=== PATIENT | female | born 1970 | race Hispanic/Latino ===

== ENCOUNTER 2017-02-12 10:13 | Emergency (ER) | payer MEDICARE, MEDICAID ==
[2017-02-12] MEDS ORDERED: predniSONE 20 MG TAB ONE (10:36)
== END 2017-02-12 12:00 | disposition home or self-care (01) ==
LOC: ERS 10:13
DX: J45.901 Unspecified asthma with (acute) exacerbation (principal); K21.9 Gastro-esophageal reflux disease without esophagitis; I10 Essential (primary) hypertension; F41.9 Anxiety disorder, unspecified; F31.9 Bipolar disorder, unspecified
CPT/HCPCS: 93005; 94640; J7506

== ENCOUNTER 2017-03-08 16:27 | Outpatient (CLI) | payer MEDICARE, MEDICAID | END 2017-03-08 16:28 | disposition home or self-care (01) | LOC: BICRAD 16:27 | PROVIDERS: ATTEND Internal Medicine | DX: S93.401A Sprain of unspecified ligament of right ankle, initial encounter (principal); M79.89 Other specified soft tissue disorders ==

== ENCOUNTER 2017-11-20 08:48 | Inpatient (IN) | payer MEDICARE, MEDICAID ==
[2017-11-20 09:05] LABS: #Basophils 0.1 thou/uL (0.0-0.2); #Eosinphils 0.5 thou/uL (0.0-0.7); #Lymphocytes 3.2 thou/uL (1.20-3.40); #Monocytes 0.7 thou/uL (0.11-0.59); #Neutrophils 13.9 thou/uL (1.40-6.50); %Basophils 0.5 % (0.0-1.0); %Eosinophils 2.7 % (0.0-10.0); %Lymphocytes 17.6 % (21.0-51.0); %Monocytes 3.6 % (0.0-10.0); %Neutrophils 75.7 % (42.0-75.0); Hemoglobin 12.9 g/dL (12.0-16.0); Mean Corpuscular Hemoglobin 31.7 pg (27.0-31.0); Mean Platelet Volume 6.7 fL (7.4-10.4); Platelet Count 412 thou/uL (130-400); RBC Distribution Width 12.1 % (11.5-14.5); Red Blood Cell (RBC) Count 4.06 mill/uL (4.20-5.40); White Blood Cell (WBC) Count 18.3 thou/uL (4.8-10.8)
[2017-11-20] MEDS ORDERED: Mannitol 12.5 GM/50 ML ONE ×2 (09:07→09:42)
[2017-11-20] MEDS ORDERED: niCARdipine 20MG In NaCl 20 MG/200 ML BAG ONE (09:07)
[2017-11-20] MEDS ORDERED: manNITOL 20% 250 ML IVPB SCH (09:15)
[2017-11-20 09:19] LABS: INR-International Normal Ratio 0.9; PTT 28.5 SEC (22.9-36.1); Prothrombin Time 12.2 SEC (12.0-14.7)
[2017-11-20 09:21] LABS: ALT (SGPT) 12 U/L (8-55); AST (SGOT) 15 U/L (5-34); Albumin 3.9 g/dL (3.5-5.0); Alkaline Phosphatase 143 U/L (40-150); Anion Gap 16 mmol/L (10-20); BUN (Urea Nitrogen) 7 mg/dL (7.0-18.7); Bilirubin, Total 0.3 mg/dL (0.2-1.2); CK (CPK) 80 U/L (29-168); Calc. Creatinine Clearance 0 mL/min (70-130); Calcium 8.5 mg/dL (7.8-10.44); Carbon Dioxide 18 mmol/L (22-29); Chloride 104 mmol/L (98-107); Estimated GFR-MDRD 88; Globulin 3.2 g/dL (2.4-3.5); Glucose 285 mg/dL (70-105); Potassium 3.4 mmol/L (3.5-5.1); Protein, Total 7.1 g/dL (6.0-8.3); Sodium 135 mmol/L (136-145)
[2017-11-20 09:28] LABS: CKMB 1.7 ng/mL (0-6.6); Troponin I Less than 0.010 ng/mL (< 0.028)
--- NOTE | 2017-11-20 09:34 | CT ---
CT BRAIN: Date: 11-20-17 Provided Clinical History: Headache. FINDINGS: No comparisons. There is a large right parenchymal hematoma centered in the expected location of the right lentiform nucleus/thalamus region. This measures at least 6.7 x 4.6 cm in greatest transverse d imensions. There is surrounding vasogenic edema extending into the right cerebral peduncle and rancho. There is approximately 8 mm of right to left midline shift. There is right sided uncal herniation. Th e ventricular system is not enlarged. Intervertebral extension is not definitely identified. There is poor visualization of the CHF density in the region of the foramen magnum which may reflect herniati on. There is effacement of the basilar cisterns as well. The extracranial soft tissues and osseous structures appear unremarkable. IMPRESSION: Large parenchymal hematoma involving the right cerebrum as described above associated with vasogenic edema and prominent mass effect. Follow up brain MRI with and without IV contrast recommended after r esolution of hemorrhage to evaluate for underlying mass. Findings and recommendations discussed with Dr. Davison in the Emergency Department at 8:59 a.m. 11-20-17. POS: [facility]
--- NOTE | 2017-11-20 09:35 | CT ---
CERVICAL SPINE CT NONCONTRAST: INDICATION: Fall with back injury and pain. Stroke. FINDINGS: There is no evidence of a fracture or subluxation of the cervical spine. There is motion artifact wh ich limits assessment and degrades image quality. IMPRESSION: No acute osseous abnormality of the cervical spine. POS: [facility]
[2017-11-20] MEDS ORDERED: manNITOL 20% 0 ML ONE ×2 (09:38→09:40)
[2017-11-20] MEDS ORDERED: Thrombin 5000 UNITS/5 ML VIAL ONE (09:42)
[2017-11-20] MEDS ORDERED: Lidocaine 0.5%/Epinephrine 1:200,000 50 ml Vial ONE (09:42)
[2017-11-20] MEDS ORDERED: Sodium Chloride 0.9% 10 ML ONE (09:43)
[2017-11-20 10:12] LABS: Bilirubin Negative (Negative); Blood, Urine Negative (Negative); Clarity CLEAR (Clear); Glucose, Urine (Dipstick) >=1000 mg/dL (Negative); Leukocyte Negative (Negative); Nitrite Negative (Negative); Protein, Urine (Dipstick) Trace mg/dL (Neg-Trace); Specific Gravity, Urine 1.016 (1.002-1.036); Urobilinogen 0.2 mg/dL (0.2-1.0); pH, Urine 6.5 (5.0-9.0)
[2017-11-20 10:21] LABS: Pregnancy Test - Urine (BHCG) Negative (Negative); Pregu Control Background? CLEAR/WHITE (CLR/WHITE); Pregu Control Bar Appear? YES (CONTROL BAR); Specific Gravity 1.016 (1.002-1.036)
[2017-11-20] MEDS ORDERED: Insulin Regular 300 UNITS/3 ML VIAL ONE (10:44)
[2017-11-20] MEDS ORDERED: Fosphenytoin Sodium 500 mg/10 ml Vial ONE (10:44)
--- NOTE | 2017-11-20 11:19 | PRG ---
DATE OF SERVICE: 11/20/2017. SUBJECTIVE: Ms. Norwood is a 47-year-old female that abruptly lost consciousness and was brought to the ER. A CT scan performed in the emergency room revealed the presence of a large intracerebral hematoma within the frontal and temporal lobes on the right side. This produces a substantial degree of mass effect. There is midline shift associated with this hemorrhage. In the ER, she was comatose. She was rapid sequence intubated. She was given mannitol. The plan from a neurosurgical perspective will be one of a hemicraniectomy. My suspicion is this represents an underlying AVM, although other etiologies are possible. I had a discussion with the family and discussed with them the imaging findings, the diagnosis, the planned surgical procedure as well as her critical neurologic state. JUAN
[2017-11-20] MEDS ORDERED: Bacitracin Zinc Ointment 30 gm TUBE ONE (11:25)
--- NOTE | 2017-11-20 11:34 | RAD ---
PORTABLE CHEST: 11/20/2017 PROVIDED CLINICAL HISTORY: Shortness of breath. COMPARISON: 01/26/2011 FINDINGS: Evaluation is limited by patient body habitus. The cardiac silhouette appears prominent, which may b e at least partially on the basis of portable technique. An endotracheal tube is noted, the tip of w hich projects in the region of the thoracic inlet. Air space disease involving bilateral upper lung zones cannot be excluded. The supine nature of the study limits sensitivity for detection of pleural fluid or pneumothorax. IMPRESSION: 1. Endotracheal tube placed, as above. 2. Possible upper lung zone air space disease. POS: [facility]
[2017-11-20] MEDS ORDERED: Ondansetron PF 4 MG/2 ML Vial IVP PRN (12:03)
[2017-11-20] MEDS ORDERED: diphenhydrAMINE 50 MG/ML VIAL IVP PRN (12:03)
[2017-11-20] MEDS ORDERED: Ventilator Sedation Protocol 1 EACH FS ONE (12:12)
[2017-11-20] MEDS ORDERED: niCARdipine 40MG In NaCl 40 MG/200 ML BAG IVPB SCH (12:15)
[2017-11-20] MEDS ORDERED: Dextrose 5% in Water 1,000 ML IV PRN (12:25)
[2017-11-20] MEDS ORDERED: Dextrose 50% Abboject 50 ML SYRINGE SLOW IVP PRN (12:25)
[2017-11-20 12:32] LABS: Actual Bicarbonate (HCO3a) 19.7 mEq/L (22-28); Base Excess (BEa) -4.7 mEq/L (-2.0 to +3.0); CO2 Tension 34.5 mmHg (35.0-45.0); Calcium, Ionized 1.04 mmol/L (1.12-1.30); O2 Tension (PaO2) 111.4 mmHg (80.0-100.0); Potassium - ABG Lab 3.01 mmol/L (3.70-5.30); pH, Arterial 7.38 (7.35-7.45)
[2017-11-20 12:33] LABS: ALV-art Gradient 130.675 (0-20); Puncture Site ALINE
[2017-11-20] MEDS ORDERED: CCU Electrolyte Replacement 1 EACH FS ONE (12:34)
[2017-11-20] MEDS ORDERED: Fentanyl BOLUS 250 ML IVPB PRN (12:38)
[2017-11-20] MEDS ORDERED: Propofol BOLUS 1,000 MG/100 ML VIAL IV PRN (12:38)
[2017-11-20] MEDS ORDERED: DISCONTINUE PREVIOUS NARCOTIC PAIN MEDICATIONS AND BENZODIAZEPINES FS SCH (12:38)
[2017-11-20] MEDS ORDERED: Lorazepam 2 MG/ML VIAL SLOW IVP PRN (12:38)
[2017-11-20] MEDS ORDERED: Potassium Chloride 40 MEQ in Sodium Chloride 0.9% 250 ML 250 ML IVPB PRN (12:40)
[2017-11-20] MEDS ORDERED: Magnesium 2 GM/NS 0.9% 100 ML 2 GM in Premix Bag 1 BAG IVPB PRN (12:40)
[2017-11-20] MEDS ORDERED: Potassium Phosphate 9 MMOL in Sodium Chloride 0.9% 100 ML IVPB PRN (12:40)
[2017-11-20] MEDS ORDERED: Potassium Phosphate 12 MMOL in Sodium Chloride 0.9% 250 ML 250 ML IV PRN (12:40)
[2017-11-20] MEDS ORDERED: Potassium Phosphate 15 MMOL in Sodium Chloride 0.9% 250 ML 250 ML IV PRN (12:40)
[2017-11-20] MEDS ORDERED: Potassium Chloride 20 MEQ TAB PO PRN (12:40)
[2017-11-20] MEDS ORDERED: CCU ELECTROLYTE REPLACEMENT PROTOCOL FS PRN (12:40)
[2017-11-20] MEDS ORDERED: Magnesium Oxide 400 MG TAB PO PRN ×2 (12:40)
--- NOTE | 2017-11-20 13:11 | RAD ---
ONE VIEW CHEST: COMPARISON: 11/20/2017. HISTORY: Line placement. FINDINGS: Redemonstration of endotracheal tube. Interval placement of nasogastric tube which extends beyond th e diaphragm. Distal tip is not seen. Left-sided subclavian central venous catheter appears to termi jamaal in the expected region of the superior vena cava. No pneumothorax. IMPRESSION: 1. Redemonstration endotracheal tube. 2. Interval placement of an nasogastric tube and left-sided central venous catheter. No pneumothora x. POS: [facility]
[2017-11-20] MEDS: Propofol 1,000 MG/100 ML VIAL IV PRN ×2 (13:42→23:58)
[2017-11-20] MEDS: Potassium Chloride 40 MEQ in Premix Bag 1 BAG IVPB PRN (13:47)
[2017-11-20] MEDS: Sodium Chloride 0.9% 1,000 ML IV SCH ×2 (13:48→23:20)
[2017-11-20] MEDS: Fosphenytoin Sodium 100 MG in Sodium Chloride 0.9% 50 ML IVPB SCH ×2 (14:08→23:19)
--- NOTE | 2017-11-20 14:41 | OP ---
DATE OF SERVICE: 11/20/2017 SURGEON: Rodríguez Jeong M.D. TRANSIT DEPARTMENT CLERK: Cleveland Davila PA-C. INDICATION: Prevent neurologic decline. DIAGNOSIS: Large right intracerebral hemorrhage. PROCEDURE: Right hemicraniectomy with duraplasty. ANESTHESIA: General. TECHNIQUE: The patient was brought to the operating room and placed under general anesthesia. She w as placed on the table in a supine position. Her head was turned to the right and shaved. A large c over linear incision was planned over the scalp. After prepping and draping and after an appropriate pause, the incision was created. The scalp was reflected anteriorly for exposure of the skull. Sev eral bur holes were placed and the bur holes were subsequently connected with the router drill bit. Bone flap was removed and put into sterile cold storage. The dura was subsequently identified and se veral incisions were made and the dura was reflected laterally for exposure of the underlying brain, which was found to be a darkly discolored and under a significant amount of pressure. After obtainin g hemostasis, the Silastic sheeting was placed over the dural defect. The wound was then closed in a natomic layers. The procedure came to an end without complication.
--- NOTE | 2017-11-20 14:51 | CON ---
DATE OF CONSULTATION: 11/20/2017 CONSULTING PHYSICIAN: Dr. Ted Jeong REASON FOR CONSULTATION: ICU management. Following encompasses 45 minutes critical care time spent with the patient. HISTORY OF PRESENT ILLNESS: The patient is a 47-year-old female who apparently lost consciousness at home. She was brought to the ER. She was found to have a right mid brain intracranial bleed which is quite large. There was midline shift. She underwent a Hemoclip craniectomy earlier. She is curr ently on mechanical ventilation in the CCU. It is difficult to assess her neuro status at that time because she was paralyzed for the procedure and remained paralyzed. PAST MEDICAL HISTORY: 1. Gastroesophageal reflux. 2. Hypertension. 3. Asthma. PAST SURGICAL HISTORY: Cholecystectomy. PSYCHIATRIC HISTORY: Bipolar disorder, anxiety, depression. SOCIAL HISTORY: Nonsmoker, does not consume alcohol. ALLERGIES: CODEINE. MEDICATIONS: Prior to admission, not known. REVIEW OF SYSTEMS: Cannot be obtained. The patient is currently on mechanical ventilation. PHYSICAL EXAMINATION: VITAL SIGNS: Pulse 88, blood pressure 160/64, O2 sat 100%, respiratory rate 21. GENERAL: The patient is currently on mechanical ventilation. HEENT: Right pupil 6 mm, unreactive. Left pupil 3 mm, sluggishly reactive. Sclerae are anicteric. Oropharynx clear. NECK: No adenopathy or JVD. LUNGS: Clear without wheezing or rhonchi. CARDIOVASCULAR: S1, S2 regular without murmur. ABDOMEN: Soft, obese, nontender, nondistended. EXTREMITIES: No clubbing, cyanosis, or edema. LABORATORY DATA: White blood cell count 18.3, hematocrit 39, platelet count 412. INR 0.9. Sodium 1 35, potassium 3.4, chloride 104, CO2 18, BUN 7, creatinine 0.7, glucose 285, troponin 0.01. Chest x-ray showed no mass, effusion or infiltrate. CT of the head showed a large right-sided intrac ranial bleed. ASSESSMENT: 1. Hypertensive bleed. 2. Comatose state. 3. Respiratory failure, requiring mechanical ventilation. 4. Uncontrolled diabetes mellitus. PLAN: 1. Nicardipine drip for blood pressure control. 2. Start insulin drip for blood sugar control. 3. Adjust mechanical ventilation settings per blood gas. 4. Continue generalized supportive care. The patient's prognosis appears quite poor.
[2017-11-20] MEDS ORDERED: Fosphenytoin Sodium 100 mg/2 ml Vial IVPB SCH (15:00)
[2017-11-20] MEDS: Mannitol 12.5 GM/50 ML SLOW IVP SCH ×2 (16:51→23:21)
[2017-11-20] MEDS: CEFAZOLIN/Water 2 GM/20 ML SYRINGE SLOW IVP SCH (16:51)
[2017-11-20] MEDS ORDERED: PHENYLEPHRINE-NS 100 MCG/ML 10 ML SYRINGE ONE (16:58)
[2017-11-20] MEDS ORDERED: PROPOFOL 200 MG/20 ML VIAL ONE (16:58)
[2017-11-20 18:50] LABS: Potassium 3.8 mmol/L (3.5-5.1)
[2017-11-20] MEDS: Labetalol HCl 100 MG/20 ML VIAL SLOW IVP PRN (19:56)
[2017-11-20] MEDS: Famotidine/PF 20 mg/2ml Vial SLOW IVP SCH (20:21)
[2017-11-20] MEDS: niCARdipine HCl 50 MG in Sodium Chloride 0.9% 250 ML 230 ML IVPB SCH (20:31)
[2017-11-20] MEDS: fentaNYL Citrate/PF 2,000 MCG in Sodium Chloride 0.9% 60 ML IV SCH (22:25)
[2017-11-21] MEDS: CEFAZOLIN/Water 2 GM/20 ML SYRINGE SLOW IVP SCH (00:14)
[2017-11-21] MEDS: Labetalol HCl 100 MG/20 ML VIAL SLOW IVP PRN ×3 (00:14→21:02)
[2017-11-21 03:55] LABS: #Lymphocytes 1.6 thou/uL (1.20-3.40); #Monocytes 0.8 thou/uL (0.11-0.59); #Neutrophils 8.6 thou/uL (1.40-6.50); %Basophils 0.1 % (0.0-1.0); %Eosinophils 0.1 % (0.0-10.0); %Lymphocytes 14.7 % (21.0-51.0); %Monocytes 7.1 % (0.0-10.0); Hemoglobin 10.8 g/dL (12.0-16.0); Mean Corpuscular HGB CONC 33.7 g/dL (32.0-36.0); Mean Corpuscular Hemoglobin 32.5 pg (27.0-31.0); Mean Corpuscular Volume 96.3 fL (78.0-98.0); Mean Platelet Volume 6.8 fL (7.4-10.4); Platelet Count 391 thou/uL (130-400); RBC Distribution Width 12.2 % (11.5-14.5); Red Blood Cell (RBC) Count 3.32 mill/uL (4.20-5.40)
[2017-11-21] MEDS: Sodium Chloride 0.9% 1,000 ML IV SCH ×3 (05:13→20:36)
[2017-11-21] MEDS: Mannitol 12.5 GM/50 ML SLOW IVP SCH ×2 (05:14→11:20)
--- NOTE | 2017-11-21 07:18 | CT ---
CT BRAIN WITHOUT CONTRAST: Date: 11/21/17 INDICATION: Status post craniotomy. COMPARISON: CT of the brain dated 11/20/17. FINDINGS: The large intraparenchymal hematoma centered within the region of the right lentiform nucleus is rela tively stable in size measuring 6.5 x 4.6 cm. Surrounding vasogenic edema has increased; however, the re has been interval performance of a right frontotemporal craniectomy. The added mass effect from th e vasogenic edema and hematoma causes some herniation of brain tissue out of the craniectomy site. Th ere is an overlying dural sleeve cover overlying the craniectomy site. There is improvement in the ri ght to left midline shift previously of 8.0 mm, now 1.8 mm. There is vasogenic edema and hemorrhage s een within the right mid brain extending into the right paramedian rancho, which is an interval develop ment since the prior exam. There has been some improvement in the effacement seen within the preponti ne cistern when compared to the prior exam. There is a small amount of layered hemorrhage within the posterior horns of the lateral ventricles bilaterally. No hydrocephalus is evident. Mastoid air cells are clear. The patient is intubated. IMPRESSION: 1. Interval right frontotemporal craniectomy with improvement in the right to left midline shift, no w only a small amount of residual right to left midline shift of 1.8 mm. 2. Large intraparenchymal hematoma centered within the right lentiform nucleus is relatively stable. There is worsening vasogenic edema surrounding the hematoma site with some herniation of brain out o f the right frontotemporal craniectomy site. There have been evolutionary changes of hemorrhage exten merlin into the right mid brain, as well as the right paramedian rancho. 3. Small amount of layered hemorrhage is seen within the posterior horns of the lateral ventricles w ithout evidence of hydrocephalus. POS: [facility]
[2017-11-21 07:24] LABS: Base Excess (BEa) -2.4 mEq/L (-2.0 to +3.0); CO2 Tension 36.4 mmHg (35.0-45.0); Calcium, Ionized 1.05 mmol/L (1.12-1.30); Carboxyhemoglobin (COHb) 0.8 gm% (0.0-3.0); Hemoglobin (Hb) 11.1 g/dL (12.0-16.0); O2 Tension (PaO2) 103.6 mmHg (80.0-100.0); Potassium - ABG Lab 3.61 mmol/L (3.70-5.30)
[2017-11-21 07:27] LABS: Puncture Site ALINE
[2017-11-21 08:00] LABS: Anion Gap 14 mmol/L (10-20); BUN (Urea Nitrogen) 9 mg/dL (7.0-18.7); Calc. Creatinine Clearance 179 mL/min (70-130); Calcium 7.9 mg/dL (7.8-10.44); Carbon Dioxide 20 mmol/L (22-29); Chloride 111 mmol/L (98-107); Estimated GFR-MDRD Greater than 90; Glucose 134 mg/dL (70-105); Potassium 3.7 mmol/L (3.5-5.1); Sodium 141 mmol/L (136-145)
--- NOTE | 2017-11-21 08:53 | PRG ---
DATE OF SERVICE: 11/21/2017 Thirty-five minutes critical care time. This patient remains intubated on mechanical ventilation. PHYSICAL EXAMINATION: VITAL SIGNS: Temperature 99.7, pulse 83, blood pressure 126/69. Currently on no vasopressor, but is requiring nicardipine drip at 50 mg per hour. Total intake for the last 24 hours 945, output 1855. HEENT: Pupils reacts on the left, fixed on the right, has periorbital edema, right. NECK: No adenopathy or JVD. LUNGS: Clear. CARDIOVASCULAR: S1, S2 regular. ABDOMEN: Soft, obese, nontender, nondistended. EXTREMITIES: No clubbing or cyanosis. NEURO: Neurologically, she can move her right arm to command, right foot to command. She is hemipl egic on the left. CT shows a large intraparenchymal bleed on the right. Chest x-ray showed a high endotracheal tube. This was pushed down to 24 cm. LABORATORY DATA: Chemistry pending. White blood cell count 11, hematocrit 32, platelet count 391. INR 0.9, pH 7.4, pCO2 36, pO2 of 103, potassium level 3.6, sodium 139. ASSESSMENT: 1. Acute respiratory failure secondary to large intracranial bleed. 2. Intracranial bleed with left-sided hemiplegia and right-sided blown pupil. 3. Comatose state, which has improved. 4. Diabetes mellitus. 5. Hypertension. PLAN: 1. Continue nicardipine drip. 2. Change to Lantus insulin and discontinue insulin drip. 3. Place on CPAP pressure support ventilation and monitor. I am not quite sure neurologically she i s quite in shape to extubate yet. 4. Initiate enteral tube feeds.
[2017-11-21] MEDS: Insulin Glargine 10 UNITS in Pre-Filled Syringe 1 EACH SC SCH (09:15)
[2017-11-21] MEDS: Fosphenytoin Sodium 100 MG in Sodium Chloride 0.9% 50 ML IVPB SCH ×3 (09:50→20:34)
[2017-11-21] MEDS: Famotidine/PF 20 mg/2ml Vial SLOW IVP SCH ×2 (09:54→20:34)
[2017-11-21] MEDS: hydrALAZINE 20 MG/ML VIAL SLOW IVP PRN (09:57)
--- NOTE | 2017-11-21 10:35 | PRG ---
DATE OF SERVICE: 11/21/2017 Ms. Norwood is postop day 1 following a right-sided decompressive hemicraniectomy for a large right in traparenchymal hemorrhage. Repeat scan this morning shows significantly improved midline shift with a great amount of protuberance of the right frontal lobe into the craniectomy defect. She also has s ome extension into the right rancho and medulla in an area that on CT scan yesterday is hypodense. For me on examination, she really is not doing much. She is sedated on fentanyl and per the nursing staff, the neuro checks she has been able to raise her thumb on command and squeeze their hand on com aleksandr in the right upper extremity, left upper extremity is flaccid. She has some spontaneous movemen t in the left lower extremity. She moves her right lower extremity spontaneously as well. Pupils ar e unequal, right pupil is blown at 4 mm and nonreactive. Left pupil is 2 mm and sluggishly reactive. She has a gag, cough and corneal reflex. The plan will be to continue to follow along. She will likely need more time before we understand he r complete capability for recovery, but I am encouraged by early neurologic recovery to the point farnaz t she has so far. I will continue to sedate her while she is on the vent and continue q.1 hour neuro checks. She is slightly hypokalemic at 3.4, electrolytes resuscitation is ordered p.r.n. We will co misael to follow. She is on mannitol scheduled 15 grams q.6h. and will continue run lab work as such . Her most recent labs revealed a sodium of 139. Osmolality is ordered as well.
--- NOTE | 2017-11-21 10:35 | PRG ---
DATE OF SERVICE: 11/21/2017. SUBJECTIVE: Ms. Norwood is now 1 day status post right-sided hemicraniectomy. She had a postoperativ e CT scan performed today which shows a near complete resolution of the midline shift. She is sedate d upon my arrival, but per report from nursing and Cleveland Davila, she does follow commands on the r ight side when off of sedation. PLAN: Will be one of ongoing medical management at this point in time. I do not believe she needs a ny mannitol moving forward. We will perform a CT angiogram tomorrow to see if there is an identifiab le lesion. There is a new area of hemorrhage within her brain stem today that was not present yester day. I met with the family today and updated them with respect to her imaging and her current neurol ogic state. I do expect her to have a protracted recovery and will very likely need a PEG and trach as we move fo [facility].
--- NOTE | 2017-11-21 10:35 | RAD ---
CHEST 1 VIEW: Date: 11/21/17 INDICATION: History of intubation. COMPARISON: Prior study dated 03/30/16. FINDINGS: The patient is intubated with ET tube tip seen above the level of the thoracic inlet. This resides 7. 2 cm from the level of the cecy. Advancement of 5.0 cm would put the ET tube tip in the expected po sition. Gastric catheter projections below the left hemidiaphragm, beyond the field of view. There is a left subclavian central venous catheter in place. No pneumothorax is evident. Lungs are clear. Car diomediastinal silhouette is within normal limits. IMPRESSION: 1. ET tube placement. Recommend consideration for advancement. 2. Left subclavian central venous catheter and gastric catheter. 3. Lungs are clear without evidence of acute infiltrate. No pneumothorax is demonstrated. Findings called to Caleb Butts RN caring for this patient, at 0802 hours on 11/21/17. CODE CR. POS: [facility]
[2017-11-21] MEDS: Propofol 1,000 MG/100 ML VIAL IV PRN ×2 (12:20→20:37)
[2017-11-21] MEDS: niCARdipine HCl 50 MG in Sodium Chloride 0.9% 250 ML 230 ML IVPB SCH ×2 (12:30→22:15)
[2017-11-21 14:36] LABS: Anion Gap 8 mmol/L (10-20); BUN (Urea Nitrogen) 10 mg/dL (7.0-18.7); Calc. Creatinine Clearance 188 mL/min (70-130); Calcium 7.8 mg/dL (7.8-10.44); Carbon Dioxide 23 mmol/L (22-29); Chloride 112 mmol/L (98-107); Estimated GFR-MDRD Greater than 90; Glucose 142 mg/dL (70-105); Potassium 3.6 mmol/L (3.5-5.1); Sodium 139 mmol/L (136-145)
--- NOTE | 2017-11-21 16:23 | HP-2 ---
DATE OF ENCOUNTER: 11/20/2017 at approximately 10:15 a.m. HISTORY OF PRESENT ILLNESS: Ms. Norwood is a 47-year-old woman, who was last seen normal around 07:30 this morning at home. She reportedly collapsed in her home and was found unresponsive and comatose. CT scan performed in the emergency department at [facility] where she was transported by EMS, reve als a large intraparenchymal hemorrhage in the right frontal and temporal lobes with midline shift of roughly 9 mm right to left, which certainly accounts for the symptoms that she is experiencing. PAST MEDICAL HISTORY: Includes hypertension, asthma, anxiety, bipolar disorder, and depression. PAST SURGICAL HISTORY: Cholecystectomy. ALLERGIES: CODEINE. MEDICATIONS: Unassessed. PHYSICAL EXAMINATION: VITAL SIGNS: Blood pressure of 171/113, pulse 67, respirations 17, O2 sat 98% on room. HEENT: Pupils, right side is fixed, dilated at 4 mm, nonreactive to light. Left is 2 mm, sluggishly reactive to light. She has no response to deep noxious stimuli. She does have maintained corneal r eflex, gag and cough reflex. The patient was in rapid sequence intubated while she was in the depart ment and I no longer was able to obtain a full neurologic examination given her airway compromise. ASSESSMENT: Acute intracerebral hemorrhage and coma. PLAN: At this time, patient is being prepped and readied for emergent right hemicraniectomy and poss ible clot evacuation. Plan was discussed with Dr. Jeong or team on the way.
[2017-11-21 20:32] LABS: Anion Gap 10 mmol/L (10-20); BUN (Urea Nitrogen) 10 mg/dL (7.0-18.7); Calc. Creatinine Clearance 188 mL/min (70-130); Calcium 8.1 mg/dL (7.8-10.44); Carbon Dioxide 23 mmol/L (22-29); Chloride 112 mmol/L (98-107); Estimated GFR-MDRD Greater than 90; Glucose 172 mg/dL (70-105); Potassium 3.6 mmol/L (3.5-5.1); Sodium 141 mmol/L (136-145)
[2017-11-22] MEDS: Labetalol HCl 100 MG/20 ML VIAL SLOW IVP PRN ×3 (00:03→08:14)
[2017-11-22] MEDS: Insulin Regular 300 UNITS/3 ML VIAL SC PRN ×3 (00:18→08:14)
[2017-11-22] MEDS: hydrALAZINE 20 MG/ML VIAL SLOW IVP PRN ×2 (02:54→05:30)
[2017-11-22] MEDS: fentaNYL Citrate/PF 2,000 MCG in Sodium Chloride 0.9% 60 ML IV SCH (03:50)
[2017-11-22] MEDS: niCARdipine HCl 50 MG in Sodium Chloride 0.9% 250 ML 230 ML IVPB SCH ×4 (05:33→20:28)
[2017-11-22] MEDS: Propofol 1,000 MG/100 ML VIAL IV PRN ×3 (05:33→21:02)
[2017-11-22 06:28] LABS: #Lymphocytes 1.2 thou/uL (1.20-3.40); #Monocytes 0.7 thou/uL (0.11-0.59); #Neutrophils 11.2 thou/uL (1.40-6.50); %Basophils 0.1 % (0.0-1.0); %Eosinophils 0.3 % (0.0-10.0); %Lymphocytes 9.4 % (21.0-51.0); %Neutrophils 85.3 % (42.0-75.0); Hemoglobin 9.9 g/dL (12.0-16.0); Mean Corpuscular Hemoglobin 31.9 pg (27.0-31.0); Mean Corpuscular Volume 96.9 fL (78.0-98.0); Mean Platelet Volume 6.6 fL (7.4-10.4); Platelet Count 356 thou/uL (130-400); RBC Distribution Width 12.4 % (11.5-14.5); Red Blood Cell (RBC) Count 3.11 mill/uL (4.20-5.40); White Blood Cell (WBC) Count 13.1 thou/uL (4.8-10.8)
[2017-11-22 06:39] LABS: Actual Bicarbonate (HCO3a) 22.8 mEq/L (22-28); Base Excess (BEa) -0.8 mEq/L (-2.0 to +3.0); CO2 Tension 33.5 mmHg (35.0-45.0); Carboxyhemoglobin (COHb) 0.4 gm% (0.0-3.0); Hemoglobin (Hb) 10.4 g/dL (12.0-16.0); Potassium - ABG Lab 3.24 mmol/L (3.70-5.30); pH, Arterial 7.45 (7.35-7.45)
[2017-11-22 06:40] LABS: Puncture Site LINE
[2017-11-22 06:41] LABS: ALV-art Gradient 193.325 (0-20)
[2017-11-22] MEDS ORDERED: Furosemide 40 MG/4 ML VIAL SLOW IVP SCH (07:45)
[2017-11-22] MEDS: Famotidine/PF 20 mg/2ml Vial SLOW IVP SCH ×2 (08:10→22:40)
[2017-11-22] MEDS: Insulin Glargine 10 UNITS in Pre-Filled Syringe 1 EACH SC SCH (08:12)
[2017-11-22] MEDS: Fosphenytoin Sodium 100 MG in Sodium Chloride 0.9% 50 ML IVPB SCH ×3 (08:12→20:59)
--- NOTE | 2017-11-22 09:56 | PRG ---
DATE OF SERVICE: 11/22/2017 Thirty-five minutes critical care time. SUBJECTIVE: The patient remains intubated on mechanical ventilation. There have been no acute jacinto es overnight. PHYSICAL EXAMINATION: VITAL SIGNS: Temperature is 98.8 with T-max 99.3, pulse 101, blood pressure 155/70. She is currentl y on propofol and fentanyl for sedation. She is also on nicardipine drip at 12 mg per hour. A 24-ho ur intake 4093, output 1805. HEENT: Unremarkable except for the bandage around her head and periorbital edema. Her pupils are raphael th reactive. Sclerae are anicteric. Oropharynx clear. NECK: No JVD. LUNGS: Coarse rhonchi bilaterally. CARDIOVASCULAR: S1, S2, slightly tachycardic. ABDOMEN: Soft, obese, nontender, nondistended. EXTREMITIES: No clubbing, cyanosis, but has 2+ edema throughout. NEUROLOGIC: She can move her right arm and right leg, but is hemiparetic on the left. LABORATORY DATA: Sodium 141, potassium 3.6, chloride 112, CO2 of 23, BUN 10, creatinine 0.6, glucose 172. White blood cell count 13, hematocrit 30, platelet count 356, pH 7.45, pCO2 of 33, pO2 of 50 o n CPAP 5, pressure support 10, FiO2 40%. ASSESSMENT: 1. Acute respiratory failure requiring mechanical ventilation. 2. Status post intracranial hemorrhage. 3. Left-sided hemiparesis. 4. Fluid overloaded. 5. Diabetes mellitus. PLAN: 1. Continue nicardipine drip. 2. Stop IV fluids and give one dose of Lasix. 3. Put back on increased support on mechanical ventilation due to hypoxemia this morning. I think t hat is probably secondary to pulmonary edema. 3. Continue the sliding scale insulin with the daily, Lantus. 4. Continue enteral tube feeds.
--- NOTE | 2017-11-22 09:58 | RAD ---
PORTABLE CHEST: Date: 11/22/17 HISTORY: Respiratory distress. COMPARISON: 11/21/17 study. FINDINGS: The patient is rotated on this exam. Endotracheal and NG tubes appear to be in satisfactory position. Heart size appears slightly enlarged. There appear to be some subsegmental atelectatic changes in th e lung bases. IMPRESSION: 1. Endotracheal tube which is in satisfactory position, with NG tube below the hemidiaphragm. 2. Minimal subsegmental atelectatic changes in the lung bases. POS: [facility]
--- NOTE | 2017-11-22 10:30 | CT ---
PRELIMINARY REPORT/[facility]/EMERGENTY AFTER-HOURS PROCEDURE CT Angiography Head With Intravenous Contrast EXAM DATE/TIME: 11/22/2017 4:12 AM CLINICAL HISTORY: 47 years old, female; Condition or disease; Other: Ich TECHNIQUE: Axial computed tomographic angiography images of the head with intravenous contrast using CT angiogra phy protocol. MIP reconstructed images were created and reviewed. COMPARISON: CT Brain WO Con 11/21/2017 3:51 AM FINDINGS: Right internal carotid artery: 3-4 mm outpouching of contrast along the posterior aspect of the right internal carotid artery clinoid segment. Mild apparent narrowing of the right carotid terminus. Right anterior cerebral artery: Unremarkable. No occlusion or significant stenosis. No aneurysm. Right middle cerebral artery: Lobular, somewhat bilobed aneurysmal dilatation of the right MCA bifurc ation measuring up to 5 mm in diameter and approximately 10 mm in length. Right posterior cerebral artery: Unremarkable. No occlusion or significant stenosis. No aneurysm. Right vertebral artery: Unremarkable. No occlusion or significant stenosis. No aneurysm. Left internal carotid artery: Unremarkable. Intracranial segment is patent with no significant stenosis. No aneurysm. Left anterior cerebral artery: Unremarkable. No occlusion or significant stenosis. No aneurysm. Left middle cerebral artery: Relatively diminished enhancement within the distal branches of the left MCA without discrete filling defect. Left posterior cerebral artery: Unremarkable. No occlusion or significant stenosis. No aneurysm. Left vertebral artery: Unremarkable. No occlusion or significant stenosis. No aneurysm. Basilar artery: Unremarkable. No occlusion or significant stenosis. No aneurysm. HEAD: Brain: Large right frontotemporal parenchymal hemorrhage extending along the cerebral peduncle and mi dbrain with surrounding edema, grossly similar to previous exam. New 1 x 0.4 cm focus of hemorrhage p eripherally in the right posterior temporal lobe and new area of serpiginous hemorrhage within the chua perior right frontal lobe protruding through the craniectomy defect. Mass effect and mild midline viraj ft, grossly unchanged. Small amount of blood products in the occipital horns of the lateral ventricle s similar to previous exam. IMPRESSION: 1. Small new focus of hemorrhage within the right temporal lobe and new serpiginous hemorrhage within the protruding right superior frontal lobe 2. Aneurysm at the right MCA bifurcation. 3. Suspected right ICA aneurysm and mild apparent narrowing of the right carotid terminus. 4. Relatively diminished opacification of the distal left MCA branches possibly related to timing. The findings were verbally communicated via telephone conference with SALEEM Mosqueda at 5:26 AM CD T on 11/22/2017. Thank you for allowing us to participate in the care of your patient. Dictated and Authenticated by: Oleg Petersen MD 11/22/2017 5:26 AM Central Time ([place] & [place]) FINAL REPORT CT ANGIOGRAM OF THE HEAD: Date: 11/22/17 HISTORY: Aneurysm. COMPARISON: Noncontrast head CT dated 11/21/16. FINDINGS/IMPRESSION: This report is in agreement with the preliminary report by Janet. Findings suggesting a possible aneur ysm involving the posterior aspect of the right internal carotid artery at the anterior clinoid segme nt. Additionally, there appears to be a bilobed aneurysm in the right middle cerebral artery bifurcat ion. There is interval development of new hemorrhage in the right frontal lobe as described on the pr eliminary report by Janet. Postsurgical changes are again demonstrated. The possibility of ischemia in volving the right frontal and parietal lobe near the vertex cannot be excluded. There is decreased op acification of the left MCA distribution, nonspecific. POS: [facility]
--- NOTE | 2017-11-22 14:45 | RAD ---
LEFT ANKLE THREE VIEWS: History: 47-year-old female with history of left ankle pain and bruising following injury. FINDINGS: There is a displaced, slightly comminuted fracture of the distal fibular metadiaphysis as well as abn ormal widening of the medial malleolus, medial talus space evidence for some disruption of the ankle mortise and associated injury of the deltoid ligament. IMPRESSION: Displaced distal left tibial fracture and abnormal widening of the ankle mortise with evidence for di sruption of the deltoid ligament. Orthopedic consult in this regards should certainly be considered. There is a probable tiny associated avulsion fracture chip medially. POS: [facility]
--- NOTE | 2017-11-22 21:23 | PRG ---
DATE OF SERVICE: 11/22/2017 SUBJECTIVE: Ms. Norwood is a 47-year-old female that presented 2 days ago with right sided intracerebral hemorrhage. She underwent an emergent hemicraniectomy. She has had a couple of postoperative CT scans since, which show resolution of her midline shift. Off sedation, she does follow commands. She underwent CT angiography today, which reveals what may be an MCA bifurcation region aneurysm. She has improved clinically since presentation. The plan will be to take her to the angiogram suite tomorrow for the purposes of cerebral angiography and potential for endovascular coiling of her aneurysm. JUAN
[2017-11-22] MEDS: Sodium Chloride 0.9% 1,000 ML IV SCH (22:40)
[2017-11-23] MEDS: Propofol 1,000 MG/100 ML VIAL IV PRN ×3 (04:53→20:23)
[2017-11-23] MEDS: niCARdipine HCl 50 MG in Sodium Chloride 0.9% 250 ML 230 ML IVPB SCH ×2 (05:40→15:12)
[2017-11-23 06:10] LABS: #Eosinphils 0.1 thou/uL (0.0-0.7); #Lymphocytes 1.5 thou/uL (1.20-3.40); #Monocytes 0.8 thou/uL (0.11-0.59); #Neutrophils 10.3 thou/uL (1.40-6.50); %Basophils 0.2 % (0.0-1.0); %Eosinophils 0.6 % (0.0-10.0); %Lymphocytes 11.7 % (21.0-51.0); %Neutrophils 81.5 % (42.0-75.0); Mean Corpuscular HGB CONC 33.7 g/dL (32.0-36.0); Mean Corpuscular Hemoglobin 32.6 pg (27.0-31.0); Mean Corpuscular Volume 96.5 fL (78.0-98.0); Mean Platelet Volume 6.6 fL (7.4-10.4); Platelet Count 410 thou/uL (130-400); RBC Distribution Width 12.6 % (11.5-14.5); Red Blood Cell (RBC) Count 3.08 mill/uL (4.20-5.40); White Blood Cell (WBC) Count 12.6 thou/uL (4.8-10.8)
[2017-11-23 06:29] LABS: Anion Gap 11 mmol/L (10-20); BUN (Urea Nitrogen) 10 mg/dL (7.0-18.7); Calc. Creatinine Clearance 212 mL/min (70-130); Calcium 8.5 mg/dL (7.8-10.44); Carbon Dioxide 24 mmol/L (22-29); Chloride 107 mmol/L (98-107); Estimated GFR-MDRD Greater than 90; Glucose 142 mg/dL (70-105); Sodium 139 mmol/L (136-145)
--- NOTE | 2017-11-23 07:25 | CON ---
DATE OF CONSULTATION: 11/23/2017 CONSULTING PHYSICIAN: Dr. Billy Obando HISTORY OF PRESENT ILLNESS: She is a 47-year-old female who is currently intubated. We were asked b y Trauma to see patient. Apparently on 11/20/2017 she was found down. She has had some brain surgery for intraparenchymal hemorrhage. She is going for a coiling this morning. I am unable to get any h istory, past medical history from the patient, but what limited information I do have per patient's n otes is her past medical history is positive for hypertension, asthma, anxiety, bipolar disorder, dep ression. PAST SURGICAL HISTORY: Cholecystectomy. ALLERGIES: CODEINE. MEDICATIONS: Unknown currently. FAMILY HISTORY: Unknown. The rest of history is unobtainable due to intubation status. REVIEW OF SYSTEMS: Unobtainable. PHYSICAL EXAMINATION: GENERAL: Female resting in bed, intubated, sedated, no obvious distress. HEENT: Some swelling right side of her face, otherwise no obvious injuries. EXTREMITIES: Upper extremities; normal bulk, tone. Lower extremities; equal size, shape, symmetry, normal bulk and tone the exception of her left ankle is definitely a little more swollen. There is no pitting edema. I am able to move ankle around without any response from the patient. She does leon ve some good DP, PT pulses. ASSESSMENT: 1. Intraparenchymal hemorrhage. 2. The patient was noted to have some swelling, x-rays gathered left ankle fracture. PLAN: Dr. Obando and I reviewed the patient's history notes. This is not urgent, we will get her into a walking boot, plan on doing surgery possibly next week.
[2017-11-23] MEDS ORDERED: Furosemide 40 MG/4 ML VIAL SLOW IVP SCH (07:45)
[2017-11-23 07:56] LABS: Actual Bicarbonate (HCO3a) 24.2 mEq/L (22-28); CO2 Tension 33.4 mmHg (35.0-45.0); Calcium, Ionized 1.08 mmol/L (1.12-1.30); Carboxyhemoglobin (COHb) 0.4 gm% (0.0-3.0); Hemoglobin (Hb) 10.5 g/dL (12.0-16.0); O2 Tension (PaO2) 67.8 mmHg (80.0-100.0); Potassium - ABG Lab 2.98 mmol/L (3.70-5.30); pH, Arterial 7.48 (7.35-7.45)
[2017-11-23 07:57] LABS: Puncture Site RRA
--- NOTE | 2017-11-23 08:03 | PRG ---
DATE OF SERVICE: 11/13/2017 This is 35 minutes critical care time. The patient remains intubated on mechanical ventilation. She is scheduled for a coiling procedure la ter today. She also has a broken left fibula and will need operative repair of that next week. Acco rding to the nursing staff, she still moves her right side without limitation. Does not move her lef t. PHYSICAL EXAMINATION: VITAL SIGNS: Temperature 99.9 with a T-max of 100.0, pulse is 114, blood pressure 134/59. 24 hour i ntake 2197, output 2670. HEENT: Significant periorbital edema, has a bandage around her head. NECK: No JVD. LUNGS: Clear to auscultation without wheezing. CARDIOVASCULAR: S1, S2, slightly tachycardic. ABDOMEN: Soft, obese, nontender, nondistended. EXTREMITIES: No clubbing, cyanosis. She has generalized edema throughout. LABORATORY DATA: White blood cell count 12.6, hematocrit 29.7, platelet count 410. ABG result is pe nding. Sodium 139, potassium 3.0, chloride 107, CO2 24, BUN 10, creatinine 0.5, glucose 142. ASSESSMENT: 1. Acute respiratory failure requiring mechanical ventilation. 2. Intracerebral bleed from aneurysm. 3. Fracture, left fibula. 4. Continued fluid overload state. PLAN: 1. I would like to give her one more dose of Lasix today. 2. Recheck potassium this afternoon. 3. Probably not weanable until all the operative procedures are finished and even after that I think trach and PEG may be a distinct possibility.
[2017-11-23] MEDS: Fosphenytoin Sodium 100 MG in Sodium Chloride 0.9% 50 ML IVPB SCH ×3 (08:29→23:39)
[2017-11-23] MEDS: Famotidine/PF 20 mg/2ml Vial SLOW IVP SCH ×2 (08:31→23:38)
[2017-11-23] MEDS: Potassium Chloride 40 MEQ in Premix Bag 1 BAG IVPB PRN ×2 (08:35→16:17)
--- NOTE | 2017-11-23 08:45 | RAD ---
PORTABLE AP CHEST: Date: 11/23/17 HISTORY: On ventilator. Follow-up evaluation. COMPARISON: 11/22/17. FINDINGS: Endotracheal tube and nasogastric tube remain in place. The patient is rotated to the right, accentua ting the mediastinal and hilar structures. There do appear to be slight increased interstitial densit ies at the right lung base which could be related to the patient positioning, but atelectasis or deve loping area of pneumonitis cannot be excluded. The lungs otherwise appear clear. Left subclavian cent ral venous catheter is stable in position. IMPRESSION: Suboptimal examination due to patient rotation. Lines and tubes are stable in position. However, ther e is suggestion of mild increase in linear and interstitial densities in the right lung base which co uld be related to either atelectasis or developing infiltrate. Follow-up evaluation is recommended. POS: [facility]
[2017-11-23] MEDS ORDERED: Lidocaine 1% (PF) 30 ML VIAL ONE (10:49)
[2017-11-23] MEDS ORDERED: Heparin 10,000 UNITS/1 ML VIAL ONE (10:49)
--- NOTE | 2017-11-23 12:22 | PQF ---
CLINICAL DOCUMENTATION IMPROVEMENT CLARIFICATION FORM: ICD-10 Updated PLEASE DO AN ADDENDUM TO THE PROGRESS NOTE WITH ANY DOCUMENTATION UPDATES OR ADDITIONS AND CARRY THROUGH TO DC SUMMARY. THANK YOU. DATE: 11/23/17; 11/26/17; 11/27/17 ATTN: Dr. Shoemaker Please exercise your independent, professional judgment in responding to the clarification form. Clinical indicators are provided on the bottom of this form for your review Please check appropriate box(s): [ ] Acute pulmonary edema. [ x ] Acute pulmonary edema without congestive heart failure. [ ] Other diagnosis [ ] Unable to determine In addition, please specify: Present on Admission (POA): [ ] Yes [x ] No [ ] Unable to determine For continuity of documentation, please document condition throughout progress notes and discharge summary. Thank You. CLINICAL INDICATORS - SIGNS / SYMPTOMS / LABS PULMONOLOGY PN 11/22: FLUID OVERLOADED. PUT BACK ON INCREASED SUPPORT ON MECHANICAL VENTILATION DUE TO HYPOXEMIA THIS MORNING. I THINK THAT IS PROBABLY SECONDARY TO PULMONARY EDEMA. RISKS: H&P 11/20: HX OF HTN, ASTHMA. BMI 44.0 PULM. PN 11/23: ACUTE RESP. FAILURE REQUIRING MECHANICAL VENTILATION. INTRACEREBRAL BLEED FROM ANEURYSM. CONTINUE FLUID OVERLOAD STATE. TREATMENT: PULM. PN 11/22: STOP IV FLUIDS AND GIVE ONE DOSE OF LASIX. CPOE 11/23: LASIX 40 MG SLOW IVP NOW. Thank you, Tiffany (This form is maintained as a part of the permanent medical record) 2014 [employer]. All Rights Reserved Tiffany Torres RN, BSN [email or web address] Office: [phone] [facility]
[2017-11-23] MEDS ORDERED: Propofol 1,000 MG/100 ML VIAL IV ONE (12:41)
[2017-11-23] MEDS: fentaNYL Citrate/PF 2,000 MCG in Sodium Chloride 0.9% 60 ML IV SCH (13:34)
[2017-11-23] MEDS: Insulin Glargine 10 UNITS in Pre-Filled Syringe 1 EACH SC SCH ×2 (13:44→23:39)
[2017-11-23] MEDS ORDERED: PROPOFOL 200 MG/20 ML VIAL ONE (14:42)
[2017-11-23] MEDS ORDERED: Iopamidol 370 76% 100 ML VIAL ONE (15:14)
[2017-11-23 15:27] LABS: Potassium 3.4 mmol/L (3.5-5.1)
[2017-11-23] MEDS: Insulin Regular 300 UNITS/3 ML VIAL SC PRN (15:32)
[2017-11-24 03:57] LABS: #Eosinphils 0.2 thou/uL (0.0-0.7); #Lymphocytes 1.6 thou/uL (1.20-3.40); #Monocytes 0.6 thou/uL (0.11-0.59); #Neutrophils 7.8 thou/uL (1.40-6.50); %Basophils 0.1 % (0.0-1.0); %Eosinophils 1.8 % (0.0-10.0); %Lymphocytes 15.5 % (21.0-51.0); %Monocytes 6.2 % (0.0-10.0); %Neutrophils 76.4 % (42.0-75.0); Hemoglobin 9.7 g/dL (12.0-16.0); Mean Corpuscular HGB CONC 32.7 g/dL (32.0-36.0); Mean Corpuscular Hemoglobin 31.9 pg (27.0-31.0); Mean Corpuscular Volume 97.5 fL (78.0-98.0); Mean Platelet Volume 6.6 fL (7.4-10.4); Platelet Count 381 thou/uL (130-400); RBC Distribution Width 12.6 % (11.5-14.5); Red Blood Cell (RBC) Count 3.04 mill/uL (4.20-5.40); White Blood Cell (WBC) Count 10.2 thou/uL (4.8-10.8)
[2017-11-24 04:14] LABS: Anion Gap 10 mmol/L (10-20); BUN (Urea Nitrogen) 15 mg/dL (7.0-18.7); Calc. Creatinine Clearance 201 mL/min (70-130); Calcium 8.8 mg/dL (7.8-10.44); Carbon Dioxide 26 mmol/L (22-29); Chloride 111 mmol/L (98-107); Estimated GFR-MDRD Greater than 90; Glucose 134 mg/dL (70-105); Potassium 3.5 mmol/L (3.5-5.1); Sodium 143 mmol/L (136-145)
[2017-11-24] MEDS: Propofol 1,000 MG/100 ML VIAL IV PRN ×3 (05:50→18:52)
[2017-11-24 07:00] LABS: Actual Bicarbonate (HCO3a) 24.6 mEq/L (22-28); Base Excess (BEa) 1.1 mEq/L (-2.0 to +3.0); CO2 Tension 34.8 mmHg (35.0-45.0); Calcium, Ionized 1.13 mmol/L (1.12-1.30); Carboxyhemoglobin (COHb) 0.8 gm% (0.0-3.0); Hemoglobin (Hb) 9.8 g/dL (12.0-16.0); O2 Tension (PaO2) 106.6 mmHg (80.0-100.0); Potassium - ABG Lab 3.42 mmol/L (3.70-5.30); pH, Arterial 7.47 (7.35-7.45)
[2017-11-24] MEDS: niCARdipine HCl 50 MG in Sodium Chloride 0.9% 250 ML 230 ML IVPB SCH (07:00)
[2017-11-24 07:02] LABS: Puncture Site ALINE
[2017-11-24] MEDS: Famotidine/PF 20 mg/2ml Vial SLOW IVP SCH ×2 (09:18→20:13)
[2017-11-24] MEDS: Insulin Glargine 10 UNITS in Pre-Filled Syringe 1 EACH SC SCH (09:18)
[2017-11-24] MEDS: Amlodipine 5 MG TAB PO SCH (09:18)
[2017-11-24] MEDS: Fosphenytoin Sodium 100 MG in Sodium Chloride 0.9% 50 ML IVPB SCH ×3 (09:20→20:14)
--- NOTE | 2017-11-24 09:22 | PRG ---
DATE OF SERVICE: 11/24/2017 We are starting the fifth hospital day for Ms. Norwood, who is post-hemorrhage day #4. She had intrac erebral hemorrhage in the right hemisphere, thought to be from a vascular anomaly given her relativel y young age. Indeed, her angiogram showed an ICA bifurcation aneurysm. She has now had a craniectom y to decompress the pressure and an intravascular coiling of the aneurysm. The cavernous segment ICA aneurysm was noted as well, but was left untreated for now. Ms. Norwood was seen in the ICU. We stopped the propofol and waited about 10 minutes. She could foll ow commands quite easily on the right side. She understood our speech. She reacted appropriately. She is not moving the left side. Ms. Norwood's neurological examination is stable from yesterday. We will continue to keep her blood p ressure less than the 160 range. For now, she is needing sedation to tolerate the ventilatory suppor t. The family has already been consented to tracheostomy and gastrostomy, which will occur early nex t week. We will follow her over the weekend.
--- NOTE | 2017-11-24 10:05 | RAD ---
FRONTAL VIEW CHEST: COMPARISON: Previous day. INDICATION: Ventilated patient, intracranial hemorrhage, postsurgical patient, followup. FINDINGS: There is elevation of the right hemidiaphragm. Endotracheal tube is present with the tip at the thor acic inlet. Enteric catheter traverses the left abdomen, below the field of view. Left subclavian v enous catheter terminates at the SVC region. There is mild edema. Cardiac silhouette is prominent, accentuated by technique. IMPRESSION: 1. Supportive lines and tubes as above. 2. Evidence of edema. POS: [facility]
--- NOTE | 2017-11-24 13:50 | PRG ---
DATE OF SERVICE: 11/24/2017 SUBJECTIVE: Brigida Norwood remains intubated on the vent, sedated on Diprivan and fentanyl and pret ty much unresponsive. OBJECTIVE: VITAL SIGNS: Pulse is 68, blood pressure is 140/70, sats 95%, respiration 20. CHEST: Bilateral rhonchi. CARDIAC: Normal S1, S2, no gallops. ABDOMEN: . EXTREMITIES: No edema. LABORATORY DATA: White count 10,000, hemoglobin and hematocrit 9 and 29, platelet count 381. PO2 10 6, pCO2 34, rate of 8. Electrolytes are normal. IMAGING DATA: Chest x-ray is clear. IMPRESSION: 1. Status post intracerebral hemorrhage aneurysm. 2. Fractured femur. 3. Respiratory failure. PLAN: She is not weanable until overall neuro status improves. Plan to trach and PEG early next nicolas nelson. In the meantime, continue supportive care. We will follow. One-half hour critical care time.
[2017-11-24] MEDS: Labetalol HCl 100 MG/20 ML VIAL SLOW IVP PRN (17:55)
[2017-11-25] MEDS: niCARdipine HCl 50 MG in Sodium Chloride 0.9% 250 ML 230 ML IVPB SCH (00:19)
[2017-11-25] MEDS: Propofol 1,000 MG/100 ML VIAL IV PRN ×3 (01:13→15:53)
[2017-11-25] MEDS: Labetalol HCl 100 MG/20 ML VIAL SLOW IVP PRN (03:36)
[2017-11-25 04:57] LABS: #Eosinphils 0.3 thou/uL (0.0-0.7); #Lymphocytes 1.1 thou/uL (1.20-3.40); #Monocytes 0.7 thou/uL (0.11-0.59); #Neutrophils 8.1 thou/uL (1.40-6.50); %Basophils 0.1 % (0.0-1.0); %Eosinophils 2.7 % (0.0-10.0); %Lymphocytes 11.1 % (21.0-51.0); %Neutrophils 79.1 % (42.0-75.0); Hemoglobin 8.3 g/dL (12.0-16.0); Mean Corpuscular HGB CONC 32.6 g/dL (32.0-36.0); Mean Corpuscular Hemoglobin 31.9 pg (27.0-31.0); Mean Corpuscular Volume 97.8 fL (78.0-98.0); Mean Platelet Volume 6.4 fL (7.4-10.4); Platelet Count 388 thou/uL (130-400); RBC Distribution Width 12.6 % (11.5-14.5); White Blood Cell (WBC) Count 10.3 thou/uL (4.8-10.8)
[2017-11-25 05:09] LABS: Anion Gap 9 mmol/L (10-20); BUN (Urea Nitrogen) 15 mg/dL (7.0-18.7); Calc. Creatinine Clearance 221 mL/min (70-130); Calcium 8.5 mg/dL (7.8-10.44); Carbon Dioxide 28 mmol/L (22-29); Chloride 109 mmol/L (98-107); Estimated GFR-MDRD Greater than 90; Glucose 122 mg/dL (70-105); Potassium 3.6 mmol/L (3.5-5.1); Sodium 142 mmol/L (136-145)
[2017-11-25] MEDS: Famotidine/PF 20 mg/2ml Vial SLOW IVP SCH ×2 (08:35→21:14)
[2017-11-25] MEDS: Amlodipine 5 MG TAB PO SCH ×2 (08:35→21:14)
--- NOTE | 2017-11-25 09:05 | PRG ---
DATE OF SERVICE: 11/25/2017 I saw Brigida Norwood in our hospital ICU room this morning. We have turned off the propofol and giv en her about 5 minutes to wake up. She begins to become quite purposeful with the right upper extrem ity and moving her pillow and readjusting herself. The extremity is restrained so that in any deliri ous state she does not extubate herself. On examination, the right pupil is larger than the left and does not react related to the brainstem portion of her intracerebral hemorrhage, but she does follow commands quite well. The left is plegic and the right moves. Her sodium this morning is 142. Her white blood cell count is 10.3. Ms. Norwood has been consented for tracheostomy and gastrostomy. That will be accomplished later this coming week. This weekend, she has been neurologically stable.
[2017-11-25] MEDS: Insulin Glargine 10 UNITS in Pre-Filled Syringe 1 EACH SC SCH (09:43)
[2017-11-25] MEDS: Fosphenytoin Sodium 100 MG in Sodium Chloride 0.9% 50 ML IVPB SCH ×3 (09:45→21:14)
--- NOTE | 2017-11-25 10:17 | RAD ---
CHEST 1 VIEW: COMPARISON: 11/24/2017. HISTORY: Respiratory distress. Ventilated patient. FINDINGS: Redemonstration of endotracheal tube, nasogastric tube, and left-sided central venous catheter. Stab le cardiac silhouette. Lung volumes are diminished. Reticulonodular opacities are noted. No pneumo thorax. IMPRESSION: No significant interval change. POS: [facility]
--- NOTE | 2017-11-25 12:26 | PRG ---
DATE OF SERVICE: 11/25/2017 SUBJECTIVE: A 47-year-old obese female, status post intracerebral hemorrhage. She remains unrespons nancy. She is sedated. She is on a Cardene drip. PHYSICAL EXAMINATION VITAL SIGNS: Blood pressure 149/99, sats are 98%, pulse 90, afebrile. CHEST: Decreased breath sounds, no wheezing. CARDIAC: Normal S1 and S2, no gallops. ABDOMEN: Distended and soft. LABORATORY DATA: Her electrolytes are normal. White count 10,000, hemoglobin and hematocrit 8 and 2 5, platelet count 388. IMPRESSION: Status post intracerebral hemorrhage, secondary to an aneurysm bleed, fractured femur, r espiratory failure, hypertension, atelectatic changes on the x-ray. PLAN: She is unweanable. Due for trach and PEG. She is due for surgical correction of her femur. Blood pressure medicine is being adjusted. [id number]-[id number] critical care time.
[2017-11-26] MEDS: Propofol 1,000 MG/100 ML VIAL IV PRN ×5 (00:56→23:11)
[2017-11-26 04:42] LABS: #Eosinphils 0.1 thou/uL (0.0-0.7); #Lymphocytes 1.3 thou/uL (1.20-3.40); #Monocytes 0.6 thou/uL (0.11-0.59); #Neutrophils 7.1 thou/uL (1.40-6.50); %Basophils 0.2 % (0.0-1.0); %Eosinophils 1.5 % (0.0-10.0); %Lymphocytes 14.1 % (21.0-51.0); %Monocytes 6.1 % (0.0-10.0); %Neutrophils 78.2 % (42.0-75.0); Hemoglobin 8.1 g/dL (12.0-16.0); Mean Corpuscular HGB CONC 33.1 g/dL (32.0-36.0); Mean Corpuscular Hemoglobin 32.2 pg (27.0-31.0); Mean Corpuscular Volume 97.3 fL (78.0-98.0); Mean Platelet Volume 6.5 fL (7.4-10.4); Platelet Count 384 thou/uL (130-400); RBC Distribution Width 12.3 % (11.5-14.5); Red Blood Cell (RBC) Count 2.52 mill/uL (4.20-5.40)
[2017-11-26 04:53] LABS: Anion Gap 7 mmol/L (10-20); BUN (Urea Nitrogen) 14 mg/dL (7.0-18.7); Calc. Creatinine Clearance 204 mL/min (70-130); Calcium 8.4 mg/dL (7.8-10.44); Carbon Dioxide 29 mmol/L (22-29); Chloride 109 mmol/L (98-107); Estimated GFR-MDRD Greater than 90; Glucose 121 mg/dL (70-105); Potassium 3.3 mmol/L (3.5-5.1); Sodium 142 mmol/L (136-145)
[2017-11-26 08:00] LABS: Actual Bicarbonate (HCO3a) 26.7 mEq/L (22-28); Base Excess (BEa) 3.6 mEq/L (-2.0 to +3.0); CO2 Tension 34.2 mmHg (35.0-45.0); Calcium, Ionized 1.06 mmol/L (1.12-1.30); Carboxyhemoglobin (COHb) 0.9 gm% (0.0-3.0); Hemoglobin (Hb) 8.1 g/dL (12.0-16.0); O2 Tension (PaO2) 140.2 mmHg (80.0-100.0); Potassium - ABG Lab 3.19 mmol/L (3.70-5.30); pH, Arterial 7.51 (7.35-7.45)
--- NOTE | 2017-11-26 08:03 | PRG ---
DATE OF SERVICE: 11/26/2017 Thirty-five minutes critical care time. SUBJECTIVE: The patient remains intubated in mechanical ventilation. She is scheduled to go down fo r operative repair of a leg fracture later today. I cannot get her to follow commands, although she will move her right side spontaneously. PHYSICAL EXAMINATION: VITAL SIGNS: On exam, temperature is 99.0 with a T-max of 100.3, pulse 85, blood pressure 109/73. T otal intake for 24 hours 2362, output 1965. HEENT: She has edema around her right eye. Oropharynx, endotracheal tube in place, has lots of secr etions. NECK: No adenopathy or JVD. LUNGS: Coarse rhonchi. CARDIOVASCULAR: S1 and S2, regular. ABDOMEN: Obese, soft, nontender. EXTREMITIES: No edema. NEUROLOGICAL: She will spontaneously move her right side, hemiparetic on the left. Chest x-ray shows endotracheal tube in proper position. Lung enciso fairly clear bilaterally. LABORATORY DATA: PH 7.47, pCO2 of 34, pO2 of 106 on SIMV rate 8, tidal volume 500, PEEP 8, pressure support 10, FiO2 40%. White blood cell count 9, hematocrit 24.5, platelet count 384. Sodium 142, po tassium 3.3, chloride 109, CO2 of 29, BUN 14, creatinine 0.5, glucose 121. ASSESSMENT: 1. Status post aneurysmal bleed with large right-sided intracerebral hematoma. 2. Status post aneurysmal clipping. 3. Left fibular fracture. 4. Acute respiratory failure, requiring mechanical ventilation. 5. Hypokalemia. 6. Diabetes mellitus with controlled blood sugars, on Lantus insulin. PLAN: The patient will ultimately need tracheostomy and feeding tube. I need to speak with her branti ly, whom I have not seen during that hospitalization. She will continue mechanical ventilation in th e current setting up until that time, probably need to start her on scopolamine patch given the degre e of secretions.
[2017-11-26] MEDS: niCARdipine HCl 50 MG in Sodium Chloride 0.9% 250 ML 230 ML IVPB SCH ×2 (08:16→17:29)
[2017-11-26] MEDS: Famotidine/PF 20 mg/2ml Vial SLOW IVP SCH ×2 (09:05→21:20)
[2017-11-26] MEDS: Amlodipine 5 MG TAB PO SCH ×2 (09:05→21:21)
[2017-11-26] MEDS: Scopolamine 1.5 mg/72 hour Patch TD SCH (09:06)
[2017-11-26] MEDS: Fosphenytoin Sodium 100 MG in Sodium Chloride 0.9% 50 ML IVPB SCH ×3 (09:30→21:20)
--- NOTE | 2017-11-26 09:53 | RAD ---
CHEST 1 VIEW: Date: 11/26/17 HISTORY: Ventilated patient. COMPARISON: Radiograph prior day. FINDINGS: The patient is intubated with endotracheal tube tip at the level of the clavicles. Central venous cat heter tip mid SVC. Mild pulmonary venous congestion. The enteric tube tip is below diaphragm, though out of field of view. No pneumothorax. No acute osseo us abnormality. IMPRESSION: Similar exam. POS: [facility]
--- NOTE | 2017-11-26 11:06 | PRG ---
DATE OF SERVICE: 11/26/2017 Ms. Norwood remains in the ICU intubated and lightly sedated. She is now status post hemicraniectomy as well as status post endovascular coiling of a right MCA bifurcation region aneurysm. Her clinical course over the weekend has for the most part been uneventful. Per report off sedation, she does follow commands, although at times intermittently. She is scheduled to go down today for operative repair of ankle fracture. Dr. Shoemaker is also going to work with the family on moving towards PEG and trach, which she will almost certainly need. The p blessing from a neurosurgical perspective will be close observation with respect to vasospasm, hydrocephal us, and expansion of her hemorrhage.
[2017-11-26] MEDS: Potassium Chloride 40 MEQ in Premix Bag 1 BAG IVPB PRN (12:00)
[2017-11-26] MEDS: Insulin Glargine 10 UNITS in Pre-Filled Syringe 1 EACH SC SCH (17:33)
[2017-11-27] MEDS: niCARdipine HCl 50 MG in Sodium Chloride 0.9% 250 ML 230 ML IVPB SCH ×3 (00:51→21:29)
[2017-11-27] MEDS: Propofol 1,000 MG/100 ML VIAL IV PRN ×3 (02:57→20:27)
[2017-11-27 05:44] LABS: #Eosinphils 0.1 thou/uL (0.0-0.7); #Lymphocytes 1.3 thou/uL (1.20-3.40); #Monocytes 0.5 thou/uL (0.11-0.59); #Neutrophils 8.9 thou/uL (1.40-6.50); %Basophils 0.2 % (0.0-1.0); %Lymphocytes 11.7 % (21.0-51.0); %Monocytes 4.4 % (0.0-10.0); %Neutrophils 82.8 % (42.0-75.0); Hemoglobin 9.1 g/dL (12.0-16.0); Mean Corpuscular HGB CONC 32.6 g/dL (32.0-36.0); Mean Corpuscular Hemoglobin 31.6 pg (27.0-31.0); Mean Platelet Volume 6.6 fL (7.4-10.4); Platelet Count 443 thou/uL (130-400); RBC Distribution Width 12.2 % (11.5-14.5); Red Blood Cell (RBC) Count 2.87 mill/uL (4.20-5.40); White Blood Cell (WBC) Count 10.8 thou/uL (4.8-10.8)
[2017-11-27 05:56] LABS: Anion Gap 13 mmol/L (10-20); BUN (Urea Nitrogen) 12 mg/dL (7.0-18.7); Calc. Creatinine Clearance 204 mL/min (70-130); Calcium 8.7 mg/dL (7.8-10.44); Carbon Dioxide 24 mmol/L (22-29); Chloride 108 mmol/L (98-107); Estimated GFR-MDRD Greater than 90; Glucose 143 mg/dL (70-105); Potassium 3.3 mmol/L (3.5-5.1); Sodium 142 mmol/L (136-145)
[2017-11-27] MEDS: Potassium Chloride 40 MEQ in Premix Bag 1 BAG IVPB PRN (06:24)
[2017-11-27 07:05] LABS: Actual Bicarbonate (HCO3a) 25.4 mEq/L (22-28); Base Excess (BEa) 2.8 mEq/L (-2.0 to +3.0); CO2 Tension 31.8 mmHg (35.0-45.0); Calcium, Ionized 1.08 mmol/L (1.12-1.30); Carboxyhemoglobin (COHb) 0.7 gm% (0.0-3.0); Hemoglobin (Hb) 9.6 g/dL (12.0-16.0); Potassium - ABG Lab 3.69 mmol/L (3.70-5.30); pH, Arterial 7.52 (7.35-7.45)
[2017-11-27 07:07] LABS: O2 Tension (PaO2) 52.2 mmHg (80.0-100.0); Puncture Site A-LINE
--- NOTE | 2017-11-27 09:00 | PRG ---
DATE OF SERVICE: 11/27/2017 Forty-five minutes critical care time. I did have the opportunity to meet with the patient's daughter this morning at the bedside, explained the situation. She understands that the patient will need trach and PEG going forward and is agreea ble to proceed. PHYSICAL EXAMINATION: VITAL SIGNS: Today, the patient's temperature is 99.7 with a T-max of 100.4, pulse 96, blood pressur e 137/77. 24 hour intake 2763, output 330. HEENT: She has periorbital edema. NECK: No JVD. LUNGS: Clear. CARDIAC: S1 and S2 regular. ABDOMEN: Soft, obese, nontender. EXTREMITIES: No edema. Chest x-ray shows small pleural effusion on the left, otherwise lung enciso looked good. ET tube is in good position. LABORATORY DATA: PH 7.52, pCO2 of 32, pO2 52 on SIMV rate 12, rate 8, tidal volume 500, PEEP 5, pres sure support 10, FiO2 40%. White blood cell count 10.8, hematocrit 27.8, platelet count 443. Sodium 142, potassium 3.3, chloride 108, CO2 24, BUN 12, creatinine 0.5, glucose 143. ASSESSMENT: 1. Acute respiratory failure requiring mechanical ventilation - the respiratory failure is secondary to her neurologic status. 2. Status post aneurysmal bleed. 3. Left fibular fracture. 4. Hypokalemia. 5. Diabetes mellitus. PLAN: 1. Trach and PEG planned for later this week with Dr. Marie. 2. Discontinue the A-line. 3. Continue nicardipine drip for blood pressure control, consider adding a beta hever, so that we can get her off the nicardipine drip. 4. Updated family.
[2017-11-27] MEDS: Metoprolol Tartrate 25 MG TAB PER TUBE SCH ×2 (09:26→20:27)
[2017-11-27] MEDS: Amlodipine 5 MG TAB PO SCH ×2 (09:26→20:00)
[2017-11-27] MEDS: Famotidine/PF 20 mg/2ml Vial SLOW IVP SCH ×2 (09:26→20:27)
[2017-11-27] MEDS: Fosphenytoin Sodium 100 MG in Sodium Chloride 0.9% 50 ML IVPB SCH ×3 (09:27→20:27)
[2017-11-27] MEDS: Insulin Glargine 10 UNITS in Pre-Filled Syringe 1 EACH SC SCH (09:27)
--- NOTE | 2017-11-27 09:48 | RAD ---
PORTABLE CHEST: History: Dyspnea. CCU follow up. Comparison: 11-26-17 FINDINGS/IMPRESSION: ET tube and NG tube remain in place along with the central line. There is mild vascular engorgement. No focal infiltrate or consolidation. No significant interval change. POS: [facility]
[2017-11-27] MEDS ORDERED: Acetaminophen 1,000 MG in Premix Bag 1 BAG IVPB PRN (12:33)
[2017-11-27] MEDS: Piperacillin/Tazobactam 3.375 GM in Sodium Chloride 0.9% 100 ML IVPB SCH ×3 (12:45→22:59)
[2017-11-27] MEDS: Labetalol HCl 100 MG/20 ML VIAL SLOW IVP PRN (16:22)
[2017-11-28 04:47] LABS: #Eosinphils 0.2 thou/uL (0.0-0.7); #Lymphocytes 1.5 thou/uL (1.20-3.40); #Monocytes 0.6 thou/uL (0.11-0.59); #Neutrophils 8.4 thou/uL (1.40-6.50); %Basophils 0.2 % (0.0-1.0); %Lymphocytes 13.6 % (21.0-51.0); %Monocytes 5.9 % (0.0-10.0); %Neutrophils 78.3 % (42.0-75.0); Hemoglobin 8.6 g/dL (12.0-16.0); Mean Corpuscular HGB CONC 33.2 g/dL (32.0-36.0); Mean Corpuscular Hemoglobin 32.1 pg (27.0-31.0); Mean Corpuscular Volume 96.7 fL (78.0-98.0); Mean Platelet Volume 6.2 fL (7.4-10.4); Platelet Count 469 thou/uL (130-400); RBC Distribution Width 12.2 % (11.5-14.5); Red Blood Cell (RBC) Count 2.66 mill/uL (4.20-5.40); White Blood Cell (WBC) Count 10.7 thou/uL (4.8-10.8)
[2017-11-28 05:05] LABS: Anion Gap 12 mmol/L (10-20); BUN (Urea Nitrogen) 12 mg/dL (7.0-18.7); Calc. Creatinine Clearance 208 mL/min (70-130); Calcium 8.6 mg/dL (7.8-10.44); Carbon Dioxide 23 mmol/L (22-29); Chloride 110 mmol/L (98-107); Estimated GFR-MDRD Greater than 90; Glucose 115 mg/dL (70-105); Potassium 3.6 mmol/L (3.5-5.1); Sodium 141 mmol/L (136-145)
[2017-11-28] MEDS: Piperacillin/Tazobactam 3.375 GM in Sodium Chloride 0.9% 100 ML IVPB SCH ×3 (05:39→17:27)
--- NOTE | 2017-11-28 08:06 | PRG ---
DATE OF SERVICE: 11/28/2017 A 35 minutes critical care time. SUBJECTIVE: The patient remains on mechanical ventilation. There have been no acute changes overnig ht. PHYSICAL EXAMINATION: VITAL SIGNS: Temperature is 98.9, pulse 82, blood pressure 135/80, O2 sat 100%, currently on propofo l drip and nicardipine drip. HEENT: Unremarkable. NECK: Without a JVD. LUNGS: Clear. CARDIOVASCULAR: S1, S2 regular. ABDOMEN: Soft, obese, nontender. EXTREMITIES: No edema. NEUROLOGIC: She will not follow commands for me. LABORATORY DATA: White blood cell count 10.7, hematocrit 25.8, platelet count 469. ABG pending. So dium 141, potassium 3.6, chloride 110, CO2 of 23, BUN 12, creatinine 0.5, glucose 115. ASSESSMENT: 1. Acute respiratory failure requiring mechanical ventilation. 2. Status post aneurysmal bleed. 3. Left fibular fracture. 4. Hypokalemia. 5. Diabetes mellitus. PLAN: 1. The patient will need operative repair of the left fibular fracture, eventually. 2. Kole planned - spoke with family about this yesterday. 3. Continue nicardipine drip as long as vasospasm is under consideration. Probably will be able to stop that on Sunday. 4. We have added amlodipine and metoprolol and can undoubtedly increase the dose of metoprolol if ne eded.
[2017-11-28 08:22] LABS: Actual Bicarbonate (HCO3a) 24.2 mEq/L (22-28); Analyzer IN Cardio ER; Base Excess (BEa) 0.9 mEq/L (-2.0 to +3.0); CO2 Tension 33.1 mmHg (35.0-45.0); Calcium, Ionized 1.12 mmol/L (1.12-1.30); Carboxyhemoglobin (COHb) 0.3 gm% (0.0-3.0); Hemoglobin (Hb) 9.3 g/dL (12.0-16.0); O2 Tension (PaO2) 73.6 mmHg (80.0-100.0); Potassium - ABG Lab 3.64 mmol/L (3.70-5.30); pH, Arterial 7.48 (7.35-7.45)
[2017-11-28 08:24] LABS: Puncture Site RBA
[2017-11-28 08:25] LABS: ALV-art Gradient 170.225 (0-20)
[2017-11-28] MEDS: Amlodipine 5 MG TAB PO SCH ×2 (08:43→20:20)
[2017-11-28] MEDS: Famotidine/PF 20 mg/2ml Vial SLOW IVP SCH ×2 (08:43→20:20)
[2017-11-28] MEDS: Metoprolol Tartrate 25 MG TAB PER TUBE SCH ×2 (08:44→20:30)
[2017-11-28] MEDS: niCARdipine HCl 50 MG in Sodium Chloride 0.9% 250 ML 230 ML IVPB SCH (09:02)
--- NOTE | 2017-11-28 09:05 | RAD ---
AP VIEW CHEST: HISTORY: Ventilator-dependent patient. FINDINGS: AP view chest is obtained on 11/28/2017. Comparison is made to previous exam from 11/27/2017. AP view chest demonstrates nasogastric and endotracheal tubes to be in place. The left subclavian ce ntral line is in place. No evidence of acute intrathoracic masses or lesions seen. Mild pulmonary vascular congestion is see n. No evidence of effusions, pneumonia, or pneumothorax seen. IMPRESSION: Unremarkable AP view chest. Lines and tubes are in good position. POS: [facility]
[2017-11-28] MEDS: Fosphenytoin Sodium 100 MG in Sodium Chloride 0.9% 50 ML IVPB SCH ×3 (09:11→20:39)
[2017-11-28] MEDS ORDERED: CEFAZOLIN/Water 2 GM/20 ML SYRINGE SLOW IVP SCH (10:00)
[2017-11-28] MEDS: Insulin Glargine 10 UNITS in Pre-Filled Syringe 1 EACH SC SCH (11:20)
[2017-11-28] MEDS ORDERED: Propofol 1,000 MG/100 ML VIAL IV ONE (11:22)
[2017-11-28] MEDS: Propofol 1,000 MG/100 ML VIAL IV PRN ×2 (11:24→19:24)
[2017-11-28] MEDS ORDERED: Metoclopramide HCl 10 MG/2 ML VIAL ONE (14:16)
[2017-11-28] MEDS ORDERED: Ondansetron PF 4 MG/2 ML Vial ONE (14:16)
[2017-11-28] MEDS ORDERED: PROPOFOL 200 MG/20 ML VIAL ONE (14:16)
[2017-11-28] MEDS ORDERED: Neomycin-Polymyxin 1 ML AMP ONE (15:30)
[2017-11-28] MEDS ORDERED: Bupivacaine PF 0.5% 30 ML VIAL ONE (15:30)
[2017-11-28] MEDS ORDERED: Fentanyl 100 MCG/2 ML VIAL ONE ×2 (16:16→16:47)
[2017-11-28] MEDS ORDERED: Midazolam HCl 2 mg/2 ml Vial ONE ×2 (16:47→16:53)
[2017-11-28] MEDS ORDERED: Lidocaine 1% w/Epinephrine 1:100K 20 ML VIAL ONE (16:52)
[2017-11-28] MEDS ORDERED: Vecuronium 10 MG VIAL ONE (16:52)
[2017-11-28] MEDS ORDERED: Sterile Water 10 ML ONE (17:07)
[2017-11-28] MEDS: Fentanyl 100 MCG/2 ML VIAL ONE ×2 (17:35→17:50)
--- NOTE | 2017-11-28 18:42 | RAD ---
LEFT ANKLE THREE VIEWS: 11/28/17 HISTORY: 47-year-old female with history of ORIF left ankle. Placement of metal plate and screws stabilizing the distal fibula displaced fracture with improved po sition and alignment. The ankle mortise appears to have a normal alignment. IMPRESSION: Metal plate and screws stabilizing comminuted displaced distal fibular fracture with improvement in p osition and alignment of the ankle mortise. POS: [facility]
--- NOTE | 2017-11-28 21:15 | OP ---
DATE OF OPERATION: 11/28/2017 PREOPERATIVE DIAGNOSES: 1. Status post acute subarachnoid hemorrhage secondary to ruptured brain aneurysm. 2. Acute respiratory failure secondary to #1. POSTOPERATIVE DIAGNOSES: 1. Status post acute subarachnoid hemorrhage secondary to ruptured brain aneurysm. 2. Acute respiratory failure secondary to #1. PROCEDURES PERFORMED: 1. Percutaneous tracheostomy tube placement. 2. Percutaneous endoscopic gastrostomy tube placement. SURGEON: Sagar Marie D.O. ANESTHESIA: Deep sedation and local. INDICATIONS FOR PROCEDURE: This is a 47-year-old woman who suffered acute subarachnoid hemorrhage se condary to ruptured brain aneurysm. The patient is status post craniectomy. I was asked to place a tracheostomy tube for potential prolonged mechanical ventilator support. Percutaneous endoscopic gas trostomy tube placement is also warranted to facilitate the potential prolonged enteral nutritional s upplementation. DESCRIPTION OF PROCEDURE: Informed consent obtained from the patient's power of personal injury attorney. The patie nt is placed in supine position. Anterior neck is sterilely prepped and draped in usual fashion. Th e skin two fingerbreadths above the suprasternal notch were anesthetized with 1% lidocaine with epine phrine. A 1 cm vertical incision was made here using an 11 scalpel. I inserted an introducer needle through the incision, advanced through the anterior tracheal wall. Proper placement visualized by b ronchoscopy. Guidewire was advanced through the needle and placed in the distal tracheal lumen witho ut resistance. The needle was withdrawn over the guidewire. The anterior tracheal wall was then malissa rilely dilated over the guidewire. Finally, a size 8 tracheostomy tube with a dilator and introducer catheter advanced over the guidewire and placed in the distal tracheal lumen without resistance. Th e dilator, introducer catheter and guidewire were removed as a unit leaving the tracheostomy tube in place. Inner cannula was inserted and patient is connected to mechanical ventilator support via the newly placed tracheostomy tube. Once the cuff was inflated, good tidal volume is returned. The prev ious endotracheal tube was then withdrawn with the bronchoscope as a unit visualizing the tracheostom y site from above with good hemostasis. Once the endotracheal tube was removed, the bronchoscope was reintroduced through the newly placed tracheostomy tube and advanced to visualize the cecy. Multi ple copious secretions were evacuated. The scope was withdrawn, visualizing the tracheostomy site fr om below and no active bleeding present. The tracheostomy tube and secured to anterior neck using 0- silk suture at 2 points. Trach dressings and tie were then applied. The patient tolerated this proc edure without any apparent complication. We then turned attention to the abdomen which was widely st erilely prepped and draped in usual fashion. A mouth guard was put in place. Through this fiberopti c endoscope was introduced over the tongue and advanced into the oropharynx. The esophagus was then intubated by gentle passage. The endoscope was advanced with gentle insufflation, the gastric lumen is accessed. The stomach was insufflated as we advance the endoscope. The scope was advanced into t proximal duodenum finding no peptic ulcerative disease. The scope was withdrawn back into the gas tric lumen and transilluminating the left upper quadrant area chosen for the placement of a gastrosto my tube. Skin here was anesthetized with 1% lidocaine after the area was draped sterilely. An intro ducer needle was inserted through this incision, advanced into the gastric lumen. This was captured with an endosnare introducer through the endoscope. A guidewire was advanced through this needle and advanced into the gastric lumen. The needle was withdrawn gently and then the guidewire is captured with the snare. The guidewire and the endoscope were pulled out per oral. The guidewire was then connected to a 20-Croatian gastrostomy tube. The distal end of the guidewire wa s pulled out through the stab incision in the left upper quadrant, securing the gastrostomy tube to t abdominal wall at 3 cm using a bolster. The endoscope was again reintroduced into the gastric lum en, visualizing the mushroom end of the gastrostomy tube abutting the gastric wall. No active bleedi ng noted here. Finding no other pathology, stomach was desufflated. The endoscope was withdrawn vis ualizing intact esophageal mucosa. The gastrostomy tube was then fashioned to length. The patient t olerated this procedure without any apparent complication and remained hemodynamically stable followi ng completion of the procedure. Oxygen saturation remained 100% throughout the entire procedure.
[2017-11-28] MEDS: CEFAZOLIN/Water 2 GM/20 ML SYRINGE SLOW IVP SCH (22:16)
[2017-11-29] MEDS: Piperacillin/Tazobactam 3.375 GM in Sodium Chloride 0.9% 100 ML IVPB SCH ×4 (00:11→17:33)
--- NOTE | 2017-11-29 01:27 | OP ---
DATE OF SURGERY: 11/28/2017 PREOPERATIVE DIAGNOSIS: Left lateral malleolus fracture. POSTOPERATIVE DIAGNOSIS: Left lateral malleolus fracture. SURGICAL PROCEDURE: Open reduction and internal fixation of left lateral malleolus. ANESTHESIA: General. SURGEON: Frandy Spivey M.D. PRESS PULLER: Zan Worthington PA-C. TOURNIQUET TIME: 30 minutes at 300 mmHg. IMPLANTS: Synthes 6-hole 1/3 tubular plate. COMPLICATIONS: None. DRAINS: None. OUTCOME: Near anatomic alignment. SPECIMEN: None. INDICATIONS: Ms. Norwood is a 47-year-old lady who on the morning of 11/20/2017, collapsed in her amer[place] e and was found to be unresponsive. Upon arrival at [place], CT scan was performed that showed a large intraparenchymal hemorrhage of the right frontal and temporal lobes with midline shift of the b rain. Patient was intubated and brought to the Intensive Care Unit following a right hemicraniotomy with duraplasty. As part of the patient's workup, ankle x-ray was obtained because of swelling and t his revealed a lateral malleolus fracture with some displacement. Patient is now felt to be stable e nough to undergo an open reduction and internal fixation of the lateral malleolus without negatively impacting her neurologic status. As such, after discussion with family, we decided to proceed with t his surgery. PROCEDURE IN DETAIL: Patient was brought to the operating room and a timeout performed followed by g eneral anesthesia, as patient was already on a ventilator. Next, a sterile prep and drape was perfor med in the left lower extremity. An Esmarch bandage was used to exsanguinate the limb and tourniquet inflated to 300 mmHg. A vertical incision was made over the distal fibula after skin was sharply in cised, dissection was carried down bluntly to the underlying fibula fracture. The fracture hematoma was lavaged from the wound and using minimal subperiosteal dissection. The periosteum was freed from the fracture gap. Next, the fracture was reduced and held in place with bone tenaculum and then a 6 -hole 1/3 tubular plate was contoured to fit the lateral cortex of the distal fibula. This was held in place with 2 cancellous screws distally and 3 cortical screws proximally. At the completion of is, AP, mortise, and lateral x-ray of the ankle was obtained that showed anatomic alignment of the fr acture with more reduced mortise. At this point in time, the wound was irrigated with normal saline and then wound closure performed with 0-Vicryl deep, followed by 2-0 Vicryl and hetal for the skin. A Xeroform gauze, well padded, Webril, fiberglass splint was then applied to the ankle and patient was transferred back to the ICU in stable condition. There were no complications. She tolerated the surgical procedure well.
[2017-11-29] MEDS: Propofol 1,000 MG/100 ML VIAL IV PRN (04:34)
[2017-11-29 04:47] LABS: #Eosinphils 0.1 thou/uL (0.0-0.7); #Lymphocytes 1.3 thou/uL (1.20-3.40); #Monocytes 0.6 thou/uL (0.11-0.59); #Neutrophils 7.4 thou/uL (1.40-6.50); %Basophils 0.2 % (0.0-1.0); %Eosinophils 1.2 % (0.0-10.0); %Lymphocytes 13.4 % (21.0-51.0); %Monocytes 6.1 % (0.0-10.0); %Neutrophils 79.2 % (42.0-75.0); Hemoglobin 8.1 g/dL (12.0-16.0); Mean Corpuscular HGB CONC 32.5 g/dL (32.0-36.0); Mean Corpuscular Hemoglobin 31.3 pg (27.0-31.0); Mean Corpuscular Volume 96.4 fL (78.0-98.0); Mean Platelet Volume 6.4 fL (7.4-10.4); Platelet Count 492 thou/uL (130-400); RBC Distribution Width 12.1 % (11.5-14.5); Red Blood Cell (RBC) Count 2.59 mill/uL (4.20-5.40); White Blood Cell (WBC) Count 9.4 thou/uL (4.8-10.8)
[2017-11-29 04:49] LABS: Anion Gap 12 mmol/L (10-20); BUN (Urea Nitrogen) 14 mg/dL (7.0-18.7); Calc. Creatinine Clearance 187 mL/min (70-130); Calcium 8.3 mg/dL (7.8-10.44); Carbon Dioxide 24 mmol/L (22-29); Chloride 111 mmol/L (98-107); Estimated GFR-MDRD Greater than 90; Glucose 106 mg/dL (70-105); Potassium 3.8 mmol/L (3.5-5.1); Sodium 143 mmol/L (136-145)
[2017-11-29] MEDS: CEFAZOLIN/Water 2 GM/20 ML SYRINGE SLOW IVP SCH ×2 (06:33→15:04)
[2017-11-29 07:21] LABS: Actual Bicarbonate (HCO3a) 21.1 mEq/L (22-28); Base Excess (BEa) -1.2 mEq/L (-2.0 to +3.0); CO2 Tension 27.5 mmHg (35.0-45.0); Carboxyhemoglobin (COHb) 0.3 gm% (0.0-3.0); Hemoglobin (Hb) 10.3 g/dL (12.0-16.0); O2 Tension (PaO2) 73.4 mmHg (80.0-100.0)
[2017-11-29 07:23] LABS: ALV-art Gradient 177.425 (0-20); Puncture Site RRA
--- NOTE | 2017-11-29 08:23 | PRG ---
DATE OF SERVICE: 11/29/2017 Thirty-five minutes critical care time. The patient remains intubated on mechanical ventilation. Tracheostomy was put in yesterday by Dr. Inder marquez. Sedation has been discontinued this morning. Despite that, she is not waking up very well and does not follow commands for me. PHYSICAL EXAMINATION: VITAL SIGNS: Temperature 99.5 with a T-max of 100.0, pulse 82, blood pressure 122/78. 24 hour intak e 220, output 2765. HEENT: Reduced periorbital edema. NECK: No adenopathy or JVD. CARDIAC: S1, S2 regular. LUNGS: Fairly clear. ABDOMEN: Soft, nontender. EXTREMITIES: No edema. Chest x-ray is grossly rotated, but lung enciso appear to be fairly clear. LABORATORY DATA: PH 7.50, pCO2 27, pO2 of 73 on SIMV rate 20, tidal volume 460, PEEP 8, pressure 10, FiO2 40%. White blood cell count 9.4, hematocrit 24.9, platelet count 492. Sodium 143, potassium 3 .8, chloride 111, CO2 24, BUN 14, creatinine 0.6, glucose 106. ASSESSMENT: 1. Acute respiratory failure requiring mechanical ventilation. 2. Status post intracranial aneurysmal bleed. 3. Left fibular fracture which has now been repaired. 4. Status post tracheostomy and feeding tube placement. 5. Diabetes mellitus. PLAN: 1. Decrease rate on vent. 2. Hold all sedation. 3. Discontinue nicardipine drip, manage blood pressure orally.
[2017-11-29] MEDS: Scopolamine 1.5 mg/72 hour Patch TD SCH (08:37)
[2017-11-29] MEDS: Metoprolol Tartrate 25 MG TAB PER TUBE SCH ×2 (08:38→21:08)
[2017-11-29] MEDS: Amlodipine 5 MG TAB PO SCH ×2 (08:38→21:08)
[2017-11-29] MEDS: Famotidine/PF 20 mg/2ml Vial SLOW IVP SCH ×2 (08:39→21:07)
[2017-11-29] MEDS: Insulin Glargine 10 UNITS in Pre-Filled Syringe 1 EACH SC SCH (09:28)
[2017-11-29] MEDS: Fosphenytoin Sodium 100 MG in Sodium Chloride 0.9% 50 ML IVPB SCH ×3 (09:55→21:08)
--- NOTE | 2017-11-29 10:07 | RAD ---
PORTABLE CHEST: HISTORY: Respiratory distress. COMPARISON: Prior day's exam. FINDINGS: The patient is moderately rotated to the right on this examination. It makes assessment very difficu lt. Heart size is difficult to assess due to rotation. There is increased density in the right base , raising the possibility of atelectatic change, possibly related to mucus plugging, again difficult to assess due to the rotation. The right hemidiaphragm is elevated. It appears more elevated on the prior exam. Subsegmental atelectatic change is seen in the left base. Tracheostomy tube remains in place. IMPRESSION: Suboptimal examination, as the patient is very rotated. Parenchymal changes in the right base sugges t the possibility of some right lower lobe atelectasis, possibly related to mucus plugging. A repeat chest film would be recommended. POS: [facility]
--- NOTE | 2017-11-29 22:37 | PRG ---
DATE OF SERVICE: 11/29/2017 Mr. Norwood is now postop day #8 following right hemicraniectomy. She is now day #1, status post PEG and trach with Dr. Marie and left ankle fracture fixation. She is sedated and on ventilation, but st ill follows commands. She has in the right upper and right lower extremity with numbness in the left upper or lower extremity . We will continue to follow.
[2017-11-30] MEDS: Piperacillin/Tazobactam 3.375 GM in Sodium Chloride 0.9% 100 ML IVPB SCH ×2 (00:17→05:24)
[2017-11-30 05:30] LABS: #Eosinphils 0.1 thou/uL (0.0-0.7); #Lymphocytes 1.4 thou/uL (1.20-3.40); #Monocytes 0.5 thou/uL (0.11-0.59); #Neutrophils 7.4 thou/uL (1.40-6.50); %Basophils 0.1 % (0.0-1.0); %Eosinophils 1.1 % (0.0-10.0); %Lymphocytes 15.2 % (21.0-51.0); %Monocytes 5.3 % (0.0-10.0); %Neutrophils 78.3 % (42.0-75.0); Hemoglobin 8.1 g/dL (12.0-16.0); Mean Corpuscular HGB CONC 32.7 g/dL (32.0-36.0); Mean Corpuscular Hemoglobin 31.3 pg (27.0-31.0); Mean Corpuscular Volume 95.8 fL (78.0-98.0); Mean Platelet Volume 6.1 fL (7.4-10.4); Platelet Count 524 thou/uL (130-400); RBC Distribution Width 12.1 % (11.5-14.5); Red Blood Cell (RBC) Count 2.58 mill/uL (4.20-5.40); White Blood Cell (WBC) Count 9.4 thou/uL (4.8-10.8)
[2017-11-30 05:57] LABS: Anion Gap 12 mmol/L (10-20); BUN (Urea Nitrogen) 15 mg/dL (7.0-18.7); Calc. Creatinine Clearance 200 mL/min (70-130); Calcium 8.4 mg/dL (7.8-10.44); Carbon Dioxide 24 mmol/L (22-29); Chloride 110 mmol/L (98-107); Estimated GFR-MDRD Greater than 90; Glucose 122 mg/dL (70-105); Potassium 3.4 mmol/L (3.5-5.1); Sodium 143 mmol/L (136-145)
[2017-11-30 07:19] LABS: Actual Bicarbonate (HCO3a) 24.2 mEq/L (22-28); Base Excess (BEa) 1.1 mEq/L (-2.0 to +3.0); CO2 Tension 32.3 mmHg (35.0-45.0); Carboxyhemoglobin (COHb) 0.9 gm% (0.0-3.0); Hemoglobin (Hb) 8.5 g/dL (12.0-16.0); O2 Tension (PaO2) 114.5 mmHg (80.0-100.0); pH, Arterial 7.49 (7.35-7.45)
[2017-11-30 07:23] LABS: ALV-art Gradient 130.325 (0-20); Puncture Site RRA
--- NOTE | 2017-11-30 08:07 | PRG ---
DATE OF SERVICE: 11/30/2017 Thirty-five minutes critical care time. The patient remains on mechanical ventilation through tracheostomy tube. This morning I can get her to wake up and follow commands with the right side which I have not been able to do the last several days. PHYSICAL EXAMINATION: VITAL SIGNS: Temperature is 99.2, pulse 70, blood pressure 132/75, O2 saturation 100%, intake for 24 hours 2824, output 1493. HEENT: Some mild periorbital edema. Her pupils are reactive. Sclerae anicteric. Oropharynx clear. NECK: Trach in good position, no bleeding. CARDIOVASCULAR: S1, S2 regular. LUNGS: Clear. ABDOMEN: Soft, nontender. EXTREMITIES: Trace edema. LABORATORY DATA: Sodium 143, potassium 3.4, chloride 110, CO2 24, BUN 15, creatinine 0.5, glucose 12 2. White blood cell count 9.4, hematocrit 24.7, platelet count 424. ABG; pH 7.49, pCO2 of 32, pO2 1 14. ASSESSMENT: 1. Acute respiratory failure requiring mechanical ventilation and tracheostomy placement for prolong ed ventilator time. 2. Status post intracranial aneurysmal bleed. 3. Left fibular fracture which has now been repaired. 4. Status post trach and feeding tube. 5. Diabetes mellitus. PLAN: 1. Diurese. 2. Trial on trach collar. 3. Continue blood pressure medication. 4. Discontinue central line, so she now has a midline in place. 5. Discontinue daily chest x-rays and ABGs.
--- NOTE | 2017-11-30 08:15 | RAD ---
PORTABLE CHEST: History: Ventilator and CCU follow up. Hypoxia. Comparison: 11-29-17 FINDINGS/IMPRESSION: Lungs remain well aerated. Linear atelectasis and/or infiltrate in the right lower lung is noted. Oth erwise no significant interval change is apparent. POS: [facility]
--- NOTE | 2017-11-30 08:55 | PRG ---
DATE OF SERVICE: 11/30/2017. SUBJECTIVE: Ms. Norwood is now 10 days status post admission for a large intracerebral hemorrhage and is now status post hemicraniectomy as well as status post endovascular repair of a right MCA bifurca tion region aneurysm. For the last couple of days, she has also undergone placement of PEG and trach and operative repair o f a left ankle fracture. Her incisions remained intact and without concern. She neurologically is for the most part unchanged . She is not currently on sedation. She intermittently follows commands with the right side and jaime es frequent spontaneous movements with the right side. I look for the family this morning and did not find them, but we will make an effort to touch base talya prasad this morning. The plan moving forward will be one of ongoing recovery and disposition planning.
[2017-11-30] MEDS: Metoprolol Tartrate 25 MG TAB PER TUBE SCH (09:32)
[2017-11-30] MEDS: Amlodipine 5 MG TAB PO SCH (09:32)
[2017-11-30] MEDS: Insulin Glargine 10 UNITS in Pre-Filled Syringe 1 EACH SC SCH (09:33)
[2017-11-30] MEDS: Famotidine/PF 20 mg/2ml Vial SLOW IVP SCH (09:33)
[2017-11-30] MEDS: Fosphenytoin Sodium 100 MG in Sodium Chloride 0.9% 50 ML IVPB SCH ×2 (09:50→15:58)
[2017-11-30 15:41] LABS: Potassium 3.6 mmol/L (3.5-5.1)
[2017-12-01] MEDS ORDERED: Metoprolol Tartrate 5 MG/5 ML VIAL ONE (00:38)
[2017-12-01] MEDS: Amlodipine 5 MG TAB PO SCH ×2 (00:43→09:00)
[2017-12-01] MEDS: Famotidine/PF 20 mg/2ml Vial SLOW IVP SCH ×3 (00:43→22:00)
[2017-12-01] MEDS: Metoprolol Tartrate 25 MG TAB PER TUBE SCH (00:43)
[2017-12-01] MEDS: Fosphenytoin Sodium 100 MG in Sodium Chloride 0.9% 50 ML IVPB SCH ×4 (00:44→22:00)
[2017-12-01 06:12] LABS: #Eosinphils 0.1 thou/uL (0.0-0.7); #Lymphocytes 1.3 thou/uL (1.20-3.40); #Monocytes 0.4 thou/uL (0.11-0.59); #Neutrophils 7.5 thou/uL (1.40-6.50); %Eosinophils 0.9 % (0.0-10.0); %Lymphocytes 13.8 % (21.0-51.0); %Monocytes 4.5 % (0.0-10.0); %Neutrophils 80.8 % (42.0-75.0); Hemoglobin 9.6 g/dL (12.0-16.0); Mean Corpuscular HGB CONC 32.8 g/dL (32.0-36.0); Mean Corpuscular Hemoglobin 31.1 pg (27.0-31.0); Mean Corpuscular Volume 94.8 fL (78.0-98.0); Mean Platelet Volume 6.2 fL (7.4-10.4); Platelet Count 622 thou/uL (130-400); RBC Distribution Width 12.1 % (11.5-14.5); Red Blood Cell (RBC) Count 3.09 mill/uL (4.20-5.40); White Blood Cell (WBC) Count 9.3 thou/uL (4.8-10.8)
[2017-12-01 06:31] LABS: Anion Gap 12 mmol/L (10-20); BUN (Urea Nitrogen) 12 mg/dL (7.0-18.7); Calc. Creatinine Clearance 210 mL/min (70-130); Calcium 8.6 mg/dL (7.8-10.44); Carbon Dioxide 24 mmol/L (22-29); Chloride 108 mmol/L (98-107); Estimated GFR-MDRD Greater than 90; Glucose 114 mg/dL (70-105); Potassium 3.6 mmol/L (3.5-5.1); Sodium 140 mmol/L (136-145)
--- NOTE | 2017-12-01 07:47 | PRG ---
DATE OF SERVICE: 12/01/2017 Ms. Norwood, this morning, is resting in her bed. She has trach collar on and is no longer on the chantal tilator and is actually breathing, for the most part, well on her own for the first time this morning that I have seen her. She opens her eyes when spoken to or at least attempts to do so, particularly on the right. She still follows commands loosely on the right upper and right lower extremity. She is still hemiparetic on the left. Pupils are still the same with the left being 3 mm and reactive; right being non-reactive and fixed, dilated. From her skin flap that is still somewhat protuberant, but soft when palpated. Neurosurgery will continue to follow along. This will likely be a protracte d course of disposition planning and rehabilitation.
--- NOTE | 2017-12-01 08:21 | PRG ---
DATE OF SERVICE: 12/01/2017 SUBJECTIVE: The patient was successfully weaned from the ventilator yesterday. She is on trach devin ar. PHYSICAL EXAMINATION: VITAL SIGNS: Her temperature is 99.3, pulse 100, blood pressure 160/100. A 24-hour intake 1463, out put 1460. HEENT: Remarkable for periorbital edema. NECK: No adenopathy or JVD. LUNGS: Clear. CARDIAC: S1 and S2 regular. ABDOMEN: Soft, nontender. EXTREMITIES: No edema. NEUROLOGIC: She can move her right side without difficulty and to command. LABORATORY DATA: White blood cell count 9.3, hematocrit 29.3, platelet count 622. Sodium 140, potas sium 3.6, chloride 108, CO2 24, BUN 12, creatinine 0.5, glucose 114. ASSESSMENT: 1. Status post acute respiratory failure requiring mechanical ventilation and tracheostomy placement . 2. Status post trach and PEG tube placement. 3. Malignant hypertension. 4. Intracerebral bleed. PLAN: 1. I will go ahead and increase her Lopressor further given her continued elevated blood pressure. 2. Discontinue all sedation protocol. 3. Work on LTAC placement.
[2017-12-01] MEDS ORDERED: Metoprolol Tartrate 25 MG TAB PER TUBE SCH (09:00)
[2017-12-01] MEDS ORDERED: niCARdipine HCl 50 MG in Sodium Chloride 0.9% 250 ML 230 ML IVPB SCH (09:15)
[2017-12-01] MEDS ORDERED: niCARdipine 40MG In NaCl 40 MG/200 ML BAG IVPB SCH (09:15)
[2017-12-01] MEDS: Insulin Glargine 10 UNITS in Pre-Filled Syringe 1 EACH SC SCH (09:30)
[2017-12-01] MEDS ORDERED: Piperacillin/Tazobactam 3.375 GM in Sodium Chloride 0.9% 100 ML IVPB SCH ×2 (10:15→15:00)
--- NOTE | 2017-12-01 10:45 | RAD ---
SUPINE ABDOMEN: Date: 12/01/17 INDICATION: PEG tube evaluation. FINDINGS/IMPRESSION: PEG tube overlies the mid abdomen. There has been contrast injection and there is diffuse contrast op acification within what appears to be soft tissues of the abdominal wall. There is evidence of gas in the soft tissues of the abdominal wall. This would indicate that the PEG tube is no adequately posit ioned within the gastric lumen. CCU was notified of this finding at the time of this dictation. CODE CR. POS: [facility]
[2017-12-01] MEDS ORDERED: Bupivacaine HCl 0.5%/Epinephrine 1:200,000/PF 30 ml Vial ONE (10:54)
[2017-12-01] MEDS ORDERED: Midazolam HCl 5 mg/5 ml Vial ONE (11:14)
[2017-12-01] MEDS ORDERED: Midazolam HCl 2 mg/2 ml Vial ONE (11:19)
--- NOTE | 2017-12-01 11:43 | HP ---
DATE OF ADMISSION: 11/20/2017 Brigida Norwood is a 47-year-old female, admitted 11/20/2017, after she presented with a hemorrhagic stroke. She was treated by Dr. Trae Jeong. The patient lost consciousness at home, brought to ER, a nd found to have a right mid brain intracranial bleed with midline shift, undergoing hemoclip craniec mirian. She postoperatively was managed on the ventilator, followed by Dr. Garcia Shoemaker. PAST MEDICAL HISTORY: GERD, hypertension, asthma. PAST SURGICAL HISTORY: Cholecystectomy, past history of bipolar disorder, anxiety, depression, tobac co and alcohol none, had a history of poor compliance. ALLERGIES: CODEINE. This hospitalization, Dr. Marie, 11/28/2017, the patient underwent tracheostomy and PEG tube placemen t. Dr. Spivey did ORIF, left lateral malleolus, from her fall. The patient is very weak in all ex tremities as weaned from the ventilator, but was noted this morning to have her PEG tube dislodged. Tube feedings were stopped. Contrast was injected into the feeding tube and there seemed to be diffu se contrast bifurcation in the abdominal wall with gas in the soft tissues in the abdominal wall hal cating PEG tube dislodgement. There was no visualization of the stomach. The patient's respiratory rate was 40 and heart rate 119. White count, however, was 9.3, hemoglobin 9.6. Basic metabolic prof ile normal. PHYSICAL EXAMINATION: VITAL SIGNS: 4 feet 11, 119, 156/98. The patient is on the ventilator. LUNGS: Clear to auscultation. CARDIAC: Regular rate and rhythm, sinus tachycardia. ABDOMEN: Soft. PEG tube left upper quadrant. ASSESSMENT AND PLAN: PEG tube malfunction. PLAN: Laparoscopic evaluation and procedures indicated. Operative procedure findings discussed with family, who consent. Proceeded to the operating room for laparoscopic evaluation, washout, placemen t of a new PEG tube, possible closure of the old gastric defect.
--- NOTE | 2017-12-01 12:03 | EKG ---
Test Reason : STROKE Blood Pressure : / mmHG Vent. Rate : 060 BPM Atrial Rate : 060 BPM P-R Int : 110 ms QRS Dur : 078 ms QT Int : 432 ms P-R-T Axes : 033 047 042 degrees QTc Int : 432 ms Sinus rhythm with short VT Nonspecific ST abnormality Abnormal ECG Confirmed by ROXANNA ANTUNEZ MD ([id number]), editor news SIDRA MAKI ([id number]) on 12/01/2017 12:03:03 PM Referred By: Confirmed By:ROXANNA ANTUNEZ MD
[2017-12-01 13:34] LABS: Actual Bicarbonate (HCO3a) 21.3 mEq/L (22-28); Base Excess (BEa) -0.7 mEq/L (-2.0 to +3.0); CO2 Tension 26.9 mmHg (35.0-45.0); Carboxyhemoglobin (COHb) 0.7 gm% (0.0-3.0); Hemoglobin (Hb) 10.3 g/dL (12.0-16.0); O2 Tension (PaO2) 70.1 mmHg (80.0-100.0); pH, Arterial 7.52 (7.35-7.45)
[2017-12-01 13:39] LABS: ALV-art Gradient 110.175 (0-20); Puncture Site RRA
--- NOTE | 2017-12-01 13:42 | OP ---
PREOPERATIVE DIAGNOSIS: Dysfunctional gastrostomy tube, dislodged, lying in the abdominal wall. POSTOPERATIVE DIAGNOSIS: Dysfunctional gastrostomy tube, dislodged, lying in the abdominal wall with out intra-abdominal contamination. SURGEON: Dr. Caleb Robledo ANESTHESIA: General. PROCEDURE: Diagnostic laparoscopy, laparoscopic closure of gastric old PEG tube site. New percutane ous endoscopic gastrostomy tube, laparoscopic assisted. Opening of old PEG tube site noting absence of any infection or contamination noted. Wound packed open. PROCEDURE: The patient was taken to the operating room where under general anesthesia, abdomen and o ld PEG tube prepared with ChloraPrep, draped in routine fashion. Local anesthetic subcutaneous tissue about each port site. Infraumbilical incision made. Pneumoperitoneum to 15 mmHg obtained wi th a Veress needle, replacing it with a 5-port laparoscope inserted. Left lower quadrant incision ma de and a 5-port placed. Right lateral mid abdominal incision made and a 12-port placed and right lat eral subcostal incision made and a 5-port placed. Inspection of the abdominal cavity revealed absenc e of any tube feeding contamination. There was no inflammation. No free fluid. The old gastrostomy tube was in the subcutaneous tissues, but the stomach was still adherent to the abdominal wall. At this point, I then performed upper endoscopy insufflating the stomach and efforts were made to place the new PEG tube trocar through the old PEG tube skin site into the gastric lumen, visualized endosco pically, but we could not accomplish this. Thus, I regowned and gloves sterilely and returned to the laparoscopic abdominal site where a 45 mm blue load JODY stapler was used to close the old gastrostom y site, removing the small gastric remnant specimen and discarding it. Staple closure was hemostatic and secured. The stomach was reinsufflated with the endoscope and under laparoscopic visualization reducing pneumoperitoneum to 10 mmHg, a new PEG tube site was selected left lateral subcostal under d irect laparoscopic visualization. Trocar catheter introduced percutaneously enlarging the skin site sharply. Trocar placed into the gastric lumen, visualized endoscopically. I then returned to the up per endoscopy site where a snare was placed around the trocar catheter and J wire grasped inserted th rough the trocar catheter and brought through the mouth and connected to the gastrostomy tube, which was then lubricated and pulled back down through the esophagus, stomach, securing against the gastric lumen. I then returned to the operative site with new gloves and gowns and finished the PEG tube, t ailoring the feeding tube and applying the feeding device and the fixation device along with Mastisol and eventual 1-inch silk tape. Pneumoperitoneum reduced. Abdominal cavity was not washed out as th ere was no contamination. Trocar sites closed with interrupted subdermal 4-0 Monocryl and DermaGlue applied. The patient tolerated the procedure well.
[2017-12-01] MEDS ORDERED: Vecuronium 10 MG VIAL ONE (13:53)
[2017-12-02] MEDS: Acetaminophen 650 MG/20.3 ML UDCUP PER TUBE PRN ×4 (00:17→20:52)
--- NOTE | 2017-12-02 02:13 | PRG ---
DATE OF SERVICE: 12/01/2017 Ms. Norwood remains in the ICU. She is off sedation. She is status post PEG and trach. Her incision remains clean, dry, and intact with respect to her scalp wound. She did follow commands with the right UE. We will continue to allow her to recover from her injuries and work towards disposition planning. I was not able to find family today to update them. JUAN
[2017-12-02 03:47] LABS: #Lymphocytes 1.3 thou/uL (1.20-3.40); #Monocytes 0.3 thou/uL (0.11-0.59); %Basophils 0.4 % (0.0-1.0); %Lymphocytes 19.9 % (21.0-51.0); %Monocytes 4.3 % (0.0-10.0); %Neutrophils 75.3 % (42.0-75.0); Hemoglobin 9.6 g/dL (12.0-16.0); Mean Corpuscular Hemoglobin 31.6 pg (27.0-31.0); Mean Corpuscular Volume 95.7 fL (78.0-98.0); Mean Platelet Volume 6.3 fL (7.4-10.4); Platelet Count 539 thou/uL (130-400); RBC Distribution Width 12.6 % (11.5-14.5); Red Blood Cell (RBC) Count 3.05 mill/uL (4.20-5.40); White Blood Cell (WBC) Count 6.6 thou/uL (4.8-10.8)
[2017-12-02 04:08] LABS: Anion Gap 13 mmol/L (10-20); BUN (Urea Nitrogen) 16 mg/dL (7.0-18.7); Calc. Creatinine Clearance 0 mL/min (70-130); Carbon Dioxide 21 mmol/L (22-29); Chloride 111 mmol/L (98-107); Estimated GFR-MDRD 90; Glucose 137 mg/dL (70-105); Potassium 3.1 mmol/L (3.5-5.1); Sodium 142 mmol/L (136-145)
[2017-12-02] MEDS: Scopolamine 1.5 mg/72 hour Patch TD SCH (07:36)
[2017-12-02] MEDS: Insulin Glargine 10 UNITS in Pre-Filled Syringe 1 EACH SC SCH (08:19)
[2017-12-02] MEDS: Famotidine/PF 20 mg/2ml Vial SLOW IVP SCH ×2 (08:19→20:55)
--- NOTE | 2017-12-02 08:24 | PRG ---
DATE OF SERVICE: 12/02/2017 Thirty-five minutes critical care time. SUBJECTIVE: The patient went to the OR yesterday for treatment of a dislodged feeding tube. Of note , she spiked a fever yesterday to 103.3 and is currently at 100.0. She did not have contamination of her abdomen with tube feeds and the G-tube was revised by Dr. Robledo. PHYSICAL EXAMINATION: VITAL SIGNS: Currently, temperature 100.0, pulse 103, blood pressure 122/89, 24-hour intake 1521, ou tput 1890. HEENT: Unremarkable. NECK: No JVD. LUNGS: Clear anteriorly. CARDIOVASCULAR: S1, S2, slightly tachycardic. ABDOMEN: Soft, obese. EXTREMITIES: Trace edema throughout. X-RAY FINDINGS: The chest x-ray from yesterday showed no infiltrative changes. LABORATORY DATA: White blood cell count 6.6, hematocrit 29.2, platelet count 539. Sodium 142, potas sium 3.1, chloride 111, CO2 21, BUN 16, creatinine 0.7, glucose 137. ASSESSMENT: 1. Fever spike yesterday, which I think probably is related in some degree to the displaced G-tube a nd some peritonitis. 2. Acute respiratory failure requiring mechanical ventilation - she is probably to the point where s he can go back on trach collar. 3. Hypokalemia. 4. Status post aneurysmal bleeding in the head. PLAN: 1. Retry trach collar if tolerated. 2. Continue the IV antibiotics for the time being for presumed mild peritonitis.
[2017-12-02] MEDS: Fosphenytoin Sodium 100 MG in Sodium Chloride 0.9% 50 ML IVPB SCH ×3 (09:14→20:49)
[2017-12-02] MEDS: Piperacillin/Tazobactam 3.375 GM in Sodium Chloride 0.9% 100 ML IVPB SCH ×3 (09:14→20:53)
--- NOTE | 2017-12-02 11:04 | PRG ---
DATE OF SERVICE: 12/02/2017 Ms. Norwood, this morning, is stable from yesterday's examination, still following commands. She is b ack on a ventilator the PEG tube yesterday, and post-procedurally, she is on the vent. This wi ll likely again be weaned later today.
--- NOTE | 2017-12-02 11:13 | PRG ---
DATE OF SERVICE: 12/02/2017 Ms. Norwood remains in the ICU. Neurologically, she is, for the most part, unchanged with respect to yesterday at this time. She did undergo revision of her PEG tube yesterday. We are working towards appropriate disposition planning. JUAN
--- NOTE | 2017-12-02 21:02 | PRG ---
DATE OF SERVICE: 12/02/2017 SUBJECTIVE: Brigida Norwood is doing well. Today, she has tolerated her tube feedings. OBJECTIVE: VITAL SIGNS: Temperature 100.9 degrees, heart rate 95, blood pressure 112/72. LUNGS: Clear to auscultation. CARDIAC: Regular rate and rhythm without murmur or gallop. ABDOMEN: Soft, nontender. Laparoscopic trocar wounds well healed. Glue intact. A small opening wo und from old PEG tube site is healthy. There is no evidence of infection. Wound looks healthy. Blu ses to change daily wet-to-dry dressings. ASSESSMENT AND PLAN: Doing well after closure of old PEG tube site and placement of a new PEG tube a nd laparoscopic evaluation without evidence of any peritonitis or leakage. The patient is doing well . I will see as needed. Continue wound care. Please call if necessary.
[2017-12-03] MEDS: Acetaminophen 650 MG/20.3 ML UDCUP PER TUBE PRN ×2 (02:02→20:22)
[2017-12-03] MEDS: Piperacillin/Tazobactam 3.375 GM in Sodium Chloride 0.9% 100 ML IVPB SCH ×4 (02:02→20:19)
[2017-12-03] MEDS: Insulin Regular 300 UNITS/3 ML VIAL SC PRN ×2 (03:53→21:39)
[2017-12-03 04:19] LABS: Anion Gap 11 mmol/L (10-20); BUN (Urea Nitrogen) 16 mg/dL (7.0-18.7); Calc. Creatinine Clearance 195 mL/min (70-130); Calcium 7.9 mg/dL (7.8-10.44); Carbon Dioxide 21 mmol/L (22-29); Chloride 115 mmol/L (98-107); Estimated GFR-MDRD Greater than 90; Glucose 173 mg/dL (70-105); Potassium 3.2 mmol/L (3.5-5.1); Sodium 144 mmol/L (136-145)
[2017-12-03 04:21] LABS: Hemoglobin 7.4 g/dL (12.0-16.0); Mean Corpuscular HGB CONC 32.1 g/dL (32.0-36.0); Mean Corpuscular Hemoglobin 31.3 pg (27.0-31.0); Mean Corpuscular Volume 97.5 fL (78.0-98.0); Mean Platelet Volume 6.3 fL (7.4-10.4); Platelet Count 440 thou/uL (130-400); RBC Distribution Width 12.5 % (11.5-14.5); Red Blood Cell (RBC) Count 2.36 mill/uL (4.20-5.40); White Blood Cell (WBC) Count 6.1 thou/uL (4.8-10.8)
[2017-12-03 04:50] LABS: Band 31 % (5-11); Lymphocytes 10 % (21-51); MDiff Complete? YES; Monocytes 6 % (0-10); Neutrophil 53 % (42-75)
--- NOTE | 2017-12-03 08:09 | PRG ---
DATE OF SERVICE: 12/03/2017 Ms. Norwood remains in the CCU. She has been weaned from mechanical ventilation. PHYSICAL EXAMINATION: VITAL SIGNS: Temperature 97.9 with a T-max of 103.0 last night, pulse is 85, blood pressure 139/81. 24 hour intake 3710, output 1050. HEENT: Unremarkable. NECK: No adenopathy or JVD. Trach in good position. LUNGS: Clear. CARDIOVASCULAR: S1, S2 regular. ABDOMEN: Soft. EXTREMITIES: No edema. LABORATORY DATA: White blood cell count 6.1, hematocrit 23.0, platelet count 440. Sodium 144, potas sium 3.2, chloride 115, CO2 21, BUN 16, creatinine 0.6, glucose 173. ASSESSMENT: 1. Febrile illness which I think is probably for some mild peritonitis. 2. Status post aneurysmal bleed. 3. Central trach and PEG. PLAN: 1. Continue Zosyn for the time being. 2. Go ahead and reculture. 3. Pursue LTAC option.
[2017-12-03] MEDS: Fosphenytoin Sodium 100 MG in Sodium Chloride 0.9% 50 ML IVPB SCH ×3 (09:28→20:19)
[2017-12-03] MEDS: Insulin Glargine 10 UNITS in Pre-Filled Syringe 1 EACH SC SCH (09:28)
[2017-12-03] MEDS: Famotidine/PF 20 mg/2ml Vial SLOW IVP SCH ×2 (09:28→20:18)
[2017-12-03 09:39] VITALS: BP 149/80
[2017-12-04] MEDS: Piperacillin/Tazobactam 3.375 GM in Sodium Chloride 0.9% 100 ML IVPB SCH ×2 (02:11→09:07)
[2017-12-04 04:35] LABS: #Eosinphils 0.1 thou/uL (0.0-0.7); #Monocytes 0.3 thou/uL (0.11-0.59); #Neutrophils 6.2 thou/uL (1.40-6.50); %Basophils 0.2 % (0.0-1.0); %Eosinophils 1.2 % (0.0-10.0); %Lymphocytes 13.8 % (21.0-51.0); %Monocytes 3.3 % (0.0-10.0); %Neutrophils 81.6 % (42.0-75.0); Hemoglobin 7.6 g/dL (12.0-16.0); Mean Corpuscular HGB CONC 31.8 g/dL (32.0-36.0); Mean Corpuscular Volume 97.5 fL (78.0-98.0); Mean Platelet Volume 6.7 fL (7.4-10.4); Platelet Count 515 thou/uL (130-400); RBC Distribution Width 12.7 % (11.5-14.5); Red Blood Cell (RBC) Count 2.44 mill/uL (4.20-5.40); White Blood Cell (WBC) Count 7.6 thou/uL (4.8-10.8)
[2017-12-04 04:55] LABS: Anion Gap 13 mmol/L (10-20); BUN (Urea Nitrogen) 15 mg/dL (7.0-18.7); Calc. Creatinine Clearance 206 mL/min (70-130); Calcium 8.2 mg/dL (7.8-10.44); Carbon Dioxide 21 mmol/L (22-29); Chloride 114 mmol/L (98-107); Estimated GFR-MDRD Greater than 90; Glucose 118 mg/dL (70-105); Potassium 3.6 mmol/L (3.5-5.1); Sodium 144 mmol/L (136-145)
[2017-12-04] MEDS ORDERED: Furosemide 20 MG/2 ML VIAL IVP SCH (08:00)
--- NOTE | 2017-12-04 08:20 | PRG ---
DATE OF SERVICE: 12/04/2017 SUBJECTIVE: The patient remains in the CCU. She is scheduled for transfer to LTAC at any time. PHYSICAL EXAMINATION: VITAL SIGNS: Temperature 99.2 with T-max 100.3, pulse 87, blood pressure 108/55. 24 hour intake 402 1, output 1345, weight 233 pounds. HEENT: Unremarkable except for alopecia on the right and still has bony flap missing. Pupils react. Sclerae icteric. Oropharynx clear. Trach in good position. LUNGS: Clear anteriorly. CARDIOVASCULAR: S1 and S2 regular. ABDOMEN: Obese, soft, nontender. EXTREMITIES: Trace edema throughout. LABORATORY DATA: White blood cell count 7.6, hematocrit 23.7, platelet count 515. Sodium 144, potas sium 3.6, chloride 114, CO2 21, BUN 15, creatinine 0.5, glucose 118. ASSESSMENT: 1. Status post aneurysmal bleed. 2. Mild peritonitis which seems to be resolving. 3. Status post trach and PEG. 4. Mild fluid overload. PLAN: 1. Give 1 dose of diuretics. 2. Transfer to LTAC at any time from my standpoint.
[2017-12-04] MEDS: Famotidine/PF 20 mg/2ml Vial SLOW IVP SCH (09:06)
[2017-12-04] MEDS: Fosphenytoin Sodium 100 MG in Sodium Chloride 0.9% 50 ML IVPB SCH (09:12)
[2017-12-04] MEDS: Insulin Glargine 10 UNITS in Pre-Filled Syringe 1 EACH SC SCH (09:12)
--- NOTE | 2017-12-04 10:14 | PRG ---
DATE OF SERVICE: 12/04/2017 Ms. Norwood is now 2 weeks postop right hemicraniectomy, and at this point, has been accepted and appr dylan for LTAC transfer. I have signed all paperwork. A helmet has been received for transfer purpos es and out of bed activities, and she will hopefully be transferred today. Wellman are intact, and a t this time, she should be cleared to remove them; however, her skin flap is still rather taut, so I would prefer to leave them in maybe for another week in the LTAC and remove on their side. We will p blessing to follow up in 4-8 weeks in our clinic.
[2017-12-04 11:01] VITALS: BMI 45.6
[2017-12-04 11:20] VITALS: TEMP 98.7
[2017-12-04] MEDS: Acetaminophen 650 MG/20.3 ML UDCUP PER TUBE PRN (13:00)
--- NOTE | 2017-12-05 13:45 | DIS ---
DATE OF ADMISSION: 11/20/2017 DATE OF DISCHARGE: 12/04/2017 HOSPITAL COURSE: Ms. Norwood is a 47-year-old woman who was admitted to [facility] on 2017 and underwent emergent hemicraniectomy for a large intracerebral hemorrhage secondary to rupture d aneurysm. She later would undergo coiling and angiography with Dr. Jeong in the cathode ray tube assembler. Through out her hospital course, additional consultations were ordered for a trach and PEG tube placement by General Surgery as well as orthopedics for evaluation of left-sided comminuted ankle fracture and Pul monary and Critical Care for ventilator management. She ultimately was weaned from the ventilator af ter tracheostomy was placed. Case management worked with insurance to ultimately find placement in a n LTAC facility and she was discharged there on 12/04/2017 in stable condition with outpatient follow up planned at a month.
== END 2017-12-04 14:44 | DRG 3 ==
LOC: ERS 08:48 → SDC 10:17 → CCU 12:16
PROVIDERS: ADMIT Neurological Surgery; ATTEND Neurological Surgery
PROC: 00N00ZZ Release Brain, Open Approach (ICD-10-PCS; principal; 2017-11-20)
PROC: 00U20JZ Supplement Dura Mater with Synthetic Substitute, Open Approach (ICD-10-PCS; 2017-11-20)
PROC: 5A1955Z Respiratory Ventilation, Greater than 96 Consecutive Hours (ICD-10-PCS; 2017-11-20)
PROC: 0BH17EZ Insertion of Endotracheal Airway into Trachea, Via Natural or Artificial Opening (ICD-10-PCS; 2017-11-20)
PROC: 03LG3DZ Occlusion of Intracranial Artery with Intraluminal Device, Percutaneous Approach (ICD-10-PCS; 2017-11-23)
PROC: 0B113F4 Bypass Trachea to Cutaneous with Tracheostomy Device, Percutaneous Approach (ICD-10-PCS; 2017-11-28)
PROC: 0QSK04Z Reposition Left Fibula with Internal Fixation Device, Open Approach (ICD-10-PCS; 2017-11-28)
PROC: 0DH63UZ Insertion of Feeding Device into Stomach, Percutaneous Approach (ICD-10-PCS; 2017-11-28)
PROC: 0DQ64ZZ Repair Stomach, Percutaneous Endoscopic Approach (ICD-10-PCS; 2017-12-01)
PROC: 0DH64UZ Insertion of Feeding Device into Stomach, Percutaneous Endoscopic Approach (ICD-10-PCS; 2017-12-01)
DX: I60.11 Nontraumatic subarachnoid hemorrhage from right middle cerebral artery (principal); G93.5 Compression of brain; J96.01 Acute respiratory failure with hypoxia; J81.0 Acute pulmonary edema; K65.9 Peritonitis, unspecified; K94.23 Gastrostomy malfunction; G81.04 Flaccid hemiplegia affecting left nondominant side; I61.1 Nontraumatic intracerebral hemorrhage in hemisphere, cortical; R40.2432 Glasgow coma scale score 3-8, at arrival to emergency department; R29.740 NIHSS score 40; S82.62XA Displaced fracture of lateral malleolus of left fibula, initial encounter for closed fracture; E11.65 Type 2 diabetes mellitus with hyperglycemia; E87.6 Hypokalemia; I10 Essential (primary) hypertension; K21.9 Gastro-esophageal reflux disease without esophagitis; F31.9 Bipolar disorder, unspecified; J45.909 Unspecified asthma, uncomplicated; F41.8 Other specified anxiety disorders; Z91.09 Other allergy status, other than to drugs and biological substances; W19.XXXA Unspecified fall, initial encounter; Y83.3 Surgical operation with formation of external stoma as the cause of abnormal reaction of the patient, or of later complication, without mention of misadventure at the time of the procedure
CPT/HCPCS: 31500; 36415; 36416; 51702; 61624; 70450; 70496; 71045; 72125; 74018; 76001; 80048; 80053; 80185; 81003; 81025; 82550; 82553; 82805; 83930; 84484; 85025; 85610; 85730; 86850; 86900; 86901; 87040; 90471; 90686; 90732; 93005; 94002; 94003; 94640; 96365; 96374; 99292; A4216; C1713; C1769; C1887; G0008; G0009; G8978-GP-CN; G8979-GP-CL; G8979-GP-CM; G8987-GO-CN; G8988-GO-CL; J0131; J0360; J0670; J1644; J1815; J1940; J2001; J2150; J2250; J2270; J2405; J2543; J2704; J2765; J3010; J3480; J3490; J7050; J7799; Q2009; S0020; S0028

== ENCOUNTER 2017-12-25 17:18 | Inpatient (IN) | payer MEDICARE, MEDICAID ==
[2017-12-25] MEDS ORDERED: CEFAZOLIN 2 GM/50 ML BAG ONE (19:54)
[2017-12-25 20:10] LABS: #Eosinphils 0.3 thou/uL (0.0-0.7); #Lymphocytes 0.9 thou/uL (1.20-3.40); #Monocytes 0.4 thou/uL (0.11-0.59); %Basophils 0.5 % (0.0-1.0); %Eosinophils 5.3 % (0.0-10.0); %Monocytes 7.6 % (0.0-10.0); %Neutrophils 70.6 % (42.0-75.0); Hemoglobin 9.8 g/dL (12.0-16.0); Mean Corpuscular HGB CONC 31.8 g/dL (32.0-36.0); Mean Corpuscular Hemoglobin 29.6 pg (27.0-31.0); Mean Platelet Volume 6.9 fL (7.4-10.4); Platelet Count 360 thou/uL (130-400); RBC Distribution Width 15.1 % (11.5-14.5); Red Blood Cell (RBC) Count 3.32 mill/uL (4.20-5.40); White Blood Cell (WBC) Count 5.7 thou/uL (4.8-10.8)
--- NOTE | 2017-12-25 20:22 | CT ---
CT HEAD WITHOUT CONTRAST: 12/25/17 Multiple tomograms obtained through the head without IV enhancement. INDICATIONS: Increased swelling right side of head. Patient is post intracerebral hematoma and postoperative jacinto es to the right frontotemporal region with craniotomy defect and prosthetic flap placement. Comparison made to CT of 11/21/17 which revealed a large intraparenchymal hematoma in the right cereb ral hemisphere. Postoperative changes are present at that time. FINDINGS: Right cerebral hemisphere including portions of the right temporal and frontal lobe protrude through the craniotomy defect and push the prosthetic flap outward. There is a large area of low attenuation indicating a cystic area possibly representing the defect from the previously noted large hematoma. T here is some acute blood products along the posterior margin of this cystic abnormality. There is mid line shift to the right measured at 8 to 9 mm at the septum pellucidum. Low attenuation within the co rtex of the right frontal temporal bone indicate probable areas of insult or infarct. IMPRESSION: Frontal and temporal cortex protrudes through the craniotomy defect in the right cerebral hemisphere pushing the prosthetic plate outward. There is midline shift to the right as described above. There i s some acute blood product present along the posterior margin of a large cystic area probably represe nting the cavity from the previously noted large hematoma. MRI may be of benefit to assess areas of restricted diffusion within the right cerebral hemisphere. POS: [facility]
[2017-12-25] MEDS ORDERED: Lidocaine 1% w/Epinephrine 1:100K 20 ML VIAL ONE (20:27)
[2017-12-25] MEDS ORDERED: PROPOFOL 20 ML ONE (20:36)
[2017-12-25 20:38] LABS: ALT (SGPT) 19 U/L (8-55); AST (SGOT) 21 U/L (5-34); Albumin 3.3 g/dL (3.5-5.0); Alkaline Phosphatase 183 U/L (40-150); Anion Gap 12 mmol/L (10-20); BUN (Urea Nitrogen) 13 mg/dL (7.0-18.7); Bilirubin, Total 0.4 mg/dL (0.2-1.2); Calc. Creatinine Clearance 0 mL/min (70-130); Calcium 9.1 mg/dL (7.8-10.44); Carbon Dioxide 27 mmol/L (22-29); Chloride 100 mmol/L (98-107); Estimated GFR-MDRD Greater than 90; Globulin 4.1 g/dL (2.4-3.5); Glucose 102 mg/dL (70-105); Potassium 4.2 mmol/L (3.5-5.1); Protein, Total 7.4 g/dL (6.0-8.3); Sodium 135 mmol/L (136-145)
[2017-12-25] MEDS ORDERED: Bisacodyl 5 MG TAB PO PRN (21:55)
[2017-12-25] MEDS ORDERED: Labetalol HCl 100 MG/20 ML VIAL SLOW IVP PRN (22:05)
[2017-12-25] MEDS: Sodium Chloride 0.9% 1,000 ML IV SCH (22:40)
--- NOTE | 2017-12-26 01:04 | HP ---
Ravinder Mosqueda PA-C dictating for Acosta Tracey MD This is a 50-minute initial patient evaluation in which greater than 50% of the exam was spent counse ling and coordinating patient's care. The remainder of the exam was spent in review of patient's [facility] records and appropriate imaging studies. CHIEF COMPLAINT: Altered mental status with swelling at right craniectomy site. HISTORY OF PRESENT ILLNESS: Ms. Norwood is a 47-year-old female who presents to [facility] for the above complaints. She is a transfer from a long-term acute care facility in the [facility]. The family as well as multiple providers at the facility noted significant amount of swelling at the right hemicraniectomy site since Sunday of last week. They have also noticed a cognitive declin e and that on Sunday, the patient was able with some assistance suction herself, follow command s on the right arm and leg, and has able to even washed her face. She did not spontaneously open her eyes or even to command. They noted when they visited her today significant swelling at her incisio n site, although no drainage or surrounding erythema. A head CT was obtained at the facility and for report, there was noted to have a significant amount of our critical finding on the scan as well as "movement of bone flap." The patient was then transferred given the CT findings. Repeat head CT was done showing enlargement of the ventricles and a roughly 8 mm amount of midline shift with CSF and b rain material herniating through the craniotomy defect. It also shows that not a bone flap, as the p atient does not have a bone flap on the right given her recent hemicraniectomy, but rather movement o f the Silastic sheeting that was used intraoperatively to protect the dura. It should be noted that the patient underwent right decompressive hemicraniectomy with Dr. Jeong on 11/20/2017 with evacuati on of large right frontal and parietal lobe hemorrhage as well as a coiling of aneurysm and also unde rwent endovascular coiling of right MCA bifurcation region aneurysm on 11/24/2017. PHYSICAL EXAMINATION: The patient has a tracheostomy in place and is currently on 8 liters of oxygen . Her GCS currently is [id number], so essentially she has a GCS of . She at baseline and currently does not move the left upper and left lower extremities. She minimally withdraws to painful stimulu s in the right upper extremity. Her pupils are 7 mm on the right and minimally if any reactive and 5 -6 mm on the left and sluggishly reactive. She is drooling throughout the exam. Her right-sided scrap hooker niectomy scalp incision has scabbing and hetal closing the incision. The surrounding flap is extre bettye full and appears to have some tension on it; however, again there is no drainage from the incisi on. IMPRESSION DIAGNOSES: 1. Status post right-sided decompressive hemicraniectomy for right frontoparietal hemorrhage and sta tus post coiling of MCA aneurysm with Dr. Jeong on 11/20/2017 and 11/24/2017. 2. Decreased neurologic decline with significant hydrocephalus noted on CT scan. PLAN: I discussed the patient's case and imaging with Dr. Tracey. At this time, our plan is to plac e a left-sided EVD to help improve the patient's hydrocephalus. I have updated the patient's family, the risks and benefits of placement of EVD and given these risks and benefits would like to proceed with a planned procedure. They understand that there is a risk of catastrophic hemorrhage throughout the procedure, but despite these risks again would like to proceed with placement of left-sided EVD. Plan to do this at bedside. Emergency room has also been updated. The patient will be admitted to the ICU after the procedure with q.1 hour neuro checks. I would like her head of bed elevated at 30 degrees at all times. We do not plan for any repeat imaging at this time and we will continue to fo llow her neurologic exam. The EVD should be 0 at the level of the ear canal and set at 10 cm of wate r, open to drain and asked that we recorded the output every hour. She will also be on Ancef for pos t-procedure infection prophylaxis. Of updated, the patient's ICU nurse in this regard as well. We w ould like her systolic blood pressure to remain less than 150 and we will also consult Pulmonology/Cr itical Care to help manage patient's other medical conditions. Please call with any changes in patie nt's neurologic status; otherwise, we will proceed with placement of the EVD.
--- NOTE | 2017-12-26 01:37 | OP ---
Ravinder Mosqueda PA-C dictating for Dr. Acosta Tracey. PROVIDER: Ravinder Mosqueda PA-C. PREPROCEDURE DIAGNOSIS: Hydrocephalus, status post right-sided decompressive hemicraniecomy on 11/20/2017. POSTPROCEDURE DIAGNOSIS: Hydrocephalus, status post right-sided decompressive hemicraniecomy on 11/20/2017. PROCEDURE IN DETAIL: Given the patient's acute hydrocephalus, decision was made to place a left frontal extraventricular drain. Patient's family was apprised the risks and benefits of procedure and consent was obtained to proceed. Proper pause and identification of patient was completed prior to beginning of procedure. Patient's hair was clipped and Santa's point was identified and marked. The patient was then sterilely prepped and draped. Incision was made at Santa's point in the left frontal region. Twist shaft drill was then used to make an opening into the skull, the dura was opened. EVD catheter with stylette was advanced and good return of CSF was noted under moderate pressure. Drain catheter was then connected to [place] drainage system, leveled 0 at the ear canal and open at 10 cm of water open to drain. The incision was closed with hetal and the EVD was secured to the patient's scalp using Vicryl suture. Dressing was then placed. By the conclusion of the procedure, the patient was doing well and following commands on the right. MTDD
--- NOTE | 2017-12-26 03:32 | PRG ---
DATE OF SERVICE: 12/26/2017 Ravinder Mosqueda PA-C, dictating for Dr. Acosta Tracey. Ms. Norwood is examined roughly half an hour after left frontal EVD placement. She is now following c ommands on the right and will wiggle the fingers on the right as well as move the left leg and wiggle the toes on the right. She remains without movement in the left upper and left lower extremities. She attempts to open her eyes to command and is able to stick out her tongue to command. which makes her GCS of 10T. We will continue to follow along with the patient, otherwise she is neurologi brandi improved after EVD placement. It should also be noted that this exam was done at roughly 10:00 p.m. on 12/25/2017.
[2017-12-26] MEDS: CEFAZOLIN 2 GM/50 ML-DEXTROSE 2 GM in Premix Bag 1 BAG IVPB SCH (04:54)
[2017-12-26 05:22] LABS: #Eosinphils 0.2 thou/uL (0.0-0.7); #Lymphocytes 0.8 thou/uL (1.20-3.40); #Monocytes 0.4 thou/uL (0.11-0.59); #Neutrophils 4.1 thou/uL (1.40-6.50); %Basophils 0.4 % (0.0-1.0); %Monocytes 6.4 % (0.0-10.0); %Neutrophils 75.3 % (42.0-75.0); Hemoglobin 9.6 g/dL (12.0-16.0); Mean Corpuscular HGB CONC 32.4 g/dL (32.0-36.0); Mean Corpuscular Hemoglobin 30.5 pg (27.0-31.0); Mean Platelet Volume 7.5 fL (7.4-10.4); Platelet Count 353 thou/uL (130-400); RBC Distribution Width 15.1 % (11.5-14.5); Red Blood Cell (RBC) Count 3.15 mill/uL (4.20-5.40); White Blood Cell (WBC) Count 5.4 thou/uL (4.8-10.8)
[2017-12-26 05:43] LABS: Anion Gap 12 mmol/L (10-20); BUN (Urea Nitrogen) 13 mg/dL (7.0-18.7); Calc. Creatinine Clearance 179 mL/min (70-130); Calcium 8.9 mg/dL (7.8-10.44); Carbon Dioxide 25 mmol/L (22-29); Chloride 102 mmol/L (98-107); Estimated GFR-MDRD Greater than 90; Glucose 104 mg/dL (70-105); Potassium 4.1 mmol/L (3.5-5.1); Sodium 135 mmol/L (136-145)
[2017-12-26] MEDS ORDERED: Ondansetron PF 4 MG/2 ML Vial IVP PRN (11:07)
--- NOTE | 2017-12-26 11:54 | PRG ---
DATE OF SERVICE: 12/26/2017 Ms. Norwood represented last night with hydrocephalus and herniation of her right hemisphere out of he r bone defect. She also had neurological decline. An external ventricular drain was placed followin g discussion with my colleague, Ms. Mosqueda and we both reviewed the imaging and the patient's exam. She has improved this morning to following commands in the right foot. She even followed commands a nd stuck her tongue out last night. She prefers to keep her eyes closed. She has a right third nerv e palsy and weakly moves on the left side in a localizing fashion. She does have a diffuse urticaria l maculopapular rash in her upper extremities and trunk. We will discontinue the Ancef and try and s ee if one of the antiepileptics is playing a role such as phenytoin, which is likely an offender. I should note her EVD is working well. Her flap is softer. 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 She may need a shunt in the future following satisf actory reduction in her mass effect. Perhaps this can be done when the bone flap is placed on when Mark Jeong returns.
[2017-12-26] MEDS: Scopolamine 1.5 mg/72 hour Patch TOP SCH (12:13)
--- NOTE | 2017-12-26 12:28 | OP ---
DATE OF PROCEDURE: 12/25/2017 PREPROCEDURE DIAGNOSES: Hydrocephalus with history of aneurysm rupture, craniectomy and aneurysm coi ling, neurologic decline. POSTPROCEDURE DIAGNOSES: Hydrocephalus with history of aneurysm rupture, craniectomy and aneurysm co iling, neurologic decline. PROCEDURE: 1. Placement of left-sided external ventricular drain. 2. Modifier 57 should be added to this surgery. The decision to operate was made on the day we saw the patient. DESCRIPTION OF PROCEDURE: After informed consent and the emergent nature conveyed to the patient's f amily, the left frontal region was prepared over Santa's point. This region was sterilely cleansed, prepared, and draped. Incision was made, rod hole fashion. Dura opened and a drain was placed wit h return of moderate pressure, bloody CSF. This was connected to the EVD open at 10 cm of water. Th e patient began to improve neurologically. This EVD was secured and the wound closed.
[2017-12-26] MEDS: diphenhydrAMINE 25 MG in Sodium Chloride 0.9% 50 ML IVPB PRN ×2 (13:36→21:11)
--- NOTE | 2017-12-26 13:59 | CON ---
DATE OF CONSULTATION: 12/26/2017 ATTENDING PHYSICIAN: Acosta Tracey M.D. REASON FOR ADMISSION: Swelling at the right craniectomy site. REASON FOR CONSULTATION: Generalized rash. HISTORY OF PRESENT ILLNESS: Ms. Norwood is a pleasant 47-year-old female that has a history of hypert ension as well as a recent ruptured cerebral aneurysm. She is status post coil procedure. She was d ischarged to an outlying long-term care facility in [place]. There, she was doing fine until i t was noted that she had some swelling around the right craniectomy site and was brought back to the hospital for further evaluation. The patient was also noted to have a generalized rash as well on he r upper extremities as well as her torso. Unfortunately, she is nonverbal and unable to give any add itional input regarding her symptoms and our service has been consulted for the evaluation and manage ment of this rash. It was noted that she has been taken off Ancef and avoiding Dilantin as the poten tial culprit. Otherwise, no other information is available. REVIEW OF SYSTEMS: Unable to obtain a review of systems as the patient is nonverbal. PAST MEDICAL HISTORY: Significant for ruptured cerebral aneurysm, hypertension, bipolar disorder and gastroesophageal reflux disease. PAST SURGICAL HISTORY: She has had cerebral coiling as well as a cholecystectomy. ALLERGIES: CODEINE. SOCIAL HISTORY: This is unknown other than in some records, it was noted that she may have had a his tory of smoking. FAMILY HISTORY: Unknown. MEDICATIONS: Taken from her electronic records includes Zofran p.r.n., Lantus insulin 10 units subcu daily, venlafaxine 75 mg extended release per the tube daily, scopolamine 1.5 topical every 3 days, Protonix 40 mg daily, Singulair 10 mg per tube daily, Provigil 200 mg per tube daily, Zestril 5 mg da dena, Keppra 1000 mg per tube twice a day, Lamictal 200 mg per tube 3 times a day, Robinul 1 mg per tu be 3 times a day and Wellbutrin 100 mg per tube daily. PHYSICAL EXAMINATION: GENERAL: She is arousable. She currently does not follow commands to me; however, it was noted that she apparently had looked at her tongue in command to the neurosurgeon. She is well developed and w ell nourished. VITAL SIGNS: Blood pressure is 136/61, heart rate is 84, respiratory rate of 20. She is afebrile. HEENT: The right pupil is approximately 4-5 mm and sluggish. The left is slightly smaller at approx imately 2 mm and reactive. NECK: There was no adenopathy, no bruits. LUNGS: Clear to auscultation. There is no wheezing, no rales. CARDIOVASCULAR: She has a normal S1, S2. I did not appreciate an S3 or S4. No murmurs, clicks or r ubs. ABDOMEN: Obese. It is positive for bowel sounds. She appears to have no guarding. EXTREMITIES: She has got 1+ edema. NEUROLOGICAL: She moves all of her extremities; however, it is hard to tell. It does appear that ama merchant does have some purposeful movements, but is not currently following commands. SKIN AND INTEGUMENT: The patient has an erythematous rash, which is slightly raised on both upper ex tremities. Areas on the upper arm appear a bit angry and red as well as on the torso and on the back . There is no warmth, however, and no oozing. LABORATORY DATA: The sodium is 135, potassium 4.1, chloride is 102, CO2 is 25, BUN of 13, creatinine 0.61, glucose is 104. The white blood cell count is 5.4, hemoglobin 9.6, hematocrit is 29.6, platel et count was 353,000. ASSESSMENT AND PLAN: 1. Generalized rash. The etiology is unclear. This could be a drug eruption. However, some parts of the rash seem to be more intense on areas of close contact of the skin to either the bed or the go wn. Therefore, it is possible it could be a contact dermatitis as well. At this point, I agree with avoiding the usual culprits such as penicillin and cephalosporins type antibiotics as well as Dilant in for seizure prophylaxis, which you have done. We will need to avoid steroids given the increased intracranial pressure and in lieu of that, we will use a topical steroid cream and continue Benadryl and we will also have Atarax available per the PEG tube for itching. It is noted that there were no oral lesions noted on the mucous membranes. Therefore, I doubt this is a Callaway Kale like syndro me. 2. Hypertension. This is well controlled. The goal is to keep her systolic blood pressure below 15 0, which is currently where she is. Her home medications including lisinopril has been restarted and labetalol is ordered as needed. 3. Deep venous thrombosis prophylaxis with SCDs and we will be happy to follow along with you.
--- NOTE | 2017-12-26 14:23 | ULT ---
BILATERAL LOWER EXTREMITY VENOUS ULTRASOUND WITH DOPPLER: HISTORY: Impaired mobility. Recent surgery. COMPARISON: None. TECHNIQUE: Delgado scale, color flow, Doppler imaging, and spectral waveform analysis was performed of the left and right lower extremity venous systems. FINDINGS: Limited evaluation due to limited mobility of the patient. The majority of the right lower extremity vessels could not be augmented. With regard to the right lower extremity, there is compressibility of the common femoral vein, femoral vein, and popliteal vein. There is flow in the common femoral ve in, femoral vein, popliteal vein, greater saphenous vein, and profunda vein. There is also flow in t he posterior tibial veins. With regard to the left lower extremity, there is compressibility and presence of flow in the common femoral vein, femoral vein, and popliteal vein. There is flow in the greater saphenous vein and prof unda vein. Posterior tibial vein could not be assessed. IMPRESSION: Limited evaluation. No evidence of thrombus in the visualized left and right lower extremity deep ve nous system. POS: [facility]
[2017-12-26] MEDS: Hydrocortisone 1% Cream 1.5 GM Packet TOP SCH (14:28)
[2017-12-26] MEDS ORDERED: lamoTRIgine 100 MG TAB PER TUBE SCH (15:00)
[2017-12-26] MEDS: Glycopyrrolate 1 MG TAB PER TUBE SCH ×2 (15:24→21:09)
[2017-12-26] MEDS: Sodium Chloride 0.9% 1,000 ML IV SCH (17:33)
--- NOTE | 2017-12-26 19:52 | CON ---
DATE OF CONSULTATION: 12/26/2017 SERVICE: Pulmonary Medicine. REASON FOR CONSULTATION: ICU patient. HISTORY OF PRESENT ILLNESS: Patient is a 47-year-old female with past medical history significant for an aneurysmal bleed, which occurred last month. The patient was subsequently transitioned to an LTAC facility. By report, she was following some simple commands. She was essentially bedbound and could barely participate with Occupational Therapy or Physical Therapy. Since she went to the LTAC, her mentation started to slowly deteriorate. Ultimately, repeat CT scan of the head was performed demonstrating extensive hydrocephalus. Neurosurgery was called and an external ventricular drain was placed yesterday evening. Her mentation is perked up ever so slightly. She is not following any commands at this point. That being said, she has demonstrating purposeful activity in the bilateral upper and lower extremities. She was trached and pegged during her previous evaluation. There is no signs of sepsis currently. The patient certainly cannot provide any additional elements of this history. Nursing reports no overnight events otherwise. PAST MEDICAL HISTORY: 1. Hypertension. 2. Gastroesophageal reflux disease. 3. Bipolar disorder. 4. History of ruptured cerebral artery aneurysm. PAST SURGICAL HISTORY: 1. Cholecystectomy. 2. Right hemicraniectomy with duraplasty. 3. PEG tube placement. 4. Tracheostomy placement. 5. ORIF of lateral malleolus. 6. Diagnostic laparoscopy for identification of mouth positioned PEG tube with repositioning. 7. Left frontal extraventricular drain. SOCIAL HISTORY: Smoking is positive, otherwise unknown. FAMILY HISTORY: Noncontributory. ALLERGIES: CODEINE. MEDICATIONS: List of her inpatient medications were reviewed. No specific updates were made at this time. REVIEW OF SYSTEMS: General, head, ears, eyes, nose, throat, cardiovascular, respiratory, GI, , musculoskeletal, neurologic and skin is negative except as mentioned in the HPI. PHYSICAL EXAMINATION: VITAL SIGNS: Afebrile, pulse 75, blood pressure 136/81, respirations 19, saturation 100% on T-collar. GENERAL: The patient is awake. She is somnolent. HEENT: Normocephalic, atraumatic. Sclerae white, conjunctivae pink. Oral and nasal mucosa is moist without lesions. LUNGS: Decent air entry. Rhonchi are present, but clear with cough. There is no prolonged expiratory phase or wheezing appreciated. HEART: Normal rate, regular. ABDOMEN: Soft, nontender, nondistended. Bowel sounds are positive. MUSCULOSKELETAL: No cyanosis or clubbing. There is 1 to 2+ pitting in the bilateral upper and lower extremities. NEUROLOGIC: She does not follow any commands. That being said, she does have withdrawal from noxious stimuli in all 4 extremities. She is coughing. She is breathing comfortably. The left pupil is briskly responsive. The right pupil is sluggish to nonresponsive with light. Oculocephalic movements are intact. LABORATORY DATA: WBC 5.4, hemoglobin 9.6, platelets are 353,000. Basic metabolic profile, liver function studies are essentially unremarkable. Her alkaline phosphatase is minimally elevated at 183. IMAGIN. Ultrasound of the bilateral lower extremities demonstrates no evidence of DVT. 2. CT of the brain demonstrates extensive hydrocephalus with protrusion of the bone flap. ASSESSMENT: 1. Static encephalopathy. 2. Hydrocephalus s/p external ventricular drain, post operative day 1. 3. Recent aneurysm rupture with bone flap, status post craniectomy 1 month ago. 4. Rash. DISCUSSION AND PLAN: Supportive measures will be continued. Agree with modifying medications that could be giving us this rash. If the steroid cream does not work in 24-48 hours, consider a biopsy. My suspicion is that this is an eruption to one of the drugs. Antiepileptic drugs, and/or the beta lactam is our likely culprit. We will watch for signs of mucous membrane breakdown. If we see any, Callaway-Kale will be kept within our differential. At this point, however, the rash takes on the appearance of a simple drug eruption. 70 minutes have been devoted to this patient in various activities. I personally reviewed all imaging studies and laboratory data noted within this document. For fifty percent of this time, I was interacting with the patient at the bedside or coordinating care with the care team. For the remainder of the time I was immediately available to the patient in the hospital unit. JUAN
[2017-12-26] MEDS ORDERED: Modafinil 100 MG TAB PER TUBE SCH (21:00)
[2017-12-26] MEDS: levETIRAcetam 500 mg/5 ml Oral Solution PER TUBE SCH (21:09)
[2017-12-27 04:36] LABS: Phosphorus 3.9 mg/dL (2.3-4.7)
[2017-12-27 04:38] LABS: Anion Gap 12 mmol/L (10-20); BUN (Urea Nitrogen) 16 mg/dL (7.0-18.7); Calc. Creatinine Clearance 185 mL/min (70-130); Calcium 8.8 mg/dL (7.8-10.44); Carbon Dioxide 27 mmol/L (22-29); Chloride 103 mmol/L (98-107); Estimated GFR-MDRD Greater than 90; Glucose 123 mg/dL (70-105); Magnesium 1.8 mg/dL (1.6-2.6); Potassium 3.8 mmol/L (3.5-5.1); Sodium 138 mmol/L (136-145)
[2017-12-27] MEDS: diphenhydrAMINE 25 MG in Sodium Chloride 0.9% 50 ML IVPB PRN ×3 (07:45→20:25)
[2017-12-27] MEDS: Glycopyrrolate 1 MG TAB PER TUBE SCH ×3 (08:55→20:25)
[2017-12-27] MEDS: Pantoprazole 40 MG GRANULES PACKET PER TUBE SCH (08:55)
[2017-12-27] MEDS: Insulin Glargine 10 UNITS in Pre-Filled Syringe 1 EACH SC SCH (08:56)
[2017-12-27] MEDS: levETIRAcetam 500 mg/5 ml Oral Solution PER TUBE SCH ×2 (08:56→20:25)
[2017-12-27] MEDS: Lisinopril 5 MG TAB PO SCH (08:58)
[2017-12-27] MEDS ORDERED: Montelukast Sodium 10 mg Tablet PER TUBE SCH (09:00)
[2017-12-27] MEDS ORDERED: buPROPion HCl 100 MG TAB PER TUBE SCH (09:00)
[2017-12-27] MEDS: Hydrocortisone 1% Cream 1.5 GM Packet TOP SCH (09:11)
[2017-12-27] MEDS ORDERED: Dextrose 5% in Water 1,000 ML IV PRN (09:33)
[2017-12-27] MEDS ORDERED: Insulin Regular 300 UNITS/3 ML VIAL SC PRN (09:33)
[2017-12-27] MEDS ORDERED: Dextrose 50% Abboject 50 ML SYRINGE IVP PRN (09:33)
--- NOTE | 2017-12-27 11:30 | PRG ---
DATE OF SERVICE: 12/27/2017 SUBJECTIVE: She was transferred apparently from an LTAC to here with symptoms of change in mental st atus. She was found to have hydrocephalus. A was placed last night. Additionally, she has a problem with diffuse erythematous rash over the entire body. She was taking several different medications when she came from the LTAC. On reviewing her chart, mo st of the medications have been discontinued as of this morning to see what medication was causing th e rash getting no antibiotic. She remains encephalopathic. OBJECTIVE: VITAL SIGNS: Trach in place with a sat of 100% on trach collar, pulse 90, blood pressure 120/75, res pirations 16. CHEST: Decreased breath sounds without any wheezing. CARDIAC: Normal S1 and S2, no gallops. ABDOMEN: No masses. LABORATORY DATA: Blood sugar is 128. Electrolytes are normal. IMPRESSION: 1. Status post placement of left-sided external ventricular drain hydrocephalus from a previous aneu rysmal rupture. Status post craniotomy. 2. Tracheostomy. 3. Diabetes. 4. Obesity. 5. Diffuse rash. PLAN: Discontinue all medications except for Keppra. Blood sugar is controlled with Accu-Cheks. Start feeding, supportive care, 2 days of steroids. [id number] critical care time.
--- NOTE | 2017-12-27 11:56 | PRG ---
DATE OF SERVICE: 12/27/2017 Ms. Norwood is hospital day #2 for placement of an external ventricular drain for hydrocephalus. She continues to demonstrate neurological improvement. This morning, she does not follow commands. She does not move her right upper and lower extremity briskly and spontaneously indicating a localizing f ashion. Her EVD continues to be excellent in regards to its function. It remains open at 10 cm of w ater. Her flap is even softer and more flat than it was yesterday. We will continue her EVD at its current state and I will defer to Dr. Jeong when returns on Sunday regarding procession towards weani ng the drain management in patient care. Her rash is slightly worse today, although we have stopped her Ancef and Lamictal, which are 2 typical suspects and medication induced rashes. She is on Solu-M edrol along with Benadryl. We will continue to follow her closely. I should note ultrasound of the lower extremities is negative.
--- NOTE | 2017-12-27 13:39 | PDOC.PN ---
- Subjective Encounter Start Date: 12/27/17 Encounter Start Time: 13:35 Subjective: S/P craniotomy and S/P left sided drain, rash all over - Objective Resuscitation Status: Resuscitation Status FULL:Full Resuscitation MAR Reviewed: Yes Vital Signs & Weight: Vital Signs (12 hours) Temp Pulse Pulse Resp BP Pulse Ox Pulse Ox 12/27/17 12:00 99.1 F 12/27/17 10:25 106 H 26 H 100 12/27/17 08:58 104 H 12/27/17 08:31 91 124/75 100 12/27/17 08:00 99.8 F H 100 12/27/17 07:02 104 H 26 H 100 Weight Admit Weight 214 lb 8 oz Weight 214 lb 8 oz Most Recent Monitor Data Heart Rate from ECG 103 NIBP 133/80 NIBP BP-Mean 97 Respiration from ECG 19 SpO2 100 I&O: 12/26/17 12/27/17 12/28/17 06:59 06:59 06:59 Intake Total 379 2293 100 Output Total 758 1474 319 Balance -379 819 -219 Result Diagrams: 12/26/17 04:28 12/27/17 03:50 Additional Labs: Accuchecks 12/27/17 12/27/17 12/27/17 12:38 05:28 01:14 POC Glucose 134 H 128 H 129 H 12/26/17 17:52 POC Glucose 106 Phys Exam - Physical Examination S/P hemicraniotomy, now with a drain, Trach collar trach collar Respiratory: no wheezing, no rales Cardiovascular: RRR, no significant murmur, no rub, gallop, irregular Gastrointestinal: soft, non-tender, no distention, positive bowel sounds Musculoskeletal: edema present no response, not moving spontaneously Dx/Plan (1) ICH (intracerebral hemorrhage) Code(s): I61.9 - NONTRAUMATIC INTRACEREBRAL HEMORRHAGE, UNSPECIFIED Status: Acute Comment: S/ P craniotomy and drain placement (2) Status post craniectomy Code(s): Z98.890 - OTHER SPECIFIED POSTPROCEDURAL STATES Status: Acute (3) Contact dermatitis Code(s): L25.9 - UNSPECIFIED CONTACT DERMATITIS, UNSPECIFIED CAUSE Status: Acute Qualifiers: Contact dermatitis type: allergic Contact dermatitis trigger: other chemical product Qualified Code(s): L23.5 - Allergic contact dermatitis due to other chemical products Comment: Contact vs. drug related. stopped all meds except Keppra. Will avoid penicillins. Steriods - Plan cont current plan of care, DVT proph w/SCDs * .
[2017-12-27] MEDS: Sodium Chloride 0.9% 1,000 ML IV SCH (14:19)
[2017-12-27] MEDS: Hydrocortisone 1% Cream 30 GM TUBE TOP SCH (14:47)
[2017-12-27] MEDS: CEFAZOLIN 2 GM/50 ML-DEXTROSE 2 GM in Premix Bag 1 BAG IVPB SCH (20:50)
[2017-12-28] MEDS: diphenhydrAMINE 25 MG in Sodium Chloride 0.9% 50 ML IVPB PRN (04:26)
[2017-12-28 06:52] LABS: Anion Gap 12 mmol/L (10-20); BUN (Urea Nitrogen) 14 mg/dL (7.0-18.7); Calc. Creatinine Clearance 185 mL/min (70-130); Calcium 8.9 mg/dL (7.8-10.44); Carbon Dioxide 26 mmol/L (22-29); Chloride 104 mmol/L (98-107); Estimated GFR-MDRD Greater than 90; Glucose 113 mg/dL (70-105); Magnesium 2.1 mg/dL (1.6-2.6); Phosphorus 3.5 mg/dL (2.3-4.7); Potassium 4.1 mmol/L (3.5-5.1); Sodium 138 mmol/L (136-145)
[2017-12-28] MEDS: Glycopyrrolate 1 MG TAB PER TUBE SCH ×3 (09:41→21:40)
[2017-12-28] MEDS: Hydrocortisone 1% Cream 30 GM TUBE TOP SCH (09:42)
[2017-12-28] MEDS: levETIRAcetam 500 mg/5 ml Oral Solution PER TUBE SCH ×2 (09:42→21:41)
[2017-12-28] MEDS: Lisinopril 5 MG TAB PO SCH (09:43)
[2017-12-28] MEDS: Pantoprazole 40 MG GRANULES PACKET PER TUBE SCH (09:44)
[2017-12-28] MEDS: Insulin Glargine 10 UNITS in Pre-Filled Syringe 1 EACH SC SCH (09:44)
[2017-12-28] MEDS: Sodium Chloride 0.9% 1,000 ML IV SCH (11:21)
[2017-12-28] MEDS: Labetalol HCl 100 MG/20 ML VIAL SLOW IVP PRN (11:24)
[2017-12-28] MEDS: hydrOXYzine 25 MG TAB PER TUBE PRN ×2 (11:34→21:41)
--- NOTE | 2017-12-28 11:58 | PRG ---
DATE OF SERVICE: 12/28/2017 Ms. Norwood continues to demonstrate slow, but sustained improvement. She attempts to open her eyes t his morning and spontaneous moving her right upper and right lower extremity. She even holds left up per extremity up in the air when we move it. Overall, I am very pleased with how she is doing. She continues to have hetal in her right-sided wound. We will likely take this out sometime this weeke nd and if any areas demonstrate drainage, we will oversew that. Obviously, hydrocephalus is the reas on she is here. Thankfully, she is not demonstrating any evidence of salt wasting and her sodium rem ains stable. The biggest issue now is a progressive skin rash and we appreciate the excellent care o f our medical colleagues in this regard. They are working with antihistamines and steroid medication and we will continue her EVD open at 10 cm of water through the week, and I should note her CSF is c learing and the output seems to range in the 5-10 mL hourly range. Her flap is certainly much softer , but is certainly not sunken.
--- NOTE | 2017-12-28 13:43 | PDOC.PN ---
- Subjective Encounter Start Date: 12/28/17 Encounter Start Time: 11:00 Subjective: pt trached, family at bedside - Objective Resuscitation Status: Resuscitation Status FULL:Full Resuscitation Vital Signs & Weight: Vital Signs (12 hours) Temp Pulse Resp BP Pulse Ox 12/28/17 11:24 95 174/95 H 12/28/17 10:36 95 25 H 99 12/28/17 09:43 103 H 137/72 12/28/17 08:00 99.9 F H 12/28/17 06:29 99 12/28/17 06:28 107 H 32 H 99 12/28/17 03:00 98.7 F Weight Admit Weight 214 lb 8 oz Weight 214 lb 8 oz Most Recent Monitor Data Heart Rate from ECG 93 NIBP 133/73 NIBP BP-Mean 93 Respiration from ECG 26 SpO2 100 I&O: 12/27/17 12/28/17 12/29/17 06:59 06:59 06:59 Intake Total 2293 2786 60 Output Total 1474 1600 264 Balance 819 1186 -204 Result Diagrams: 12/26/17 04:28 12/28/17 06:10 Additional Labs: Accuchecks 12/28/17 12/28/17 12/27/17 11:00 03:33 21:13 POC Glucose 124 H 99 119 H 12/27/17 16:44 POC Glucose 106 Phys Exam - Physical Examination Neck: no nodes, no JVD, supple, full ROM Respiratory: no wheezing, no rales, no rhonchi, wheezing present, clear to auscultation bilateral Cardiovascular: RRR, no significant murmur, no rub, gallop, irregular Gastrointestinal: soft, non-tender, no distention, positive bowel sounds Deviation from normal: maculapapular rash all over Dx/Plan (1) Rash Code(s): R21 - RASH AND OTHER NONSPECIFIC SKIN ERUPTION Status: Acute (2) ICH (intracerebral hemorrhage) Code(s): I61.9 - NONTRAUMATIC INTRACEREBRAL HEMORRHAGE, UNSPECIFIED Status: Acute Comment: S/ P craniotomy and drain placement (3) Status post craniectomy Code(s): Z98.890 - OTHER SPECIFIED POSTPROCEDURAL STATES Status: Acute - Plan pt trached -: significant rash noted not sure if DRESS vs dermattitis -: vs abx reaction -: not sure why pt was on abx, consider skin biopsy * . Review of Systems - Review of Systems Other: unable to obtain - Medications/Allergies Allergies/Adverse Reactions: Allergies Allergy/AdvReac Type Severity Reaction Status Date / Time codeine Allergy Verified 12/25/17 23:29 Medications: Current Medications Acetaminophen (Tylenol) 650 mg PO Q4H PRN PRN Reason: Headache/Fever/Mild Pain (1-3) Albuterol/Ipratropium (Duoneb) 3 ml NEB QID-RT [facility] Last Admin: 12/28/17 10:36 Dose: 3 ml Bisacodyl (Dulcolax) 10 mg PO DAILYPRN PRN PRN Reason: Constipation Dextrose/Water (Dextrose 50%) 25 gm IVP PRN PRN PRN Reason: HYPOGLYCEMIA PROTOCOL Glucagon (Glucagon) 1 mg IM PRN PRN PRN Reason: HYPOGLYCEMIA PROTOCOL Glycopyrrolate (Robinul) 1 mg PER TUBE TID [facility] Last Admin: 12/28/17 09:41 Dose: 1 mg Hydrocortisone/Aloe (Hydrocortisone 1% Cream) 1 gm TOP DAILY [facility] Last Admin: 12/28/17 09:42 Dose: 1 applic Hydroxyzine HCl (Atarax) 50 mg PER TUBE QIDPRN PRN PRN Reason: Itching Last Admin: 12/28/17 11:34 Dose: 50 mg Sodium Chloride (Normal Saline 0.9%) 1,000 mls @ 50 mls/hr IV .Q20H [facility] Last Admin: 12/28/17 11:21 Dose: 1,000 mls Insulin Glargine 10 units/ (Miscellaneous Medication) 0.1 mls @ 0 mls/hr SC QAM [facility] Last Admin: 12/28/17 09:44 Dose: 0.1 mls Diphenhydramine HCl 25 mg/ (Sodium Chloride) 50.5 mls @ 150 mls/hr IVPB Q6H PRN PRN Reason: Rash/Topical Irritation Last Admin: 12/28/17 04:26 Dose: 50.5 mls Dextrose/Water (D5w) 1,000 mls @ 0 mls/hr IV INF PRN PRN Reason: HYPOGLYCEMIA PROTOCOL Insulin Human Regular (Humulin R) 0 units SC .MILD SLIDING PRN; Protocol PRN Reason: MILD SLIDING SCALE Labetalol HCl (Normodyne) 10 mg SLOW IVP Q6HR PRN PRN Reason: Blood Pressure Last Admin: 12/28/17 11:24 Dose: 2 ml Levetiracetam (Keppra Oral Solution) 1,000 mg PER TUBE BID [facility] Last Admin: 12/28/17 09:42 Dose: 1,000 mg Lisinopril (Zestril) 5 mg PO DAILY [facility] Last Admin: 12/28/17 09:43 Dose: 5 mg Methylprednisolone Sodium Succinate (Solu-Medrol) 40 mg IVP BID [facility] Stop: 12/29/17 09:01 Last Admin: 12/28/17 09:44 Dose: 40 mg Ondansetron HCl (Zofran) 4 mg IVP Q8H PRN PRN Reason: Nausea/Vomiting Pantoprazole Sodium (Protonix) 40 mg PER TUBE DAILY [facility] Last Admin: 12/28/17 09:44 Dose: 40 mg Scopolamine (Transderm Scop) 1.5 mg TOP Q3D [facility] Last Admin: 12/26/17 12:13 Dose: 1.5 mg Sodium Chloride (Flush - Normal Saline) 10 ml IVF PRN PRN PRN Reason: Saline Flush Sodium Chloride (Flush - Normal Saline) 10 ml IVF Q12HR [facility] Last Admin: 12/28/17 11:21 Dose: 10 ml Sodium Chloride (Flush - Normal Saline) 10 ml IVF PRN PRN PRN Reason: Saline Flush
[2017-12-28] MEDS: Acetaminophen 325 MG TAB PO PRN (14:20)
--- NOTE | 2017-12-28 15:24 | RAD ---
CHEST 1 VIEW: HISTORY: Fever. COMPARISON: Radiograph 11/30/2017. FINDINGS: Lungs are clear. No pneumothorax or effusion. Cardiac silhouette and mediastinal contours within no rmal limits. Tracheostomy tube tip is similar position. IMPRESSION: No acute intrathoracic abnormality. POS: [facility]
[2017-12-28 16:38] LABS: #Eosinphils 0.5 thou/uL (0.0-0.7); #Monocytes 0.4 thou/uL (0.11-0.59); #Neutrophils 6.1 thou/uL (1.40-6.50); %Basophils 0.3 % (0.0-1.0); %Eosinophils 6.6 % (0.0-10.0); %Lymphocytes 12.8 % (21.0-51.0); %Monocytes 4.5 % (0.0-10.0); %Neutrophils 75.8 % (42.0-75.0); Hemoglobin 8.7 g/dL (12.0-16.0); Mean Corpuscular HGB CONC 33.4 g/dL (32.0-36.0); Mean Corpuscular Hemoglobin 31.1 pg (27.0-31.0); Mean Corpuscular Volume 93.3 fL (78.0-98.0); Mean Platelet Volume 6.6 fL (7.4-10.4); Platelet Count 452 thou/uL (130-400); RBC Distribution Width 15.8 % (11.5-14.5); White Blood Cell (WBC) Count 8.1 thou/uL (4.8-10.8)
[2017-12-28 17:53] LABS: Bilirubin Negative (Negative); Blood, Urine Large (Negative); Clarity CLOUDY (Clear); Glucose, Urine (Dipstick) Negative (Negative); Leukocyte Large (Negative); Nitrite Positive (Negative); Protein, Urine (Dipstick) 30 mg/dL (Neg-Trace); Specific Gravity, Urine 1.033 (1.002-1.036)
[2017-12-28 17:56] LABS: Hyaline Casts/LPF 7-10 HYALINE CAST LPF (0-3 Hyaline); Pathc Cast-AUWi Flag 1.16 (0-2.49); RBC/HPF GREATER THAN 50-TNTC HPF (0-3); Squamous Epithelial 0-3 HPF (0-3)
--- NOTE | 2017-12-28 18:02 | PRG ---
DATE OF SERVICE: 12/28/2017 SUBJECTIVE: Ms. Norwood remains in the ICU. OBJECTIVE: CONSTITUTIONAL: She is in no respiratory distress. VITAL SIGNS: Heart rate is 97, respiratory rate is 23. She is on a trach collar, oximetry is in the high 90s. LUNGS: Clear. She is controlling her secretions. HEART: Regular rhythm. ABDOMEN: Soft and nontender. EXTREMITIES: Edematous. SKIN: She has a diffuse macular rash and feels this is worse than when she was admitted. LABORATORY DATA: White count is 5.4, hemoglobin 9.6, platelets 353,000 two days ago. There was no lab today other than electrolytes, which are normal. I reviewed medications at the LTAC. She looks like she was on Dilantin and Zosyn prior to admission. Her rash looks like a drug eruption. She did receive Ancef here before her external ventricular drain. I would wonder if she had developed a penicillin allergy or if this was a Dilantin reaction. Being told that, her erythema is worse, which would make me wonder if this would in part a reaction to the Ancef, combined with the penicillin reaction prior to admission. I would prefer the Atarax be used, it would likely be less sedating than using Benadryl. She is already on steroids. She has topical hydrocortisone cream. She is not on any antimicrobial therapy at this time. Her ventricular drain set at 10. We will continue to follow with the other physicians caring for her. I answered all of her questions to the best of my ability. JUAN
[2017-12-28 18:10] LABS: Bacteria/HPF 1+ HPF (None Seen); Crystals/HPF 1+ CA OXALATE HPF (Negative)
[2017-12-29 05:22] LABS: Phosphorus 3.6 mg/dL (2.3-4.7)
[2017-12-29 05:25] LABS: Anion Gap 13 mmol/L (10-20); BUN (Urea Nitrogen) 14 mg/dL (7.0-18.7); Calc. Creatinine Clearance 179 mL/min (70-130); Calcium 8.6 mg/dL (7.8-10.44); Carbon Dioxide 26 mmol/L (22-29); Chloride 102 mmol/L (98-107); Estimated GFR-MDRD Greater than 90; Glucose 115 mg/dL (70-105); Magnesium 1.8 mg/dL (1.6-2.6); Sodium 137 mmol/L (136-145)
[2017-12-29 05:35] LABS: Band 8 % (5-11); Eosinophils 4 % (0-10); Hemoglobin 8.7 g/dL (12.0-16.0); Lymphocytes 15 % (21-51); MDiff Complete? YES; Mean Corpuscular HGB CONC 32.5 g/dL (32.0-36.0); Mean Corpuscular Hemoglobin 30.3 pg (27.0-31.0); Mean Corpuscular Volume 93.1 fL (78.0-98.0); Mean Platelet Volume 6.4 fL (7.4-10.4); Monocytes 5 % (0-10); Neutrophil 68 % (42-75); PLT Morphology Comment Appears Increased; Platelet Count 486 thou/uL (130-400); Red Blood Cell (RBC) Count 2.88 mill/uL (4.20-5.40); White Blood Cell (WBC) Count 8.4 thou/uL (4.8-10.8)
[2017-12-29] MEDS: Sodium Chloride 0.9% 1,000 ML IV SCH (06:00)
[2017-12-29] MEDS: hydrOXYzine 25 MG TAB PER TUBE PRN ×3 (06:00→21:59)
[2017-12-29] MEDS: Pantoprazole 40 MG GRANULES PACKET PER TUBE SCH (07:57)
[2017-12-29] MEDS: Insulin Glargine 10 UNITS in Pre-Filled Syringe 1 EACH SC SCH (07:57)
[2017-12-29] MEDS: Lisinopril 5 MG TAB PO SCH (07:57)
[2017-12-29] MEDS: levETIRAcetam 500 mg/5 ml Oral Solution PER TUBE SCH ×2 (07:57→21:53)
[2017-12-29] MEDS: Glycopyrrolate 1 MG TAB PER TUBE SCH ×3 (07:58→21:59)
[2017-12-29] MEDS: Labetalol HCl 100 MG/20 ML VIAL SLOW IVP PRN ×2 (09:50→15:35)
[2017-12-29] MEDS: Scopolamine 1.5 mg/72 hour Patch TOP SCH (11:57)
[2017-12-29] MEDS: Acetaminophen 325 MG TAB PO PRN ×2 (11:57→23:48)
--- NOTE | 2017-12-29 12:08 | PRG ---
DATE OF SERVICE: 12/29/2017 SUBJECTIVE: Ms. Norwood neurologically is stable. Her flap is a bit correa. We will get a head CT. Her drain remains functional. Based on the head CT, I may consider decreasing her setting to open a t 5 cm of water, thus draining her a bit more aggressively. Her rash appears to be more confluent no w. The family is concerned about this, although I have assuaged their concerns letting them know farnaz t the main issue is the fact that she has a significant head pathology that will require continued IC U management.
--- NOTE | 2017-12-29 12:36 | PDOC.PN ---
- Subjective Encounter Start Date: 12/29/17 Encounter Start Time: 12:15 Subjective: pt up in bed trached - Objective Resuscitation Status: Resuscitation Status FULL:Full Resuscitation Vital Signs & Weight: Vital Signs (12 hours) Temp Pulse Resp Pulse Ox 12/29/17 11:00 102 F H 12/29/17 10:40 99 28 H 98 12/29/17 08:00 100.5 F H 99 12/29/17 07:02 100 12/29/17 07:01 100 25 H 100 12/29/17 04:00 100.3 F H Weight Admit Weight 214 lb 8 oz Weight 214 lb 8 oz Most Recent Monitor Data Heart Rate from ECG 98 NIBP 115/86 NIBP BP-Mean 95 Respiration from ECG 25 SpO2 100 I&O: 12/28/17 12/29/17 12/30/17 06:59 06:59 06:59 Intake Total 2786 2826 180 Output Total 1600 1391 387 Balance 1186 1435 -207 Result Diagrams: 12/29/17 04:30 12/29/17 04:30 Additional Labs: Accuchecks 12/29/17 12/29/17 12/28/17 11:58 04:55 21:40 POC Glucose 125 H 118 H 116 H 12/28/17 15:58 POC Glucose 119 H Phys Exam - Physical Examination Neck: no nodes, no JVD, supple, full ROM rhonchi all over to lungs Cardiovascular: RRR, no significant murmur, no rub, gallop, irregular Gastrointestinal: soft, non-tender, no distention, positive bowel sounds Deviation from normal: rash all over, maculapapular Dx/Plan (1) Rash Code(s): R21 - RASH AND OTHER NONSPECIFIC SKIN ERUPTION Status: Acute (2) ICH (intracerebral hemorrhage) Code(s): I61.9 - NONTRAUMATIC INTRACEREBRAL HEMORRHAGE, UNSPECIFIED Status: Acute Comment: S/ P craniotomy and drain placement (3) Status post craniectomy Code(s): Z98.890 - OTHER SPECIFIED POSTPROCEDURAL STATES Status: Acute (4) UTI (urinary tract infection) Status: Acute - Plan pt spiked a temp last night, urine indicated uti -: pt is on scott -: ct head ordered by neurosurgery * . Review of Systems - Review of Systems Other: unable to obtain - Medications/Allergies Allergies/Adverse Reactions: Allergies Allergy/AdvReac Type Severity Reaction Status Date / Time codeine Allergy Verified 12/25/17 23:29 Medications: Current Medications Acetaminophen (Tylenol) 650 mg PO Q4H PRN PRN Reason: Headache/Fever/Mild Pain (1-3) Last Admin: 12/29/17 11:57 Dose: 650 mg Albuterol/Ipratropium (Duoneb) 3 ml NEB QID-RT [facility] Last Admin: 12/29/17 10:40 Dose: 3 ml Bisacodyl (Dulcolax) 10 mg PO DAILYPRN PRN PRN Reason: Constipation Dextrose/Water (Dextrose 50%) 25 gm IVP PRN PRN PRN Reason: HYPOGLYCEMIA PROTOCOL Glucagon (Glucagon) 1 mg IM PRN PRN PRN Reason: HYPOGLYCEMIA PROTOCOL Glycopyrrolate (Robinul) 1 mg PER TUBE TID [facility] Last Admin: 12/29/17 07:58 Dose: 1 mg Hydrocortisone/Aloe (Hydrocortisone 1% Cream) 1 gm TOP DAILY [facility] Last Admin: 12/28/17 09:42 Dose: 1 applic Hydroxyzine HCl (Atarax) 50 mg PER TUBE QIDPRN PRN PRN Reason: Itching Last Admin: 12/29/17 06:00 Dose: 50 mg Sodium Chloride (Normal Saline 0.9%) 1,000 mls @ 50 mls/hr IV .Q20H [facility] Last Admin: 12/29/17 06:00 Dose: 1,000 mls Insulin Glargine 10 units/ (Miscellaneous Medication) 0.1 mls @ 0 mls/hr SC QAM [facility] Last Admin: 12/29/17 07:57 Dose: 0.1 mls Dextrose/Water (D5w) 1,000 mls @ 0 mls/hr IV INF PRN PRN Reason: HYPOGLYCEMIA PROTOCOL Linezolid 600 mg/ Device 300 mls @ 150 mls/hr IVPB 0100,1300 [facility] Meropenem 2 gm/ Miscellaneous Medication 1 each/ Sodium Chloride 100 mls @ 200 mls/hr IVPB Q8HR [facility] Insulin Human Regular (Humulin R) 0 units SC .MILD SLIDING PRN; Protocol PRN Reason: MILD SLIDING SCALE Labetalol HCl (Normodyne) 10 mg SLOW IVP Q6HR PRN PRN Reason: Blood Pressure Last Admin: 12/29/17 09:50 Dose: 2 ml Levetiracetam (Keppra Oral Solution) 1,000 mg PER TUBE BID [facility] Last Admin: 12/29/17 07:57 Dose: 1,000 mg Lisinopril (Zestril) 5 mg PO DAILY [facility] Last Admin: 12/29/17 07:57 Dose: 5 mg Ondansetron HCl (Zofran) 4 mg IVP Q8H PRN PRN Reason: Nausea/Vomiting Pantoprazole Sodium (Protonix) 40 mg PER TUBE DAILY [facility] Last Admin: 12/29/17 07:57 Dose: 40 mg Scopolamine (Transderm Scop) 1.5 mg TOP Q3D [facility] Last Admin: 12/29/17 11:57 Dose: 1.5 mg Sodium Chloride (Flush - Normal Saline) 10 ml IVF PRN PRN PRN Reason: Saline Flush Sodium Chloride (Flush - Normal Saline) 10 ml IVF Q12HR [facility] Last Admin: 12/29/17 07:58 Dose: 10 ml Sodium Chloride (Flush - Normal Saline) 10 ml IVF PRN PRN PRN Reason: Saline Flush
[2017-12-29] MEDS: Linezolid 600 MG in Premix Bag 1 BAG IVPB SCH (12:41)
[2017-12-29] MEDS: Hydrocortisone 1% Cream 30 GM TUBE TOP SCH (12:44)
[2017-12-29] MEDS: Meropenem 2 GM, Admixture Fee 1 EACH in Sodium Chloride 0.9% 100 ML IVPB SCH ×2 (14:19→21:54)
--- NOTE | 2017-12-29 14:52 | CT ---
CT BRAIN WITHOUT CONTRAST: HISTORY: Followup. COMPARISON: CT brain 4 days prior. FINDINGS: The midline shift, [id number], is mildly increased to 11 mm, previously 8 mm. Extraarticular drai n is present with tip in the right lateral ventricle body. There is continued herniation of the right frontotemporoparietal lobes. The hydrocephalus is similar . Small volume intraventricular hemorrhage. There is extensive infarction right MCA territory. There is evolution of infarction involving the right sun radiata, increased from the comparison ex amination. There is new or progressive loss of mello-white matter differentiation within the right oc cipital lobe. Right anterior temporal infarction has progressed with decreasing density. IMPRESSION: 1. Extraventricular drain tip in the body of the right lateral ventricle. 2. Increased midline shift now 11 mm [id number] shift. 3. Infarction of the right occipital lobe as well as progressive infarction right temporal lobe infe riorly. 4. Small volume hemorrhage within the defect of the right parietal lobe with similar appearance of t he hemorrhage. 5. Small volume intraventricular hemorrhage. POS: [facility]
--- NOTE | 2017-12-29 19:27 | CON ---
DATE OF CONSULTATION: 12/29/2017 REASON FOR CONSULTATION: Fever. HISTORY OF PRESENT ILLNESS: A 47-year-old patient who has a history of hypertension, asthma, bipolar disorder who was admitted on 11/20/2017 with a large intracerebral hemorrhage secondary to ruptured aneurysm. Patient underwent emergent hemicraniectomy for decompression and later underwent coiling w ith angiography by Dr. Jeong. She had a trach and PEG placement and then was discharged with a tube feeding diet and a helmet for transport. Discharge medicines included phenytoin, labetalol, ondanset hailey, piperacillin and tazobactam, venlafaxine and zafirlukast. Patient was transferred to an LTAC in [place] and developed progressive cognitive decline and could not open spontaneously her eyes or fol low commands. There was a significant swelling at the incision site without any drainage. Head CT s howed some movement in the bone flap and enlargement of ventricles with a midline shift with brain ma terial herniating through the craniotomy defect. The movement that they described as bone flap was a ctually the Silastic sheeting used intraoperatively to protect the dura. Upon transfer, the patient had a tracheostomy in place. She withdraws minimally to painful stimuli. The pupil on the right dee e was a 7 mm and sluggish. She had some drooling. Adelia were closed without any dehiscence. The patient had transcutaneous ventriculostomy device placed. She was admitted to the Intensive [facility]. Admitting labs showed a white cell count of 5.7, hemoglobin 9.8, platelets 360, 70% neutrophils a nd 5.3% eosinophils. The chemistry demonstrated sodium 135, creatinine 0.63. Alkaline phosphatase 1 83 with normal transaminases and bilirubin. Albumin 3.3. Brain CT demonstrated a protrusion of the frontal and temporal cortex through the craniotomy defect pushing the prostatic plate outward with mi dline shift to the right, some blood product present along the posterior margin from the previously l arge noted hematoma. On admission, she had this extensive area of erythema spreading throughout her body skin including appendicular structures, abdomen and chest and back. Currently, she is receiving the medications listed below. She apparently had the phenytoin discontinued as well as the Zosyn. The patient is obtunded. She does not follow commands. She has had no diarrhea, no evidence of aspi ration. She continues to have the ventriculostomy tube, monitor in the ICU and she is voiding throug h a Ortega catheter. There are some concerns with the gastrostomy exit site because of "induration" a round the exit site and this is further discussed in the physical examination section. PAST MEDICAL HISTORY: Asthma, hypertension, bipolar disorder, GERD and a recently ruptured cerebral artery aneurysm manage her for coiling and craniectomy for decompression. PAST SURGICAL HISTORY: Also with cholecystectomy. She also had a PEG and trach placed for this last admission, she had ORIF lateral malleolus. She had a previous malpositioned PEG tube which required repositioning through laparoscopy and the transcutaneous ventriculostomy. SOCIAL HISTORY: Former smoker. FAMILY HISTORY: Noncontributory. ALLERGIES: CODEINE. CURRENT MEDICATIONS: Tylenol, DuoNeb, Dulcolax, glucagon, Robinul, Atarax, insulin, Normodyne, Keppr a, linezolid, Zestril, meropenem, Zofran, Protonix, Transderm, scopolamine. PHYSICAL EXAMINATION: VITAL SIGNS: She had a temperature of 100 on admission and it has gone up to 102 and now is 101.8, p ulse 101, blood pressure 150/70, O2 sat 100. SKIN: Shows there is a macular erythematous rash with confluency spread throughout the body skin, ap pendicular chest, abdomen and back areas. The gastrostomy exit site appears okay. Tracheostomy devin ar and exit site appeared normal. She has a PICC line in the right upper extremity with normal appea ring exit site. No nystagmus. HEENT: The sclerae are white. Pupil on the right side is about 5 mm in the left side 4 mm, sluggish ly reactive. Oral cavity with dry oral mucosa. LUNGS: With symmetric air entry with some wheezing. HEART: S1, S2, regular rate. ABDOMEN: Soft, without distention or maybe mild to moderate distention with ascites, no organomegaly , no bladder distention. EXTREMITIES: I could not elicit any movement in the extremities. She has this repetitive movement i n her right foot against her left leg where she tries to scratch her left leg with the right foot. T his seems to be purposeful. She has no lymphadenopathy. The patient has overall diffuse spasticity, particularly in the lower extremities with upgoing toes. The left malleolar fracture site has metal sutures in place. The whole incision appears clean and dry without erythema or drainage the site do es not have significant erythema except for the erythema associated with the skin eruption which is d iffuse. NEUROLOGIC: She is obtunded, does not interact with the examiner, does not establish eye contact. LABORATORY DATA: Follow up WBC count 8.4, hemoglobin 8.7, platelets 486, 68% neutrophils, 8% bands, 15% lymphocytes, and 4% eosinophils. Microbiology with pending blood cultures 2 sets and the imaging studies described above. ASSESSMENT: 1. Hypertension and asthma. 2. Brain aneurysm with hemorrhage requiring craniectomy and clipping of the aneurysm recently with a transfer to LTAC on Zosyn and phenytoin. 3. Diffuse macular erythematous rash with confluency throughout the body skin. 4. Fever. 5. Hydrocephalus with requirement for placement of a transcutaneous ventriculostomy. DISCUSSION: The differential diagnosis includes a drug hypersensitivity reaction secondary to phenyt oin or Zosyn with a dress like syndrome and fever. An infectious complication needs to be considered . The patient has been started on broad spectrum coverage. She has a PICC line in place and those t ypically done get usually colonized by bacteria or fungi, but will continue monitoring blood cultures . The ventriculostomy site is another area of concern, but has just recently been placed. We may leon ve to evaluate the CSF depending on clinical progress. There is no evidence of intra-abdominal infla mmatory process, although there is some concern with a gastrostomy tube since it had been displaced i n the past and she may require imaging study depending on clinical progress. Finally, the urinary tr act seems to be less of a concern. So again the #1 likely cause of the fever is the drug hypersensit ivity reaction either due to Zosyn or phenytoin, who had already been discontinued. Typically, those progress over a period of days to 2 weeks and she may still have inflammatory changes and this is st eadily progressing skin rash despite discontinuation of the medication culprit.
[2017-12-30] MEDS: Linezolid 600 MG in Premix Bag 1 BAG IVPB SCH ×2 (00:07→13:36)
[2017-12-30 04:52] LABS: Phosphorus 3.7 mg/dL (2.3-4.7)
[2017-12-30 04:55] LABS: Anion Gap 12 mmol/L (10-20); BUN (Urea Nitrogen) 14 mg/dL (7.0-18.7); Calc. Creatinine Clearance 179 mL/min (70-130); Calcium 8.5 mg/dL (7.8-10.44); Carbon Dioxide 27 mmol/L (22-29); Chloride 103 mmol/L (98-107); Estimated GFR-MDRD Greater than 90; Glucose 105 mg/dL (70-105); Magnesium 1.9 mg/dL (1.6-2.6); Potassium 3.8 mmol/L (3.5-5.1); Sodium 138 mmol/L (136-145)
[2017-12-30] MEDS: Sodium Chloride 0.9% 1,000 ML IV SCH (06:38)
[2017-12-30] MEDS: Meropenem 2 GM, Admixture Fee 1 EACH in Sodium Chloride 0.9% 100 ML IVPB SCH ×3 (06:38→21:39)
--- NOTE | 2017-12-30 06:55 | PRG ---
DATE OF SERVICE: 12/29/2017 SUBJECTIVE: Ms. Norwood has spiked a temperature yesterday. Her nurse lady had contacted [facility] and shonda was informed that they thought Dilantin was the cause of her macular rash. Her temperature is 100.5 this morning. Blood cultures were done yesterday. Spinal fluid had been cu ltured. This will be deferred to Neurosurgery. Hospitalist consulted Infectious Disease. She is in no distress. She spontaneously moves her right side. I have not seen any left-sided movement. She will not open her eyes for me. Reviewing Dr. Tracey's note yesterday, he says she would hold her left upper extremity up in the air when they move that up there. He plans to continue to drain at 10 cm of water. The drainage has been 5-10 mL an hour. Her lungs are completely clear. Yesterday's chest radiograph is clear. OBJECTIVE: HEART: Regular rhythm. S1 and S2 are normal. ABDOMEN: Soft and nontender. EXTREMITIES: Without any change. She does still have a macular rash, but it is certainly no worse. LABORATORY DATA: White count 8.4, hemoglobin 8.7, platelets 486,000. Sodium 137, potassium 4, chlor whitney 102, bicarbonate 26, BUN 14, creatinine 0.6. IMPRESSION: 1. Status post external ventricular drain placement. 2. Hydrocephalus. 3. Drug eruption probably related to Dilantin. Apparently, she was on the penicillin when she left here and had no rash. A drug eruption began while she was at the [facility]. Other problems include history of hypertension, asthma, bipolar disorder, depression, and cholecystec mirian in the past. She had a right hemicraniectomy last admission. She also had a left lateral malleolus fracture that was surgically repaired last admission. She has a PEG in place. The aunt told me she was moving all 4 extremities when she left. Of note, she had to have revision of her PEG while she was here last visit. Dr. Jeong's note do not reflect any movement of her left side prior to discharge from the hospital, so I think that history m ay be inaccurate. We will continue with supportive care.
[2017-12-30] MEDS: Insulin Glargine 10 UNITS in Pre-Filled Syringe 1 EACH SC SCH (10:11)
[2017-12-30] MEDS: Glycopyrrolate 1 MG TAB PER TUBE SCH ×3 (10:12→21:34)
[2017-12-30] MEDS: Pantoprazole 40 MG GRANULES PACKET PER TUBE SCH (10:13)
[2017-12-30] MEDS: Lisinopril 5 MG TAB PO SCH (10:13)
[2017-12-30] MEDS: Hydrocortisone 1% Cream 30 GM TUBE TOP SCH (10:14)
[2017-12-30] MEDS: levETIRAcetam 500 mg/5 ml Oral Solution PER TUBE SCH (11:14)
[2017-12-30] MEDS: levETIRAcetam In NaCl (Iso-Os) 1,000 MG in Premix Bag 1 BAG IVPB SCH ×4 (11:23→21:34)
[2017-12-30] MEDS ORDERED: levETIRAcetam In NaCl (Iso-Os) 1,000 MG in Premix Bag 1 BAG IVPB SCH (11:30)
--- NOTE | 2017-12-30 13:14 | RAD ---
KUB: HISTORY: A 47-year-old female with a history of abdominal distention near the PEG tube. FINDINGS: Contrast media was injected through the PEG tube. The PEG tube does not extend into the stomach, alt radha some contrast media did go down a tract and enter the stomach. A majority of the contrast medi a is collected, presumably in the subcutaneous tissues measuring approximately 6.5 x 7.5 cm in size, probably accounting for the palpable finding. IMPRESSION: PEGT tube has been pulled out with some contrast media that was injected extending down the tract and entering the stomach but with the majority of the contrast media being within an abnormal collection presumed to be in the abdominal wall or subcutaneous tissue. The tube will need to be reinserted or potentially advanced back into the stomach. Findings were discussed with Nurse Casas at 12:12 p.m. CODE JONATHAN POS: WINIFRED
[2017-12-30] MEDS: Acetaminophen 1,000 MG in Premix Bag 1 BAG IVPB PRN (13:31)
--- NOTE | 2017-12-30 15:10 | PRG ---
DATE OF SERVICE: 12/30/2017 SUBJECTIVE: Brigida Norwood is clinically unchanged. OBJECTIVE: VITAL SIGNS: Temperature is 100, heart rate is 73, blood pressure 115/81, respiratory rate is 25. LUNGS: Clear. HEART: Regular rhythm. ABDOMEN: Soft. EXTREMITIES: Unchanged. She has grown Pseudomonas and another gram negative from her urine. This should not be the source of her fever with a proper functioning Ortega, but antimicrobial therapy probably will end up having to be adjusted. Her blood cultures are negative from the . IMPRESSION: 1. Status post placement of an external ventricular drain. 2. Ongoing fever. Infectious Disease is following. PLAN: She is not having any respiratory compromise. There is some concern that her PEG may be displaced. Gastroenterology has been consulted to assist in evaluation of this. Her feedings are on hold for now. Her macular rash which in my opinion is most likely a drug eruption, is unchanged. I would bet that Dilantin is at the top of the list. We will continue with Critical Care monitoring. She continues with ventricular drainage. [facility]
--- NOTE | 2017-12-30 15:30 | PDOC.PN ---
- Subjective Encounter Start Date: 12/30/17 Encounter Start Time: 11:55 Subjective: pt intubated - Objective Resuscitation Status: Resuscitation Status FULL:Full Resuscitation Vital Signs & Weight: Vital Signs (12 hours) Temp Pulse Resp Pulse Ox 12/30/17 14:58 97 22 H 100 12/30/17 12:00 100.0 F H 12/30/17 10:35 96 22 H 100 12/30/17 10:13 109 H 12/30/17 10:00 100.3 F H 12/30/17 07:35 100 12/30/17 07:00 100.7 F H 12/30/17 06:57 100 12/30/17 06:55 109 H 28 H 99 12/30/17 04:00 98.6 F Weight Admit Weight 214 lb 8 oz Weight 218 lb 11.177 oz Most Recent Monitor Data Heart Rate from ECG 94 NIBP 116/64 NIBP BP-Mean 92 Respiration from ECG 22 SpO2 100 I&O: 12/29/17 12/30/17 12/31/17 06:59 06:59 06:59 Intake Total 2826 2400 30 Output Total 1391 2360 600 Balance 1435 40 -570 Result Diagrams: 12/29/17 04:30 12/30/17 04:20 Additional Labs: Accuchecks 12/30/17 12/30/17 12/29/17 10:02 04:23 21:52 POC Glucose 130 H 108 109 12/29/17 16:34 POC Glucose 123 H Phys Exam - Physical Examination Neck: no nodes, no JVD, supple, full ROM mild rhonchi to lung Cardiovascular: RRR, no significant murmur, no rub, gallop, irregular Gastrointestinal: soft, positive bowel sounds Musculoskeletal: edema present lower ext Deviation from normal: maculapapular rash all over Dx/Plan (1) Rash Code(s): R21 - RASH AND OTHER NONSPECIFIC SKIN ERUPTION Status: Acute (2) ICH (intracerebral hemorrhage) Code(s): I61.9 - NONTRAUMATIC INTRACEREBRAL HEMORRHAGE, UNSPECIFIED Status: Acute Comment: S/ P craniotomy and drain placement (3) Status post craniectomy Code(s): Z98.890 - OTHER SPECIFIED POSTPROCEDURAL STATES Status: Acute (4) UTI (urinary tract infection) Status: Acute - Plan per nurse pt having high residuals and abd distention -: gi consulted -: pt on abx. Appreciate ID recommendation * . Review of Systems - Review of Systems Other: unable to obtain - Medications/Allergies Allergies/Adverse Reactions: Allergies Allergy/AdvReac Type Severity Reaction Status Date / Time codeine Allergy Verified 12/25/17 23:29 Medications: Current Medications Acetaminophen (Tylenol) 650 mg PO Q4H PRN PRN Reason: Headache/Fever/Mild Pain (1-3) Last Admin: 12/29/17 23:48 Dose: 650 mg Albuterol/Ipratropium (Duoneb) 3 ml NEB QID-RT [facility] Last Admin: 12/30/17 14:58 Dose: 3 ml Bisacodyl (Dulcolax) 10 mg PO DAILYPRN PRN PRN Reason: Constipation Dextrose/Water (Dextrose 50%) 25 gm IVP PRN PRN PRN Reason: HYPOGLYCEMIA PROTOCOL Glucagon (Glucagon) 1 mg IM PRN PRN PRN Reason: HYPOGLYCEMIA PROTOCOL Glycopyrrolate (Robinul) 1 mg PER TUBE TID [facility] Last Admin: 12/30/17 14:53 Dose: Not Given Hydrocortisone/Aloe (Hydrocortisone 1% Cream) 1 gm TOP DAILY [facility] Last Admin: 12/30/17 10:14 Dose: 1 applic Hydroxyzine HCl (Atarax) 50 mg PER TUBE QIDPRN PRN PRN Reason: Itching Last Admin: 12/29/17 21:59 Dose: 50 mg Sodium Chloride (Normal Saline 0.9%) 1,000 mls @ 50 mls/hr IV .Q20H [facility] Last Admin: 12/30/17 06:38 Dose: 1,000 mls Insulin Glargine 10 units/ (Miscellaneous Medication) 0.1 mls @ 0 mls/hr SC QAM [facility] Last Admin: 12/30/17 10:11 Dose: 0.1 mls Dextrose/Water (D5w) 1,000 mls @ 0 mls/hr IV INF PRN PRN Reason: HYPOGLYCEMIA PROTOCOL Linezolid 600 mg/ Device 300 mls @ 150 mls/hr IVPB 0100,1300 [facility] Last Admin: 12/30/17 13:36 Dose: 300 mls Meropenem 2 gm/ Miscellaneous Medication 1 each/ Sodium Chloride 100 mls @ 200 mls/hr IVPB Q8HR [facility] Last Admin: 12/30/17 13:34 Dose: 100 mls Levetiracetam 1,000 mg/ Device 100 mls @ 200 mls/hr IVPB BID [facility] Last Admin: 12/30/17 11:46 Dose: 100 mls Acetaminophen 1,000 mg/ Device 100 mls @ 400 mls/hr IVPB Q6H PRN PRN Reason: FEVER/PAIN Stop: 12/31/17 12:27 Last Admin: 12/30/17 13:31 Dose: 100 mls Insulin Human Regular (Humulin R) 0 units SC .MILD SLIDING PRN; Protocol PRN Reason: MILD SLIDING SCALE Labetalol HCl (Normodyne) 10 mg SLOW IVP Q2H PRN PRN Reason: SBP >160 Lisinopril (Zestril) 5 mg PO DAILY [facility] Last Admin: 12/30/17 10:13 Dose: Not Given Ondansetron HCl (Zofran) 4 mg IVP Q8H PRN PRN Reason: Nausea/Vomiting Pantoprazole Sodium (Protonix) 40 mg PER TUBE DAILY [facility] Last Admin: 12/30/17 10:13 Dose: Not Given Scopolamine (Transderm Scop) 1.5 mg TOP Q3D [facility] Last Admin: 12/29/17 11:57 Dose: 1.5 mg Sodium Chloride (Flush - Normal Saline) 10 ml IVF PRN PRN PRN Reason: Saline Flush Sodium Chloride (Flush - Normal Saline) 10 ml IVF Q12HR [facility] Last Admin: 12/30/17 10:12 Dose: 10 ml Sodium Chloride (Flush - Normal Saline) 10 ml IVF PRN PRN PRN Reason: Saline Flush
--- NOTE | 2017-12-30 16:41 | PRG ---
DATE OF SERVICE: 12/30/2017 SUBJECTIVE: Ms. Norwood is seen and examined today. She has got induration to her left abdomen. Tub e check today revealed contrast going into the subcu. There is some into the stomach. The tub e feeds have been stopped. My plan is to have Interventional Radiology tomorrow try to put a wire down into the stomach and get a replacement PEG back in. Otherwise, she will have to be fed with a Dobbhoff for the time being. I f cannot get feeding tube back in through this tract, probably would not replace until the induration in her left abdominal wall resolves. I am not sure what is going to happen with those tube feeds in the abdominal wall, exploration would be difficult and she would have wound healing issues. However , with the tube feeds there, some of them are draining out through the tube site, but this makes her high risk for a cellulitis or abscess over there. So, we will have to keep a close eye on her and do CT scan of her abdomen if that induration or swelling worsens.
--- NOTE | 2017-12-30 17:35 | CON ---
DATE OF CONSULTATION: 12/30/2017 REASON FOR CONSULTATION: Possible PEG tube malfunction. CONSULTING PHYSICIAN: Dr. Freddy Ratliff. HISTORY OF PRESENT ILLNESS: The patient is a 47-year-old female with past medical history of hyperte nsion, asthma, bipolar disorder, depression, GERD and within the last month a ruptured cerebral arter y aneurysm, status post coiling and craniectomy presenting with PEG tube malfunction. The patient is currently unresponsive to all interviewing and questioning, so all the information obtained was per chart review. Per chart review, the patient had the sudden onset of a ruptured cerebral artery aneur ysm in 11/2017 that ultimately required craniectomy and decompression. During the course of that hos pitalization, she had a tracheostomy and gastrostomy tube placed with a gastrostomy tube placed on ; however, there were concerns about movement of the gastrostomy tube and on 12/01/2017 she u nderwent a diagnostic laparoscopy which noted the PEG tube had been dislodged and was now present in the abdominal wall, but not contaminating the peritoneal cavity itself. Surgical repair was made of the old gastrostomy tube and a surgically placed gastrostomy tube was performed at that time. Since then she was discharged from this hospital and recently been readmitted to the hospital in [facility] for further management of her care. While in that hospital, she was changed to certain medicatio ns with the appearance of a systemic rash over the course of her entire body; however, she was ultima tely transferred to [facility] for further care and while here was noted to have in addition to continued systemic rash, some mild oozing of blood from the PEG tube site concerning for recurren ce of the dislodgement. Per nursing staff, the tube has been flushing well with no impedance of flow for liquids. REVIEW OF SYSTEMS: A 10-category review of systems cannot be obtained due to the patient's mental st atus. PAST MEDICAL HISTORY: As per HPI. PAST SURGICAL HISTORY: Cholecystectomy, tracheostomy placement, percutaneous gastrostomy tube placem ent x2, ORIF of the lateral malleolus and transcutaneous ventriculostomy. FAMILY HISTORY: Unable to obtain, but per chart review, no statement of family history of GI maligna ncies. SOCIAL HISTORY: Patient was a former smoker, but no mention of alcohol or illicit drug use. CURRENT MEDICATIONS: Reviewed. ALLERGIES: CODEINE. PHYSICAL EXAMINATION: VITAL SIGNS: Temperature 100.3, pulse 96, blood pressure 110/78, respiratory rate 22, satting 100% o n mechanical ventilation. GENERAL: The patient was lying in bed in no acute distress, currently with tracheostomy tube and mariaa ble to contribute to verbal stimuli. She did have some repetitive movements of the right lower extre mity. Otherwise, no purposeful movements. HEENT: Neck is supple. No JVD or scleral icterus noted. CARDIOVASCULAR: Tachycardic rate, but regular rhythm. No discernible murmurs, gallops or rubs. RESPIRATORY: Coarse breath sounds heard in all lung enciso consistent with mechanical ventilation. ABDOMEN: Normoactive bowel sounds, soft. Mild abdominal distention. No grimacing to palpation of t he abdomen itself. Examination of the PEG tube site revealed no increased erythema around the PEG tu be itself, however, a dressing had been placed underneath the bumper and the external bumper was actu ally tight up against the skin. The initial attempts to rotate the PEG tube were met with some resis tance, but upon loosening the external bumper to approximately 1 cm between the skin and the external bumper, the PEG tube was now moving freely. They did not seem to be malpositioned or within the int ra-abdominal wall due to resistance upon very gentle traction. Some mild thickening of the skin is a round the PEG tube itself, but extends into her abdomen concerning for possible anasarca not necessar dena induration around the PEG tube site. Minimal oozing of blood was seen coming from around the PEG tube itself upon manipulation of the tube. EXTREMITIES: Nonpitting edema was seen in both the upper and lower extremities. LABORATORY DATA: CBC with white blood cell count of 8.4, hemoglobin 8.7, hematocrit 26.8, platelets 486. Chemistry with sodium of 138, potassium 3.5, chloride 103, CO2 27, BUN 14, creatinine 0.61 and glucose 105. IMAGING DATA: Chest x-ray obtained on 12/28/2017 showed no pneumothorax or effusion. Cardiac silhou ette and mediastinal contours were within normal limits. The tracheostomy tube tip was in stable pos ition. ASSESSMENT AND PLAN: The patient is a 47-year-old female with past medical history of hypertension, asthma, bipolar disorder, depression, gastroesophageal reflux disease and recent ruptured cerebral ar joel aneurysm, status post coiling and craniectomy with ventriculostomy placement, presenting with al tered mental status requiring tracheostomy and gastrostomy tube placement. Possible gastrostomy tube malfunction. With the initial presentation of the patient and the ruptured cerebral artery aneurysm, the patient h as been unable to adequately intake nutrition orally and has subsequently had the placement of a teetee rostomy tube on 11/28/2017; however, there was some noticed that the PEG tube itself was out of posit ion and ultimately she underwent a diagnostic laparoscopy on 12/01/2017 that showed that the PEG tube had been indeed been dislodged from the lumen of the stomach and was present in the anterior abdomin al wall without communication to the peritoneal cavity. That PEG tube was subsequently removed with repair of the stomach performed and a new gastrostomy tube was placed through laparoscopic means. Si nce that time, there had been no additional problems with the PEG tube, but more recently, the patien t developed a systemic rash with involvement of the anterior abdomen and upon evaluation of the PEG t ube there was thickened skin around it concerning for induration, although that is not present on phy sical examination today. With manipulation of the PEG tube today, it was very tight against the skin and was difficult to rotate upon initial examination due to being tight against the skin. However, upon withdrawing the external bumper back to maintain a distance of 1 cm between the external bumper and the skin, it is now rotating freely with no resistance. With this increased traction from the ex ternal bumper, it could potentially create pressure ulceration of the gastric lumen or anterior gastr ic wall, which could then lead to buried bumper syndrome creating blood return either around the perc utaneous gastrostomy tube site or within the actual gastrostomy tube itself. RECOMMENDATIONS: 1. We would follow standard PEG tube care precautions including maintaining a distance of approximat luciano 1 cm between the external bumper and the skin at all times. Rotating the gastrostomy tube approx imately 720 degrees daily to prevent secretion buildup and crusting. Would flush the PEG tube with 6 0 mL of water before and after all tube feeds to maintain tube patency and please try avoid putting a ny gauze or dressings between the external bumper and the skin as this can create distraction. 2. I would recommend obtaining a KUB with Gastrografin instillation to confirm presence of the inter nal bumper within the lumen of the stomach. If the KUB is showing adequate position, then the percut aneous gastrostomy tube can be used immediately. 3. We will follow peripherally for now based on the results of the KUB and we will take a look at th e PEG tube tomorrow if no additional difficulties. We will sign off. Please call with any additiona l questions.
--- NOTE | 2017-12-30 18:12 | PRG ---
DATE OF SERVICE: 12/30/2017 SUBJECTIVE: The patient had a contrast study of her PEG tube and there was some question regarding p enetration of the contrast in the tissues outside the gastric area and the patient is scheduled for r eevaluation of the tract between the skin and the gastric cavity by Dr. Huber. Continues with a ve ntriculostomy drain, percutaneous, has not had any diarrhea. OBJECTIVE: VITAL SIGNS: T-max 101.1 earlier today. She is now 100 and BP 112/69, pulse 97, respirations 22. SKIN: Rash as noted previously, not as bright red as yesterday, but still with the same extent of in volvement of the skin. The percutaneous drain in place. Right-sided PICC line. LUNGS: Symmetric air entry. HEART: S1 and S2, regular rate. ABDOMEN: Soft and not distended. Bowel sounds are present. NEUROLOGIC: Examination is unchanged from yesterday. LABORATORY DATA: White cell count 8.4, hemoglobin 8.7, platelets 46, and 68% neutrophils. We do not have CBC for today. The chemistry today is not particularly remarkable. Microbiology with Pseudomo belinda aeruginosa and gram negative jin in urine culture. Urinalysis show greater than 50 WBCs. ASSESSMENT AND DISCUSSION: Hypertension, asthma, brain aneurysm with hemorrhage, status post craniec mirian and clipping of aneurysm and a diffuse macular erythematous rash likely a drug eruption from eit her Zosyn or phenytoin with fever likely secondary to the skin hypersensitive reaction. She also has abnormal urinalysis with positive urine cultures, which are being treated with meropenem at this alka e and hydrocephalus with requirement for placement of transcutaneous ventriculostomy device. I belie ve that the fever is most likely due to the hypersensitive reaction, but we will continue the antimic robial therapy in view of the findings in the urinary tract.
--- NOTE | 2017-12-30 19:12 | PRG ---
DATE OF SERVICE: 12/30/2017 Ms. Norwood is hospital day #5 following placement of left frontal external ventricular drain for inte rnal hydrocephalus. Head CT demonstrated improvement in the herniation of her cerebrum out of the cr aniectomy defect. I have decreased her EVD setting to 5 cm of water to try and promote more drainage , and her drain output has been 320 mL over the last 24 hours. I am encouraged by this as her flap i s a bit more sunken and softer. I think this will facilitate complete healing of the right craniecto my wound, likely the hetal will come out this week. Her rash continued to be treated by Dr. Villegas in [place] and I appreciate their excellent care. Ultrasound of lower extremities was negative for D VT. Dr. Jeong will be returning tomorrow and any further plans, I will obviously defer to him.
[2017-12-31] MEDS: diphenhydrAMINE 50 MG/ML VIAL IVP PRN ×2 (00:15→09:49)
[2017-12-31] MEDS: Acetaminophen 1,000 MG in Premix Bag 1 BAG IVPB PRN (00:27)
[2017-12-31] MEDS: Linezolid 600 MG in Premix Bag 1 BAG IVPB SCH ×2 (00:47→14:20)
[2017-12-31] MEDS: Sodium Chloride 0.9% 1,000 ML IV SCH ×2 (00:48→18:14)
[2017-12-31 05:02] LABS: Phosphorus 3.5 mg/dL (2.3-4.7)
[2017-12-31 05:16] LABS: Anion Gap 10 mmol/L (10-20); BUN (Urea Nitrogen) 11 mg/dL (7.0-18.7); Calc. Creatinine Clearance 206 mL/min (70-130); Calcium 8.3 mg/dL (7.8-10.44); Carbon Dioxide 26 mmol/L (22-29); Chloride 104 mmol/L (98-107); Estimated GFR-MDRD Greater than 90; Glucose 93 mg/dL (70-105); Potassium 3.3 mmol/L (3.5-5.1); Sodium 137 mmol/L (136-145)
[2017-12-31] MEDS: Meropenem 2 GM, Admixture Fee 1 EACH in Sodium Chloride 0.9% 100 ML IVPB SCH ×3 (05:21→21:01)
[2017-12-31] MEDS: Glycopyrrolate 1 MG TAB PER TUBE SCH ×3 (07:44→20:35)
[2017-12-31] MEDS: Pantoprazole 40 MG GRANULES PACKET PER TUBE SCH (07:45)
[2017-12-31] MEDS: Lisinopril 5 MG TAB PO SCH (07:45)
[2017-12-31] MEDS ORDERED: CCU Electrolyte Replacement 1 EACH FS ONE (07:54)
[2017-12-31] MEDS ORDERED: CCU ELECTROLYTE REPLACEMENT PROTOCOL FS PRN (07:58)
[2017-12-31] MEDS ORDERED: Potassium Chloride 40 MEQ in Sodium Chloride 0.9% 250 ML 250 ML IVPB PRN (07:58)
[2017-12-31] MEDS ORDERED: Potassium Chloride 20 MEQ TAB PO PRN (07:58)
[2017-12-31] MEDS ORDERED: Potassium Phosphate 15 MMOL in Sodium Chloride 0.9% 250 ML 250 ML IV PRN (07:58)
[2017-12-31] MEDS ORDERED: Potassium Phosphate 12 MMOL in Sodium Chloride 0.9% 250 ML 250 ML IV PRN (07:58)
[2017-12-31] MEDS ORDERED: Magnesium 2 GM/NS 0.9% 100 ML 2 GM in Premix Bag 1 BAG IVPB PRN (07:58)
[2017-12-31] MEDS ORDERED: Potassium Phosphate 9 MMOL in Sodium Chloride 0.9% 100 ML IVPB PRN (07:58)
[2017-12-31] MEDS ORDERED: Magnesium Oxide 400 MG TAB PO PRN ×2 (07:58)
[2017-12-31] MEDS: Insulin Glargine 10 UNITS in Pre-Filled Syringe 1 EACH SC SCH (08:13)
--- NOTE | 2017-12-31 08:15 | PRG ---
DATE OF SERVICE: 12/31/2017 The patient remains in the CCU. She is scheduled to go down to Interventional today to see if a G-tu be can be replaced. PHYSICAL EXAMINATION: VITAL SIGNS: Temperature is 98.2 with a T-max of 100.7, pulse 93, blood pressure 102/66. Intake for 24 hours 2337, output 1814. HEENT: Remarkable for swelling on the right side of the cranium. Pupils are 4 mm and sluggish. Analy pharynx clear. NECK: She has a trach in place which is clean. CARDIAC: S1 and S2 regular. LUNGS: Fairly clear anteriorly. ABDOMEN: Soft, obese. EXTREMITIES: She has a diffuse macular rash bilaterally, more prominent on the trunk and upper legs. LABORATORY DATA: Sodium 137, potassium 3.3, chloride 104, CO2 26, BUN 11, creatinine 0.5, glucose 93 . ASSESSMENT: 1. Status post EVD placement for hydrocephalus. 2. Fever may be secondary to urinary tract infection, may be secondary to abdominal situation. 3. Diffuse rash. RECOMMENDATIONS: 1. Replace potassium. Continue current antibiotics. Keep an eye on the sensitivities. 2. The patient is now on Keppra instead of Dilantin. It may take some time for this rash to dissipa te. 3. We will follow.
[2017-12-31] MEDS: Potassium Chloride 40 MEQ in Premix Bag 1 BAG IVPB PRN (08:17)
[2017-12-31] MEDS: levETIRAcetam In NaCl (Iso-Os) 1,000 MG in Premix Bag 1 BAG IVPB SCH ×2 (08:19→20:36)
[2017-12-31] MEDS: Hydrocortisone 1% Cream 30 GM TUBE TOP SCH (08:21)
--- NOTE | 2017-12-31 09:16 | RAD ---
LEFT ANKLE 2 VIEW SERIES: HISTORY: History of ankle fracture. FINDINGS: There is plate and screw fixation of the distal fibula with overlying skin hetal. Alignment is maribel r-anatomic. Mortise is intact. Underlying fracture lucencies at the distal fibula are again seen. There is a focus of heterotopic density also present about the posterior malleolus. IMPRESSION: 1. Fixated distal fibular fracture. 2. Fragmentation about the distal tibia is again seen. Alignment of mortise is improved comparing t o 11/22/2017. POS: [facility]
[2017-12-31] MEDS ORDERED: GASTROGRAFIN 30 ML BOT ONE (11:58)
[2017-12-31] MEDS ORDERED: MD-Gastroview 120 ML BOT ONE (11:58)
--- NOTE | 2017-12-31 15:33 | SPC ---
GASTROSTOMY TUBE EVALUATION UNDER FLUOROSCOPIC EVALUATION: INDICATIONS: Malfunctioning PEG tube. PROCEDURE: Informed consent was obtained. The patient was transferred to the procedural suite and placed on the interventional table in the supine position. The ventral abdomen was prepped and draped in a standa rd sterile fashion, as was the indwelling percutaneous gastrostomy tube. The gastrostomy tube was co nfirmed as patent, and an Amplatz wire was then advanced through the indwelling catheter. The wire t raversed the previously mentioned site of contrast, external to the gastric lumen, on the patient's p receding radiograph of 12/30/2017, and then passed into the distal gastric lumen/proximal duodenum. This was confirmed with a contrast injection through the indwelling catheter, which preferentially op acified ectatic bowel of the left abdomen, with subsequent opacification of a fistulous tract, commun icating between this area of opacified bowel and the gastric lumen. Subsequent contrast opacificatio n is seen within the C-loop of the duodenum. The distal aspect of the gastrostomy catheter is in mariela ce to the fullest extent possible, as it was upon the presentation of the patient, with the tip locat ed within the contrast opacified bowel of the left abdomen. Therefore, from the existing approach, a catheter could not be traversed to the level of the gastric lumen and, to avoid a more permanent fis tulization, a catheter will not be placed at this time. The guidewire was removed. As a result of t he above describe findings, a catheter exchange will not be performed, and the catheter should be man aged surgically. This was conveyed, via telephone, to the patient's ordering surgeon, Lyssa chahal M.D., at the time of procedural completion, at 12:05 hours, on 12/31/2017. IMPRESSION: Gastrostomy tube evaluation, under fluoroscopic guidance, as discussed above. CODE CR POS: WINIFRED
--- NOTE | 2017-12-31 18:33 | PDOC.PN ---
- Subjective Encounter Start Date: 12/31/17 Encounter Start Time: 11:45 Subjective: pt trached, nonverbal - Objective Resuscitation Status: Resuscitation Status FULL:Full Resuscitation Vital Signs & Weight: Vital Signs (12 hours) Temp Pulse Pulse Resp BP BP Pulse Ox 12/31/17 16:00 98.4 F 12/31/17 14:25 84 16 99 12/31/17 12:00 98.5 F 12/31/17 10:40 90 24 H 98 12/31/17 10:00 86 25 H 133/78 100 12/31/17 08:56 85 115/90 12/31/17 08:00 97 12/31/17 07:46 99 12/31/17 07:45 90 23 H 99 12/31/17 07:00 98.2 F Weight Admit Weight 214 lb 8.015 oz Weight 220 lb 7.396 oz Most Recent Monitor Data Heart Rate from ECG 100 NIBP 113/74 NIBP BP-Mean 87 Respiration from ECG 24 SpO2 100 I&O: 12/30/17 12/31/17 01/01/18 06:59 06:59 06:59 Intake Total 2400 2337 873 Output Total 2360 1814 742 Balance 40 523 131 Result Diagrams: 12/29/17 04:30 12/31/17 04:15 Additional Labs: Accuchecks 12/31/17 12/31/17 12/31/17 15:49 09:58 04:33 POC Glucose 95 90 95 12/30/17 22:08 POC Glucose 98 Phys Exam - Physical Examination Cardiovascular: RRR, no significant murmur, no rub, gallop, irregular Gastrointestinal: soft, positive bowel sounds peg tube placed Musculoskeletal: edema present Deviation from normal: maculapapular rash all over Dx/Plan (1) Rash Code(s): R21 - RASH AND OTHER NONSPECIFIC SKIN ERUPTION Status: Acute (2) ICH (intracerebral hemorrhage) Code(s): I61.9 - NONTRAUMATIC INTRACEREBRAL HEMORRHAGE, UNSPECIFIED Status: Acute Comment: S/ P craniotomy and drain placement (3) Status post craniectomy Code(s): Z98.890 - OTHER SPECIFIED POSTPROCEDURAL STATES Status: Acute (4) UTI (urinary tract infection) Status: Acute - Plan pt on scott/zyvox per pulm, recommend deesclating abx -: pt went for gastrostomy tube eval which indicated fistula -: rash has mild improvement * . Review of Systems - Review of Systems Other: unable to obtain - Medications/Allergies Allergies/Adverse Reactions: Allergies Allergy/AdvReac Type Severity Reaction Status Date / Time codeine Allergy Verified 12/25/17 23:29 Medications: Current Medications Acetaminophen (Tylenol) 650 mg PO Q4H PRN PRN Reason: Headache/Fever/Mild Pain (1-3) Last Admin: 12/29/17 23:48 Dose: 650 mg Albuterol/Ipratropium (Duoneb) 3 ml NEB QID-RT REPLACED BY [facility] Last Admin: 12/31/17 14:25 Dose: 3 ml Bisacodyl (Dulcolax) 10 mg PO DAILYPRN PRN PRN Reason: Constipation Dextrose/Water (Dextrose 50%) 25 gm IVP PRN PRN PRN Reason: HYPOGLYCEMIA PROTOCOL Diphenhydramine HCl (Benadryl) 25 mg IVP Q6H PRN PRN Reason: Itching & Insomnia Last Admin: 12/31/17 09:49 Dose: 25 mg Glucagon (Glucagon) 1 mg IM PRN PRN PRN Reason: HYPOGLYCEMIA PROTOCOL Glycopyrrolate (Robinul) 1 mg PER TUBE TID REPLACED BY [facility] Last Admin: 12/31/17 14:23 Dose: Not Given Hydrocortisone/Aloe (Hydrocortisone 1% Cream) 1 gm TOP DAILY REPLACED BY [facility] Last Admin: 12/31/17 08:21 Dose: 1 applic Hydroxyzine HCl (Atarax) 50 mg PER TUBE QIDPRN PRN PRN Reason: Itching Last Admin: 12/29/17 21:59 Dose: 50 mg Sodium Chloride (Normal Saline 0.9%) 1,000 mls @ 50 mls/hr IV .Q20H REPLACED BY [facility] Last Admin: 12/31/17 18:14 Dose: 1,000 mls Insulin Glargine 10 units/ (Miscellaneous Medication) 0.1 mls @ 0 mls/hr SC QAM REPLACED BY [facility] Last Admin: 12/31/17 08:13 Dose: Not Given Dextrose/Water (D5w) 1,000 mls @ 0 mls/hr IV INF PRN PRN Reason: HYPOGLYCEMIA PROTOCOL Linezolid 600 mg/ Device 300 mls @ 150 mls/hr IVPB 0100,1300 REPLACED BY [facility] Last Admin: 12/31/17 14:20 Dose: 300 mls Meropenem 2 gm/ Miscellaneous Medication 1 each/ Sodium Chloride 100 mls @ 200 mls/hr IVPB Q8HR REPLACED BY [facility] Last Admin: 12/31/17 14:24 Dose: 100 mls Potassium Chloride 40 meq/ (Sodium Chloride) 270 mls @ 135 mls/hr IVPB ASDIR PRN PRN Reason: FOR SERUM K+ 2.5 - 3.5 Potassium Chloride 40 meq/ (Device) 100 mls @ 50 mls/hr IVPB ASDIR PRN PRN Reason: FOR SERUM K+ 2.5 - 3.5 Last Admin: 12/31/17 08:17 Dose: 100 mls Magnesium Sulfate 1 gm/ Sodium (Chloride) 102 mls @ 102 mls/hr IV PRN PRN PRN Reason: MAG LEVEL 1.4 - 2.0 Magnesium Sulfate 2 gm/ Device 100 mls @ 100 mls/hr IVPB ASDIR PRN PRN Reason: MAGNESIUM < 1.4 Potassium Phosphate 9 mmol/ (Sodium Chloride) 103 mls @ 25.75 mls/hr IVPB ASDIR PRN PRN Reason: Phosphate 1.0-1.8 Potassium Phosphate 12 mmol/ (Sodium Chloride) 254 mls @ 63.5 mls/hr IV ASDIR PRN PRN Reason: Serum phosphate 0.5-0.9 Potassium Phosphate 15 mmol/ (Sodium Chloride) 255 mls @ 63.75 mls/hr IV ASDIR PRN PRN Reason: Serum Phos < 0.5 Levetiracetam 1,000 mg/ Device 100 mls @ 200 mls/hr IVPB BID REPLACED BY [facility] Last Admin: 12/31/17 08:19 Dose: 100 mls Insulin Human Regular (Humulin R) 0 units SC .MILD SLIDING PRN; Protocol PRN Reason: MILD SLIDING SCALE Labetalol HCl (Normodyne) 10 mg SLOW IVP Q2H PRN PRN Reason: SBP >160 Lisinopril (Zestril) 5 mg PO DAILY REPLACED BY [facility] Last Admin: 12/31/17 07:45 Dose: Not Given Magnesium Oxide (Magnesium Oxide) 400 mg PO BIDPRN PRN PRN Reason: FOR SERUM MAG 1.4 - 2.0 Magnesium Oxide (Magnesium Oxide) 800 mg PO PRN PRN PRN Reason: FOR SERUM MAG < 1.4 Miscellaneous Medication (Phos-Nak) 1 pkt PO TIDPRN PRN PRN Reason: FOR PHOS LEVEL 1.0 - 1.8 Miscellaneous Medication (Phos-Nak) 2 pkt PO TIDPRN PRN PRN Reason: FOR PHOS LEVEL 0.5 - 1.0 Ccu Electrolyte (Replacement Protocol) 0 each FS PRN PRN PRN Reason: FOR ELECTROLYTE REPLACEMENT Ondansetron HCl (Zofran) 4 mg IVP Q8H PRN PRN Reason: Nausea/Vomiting Pantoprazole Sodium (Protonix) 40 mg PER TUBE DAILY REPLACED BY [facility] Last Admin: 12/31/17 07:45 Dose: Not Given Potassium Chloride (K-Dur) 40 meq PO ASDIR PRN PRN Reason: FOR SERUM K+ 2.5 - 3.5 Potassium Chloride (Klor-Con) 40 meq PER TUBE ASDIR PRN PRN Reason: FOR SERUM K+ 2.5-3.5 Scopolamine (Transderm Scop) 1.5 mg TOP Q3D REPLACED BY [facility] Last Admin: 12/29/17 11:57 Dose: 1.5 mg Sodium Chloride (Flush - Normal Saline) 10 ml IVF PRN PRN PRN Reason: Saline Flush Sodium Chloride (Flush - Normal Saline) 10 ml IVF Q12HR REPLACED BY [facility] Last Admin: 12/31/17 08:22 Dose: 10 ml Sodium Chloride (Flush - Normal Saline) 10 ml IVF PRN PRN PRN Reason: Saline Flush
--- NOTE | 2017-12-31 23:33 | PRG ---
DATE OF SERVICE: 12/31/2017 SUBJECTIVE: Brigida Norwood is in the ICU. She is on the ventilator. She was transferred back from LT[facility] on 12/25/2017. Neurosurgery service with hospitalist and critical care consultation. The maryann ent was admitted, because of altered mental status and swelling at the right craniectomy site. She i s status post right side decompressive hemicraniectomy for right frontoparietal hemorrhage and status post coiling of MCA aneurysm with Dr. Jeong on 11/20/2017 and 11/24/2017. She has significant hydro cephalus and has undergone a ventriculostomy with drains. Patient had an initial PEG tube placed els [facility]. I initially saw her 12/01/2017 for a dislodged PEG tube and she underwent laparoscopy with c losure of the old gastrostomy tube site laparoscopically and placement of a new PEG tube. At that ti me, it was recommended that she undergo bolus feedings to prevent her from dislodging her PEG tube, a s she tends to grab at things and has to be restrained. Apparently, she was changed to continuous fe edings leaving her feeding tube more amenable to dislodgement. Over the holidays, Dr. Guillaume galarza saw her in my absence and there was some dysfunction of her feeding tube. Radiology performed studies and it is apparently not in the stomach. The feeding tube at the bedside was removed on my visit today. There was egress of fluid from the Gastrografin study today. I have called the patient 's family and told them that she will need a new PEG tube if we are to continue care. She had questi ons about patient's prognosis, which I have deferred to Neurosurgery. OBJECTIVE: VITAL SIGNS: Temperature 99.8 degrees, blood pressure 123/89, heart rate 93. LUNGS: Clear to auscultation. CARDIAC: Regular rate and rhythm. ABDOMEN: Soft. PEG tube removed. LABORATORY DATA: White count 8, hemoglobin 8.7. ASSESSMENT AND PLAN: Dislodged PEG tube for the second time. If continued care is planned, then we would place a new PEG tube and she should be kept on bolus feedings to minimize the risk of tube disl odgement. Binder shoulder be kept sequestering the PEG tube away from her grasp. If she has another CAT scan of her brain by Neurosurgery, we would consider CAT scan of the abdomen and pelvis to evalu ate abdominal cavity and a dislodged PEG tube, which was removed today.
[2018-01-01] MEDS: Linezolid 600 MG in Premix Bag 1 BAG IVPB SCH (02:01)
[2018-01-01] MEDS: Meropenem 2 GM, Admixture Fee 1 EACH in Sodium Chloride 0.9% 100 ML IVPB SCH (05:12)
[2018-01-01 05:18] LABS: #Basophils 0.1 thou/uL (0.0-0.2); #Eosinphils 0.8 thou/uL (0.0-0.7); #Lymphocytes 1.4 thou/uL (1.20-3.40); #Monocytes 0.6 thou/uL (0.11-0.59); #Neutrophils 6.8 thou/uL (1.40-6.50); %Basophils 0.6 % (0.0-1.0); %Eosinophils 8.5 % (0.0-10.0); %Lymphocytes 14.8 % (21.0-51.0); %Monocytes 5.7 % (0.0-10.0); %Neutrophils 70.4 % (42.0-75.0); Mean Corpuscular HGB CONC 32.4 g/dL (32.0-36.0); Mean Corpuscular Hemoglobin 30.2 pg (27.0-31.0); Mean Corpuscular Volume 93.3 fL (78.0-98.0); Mean Platelet Volume 6.7 fL (7.4-10.4); Platelet Count 485 thou/uL (130-400); RBC Distribution Width 15.3 % (11.5-14.5); Red Blood Cell (RBC) Count 2.63 mill/uL (4.20-5.40); White Blood Cell (WBC) Count 9.7 thou/uL (4.8-10.8)
[2018-01-01 05:39] LABS: Anion Gap 12 mmol/L (10-20); BUN (Urea Nitrogen) 10 mg/dL (7.0-18.7); Calc. Creatinine Clearance 201 mL/min (70-130); Calcium 8.4 mg/dL (7.8-10.44); Carbon Dioxide 24 mmol/L (22-29); Chloride 100 mmol/L (98-107); Estimated GFR-MDRD Greater than 90; Glucose 103 mg/dL (70-105); Magnesium 1.9 mg/dL (1.6-2.6); Potassium 3.6 mmol/L (3.5-5.1); Sodium 132 mmol/L (136-145)
[2018-01-01 05:44] LABS: Phosphorus 2.4 mg/dL (2.3-4.7)
[2018-01-01] MEDS: Glycopyrrolate 1 MG TAB PER TUBE SCH ×3 (07:36→20:38)
--- NOTE | 2018-01-01 07:57 | PRG ---
DATE OF SERVICE: 01/01/2018 The patient remains in the CCU. Her PEG tube was apparently dislodged and is eventually going to nec essitate replacement. PHYSICAL EXAMINATION: VITAL SIGNS: At the current time her temperature is 98.7, pulse 84, blood pressure 114/70, O2 satura tion 100%, 24-hour intake 1473, output 1349. HEENT: Unremarkable. NECK: Without adenopathy, JVD, or bruits. LUNGS: Clear anteriorly. CARDIOVASCULAR: S1, S2 regular. ABDOMEN: Soft, obese. EXTREMITIES: No edema. LABORATORY DATA: White blood cell count 9.7, hematocrit 24.6, platelet count 485. Sodium 132, potas sium 3.6, chloride 100, CO2 24, BUN 10, creatinine 0.5, glucose 103. ASSESSMENT: 1. Status post EVD placement for hydrocephalus. 2. Fever felt secondary to peritonitis. 3. Diffuse rash. PLAN: 1. Continue antibiotics. 2. I think we can go ahead and stop the Zyvox since no Staph has grown out. 3. Await PEG tube replacement.
[2018-01-01] MEDS: levETIRAcetam In NaCl (Iso-Os) 1,000 MG in Premix Bag 1 BAG IVPB SCH ×2 (10:27→21:08)
[2018-01-01] MEDS: Insulin Glargine 10 UNITS in Pre-Filled Syringe 1 EACH SC SCH (10:29)
[2018-01-01] MEDS: Hydrocortisone 1% Cream 30 GM TUBE TOP SCH (10:29)
[2018-01-01] MEDS: Lisinopril 5 MG TAB PO SCH (10:30)
[2018-01-01] MEDS: Pantoprazole 40 MG VIAL IVP SCH (10:32)
[2018-01-01] MEDS: Scopolamine 1.5 mg/72 hour Patch TOP SCH (10:39)
[2018-01-01] MEDS: Pantoprazole 40 MG GRANULES PACKET PER TUBE SCH (11:00)
[2018-01-01] MEDS: Cefepime 1 GM in Sodium Chloride 0.9% 100 ML IVPB SCH ×2 (15:11→21:39)
[2018-01-01] MEDS: Sodium Chloride 0.9% 1,000 ML IV SCH (15:12)
[2018-01-01 15:45] LABS: Anion Gap 15 mmol/L (10-20); BUN (Urea Nitrogen) 10 mg/dL (7.0-18.7); Calc. Creatinine Clearance 209 mL/min (70-130); Calcium 8.2 mg/dL (7.8-10.44); Carbon Dioxide 21 mmol/L (22-29); Chloride 104 mmol/L (98-107); Estimated GFR-MDRD Greater than 90; Glucose 88 mg/dL (70-105); Potassium 3.6 mmol/L (3.5-5.1); Sodium 136 mmol/L (136-145)
--- NOTE | 2018-01-01 19:09 | PRG ---
DATE OF SERVICE: 01/01/2018 SUBJECTIVE: Ms. Norwood is not very responsive. She does not open her eyes. She does not follow commands. OBJECTIVE: VITAL SIGNS: Showed T-max 99.8, blood pressure 126/89, respiratory rate 24, and O2 saturations 99%. GENERAL: Trach collar, keeps her eyes closed. SKIN: The erythematous skin changes are markedly improved. She has a percutaneous ventriculostomy device. NECK: Supple. LUNGS: Symmetrical HEART: S1, S2, regular rate. ABDOMEN: Soft. DIAGNOSTIC STUDIES: White cell count 9.7, hemoglobin 8, platelets 485. Creatinine 0.51. Microbiology with Pseudomonas aeruginosa and another gram negative jin, and cultures showed resistance to meropenem. ASSESSMENT AND DISCUSSION: 1. Hypertension. 2. Asthma. 3. Brain aneurysm with hemorrhage, craniectomy and clipping of the aneurysm and now with erythematous eruption likely drug eruption either Zosyn or phenytoin, with fever which is improving after discontinuation of medication. She also has abnormal urinalysis with positive cultures and we will switch her to cefepime from meropenem. She also has displacement of the G-tube and looks like replacement will be not be feasible except for a surgical intervention so Dr. Huber is working on that. It is likely that the fever was secondary to the hypersensitivity reaction rather than infectious complication. Job ID: [id number] [facility]
--- NOTE | 2018-01-01 19:45 | PRG ---
DATE OF SERVICE: 12/31/2017 Ms. Norwood is a 47-year-old female, known to me for an emergent hemicraniectomy and coiling of a right MCA bifurcation region aneurysm, which took place approximately 1 month ago. She presented this past week in my absence with neurological decline and CT evidence for hydrocephalus. A ventriculostomy catheter was placed and her neurologic exam has slowly improved. This morning, I went to meet her and she was down for a procedure. I did however have a lengthy conversation with her family members to discuss the neurosurgical plan. My preference would be to continue with drainage until the ventricular cavity improves in size. Hopefully, at that point in time, we can both return the bone flap as well as place a ventriculoperitoneal shunt. We will also need to ensure there is no infection in the peritoneal cavity from her PEG tube or in the skin around it. I informed the family I do not anticipate any surgical procedure to take place this week from the neurosurgical perspective. We will continue to treat her rash and appropriate PEG tube issues per General Surgery. I planned to repeat a CT examination toward the latter part of this week. Job ID: [id number] [facility]
--- NOTE | 2018-01-01 21:37 | RAD ---
KUB: 01/01/18 COMPARISON: 12/30/17. HISTORY: Check nasogastric tube placement. FINDINGS: Nasogastric tube extends into left upper quadrant, likely in the region of the gastric fundus. There is contrast media within the colon. IMPRESSION: Nasogastric tube as above. POS: WINIFRED
[2018-01-01] MEDS: diphenhydrAMINE 50 MG/ML VIAL IVP PRN (22:42)
[2018-01-02 04:58] LABS: Phosphorus 2.3 mg/dL (2.3-4.7)
[2018-01-02 05:00] LABS: Anion Gap 12 mmol/L (10-20); BUN (Urea Nitrogen) 9 mg/dL (7.0-18.7); Calc. Creatinine Clearance 194 mL/min (70-130); Calcium 8.3 mg/dL (7.8-10.44); Carbon Dioxide 23 mmol/L (22-29); Chloride 105 mmol/L (98-107); Estimated GFR-MDRD Greater than 90; Glucose 91 mg/dL (70-105); Magnesium 2.2 mg/dL (1.6-2.6); Potassium 3.4 mmol/L (3.5-5.1); Sodium 137 mmol/L (136-145)
[2018-01-02] MEDS: Cefepime 1 GM in Sodium Chloride 0.9% 100 ML IVPB SCH ×3 (05:35→21:42)
--- NOTE | 2018-01-02 06:18 | PDOC.PN ---
- Subjective Encounter Start Date: 01/01/18 Encounter Start Time: 10:00 Subjective: pt trached, nonverbal - Objective Resuscitation Status - Order Detail: 01/01/18 12:06 Resuscitation Status Routine Resuscitation Status: FULL: Full Resuscitation Discussed with: per previous order Vital Signs & Weight: Vital Signs (12 hours) Temp Pulse Resp Pulse Ox 01/02/18 04:00 98.2 F 01/02/18 02:29 98 01/02/18 00:00 99.4 F 01/01/18 20:00 99.3 F 01/01/18 19:40 100 01/01/18 18:17 117 H 26 H 100 Weight Admit Weight 214 lb 8.015 oz Weight 209 lb 14.081 oz Most Recent Monitor Data Heart Rate from ECG 66 NIBP 131/78 NIBP BP-Mean 95 Respiration from ECG 14 SpO2 100 I&O: 12/31/17 01/01/18 01/02/18 06:59 06:59 06:59 Intake Total 2337 1473 200 Output Total 1814 1349 1742 Balance 523 124 -1542 Result Diagrams: 01/01/18 04:30 01/02/18 04:25 Additional Labs: Accuchecks 01/02/18 01/01/18 01/01/18 04:29 23:31 17:49 POC Glucose 80 85 82 01/01/18 10:55 POC Glucose 86 Phys Exam - Physical Examination mild rhonchi all over lungs Cardiovascular: RRR, no significant murmur, no rub, gallop, irregular Gastrointestinal: soft, non-tender, no distention, positive bowel sounds Deviation from normal: maculapapular rash improving Dx/Plan (1) Rash Code(s): R21 - RASH AND OTHER NONSPECIFIC SKIN ERUPTION Status: Acute (2) ICH (intracerebral hemorrhage) Code(s): I61.9 - NONTRAUMATIC INTRACEREBRAL HEMORRHAGE, UNSPECIFIED Status: Acute Comment: S/ P craniotomy and drain placement (3) Status post craniectomy Code(s): Z98.890 - OTHER SPECIFIED POSTPROCEDURAL STATES Status: Acute (4) UTI (urinary tract infection) Status: Acute - Plan DVT proph w/lovenox scott/zyvox discontined and pt is on cefepime -: surgery consulted for new peg tube placement * . Review of Systems - Review of Systems Other: unable to obtain - Medications/Allergies Allergies/Adverse Reactions: Allergies Allergy/AdvReac Type Severity Reaction Status Date / Time codeine Allergy Verified 12/25/17 23:29 Medications: Current Medications Acetaminophen (Tylenol) 650 mg PO Q4H PRN PRN Reason: Headache/Fever/Mild Pain (1-3) Last Admin: 12/29/17 23:48 Dose: 650 mg Albuterol/Ipratropium (Duoneb) 3 ml NEB QID-RT [facility] Last Admin: 01/01/18 18:17 Dose: 3 ml Bisacodyl (Dulcolax) 10 mg PO DAILYPRN PRN PRN Reason: Constipation Dextrose/Water (Dextrose 50%) 25 gm IVP PRN PRN PRN Reason: HYPOGLYCEMIA PROTOCOL Diphenhydramine HCl (Benadryl) 25 mg IVP Q6H PRN PRN Reason: Itching & Insomnia Last Admin: 01/01/18 22:42 Dose: 25 mg Glucagon (Glucagon) 1 mg IM PRN PRN PRN Reason: HYPOGLYCEMIA PROTOCOL Glycopyrrolate (Robinul) 1 mg PER TUBE TID [facility] Last Admin: 01/01/18 20:38 Dose: Not Given Hydrocortisone/Aloe (Hydrocortisone 1% Cream) 1 gm TOP DAILY [facility] Last Admin: 01/01/18 10:29 Dose: 1 applic Hydroxyzine HCl (Atarax) 50 mg PER TUBE QIDPRN PRN PRN Reason: Itching Last Admin: 12/29/17 21:59 Dose: 50 mg Sodium Chloride (Normal Saline 0.9%) 1,000 mls @ 50 mls/hr IV .Q20H [facility] Last Admin: 01/01/18 15:12 Dose: 1,000 mls Insulin Glargine 10 units/ (Miscellaneous Medication) 0.1 mls @ 0 mls/hr SC QAM [facility] Last Admin: 01/01/18 10:29 Dose: Not Given Dextrose/Water (D5w) 1,000 mls @ 0 mls/hr IV INF PRN PRN Reason: HYPOGLYCEMIA PROTOCOL Potassium Chloride 40 meq/ (Sodium Chloride) 270 mls @ 135 mls/hr IVPB ASDIR PRN PRN Reason: FOR SERUM K+ 2.5 - 3.5 Potassium Chloride 40 meq/ (Device) 100 mls @ 50 mls/hr IVPB ASDIR PRN PRN Reason: FOR SERUM K+ 2.5 - 3.5 Last Admin: 12/31/17 08:17 Dose: 100 mls Magnesium Sulfate 1 gm/ Sodium (Chloride) 102 mls @ 102 mls/hr IV PRN PRN PRN Reason: MAG LEVEL 1.4 - 2.0 Last Admin: 01/01/18 10:26 Dose: 102 mls Magnesium Sulfate 2 gm/ Device 100 mls @ 100 mls/hr IVPB ASDIR PRN PRN Reason: MAGNESIUM < 1.4 Potassium Phosphate 9 mmol/ (Sodium Chloride) 103 mls @ 25.75 mls/hr IVPB ASDIR PRN PRN Reason: Phosphate 1.0-1.8 Potassium Phosphate 12 mmol/ (Sodium Chloride) 254 mls @ 63.5 mls/hr IV ASDIR PRN PRN Reason: Serum phosphate 0.5-0.9 Potassium Phosphate 15 mmol/ (Sodium Chloride) 255 mls @ 63.75 mls/hr IV ASDIR PRN PRN Reason: Serum Phos < 0.5 Levetiracetam 1,000 mg/ Device 100 mls @ 200 mls/hr IVPB BID [facility] Last Admin: 01/01/18 21:08 Dose: 100 mls Cefepime HCl 1 gm/ Sodium (Chloride) 100 mls @ 200 mls/hr IVPB Q8HR [facility] Last Admin: 01/02/18 05:35 Dose: 100 mls Insulin Human Regular (Humulin R) 0 units SC .MILD SLIDING PRN; Protocol PRN Reason: MILD SLIDING SCALE Labetalol HCl (Normodyne) 10 mg SLOW IVP Q2H PRN PRN Reason: SBP >160 Lisinopril (Zestril) 5 mg PO DAILY [facility] Last Admin: 01/01/18 10:30 Dose: Not Given Magnesium Oxide (Magnesium Oxide) 400 mg PO BIDPRN PRN PRN Reason: FOR SERUM MAG 1.4 - 2.0 Magnesium Oxide (Magnesium Oxide) 800 mg PO PRN PRN PRN Reason: FOR SERUM MAG < 1.4 Miscellaneous Medication (Phos-Nak) 1 pkt PO TIDPRN PRN PRN Reason: FOR PHOS LEVEL 1.0 - 1.8 Miscellaneous Medication (Phos-Nak) 2 pkt PO TIDPRN PRN PRN Reason: FOR PHOS LEVEL 0.5 - 1.0 Ccu Electrolyte (Replacement Protocol) 0 each FS PRN PRN PRN Reason: FOR ELECTROLYTE REPLACEMENT Ondansetron HCl (Zofran) 4 mg IVP Q8H PRN PRN Reason: Nausea/Vomiting Pantoprazole Sodium (Protonix) 40 mg IVP DAILY [facility] Last Admin: 01/01/18 10:32 Dose: 40 mg Potassium Chloride (K-Dur) 40 meq PO ASDIR PRN PRN Reason: FOR SERUM K+ 2.5 - 3.5 Potassium Chloride (Klor-Con) 40 meq PER TUBE ASDIR PRN PRN Reason: FOR SERUM K+ 2.5-3.5 Scopolamine (Transderm Scop) 1.5 mg TOP Q3D [facility] Last Admin: 01/01/18 10:39 Dose: 1.5 mg Sodium Chloride (Flush - Normal Saline) 10 ml IVF PRN PRN PRN Reason: Saline Flush Sodium Chloride (Flush - Normal Saline) 10 ml IVF Q12HR [facility] Last Admin: 01/01/18 21:09 Dose: 10 ml Sodium Chloride (Flush - Normal Saline) 10 ml IVF PRN PRN PRN Reason: Saline Flush Sodium Chloride (Flush - Normal Saline) 10 ml IV DAILY [facility] Last Admin: 01/01/18 10:39 Dose: 10 ml
[2018-01-02] MEDS: Glycopyrrolate 1 MG TAB PER TUBE SCH ×3 (07:51→20:47)
[2018-01-02] MEDS: Insulin Glargine 10 UNITS in Pre-Filled Syringe 1 EACH SC SCH (08:22)
[2018-01-02] MEDS: Lisinopril 5 MG TAB PO SCH (08:22)
[2018-01-02] MEDS: Hydrocortisone 1% Cream 30 GM TUBE TOP SCH (08:22)
[2018-01-02] MEDS: levETIRAcetam In NaCl (Iso-Os) 1,000 MG in Premix Bag 1 BAG IVPB SCH ×2 (08:51→20:47)
[2018-01-02] MEDS: Pantoprazole 40 MG VIAL IVP SCH (08:51)
--- NOTE | 2018-01-02 09:52 | PRG ---
DATE OF SERVICE: 01/02/2018 SUBJECTIVE: The patient remains in ICU. She appears to be about the same as she has been. OBJECTIVE: VITAL SIGNS: On exam, temperature 98.9, pulse 73, blood pressure 128/72. A 24-hour intake 893, output 1933. HEENT: Remarkable for swelling in her head on the right side. NECK: There is a tracheostomy in place. LUNGS: Clear CARDIAC: S1, S2. Slightly tachycardiac. ABDOMEN: Soft, mildly tender to palpation. EXTREMITIES: No edema. LABORATORY DATA: Sodium 137, potassium 3.4, chloride 105, CO2 of 23, BUN 9, creatinine 0.5, and glucose 91. ASSESSMENT: 1. Post external ventricular drain placement for hydrocephalus. 2. Fever, which is probably secondary to peritonitis. 3. Diffuse rash, which is probably from dilantin. 4. Previous aneurysmal bleed in the head. 5. Dislodged PEG tube. PLAN: 1. She is continuing antibiotic coverage with cefepime. Dr. Villegas is managing her antibiotics. 2. Respiratory status is stable. 3. She will remain in the ICU while she has the EVD drain in place. Job ID: [id number]
[2018-01-02] MEDS: Potassium Chloride 40 MEQ in Premix Bag 1 BAG IVPB PRN (10:31)
[2018-01-02] MEDS: Sodium Chloride 0.9% 1,000 ML IV SCH (10:32)
--- NOTE | 2018-01-02 11:38 | PRG ---
DATE OF SERVICE: 01/01/2018 SUBJECTIVE: Brigida Norwood is doing well today. She is on a trach collar and that she uses still. She has an external ventricular drain. Notes from Dr. Tracey in Neurosurgery suggest considering a future CAT scan and a possibility of craniectomy flap replacement and SVP OF DIGITAL shunt placement. The patient has a dislodged PEG tube. Her abdomen is soft and nontender. OBJECTIVE: VITAL SIGNS: Heart rate 73, respiratory rate 24 to 26, blood pressure 126/89. LUNGS: Clear to auscultation, no wheezing. CARDIAC: Regular rate and rhythm. ABDOMEN: Soft and nontender. Left upper quadrant PEG site draining clear fluid, nonbilious. ASSESSMENT AND PLAN: Dislodged PEG tube. She will need a new PEG tube, probably going back to LTAC. Considering the possibility of ventriculoperitoneal shunt placement and the intraabdominal problems related to her dislodged PEG tube x2, we would recommend a CT scan of the abdomen and pelvis to evaluate the abdomen, considering future SVP OF DIGITAL shunt placement considerations and considering PEG tube replacement. PLAN: 1. PEG tube replacement later in the week, may be able to coordinate with Neurosurgery whenever they are planning their operative interventions. She may need laparoscopic-assisted SVP OF DIGITAL shunt placement. 2. Whenever the PEG tube is replaced, she should be on bolus feedings to be able to sequester the PEG tube under an abdominal binder to keep her from dislodging it and from it being dislodged during her mobility and turning. Job ID: [id number]
[2018-01-02] MEDS: diphenhydrAMINE 50 MG/ML VIAL IVP PRN (12:19)
--- NOTE | 2018-01-02 12:20 | CT ---
CT ABDOMEN AND PELVIS WITH CONTRAST: Technique: Multiple contiguous axial images were obtained through the abdomen and pelvis with IV enha ncement. Oral contrast was administered. Indications: Follow up PEG tube dislodgement. Correlation made to fluoroscopic procedure, 12-31-17 ich showed a fistulous tract from an indwelling PEG tube which was removed. FINDINGS: Lung bases clear. Liver, spleen, and pancreas unremarkable. Patient is post cholecystectomy. Stomach is opacified and a ppears unremarkable. Duodenum unremarkable. Small bowel loops unremarkable. Colon unremarkable. Pelvic structures unremarkable. Ortega catheter is in place. Urinary bladder is contracted. No adenopa thy or mass in the abdomen or pelvis. No free fluid or localized fluid collection in the abdomen or p bernadette. There is increased density in the anterior abdominal wall, left of midline in the upper midabdomen at the site of the previously described PEG tube. There appears to be tiny gas pockets present, consist ent with recent procedure. No localized fluid or abscess collection. This density in the anterior abd ominal wall measures approximately 3 cm thickness in the axial plane. It is not fluid dense, but a lo calized complex fluid or abscess collection cannot be excluded by CT. IMPRESSION: 1. Abnormal density along the anterior abdominal wall in the subcutaneous tissues measuring up to 3 c m thickness. This is somewhat heterogeneous and there are tiny air pockets present. Densities do not suggest a simple fluid collection. A complex fluid or abscess collection or possibly hematoma, are co nsiderations. POS: [facility]
[2018-01-02] MEDS: Labetalol HCl 100 MG/20 ML VIAL SLOW IVP PRN (14:15)
--- NOTE | 2018-01-02 22:25 | PRG ---
DATE OF SERVICE: 01/02/2018 SUBJECTIVE: I examined Ms. Norwood in her ICU room this morning. She exerts spontaneous movements, but did not follow commands for me today. I examined her scalp wound which remains intact. It is still protuberant and it appears to have a fairly significant subgaleal spinal fluid collection present. A ventriculostomy is set at 5 cm of water and is patent and is draining. She underwent a CT examination of the abdomen today, the results of which are pending. She continues to receive antibiotics. PLAN: From a neurosurgical surgical perspective, we will perform a CT examination either tomorrow or Sunday. She is in need of ventriculoperitoneal shunt. If there is evidence of subcutaneous infection along the abdominal wall, this will delay our ability to place the shunt. I have also updated the family. Job ID: [id number] MTDD
--- NOTE | 2018-01-02 23:23 | PRG ---
DATE OF SERVICE: 01/02/2018 SUBJECTIVE: Brigida Norwood is unchanged today. She is agitated. Heart rate 86, blood pressure 151/84. No laboratories today. Lytes; sodium 137, potassium 3.4. OBJECTIVE: LUNGS: Clear to auscultation. CARDIAC: Regular rate and rhythm without murmur or gallop. ABDOMEN: Soft. CAT scan of abdomen and pelvis p.o. and IV contrast today reveals some soft tissue changes about the abdominal wall at the old PEG tube site, but there is no evidence of leak or fistula tract. There is nothing intraabdominally, only soft tissue changes. At this point, we will recommend to continue wound care. She will need a new PEG tube. We will discuss with Dr. Ted Jeong the timing of this. In the meantime, we can start tube feedings per NG tube. Job ID: [id number]
[2018-01-03] MEDS: diphenhydrAMINE 50 MG/ML VIAL IVP PRN ×2 (00:28→20:56)
[2018-01-03 05:35] LABS: Phosphorus 2.3 mg/dL (2.3-4.7)
[2018-01-03 05:36] LABS: Anion Gap 14 mmol/L (10-20); BUN (Urea Nitrogen) 6 mg/dL (7.0-18.7); Calc. Creatinine Clearance 198 mL/min (70-130); Calcium 8.4 mg/dL (7.8-10.44); Carbon Dioxide 24 mmol/L (22-29); Chloride 102 mmol/L (98-107); Estimated GFR-MDRD Greater than 90; Glucose 91 mg/dL (70-105); Potassium 3.7 mmol/L (3.5-5.1); Sodium 136 mmol/L (136-145)
[2018-01-03] MEDS: Cefepime 1 GM in Sodium Chloride 0.9% 100 ML IVPB SCH ×3 (06:16→21:25)
[2018-01-03] MEDS: Sodium Chloride 0.9% 1,000 ML IV SCH (06:18)
--- NOTE | 2018-01-03 09:16 | PRG ---
DATE OF SERVICE: 01/03/2018 SUBJECTIVE: The patient remains in the CCU with EVD in place with no acute changes overnight. OBJECTIVE: VITAL SIGNS: On exam, her temperature 99.1 with a T-max of 99.9, pulse 75, blood pressure 128/80, O2 saturation 100% on trach collar. HEENT: She has much less swelling in the right temporoparietal area. She still has periorbital edema. NECK: Tracheostomy in place. LUNGS: Clear. CARDIAC: S1 and S2, regular. ABDOMEN: Softer. EXTREMITIES: No edema. NEUROLOGIC: She is noted to be spontaneously moving her right side. LABORATORY DATA: Sodium 136, potassium 3.7, chloride 102, CO2 24, BUN 6, creatinine 0.5, and glucose 91. ASSESSMENT: No significant change in the patient's hospital course. See note for yesterday. PLAN: 1. At some point, she will need the PEG replaced. Also, the decision will be made about duration of the EVD versus internalizing a shunt. 2. Continuing IV cefepime. 3. Pulmonary/Critical Care will continue to follow while the patient is in the ICU. Job ID: [id number]
[2018-01-03] MEDS: Pantoprazole 40 MG VIAL IVP SCH (09:49)
[2018-01-03] MEDS: levETIRAcetam In NaCl (Iso-Os) 1,000 MG in Premix Bag 1 BAG IVPB SCH ×2 (09:49→20:54)
[2018-01-03] MEDS: Glycopyrrolate 1 MG TAB PER TUBE SCH ×3 (09:49→20:54)
[2018-01-03] MEDS: Lisinopril 5 MG TAB PO SCH (09:49)
[2018-01-03] MEDS: Hydrocortisone 1% Cream 30 GM TUBE TOP SCH (09:50)
--- NOTE | 2018-01-03 10:04 | PRG ---
DATE OF SERVICE: 01/03/2018 SUBJECTIVE: Ms. Norwood is in 9th day of her hospital stay following acute hydrocephalus and placement of an EVD. This morning, she still follows commands and spontaneously moves the right upper and right lower extremities. Still essentially hemiparetic in the left. She still has a rather protuberant skin flap on the right. [place] are intact. There is no wound breakdown no drainage or erythema around the wound site. She is on cefepime now scheduled around the clock. Her EVD remains set at 5 cm of water and maintains inconsistent CSF drainage at times anywhere from 5 to 10 an hour and other times none. Neurosurgery is perspective at this point to obtain a repeat head CT tomorrow morning and potentially plan for procedures thereafter. She is scheduled to go down tomorrow for a repeat PEG tube placement with Dr. Robledo. I will discuss with Job ID: [id number]
[2018-01-03] MEDS: Insulin Glargine 10 UNITS in Pre-Filled Syringe 1 EACH SC SCH (10:25)
--- NOTE | 2018-01-03 14:26 | PDOC.PN ---
- Subjective Encounter Start Date: 01/03/18 Encounter Start Time: 10:00 Subjective: pt trached - Objective Resuscitation Status - Order Detail: 01/01/18 12:06 Resuscitation Status Routine Resuscitation Status: FULL: Full Resuscitation Discussed with: per previous order Vital Signs & Weight: Vital Signs (12 hours) Temp Pulse Pulse Pulse Resp BP BP 01/03/18 12:00 99.6 F 01/03/18 11:00 80 18 01/03/18 10:00 100.6 F H 01/03/18 09:49 77 110/63 01/03/18 09:22 78 81 110/63 01/03/18 08:00 01/03/18 06:37 84 24 H 01/03/18 05:00 99.1 F BP Pulse Ox Pulse Ox Pulse Ox 01/03/18 12:00 01/03/18 11:00 100 01/03/18 10:00 01/03/18 09:49 01/03/18 09:22 117/63 100 100 01/03/18 08:00 100 01/03/18 06:37 100 01/03/18 05:00 Weight Admit Weight 214 lb 8.015 oz Weight 206 lb 12.697 oz Most Recent Monitor Data Heart Rate from ECG 79 NIBP 117/64 NIBP BP-Mean 81 Respiration from ECG 17 SpO2 100 I&O: 01/02/18 01/03/18 01/04/18 06:59 06:59 06:59 Intake Total 893 3092 270 Output Total 1933 2770 1057 Balance -1040 160 -787 Result Diagrams: 01/01/18 04:30 01/03/18 05:05 Additional Labs: Accuchecks 01/03/18 01/03/18 01/02/18 10:25 05:15 22:45 POC Glucose 86 96 89 01/02/18 16:27 POC Glucose 82 Phys Exam - Physical Examination mild rhonchi all over Cardiovascular: RRR, no significant murmur, no rub, gallop, irregular Gastrointestinal: soft, non-tender, no distention, positive bowel sounds Musculoskeletal: edema present Deviation from normal: significant improvement of rash Dx/Plan (1) Rash Code(s): R21 - RASH AND OTHER NONSPECIFIC SKIN ERUPTION Status: Acute (2) ICH (intracerebral hemorrhage) Code(s): I61.9 - NONTRAUMATIC INTRACEREBRAL HEMORRHAGE, UNSPECIFIED Status: Acute Comment: S/ P craniotomy and drain placement (3) Status post craniectomy Code(s): Z98.890 - OTHER SPECIFIED POSTPROCEDURAL STATES Status: Acute (4) UTI (urinary tract infection) Status: Acute - Plan rash improving -: pt to get a peg tube jaelyn per nurse -: on cefepime for uti * . Review of Systems - Review of Systems Other: unable to obtain - Medications/Allergies Allergies/Adverse Reactions: Allergies Allergy/AdvReac Type Severity Reaction Status Date / Time codeine Allergy Verified 12/25/17 23:29 Medications: Current Medications Acetaminophen (Tylenol) 650 mg PO Q4H PRN PRN Reason: Headache/Fever/Mild Pain (1-3) Last Admin: 12/29/17 23:48 Dose: 650 mg Albuterol/Ipratropium (Duoneb) 3 ml NEB QID-RT ALAN Last Admin: 01/03/18 11:00 Dose: 3 ml Bisacodyl (Dulcolax) 10 mg PO DAILYPRN PRN PRN Reason: Constipation Dextrose/Water (Dextrose 50%) 25 gm IVP PRN PRN PRN Reason: HYPOGLYCEMIA PROTOCOL Diphenhydramine HCl (Benadryl) 25 mg IVP Q6H PRN PRN Reason: Itching & Insomnia Last Admin: 01/03/18 00:28 Dose: 25 mg Glucagon (Glucagon) 1 mg IM PRN PRN PRN Reason: HYPOGLYCEMIA PROTOCOL Glycopyrrolate (Robinul) 1 mg PER TUBE TID ALAN Last Admin: 01/03/18 09:49 Dose: 1 mg Hydrocortisone/Aloe (Hydrocortisone 1% Cream) 1 gm TOP DAILY ALAN Last Admin: 01/03/18 09:50 Dose: 1 applic Hydroxyzine HCl (Atarax) 50 mg PER TUBE QIDPRN PRN PRN Reason: Itching Last Admin: 12/29/17 21:59 Dose: 50 mg Sodium Chloride (Normal Saline 0.9%) 1,000 mls @ 50 mls/hr IV .Q20H ALAN Last Admin: 01/03/18 06:18 Dose: 1,000 mls Dextrose/Water (D5w) 1,000 mls @ 0 mls/hr IV INF PRN PRN Reason: HYPOGLYCEMIA PROTOCOL Potassium Chloride 40 meq/ (Sodium Chloride) 270 mls @ 135 mls/hr IVPB ASDIR PRN PRN Reason: FOR SERUM K+ 2.5 - 3.5 Potassium Chloride 40 meq/ (Device) 100 mls @ 50 mls/hr IVPB ASDIR PRN PRN Reason: FOR SERUM K+ 2.5 - 3.5 Last Admin: 01/02/18 10:31 Dose: 100 mls Magnesium Sulfate 1 gm/ Sodium (Chloride) 102 mls @ 102 mls/hr IV PRN PRN PRN Reason: MAG LEVEL 1.4 - 2.0 Last Admin: 01/01/18 10:26 Dose: 102 mls Magnesium Sulfate 2 gm/ Device 100 mls @ 100 mls/hr IVPB ASDIR PRN PRN Reason: MAGNESIUM < 1.4 Potassium Phosphate 9 mmol/ (Sodium Chloride) 103 mls @ 25.75 mls/hr IVPB ASDIR PRN PRN Reason: Phosphate 1.0-1.8 Potassium Phosphate 12 mmol/ (Sodium Chloride) 254 mls @ 63.5 mls/hr IV ASDIR PRN PRN Reason: Serum phosphate 0.5-0.9 Potassium Phosphate 15 mmol/ (Sodium Chloride) 255 mls @ 63.75 mls/hr IV ASDIR PRN PRN Reason: Serum Phos < 0.5 Levetiracetam 1,000 mg/ Device 100 mls @ 200 mls/hr IVPB BID [facility] Last Admin: 01/03/18 09:49 Dose: 100 mls Cefepime HCl 1 gm/ Sodium (Chloride) 100 mls @ 200 mls/hr IVPB Q8HR [facility] Last Admin: 01/03/18 13:51 Dose: 100 mls Insulin Human Regular (Humulin R) 0 units SC .MILD SLIDING PRN; Protocol PRN Reason: MILD SLIDING SCALE Labetalol HCl (Normodyne) 10 mg SLOW IVP Q2H PRN PRN Reason: SBP >160 Last Admin: 01/02/18 14:15 Dose: 10 mg Lisinopril (Zestril) 5 mg PO DAILY [facility] Last Admin: 01/03/18 09:49 Dose: 5 mg Magnesium Oxide (Magnesium Oxide) 400 mg PO BIDPRN PRN PRN Reason: FOR SERUM MAG 1.4 - 2.0 Magnesium Oxide (Magnesium Oxide) 800 mg PO PRN PRN PRN Reason: FOR SERUM MAG < 1.4 Miscellaneous Medication (Phos-Nak) 1 pkt PO TIDPRN PRN PRN Reason: FOR PHOS LEVEL 1.0 - 1.8 Miscellaneous Medication (Phos-Nak) 2 pkt PO TIDPRN PRN PRN Reason: FOR PHOS LEVEL 0.5 - 1.0 Ccu Electrolyte (Replacement Protocol) 0 each FS PRN PRN PRN Reason: FOR ELECTROLYTE REPLACEMENT Ondansetron HCl (Zofran) 4 mg IVP Q8H PRN PRN Reason: Nausea/Vomiting Pantoprazole Sodium (Protonix) 40 mg IVP DAILY [facility] Last Admin: 01/03/18 09:49 Dose: 40 mg Potassium Chloride (K-Dur) 40 meq PO ASDIR PRN PRN Reason: FOR SERUM K+ 2.5 - 3.5 Potassium Chloride (Klor-Con) 40 meq PER TUBE ASDIR PRN PRN Reason: FOR SERUM K+ 2.5-3.5 Scopolamine (Transderm Scop) 1.5 mg TOP Q3D [facility] Last Admin: 01/01/18 10:39 Dose: 1.5 mg Sodium Chloride (Flush - Normal Saline) 10 ml IVF PRN PRN PRN Reason: Saline Flush Sodium Chloride (Flush - Normal Saline) 10 ml IVF Q12HR [facility] Last Admin: 01/03/18 09:49 Dose: 10 ml Sodium Chloride (Flush - Normal Saline) 10 ml IVF PRN PRN PRN Reason: Saline Flush Sodium Chloride (Flush - Normal Saline) 10 ml IV DAILY [facility] Last Admin: 01/03/18 09:50 Dose: 10 ml
--- NOTE | 2018-01-03 21:56 | PRG ---
DATE OF SERVICE: 01/03/2018 SUBJECTIVE: Ms. Norwood is neurologically unchanged. I have discussed with Dr. Ted jeong. The patient will have a CT scan of her brain tomorrow and plan TOOL CHASER shunt probably next week. Tomorrow, I will plan PEG tube, possibly laparoscopic assisted. She is on bolus feedings at this time. We will hold those after midnight. OBJECTIVE: LUNGS: Clear to auscultation. CARDIAC: Regular rate and rhythm without murmur or gallop. ABDOMEN: Soft, nontender. PEG site unchanged. LABORATORY DATA: White count 9, hemoglobin 8. ASSESSMENT AND PLAN: 1. Dislodged PEG tube x2. Continue bolus feedings once PEG tube is replaced. N.p.o. after midnight for PEG tube, possibly laparoscopic assisted, pending findings. We will plan probable TOOL CHASER shunt next week with cranial flap replacement pending CAT scan findings per Dr. Ted Jeong . 2. Discussed with family overall care. I have discussed with Dr. Ted Jeong. The patient will certainly require snf care probably the rest of her life at best, perhaps LTAC. Job ID: [id number]
[2018-01-04] MEDS: hydrOXYzine 25 MG TAB PER TUBE PRN (01:18)
[2018-01-04] MEDS: Sodium Chloride 0.9% 1,000 ML IV SCH (05:08)
[2018-01-04] MEDS: Cefepime 1 GM in Sodium Chloride 0.9% 100 ML IVPB SCH ×3 (05:08→21:04)
[2018-01-04 06:11] LABS: Anion Gap 11 mmol/L (10-20); BUN (Urea Nitrogen) 6 mg/dL (7.0-18.7); Calc. Creatinine Clearance 194 mL/min (70-130); Calcium 8.4 mg/dL (7.8-10.44); Carbon Dioxide 26 mmol/L (22-29); Chloride 105 mmol/L (98-107); Estimated GFR-MDRD Greater than 90; Glucose 90 mg/dL (70-105); Magnesium 2.1 mg/dL (1.6-2.6); Potassium 3.7 mmol/L (3.5-5.1); Sodium 138 mmol/L (136-145)
[2018-01-04 06:13] LABS: Phosphorus 2.9 mg/dL (2.3-4.7)
--- NOTE | 2018-01-04 08:13 | CT ---
PRELIMINARY REPORT/[facility]/EMERGENTY AFTER-HOURS PROCEDURE CT Head Without Intravenous Contrast EXAM DATE/TIME: 01/04/2018 4:07 AM CLINICAL HISTORY: 47 years old, female; Screening exam; Prior surgery; Patient HX: Serial examination hcp TECHNIQUE: Axial computed tomography images of the head/brain without intravenous contrast. COMPARISON: CT Brain WO Con 12/29/2017 11:28 AM FINDINGS: No definite acute skull fracture. Almost complete opacification of the sphenoid sinus, similar to prior exam. Included paranasal sinuses appear relatively clear. Changes of right craniectomy. As before, prominent bulging of brain tissue through the craniectomy site, similar to slightly less p rominent than on the prior exam. Few small scattered areas of hemorrhage are seen within the herniated brain parenchyma, right frontal /parietal region. This appear slightly more prominent than on the prior exam. Again, prominent low attenuation areas seen in the right frontal and parietal region, in the herniate d brain, and also in the right rancho, likely representing areas of developing subacute infarction. Pro bably no significant interval change in this appearance. No significant change in overall mass effect or midline shift. Left ventriculostomy catheter still present, crossing the midline, tip in the right lateral ventricle . Ventricle size has decreased in the interval, now appearing within normal limits. IMPRESSION: 1. Stable position of ventriculostomy catheter. 2. Lateral ventricle size has decreased, now within normal limits. 3. Postoperative changes of right craniectomy, with continued herniation of brain tissue, details abo ve. 4. Few small scattered areas of hemorrhage are seen within the herniated brain parenchyma, right fron samantha/parietal region. This appear slightly more prominent than on the prior exam. 5. Low attenuation areas in the right brain and rancho, likely represent areas developing subacute infa rct, similar to prior exam. 6. Other findings discussed above. Thank you for allowing us to participate in the care of your patient. Dictated and Authenticated by: Vaibhav Underwood MD 01/04/2018 4:44 AM Central Time ([place] & [place]) FINAL REPORT CT BRAIN WITHOUT CONTRAST: Date: 01/04/18 FINDINGS/IMPRESSION: I agree with the preliminary report given by Janet. POS: [facility]
--- NOTE | 2018-01-04 09:17 | PRG ---
DATE OF SERVICE: 01/04/2018 SUBJECTIVE: She is doing well, all things considered. OBJECTIVE: VITAL SIGNS: On exam, temperature 99.1 with a T-max of 100.1, pulse 88, blood pressure 126/73. HEENT: I do not see much herniation through her craniotomy space. NECK: Without adenopathy. No JVD. Trach is in good position. LUNGS: Clear. CARDIAC: S1 and S2, regular. ABDOMEN: Soft. EXTREMITIES: Generalized edema throughout. LABORATORY DATA: White blood cell count 9.7, hemoglobin 24.6, platelet count 45. Sodium 138, potassium 3.7, chloride 105, CO2 of 26, BUN 6, creatinine 0.5, and glucose 90. ASSESSMENT: The patient remains stable in the CCU on no drips or mechanical ventilation. She is basically here for her EVD device. PLAN: 1. Internalize shunt next week. 2. Eventual PEG tube replacement. 3. She is continuing antibiotics with cefepime per Dr. Villegas. Job ID: [id number]
[2018-01-04] MEDS: Pantoprazole 40 MG VIAL IVP SCH (10:18)
[2018-01-04] MEDS: levETIRAcetam In NaCl (Iso-Os) 1,000 MG in Premix Bag 1 BAG IVPB SCH ×2 (10:18→20:13)
[2018-01-04] MEDS: Hydrocortisone 1% Cream 30 GM TUBE TOP SCH (10:25)
[2018-01-04] MEDS: Lisinopril 5 MG TAB PO SCH (10:35)
[2018-01-04] MEDS: Glycopyrrolate 1 MG TAB PER TUBE SCH ×4 (10:35→20:23)
--- NOTE | 2018-01-04 11:19 | PRG ---
DATE OF SERVICE: 01/04/2018 SUBJECTIVE: Brigida Norwood is doing well today. Neurologically, unchanged. OBJECTIVE: VITAL SIGNS: Temperature 99.1 degrees, blood pressure 125/67. LUNGS: Clear to auscultation. CARDIAC: Regular rate and rhythm without murmur or gallop. ABDOMEN: Soft and nontender. ASSESSMENT AND PLAN: 1. Dislodged PEG tube will plan placement of a PEG tube, possibly laparoscopic-assisted today. She will continue bolus feedings to enable to do keep her from dislodging it. Please do not reinitiate continuous feedings as this was done when she was discharged from the hospital last occasion and she has now another dislodged PEG tube. 2. Hydrocephalus, status post craniectomy. We will assist neurosurgery in the next week in replacing cranial flap and EXPLOSIVE OPERATOR SUPERVISOR shunt. Job ID: [id number]
[2018-01-04] MEDS ORDERED: PROPOFOL 200 MG/20 ML VIAL ONE (11:26)
[2018-01-04] MEDS: Scopolamine 1.5 mg/72 hour Patch TOP SCH (12:51)
[2018-01-04] MEDS ORDERED: Bupivacaine HCl 0.5%/Epinephrine 1:200,000/PF 30 ml Vial ONE (13:42)
--- NOTE | 2018-01-04 17:19 | PDOC.PN ---
- Subjective Encounter Start Date: 01/04/18 Encounter Start Time: 12:00 Subjective: pt trached - Objective Resuscitation Status - Order Detail: 01/01/18 12:06 Resuscitation Status Routine Resuscitation Status: FULL: Full Resuscitation Discussed with: per previous order Vital Signs & Weight: Vital Signs (12 hours) Temp Pulse Pulse Pulse Resp BP BP 01/04/18 16:20 99.1 F 01/04/18 14:50 104 H 95 149/85 H 01/04/18 14:09 67 15 01/04/18 12:00 99.8 F H 01/04/18 10:35 77 103/66 01/04/18 10:29 93 25 H 01/04/18 09:00 99.1 F 01/04/18 08:00 01/04/18 06:40 66 17 BP Pulse Ox Pulse Ox Pulse Ox 01/04/18 16:20 01/04/18 14:50 127/80 100 100 01/04/18 14:09 100 01/04/18 12:00 01/04/18 10:35 01/04/18 10:29 99 01/04/18 09:00 01/04/18 08:00 100 01/04/18 06:40 100 Weight Admit Weight 214 lb 8.015 oz Weight 205 lb 7.533 oz Most Recent Monitor Data Heart Rate from ECG 79 NIBP 136/83 NIBP BP-Mean 100 Respiration from ECG 24 SpO2 100 I&O: 01/03/18 01/04/18 01/05/18 06:59 06:59 06:59 Intake Total 3092 6471 709 Output Total 7554 1426 1022 Balance 965 -0026 -314 Result Diagrams: 01/01/18 04:30 01/04/18 05:36 Additional Labs: Accuchecks 01/04/18 01/04/18 01/04/18 16:29 11:19 04:51 POC Glucose 97 85 89 01/03/18 22:20 POC Glucose 87 Phys Exam - Physical Examination rhonchi all over Cardiovascular: RRR, no significant murmur, no rub, gallop, irregular Gastrointestinal: soft, non-tender, no distention, positive bowel sounds Musculoskeletal: edema present Dx/Plan (1) Rash Code(s): R21 - RASH AND OTHER NONSPECIFIC SKIN ERUPTION Status: Acute (2) ICH (intracerebral hemorrhage) Code(s): I61.9 - NONTRAUMATIC INTRACEREBRAL HEMORRHAGE, UNSPECIFIED Status: Acute Comment: S/ P craniotomy and drain placement (3) Status post craniectomy Code(s): Z98.890 - OTHER SPECIFIED POSTPROCEDURAL STATES Status: Acute (4) UTI (urinary tract infection) Status: Acute - Plan pt going for peg tube placement -: rash has improved -: pt on cefepime for uti * . Review of Systems - Review of Systems Other: unable to obtain - Medications/Allergies Allergies/Adverse Reactions: Allergies Allergy/AdvReac Type Severity Reaction Status Date / Time codeine Allergy Verified 12/25/17 23:29 Medications: Current Medications Acetaminophen (Tylenol) 650 mg PO Q4H PRN PRN Reason: Headache/Fever/Mild Pain (1-3) Last Admin: 12/29/17 23:48 Dose: 650 mg Albuterol/Ipratropium (Duoneb) 3 ml NEB QID-RT [facility] Last Admin: 01/04/18 14:09 Dose: 3 ml Bisacodyl (Dulcolax) 10 mg PO DAILYPRN PRN PRN Reason: Constipation Dextrose/Water (Dextrose 50%) 25 gm IVP PRN PRN PRN Reason: HYPOGLYCEMIA PROTOCOL Diphenhydramine HCl (Benadryl) 25 mg IVP Q6H PRN PRN Reason: Itching & Insomnia Last Admin: 01/03/18 20:56 Dose: 25 mg Glucagon (Glucagon) 1 mg IM PRN PRN PRN Reason: HYPOGLYCEMIA PROTOCOL Glycopyrrolate (Robinul) 1 mg PER TUBE TID [facility] Last Admin: 01/04/18 16:14 Dose: Not Given Hydrocortisone/Aloe (Hydrocortisone 1% Cream) 1 gm TOP DAILY [facility] Last Admin: 01/04/18 10:25 Dose: 1 applic Hydroxyzine HCl (Atarax) 50 mg PER TUBE QIDPRN PRN PRN Reason: Itching Last Admin: 01/04/18 01:18 Dose: 50 mg Sodium Chloride (Normal Saline 0.9%) 1,000 mls @ 50 mls/hr IV .Q20H ALAN Last Admin: 01/04/18 05:08 Dose: 1,000 mls Dextrose/Water (D5w) 1,000 mls @ 0 mls/hr IV INF PRN PRN Reason: HYPOGLYCEMIA PROTOCOL Potassium Chloride 40 meq/ (Sodium Chloride) 270 mls @ 135 mls/hr IVPB ASDIR PRN PRN Reason: FOR SERUM K+ 2.5 - 3.5 Potassium Chloride 40 meq/ (Device) 100 mls @ 50 mls/hr IVPB ASDIR PRN PRN Reason: FOR SERUM K+ 2.5 - 3.5 Last Admin: 01/02/18 10:31 Dose: 100 mls Magnesium Sulfate 1 gm/ Sodium (Chloride) 102 mls @ 102 mls/hr IV PRN PRN PRN Reason: MAG LEVEL 1.4 - 2.0 Last Admin: 01/01/18 10:26 Dose: 102 mls Magnesium Sulfate 2 gm/ Device 100 mls @ 100 mls/hr IVPB ASDIR PRN PRN Reason: MAGNESIUM < 1.4 Potassium Phosphate 9 mmol/ (Sodium Chloride) 103 mls @ 25.75 mls/hr IVPB ASDIR PRN PRN Reason: Phosphate 1.0-1.8 Potassium Phosphate 12 mmol/ (Sodium Chloride) 254 mls @ 63.5 mls/hr IV ASDIR PRN PRN Reason: Serum phosphate 0.5-0.9 Potassium Phosphate 15 mmol/ (Sodium Chloride) 255 mls @ 63.75 mls/hr IV ASDIR PRN PRN Reason: Serum Phos < 0.5 Levetiracetam 1,000 mg/ Device 100 mls @ 200 mls/hr IVPB BID [facility] Last Admin: 01/04/18 10:18 Dose: 100 mls Cefepime HCl 1 gm/ Sodium (Chloride) 100 mls @ 200 mls/hr IVPB Q8HR [facility] Last Admin: 01/04/18 13:37 Dose: 100 mls Insulin Human Regular (Humulin R) 0 units SC .MILD SLIDING PRN; Protocol PRN Reason: MILD SLIDING SCALE Labetalol HCl (Normodyne) 10 mg SLOW IVP Q2H PRN PRN Reason: SBP >160 Last Admin: 01/02/18 14:15 Dose: 10 mg Lisinopril (Zestril) 5 mg PO DAILY [facility] Last Admin: 01/04/18 10:35 Dose: Not Given Magnesium Oxide (Magnesium Oxide) 400 mg PO BIDPRN PRN PRN Reason: FOR SERUM MAG 1.4 - 2.0 Magnesium Oxide (Magnesium Oxide) 800 mg PO PRN PRN PRN Reason: FOR SERUM MAG < 1.4 Miscellaneous Medication (Phos-Nak) 1 pkt PO TIDPRN PRN PRN Reason: FOR PHOS LEVEL 1.0 - 1.8 Miscellaneous Medication (Phos-Nak) 2 pkt PO TIDPRN PRN PRN Reason: FOR PHOS LEVEL 0.5 - 1.0 Ccu Electrolyte (Replacement Protocol) 0 each FS PRN PRN PRN Reason: FOR ELECTROLYTE REPLACEMENT Ondansetron HCl (Zofran) 4 mg IVP Q8H PRN PRN Reason: Nausea/Vomiting Pantoprazole Sodium (Protonix) 40 mg IVP DAILY [facility] Last Admin: 01/04/18 10:18 Dose: 40 mg Potassium Chloride (K-Dur) 40 meq PO ASDIR PRN PRN Reason: FOR SERUM K+ 2.5 - 3.5 Potassium Chloride (Klor-Con) 40 meq PER TUBE ASDIR PRN PRN Reason: FOR SERUM K+ 2.5-3.5 Scopolamine (Transderm Scop) 1.5 mg TOP Q3D [facility] Last Admin: 01/04/18 12:51 Dose: 1.5 mg Sodium Chloride (Flush - Normal Saline) 10 ml IVF PRN PRN PRN Reason: Saline Flush Sodium Chloride (Flush - Normal Saline) 10 ml IVF Q12HR [facility] Last Admin: 01/04/18 10:18 Dose: 10 ml Sodium Chloride (Flush - Normal Saline) 10 ml IVF PRN PRN PRN Reason: Saline Flush Sodium Chloride (Flush - Normal Saline) 10 ml IV DAILY [facility] Last Admin: 01/04/18 10:18 Dose: 10 ml
--- NOTE | 2018-01-04 22:58 | ULT ---
BILATERAL LOWER EXTREMITY VENOUS ULTRASOUND: 01/04/18 COMPARISON: 12/26/17 HISTORY: Bilateral lower extremity edema. TECHNIQUE: Multiplanar mello scale and color doppler images were obtained in a bilateral lower extremity venous u ltrasound. Spectral analysis of the doppler waveforms were performed. FINDINGS: The bilateral common femoral veins, profunda femoral veins, superficial femoral veins, and popliteal veins are normal in appearance without visible thrombus. These vessels demonstrate normal compression , flow and augmentation. The posterior tibial veins and greater saphenous veins are also patent. IMPRESSION: No evidence of DVT. POS: [facility]
[2018-01-05] MEDS: Sodium Chloride 0.9% 1,000 ML IV SCH ×2 (01:09→17:18)
[2018-01-05] MEDS: Cefepime 1 GM in Sodium Chloride 0.9% 100 ML IVPB SCH ×3 (05:17→21:06)
[2018-01-05 07:06] LABS: Anion Gap 9 mmol/L (10-20); BUN (Urea Nitrogen) 8 mg/dL (7.0-18.7); Calc. Creatinine Clearance 207 mL/min (70-130); Calcium 8.7 mg/dL (7.8-10.44); Carbon Dioxide 27 mmol/L (22-29); Chloride 107 mmol/L (98-107); Estimated GFR-MDRD Greater than 90; Glucose 104 mg/dL (70-105); Potassium 3.7 mmol/L (3.5-5.1); Sodium 139 mmol/L (136-145)
--- NOTE | 2018-01-05 09:10 | PRG ---
DATE OF SERVICE: 01/05/2018 SUBJECTIVE: This patient remains in the CCU. She had her PEG tube replaced yesterday. There have been no acute changes overnight. OBJECTIVE: VITAL SIGNS: On exam, her temperature is 99.2, pulse 80, blood pressure 113/62, O2 saturation 100%. Intake for 24 hours 1729, output 1929, weight 207 pounds. NEUROLOGICAL: She will not open her eyes or follow commands for me. She does move her right side spontaneously. HEENT: No change. NECK: No JVD. Trach in good position. LUNGS: Clear. CARDIAC: S1 and S2, regular. ABDOMEN: Soft. She has a binder in place. EXTREMITIES: Edematous throughout. LABORATORY DATA: Sodium 139, potassium 3.7, chloride 107, CO2 27, BUN 8, creatinine 0.5, glucose 104. ASSESSMENT: 1. Hydrocephalus, requiring extraventricular drain. 2. Status post percutaneous endoscopic gastrostomy tube dislodgement and subsequent replacement. 3. Sepsis syndrome. PLAN: She is due for an internalized shunt procedure early next week. We are continuing with antibiotic therapy that Dr. Villegas has ordered. She is receiving enteral nutrition. No other acute needs were identified at this time. Job ID: [id number]
[2018-01-05] MEDS: Glycopyrrolate 1 MG TAB PER TUBE SCH ×3 (09:30→19:40)
[2018-01-05] MEDS: Lisinopril 5 MG TAB PO SCH (09:30)
[2018-01-05] MEDS: Hydrocortisone 1% Cream 30 GM TUBE TOP SCH (09:32)
[2018-01-05] MEDS: levETIRAcetam In NaCl (Iso-Os) 1,000 MG in Premix Bag 1 BAG IVPB SCH ×2 (09:32→19:40)
[2018-01-05] MEDS: Pantoprazole 40 MG VIAL IVP SCH (09:33)
--- NOTE | 2018-01-05 12:15 | PRG ---
DATE OF SERVICE: 01/05/2018 SUBJECTIVE: The patient is seen and examined at the bedside. She is in ICU bed 3. OBJECTIVE: VITAL SIGNS/GENERAL: Blood pressure is 125/71, pulse is 80, respiratory rate is 17, O2 saturation is 100%, on trach collar, 9 L of O2 . Ortega catheter is in. She has a central line in the right arm. She has abdominal belt covering the PEG tube to prevent self removal. 1+ peripheral edema all over. She has dressing on her head. NEUROLOGIC: She grimaces when I forced her to open her eyes, she does not follow commands except for very simple ones like opening mouth. LUNGS: Clear. HEART: S1 and S2 normal. No S3. No S4. ABDOMEN: Covered with abdominal belt. EXTREMITIES: As I mentioned above, there is 1+ peripheral edema. Ortega catheter is in. LABORATORY DATA: Labs showed sodium of 139, potassium 3.0, chloride 107, CO2 is 27, BUN 8, creatinine 0.51, magnesium 2.0. IMPRESSION: 1. Rash, improved. 2. Intracranial hemorrhage, status post craniotomy and drain placement. 3. Urinary tract infection with Pseudomonas aeruginosa, on treatment. 4. Hydrocephalus. 5. Status post percutaneous endoscopic gastrostomy tube dislodgment and subsequent replacement. PLAN: As mentioned above plus we will continue her enteral nutrition. She is going to have internalize shunt procedure early next week. We will continue antibiotic as per ID. Job ID: [id number]
[2018-01-06 04:42] LABS: Phosphorus 3.1 mg/dL (2.3-4.7)
[2018-01-06 04:49] LABS: Anion Gap 13 mmol/L (10-20); BUN (Urea Nitrogen) 8 mg/dL (7.0-18.7); Calc. Creatinine Clearance 212 mL/min (70-130); Calcium 8.6 mg/dL (7.8-10.44); Carbon Dioxide 22 mmol/L (22-29); Chloride 107 mmol/L (98-107); Estimated GFR-MDRD Greater than 90; Glucose 103 mg/dL (70-105); Potassium 3.8 mmol/L (3.5-5.1); Sodium 138 mmol/L (136-145)
[2018-01-06] MEDS: Cefepime 1 GM in Sodium Chloride 0.9% 100 ML IVPB SCH (05:06)
[2018-01-06] MEDS: Lisinopril 5 MG TAB PO SCH (09:02)
[2018-01-06] MEDS: Glycopyrrolate 1 MG TAB PER TUBE SCH ×3 (09:02→20:41)
[2018-01-06] MEDS: Hydrocortisone 1% Cream 30 GM TUBE TOP SCH (09:05)
[2018-01-06] MEDS: levETIRAcetam In NaCl (Iso-Os) 1,000 MG in Premix Bag 1 BAG IVPB SCH ×2 (09:05→20:41)
[2018-01-06] MEDS: Pantoprazole 40 MG VIAL IVP SCH (09:06)
[2018-01-06] MEDS: Sodium Chloride 0.9% 1,000 ML IV SCH (13:37)
[2018-01-07 04:34] LABS: Phosphorus 3.6 mg/dL (2.3-4.7)
[2018-01-07 04:37] LABS: Anion Gap 10 mmol/L (10-20); BUN (Urea Nitrogen) 9 mg/dL (7.0-18.7); Calc. Creatinine Clearance 206 mL/min (70-130); Calcium 8.7 mg/dL (7.8-10.44); Carbon Dioxide 26 mmol/L (22-29); Chloride 109 mmol/L (98-107); Estimated GFR-MDRD Greater than 90; Glucose 105 mg/dL (70-105); Magnesium 2.1 mg/dL (1.6-2.6); Potassium 3.9 mmol/L (3.5-5.1); Sodium 141 mmol/L (136-145)
--- NOTE | 2018-01-07 07:49 | PRG ---
DATE OF SERVICE: 01/06/2018 SUBJECTIVE: The patient remains in the CCU with extraventricular drain in place for her hydrocephalus. There have been no acute changes overnight. OBJECTIVE: VITAL SIGNS: On exam, her temperature is 97.9, pulse 74, blood pressure 123/66, O2 saturation 100% on trach collar. HEENT: Still has some swelling on the right side of her skull. NECK: Trach in good position. LUNGS: Clear anteriorly. CARDIAC: S1, S2. Regular. ABDOMEN: Soft, obese. EXTREMITIES: Trace edema throughout. LABORATORY DATA: Sodium 138, potassium 3.8, chloride 107, CO2 of 22, BUN 8, creatinine 0.5, glucose 103. ASSESSMENT: The patient remains clinically stable with hydrocephalus requiring extraventricular drain. She is due for internalization of the shunt tomorrow. Her PEG tube has been successfully replaced, and she is tolerating bolus feeds. Her respiratory status remained stable through tracheostomy. Job ID: [id number]
--- NOTE | 2018-01-07 07:50 | PRG ---
DATE OF SERVICE: 01/06/2018 SUBJECTIVE: The patient is seen and examined at the bedside. She is basically the stage, nothing happened overnight. OBJECTIVE: VITAL SIGNS: Blood pressure is fluctuating between 99 and 111 over 55 to 59, pulse is 72, respiratory rate is 12, O2 saturation is 99% on the room air. GENERAL: She is in her normal mental state. She does not really respond. She follows very simple commands like she opens her mouth, but that is almost it. HEENT: She has incision on her right part of her skull with some significant swelling in the lower part of the wound. LUNGS: Clear. HEART: S1, S2 normal. ABDOMEN: She has abdominal binder to prevent her from pulling her PEG tube. EXTREMITIES: No clubbing, cyanosis. There is 1+ peripheral edema. Symmetric bilaterally. NEUROLOGIC: As I mentioned above, she does not really follow much. She is bedridden and not very responsive. LABORATORY DATA: Glycemia is ranging from 100 to 112. IMPRESSION: 1. Rash, improved. 2. Intracranial hemorrhage, status post craniotomy and drain placement. 3. Urinary tract infection with Pseudomonas aeruginosa, on treatment. 4. Hydrocephalus. 5. Status post percutaneous endoscopic gastrostomy tube dislodgment and subsequent replacement. PLAN: She is getting 240 mL of bolus feeding and tolerating fine without any residuals. We will continue at the same rate pattern. She is supposed to have internalized shunt procedure earlier next week. She will be continued on antibiotic as per ID, and she will remain in ICU setting. Job ID: [id number]
--- NOTE | 2018-01-07 07:50 | CON ---
DATE OF CONSULTATION: The patient is clinically stable. Her EVD is functional and draining clear CSF. Her incision is clean and dry. Anticipated HONEY GRADER AND BLENDER shunt next week per Dr. Jeong. Job ID: [id number]
--- NOTE | 2018-01-07 08:00 | PRG ---
DATE OF SERVICE: 01/07/2018 SUBJECTIVE: She is about the same and there have no acute changes overnight. OBJECTIVE: VITAL SIGNS: On exam, temperature is 98.2 with a T-max of 99.7, pulse 79, and blood pressure 126/72. HEENT: Some swelling on the right side of her cranium. NECK: Trach in good position. LUNGS: Clear. CARDIAC: S1 and S2, regular. ABDOMEN: Soft. EXTREMITIES: No edema. LABORATORY DATA: Sodium 141, potassium 3.9, BUN 9, creatinine 0.5, glucose 105. ASSESSMENT: 1. Hydrocephalus. 2. Status post trach tube dislodgement. 3. Previous aneurysmal bleed. PLAN: Internalization of shunt planned for today. The patient is now off antibiotics. We are continuing to follow with you while she is in the ICU. Job ID: [id number]
[2018-01-07] MEDS: Lisinopril 5 MG TAB PO SCH (08:31)
[2018-01-07] MEDS: levETIRAcetam In NaCl (Iso-Os) 1,000 MG in Premix Bag 1 BAG IVPB SCH ×2 (08:32→19:53)
[2018-01-07] MEDS: Pantoprazole 40 MG VIAL IVP SCH (08:32)
[2018-01-07] MEDS: Hydrocortisone 1% Cream 30 GM TUBE TOP SCH (08:34)
[2018-01-07] MEDS: Glycopyrrolate 1 MG TAB PER TUBE SCH ×3 (08:40→19:52)
--- NOTE | 2018-01-07 10:11 | PRG ---
DATE OF SERVICE: 01/04/2018 SUBJECTIVE: The patient is in the ICU, still with mechanical ventilatory support, does not interact with the examiner. OBJECTIVE: VITAL SIGNS: Showed a T-max of 99.8. Other vital signs are not remarkable. The I's and O's have been slightly positive and then mostly negative in the mid 1500s. She has an indwelling Ortega catheter and gastrostomy tube drainage, had one bowel movement with soft stool. Marked improvement of the skin eruption is noted. HEENT: The ocular movements are conjugate. No nystagmus. The pupils are sluggish with 3 mm on the right and 2 mm on the left. Ventriculostomy output ranging from 160 to 200 mL in 24 hours. LUNGS: Symmetric air entry. HEART: S1 and S2. Regular rate. ABDOMEN: Slightly distended. NEURO: The patient again does not follow commands. I could not get any spontaneous movements in extremities. LABORATORY DATA: Sodium 138, creatinine 0.54, last transaminases from admission within normal limits. Other liver functions within normal limits on admission, have not been repeated. The last white cell count from January 01 was 9.7. Platelet count 485. Microbiology data; we have Pseudomonas aeruginosa and gram-negative more likely to represent colonization rather than true invasive pathogen. We have a venogram from January 04, which showed no evidence of deep vein thrombosis and a brain CT scan from January 04 with stable position of ventriculostomy catheter. The lateral ventricle size has decreased. Some small scattered areas of hemorrhage seen within the herniated brain parenchyma. Low-attenuation areas in the right brain and rancho, likely representing areas of developing subacute infarct. The last note from Neurosurgery was reviewed, and the preference seems to be to continue drainage until ventricular cavity improves in size and at that time hopefully we will try a bone flap and place a ventriculoperitoneal shunt. ASSESSMENT AND DISCUSSION: Hypertension, asthma, brain aneurysm with hemorrhage , craniectomy, clipping of aneurysm and no erythematous eruption secondary to either Zosyn or phenytoin. Hypersensitivity with fever. This is the most likely reason for the changes that led to admission. She also had some concerns with the displacement and this will have to be repositioned probably through laparoscopy by surgery. At this point, we will discontinue antimicrobial therapy. Job ID: [id number] [facility]
[2018-01-07] MEDS: Sodium Chloride 0.9% 1,000 ML IV SCH (10:53)
--- NOTE | 2018-01-07 11:44 | PDOC.PN ---
- Subjective Encounter Start Date: 01/07/18 Encounter Start Time: 11:43 -: non-verbal - Objective Resuscitation Status - Order Detail: 01/01/18 12:06 Resuscitation Status Routine Resuscitation Status: FULL: Full Resuscitation Discussed with: per previous order MAR Reviewed: Yes Vital Signs & Weight: Vital Signs (12 hours) Temp Pulse Resp BP Pulse Ox 01/07/18 11:02 68 24 H 100 01/07/18 11:00 99.0 F 01/07/18 08:31 87 166/99 H 01/07/18 07:30 100 01/07/18 07:28 87 14 99 01/07/18 07:00 98.3 F 01/07/18 04:00 98.2 F 01/07/18 00:00 99.7 F H Weight Admit Weight 214 lb 8.015 oz Weight 211 lb 3.245 oz Most Recent Monitor Data Heart Rate from ECG 69 NIBP 131/76 NIBP BP-Mean 94 Respiration from ECG 24 SpO2 100 I&O: 01/06/18 01/07/18 01/08/18 06:59 06:59 06:59 Intake Total 5 3597 210 Output Total 2548 2165 857 Balance -493 2902 -821 Result Diagrams: 01/01/18 04:30 01/07/18 04:00 Additional Labs: Accuchecks 01/07/18 01/06/18 01/06/18 04:10 22:23 16:49 POC Glucose 97 106 102 Phys Exam - Physical Examination Neck: no JVD Respiratory: clear to auscultation bilateral Cardiovascular: RRR, no significant murmur Gastrointestinal: soft, positive bowel sounds Musculoskeletal: no edema Dx/Plan (1) Hydrocephalus Code(s): G91.9 - HYDROCEPHALUS, UNSPECIFIED Status: Acute (2) Contact dermatitis Code(s): L25.9 - UNSPECIFIED CONTACT DERMATITIS, UNSPECIFIED CAUSE Status: Acute Qualifiers: Contact dermatitis type: allergic Contact dermatitis trigger: other chemical product Qualified Code(s): L23.5 - Allergic contact dermatitis due to other chemical products Comment: Contact vs. drug related. stopped all meds except Keppra. Will avoid penicillins. Steriods (3) UTI (urinary tract infection) Status: Acute (4) ICH (intracerebral hemorrhage) Code(s): I61.9 - NONTRAUMATIC INTRACEREBRAL HEMORRHAGE, UNSPECIFIED Status: Acute Comment: S/ P craniotomy and drain placement - Plan recurrent ICH -: await NS plan -: cont supportive care-vent, nutrition -: prognosis guarded * .
--- NOTE | 2018-01-07 11:56 | OP ---
DATE OF PROCEDURE: 01/04/2018 PREOPERATIVE DIAGNOSES: Dislodged percutaneous endoscopic gastrostomy tube second time, neurological impairment, hydrocephalus, status post craniotomy. POSTOPERATIVE DIAGNOSES: Dislodged percutaneous endoscopic gastrostomy tube second time, neurological impairment, hydrocephalus, status post craniotomy. PROCEDURE PERFORMED: Percutaneous endoscopic gastrostomy tube. ANESTHESIA: Sedation, local. DESCRIPTION OF PROCEDURE: The patient was taken to the operating room. Under intravenous sedation, the abdomen was prepared with ChloraPrep, and draped in routine fashion. Scope placed per os under direct visualization using air insufflation, passed stomach insufflating it with air and noting a good indentation of the left subxiphoid and trocar and catheter introduced percutaneously into the gastric lumen, visualized endoscopically. Grasping wire was placed and removing the endoscope and wire out of the mouth, lubricating the feeding tube, attaching it to the wire and pulling back down through the mouth into the stomach and secured to the abdominal wall with a fixation device. Abdominal binder and sterile dressing applied. Order was specifically written to do bolus tube feedings and keep the tube sequestrated under abdominal binder to prevent the patient from dislodging it. Job ID: [id number]
--- NOTE | 2018-01-07 12:18 | CT ---
CT HEAD: Date: 01/07/18 COMPARISON: 01/04/18. HISTORY: Ventriculostomy clotted, evaluate repositioning. TECHNIQUE: Axial CT imaging at 5 mm intervals from vertex through skull base without contrast. FINDINGS: There is a right frontal craniectomy with a prosthetic calvarial flap noted laterally. There is herni ation of brain through the craniectomy defect with lateral deviation of the prosthetic calvarium. The re is extensive hypodensity involving the basal ganglia, thalamus, and MCA territory on the right con sistent with extensive infarction. There is extra-axial hemorrhage on the right which includes promin ent right-sided subdural hematoma in the right middle cranial fossa, enlarged since the prior examina tion. There is an aneurysm coil in the expected location of the MCA bifurcation on the right. Adjacen t to this is extensive new intra-axial hemorrhage measuring at least 4.2 cm transverse dimension and 2.6 cm AP dimension. There are new linear areas of hemorrhage within the herniated right frontal lobe consistent with intr a-axial hemorrhage, as well as probable subarachnoid hemorrhage. There is extensive new intraventricu lar blood within the bilateral lateral ventricles, right greater than left, extending into the third ventricle and the fourth ventricle. There is new right-sided subdural blood near the vertex on the right measuring up to 5.0 mm in transv erse dimension. There is a new left subdural hematoma measuring 9.0 mm in transverse dimension. There is a ventriculostomy inserted via left frontal approach. The ventriculostomy tube extends just superior to the frontal horn of the left lateral ventricle. It appears to cross into the frontal horn of the right lateral ventricle before extending just lateral to the frontal horn of the right latera l ventricle, likely terminating in the region of the right caudate head. There appears to be new extra-axial blood posterior to the clivus suggesting subarachnoid blood. There is new mass effect on the frontal horn of the right lateral ventricle. There is new left to rig ht midline shift in the region of the frontal horns of the lateral ventricles measuring 6.0 mm. There is hypodensity in the dorsal aspect of the mid brain on the right and centrally within the rancho suggesting brainstem infarction. IMPRESSION: New worsening hypodensities throughout the MCA territory on the right and right basal ganglia/thalamu s suggesting worsening right-sided infarction. New bilateral subdural hematomas. New intraventricular hemorrhage. New intra-axial hemorrhage and right frontal lobe incontinuity with intraventricular hem orrhage which may signify rupture through the anterior horn of right lateral ventricle into the brain parenchyma. Ventriculostomy appears to terminate near the right caudate head. Results called to Cleveland Davila on 01/07/18 at 10:45am. Code CR. POS: WIN[facility]RED
--- NOTE | 2018-01-07 12:22 | PRG ---
DATE OF SERVICE: 01/07/2018 SUBJECTIVE: Ms. Norwood is a 47-year-old female known to me for emergent hemicraniectomy as well as endovascular treatment of right MCA trifurcation region aneurysm, which took place approximately 5 to 6 weeks ago. She was discharged after that time, but readmitted just about a week ago due to a decline in her neurologic state where CT examination revealed the presence of hydrocephalus. A ventriculostomy tube was subsequently placed and she has been in the hospital recovering since. Her spinal fluid has been clear up until this morning when the nurse notified our service of melania discharge of blood through the ventriculostomy tube. Neurologically, she has been unchanged, which has been for the most part in an obtunded state. A repeat CT examination performed this morning reveals the presence of a predominantly intracerebral hemorrhage within the right hemisphere. She also has presence of extraaxial blood within the interhemispheric fissure and on the contralateral side over the left cerebral convexity. Ventricular size is relatively normal. She continues to have a substantial amount of edema within the cerebral hemisphere, encroaching through the hemicraniectomy defect site. She also has hypodensities throughout the right hemisphere and within the brainstem consistent with infarct. I met with the patient's aunt who visits her daily. I updated her on the most recent scan. At this time, I believe there is no intervention to perform. The source of the hemorrhage at this point is unclear, although it may represent a re-hemorrhage of an underlying vascular lesion versus a transformation of infarct. I believe, her state is critical and her prognosis at this point in time poor. We had originally planned to consider placement of a ventriculoperitoneal shunt and return of a bone flap, but given the most recent development, that will be postponed indefinitely. Job ID: [id number] MTDD
[2018-01-07] MEDS: Scopolamine 1.5 mg/72 hour Patch TOP SCH (13:12)
--- NOTE | 2018-01-07 19:32 | PRG ---
DATE OF SERVICE: 01/07/2018 SUBJECTIVE: Ms. Norwood is doing well today. She is tolerating her tube feedings well. OBJECTIVE: VITAL SIGNS: Temperature 99.4 degrees and blood pressure 129/84. ABDOMEN: Soft and nontender. Wet-to-dry dressings applied to OG tube sites. LABORATORY DATA: White count 9.7, hemoglobin 8. Brain CAT scan today reveals worsening of her CAT scan related to infarct. Dr. Jeong has seen her. It is felt that she probably has re-hemorrhaged and Dr. Jeong is communicated down, their prognosis is very poor. Palliative care should be considered. At this point, I will see her as needed. Please call if necessary. Job ID: [id number]
[2018-01-08 05:35] LABS: Phosphorus 3.6 mg/dL (2.3-4.7)
[2018-01-08 05:37] LABS: Anion Gap 12 mmol/L (10-20); BUN (Urea Nitrogen) 11 mg/dL (7.0-18.7); Calc. Creatinine Clearance 199 mL/min (70-130); Calcium 8.9 mg/dL (7.8-10.44); Carbon Dioxide 25 mmol/L (22-29); Chloride 111 mmol/L (98-107); Estimated GFR-MDRD Greater than 90; Glucose 111 mg/dL (70-105); Magnesium 2.1 mg/dL (1.6-2.6); Potassium 3.6 mmol/L (3.5-5.1); Sodium 144 mmol/L (136-145)
[2018-01-08] MEDS: Sodium Chloride 0.9% 1,000 ML IV SCH ×2 (06:10→13:57)
[2018-01-08 08:49] LABS: #Eosinphils 0.1 thou/uL (0.0-0.7); #Lymphocytes 1.4 thou/uL (1.20-3.40); #Monocytes 0.7 thou/uL (0.11-0.59); #Neutrophils 6.4 thou/uL (1.40-6.50); %Eosinophils 0.8 % (0.0-10.0); %Lymphocytes 16.2 % (21.0-51.0); %Monocytes 7.7 % (0.0-10.0); %Neutrophils 75.2 % (42.0-75.0); Hemoglobin 8.2 g/dL (12.0-16.0); Mean Corpuscular HGB CONC 30.8 g/dL (32.0-36.0); Mean Corpuscular Hemoglobin 29.8 pg (27.0-31.0); Mean Corpuscular Volume 96.8 fL (78.0-98.0); Mean Platelet Volume 6.7 fL (7.4-10.4); Platelet Count 522 thou/uL (130-400); RBC Distribution Width 17.2 % (11.5-14.5); Red Blood Cell (RBC) Count 2.74 mill/uL (4.20-5.40); White Blood Cell (WBC) Count 8.5 thou/uL (4.8-10.8)
--- NOTE | 2018-01-08 09:38 | PDOC.PN ---
- Subjective Encounter Start Date: 01/08/18 Encounter Start Time: 09:36 Subjective: non-responsive - Objective Resuscitation Status - Order Detail: 01/01/18 12:06 Resuscitation Status Routine Resuscitation Status: FULL: Full Resuscitation Discussed with: per previous order MAR Reviewed: Yes Vital Signs & Weight: Vital Signs (12 hours) Temp Pulse Resp Pulse Ox 01/08/18 08:00 98.7 F 100 01/08/18 06:46 85 20 99 01/08/18 04:00 99.1 F 01/08/18 01:00 98.9 F 01/07/18 23:00 99.2 F Weight Admit Weight 214 lb 8.015 oz Weight 206 lb 5.643 oz Most Recent Monitor Data Heart Rate from ECG 75 NIBP 132/88 NIBP BP-Mean 102 Respiration from ECG 21 SpO2 100 I&O: 01/07/18 01/08/18 01/09/18 06:59 06:59 06:59 Intake Total 3597 3089 Output Total 2163 3398 167 Balance 1432 581 -167 Result Diagrams: 01/08/18 04:26 01/08/18 04:26 Additional Labs: Accuchecks 01/08/18 01/07/18 01/07/18 04:28 21:05 16:28 POC Glucose 117 H 126 H 113 H 01/07/18 11:29 POC Glucose 146 H Phys Exam - Physical Examination Neck: no JVD Respiratory: clear to auscultation bilateral Cardiovascular: RRR, no significant murmur Gastrointestinal: soft, positive bowel sounds Musculoskeletal: edema present Dx/Plan (1) Hydrocephalus Code(s): G91.9 - HYDROCEPHALUS, UNSPECIFIED Status: Acute (2) Contact dermatitis Code(s): L25.9 - UNSPECIFIED CONTACT DERMATITIS, UNSPECIFIED CAUSE Status: Acute Qualifiers: Contact dermatitis type: allergic Contact dermatitis trigger: other chemical product Qualified Code(s): L23.5 - Allergic contact dermatitis due to other chemical products Comment: Contact vs. drug related. stopped all meds except Keppra. Will avoid penicillins. 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
--- NOTE | 2018-01-08 10:00 | CT ---
CT HEAD NONCONTRAST: Date: 01/08/18 COMPARISON: Previous day. INDICATION: Intracranial hemorrhage, serial follow-up exam. FINDINGS: There remains extracranial herniation via the right frontoparietal craniotomy site. Persistence of mu ltifocal intracranial hemorrhage, including prominent volume of intraventricular hemorrhagic extensio n. There has been slight progression and volume of the ventricular system, which likely relates to a developing component of obstructive hydrocephalus given the volume of intraventricular hemorrhage whi ch persists. Prominent subdural hemorrhage remains both along the interhemispheric falx and overlying the left convexity, most pronounced overlying the left lateral frontal convexity, with a thickness o f 9.0 mm, slightly increased from previous exam. There has also been slight progression in volume of subdural hemorrhage along the interhemispheric falx, now 6.0 mm in width. Left frontal approach ventr iculostomy remains, traversing midline, similar in configuration. Degree of prominent cerebral edema of the right hemisphere persists. Stable mild rightward midline shift due to extracranial herniation. IMPRESSION: Redemonstration of prominent degree of extracranial herniation via the right frontoparietal craniotom y site. Multifocal intracranial hemorrhage with a prominent volume of intraventricular hemorrhage guzman s persist with slight increased volume of the ventricular system, as discussed above. Minimal progres merlin in size of subdural hemorrhage overlying the left convexity, and slight progression in volume of the parafalcine subdural hemorrhage, as well. POS: TPC
--- NOTE | 2018-01-08 10:08 | PRG ---
DATE OF SERVICE: 01/08/2018 SUBJECTIVE: The patient is continuing to rest on trach collar. Her AREA SALES MANAGER shunt has been indefinitely postponed because of the development of more hemorrhage in the right part of her brain. OBJECTIVE: VITAL SIGNS: Temperature 99.1, pulse 105, blood pressure 125/85, O2 saturation 100%. HEENT: Unchanged. NECK: No JVD. LUNGS: Clear. CARDIAC: S1 and S2, regular. ABDOMEN: Soft. EXTREMITIES: No edema. LABORATORY DATA: Sodium 144, potassium 3.6, chloride 111, CO2 25, BUN 11, creatinine 0.5, glucose 111. ASSESSMENT: 1. Brain hemorrhage. 2. Status post aneurysmal bleed. 3. Hydrocephalus. 4. Status post percutaneous endoscopic gastrostomy tube dislodgement. PLAN: Following Neurosurgery's lead here. It sounds like palliative care might be the best option. Supportive care continues with the tracheostomy and feeding tube. Job ID: [id number]
[2018-01-08] MEDS: levETIRAcetam In NaCl (Iso-Os) 1,000 MG in Premix Bag 1 BAG IVPB SCH ×2 (10:25→20:00)
[2018-01-08] MEDS: Pantoprazole 40 MG VIAL IVP SCH (10:25)
[2018-01-08] MEDS: Lisinopril 5 MG TAB PO SCH (10:25)
[2018-01-08] MEDS: Glycopyrrolate 1 MG TAB PER TUBE SCH ×3 (10:25→20:00)
[2018-01-08] MEDS: Hydrocortisone 1% Cream 30 GM TUBE TOP SCH (10:27)
[2018-01-09 05:26] LABS: Anion Gap 11 mmol/L (10-20); BUN (Urea Nitrogen) 9 mg/dL (7.0-18.7); Calc. Creatinine Clearance 202 mL/min (70-130); Calcium 8.8 mg/dL (7.8-10.44); Carbon Dioxide 27 mmol/L (22-29); Chloride 111 mmol/L (98-107); Estimated GFR-MDRD Greater than 90; Glucose 114 mg/dL (70-105); Magnesium 1.9 mg/dL (1.6-2.6); Potassium 3.7 mmol/L (3.5-5.1); Sodium 145 mmol/L (136-145)
[2018-01-09 06:33] LABS: Phosphorus 3.4 mg/dL (2.3-4.7)
--- NOTE | 2018-01-09 09:11 | PRG ---
DATE OF SERVICE: 01/09/2018 SUBJECTIVE: The patient is doing about the same. She will not wake up or follow commands. OBJECTIVE: VITAL SIGNS: Temperature 98.8, pulse , blood pressure 138/86, and O2 saturation 100%. HEENT: She has herniation through her skull on the right. She has a ventriculostomy in. NECK: Has a trach in midline position, which is clean. LUNGS: Clear. CARDIAC: S1 and S2, regular. ABDOMEN: Soft. EXTREMITIES: Edematous. LABORATORY DATA: Sodium 145, potassium 3.7, chloride 111, CO2 of 27, BUN 9, creatinine 0.5, and glucose 114. ASSESSMENT: 1. Status post large aneurysmal bleed, now with hydrocephalus, brain herniation through the craniotomy, and now with rebleeding. 2. Severe neurologic deficit, which does not appear to be improving. 3. Status post PEG tube replacement. PLAN: I spoke with Dr. Jeong yesterday. It sounds like she is going to need prolonged ventriculostomy drainage. From there, I am not sure where we will go. This situation is fairly hopeless in my opinion. From what the nursing staff has told me, Palliative Care is involved with family. Job ID: [id number]
[2018-01-09] MEDS: Lisinopril 5 MG TAB PO SCH (10:17)
[2018-01-09] MEDS: Glycopyrrolate 1 MG TAB PER TUBE SCH ×3 (10:17→22:12)
[2018-01-09] MEDS: Pantoprazole 40 MG VIAL IVP SCH (10:17)
[2018-01-09] MEDS: levETIRAcetam In NaCl (Iso-Os) 1,000 MG in Premix Bag 1 BAG IVPB SCH ×2 (10:18→22:12)
--- NOTE | 2018-01-09 10:40 | PDOC.PN ---
- Subjective Encounter Start Date: 01/09/18 Encounter Start Time: 10:38 -: non-verbal - Objective Resuscitation Status - Order Detail: 01/01/18 12:06 Resuscitation Status Routine Resuscitation Status: FULL: Full Resuscitation Discussed with: per previous order MAR Reviewed: Yes Vital Signs & Weight: Vital Signs (12 hours) Temp Pulse Resp BP Pulse Ox 01/09/18 10:17 79 140/77 01/09/18 08:00 99.6 F 01/09/18 07:30 79 20 100 01/09/18 04:00 98.8 F 01/09/18 00:00 99.0 F Weight Admit Weight 214 lb 8.015 oz Weight 203 lb 11.314 oz Most Recent Monitor Data Heart Rate from ECG 83 NIBP 140/77 NIBP BP-Mean 98 Respiration from ECG 25 SpO2 99 I&O: 01/08/18 01/09/18 01/10/18 06:59 06:59 06:59 Intake Total 3089 3010 300 Output Total 2508 1635 451 Balance 581 1375 -151 Result Diagrams: 01/08/18 04:26 01/09/18 03:55 Additional Labs: Accuchecks 01/08/18 01/08/18 01/08/18 21:24 16:32 10:47 POC Glucose 109 125 H 113 H Phys Exam - Physical Examination tracheostomy Neck: no JVD Respiratory: clear to auscultation bilateral Cardiovascular: RRR, no significant murmur Gastrointestinal: soft, positive bowel sounds Musculoskeletal: edema present Neurological: non-focal Dx/Plan (1) Hydrocephalus Code(s): G91.9 - HYDROCEPHALUS, UNSPECIFIED Status: Acute (2) Contact dermatitis Code(s): L25.9 - UNSPECIFIED CONTACT DERMATITIS, UNSPECIFIED CAUSE Status: Acute Qualifiers: Contact dermatitis type: allergic Contact dermatitis trigger: other chemical product Qualified Code(s): L23.5 - Allergic contact dermatitis due to other chemical products Comment: Contact vs. drug related. stopped all meds except Keppra. Will avoid penicillins. Steriods (3) UTI (urinary tract infection) Status: Acute (4) ICH (intracerebral hemorrhage) Code(s): I61.9 - NONTRAUMATIC INTRACEREBRAL HEMORRHAGE, UNSPECIFIED Status: Acute Comment: S/ P craniotomy and drain placement - Plan vent dependent -: cont nebs -: ventriculostomy draing -: poor prognosis * .
[2018-01-09] MEDS: Hydrocortisone 1% Cream 30 GM TUBE TOP SCH (10:41)
--- NOTE | 2018-01-09 17:03 | PRG ---
DATE OF SERVICE: 01/09/2018 SUBJECTIVE: Ms. Norwood remains in the ICU, unchanged from neurologic perspective. She has ventriculostomy. It is currently working, but there had been episodes over the past 24 hours, where it had not worked. My plan is to meet with the family either or Sunday of this week to discuss her current neurologic state as well as her prognosis and their wishes with respect to plans moving forward. Palliative care is currently involved. Job ID: [id number]
[2018-01-09] MEDS: Sodium Chloride 0.9% 1,000 ML IV SCH (18:06)
[2018-01-10 04:40] LABS: Phosphorus 3.9 mg/dL (2.3-4.7)
[2018-01-10 04:42] LABS: Anion Gap 11 mmol/L (10-20); BUN (Urea Nitrogen) 10 mg/dL (7.0-18.7); Calc. Creatinine Clearance 192 mL/min (70-130); Calcium 9.1 mg/dL (7.8-10.44); Carbon Dioxide 28 mmol/L (22-29); Chloride 107 mmol/L (98-107); Estimated GFR-MDRD Greater than 90; Glucose 111 mg/dL (70-105); Potassium 4.1 mmol/L (3.5-5.1); Sodium 142 mmol/L (136-145)
--- NOTE | 2018-01-10 08:06 | PDOC.PN ---
- Subjective Encounter Start Date: 01/10/18 Encounter Start Time: 08:05 -: non-verbal Subjective: no overnite events - Objective Resuscitation Status - Order Detail: 01/01/18 12:06 Resuscitation Status Routine Resuscitation Status: FULL: Full Resuscitation Discussed with: per previous order MAR Reviewed: Yes Vital Signs & Weight: Vital Signs (12 hours) Temp Pulse Resp Pulse Ox 01/10/18 07:52 88 26 H 100 01/10/18 04:00 99.7 F H 01/10/18 00:00 99.7 F H Weight Admit Weight 214 lb 8.015 oz Weight 202 lb 9.677 oz Most Recent Monitor Data Heart Rate from ECG 92 NIBP 127/74 NIBP BP-Mean 91 Respiration from ECG 26 SpO2 100 I&O: 01/09/18 01/10/18 01/11/18 06:59 06:59 06:59 Intake Total 3010 2320 Output Total 1635 2917 Balance 1375 -597 Result Diagrams: 01/08/18 04:26 01/10/18 03:20 Phys Exam - Physical Examination Neck: no JVD Respiratory: clear to auscultation bilateral Cardiovascular: RRR, no significant murmur Gastrointestinal: soft, positive bowel sounds Musculoskeletal: edema present Dx/Plan (1) Hydrocephalus Code(s): G91.9 - HYDROCEPHALUS, UNSPECIFIED Status: Acute (2) Contact dermatitis Code(s): L25.9 - UNSPECIFIED CONTACT DERMATITIS, UNSPECIFIED CAUSE Status: Acute Qualifiers: Contact dermatitis type: allergic Contact dermatitis trigger: other chemical product Qualified Code(s): L23.5 - Allergic contact dermatitis due to other chemical products Comment: Contact vs. drug related. stopped all meds except Keppra. Will avoid penicillins. Steriods (3) UTI (urinary tract infection) Status: Acute Qualifiers: Urinary tract infection type: site unspecified Hematuria presence: without hematuria Qualified Code(s): N39.0 - Urinary tract infection, site not specified (4) ICH (intracerebral hemorrhage) Code(s): I61.9 - NONTRAUMATIC INTRACEREBRAL HEMORRHAGE, UNSPECIFIED Status: Acute Qualifiers: Intracerebral hemorrhage etiology: nontraumatic Laterality: left Comment: S/ P craniotomy and drain placement - Plan no progress, has trach and PEG -: prognosis poor -: palliative care involved, NS to meet with family * .
--- NOTE | 2018-01-10 09:16 | PRG ---
DATE OF SERVICE: 01/10/2018 SUBJECTIVE: She remains in the ICU with a ventriculostomy in place. OBJECTIVE: VITAL SIGNS: Temperature is 99.7 with a T-max of 101.1 yesterday, pulse 92, and blood pressure 127/74. 24-hour intake 2320, output 2917. HEENT: She has some herniation of her brain outside the skull in the right. Oropharynx clear. NECK: Trach in good position. LUNGS: Clear. CARDIAC: S1 and S2, regular. ABDOMEN: Soft. EXTREMITIES: Trace edema throughout. LABORATORY DATA: Sodium 142, potassium 4.1, BUN 10, creatinine 0.5, and glucose 111. ASSESSMENT: 1. Fever. 2. Brain bleed. 3. Hydrocephalus. PLAN: Reculture and go ahead and start empiric antibiotics given her extreme risk for infection. Job ID: [id number]
[2018-01-10] MEDS: levETIRAcetam In NaCl (Iso-Os) 1,000 MG in Premix Bag 1 BAG IVPB SCH ×2 (09:58→22:56)
[2018-01-10] MEDS: Vancomycin HCl 1 GM in Premix Bag 1 BAG IVPB SCH ×2 (09:58→21:12)
[2018-01-10] MEDS: Lisinopril 5 MG TAB PO SCH (09:58)
[2018-01-10] MEDS: Pantoprazole 40 MG VIAL IVP SCH (09:59)
[2018-01-10] MEDS: Glycopyrrolate 1 MG TAB PER TUBE SCH ×3 (10:00→21:33)
[2018-01-10] MEDS: Acetaminophen 325 MG TAB PO PRN ×2 (10:19→21:33)
[2018-01-10] MEDS: Hydrocortisone 1% Cream 30 GM TUBE TOP SCH (10:55)
[2018-01-10] MEDS: Scopolamine 1.5 mg/72 hour Patch TOP SCH (11:51)
[2018-01-10] MEDS: Piperacillin/Tazobactam 3.375 GM in Sodium Chloride 0.9% 100 ML IVPB SCH ×2 (11:52→18:47)
--- NOTE | 2018-01-10 14:42 | PRG ---
DATE OF SERVICE: 01/10/2018 SUBJECTIVE: Ms. Norwood started to have fever again. She has not recovered consciousness. She is not interacting with anybody. No seizure activity noted. OBJECTIVE: VITAL SIGNS: T-max was 101 and she is currently 99.7, blood pressure 112/55, pulse 102, and respirations 25. HEENT: Her eyes are closed, may be partially open. The eye movements are disconjugate. Pupils are right side about 4 mm, the left side about 3 mm and reactive, but sluggishly so, and she has a ventriculostomy drain in place still. LUNGS: Clear. S1 and S2 regular rate. SKIN: Rash is completely resolved. EXTREMITIES: She does not move her extremities on command. LABORATORY DATA: White cell count 8.5, hemoglobin 8.2, platelets 522. Sodium 142, creatinine 0.52. CSF culture was submitted, moderate WBC seen, no organisms seen. The patient is currently on Zosyn and vancomycin. We will transition her to cefepime and vancomycin. Apparently, Dr. Jeong, is going to talk to the family about withdrawing care in view of the poor likelihood of functional recovery. Job ID: [id number]
[2018-01-10] MEDS: Sodium Chloride 0.9% 1,000 ML IV SCH (18:51)
[2018-01-11] MEDS: Piperacillin/Tazobactam 3.375 GM in Sodium Chloride 0.9% 100 ML IVPB SCH ×4 (01:22→17:49)
[2018-01-11] MEDS: Acetaminophen 325 MG TAB PO PRN ×2 (02:11→13:24)
[2018-01-11 05:41] LABS: Hemoglobin 10.7 g/dL (12.0-16.0); Mean Corpuscular HGB CONC 31.5 g/dL (32.0-36.0); Mean Corpuscular Volume 95.3 fL (78.0-98.0); Mean Platelet Volume 7.1 fL (7.4-10.4); Platelet Count 579 thou/uL (130-400); RBC Distribution Width 16.7 % (11.5-14.5); Red Blood Cell (RBC) Count 3.58 mill/uL (4.20-5.40); White Blood Cell (WBC) Count 15.4 thou/uL (4.8-10.8)
[2018-01-11 05:58] LABS: Band 16 % (5-11); Lymphocytes 2 % (21-51); MDiff Complete? YES; Neutrophil 82 % (42-75)
[2018-01-11 06:05] LABS: Anion Gap 17 mmol/L (10-20); BUN (Urea Nitrogen) 20 mg/dL (7.0-18.7); Calc. Creatinine Clearance 108 mL/min (70-130); Calcium 8.9 mg/dL (7.8-10.44); Carbon Dioxide 21 mmol/L (22-29); Chloride 107 mmol/L (98-107); Estimated GFR-MDRD 64; Glucose 174 mg/dL (70-105); Magnesium 1.8 mg/dL (1.6-2.6); Phosphorus 4.5 mg/dL (2.3-4.7); Potassium 4.6 mmol/L (3.5-5.1); Sodium 140 mmol/L (136-145)
--- NOTE | 2018-01-11 08:16 | PRG ---
DATE OF SERVICE: 01/11/2018 SUBJECTIVE: The patient remains in the ICU with a ventricular drain in place. OBJECTIVE: VITAL SIGNS: Her temperature is 100.7 with a T-max of 102.0, pulse 124, and blood pressure 130/79. 24-hour intake 3527, output 1909. NEUROLOGICAL: She has a little bit of facial grimace. She does not follow any commands. HEENT: Unchanged. NECK: Trach in good position. LUNGS: Clear. CARDIAC: S1 and S2, regular. ABDOMEN: Soft, nontender. EXTREMITIES: Trace edema. LABORATORY: White blood cell count 15.4, hematocrit 34.1, and platelet count 579. Sodium 140, potassium 4.6, chloride 107, CO2 of 21, BUN 20, creatinine 0.9, and glucose 174. Cultures show no bacteria on the Gram stain from the CSF yesterday. ASSESSMENT: 1. Fever. 2. Brain bleed. 3. Hydrocephalus. PLAN: The patient continues on piperacillin and vancomycin. Family is contemplating of withdrawing care. Job ID: [id number]
[2018-01-11] MEDS: Pantoprazole 40 MG VIAL IVP SCH (13:20)
[2018-01-11] MEDS: Vancomycin HCl 1 GM in Premix Bag 1 BAG IVPB SCH ×2 (13:20→22:04)
[2018-01-11] MEDS: levETIRAcetam In NaCl (Iso-Os) 1,000 MG in Premix Bag 1 BAG IVPB SCH ×2 (13:21→21:55)
[2018-01-11] MEDS: Lisinopril 5 MG TAB PO SCH (13:22)
[2018-01-11] MEDS: Glycopyrrolate 1 MG TAB PER TUBE SCH ×3 (13:22→22:04)
[2018-01-11] MEDS: Hydrocortisone 1% Cream 30 GM TUBE TOP SCH (13:25)
[2018-01-11] MEDS: Sodium Chloride 0.9% 1,000 ML IV SCH (13:28)
--- NOTE | 2018-01-11 18:26 | PDOC.PN ---
- Subjective Encounter Start Date: 01/11/18 Encounter Start Time: 10:35 -: non-verbal - Objective Resuscitation Status - Order Detail: 01/01/18 12:06 Resuscitation Status Routine Resuscitation Status: FULL: Full Resuscitation Discussed with: per previous order Vital Signs & Weight: Vital Signs (12 hours) Temp Pulse Pulse Pulse Resp BP BP 01/11/18 13:22 137 H 123/71 01/11/18 12:39 133 H 30 H 01/11/18 12:00 101.3 F H 01/11/18 11:16 128 H 128 H 103/65 01/11/18 09:45 01/11/18 09:39 117 H 32 H 01/11/18 08:00 99.3 F BP Pulse Ox Pulse Ox Pulse Ox 01/11/18 13:22 01/11/18 12:39 100 01/11/18 12:00 01/11/18 11:16 102/67 100 100 01/11/18 09:45 100 01/11/18 09:39 100 01/11/18 08:00 100 Weight Admit Weight 214 lb 8.015 oz Weight 215 lb 13.321 oz Most Recent Monitor Data Heart Rate from ECG 130 NIBP 110/69 NIBP BP-Mean 82 Respiration from ECG 30 SpO2 100 I&O: 01/10/18 01/11/18 01/12/18 06:59 06:59 06:59 Intake Total 2320 3527 990 Output Total 2917 1909 237 Balance -597 1618 753 Result Diagrams: 01/11/18 04:25 01/11/18 04:25 Phys Exam - Physical Examination Constitutional: NAD Non-verbal Cranial drain. Respiratory: no wheezing, no rales, no rhonchi Cardiovascular: RRR, no significant murmur Gastrointestinal: soft, no distention Generalized edema. Non-verbal, no significant response to external stim. Dx/Plan (1) Contact dermatitis Code(s): L25.9 - UNSPECIFIED CONTACT DERMATITIS, UNSPECIFIED CAUSE Status: Acute Qualifiers: Contact dermatitis type: allergic Contact dermatitis trigger: other chemical product Qualified Code(s): L23.5 - Allergic contact dermatitis due to other chemical products Comment: Contact vs. drug related. stopped all meds except Keppra. Will avoid penicillins. Steriods (2) Hydrocephalus Code(s): G91.9 - HYDROCEPHALUS, UNSPECIFIED Status: Acute (3) UTI (urinary tract infection) Status: Acute Qualifiers: Urinary tract infection type: site unspecified Hematuria presence: without hematuria Qualified Code(s): N39.0 - Urinary tract infection, site not specified (4) ICH (intracerebral hemorrhage) Code(s): I61.9 - NONTRAUMATIC INTRACEREBRAL HEMORRHAGE, UNSPECIFIED Status: Acute Qualifiers: Intracerebral hemorrhage etiology: nontraumatic Laterality: left Comment: S/ P craniotomy and drain placement (5) Status post craniectomy Code(s): Z98.890 - OTHER SPECIFIED POSTPROCEDURAL STATES Status: Acute - Plan * Neurosurgery discussed with patient's family today. Patient may be as good as she can be expected to be. May not have significant additional recovery. Option would include converting to permanent internal drain v. withdrawal of interventions. Family has not made any specific decisions as of yet. * Continue Abx.
--- NOTE | 2018-01-11 18:27 | PRG ---
DATE OF SERVICE: 01/11/2018 SUBJECTIVE: I visited with Ms. Norwood in her ICU room this morning. Neurologically, she remains the same. She is comatose. She has a ventriculostomy drain in place, which continues to drain with blood-tinged drainage. I had a lengthy meeting with several family members this morning to bring them up-to-date with all of the latest images and to develop a care plan moving forward. I did indicate them that she has a significant neurologic deficit and her recovery could potentially be a very prolonged one. I also indicated them that I believe it is unlikely she is going to return to independent functional status. We will continue with EVD drainage over the course of the weekend. My original plan of placing a shunt and returning the bone flap has been delayed indefinitely secondary to recurrent hemorrhage with the increase mass effect. She is currently being evaluated and followed by our pulmonary colleagues as well as Dr. Villegas and our Hospitalist Service. My plan is to again meet with the family in the beginning part of this next week and we will need to start working toward disposition. Job ID: [id number]
[2018-01-11 20:50] LABS: Vancomycin, Trough 17.6 ug/mL
[2018-01-12] MEDS: Piperacillin/Tazobactam 3.375 GM in Sodium Chloride 0.9% 100 ML IVPB SCH ×3 (01:14→11:44)
[2018-01-12 05:15] LABS: #Eosinphils 0.8 thou/uL (0.0-0.7); #Lymphocytes 0.7 thou/uL (1.20-3.40); #Monocytes 0.3 thou/uL (0.11-0.59); #Neutrophils 11.6 thou/uL (1.40-6.50); %Basophils 0.1 % (0.0-1.0); %Eosinophils 5.8 % (0.0-10.0); %Lymphocytes 5.5 % (21.0-51.0); %Neutrophils 86.6 % (42.0-75.0); Mean Corpuscular HGB CONC 32.1 g/dL (32.0-36.0); Mean Corpuscular Hemoglobin 30.5 pg (27.0-31.0); Mean Corpuscular Volume 95.1 fL (78.0-98.0); Mean Platelet Volume 7.4 fL (7.4-10.4); Platelet Count 417 thou/uL (130-400); RBC Distribution Width 16.4 % (11.5-14.5); Red Blood Cell (RBC) Count 2.96 mill/uL (4.20-5.40); White Blood Cell (WBC) Count 13.3 thou/uL (4.8-10.8)
[2018-01-12 05:22] LABS: Anion Gap 14 mmol/L (10-20); BUN (Urea Nitrogen) 25 mg/dL (7.0-18.7); Calc. Creatinine Clearance 129 mL/min (70-130); Calcium 8.6 mg/dL (7.8-10.44); Carbon Dioxide 22 mmol/L (22-29); Chloride 108 mmol/L (98-107); Estimated GFR-MDRD 72; Glucose 140 mg/dL (70-105); Magnesium 2.2 mg/dL (1.6-2.6); Potassium 4.3 mmol/L (3.5-5.1); Sodium 140 mmol/L (136-145)
[2018-01-12 05:23] LABS: Phosphorus 4.3 mg/dL (2.3-4.7)
--- NOTE | 2018-01-12 09:38 | PRG ---
DATE OF SERVICE: 01/12/2018 NEUROSURGERY PROGRESS NOTE I saw Brigida Norwood in the ICU room this morning. She had a right MCA aneurysm coiled and hemicraniectomy in the past. She returned with some worsening hydrocephalus for which an EVD was placed. Ms. Norwood has some red skin and some exfoliation of the left arm. She is on vancomycin. Ms. Norwood's heart rate is in the 110s to 130s. Her blood pressures are in the 80s to 120s. The EVD is open at 5 mL and that has been between 0 and 5 mL out per hour. On examination, Ms. Norwood is purposeful with the right upper and lower extremities. She does not make an attempt to speak to me. The left arm is not moving. I am unsure as to what is causing the erythematous changes in the skin. I suspect the vancomycin could be or Keppra. We will change one of these medications and see if it improves. I will ask Dr. Villegas to consider changing antibiotics if he believes this is the vancomycin red man reaction. Job ID: [id number]
[2018-01-12] MEDS: Glycopyrrolate 1 MG TAB PER TUBE SCH ×3 (10:21→20:37)
[2018-01-12] MEDS: levETIRAcetam In NaCl (Iso-Os) 1,000 MG in Premix Bag 1 BAG IVPB SCH ×2 (10:21→20:37)
[2018-01-12] MEDS: Vancomycin HCl 1 GM in Premix Bag 1 BAG IVPB SCH (10:21)
[2018-01-12] MEDS: Hydrocortisone 1% Cream 30 GM TUBE TOP SCH (10:22)
[2018-01-12] MEDS: Lisinopril 5 MG TAB PO SCH (10:22)
[2018-01-12] MEDS: Pantoprazole 40 MG VIAL IVP SCH (10:22)
[2018-01-12] MEDS: Sodium Chloride 0.9% 1,000 ML IV SCH (10:25)
[2018-01-12] MEDS: Acetaminophen 325 MG TAB PO PRN (10:56)
[2018-01-12] MEDS ORDERED: Sodium Chloride 0.9% 1,000 ML IV SCH (10:59)
--- NOTE | 2018-01-12 11:30 | PRG ---
DATE OF SERVICE: 01/12/2018 SERVICE: Pulmonary Medicine. INTERVAL HISTORY: The patient is doing really well from respiratory standpoint. She had no significant change in her neurologic function overnight. She has a ventriculostomy drain in good position. It continues to drain some fluid. Otherwise, nursing reports no significant overnight events. She has +4 L over the last 48 hours. LABORATORY DATA: WBC 13.3, hemoglobin 9.0, and platelets 417,000. Basic metabolic profile is essentially unremarkable. Magnesium is 2.2. Urine culture is growing yeast. Blood culture has previously grown coag-negative Staph. This was only 02/08. ASSESSMENT: 1. Hydrocephalus. 2. Static encephalopathy. 3. Sepsis. 4. Acute hypoxic respiratory failure. DISCUSSION AND PLAN: We will continue our supportive care. At this point, she has high nursing requirements, requiring her to be in the ICU. Pulmonary Critical Care will continue to follow along in this location. At this point, the patient has been removed from her injury by fairly significant amount of time. The likelihood of her making a significant neurologic recovery beyond where she currently is essentially non-existent. We will continue our family discussions about goals of care. Job ID: [id number]
[2018-01-12] MEDS: Micafungin 100 MG in Sodium Chloride 0.9% 100 ML IVPB SCH (11:45)
--- NOTE | 2018-01-12 14:20 | PDOC.PN ---
- Subjective Encounter Start Date: 01/12/18 Encounter Start Time: 09:20 Non-verbal. - Objective Resuscitation Status - Order Detail: 01/01/18 12:06 Resuscitation Status Routine Resuscitation Status: FULL: Full Resuscitation Discussed with: per previous order Vital Signs & Weight: Vital Signs (12 hours) Pulse Resp Pulse Ox 01/12/18 12:25 100 01/12/18 12:22 112 H 25 H 100 01/12/18 10:22 116 H 01/12/18 07:19 100 Weight Admit Weight 214 lb 8.015 oz Weight 200 lb 2.876 oz Most Recent Monitor Data Heart Rate from ECG 112 NIBP 120/75 NIBP BP-Mean 90 Respiration from ECG 27 SpO2 100 I&O: 01/11/18 01/12/18 01/13/18 06:59 06:59 06:59 Intake Total 3527 3754.4 Output Total 1909 1520 Balance 1618 2234.4 Result Diagrams: 01/12/18 04:16 01/12/18 04:16 Phys Exam - Physical Examination Constitutional: NAD Non-verbal. No distress. Respiratory: no wheezing, no rales Cardiovascular: RRR, no significant murmur Gastrointestinal: soft, no distention, positive bowel sounds Musculoskeletal: no edema Purposeful scratching with LUE. Moves right foot spont. No movement noted on left. Deviation from normal: Patches of erythema with some superficial desquamation. Spares some areas. -: Warm and blanchable. Dx/Plan (1) Contact dermatitis Code(s): L25.9 - UNSPECIFIED CONTACT DERMATITIS, UNSPECIFIED CAUSE Status: Acute Qualifiers: Contact dermatitis type: allergic Contact dermatitis trigger: other chemical product Qualified Code(s): L23.5 - Allergic contact dermatitis due to other chemical products Comment: Likely drug eruption. Meds have been changed. Was admitted previously and went to LT[facility]. Appears that she was admitted her this time with the dermatitis. Could be a large number of potential culprits. Does not seem to be much improved. Continue benadryl and topical steroids. 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 Had right craniectomy with evacuation of hemorrage and coiling of aneurysm. Had subsequent edema at craniotomy site. Scan revealed hydrocephalus. External drain placed. Neurosurg admitted. (3) UTI (urinary tract infection) Status: Acute Qualifiers: Urinary tract infection type: site unspecified Hematuria presence: without hematuria Qualified Code(s): N39.0 - Urinary tract infection, site not specified Comment: Still growing Pseudomonas. Also some yeast. Febrile again. ID following. On Linezolid, cefepime and micafungin. (4) ICH (intracerebral hemorrhage) Code(s): I61.9 - NONTRAUMATIC INTRACEREBRAL HEMORRHAGE, UNSPECIFIED Status: Acute Qualifiers: Intracerebral hemorrhage etiology: nontraumatic Laterality: left Comment: S/P right hemicraniectomy at initial admission. Had ruptured aneurysm coiled. (5) Status post craniectomy Code(s): Z98.890 - OTHER SPECIFIED POSTPROCEDURAL STATES Status: Acute - Plan * Admitted to Neurosurg. * ID, Pulmonology also following. * Continue to treat the apparent drug eruption with benadryl and topical steroids. That would potentially benefit from systemic steroids, but given the gravity of the other co-morbidities, this is secondary.
--- NOTE | 2018-01-12 15:29 | RAD ---
PORTABLE CHEST: DATE: 01/12/2018. PROVIDED CLINICAL HISTORY: Fever. FINDINGS: Comparison 12/28/2017. Cardiac and mediastinal silhouette is unchanged in appearance. Tracheostomy appliance is again noted. No focal consolidation, pleural fluid, or pneumothorax apparent. Right-si ded PICC line is noted, in similar position. IMPRESSION: No evidence for an acute cardiopulmonary process. POS: [facility]
[2018-01-12] MEDS: Cefepime 2 GM in Sodium Chloride 0.9% 100 ML IVPB SCH (20:32)
[2018-01-12] MEDS: Linezolid 600 MG in Premix Bag 1 BAG IVPB SCH (20:36)
[2018-01-13] MEDS: Cefepime 2 GM in Sodium Chloride 0.9% 100 ML IVPB SCH ×2 (09:19→20:15)
[2018-01-13] MEDS: Glycopyrrolate 1 MG TAB PER TUBE SCH ×3 (09:20→20:15)
[2018-01-13] MEDS: Pantoprazole 40 MG VIAL IVP SCH (09:21)
[2018-01-13] MEDS: Lisinopril 5 MG TAB PO SCH (09:21)
[2018-01-13] MEDS: levETIRAcetam In NaCl (Iso-Os) 1,000 MG in Premix Bag 1 BAG IVPB SCH ×2 (09:22→20:15)
[2018-01-13] MEDS: Hydrocortisone 1% Cream 30 GM TUBE TOP SCH (09:27)
--- NOTE | 2018-01-13 09:27 | PRG ---
DATE OF SERVICE: 01/13/2018 NEUROSURGERY PROGRESS NOTE I saw Ms. Norwood in her ICU room this morning. She continues to be drained with her EVD and remains on antibiotics. The red skin rash has not changed much since yesterday. Overnight, her T-max was 101.2 degrees Fahrenheit. On examination, there is purposeful motion of the right upper and lower extremities and nothing on the left. There is no speech. She does not open her eyes to stimulus or command. I examined the external ventricular drain and there were some clots in it. I tried to mobilize the clots manually, but we will return and flush them through as most of this is at the stopcock and beyond. I think, we will have a good chance of getting it following again. Long-term, Ms. Norwood has significant neurological deficits. We will continue to nurse her through this episode, however. Job ID: [id number]
[2018-01-13] MEDS: Linezolid 600 MG in Premix Bag 1 BAG IVPB SCH ×2 (09:55→20:15)
--- NOTE | 2018-01-13 12:13 | PRG ---
DATE OF SERVICE: 01/13/2018 SERVICE: Pulmonary Medicine. INTERVAL HISTORY: The patient is doing okay from respiratory standpoint. She is breathing comfortably. There has been no interval change to her condition. Erythroderma is roughly stable. She has been transitioned off her vancomycin. PHYSICAL EXAMINATION: VITAL SIGNS: Afebrile with T-max overnight of 101.2, pulse 90, blood pressure 116/87, respirations 21, and saturation 100% on T-collar. GENERAL: The patient is awake. She does not follow any commands and does not attend. HEENT: Normocephalic. There is external ventricular drain in place. Oral mucosa is moist without lesions. LUNGS: Rhonchi present bilaterally. There is no prolonged expiratory phase or wheezing appreciated. HEART: Normal rate and regular. ABDOMEN: Soft, nontender, and nondistended. Bowel sounds are positive. MUSCULOSKELETAL: No cyanosis or clubbing. There is diffuse pitting throughout. It is more severe in the arms, and hips. GENITOURINARY: Ortega catheter in place. IMAGING: Chest x-ray demonstrates no evidence of an acute cardiopulmonary abnormality. ASSESSMENT: 1. Hydrocephalus. 2. Static encephalopathy. 3. Sepsis. 4. Acute hypoxic respiratory failure, improving. DISCUSSION AND PLAN: We will continue supportive care including antibiotics. She is getting a touch volume overload, so I will give her one time dose of Lasix. I will exchange the Ortega catheter, as it has significant growth on the tube itself. Pulmonary/Critical Care will continue to follow along in this location. Job ID: [id number] MTDD
[2018-01-13] MEDS: Scopolamine 1.5 mg/72 hour Patch TOP SCH (12:21)
[2018-01-13] MEDS: Micafungin 100 MG in Sodium Chloride 0.9% 100 ML IVPB SCH (12:23)
--- NOTE | 2018-01-13 14:51 | PDOC.PN ---
- Subjective Encounter Start Date: 01/13/18 Encounter Start Time: 08:30 Non verbal. - Objective Resuscitation Status - Order Detail: 01/01/18 12:06 Resuscitation Status Routine Resuscitation Status: FULL: Full Resuscitation Discussed with: per previous order Vital Signs & Weight: Vital Signs (12 hours) Temp Pulse Pulse Pulse Resp BP BP 01/13/18 12:40 93 19 01/13/18 12:00 98.8 F 01/13/18 09:26 93 100 144/90 H 01/13/18 09:21 86 124/88 01/13/18 07:47 01/13/18 07:26 01/13/18 07:23 86 23 H 01/13/18 07:00 98.8 F 01/13/18 04:00 99.2 F BP Pulse Ox Pulse Ox Pulse Ox 01/13/18 12:40 100 01/13/18 12:00 01/13/18 09:26 124/88 100 96 01/13/18 09:21 01/13/18 07:47 100 01/13/18 07:26 100 01/13/18 07:23 100 01/13/18 07:00 01/13/18 04:00 Weight Admit Weight 214 lb 8.015 oz Weight 201 lb 0.985 oz Most Recent Monitor Data Heart Rate from ECG 104 NIBP 128/82 NIBP BP-Mean 97 Respiration from ECG 27 SpO2 100 I&O: 01/12/18 01/13/18 01/14/18 06:59 06:59 06:59 Intake Total 3754.4 3205.3 680 Output Total 1520 1629 486 Balance 2234.4 1576.3 194 Result Diagrams: 01/12/18 04:16 01/12/18 04:16 Phys Exam - Physical Examination Constitutional: NAD Respiratory: no wheezing, no rales, no rhonchi, clear to auscultation bilateral Cardiovascular: RRR, no significant murmur Gastrointestinal: soft, non-tender, no distention Musculoskeletal: no edema Left hemiplegia. Some spont movement of right extremities. Dx/Plan (1) Contact dermatitis Code(s): L25.9 - UNSPECIFIED CONTACT DERMATITIS, UNSPECIFIED CAUSE Status: Acute Qualifiers: Contact dermatitis type: allergic Contact dermatitis trigger: other chemical product Qualified Code(s): L23.5 - Allergic contact dermatitis due to other chemical products Comment: Likely drug eruption. Meds have been changed. Was admitted previously and went to LTAC. Appears that she was admitted her this time with the dermatitis. Could be a large number of potential culprits. May be slightly improved today. Continue benadryl and topical steroids. 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 Had right craniectomy with evacuation of hemorrage and coiling of aneurysm. Had subsequent edema at craniotomy site. Scan revealed hydrocephalus. External drain placed. Working to declot the drain today. (3) UTI (urinary tract infection) Status: Acute Qualifiers: Urinary tract infection type: site unspecified Hematuria presence: without hematuria Qualified Code(s): N39.0 - Urinary tract infection, site not specified Comment: Still growing Pseudomonas. Also some yeast. Febrile again. ID following. On Linezolid, cefepime and micafungin. Ortega exchanged. (4) ICH (intracerebral hemorrhage) Code(s): I61.9 - NONTRAUMATIC INTRACEREBRAL HEMORRHAGE, UNSPECIFIED Status: Acute Qualifiers: Intracerebral hemorrhage etiology: nontraumatic Laterality: left Comment: S/P right hemicraniectomy at initial admission. Had ruptured aneurysm coiled. (5) Status post craniectomy Code(s): Z98.890 - OTHER SPECIFIED POSTPROCEDURAL STATES Status: Acute - Plan * Still febrile. Only source appears to be persistent UTI or possibly central fevers. Could also be related to drug eruption. * Unfortunately, the dermatitis may take several weeks to fully resolve after the culprit is removed. Has had multiple new drug exposures starting with her original admission. Difficult to identify source. Continue symptomatic treatment.
[2018-01-13] MEDS: diphenhydrAMINE 50 MG/ML VIAL IVP PRN (16:16)
[2018-01-13] MEDS ORDERED: Norepinephrine 8 MG/0.9% NS 0 ML ONE (16:56)
--- NOTE | 2018-01-13 21:24 | PRG ---
DATE OF SERVICE: 01/12/2018 SUBJECTIVE: Ms. Norwood has developed recrudescence of the eruption. She has some peeling now in the appendicular structures skin surfaces in the extensor aspect. OBJECTIVE: VITAL SIGNS: T-max 101.3, BP 120/75, pulse 112, and respirations 25. HEENT: Ocular movements are conjugate. Pupils are unequal as previously noted with pupillary reacting sluggishly. LUNGS: Symmetric air entry. HEART: S1 and S2, regular rate. ABDOMEN: Soft. She has diffuse erythematous eruption confluent affecting the appendicular structures. ABDOMEN AND CHEST: There is some exfoliation now associated with it, particularly in the arms, legs, and thighs. She has a PICC line in the right upper extremity and a Ortega catheter. I's and O's have been negative and positive for the past 48 hours. LABORATORY DATA: Microbiology with mostly colonizing organisms including coagulase negative Staph, likely a contaminant of the sample. White cell count is up to 13.3, hemoglobin 9, and platelets 417 with 86% neutrophils. Eosinophils are 0.8 and chemistry with a creatinine of 0.85 and sodium 140. ASSESSMENT: Hypertension, asthma, brain aneurysm with hemorrhage, craniectomy, clipping of aneurysm and now this admission for this drug hypersensitivity reaction. After improvement, now she has recrudescence of the erythema, which is diffuse and now associated with exfoliation. 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 It looks like Zosyn is the culprit here. We will discontinue it and switch her to cefepime until this fever issue is resolved. The fever had resumed even before the Zosyn was started, so there might be another element contributing to it. We will also discontinue vancomycin since there would be questions regarding that agent as well. Job ID: [id number] [facility]
[2018-01-14 04:39] LABS: #Eosinphils 0.4 thou/uL (0.0-0.7); #Monocytes 0.5 thou/uL (0.11-0.59); %Basophils 0.1 % (0.0-1.0); %Eosinophils 5.7 % (0.0-10.0); %Lymphocytes 15.1 % (21.0-51.0); %Monocytes 6.9 % (0.0-10.0); %Neutrophils 72.3 % (42.0-75.0); Hemoglobin 7.8 g/dL (12.0-16.0); Mean Corpuscular HGB CONC 32.9 g/dL (32.0-36.0); Mean Corpuscular Volume 94.1 fL (78.0-98.0); Mean Platelet Volume 7.3 fL (7.4-10.4); Platelet Count 340 thou/uL (130-400); RBC Distribution Width 15.5 % (11.5-14.5); Red Blood Cell (RBC) Count 2.51 mill/uL (4.20-5.40); White Blood Cell (WBC) Count 6.9 thou/uL (4.8-10.8)
[2018-01-14 05:02] LABS: Anion Gap 11 mmol/L (10-20); BUN (Urea Nitrogen) 14 mg/dL (7.0-18.7); Calc. Creatinine Clearance 150 mL/min (70-130); Calcium 8.7 mg/dL (7.8-10.44); Carbon Dioxide 25 mmol/L (22-29); Chloride 107 mmol/L (98-107); Estimated GFR-MDRD Greater than 90; Glucose 120 mg/dL (70-105); Potassium 3.7 mmol/L (3.5-5.1); Sodium 139 mmol/L (136-145)
--- NOTE | 2018-01-14 08:37 | PRG ---
DATE OF SERVICE: 01/14/2018 SUBJECTIVE: She is about the same. OBJECTIVE: VITAL SIGNS: Temperature 98.5 with a T-max of 100.8, pulse 91, and blood pressure 156/100. She still has an EVD in place. HEENT: Remarkable for small amount of herniation on her right skull area. NECK: Trach in good position. LUNGS: Clear. CARDIAC: S1 and S2, regular. ABDOMEN: Soft. EXTREMITIES: No edema. LABORATORY DATA: White blood cell count 6.9, hematocrit 23.6, and platelet count 340. Sodium 139, potassium 3.7, chloride 107, CO2 of 25, BUN 14, creatinine 0.6, and glucose 120. ASSESSMENT: 1. Fungal urinary tract infection versus colonization with presumptive Roseann tropicalis. 2. Urinary tract infection versus colonization with Pseudomonas aeruginosa. PLAN: The patient is continuing with cefepime, Zyvox, and micafungin. Her fever trend does appear to be better. Otherwise, we are continuing supportive care. I do not think the family is going to allow withdrawal of care, so at some point, her shunt will probably have to be internalized, so that we can move forward with placement procedures. Job ID: [id number]
[2018-01-14] MEDS: Cefepime 2 GM in Sodium Chloride 0.9% 100 ML IVPB SCH ×2 (10:22→20:35)
[2018-01-14] MEDS: levETIRAcetam In NaCl (Iso-Os) 1,000 MG in Premix Bag 1 BAG IVPB SCH ×2 (10:22→20:35)
[2018-01-14] MEDS: Glycopyrrolate 1 MG TAB PER TUBE SCH ×3 (10:25→20:35)
[2018-01-14] MEDS: Pantoprazole 40 MG VIAL IVP SCH (10:26)
[2018-01-14] MEDS: Lisinopril 5 MG TAB PO SCH (10:34)
[2018-01-14] MEDS: Linezolid 600 MG in Premix Bag 1 BAG IVPB SCH ×2 (10:34→20:34)
[2018-01-14] MEDS: Hydrocortisone 1% Cream 30 GM TUBE TOP SCH (10:38)
[2018-01-14] MEDS: Micafungin 100 MG in Sodium Chloride 0.9% 100 ML IVPB SCH (12:36)
--- NOTE | 2018-01-14 20:31 | PDOC.PN ---
- Subjective Encounter Start Date: 01/14/18 Encounter Start Time: 08:30 -: non-verbal - Objective Resuscitation Status - Order Detail: 01/01/18 12:06 Resuscitation Status Routine Resuscitation Status: FULL: Full Resuscitation Discussed with: per previous order Vital Signs & Weight: Vital Signs (12 hours) Temp Pulse Resp Pulse Ox 01/14/18 18:13 91 24 H 100 01/14/18 16:00 98.8 F 01/14/18 14:29 95 26 H 100 01/14/18 14:00 99.6 F 01/14/18 12:00 101.2 F H 01/14/18 10:34 92 01/14/18 10:17 92 20 100 Weight Admit Weight 214 lb 8.015 oz Weight 211 lb 3.245 oz Most Recent Monitor Data Heart Rate from ECG 91 NIBP 153/92 NIBP BP-Mean 112 Respiration from ECG 23 SpO2 100 I&O: 01/13/18 01/14/18 01/15/18 06:59 06:59 06:59 Intake Total 3205.3 3375 1743 Output Total 1629 2130 1819 Balance 1576.3 1245 -76 Result Diagrams: 01/14/18 04:00 01/14/18 04:00 Phys Exam - Physical Examination Constitutional: NAD Trach, PEG Respiratory: no wheezing, no rales, no rhonchi, clear to auscultation bilateral Cardiovascular: RRR, no significant murmur Gastrointestinal: soft, non-tender, no distention Musculoskeletal: no edema Some spont movement on the right. No movement on the left. Does not open eyes or respond to ext stim. Deviation from normal: Erythema of the skin is improving. Dx/Plan (1) Contact dermatitis Code(s): L25.9 - UNSPECIFIED CONTACT DERMATITIS, UNSPECIFIED CAUSE Status: Acute Qualifiers: Contact dermatitis type: allergic Contact dermatitis trigger: other chemical product Qualified Code(s): L23.5 - Allergic contact dermatitis due to other chemical products Comment: Clearly improved today. Likely drug eruption. Meds have been changed. Was admitted previously and went to LTAC. Appears that she was admitted her this time with the dermatitis. Could be a large number of potential culprits. Continue benadryl and topical steroids. 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 Had right craniectomy with evacuation of hemorrage and coiling of aneurysm. Had subsequent edema at craniotomy site. Scan revealed hydrocephalus. External drain placed. Appears to be working well. (3) UTI (urinary tract infection) Status: Acute Qualifiers: Urinary tract infection type: site unspecified Hematuria presence: without hematuria Qualified Code(s): N39.0 - Urinary tract infection, site not specified Comment: Still growing Pseudomonas. Also some yeast. Febrile again. ID following. On Linezolid, cefepime and micafungin. Ortega exchanged. (4) ICH (intracerebral hemorrhage) Code(s): I61.9 - NONTRAUMATIC INTRACEREBRAL HEMORRHAGE, UNSPECIFIED Status: Acute Qualifiers: Intracerebral hemorrhage etiology: nontraumatic Laterality: left Comment: S/P right hemicraniectomy at initial admission. Had ruptured aneurysm coiled. (5) Status post craniectomy Code(s): Z98.890 - OTHER SPECIFIED POSTPROCEDURAL STATES Status: Acute - Plan * Patient appears to be stable with her overall neuro status. * Dermatitis is improving. Fever improving. * Defer to neurosurg to manage drain. * Will need placement when drain situation is finalized.
[2018-01-15 05:10] LABS: #Eosinphils 0.4 thou/uL (0.0-0.7); #Lymphocytes 1.3 thou/uL (1.20-3.40); #Monocytes 0.5 thou/uL (0.11-0.59); #Neutrophils 4.2 thou/uL (1.40-6.50); %Basophils 0.3 % (0.0-1.0); %Eosinophils 6.8 % (0.0-10.0); %Lymphocytes 20.6 % (21.0-51.0); %Monocytes 7.9 % (0.0-10.0); %Neutrophils 64.4 % (42.0-75.0); Hemoglobin 7.7 g/dL (12.0-16.0); Mean Corpuscular HGB CONC 32.9 g/dL (32.0-36.0); Mean Corpuscular Hemoglobin 30.8 pg (27.0-31.0); Mean Corpuscular Volume 93.4 fL (78.0-98.0); Mean Platelet Volume 7.7 fL (7.4-10.4); Platelet Count 360 thou/uL (130-400); RBC Distribution Width 15.6 % (11.5-14.5); Red Blood Cell (RBC) Count 2.49 mill/uL (4.20-5.40); White Blood Cell (WBC) Count 6.5 thou/uL (4.8-10.8)
[2018-01-15 05:30] LABS: Anion Gap 12 mmol/L (10-20); BUN (Urea Nitrogen) 11 mg/dL (7.0-18.7); Calc. Creatinine Clearance 182 mL/min (70-130); Calcium 8.7 mg/dL (7.8-10.44); Carbon Dioxide 26 mmol/L (22-29); Chloride 105 mmol/L (98-107); Estimated GFR-MDRD Greater than 90; Glucose 123 mg/dL (70-105); Magnesium 1.8 mg/dL (1.6-2.6); Potassium 3.5 mmol/L (3.5-5.1); Sodium 139 mmol/L (136-145)
--- NOTE | 2018-01-15 08:10 | PRG ---
DATE OF SERVICE: 01/15/2018 SUBJECTIVE: Ms. Norwood this morning is essentially stable to her examination for the last 2 weeks. Her EVD continues to sporadically drain varying from as low as no output up to per hour of serosanguineous CSF, at times more bloody than others. From a neurosurgical perspective, what we have preferred to do today is to clamp her EVD and see how she does from a clinical standpoint. Ultimately, she will be transferred to an LTAC facility going forward. We are still not planning to put the at the present time given her re-hemorrhage. Job ID: [id number]
[2018-01-15] MEDS: Cefepime 2 GM in Sodium Chloride 0.9% 100 ML IVPB SCH ×2 (09:25→19:39)
[2018-01-15] MEDS: levETIRAcetam In NaCl (Iso-Os) 1,000 MG in Premix Bag 1 BAG IVPB SCH ×2 (09:26→19:29)
[2018-01-15] MEDS: Lisinopril 5 MG TAB PO SCH (09:26)
[2018-01-15] MEDS: Glycopyrrolate 1 MG TAB PER TUBE SCH ×3 (09:26→19:28)
[2018-01-15] MEDS: Pantoprazole 40 MG VIAL IVP SCH (09:28)
[2018-01-15] MEDS: Hydrocortisone 1% Cream 30 GM TUBE TOP SCH (09:32)
--- NOTE | 2018-01-15 10:17 | PRG ---
DATE OF SERVICE: 01/15/2018 SUBJECTIVE: The patient remains in the ICU with a ventricular drain in place. OBJECTIVE: VITAL SIGNS: Her temperature is 100.2 with a T-max of 101.2, pulse 99, respiratory rate 28, blood pressure 133/82, and O2 saturation 100%. Intake for the last 24 hours 3146, output 3192. HEENT: Remarkable for slight herniation in the right temporal area. She has an EVD in place. Oropharynx clear. NECK: Trach in good position. LUNGS: Clear to auscultation. CARDIAC: S1 and S2, regular. ABDOMEN: Soft and obese. EXTREMITIES: No edema. LABORATORY DATA: White blood cell count 6.5, hematocrit 23.3, and platelet count 316. Sodium 139, potassium 3.5, chloride 105, CO2 of 26, BUN 11, creatinine 0.6, and glucose 123. ASSESSMENT: 1. Fungal urinary tract infection. 2. Pseudomonal urinary tract infection. 3. Status post tracheostomy for prolonged respiratory failure related to her head bleed. PLAN: 1. She will remain in the ICU until there is definitive treatment for hydrocephalus. 2. She is continuing IV antibiotics, which include cefepime, linezolid, and micafungin. Dr. Villegas is handling the antibiotic issues. Job ID: [id number]
[2018-01-15] MEDS: Linezolid 600 MG in Premix Bag 1 BAG IVPB SCH ×2 (11:27→19:31)
[2018-01-15] MEDS: Micafungin 100 MG in Sodium Chloride 0.9% 100 ML IVPB SCH (11:59)
[2018-01-15] MEDS: Acetaminophen 325 MG TAB PO PRN (19:38)
--- NOTE | 2018-01-15 22:18 | PDOC.PN ---
- Subjective Encounter Start Date: 01/15/18 Encounter Start Time: 13:00 Non verbal. - Objective Resuscitation Status - Order Detail: 01/01/18 12:06 Resuscitation Status Routine Resuscitation Status: FULL: Full Resuscitation Discussed with: per previous order Vital Signs & Weight: Vital Signs (12 hours) Temp Pulse Pulse Resp BP BP Pulse Ox 01/15/18 21:00 99.7 F H 01/15/18 19:09 100 01/15/18 19:00 100.7 F H 01/15/18 18:07 69 24 H 100 01/15/18 16:00 100.3 F H 01/15/18 14:33 91 28 H 100 01/15/18 14:03 75 141/86 H 140/84 01/15/18 12:00 101.4 F H 01/15/18 11:05 92 29 H 100 Weight Admit Weight 214 lb 8.015 oz Weight 204 lb 2.369 oz Most Recent Monitor Data Heart Rate from ECG 66 NIBP 163/90 NIBP BP-Mean 114 Respiration from ECG 21 SpO2 99 I&O: 01/14/18 01/15/18 01/16/18 06:59 06:59 06:59 Intake Total 3375 3146 1844 Output Total 2130 3192 1915 Balance 1245 -46 -71 Result Diagrams: 01/15/18 04:15 01/15/18 04:15 Phys Exam - Physical Examination Constitutional: NAD Respiratory: no wheezing, no rales, no rhonchi Cardiovascular: RRR, no significant murmur, no rub Gastrointestinal: soft, non-tender, no distention, positive bowel sounds Musculoskeletal: no edema Non-responsive. Has some spontaneous movement...mostly scratching, on the right side. Left hemiplegia. Dx/Plan (1) Contact dermatitis Code(s): L25.9 - UNSPECIFIED CONTACT DERMATITIS, UNSPECIFIED CAUSE Status: Acute Qualifiers: Contact dermatitis type: allergic Contact dermatitis trigger: other chemical product Qualified Code(s): L23.5 - Allergic contact dermatitis due to other chemical products Comment: Improving. Likely drug eruption. Meds have been changed. Was admitted previously and went to LTAC. Appears that she was admitted her this time with the dermatitis. Could be a large number of potential culprits. Continue benadryl and topical steroids. 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 Had right craniectomy with evacuation of hemorrage and coiling of aneurysm. Had subsequent edema at craniotomy site. Scan revealed hydrocephalus. External drain placed. Appears to be working intermittently well. (3) UTI (urinary tract infection) Status: Acute Qualifiers: Urinary tract infection type: site unspecified Hematuria presence: without hematuria Qualified Code(s): N39.0 - Urinary tract infection, site not specified Comment: Still growing Pseudomonas. Also some yeast. Febrile again. ID following. On Linezolid, cefepime and micafungin. Ortega exchanged. (4) ICH (intracerebral hemorrhage) Code(s): I61.9 - NONTRAUMATIC INTRACEREBRAL HEMORRHAGE, UNSPECIFIED Status: Acute Qualifiers: Intracerebral hemorrhage etiology: nontraumatic Laterality: left Comment: S/P right hemicraniectomy at initial admission. Had ruptured aneurysm coiled. (5) Status post craniectomy Code(s): Z98.890 - OTHER SPECIFIED POSTPROCEDURAL STATES Status: Acute - Plan * Per Neurosurg. Clamped the external ventricle drain. Will likely need LTACH.
[2018-01-16 03:58] LABS: #Eosinphils 0.1 thou/uL (0.0-0.7); #Lymphocytes 1.4 thou/uL (1.20-3.40); #Monocytes 0.5 thou/uL (0.11-0.59); #Neutrophils 4.1 thou/uL (1.40-6.50); %Eosinophils 2.2 % (0.0-10.0); %Lymphocytes 22.3 % (21.0-51.0); %Monocytes 8.7 % (0.0-10.0); %Neutrophils 66.8 % (42.0-75.0); Mean Corpuscular HGB CONC 33.2 g/dL (32.0-36.0); Mean Corpuscular Hemoglobin 30.8 pg (27.0-31.0); Mean Corpuscular Volume 92.9 fL (78.0-98.0); Mean Platelet Volume 7.1 fL (7.4-10.4); Platelet Count 362 thou/uL (130-400); RBC Distribution Width 15.7 % (11.5-14.5); Red Blood Cell (RBC) Count 2.58 mill/uL (4.20-5.40); White Blood Cell (WBC) Count 6.1 thou/uL (4.8-10.8)
[2018-01-16 04:17] LABS: Anion Gap 13 mmol/L (10-20); BUN (Urea Nitrogen) 9 mg/dL (7.0-18.7); Calc. Creatinine Clearance 170 mL/min (70-130); Carbon Dioxide 26 mmol/L (22-29); Chloride 106 mmol/L (98-107); Estimated GFR-MDRD Greater than 90; Glucose 122 mg/dL (70-105); Magnesium 2.1 mg/dL (1.6-2.6); Potassium 3.6 mmol/L (3.5-5.1); Sodium 141 mmol/L (136-145)
--- NOTE | 2018-01-16 09:23 | PRG ---
DATE OF SERVICE: 01/16/2018 SUBJECTIVE: The patient remains minimally responsive to stimuli. OBJECTIVE: VITAL SIGNS: Temperature is 99.2 with a T-max of 101.4, pulse 93, O2 saturation 99%, respiratory rate 26. Intake for 24 hours 2073, output 2730. HEENT: Unchanged. NECK: Trach in good position. LUNGS: Clear. CARDIAC: S1, S2 regular. ABDOMEN: Soft. EXTREMITIES: Trace edema. LABORATORY DATA: White blood cell count 6.1, hematocrit 24.0, platelet count 362. Sodium 141, potassium 3.6, chloride 106, CO2 of 26, BUN 9, creatinine 0.6, and glucose 122. ASSESSMENT: The patient continues to have intermittent fevers. She has the EVD in place. I am not sure that it is practical to proceed with placement without some kind of definitive treatment to the hydrocephalus as the would likely send her right back. She is continuing her antibiotics. At some point, her CSF probably needs to be resampled. Job ID: [id number]
--- NOTE | 2018-01-16 09:28 | PRG ---
DATE OF SERVICE: 01/16/2018 SUBJECTIVE: Ms. Norwood has now had her EVD clamped for 24 hours, and overall, her examination remained stable. PLAN: Plan will be to continue to keep this clamp and hopefully remove potentially tomorrow or Sunday and then plan for placement at an LTAC facility. Job ID: [id number]
[2018-01-16] MEDS: Linezolid 600 MG in Premix Bag 1 BAG IVPB SCH ×2 (10:00→20:50)
[2018-01-16] MEDS: Lisinopril 5 MG TAB PO SCH (10:00)
[2018-01-16] MEDS: Pantoprazole 40 MG VIAL IVP SCH (10:00)
[2018-01-16] MEDS: Glycopyrrolate 1 MG TAB PER TUBE SCH ×3 (10:00→20:49)
[2018-01-16] MEDS: Micafungin 100 MG in Sodium Chloride 0.9% 100 ML IVPB SCH (10:00)
[2018-01-16] MEDS: levETIRAcetam In NaCl (Iso-Os) 1,000 MG in Premix Bag 1 BAG IVPB SCH ×2 (10:00→20:49)
[2018-01-16] MEDS: Scopolamine 1.5 mg/72 hour Patch TOP SCH (11:38)
[2018-01-16] MEDS: Cefepime 2 GM in Sodium Chloride 0.9% 100 ML IVPB SCH ×2 (11:41→20:49)
[2018-01-16] MEDS: Hydrocortisone 1% Cream 30 GM TUBE TOP SCH (11:43)
--- NOTE | 2018-01-16 12:22 | PDOC.PN ---
- Subjective Encounter Start Date: 01/16/18 Encounter Start Time: 08:00 Subjective: not awake or oriented, moves right side - Objective Resuscitation Status - Order Detail: 01/01/18 12:06 Resuscitation Status Routine Resuscitation Status: FULL: Full Resuscitation Discussed with: per previous order MAR Reviewed: Yes Vital Signs & Weight: Vital Signs (12 hours) Temp Pulse Resp BP Pulse Ox 01/16/18 10:26 87 24 H 100 01/16/18 10:00 87 159/106 H 01/16/18 06:48 108 H 29 H 100 01/16/18 03:00 99.2 F Weight Admit Weight 214 lb 8.015 oz Weight 202 lb 13.204 oz Most Recent Monitor Data Heart Rate from ECG 100 NIBP 159/106 NIBP BP-Mean 123 Respiration from ECG 23 SpO2 100 I&O: 01/15/18 01/16/18 01/17/18 06:59 06:59 06:59 Intake Total 3146 2973 Output Total 3192 2730 Balance -46 243 Result Diagrams: 01/16/18 03:42 01/16/18 03:42 Phys Exam - Physical Examination HEENT: PERRLA, sclera anicteric Neck: no JVD trach collar Respiratory: no wheezing Cardiovascular: RRR, no significant murmur Gastrointestinal: soft, no distention, positive bowel sounds peg+ Musculoskeletal: pulses present chronic left hemiplegia Dx/Plan (1) Hydrocephalus Code(s): G91.9 - HYDROCEPHALUS, UNSPECIFIED Status: Acute Comment: 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 Had right craniectomy with evacuation of hemorrage and coiling of aneurysm. Had subsequent edema at craniotomy site. Scan revealed hydrocephalus. External drain placed. Appears to be working intermittently well. (2) Encephalopathy Code(s): G93.40 - ENCEPHALOPATHY, UNSPECIFIED Status: Acute Comment: chronic with worsoning? (3) Chronic anemia Code(s): D64.9 - ANEMIA, UNSPECIFIED Status: Chronic (4) Seizure disorder Code(s): G40.909 - EPILEPSY, UNSP, NOT INTRACTABLE, WITHOUT STATUS EPILEPTICUS Status: Chronic (5) trach and peg Status: Chronic (6) UTI (urinary tract infection) Status: Acute Qualifiers: Urinary tract infection type: site unspecified Hematuria presence: without hematuria Qualified Code(s): N39.0 - Urinary tract infection, site not specified Comment: Still growing Pseudomonas. Also some yeast. Febrile again. ID following. On Linezolid, cefepime and micafungin. Ortega exchanged. - Plan is on cefepime, zyvox and micafungin -: continue keppra and lisinopril -: ext vent drain is clamped at present -: [facility] prognosis poor -: awaiting ltac placement, likely perm vent drain * . Review of Systems - Medications/Allergies Allergies/Adverse Reactions: Allergies Allergy/AdvReac Type Severity Reaction Status Date / Time piperacillin [From Zosyn] Allergy Severe Rash Verified 01/14/18 09:38 tazobactam [From Zosyn] Allergy Severe Rash Verified 01/14/18 09:38 codeine Allergy Verified 12/25/17 23:29 Medications: Current Medications Acetaminophen (Tylenol) 650 mg PO Q4H PRN PRN Reason: Headache/Fever/Mild Pain (1-3) Last Admin: 01/15/18 19:38 Dose: 650 mg Albuterol/Ipratropium (Duoneb) 3 ml NEB QID-RT ALAN Last Admin: 01/16/18 10:26 Dose: 3 ml Bisacodyl (Dulcolax) 10 mg PO DAILYPRN PRN PRN Reason: Constipation Dextrose/Water (Dextrose 50%) 25 gm IVP PRN PRN PRN Reason: HYPOGLYCEMIA PROTOCOL Diphenhydramine HCl (Benadryl) 25 mg IVP Q6H PRN PRN Reason: Itching & Insomnia Last Admin: 01/13/18 16:16 Dose: 25 mg Glucagon (Glucagon) 1 mg IM PRN PRN PRN Reason: HYPOGLYCEMIA PROTOCOL Glycopyrrolate (Robinul) 1 mg PER TUBE TID ALAN Last Admin: 01/16/18 10:00 Dose: 1 mg Hydrocortisone/Aloe (Hydrocortisone 1% Cream) 1 gm TOP DAILY ALAN Last Admin: 01/16/18 11:43 Dose: 1 applic Hydroxyzine HCl (Atarax) 50 mg PER TUBE QIDPRN PRN PRN Reason: Itching Last Admin: 01/04/18 01:18 Dose: 50 mg Dextrose/Water (D5w) 1,000 mls @ 0 mls/hr IV INF PRN PRN Reason: HYPOGLYCEMIA PROTOCOL Potassium Chloride 40 meq/ (Sodium Chloride) 270 mls @ 135 mls/hr IVPB ASDIR PRN PRN Reason: FOR SERUM K+ 2.5 - 3.5 Potassium Chloride 40 meq/ (Device) 100 mls @ 50 mls/hr IVPB ASDIR PRN PRN Reason: FOR SERUM K+ 2.5 - 3.5 Last Admin: 01/02/18 10:31 Dose: 100 mls Magnesium Sulfate 1 gm/ Sodium (Chloride) 102 mls @ 102 mls/hr IV PRN PRN PRN Reason: MAG LEVEL 1.4 - 2.0 Last Admin: 01/01/18 10:26 Dose: 102 mls Magnesium Sulfate 2 gm/ Device 100 mls @ 100 mls/hr IVPB ASDIR PRN PRN Reason: MAGNESIUM < 1.4 Potassium Phosphate 9 mmol/ (Sodium Chloride) 103 mls @ 25.75 mls/hr IVPB ASDIR PRN PRN Reason: Phosphate 1.0-1.8 Potassium Phosphate 12 mmol/ (Sodium Chloride) 254 mls @ 63.5 mls/hr IV ASDIR PRN PRN Reason: Serum phosphate 0.5-0.9 Potassium Phosphate 15 mmol/ (Sodium Chloride) 255 mls @ 63.75 mls/hr IV ASDIR PRN PRN Reason: Serum Phos < 0.5 Levetiracetam 1,000 mg/ Device 100 mls @ 200 mls/hr IVPB BID [facility] Last Admin: 01/16/18 10:00 Dose: 100 mls Micafungin Sodium 100 mg/ (Sodium Chloride) 100 mls @ 100 mls/hr IVPB Q24HR@ 1130 [facility] Stop: 01/25/18 12:29 Last Admin: 01/16/18 10:00 Dose: 100 mls Sodium Chloride (Normal Saline 0.9%) 1,000 mls @ 0 mls/hr IV .Q0M [facility] Cefepime HCl 2 gm/ Sodium (Chloride) 100 mls @ 200 mls/hr IVPB Q12HR [facility] Last Admin: 01/16/18 11:41 Dose: 100 mls Linezolid 600 mg/ Device 300 mls @ 150 mls/hr IVPB Q12HR [facility] Last Admin: 01/16/18 10:00 Dose: 300 mls Labetalol HCl (Normodyne) 10 mg SLOW IVP Q2H PRN PRN Reason: SBP >160 Last Admin: 01/02/18 14:15 Dose: 10 mg Lisinopril (Zestril) 5 mg PO DAILY [facility] Last Admin: 01/16/18 10:00 Dose: 5 mg Magnesium Oxide (Magnesium Oxide) 400 mg PO BIDPRN PRN PRN Reason: FOR SERUM MAG 1.4 - 2.0 Magnesium Oxide (Magnesium Oxide) 800 mg PO PRN PRN PRN Reason: FOR SERUM MAG < 1.4 Miscellaneous Medication (Phos-Nak) 1 pkt PO TIDPRN PRN PRN Reason: FOR PHOS LEVEL 1.0 - 1.8 Miscellaneous Medication (Phos-Nak) 2 pkt PO TIDPRN PRN PRN Reason: FOR PHOS LEVEL 0.5 - 1.0 Ccu Electrolyte (Replacement Protocol) 0 each FS PRN PRN PRN Reason: FOR ELECTROLYTE REPLACEMENT Ondansetron HCl (Zofran) 4 mg IVP Q8H PRN PRN Reason: Nausea/Vomiting Pantoprazole Sodium (Protonix) 40 mg IVP DAILY [facility] Last Admin: 01/16/18 10:00 Dose: 40 mg Potassium Chloride (K-Dur) 40 meq PO ASDIR PRN PRN Reason: FOR SERUM K+ 2.5 - 3.5 Potassium Chloride (Klor-Con) 40 meq PER TUBE ASDIR PRN PRN Reason: FOR SERUM K+ 2.5-3.5 Scopolamine (Transderm Scop) 1.5 mg TOP Q3D [facility] Last Admin: 01/16/18 11:38 Dose: 1.5 mg Sodium Chloride (Flush - Normal Saline) 10 ml IVF PRN PRN PRN Reason: Saline Flush Last Admin: 01/12/18 10:26 Dose: 10 ml Sodium Chloride (Flush - Normal Saline) 10 ml IVF Q12HR [facility] Last Admin: 01/16/18 11:42 Dose: 10 ml Sodium Chloride (Flush - Normal Saline) 10 ml IVF PRN PRN PRN Reason: Saline Flush Sodium Chloride (Flush - Normal Saline) 10 ml IV DAILY [facility] Last Admin: 01/16/18 11:42 Dose: 10 ml
[2018-01-17] MEDS: Labetalol HCl 100 MG/20 ML VIAL SLOW IVP PRN ×2 (04:08→12:23)
[2018-01-17 04:40] LABS: #Eosinphils 0.2 thou/uL (0.0-0.7); #Lymphocytes 1.9 thou/uL (1.20-3.40); #Monocytes 0.7 thou/uL (0.11-0.59); #Neutrophils 5.8 thou/uL (1.40-6.50); %Basophils 0.5 % (0.0-1.0); %Eosinophils 1.8 % (0.0-10.0); %Monocytes 8.1 % (0.0-10.0); %Neutrophils 67.6 % (42.0-75.0); Hemoglobin 8.4 g/dL (12.0-16.0); Mean Corpuscular Hemoglobin 30.2 pg (27.0-31.0); Mean Corpuscular Volume 94.2 fL (78.0-98.0); Mean Platelet Volume 7.9 fL (7.4-10.4); Platelet Count 404 thou/uL (130-400); RBC Distribution Width 16.3 % (11.5-14.5); White Blood Cell (WBC) Count 8.5 thou/uL (4.8-10.8)
[2018-01-17 04:54] LABS: Anion Gap 13 mmol/L (10-20); BUN (Urea Nitrogen) 11 mg/dL (7.0-18.7); Calc. Creatinine Clearance 184 mL/min (70-130); Carbon Dioxide 24 mmol/L (22-29); Chloride 104 mmol/L (98-107); Estimated GFR-MDRD Greater than 90; Glucose 108 mg/dL (70-105); Magnesium 2.1 mg/dL (1.6-2.6); Potassium 3.7 mmol/L (3.5-5.1); Sodium 137 mmol/L (136-145)
[2018-01-17] MEDS: levETIRAcetam In NaCl (Iso-Os) 1,000 MG in Premix Bag 1 BAG IVPB SCH ×2 (08:37→20:22)
[2018-01-17] MEDS: Glycopyrrolate 1 MG TAB PER TUBE SCH ×3 (08:37→20:23)
[2018-01-17] MEDS: Cefepime 2 GM in Sodium Chloride 0.9% 100 ML IVPB SCH ×2 (08:37→20:22)
[2018-01-17] MEDS: Pantoprazole 40 MG VIAL IVP SCH (08:37)
[2018-01-17] MEDS: Hydrocortisone 1% Cream 30 GM TUBE TOP SCH (08:39)
[2018-01-17] MEDS: Lisinopril 5 MG TAB PO SCH (08:40)
[2018-01-17] MEDS: Linezolid 600 MG in Premix Bag 1 BAG IVPB SCH ×2 (09:38→20:23)
--- NOTE | 2018-01-17 10:11 | PRG ---
DATE OF SERVICE: 01/17/2018 SUBJECTIVE: The patient is actually making some facial expressions. The nurse tells me at times, she has been opening her eyes and she has also protruded her tongue. OBJECTIVE: VITAL SIGNS: Temperature is a 100.2 with T-max of 101.0, pulse 69, blood pressure 154/92. A 24-hour intake 2128, output 1855. HEENT: Unchanged. NECK: Trach in good position. LUNGS: Fairly clear. CARDIAC: S1 and S2. Regular. ABDOMEN: Soft. EXTREMITIES: No edema. LABORATORY DATA: White blood cell count 8.5, hematocrit 26.3, and platelet count 404. Sodium 137, potassium 3.7, chloride 104, CO2 of 24, BUN 11, creatinine 0.5, and glucose 108. ASSESSMENT: 1. Status post aneurysmal bleed. 2. Hydrocephalus, which appears to be improving even with her EVD clamped. 3. Status post tracheostomy. PLAN: Continue supportive care. Hopefully, able to transfer back to the LTAC soon. She is continuing cefepime, linezolid and micafungin. The micafungin will be discontinued for total two weeks. The cefepime and linezolid will go on as long as Dr. Villegas feels appropriate. Job ID: [id number]
--- NOTE | 2018-01-17 11:16 | PDOC.PN ---
- Subjective Encounter Start Date: 01/17/18 Encounter Start Time: 09:45 Subjective: does not respond to verbal stimuli -: seen moving her right extre freely - Objective Resuscitation Status - Order Detail: 01/01/18 12:06 Resuscitation Status Routine Resuscitation Status: FULL: Full Resuscitation Discussed with: per previous order MAR Reviewed: Yes Vital Signs & Weight: Vital Signs (12 hours) Temp Pulse Pulse Pulse Resp BP BP 01/17/18 08:39 118 H 103 H 148/104 H 01/17/18 08:00 100.1 F H 01/17/18 07:28 01/17/18 07:26 75 22 H 01/17/18 04:08 70 162/100 H 01/17/18 04:00 100.2 F H 01/17/18 00:00 99.7 F H BP Pulse Ox Pulse Ox Pulse Ox 01/17/18 08:39 139/85 97 98 01/17/18 08:00 100 01/17/18 07:28 99 01/17/18 07:26 99 01/17/18 04:08 01/17/18 04:00 01/17/18 00:00 Weight Admit Weight 214 lb 8.015 oz Weight 199 lb 8.293 oz Most Recent Monitor Data Heart Rate from ECG 99 NIBP 142/99 NIBP BP-Mean 113 Respiration from ECG 26 SpO2 100 I&O: 01/16/18 01/17/18 01/18/18 06:59 06:59 06:59 Intake Total 2973 2128 360 Output Total 2730 1855 270 Balance 243 273 90 Result Diagrams: 01/17/18 03:29 01/17/18 03:29 Phys Exam - Physical Examination HEENT: sclera anicteric right pupil is dilated, left normal Neck: no JVD trach collar Respiratory: no wheezing, no rales Cardiovascular: RRR, no significant murmur Gastrointestinal: soft, non-tender, positive bowel sounds peg+ Musculoskeletal: no edema, pulses present left hemiplegia, cognitive issues, non verbal, dysphagia Dx/Plan (1) Hydrocephalus Code(s): G91.9 - HYDROCEPHALUS, UNSPECIFIED Status: Acute Comment: 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 Had right craniectomy with evacuation of hemorrage and coiling of aneurysm. Had subsequent edema at craniotomy site. Scan revealed hydrocephalus. External drain placed and is currently clamped (2) Encephalopathy Code(s): G93.40 - ENCEPHALOPATHY, UNSPECIFIED Status: Acute Comment: chronic with worsoning? (3) Chronic anemia Code(s): D64.9 - ANEMIA, UNSPECIFIED Status: Chronic (4) Seizure disorder Code(s): G40.909 - EPILEPSY, UNSP, NOT INTRACTABLE, WITHOUT STATUS EPILEPTICUS Status: Chronic (5) trach and peg Status: Chronic (6) UTI (urinary tract infection) Status: Acute Qualifiers: Urinary tract infection type: site unspecified Hematuria presence: without hematuria Qualified Code(s): N39.0 - Urinary tract infection, site not specified Comment: Still growing Pseudomonas. Also some yeast. Febrile again. ID following. On Linezolid, cefepime and micafungin. Ortega exchanged. - Plan on cefepime, zyvox and micafungin -: keppra, lisinopril -: evd is clamped -: dc plan per nsx adv -: longterm prognosis is guarded * . Review of Systems - Medications/Allergies Allergies/Adverse Reactions: Allergies Allergy/AdvReac Type Severity Reaction Status Date / Time piperacillin [From Zosyn] Allergy Severe Rash Verified 01/14/18 09:38 tazobactam [From Zosyn] Allergy Severe Rash Verified 01/14/18 09:38 codeine Allergy Verified 12/25/17 23:29 Medications: Current Medications Acetaminophen (Tylenol) 650 mg PO Q4H PRN PRN Reason: Headache/Fever/Mild Pain (1-3) Last Admin: 01/15/18 19:38 Dose: 650 mg Albuterol/Ipratropium (Duoneb) 3 ml NEB QID-RT [facility] Last Admin: 01/17/18 07:26 Dose: 3 ml Bisacodyl (Dulcolax) 10 mg PO DAILYPRN PRN PRN Reason: Constipation Dextrose/Water (Dextrose 50%) 25 gm IVP PRN PRN PRN Reason: HYPOGLYCEMIA PROTOCOL Diphenhydramine HCl (Benadryl) 25 mg IVP Q6H PRN PRN Reason: Itching & Insomnia Last Admin: 01/13/18 16:16 Dose: 25 mg Glucagon (Glucagon) 1 mg IM PRN PRN PRN Reason: HYPOGLYCEMIA PROTOCOL Glycopyrrolate (Robinul) 1 mg PER TUBE TID [facility] Last Admin: 01/17/18 08:37 Dose: 1 mg Hydrocortisone/Aloe (Hydrocortisone 1% Cream) 1 gm TOP DAILY [facility] Last Admin: 01/17/18 08:39 Dose: 1 applic Hydroxyzine HCl (Atarax) 50 mg PER TUBE QIDPRN PRN PRN Reason: Itching Last Admin: 01/04/18 01:18 Dose: 50 mg Dextrose/Water (D5w) 1,000 mls @ 0 mls/hr IV INF PRN PRN Reason: HYPOGLYCEMIA PROTOCOL Potassium Chloride 40 meq/ (Sodium Chloride) 270 mls @ 135 mls/hr IVPB ASDIR PRN PRN Reason: FOR SERUM K+ 2.5 - 3.5 Potassium Chloride 40 meq/ (Device) 100 mls @ 50 mls/hr IVPB ASDIR PRN PRN Reason: FOR SERUM K+ 2.5 - 3.5 Last Admin: 01/02/18 10:31 Dose: 100 mls Magnesium Sulfate 1 gm/ Sodium (Chloride) 102 mls @ 102 mls/hr IV PRN PRN PRN Reason: MAG LEVEL 1.4 - 2.0 Last Admin: 01/01/18 10:26 Dose: 102 mls Magnesium Sulfate 2 gm/ Device 100 mls @ 100 mls/hr IVPB ASDIR PRN PRN Reason: MAGNESIUM < 1.4 Potassium Phosphate 9 mmol/ (Sodium Chloride) 103 mls @ 25.75 mls/hr IVPB ASDIR PRN PRN Reason: Phosphate 1.0-1.8 Potassium Phosphate 12 mmol/ (Sodium Chloride) 254 mls @ 63.5 mls/hr IV ASDIR PRN PRN Reason: Serum phosphate 0.5-0.9 Potassium Phosphate 15 mmol/ (Sodium Chloride) 255 mls @ 63.75 mls/hr IV ASDIR PRN PRN Reason: Serum Phos < 0.5 Levetiracetam 1,000 mg/ Device 100 mls @ 200 mls/hr IVPB BID [facility] Last Admin: 01/17/18 08:37 Dose: 100 mls Micafungin Sodium 100 mg/ (Sodium Chloride) 100 mls @ 100 mls/hr IVPB Q24HR@ 1130 [facility] Stop: 01/25/18 12:29 Last Admin: 01/16/18 10:00 Dose: 100 mls Sodium Chloride (Normal Saline 0.9%) 1,000 mls @ 0 mls/hr IV .Q0M [facility] Cefepime HCl 2 gm/ Sodium (Chloride) 100 mls @ 200 mls/hr IVPB Q12HR [facility] Last Admin: 01/17/18 08:37 Dose: 100 mls Linezolid 600 mg/ Device 300 mls @ 150 mls/hr IVPB Q12HR [facility] Last Admin: 01/17/18 09:38 Dose: 300 mls Labetalol HCl (Normodyne) 10 mg SLOW IVP Q2H PRN PRN Reason: SBP >160 Last Admin: 01/17/18 04:08 Dose: 10 mg Lisinopril (Zestril) 5 mg PO DAILY [facility] Last Admin: 01/17/18 08:40 Dose: 5 mg Magnesium Oxide (Magnesium Oxide) 400 mg PO BIDPRN PRN PRN Reason: FOR SERUM MAG 1.4 - 2.0 Magnesium Oxide (Magnesium Oxide) 800 mg PO PRN PRN PRN Reason: FOR SERUM MAG < 1.4 Miscellaneous Medication (Phos-Nak) 1 pkt PO TIDPRN PRN PRN Reason: FOR PHOS LEVEL 1.0 - 1.8 Miscellaneous Medication (Phos-Nak) 2 pkt PO TIDPRN PRN PRN Reason: FOR PHOS LEVEL 0.5 - 1.0 Ccu Electrolyte (Replacement Protocol) 0 each FS PRN PRN PRN Reason: FOR ELECTROLYTE REPLACEMENT Ondansetron HCl (Zofran) 4 mg IVP Q8H PRN PRN Reason: Nausea/Vomiting Pantoprazole Sodium (Protonix) 40 mg IVP DAILY [facility] Last Admin: 01/17/18 08:37 Dose: 40 mg Potassium Chloride (K-Dur) 40 meq PO ASDIR PRN PRN Reason: FOR SERUM K+ 2.5 - 3.5 Potassium Chloride (Klor-Con) 40 meq PER TUBE ASDIR PRN PRN Reason: FOR SERUM K+ 2.5-3.5 Scopolamine (Transderm Scop) 1.5 mg TOP Q3D [facility] Last Admin: 01/16/18 11:38 Dose: 1.5 mg Sodium Chloride (Flush - Normal Saline) 10 ml IVF PRN PRN PRN Reason: Saline Flush Last Admin: 01/12/18 10:26 Dose: 10 ml Sodium Chloride (Flush - Normal Saline) 10 ml IVF Q12HR [facility] Last Admin: 01/17/18 08:39 Dose: 10 ml Sodium Chloride (Flush - Normal Saline) 10 ml IVF PRN PRN PRN Reason: Saline Flush Sodium Chloride (Flush - Normal Saline) 10 ml IV DAILY [facility] Last Admin: 01/17/18 08:39 Dose: 10 ml
[2018-01-17] MEDS: Micafungin 100 MG in Sodium Chloride 0.9% 100 ML IVPB SCH (11:56)
[2018-01-17 12:58] VITALS: BMI 34.2
[2018-01-17] MEDS ORDERED: Furosemide 40 MG/4 ML VIAL SLOW IVP SCH (13:30)
[2018-01-17] MEDS ORDERED: Morphine 2 MG/ML SYRINGE SLOW IVP SCH (13:30)
[2018-01-17] MEDS: Acetaminophen 650 MG/20.3 ML UDCUP PER TUBE SCH ×2 (15:32→20:22)
--- NOTE | 2018-01-17 18:27 | PRG ---
DATE OF SERVICE: 01/17/2018 SUBJECTIVE: Ms. Norwood is in the ICU, still the CSF percutaneous drainage has been clamped now for 24 hours and hopefully tomorrow will be removed. Still does not interact with the examiner. She is not diaphoretic though. Lungs, symmetric air entry. The skin rash is improving, and she has a Ortega catheter in place with I 's and O's in the mid 200 range. OBJECTIVE: HEENT: Ocular movements are disconjugate. Pupils are unequal. LUNGS: Symmetric air entry. HEART: S1 and S2, regular rate. ABDOMEN: Soft. LABORATORY DATA: White cell count is 8.5, hemoglobin 8.4, platelets 404, with 67% neutrophils. Sodium 137, creatinine 0.56. Cultures from the CSF were negative. We have P. aeruginosa and Roseann tropicalis from urine in Ortega catheter. MEDICATIONS: Current medications include cefepime. She was given micafungin as well. She is also on linezolid. 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 Now, she has been switched to cefepime, and the rash has improved again. The vancomycin was discontinued just in case since there were questions regarding it as well. We are waiting for the catheter to be removed and then will continue antimicrobials for another seven days approximately after catheter is removed. Job ID: [id number] MTDD
[2018-01-17] MEDS: hydrOXYzine 25 MG TAB PER TUBE PRN (21:07)
[2018-01-18] MEDS: Labetalol HCl 100 MG/20 ML VIAL SLOW IVP PRN (05:07)
[2018-01-18] MEDS: diphenhydrAMINE 50 MG/ML VIAL IVP PRN (05:08)
[2018-01-18 05:14] LABS: #Eosinphils 0.5 thou/uL (0.0-0.7); #Lymphocytes 1.3 thou/uL (1.20-3.40); #Monocytes 0.5 thou/uL (0.11-0.59); #Neutrophils 5.6 thou/uL (1.40-6.50); %Basophils 0.4 % (0.0-1.0); %Eosinophils 6.8 % (0.0-10.0); %Lymphocytes 16.7 % (21.0-51.0); %Monocytes 6.3 % (0.0-10.0); %Neutrophils 69.9 % (42.0-75.0); Hemoglobin 8.4 g/dL (12.0-16.0); Mean Corpuscular HGB CONC 31.9 g/dL (32.0-36.0); Mean Corpuscular Hemoglobin 30.2 pg (27.0-31.0); Mean Corpuscular Volume 94.5 fL (78.0-98.0); Mean Platelet Volume 7.7 fL (7.4-10.4); Platelet Count 425 thou/uL (130-400); RBC Distribution Width 16.5 % (11.5-14.5); Red Blood Cell (RBC) Count 2.77 mill/uL (4.20-5.40)
[2018-01-18 05:24] LABS: Anion Gap 12 mmol/L (10-20); BUN (Urea Nitrogen) 13 mg/dL (7.0-18.7); Calc. Creatinine Clearance 168 mL/min (70-130); Calcium 9.2 mg/dL (7.8-10.44); Carbon Dioxide 28 mmol/L (22-29); Chloride 106 mmol/L (98-107); Estimated GFR-MDRD Greater than 90; Glucose 110 mg/dL (70-105); Sodium 142 mmol/L (136-145)
[2018-01-18] MEDS: Pantoprazole 40 MG VIAL IVP SCH (07:27)
[2018-01-18] MEDS: Acetaminophen 650 MG/20.3 ML UDCUP PER TUBE SCH ×3 (07:27→20:05)
[2018-01-18] MEDS: Cefepime 2 GM in Sodium Chloride 0.9% 100 ML IVPB SCH ×2 (07:27→20:16)
[2018-01-18] MEDS: Hydrocortisone 1% Cream 30 GM TUBE TOP SCH (07:30)
[2018-01-18] MEDS: Glycopyrrolate 1 MG TAB PER TUBE SCH ×3 (07:30→20:06)
[2018-01-18] MEDS: Lisinopril 5 MG TAB PO SCH (07:31)
[2018-01-18] MEDS: levETIRAcetam In NaCl (Iso-Os) 1,000 MG in Premix Bag 1 BAG IVPB SCH (07:33)
[2018-01-18] MEDS: Linezolid 600 MG in Premix Bag 1 BAG IVPB SCH (07:39)
--- NOTE | 2018-01-18 08:50 | PRG ---
DATE OF SERVICE: 01/18/2018 SUBJECTIVE: The patient remains in the CCU. She has an EVD in place. She does not appear to be changed in the last 24 hours. OBJECTIVE: VITAL SIGNS: Temperature is 99.2 with a T-max of 100.9, pulse 91, and blood pressure 173/100. 24-hour intake 4411, output 3355. HEENT: Unremarkable except for the swelling in the right religious area. NECK: Trach in good position. LUNGS: Clear. CARDIAC: S1 and S2, regular. ABDOMEN: Soft. EXTREMITIES: No edema. LABORATORY DATA: White blood cell count 8, hematocrit 26.2, and platelet count 425. Sodium 142, potassium 4, chloride 106, CO2 of 28, BUN 13, creatinine 0.6, and glucose 110. ASSESSMENT: The patient's clinical status is unchanged. She has a brain aneurysm status post bleed and then subsequent rebleed in that area. She has extensive hydrocephalus that is better after drainage. Her pulmonary status has remained stable on the tracheostomy. PLAN: We are really stuck in a holding pattern until disposition is made regarding treatment of her hydrocephalus. She is currently on cefepime, linezolid, and micafungin. She is tolerating tube feeds and seems stable. Job ID: [id number]
--- NOTE | 2018-01-18 10:32 | PRG ---
DATE OF SERVICE: 01/18/2018 SUBJECTIVE: Ms. Norwood is a 47-year-old female, known to me for hemicraniectomy, endovascular treatment of aneurysm and more recently management of hydrocephalus. Her drain has been clamped now for approximately 48 hours. Neurologically, she has remained stable. PLAN: To withdrawal the drain today. We will continue to work toward placement in LTAC facility. I do not believe she is a candidate at this time for placement of a ventriculoperitoneal shunt, notably she is a candidate for placement of a bone flap. We will work toward arranging that in a few weeks' time. Job ID: [id number]
[2018-01-18] MEDS: Micafungin 100 MG in Sodium Chloride 0.9% 100 ML IVPB SCH (11:18)
--- NOTE | 2018-01-18 11:54 | PQF ---
CLINICAL DOCUMENTATION IMPROVEMENT CLARIFICATION FORM: ICD-10 Updated PLEASE DO AN ADDENDUM TO THE PROGRESS NOTE WITH ANY DOCUMENTATION UPDATES OR ADDITIONS AND CARRY THROUGH TO DC SUMMARY. THANK YOU. DATE: 01/18/18 ATTN: DR. PEREIRA Please exercise your independent, professional judgment in responding to the clarification form. Clinical indicators are provided on the bottom of this form for your review Please check appropriate box(s): [ x ] Encephalopathy: Type: [ ] Acute [ ] Subacute [ x ] Chronic Etiology: [ ] Hypertensive [ ] Metabolic [ ] Toxic [ ] Hepatic with Coma [ ] Hepatic w/o Coma [ ] Hypoxic [ ] Septic [ ] Drug induced: [ ] Unspecified [ ] in the setting of underlying dementia [ ] Other (please specify) [ ] Transient Alteration of Awareness [ x ] Other diagnosis prior hemorrhage cva with chronic encephalopathy and cognitive deficits [ ] Unable to determine In addition, please specify: Present on Admission (POA): [ x ] Yes [ ] No [ ] Unable to determine For continuity of documentation, please document condition throughout progress notes and discharge summary. Thank You. CLINICAL INDICATORS - SIGNS / SYMPTOMS / LABS PROGRESS NOTE 01/17: "ENCEPHALOPATHY" RISKS: HYDROCEPHALOUS ICH UTI H/O SEIZURE DISORDER TREATMENT: IV MAXIPIME (01/12-PRESENT) IV KEPPRA (12/31-PRESENT) IV ZYVOX (01/12-PRESENT) IV FLUIDS (ER) BRAIN CT NEURO SURGERY CONSULT PLACEMENT OF EVD [employer] Win[employer] Viewer (This form is maintained as a part of the permanent medical record) 2014 [employer]. All Rights Reserved [email or web address] [email or web address] Office: [phone] [facility]
--- NOTE | 2018-01-18 16:57 | PDOC.PN ---
- Subjective Encounter Start Date: 01/18/18 Encounter Start Time: 09:45 Subjective: on trach collar, does not open eyes or interact to verbal stimuli -: moves right extremities - Objective Resuscitation Status - Order Detail: 01/01/18 12:06 Resuscitation Status Routine Resuscitation Status: FULL: Full Resuscitation Discussed with: per previous order MAR Reviewed: Yes Vital Signs & Weight: Vital Signs (12 hours) Temp Pulse Resp BP Pulse Ox 01/18/18 16:00 98.1 F 01/18/18 14:05 90 23 H 100 01/18/18 12:00 98 F 01/18/18 08:00 100 01/18/18 07:31 84 159/67 H 01/18/18 07:00 97.5 F L 01/18/18 06:16 100 01/18/18 06:14 84 24 H 100 01/18/18 05:07 88 173/100 H Weight Admit Weight 214 lb 8.015 oz Weight 201 lb 8.04 oz Most Recent Monitor Data Heart Rate from ECG 94 NIBP 130/85 NIBP BP-Mean 100 Respiration from ECG 22 SpO2 100 I&O: 01/17/18 01/18/18 01/19/18 06:59 06:59 06:59 Intake Total 2128 4411.3 1798 Output Total 1855 3405 725 Balance 273 1006.3 1073 Result Diagrams: 01/18/18 04:20 01/18/18 04:20 Phys Exam - Physical Examination HEENT: moist MMs right pupil is 5mm, left 3mm and normal Neck: no JVD trach+ Respiratory: no wheezing, no rales Cardiovascular: RRR, no significant murmur Gastrointestinal: soft, no distention, positive bowel sounds peg+ Musculoskeletal: no edema, pulses present left hemiplegia, aphasia, dysphagia Dx/Plan (1) Hydrocephalus Code(s): G91.9 - HYDROCEPHALUS, UNSPECIFIED Status: Acute Comment: 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 Had right craniectomy with evacuation of hemorrage and coiling of aneurysm. Had subsequent edema at craniotomy site. Scan revealed hydrocephalus. (2) Encephalopathy Code(s): G93.40 - ENCEPHALOPATHY, UNSPECIFIED Status: Chronic Comment: chronic with worsoning? (3) Chronic anemia Code(s): D64.9 - ANEMIA, UNSPECIFIED Status: Chronic (4) Seizure disorder Code(s): G40.909 - EPILEPSY, UNSP, NOT INTRACTABLE, WITHOUT STATUS EPILEPTICUS Status: Chronic (5) trach and peg Status: Chronic (6) UTI (urinary tract infection) Status: Acute Qualifiers: Urinary tract infection type: site unspecified Hematuria presence: without hematuria Qualified Code(s): N39.0 - Urinary tract infection, site not specified Comment: growing Pseudomonas on 2 separate cultures. Also some yeast. Febrile again. ID following. On Linezolid, cefepime and micafungin. Ortega exchanged. - Plan is on cefepime, zyvox and micafungin, keppra for seizure prophylaxis -: is stable on trach collar -: likely evd will come out today -: per to continue antibiotics for 7 more days -: dc plan is to [facility] when cleared by nsx, ?am if approved * . Review of Systems - Medications/Allergies Allergies/Adverse Reactions: Allergies Allergy/AdvReac Type Severity Reaction Status Date / Time piperacillin [From Zosyn] Allergy Severe Rash Verified 01/14/18 09:38 tazobactam [From Zosyn] Allergy Severe Rash Verified 01/14/18 09:38 codeine Allergy Verified 12/25/17 23:29 Medications: Current Medications Acetaminophen (Tylenol) 650 mg PO Q4H PRN PRN Reason: Headache/Fever/Mild Pain (1-3) Last Admin: 01/15/18 19:38 Dose: 650 mg Acetaminophen (Tylenol Elixir) 650 mg PER TUBE TID [facility] Last Admin: 01/18/18 15:19 Dose: 650 mg Albuterol/Ipratropium (Duoneb) 3 ml NEB QID-RT [facility] Last Admin: 01/18/18 14:05 Dose: 3 ml Bisacodyl (Dulcolax) 10 mg PO DAILYPRN PRN PRN Reason: Constipation Dextrose/Water (Dextrose 50%) 25 gm IVP PRN PRN PRN Reason: HYPOGLYCEMIA PROTOCOL Diphenhydramine HCl (Benadryl) 25 mg IVP Q6H PRN PRN Reason: Itching & Insomnia Last Admin: 01/18/18 05:08 Dose: 25 mg Glucagon (Glucagon) 1 mg IM PRN PRN PRN Reason: HYPOGLYCEMIA PROTOCOL Glycopyrrolate (Robinul) 1 mg PER TUBE TID [facility] Last Admin: 01/18/18 15:19 Dose: 1 mg Hydrocortisone/Aloe (Hydrocortisone 1% Cream) 1 gm TOP DAILY [facility] Last Admin: 01/18/18 07:30 Dose: 1 applic Hydroxyzine HCl (Atarax) 50 mg PER TUBE QIDPRN PRN PRN Reason: Itching Last Admin: 01/17/18 21:07 Dose: 50 mg Dextrose/Water (D5w) 1,000 mls @ 0 mls/hr IV INF PRN PRN Reason: HYPOGLYCEMIA PROTOCOL Potassium Chloride 40 meq/ (Sodium Chloride) 270 mls @ 135 mls/hr IVPB ASDIR PRN PRN Reason: FOR SERUM K+ 2.5 - 3.5 Potassium Chloride 40 meq/ (Device) 100 mls @ 50 mls/hr IVPB ASDIR PRN PRN Reason: FOR SERUM K+ 2.5 - 3.5 Last Admin: 01/02/18 10:31 Dose: 100 mls Magnesium Sulfate 1 gm/ Sodium (Chloride) 102 mls @ 102 mls/hr IV PRN PRN PRN Reason: MAG LEVEL 1.4 - 2.0 Last Admin: 01/01/18 10:26 Dose: 102 mls Magnesium Sulfate 2 gm/ Device 100 mls @ 100 mls/hr IVPB ASDIR PRN PRN Reason: MAGNESIUM < 1.4 Potassium Phosphate 9 mmol/ (Sodium Chloride) 103 mls @ 25.75 mls/hr IVPB ASDIR PRN PRN Reason: Phosphate 1.0-1.8 Potassium Phosphate 12 mmol/ (Sodium Chloride) 254 mls @ 63.5 mls/hr IV ASDIR PRN PRN Reason: Serum phosphate 0.5-0.9 Potassium Phosphate 15 mmol/ (Sodium Chloride) 255 mls @ 63.75 mls/hr IV ASDIR PRN PRN Reason: Serum Phos < 0.5 Micafungin Sodium 100 mg/ (Sodium Chloride) 100 mls @ 100 mls/hr IVPB Q24HR@ 1130 [facility] Stop: 01/25/18 12:29 Last Admin: 01/18/18 11:18 Dose: 100 mls Sodium Chloride (Normal Saline 0.9%) 1,000 mls @ 0 mls/hr IV .Q0M [facility] Cefepime HCl 2 gm/ Sodium (Chloride) 100 mls @ 200 mls/hr IVPB Q12HR [facility] Last Admin: 01/18/18 07:27 Dose: 100 mls Labetalol HCl (Normodyne) 10 mg SLOW IVP Q2H PRN PRN Reason: SBP >160 Last Admin: 01/18/18 05:07 Dose: 10 mg Levetiracetam (Keppra) 1,000 mg PO BID [facility] Linezolid (Zyvox) 600 mg PO Q12HR [facility] Lisinopril (Zestril) 5 mg PO DAILY [facility] Last Admin: 01/18/18 07:31 Dose: 5 mg Magnesium Oxide (Magnesium Oxide) 400 mg PO BIDPRN PRN PRN Reason: FOR SERUM MAG 1.4 - 2.0 Magnesium Oxide (Magnesium Oxide) 800 mg PO PRN PRN PRN Reason: FOR SERUM MAG < 1.4 Miscellaneous Medication (Phos-Nak) 1 pkt PO TIDPRN PRN PRN Reason: FOR PHOS LEVEL 1.0 - 1.8 Miscellaneous Medication (Phos-Nak) 2 pkt PO TIDPRN PRN PRN Reason: FOR PHOS LEVEL 0.5 - 1.0 Ccu Electrolyte (Replacement Protocol) 0 each FS PRN PRN PRN Reason: FOR ELECTROLYTE REPLACEMENT Ondansetron HCl (Zofran) 4 mg IVP Q8H PRN PRN Reason: Nausea/Vomiting Pantoprazole Sodium (Protonix) 40 mg IVP DAILY [facility] Last Admin: 01/18/18 07:27 Dose: 40 mg Pantoprazole Sodium (Protonix) 40 mg PER TUBE DAILY [facility] Potassium Chloride (K-Dur) 40 meq PO ASDIR PRN PRN Reason: FOR SERUM K+ 2.5 - 3.5 Potassium Chloride (Klor-Con) 40 meq PER TUBE ASDIR PRN PRN Reason: FOR SERUM K+ 2.5-3.5 Scopolamine (Transderm Scop) 1.5 mg TOP Q3D [facility] Last Admin: 01/16/18 11:38 Dose: 1.5 mg Sodium Chloride (Flush - Normal Saline) 10 ml IVF PRN PRN PRN Reason: Saline Flush Last Admin: 01/12/18 10:26 Dose: 10 ml Sodium Chloride (Flush - Normal Saline) 10 ml IVF Q12HR [facility] Last Admin: 01/18/18 07:32 Dose: 10 ml Sodium Chloride (Flush - Normal Saline) 10 ml IVF PRN PRN PRN Reason: Saline Flush Sodium Chloride (Flush - Normal Saline) 10 ml IV DAILY [facility] Last Admin: 01/18/18 07:32 Dose: 10 ml
[2018-01-18] MEDS: Linezolid 600 MG TAB PO SCH (20:05)
[2018-01-18] MEDS: levETIRAcetam 500 MG TAB PO SCH (20:06)
[2018-01-19 05:26] LABS: #Eosinphils 0.4 thou/uL (0.0-0.7); #Lymphocytes 1.3 thou/uL (1.20-3.40); #Monocytes 0.4 thou/uL (0.11-0.59); #Neutrophils 4.8 thou/uL (1.40-6.50); %Basophils 0.4 % (0.0-1.0); %Monocytes 5.7 % (0.0-10.0); %Neutrophils 68.9 % (42.0-75.0); Hemoglobin 9.1 g/dL (12.0-16.0); Mean Corpuscular HGB CONC 31.4 g/dL (32.0-36.0); Mean Corpuscular Hemoglobin 29.8 pg (27.0-31.0); Mean Corpuscular Volume 94.9 fL (78.0-98.0); Mean Platelet Volume 6.9 fL (7.4-10.4); Platelet Count 496 thou/uL (130-400); RBC Distribution Width 16.5 % (11.5-14.5); Red Blood Cell (RBC) Count 3.06 mill/uL (4.20-5.40)
[2018-01-19 05:42] LABS: Anion Gap 14 mmol/L (10-20); BUN (Urea Nitrogen) 13 mg/dL (7.0-18.7); Calc. Creatinine Clearance 180 mL/min (70-130); Calcium 9.3 mg/dL (7.8-10.44); Carbon Dioxide 24 mmol/L (22-29); Chloride 105 mmol/L (98-107); Estimated GFR-MDRD Greater than 90; Glucose 118 mg/dL (70-105); Magnesium 2.3 mg/dL (1.6-2.6); Potassium 4.2 mmol/L (3.5-5.1); Sodium 139 mmol/L (136-145)
[2018-01-19] MEDS: Acetaminophen 650 MG/20.3 ML UDCUP PER TUBE SCH ×3 (09:11→21:21)
[2018-01-19] MEDS: Hydrocortisone 1% Cream 30 GM TUBE TOP SCH (09:12)
[2018-01-19] MEDS: Linezolid 600 MG TAB PO SCH ×2 (09:12→21:22)
[2018-01-19] MEDS: levETIRAcetam 500 MG TAB PO SCH ×2 (09:12→23:28)
[2018-01-19] MEDS: Glycopyrrolate 1 MG TAB PER TUBE SCH ×3 (09:12→21:22)
[2018-01-19] MEDS: Lisinopril 5 MG TAB PO SCH (09:12)
[2018-01-19] MEDS: Pantoprazole 40 MG GRANULES PACKET PER TUBE SCH (09:13)
[2018-01-19] MEDS: Cefepime 2 GM in Sodium Chloride 0.9% 100 ML IVPB SCH ×2 (09:20→21:22)
[2018-01-19] MEDS: Pantoprazole 40 MG VIAL IVP SCH (09:37)
--- NOTE | 2018-01-19 12:07 | CT ---
CT OF THE BRAIN WITHOUT CONTRAST: Date: 01/19/18 COMPARISON: 01/08/18. HISTORY: Intracranial hemorrhage and history of hydrocephalus. Patient has had a craniotomy. TECHNIQUE: Multiple contiguous axial images were obtained in a CT of the brain without contrast. FINDINGS: There is hyperdensity within the right middle cranial fossa consistent with resorbing hemorrhage. A b ullet is seen just beneath the cranioplasty flap. There is edema and extension of the brain through t he craniotomy, but beneath the cranioplasty flap. Small amount of blood is seen in the posterior aspe ct of both lateral ventricles. The previously seen left frontal approach ventriculostomy catheter has been removed. A small amount of blood is also seen along the left frontoparietal convexity which rep resents a resorbing subdural hematoma. This is stable in size compared to the prior examination. Ther e is slight shift in the midline to the right. No downward herniation is seen. No hydrocephalus is pr esent. IMPRESSION: 1. Resorbing intracranial hemorrhage. 2. Decreased edema but persistence prominence of the brain parenchyma through the craniotomy site. 3. Removal of ventriculostomy catheter without evidence of hydrocephalus. POS: [facility]
--- NOTE | 2018-01-19 12:18 | PDOC.PN ---
- Subjective Encounter Start Date: 01/19/18 Encounter Start Time: 07:20 -: non-verbal Subjective: not in distress, is closing her eyes -: does not interact -: is moving right extremities - Objective Resuscitation Status - Order Detail: 01/01/18 12:06 Resuscitation Status Routine Resuscitation Status: FULL: Full Resuscitation Discussed with: per previous order MAR Reviewed: Yes Vital Signs & Weight: Vital Signs (12 hours) Temp Pulse Pulse Pulse Resp BP BP 01/19/18 12:00 100.8 F H 107 H 25 H 01/19/18 10:33 124 H 24 H 01/19/18 08:55 117 H 111 H 151/100 H 147/93 H 01/19/18 07:55 99 18 01/19/18 07:42 01/19/18 07:31 98.5 F 96 24 H 01/19/18 07:27 98.5 F 92 28 H 01/19/18 04:00 98.5 F 95 29 H 01/19/18 02:00 01/19/18 01:49 97.5 F L 93 22 H BP Pulse Ox 01/19/18 12:00 132/72 99 01/19/18 10:33 100 01/19/18 08:55 01/19/18 07:55 100 01/19/18 07:42 100 01/19/18 07:31 148/105 H 100 01/19/18 07:27 149/96 H 100 01/19/18 04:00 153/92 H 100 01/19/18 02:00 100 01/19/18 01:49 144/93 H 100 Weight Admit Weight 214 lb 8.015 oz Weight 212 lb 12.8 oz Most Recent Monitor Data Heart Rate from ECG 88 NIBP 135/82 NIBP BP-Mean 99 Respiration from ECG 25 SpO2 100 I&O: 01/18/18 01/19/18 01/20/18 06:59 06:59 06:59 Intake Total 4411.3 2868 300 Output Total 3405 2009 Balance 1006.3 858 300 Result Diagrams: 01/19/18 05:15 01/19/18 05:15 Phys Exam - Physical Examination HEENT: PERRLA, sclera anicteric Neck: no JVD trach+ Respiratory: no wheezing, no rales Cardiovascular: RRR, no significant murmur Gastrointestinal: soft, non-tender, positive bowel sounds peg+ Musculoskeletal: no edema, pulses present left hemiplegia, aphasia and dysphagia Dx/Plan (1) Hydrocephalus Code(s): G91.9 - HYDROCEPHALUS, UNSPECIFIED Status: Acute Comment: s/p removal of EVD, 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 Had right craniectomy with evacuation of hemorrage and coiling of aneurysm. Had subsequent edema at craniotomy site. Scan revealed hydrocephalus. (2) Encephalopathy Code(s): G93.40 - ENCEPHALOPATHY, UNSPECIFIED Status: Chronic Comment: chronic with worsoning? (3) Chronic anemia Code(s): D64.9 - ANEMIA, UNSPECIFIED Status: Chronic (4) Seizure disorder Code(s): G40.909 - EPILEPSY, UNSP, NOT INTRACTABLE, WITHOUT STATUS EPILEPTICUS Status: Chronic (5) trach and peg Status: Chronic (6) UTI (urinary tract infection) Status: Acute Qualifiers: Urinary tract infection type: site unspecified Hematuria presence: without hematuria Qualified Code(s): N39.0 - Urinary tract infection, site not specified Comment: growing Pseudomonas on 2 separate cultures. Also some yeast. Febrile again. ID following. On Linezolid, cefepime and micafungin. Ortega exchanged. - Plan had temp of 102 this am, repeat cultures if she has grown any new organism -: cxr to r/o aspiration, CT brain shows resolved hydrocephalus -: is on cefepime, zyvox and micafungin -: keppra for seizures, stool studies if she has diarrhea -: poor prognosis, hold dc today to nexus ltac until her temp resolves * . Review of Systems - Medications/Allergies Allergies/Adverse Reactions: Allergies Allergy/AdvReac Type Severity Reaction Status Date / Time piperacillin [From Zosyn] Allergy Severe Rash Verified 01/14/18 09:38 tazobactam [From Zosyn] Allergy Severe Rash Verified 01/14/18 09:38 codeine Allergy Verified 12/25/17 23:29 Medications: Current Medications Acetaminophen (Tylenol) 650 mg PO Q4H PRN PRN Reason: Headache/Fever/Mild Pain (1-3) Last Admin: 01/15/18 19:38 Dose: 650 mg Acetaminophen (Tylenol Elixir) 650 mg PER TUBE TID [facility] Last Admin: 01/19/18 09:11 Dose: 650 mg Albuterol/Ipratropium (Duoneb) 3 ml NEB QID-RT ALAN Last Admin: 01/19/18 10:33 Dose: 3 ml Bisacodyl (Dulcolax) 10 mg PO DAILYPRN PRN PRN Reason: Constipation Dextrose/Water (Dextrose 50%) 25 gm IVP PRN PRN PRN Reason: HYPOGLYCEMIA PROTOCOL Diphenhydramine HCl (Benadryl) 25 mg IVP Q6H PRN PRN Reason: Itching & Insomnia Last Admin: 01/18/18 05:08 Dose: 25 mg Glucagon (Glucagon) 1 mg IM PRN PRN PRN Reason: HYPOGLYCEMIA PROTOCOL Glycopyrrolate (Robinul) 1 mg PER TUBE TID [facility] Last Admin: 01/19/18 09:12 Dose: 1 mg Hydrocortisone/Aloe (Hydrocortisone 1% Cream) 1 gm TOP DAILY [facility] Last Admin: 01/19/18 09:12 Dose: 1 applic Hydroxyzine HCl (Atarax) 50 mg PER TUBE QIDPRN PRN PRN Reason: Itching Last Admin: 01/17/18 21:07 Dose: 50 mg Dextrose/Water (D5w) 1,000 mls @ 0 mls/hr IV INF PRN PRN Reason: HYPOGLYCEMIA PROTOCOL Potassium Chloride 40 meq/ (Sodium Chloride) 270 mls @ 135 mls/hr IVPB ASDIR PRN PRN Reason: FOR SERUM K+ 2.5 - 3.5 Potassium Chloride 40 meq/ (Device) 100 mls @ 50 mls/hr IVPB ASDIR PRN PRN Reason: FOR SERUM K+ 2.5 - 3.5 Last Admin: 01/02/18 10:31 Dose: 100 mls Magnesium Sulfate 1 gm/ Sodium (Chloride) 102 mls @ 102 mls/hr IV PRN PRN PRN Reason: MAG LEVEL 1.4 - 2.0 Last Admin: 01/01/18 10:26 Dose: 102 mls Magnesium Sulfate 2 gm/ Device 100 mls @ 100 mls/hr IVPB ASDIR PRN PRN Reason: MAGNESIUM < 1.4 Potassium Phosphate 9 mmol/ (Sodium Chloride) 103 mls @ 25.75 mls/hr IVPB ASDIR PRN PRN Reason: Phosphate 1.0-1.8 Potassium Phosphate 12 mmol/ (Sodium Chloride) 254 mls @ 63.5 mls/hr IV ASDIR PRN PRN Reason: Serum phosphate 0.5-0.9 Potassium Phosphate 15 mmol/ (Sodium Chloride) 255 mls @ 63.75 mls/hr IV ASDIR PRN PRN Reason: Serum Phos < 0.5 Micafungin Sodium 100 mg/ (Sodium Chloride) 100 mls @ 100 mls/hr IVPB Q24HR@ 1130 [facility] Stop: 01/25/18 12:29 Last Admin: 01/18/18 11:18 Dose: 100 mls Sodium Chloride (Normal Saline 0.9%) 1,000 mls @ 0 mls/hr IV .Q0M [facility] Cefepime HCl 2 gm/ Sodium (Chloride) 100 mls @ 200 mls/hr IVPB Q12HR [facility] Last Admin: 01/19/18 09:20 Dose: 100 mls Labetalol HCl (Normodyne) 10 mg SLOW IVP Q2H PRN PRN Reason: SBP >160 Last Admin: 01/18/18 05:07 Dose: 10 mg Levetiracetam (Keppra) 1,000 mg PO BID [facility] Last Admin: 01/19/18 09:12 Dose: 1,000 mg Linezolid (Zyvox) 600 mg PO Q12HR [facility] Last Admin: 01/19/18 09:12 Dose: 600 mg Lisinopril (Zestril) 5 mg PO DAILY [facility] Last Admin: 01/19/18 09:12 Dose: 5 mg Magnesium Oxide (Magnesium Oxide) 400 mg PO BIDPRN PRN PRN Reason: FOR SERUM MAG 1.4 - 2.0 Magnesium Oxide (Magnesium Oxide) 800 mg PO PRN PRN PRN Reason: FOR SERUM MAG < 1.4 Miscellaneous Medication (Phos-Nak) 1 pkt PO TIDPRN PRN PRN Reason: FOR PHOS LEVEL 1.0 - 1.8 Miscellaneous Medication (Phos-Nak) 2 pkt PO TIDPRN PRN PRN Reason: FOR PHOS LEVEL 0.5 - 1.0 Ccu Electrolyte (Replacement Protocol) 0 each FS PRN PRN PRN Reason: FOR ELECTROLYTE REPLACEMENT Ondansetron HCl (Zofran) 4 mg IVP Q8H PRN PRN Reason: Nausea/Vomiting Pantoprazole Sodium (Protonix) 40 mg IVP DAILY [facility] Last Admin: 01/19/18 09:37 Dose: Not Given Pantoprazole Sodium (Protonix) 40 mg PER TUBE DAILY [facility] Last Admin: 01/19/18 09:13 Dose: 40 mg Potassium Chloride (K-Dur) 40 meq PO ASDIR PRN PRN Reason: FOR SERUM K+ 2.5 - 3.5 Potassium Chloride (Klor-Con) 40 meq PER TUBE ASDIR PRN PRN Reason: FOR SERUM K+ 2.5-3.5 Scopolamine (Transderm Scop) 1.5 mg TOP Q3D [facility] Last Admin: 01/16/18 11:38 Dose: 1.5 mg Sodium Chloride (Flush - Normal Saline) 10 ml IVF PRN PRN PRN Reason: Saline Flush Last Admin: 01/12/18 10:26 Dose: 10 ml Sodium Chloride (Flush - Normal Saline) 10 ml IVF Q12HR [facility] Last Admin: 01/19/18 09:13 Dose: 10 ml Sodium Chloride (Flush - Normal Saline) 10 ml IVF PRN PRN PRN Reason: Saline Flush Sodium Chloride (Flush - Normal Saline) 10 ml IV DAILY [facility] Last Admin: 01/19/18 09:13 Dose: 10 ml
[2018-01-19] MEDS: Scopolamine 1.5 mg/72 hour Patch TOP SCH (12:22)
[2018-01-19] MEDS: Micafungin 100 MG in Sodium Chloride 0.9% 100 ML IVPB SCH (12:23)
--- NOTE | 2018-01-19 12:45 | RAD ---
SINGLE VIEW CHEST: Date: 01/19/18 COMPARISON: 01/12/18. HISTORY: Fever. Aspiration. FINDINGS: Single view of the chest shows a normal sized cardiomediastinal silhouette. The PICC line and tracheo stomy are unchanged in position. There is no evidence of consolidation, mass, or pleural effusion. IMPRESSION: No evidence of acute cardiopulmonary disease. POS: [facility]
--- NOTE | 2018-01-19 20:40 | PRG ---
DATE OF SERVICE: 01/19/2018 SUBJECTIVE: Brigida Norwood is having no problems and I have evaluated her. OBJECTIVE: VITAL SIGNS: Temperature maximum is 100.8, heart rate 87, respiratory rate 16, oximetry is 100% on trach collar. Blood pressure 142/87. LUNGS: Clear. HEART: Regular rhythm. ABDOMEN: Soft. EXTREMITIES: She has no peripheral edema. IMAGING: She had a head CT done today ordered by Dr. Rehman, which shows an improvement of her intracranial hemorrhage, decreased edema, and no hydrocephalus. Chest x-ray today shows clear lung enciso. PLAN: We will continue with supportive care for the after effects of her intracranial hemorrhage. Job ID: [id number]
[2018-01-19] MEDS: levETIRAcetam 500 mg/5 ml Oral Solution PER TUBE SCH (21:22)
[2018-01-20] MEDS ORDERED: Sterile Water 10 ML VIAL IVP SCH (00:38)
[2018-01-20] MEDS ORDERED: Activase 2 MG VIAL CATH SCH (00:38)
[2018-01-20 06:05] LABS: #Eosinphils 0.3 thou/uL (0.0-0.7); #Lymphocytes 1.3 thou/uL (1.20-3.40); #Monocytes 0.4 thou/uL (0.11-0.59); %Basophils 0.1 % (0.0-1.0); %Eosinophils 4.2 % (0.0-10.0); %Lymphocytes 18.5 % (21.0-51.0); %Monocytes 6.1 % (0.0-10.0); %Neutrophils 71.2 % (42.0-75.0); Hemoglobin 8.5 g/dL (12.0-16.0); Mean Corpuscular Hemoglobin 30.2 pg (27.0-31.0); Mean Corpuscular Volume 94.4 fL (78.0-98.0); Mean Platelet Volume 7.1 fL (7.4-10.4); Platelet Count 470 thou/uL (130-400); RBC Distribution Width 16.4 % (11.5-14.5); Red Blood Cell (RBC) Count 2.82 mill/uL (4.20-5.40)
[2018-01-20 06:17] LABS: Anion Gap 13 mmol/L (10-20); BUN (Urea Nitrogen) 13 mg/dL (7.0-18.7); Calc. Creatinine Clearance 183 mL/min (70-130); Calcium 9.4 mg/dL (7.8-10.44); Carbon Dioxide 25 mmol/L (22-29); Chloride 105 mmol/L (98-107); Estimated GFR-MDRD Greater than 90; Glucose 111 mg/dL (70-105); Magnesium 2.3 mg/dL (1.6-2.6); Potassium 4.1 mmol/L (3.5-5.1); Sodium 139 mmol/L (136-145)
[2018-01-20] MEDS: levETIRAcetam 500 mg/5 ml Oral Solution PER TUBE SCH ×2 (09:09→21:30)
[2018-01-20] MEDS: Glycopyrrolate 1 MG TAB PER TUBE SCH ×3 (09:09→21:30)
[2018-01-20] MEDS: Acetaminophen 650 MG/20.3 ML UDCUP PER TUBE SCH ×3 (09:09→21:31)
[2018-01-20] MEDS: Cefepime 2 GM in Sodium Chloride 0.9% 100 ML IVPB SCH ×2 (09:09→21:31)
[2018-01-20] MEDS: Hydrocortisone 1% Cream 30 GM TUBE TOP SCH (09:10)
[2018-01-20] MEDS: Lisinopril 5 MG TAB PO SCH (09:10)
[2018-01-20] MEDS: Pantoprazole 40 MG GRANULES PACKET PER TUBE SCH (09:10)
[2018-01-20] MEDS: Linezolid 600 MG TAB PO SCH ×2 (09:10→21:30)
[2018-01-20] MEDS: Pantoprazole 40 MG VIAL IVP SCH (09:12)
--- NOTE | 2018-01-20 10:53 | ULT ---
BILATERAL LOWER EXTREMITY VENOUS ULTRASOUND: COMPARISON: 01/04/2018. HISTORY: Bilateral lower extremity edema. Evaluate for DVT. TECHNIQUE: Multiplanar, mello scale, and color Doppler images were obtained in a bilateral lower extremity venous ultrasound. Spectral analysis of the Doppler waveforms was performed. FINDINGS: The bilateral common femoral veins, profunda femoral veins, superficial femoral veins, and popliteal veins are normal in appearance without visible thrombus. These vessels demonstrate normal compressio n, flow, and augmentation. Posterior tibial veins and greater saphenous vein are also patent. IMPRESSION: No evidence of deep vein thrombosis. POS: [facility]
[2018-01-20] MEDS: Micafungin 100 MG in Sodium Chloride 0.9% 100 ML IVPB SCH (11:42)
--- NOTE | 2018-01-20 13:32 | PDOC.PN ---
- Subjective Encounter Start Date: 01/20/18 Encounter Start Time: 09:00 -: non-verbal Subjective: is sweating, fever of 100 now -: no sob, is freely moving right extremities -: opens left eye better - Objective Resuscitation Status - Order Detail: 01/01/18 12:06 Resuscitation Status Routine Resuscitation Status: FULL: Full Resuscitation Discussed with: per previous order MAR Reviewed: Yes Vital Signs & Weight: Vital Signs (12 hours) Temp Pulse Resp BP BP Pulse Ox 01/20/18 11:45 99.8 F H 107 H 23 H 129/80 100 01/20/18 10:53 128 H 20 100 01/20/18 09:10 99 146/88 H 01/20/18 08:00 100 01/20/18 07:36 89 18 100 01/20/18 07:22 99.5 F 110 H 35 H 136/85 100 01/20/18 04:00 99.0 F 95 24 H 153/96 H 100 Weight Admit Weight 214 lb 8.015 oz Weight 216 lb 8 oz Most Recent Monitor Data Heart Rate from ECG 88 NIBP 135/82 NIBP BP-Mean 99 Respiration from ECG 25 SpO2 100 I&O: 01/19/18 01/20/18 01/21/18 06:59 06:59 06:59 Intake Total 2868 3050 300 Output Total 2009 1774 Balance 858 1275 300 Result Diagrams: 01/20/18 05:52 01/20/18 05:52 Phys Exam - Physical Examination HEENT: PERRLA, moist MMs Neck: no JVD trach+ Respiratory: no wheezing, no rales Cardiovascular: RRR, no significant murmur Gastrointestinal: soft, non-tender, positive bowel sounds peg+ Musculoskeletal: no edema, pulses present left hemiplegia, aphasia, dysphagia Dx/Plan (1) Hydrocephalus Code(s): G91.9 - HYDROCEPHALUS, UNSPECIFIED Status: Acute Comment: s/p removal of EVD, 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 Had right craniectomy with evacuation of hemorrage and coiling of aneurysm. Had subsequent edema at craniotomy site. Scan revealed hydrocephalus. (2) Encephalopathy Code(s): G93.40 - ENCEPHALOPATHY, UNSPECIFIED Status: Chronic Comment: chronic with worsoning? (3) Chronic anemia Code(s): D64.9 - ANEMIA, UNSPECIFIED Status: Chronic (4) Seizure disorder Code(s): G40.909 - EPILEPSY, UNSP, NOT INTRACTABLE, WITHOUT STATUS EPILEPTICUS Status: Chronic (5) trach and peg Status: Chronic (6) UTI (urinary tract infection) Status: Acute Qualifiers: Urinary tract infection type: site unspecified Hematuria presence: without hematuria Qualified Code(s): N39.0 - Urinary tract infection, site not specified Comment: growing Pseudomonas on 2 separate cultures. Also some yeast. Febrile again. ID following. On Linezolid, cefepime and micafungin. Ortega exchanged. - Plan is on cefepime, zyvox and micafungin -: usg venous doppler is -ve for dvt -: may dc to nexus ltac if ok with with off and on fever? -: continue keppra, tube feeding and trach collar -: residential prognosis is poor * . Review of Systems - Medications/Allergies Allergies/Adverse Reactions: Allergies Allergy/AdvReac Type Severity Reaction Status Date / Time piperacillin [From Zosyn] Allergy Severe Rash Verified 01/14/18 09:38 tazobactam [From Zosyn] Allergy Severe Rash Verified 01/14/18 09:38 codeine Allergy Verified 12/25/17 23:29 Medications: Current Medications Acetaminophen (Tylenol) 650 mg PO Q4H PRN PRN Reason: Headache/Fever/Mild Pain (1-3) Last Admin: 01/15/18 19:38 Dose: 650 mg Acetaminophen (Tylenol Elixir) 650 mg PER TUBE TID [facility] Last Admin: 01/20/18 09:09 Dose: 650 mg Albuterol/Ipratropium (Duoneb) 3 ml NEB QID-RT [facility] Last Admin: 01/20/18 10:53 Dose: 3 ml Bisacodyl (Dulcolax) 10 mg PO DAILYPRN PRN PRN Reason: Constipation Dextrose/Water (Dextrose 50%) 25 gm IVP PRN PRN PRN Reason: HYPOGLYCEMIA PROTOCOL Diphenhydramine HCl (Benadryl) 25 mg IVP Q6H PRN PRN Reason: Itching & Insomnia Last Admin: 01/18/18 05:08 Dose: 25 mg Glucagon (Glucagon) 1 mg IM PRN PRN PRN Reason: HYPOGLYCEMIA PROTOCOL Glycopyrrolate (Robinul) 1 mg PER TUBE TID [facility] Last Admin: 01/20/18 09:09 Dose: 1 mg Hydrocortisone/Aloe (Hydrocortisone 1% Cream) 1 gm TOP DAILY [facility] Last Admin: 01/20/18 09:10 Dose: 1 applic Hydroxyzine HCl (Atarax) 50 mg PER TUBE QIDPRN PRN PRN Reason: Itching Last Admin: 01/17/18 21:07 Dose: 50 mg Dextrose/Water (D5w) 1,000 mls @ 0 mls/hr IV INF PRN PRN Reason: HYPOGLYCEMIA PROTOCOL Potassium Chloride 40 meq/ (Sodium Chloride) 270 mls @ 135 mls/hr IVPB ASDIR PRN PRN Reason: FOR SERUM K+ 2.5 - 3.5 Potassium Chloride 40 meq/ (Device) 100 mls @ 50 mls/hr IVPB ASDIR PRN PRN Reason: FOR SERUM K+ 2.5 - 3.5 Last Admin: 01/02/18 10:31 Dose: 100 mls Magnesium Sulfate 1 gm/ Sodium (Chloride) 102 mls @ 102 mls/hr IV PRN PRN PRN Reason: MAG LEVEL 1.4 - 2.0 Last Admin: 01/01/18 10:26 Dose: 102 mls Magnesium Sulfate 2 gm/ Device 100 mls @ 100 mls/hr IVPB ASDIR PRN PRN Reason: MAGNESIUM < 1.4 Potassium Phosphate 9 mmol/ (Sodium Chloride) 103 mls @ 25.75 mls/hr IVPB ASDIR PRN PRN Reason: Phosphate 1.0-1.8 Potassium Phosphate 12 mmol/ (Sodium Chloride) 254 mls @ 63.5 mls/hr IV ASDIR PRN PRN Reason: Serum phosphate 0.5-0.9 Potassium Phosphate 15 mmol/ (Sodium Chloride) 255 mls @ 63.75 mls/hr IV ASDIR PRN PRN Reason: Serum Phos < 0.5 Micafungin Sodium 100 mg/ (Sodium Chloride) 100 mls @ 100 mls/hr IVPB Q24HR@ 1130 [facility] Stop: 01/25/18 12:29 Last Admin: 01/20/18 11:42 Dose: 100 mls Sodium Chloride (Normal Saline 0.9%) 1,000 mls @ 0 mls/hr IV .Q0M [facility] Cefepime HCl 2 gm/ Sodium (Chloride) 100 mls @ 200 mls/hr IVPB Q12HR [facility] Last Admin: 01/20/18 09:09 Dose: 100 mls Labetalol HCl (Normodyne) 10 mg SLOW IVP Q2H PRN PRN Reason: SBP >160 Last Admin: 01/18/18 05:07 Dose: 10 mg Levetiracetam (Keppra Oral Solution) 1,000 mg PER TUBE BID [facility] Last Admin: 01/20/18 09:09 Dose: 1,000 mg Linezolid (Zyvox) 600 mg PO Q12HR [facility] Last Admin: 01/20/18 09:10 Dose: 600 mg Lisinopril (Zestril) 5 mg PO DAILY [facility] Last Admin: 01/20/18 09:10 Dose: 5 mg Magnesium Oxide (Magnesium Oxide) 400 mg PO BIDPRN PRN PRN Reason: FOR SERUM MAG 1.4 - 2.0 Magnesium Oxide (Magnesium Oxide) 800 mg PO PRN PRN PRN Reason: FOR SERUM MAG < 1.4 Miscellaneous Medication (Phos-Nak) 1 pkt PO TIDPRN PRN PRN Reason: FOR PHOS LEVEL 1.0 - 1.8 Miscellaneous Medication (Phos-Nak) 2 pkt PO TIDPRN PRN PRN Reason: FOR PHOS LEVEL 0.5 - 1.0 Ccu Electrolyte (Replacement Protocol) 0 each FS PRN PRN PRN Reason: FOR ELECTROLYTE REPLACEMENT Ondansetron HCl (Zofran) 4 mg IVP Q8H PRN PRN Reason: Nausea/Vomiting Pantoprazole Sodium (Protonix) 40 mg IVP DAILY [facility] Last Admin: 01/20/18 09:12 Dose: Not Given Pantoprazole Sodium (Protonix) 40 mg PER TUBE DAILY [facility] Last Admin: 01/20/18 09:10 Dose: 40 mg Potassium Chloride (K-Dur) 40 meq PO ASDIR PRN PRN Reason: FOR SERUM K+ 2.5 - 3.5 Potassium Chloride (Klor-Con) 40 meq PER TUBE ASDIR PRN PRN Reason: FOR SERUM K+ 2.5-3.5 Scopolamine (Transderm Scop) 1.5 mg TOP Q3D [facility] Last Admin: 01/19/18 12:22 Dose: 1.5 mg Sodium Chloride (Flush - Normal Saline) 10 ml IVF PRN PRN PRN Reason: Saline Flush Last Admin: 01/12/18 10:26 Dose: 10 ml Sodium Chloride (Flush - Normal Saline) 10 ml IVF Q12HR [facility] Last Admin: 01/20/18 09:12 Dose: 10 ml Sodium Chloride (Flush - Normal Saline) 10 ml IVF PRN PRN PRN Reason: Saline Flush Sodium Chloride (Flush - Normal Saline) 10 ml IV DAILY [facility] Last Admin: 01/20/18 09:12 Dose: 10 ml
--- NOTE | 2018-01-20 15:52 | PRG ---
DATE OF SERVICE: 01/20/2018 OBJECTIVE: GENERAL: Ms. Norwood is in no distress. VITAL SIGNS: She is afebrile. Heart rate is 94, respiratory rate 16, oximetry is 100% on a trach collar, blood pressure 129/80. LUNGS: Clear. HEART: Regular rhythm. ABDOMEN: Soft. EXTREMITIES: Without edema or asymmetry. LABORATORY DATA: White count 7, hemoglobin 8.5, which is stable, platelets 470,000. Electrolytes are normal. Creatinine is 0.59. IMPRESSION: Status post hemorrhagic cerebrovascular accident. She had bilateral lower extremity venograms today that were negative. We will continue supportive care. Apparently, transfer to an LTAC is the next step per my discussion. Job ID: [id number]
[2018-01-21 05:04] LABS: #Eosinphils 0.5 thou/uL (0.0-0.7); #Monocytes 0.4 thou/uL (0.11-0.59); #Neutrophils 5.4 thou/uL (1.40-6.50); %Basophils 0.3 % (0.0-1.0); %Eosinophils 7.2 % (0.0-10.0); %Monocytes 5.3 % (0.0-10.0); %Neutrophils 73.2 % (42.0-75.0); Hemoglobin 8.9 g/dL (12.0-16.0); Mean Corpuscular HGB CONC 32.1 g/dL (32.0-36.0); Mean Corpuscular Hemoglobin 30.4 pg (27.0-31.0); Mean Corpuscular Volume 94.7 fL (78.0-98.0); Mean Platelet Volume 6.9 fL (7.4-10.4); Platelet Count 520 thou/uL (130-400); Red Blood Cell (RBC) Count 2.91 mill/uL (4.20-5.40); White Blood Cell (WBC) Count 7.4 thou/uL (4.8-10.8)
[2018-01-21 05:23] LABS: Anion Gap 13 mmol/L (10-20); BUN (Urea Nitrogen) 14 mg/dL (7.0-18.7); Calc. Creatinine Clearance 190 mL/min (70-130); Calcium 9.5 mg/dL (7.8-10.44); Carbon Dioxide 25 mmol/L (22-29); Chloride 105 mmol/L (98-107); Estimated GFR-MDRD Greater than 90; Glucose 110 mg/dL (70-105); Magnesium 2.3 mg/dL (1.6-2.6); Potassium 4.4 mmol/L (3.5-5.1); Sodium 139 mmol/L (136-145)
--- NOTE | 2018-01-21 08:45 | PRG ---
DATE OF SERVICE: 01/21/2018 SUBJECTIVE: Her EVD was taken down. She was moved to the [facility] over the weekend. She looks about the same. OBJECTIVE: VITAL SIGNS: Temperature is 97.4, pulse 90, respirations 22, O2 saturation 100%, blood pressure 140/86. HEENT: Unchanged. NECK: Trach in good position. LUNGS: Clear. CARDIAC: S1, S2, regular. ABDOMEN: Soft. EXTREMITIES: No edema. LABORATORY DATA: White blood cell count 7.4, hematocrit 27.6, and platelet count 520. Sodium 139, potassium 4.4, chloride 105, CO2 of 25, BUN 14, creatinine 0.5, glucose 110. ASSESSMENT: 1. Status post aneurysmal bleed. 2. History of respiratory failure, requiring tracheostomy placement. PLAN: I think, we can go ahead and stop the daily labs. She is ready to go back to an LTAC when accepted. The micafungin should be stopped at the 2-week point, which would be on 01/25. I would ask Dr. Villegas, about the cefepime and linezolid. Job ID: [id number]
[2018-01-21] MEDS: Acetaminophen 650 MG/20.3 ML UDCUP PER TUBE SCH ×2 (09:28→13:48)
[2018-01-21] MEDS: Glycopyrrolate 1 MG TAB PER TUBE SCH ×2 (09:28→13:48)
[2018-01-21] MEDS: levETIRAcetam 500 mg/5 ml Oral Solution PER TUBE SCH (09:30)
[2018-01-21] MEDS: Linezolid 600 MG TAB PO SCH (09:30)
[2018-01-21] MEDS: Lisinopril 5 MG TAB PO SCH (09:31)
[2018-01-21] MEDS: Pantoprazole 40 MG GRANULES PACKET PER TUBE SCH (09:31)
[2018-01-21] MEDS: Pantoprazole 40 MG VIAL IVP SCH (09:31)
[2018-01-21] MEDS: Cefepime 2 GM in Sodium Chloride 0.9% 100 ML IVPB SCH (09:36)
[2018-01-21] MEDS: Hydrocortisone 1% Cream 30 GM TUBE TOP SCH (09:37)
[2018-01-21 11:20] VITALS: TEMP 96.6
[2018-01-21] MEDS: Micafungin 100 MG in Sodium Chloride 0.9% 100 ML IVPB SCH (11:45)
[2018-01-21 12:31] VITALS: BP 155/108
--- NOTE | 2018-01-21 13:32 | PDOC.PN ---
- Subjective Encounter Start Date: 01/21/18 Encounter Start Time: 07:45 -: non-verbal Subjective: not in distress - Objective Resuscitation Status - Order Detail: 01/01/18 12:06 Resuscitation Status Routine Resuscitation Status: FULL: Full Resuscitation Discussed with: per previous order MAR Reviewed: Yes Vital Signs & Weight: Vital Signs (12 hours) Temp Pulse Pulse Pulse Resp BP BP 01/21/18 11:20 96.6 F L 95 27 H 01/21/18 10:23 93 22 H 01/21/18 09:31 90 01/21/18 09:26 103 H 93 155/108 H 148/91 H 01/21/18 07:48 01/21/18 07:44 01/21/18 07:38 90 22 H 01/21/18 07:25 97.4 F L 86 29 H 01/21/18 04:45 99.8 F H 91 29 H 01/21/18 04:00 99.8 F H 87 16 BP Pulse Ox Pulse Ox Pulse Ox 01/21/18 11:20 144/94 H 100 01/21/18 10:23 99 01/21/18 09:31 01/21/18 09:26 100 100 01/21/18 07:48 100 01/21/18 07:44 99 01/21/18 07:38 100 01/21/18 07:25 140/86 100 01/21/18 04:45 148/87 H 100 01/21/18 04:00 134/91 H 100 Weight Admit Weight 214 lb 8.015 oz Weight 217 lb Most Recent Monitor Data Heart Rate from ECG 88 NIBP 135/82 NIBP BP-Mean 99 Respiration from ECG 25 SpO2 100 I&O: 01/20/18 01/21/18 01/22/18 06:59 06:59 06:59 Intake Total 3050 2500 300 Output Total 1775 1475 Balance 1275 1025 300 Result Diagrams: 01/21/18 04:58 01/21/18 04:58 Phys Exam - Physical Examination HEENT: PERRLA, moist MMs Neck: no JVD trach+ Respiratory: no wheezing, no rales Cardiovascular: RRR, no significant murmur Gastrointestinal: soft, non-tender, positive bowel sounds peg+ Musculoskeletal: no edema, pulses present left hemiplegia, aphasia, dysphagia Dx/Plan (1) Hydrocephalus Code(s): G91.9 - HYDROCEPHALUS, UNSPECIFIED Status: Acute Comment: s/p removal of EVD, 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 Had right craniectomy with evacuation of hemorrage and coiling of aneurysm. Had subsequent edema at craniotomy site. Scan revealed hydrocephalus. (2) Encephalopathy Code(s): G93.40 - ENCEPHALOPATHY, UNSPECIFIED Status: Chronic Comment: chronic with worsoning? (3) Chronic anemia Code(s): D64.9 - ANEMIA, UNSPECIFIED Status: Chronic (4) Seizure disorder Code(s): G40.909 - EPILEPSY, UNSP, NOT INTRACTABLE, WITHOUT STATUS EPILEPTICUS Status: Chronic (5) trach and peg Status: Chronic (6) UTI (urinary tract infection) Status: Acute Qualifiers: Urinary tract infection type: site unspecified Hematuria presence: without hematuria Qualified Code(s): N39.0 - Urinary tract infection, site not specified Comment: growing Pseudomonas on 2 separate cultures. Also some yeast. Febrile again. ID following. On Linezolid, cefepime and micafungin. Ortega exchanged. - Plan hemostable -: fever has subsided -: zyvox and cefepime for 6 more days and micafungin till -: june tx to [facility] -: meds reconciled for tx * .
--- NOTE | 2018-01-21 16:52 | DIS ---
DATE OF ADMISSION: 12/25/2017 DATE OF DISCHARGE: 01/21/2018 DISCHARGE DISPOSITION: [facility]. PRIMARY DISCHARGE DIAGNOSES: Hydrocephalus with history of hemorrhagic stroke and left hemiplegia, status post external ventricular drain placement and removal, sepsis, urinary tract infection, chronic encephalopathy due to massive cerebrovascular accident, left hemiplegia, dysphagia, and aphasia, chronic anemia, seizure disorder secondary to stroke, history of trach and PEG. PROCEDURES DONE DURING HOSPITALIZATION: A CT brain done on the day of admission showed frontal and temporal cortex protrudes through the craniotomy defect in the right cerebral hemisphere pushing the prosthetic plate outward. There is midline shift to the right as described. There is also some acute blood product present along the posterior margin of a large cystic area probably representing the cavity from the previously noted large hematoma. The patient had a left frontal extraventricular drain placed by Dr. Tracey, and this was done on 12/25/2017. Ultrasound venous Doppler x2 showed no evidence of deep venous thrombosis in the lower extremities. The patient has had multiple imaging studies for the brain during the course of her stay here. Abdominal and pelvic CAT scan done on 01/02/2018, due to PEG tube dislodgement, showed abnormal density along the anterior abdominal wall in the subcutaneous tissue measuring up to 3 cm thickness, a complex fluid or abscess collection or possibly hematoma or considerations. The patient had percutaneous endoscopic gastrostomy tube placed by Dr. Robledo on 01/04/2018 for dislodged PEG tube. The blood cultures x3, no growth. Urine culture grew Pseudomonas on 12/28/2017 and again on 01/10/2018. The Pseudomonas was resistant to meropenem on the first culture and on the second culture, it was sensitive to all antibiotics. Stool for Clostridium difficile was negative. Discharge hemoglobin and hematocrit of 8 and 27, platelet count 520. Discharge BUN and creatinine of 14 and 0.5. CRP 5.9. Albumin level was 3.3 on the 25 of December. DISCHARGE MEDICATIONS: 1. DuoNeb q.i.d. 2. Jevity reduced fiber via PEG tube. 3. Keppra 1000 mg twice daily. 4. Lisinopril 5 mg daily. 5. Singulair 10 mg daily. 6. Protonix 40 mg daily. 7. MiraLAX 17 g daily. 8. Scopolamine patch 1.5 mg topical q.72 hourly. 9. Venlafaxine extended release 75 mg p.o. twice daily. 10. Cefepime 2 g IV q.12 hourly for a total of six days. 11. Zyvox 600 mg p.o. q.12 hourly for a total of six days. 12. Micafungin 100 mg IV daily till the of this month. 13. Lantus 10 units subcu q.a.m. ALLERGIES: ALLERGIC TO ZOSYN AND CODEINE. INPATIENT CONSULTS: 1. Dr. Tracey/Dr. Jeong for Neurosurgery. 2. Dr. Looney/Dr. Ratliff for Pulmonology. 3. Dr. Villegas for Infectious Disease. BRIEF COURSE DURING HOSPITALIZATION: The patient initially was admitted on the by Neurosurgery for altered mental state with swelling at the right craniectomy site. She was transferred from [facility] in [place]. She was found to have had obstructive hydrocephalus and had external ventricular drain placed. The patient had significant history of decompressive hemicraniectomy done on the right by Dr. Jeong on 11/20/2017 for hemorrhagic stroke with coiling of aneurysm done at the right MCA bifurcation region on the 24 of November. She was also empirically placed on IV cefepime and Zyvox. The patient grew Roseann in the urine and was placed on micafungin as well. The patient has aphasia, dysphagia, and is on trach and PEG. She was closely monitored in ICU. Her external ventricular drain was removed on the after being clamped for 3 days prior to removal. The patient had a temperature of 100 over the weekend and was monitored for extended period prior to being transferred today to LTAC at [facility]. A total of 35 minutes was spent on discharge plan. Please note, the patient's antibiotics including cefepime and Zyvox is to be given for a total of six days and micafungin till the of this month. Dr. Jeong's office will call her for replacement of skull tablet by their office. Overall prognosis appears to be guarded. The patient likely has chronic encephalopathy from stroke, likely this is static. Job ID: [id number] MTDD
== END 2018-01-21 14:23 | DRG 25 ==
LOC: ERS 17:18 → CCU 21:57 → IMCU/EMU 01-19 01:57
PROVIDERS: ADMIT Surgery; ATTEND Surgery
PROC: 009630Z Drainage of Cerebral Ventricle with Drainage Device, Percutaneous Approach (ICD-10-PCS; principal; 2017-12-25)
PROC: 0DH63UZ Insertion of Feeding Device into Stomach, Percutaneous Approach (ICD-10-PCS; 2018-01-04)
DX: G91.1 Obstructive hydrocephalus (principal); G93.5 Compression of brain; I61.5 Nontraumatic intracerebral hemorrhage, intraventricular; A41.9 Sepsis, unspecified organism; G93.49 Other encephalopathy; N39.0 Urinary tract infection, site not specified; Z51.5 Encounter for palliative care; Z43.1 Encounter for attention to gastrostomy; I69.154 Hemiplegia and hemiparesis following nontraumatic intracerebral hemorrhage affecting left non-dominant side; I10 Essential (primary) hypertension; J45.909 Unspecified asthma, uncomplicated; F31.9 Bipolar disorder, unspecified; I69.191 Dysphagia following nontraumatic intracerebral hemorrhage; R13.10 Dysphagia, unspecified; I69.120 Aphasia following nontraumatic intracerebral hemorrhage; I69.198 Other sequelae of nontraumatic intracerebral hemorrhage; R56.9 Unspecified convulsions; L27.0 Generalized skin eruption due to drugs and medicaments taken internally; D64.9 Anemia, unspecified; K21.9 Gastro-esophageal reflux disease without esophagitis; Z93.0 Tracheostomy status; B96.5 Pseudomonas (aeruginosa) (mallei) (pseudomallei) as the cause of diseases classified elsewhere; Z88.1 Allergy status to other antibiotic agents; T36.0X5A Adverse effect of penicillins, initial encounter; Z88.5 Allergy status to narcotic agent; Z79.899 Other long term (current) drug therapy
CPT/HCPCS: 36415; 36416; 49465; 70450; 71045; 74018; 74177; 80048; 80053; 80202; 81003; 81015; 82945; 83735; 84100; 84157; 85007; 85025; 85027; 85652; 86140; 87040; 87045; 87046; 87070; 87077; 87086; 87149; 87186; 87205; 87324; 87449; 87899; 93970; 94640; 96361; 96374; 96375; A4216; C9113; G8978-GP-CN; G8979-GP-CM; G8980-GP-CK; G8987-GO-CN; G8988-GO-CN; G8989-GO-CN; J0131; J0670; J0692; J1200; J1940; J1953; J2001; J2020; J2185; J2248; J2270; J2543; J2704; J2920; J2997; J3370; J3475; J3480; J7050; J7620

== ENCOUNTER 2018-03-05 21:45 | Inpatient (IN) | payer MEDICARE, MEDICAID ==
--- NOTE | 2018-03-05 22:56 | PDOC.FPRHP ---
- History of Present Illness Chief Complaint: Increased swelling Rt head History of Present Illness: Pt is a 48 yo F presented after CT showed increasing hydrocephalus. Ms Norwood has a PMH of right decompressive hemicraniectomy with Dr. 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 Pt is a transfer from [facility] ([facility]) on a trach collar. It is unclear at this time if the head CT was routine, or if the patient had mental status changes to prompt the CT. Aunt and daughter are at bedside; both state that patient appears to be at baseline except for some increased Rt sided parietal/temporal swelling since they saw her last week. Her responsiveness and eye opening is at baseline, and pt aunt even stated that she has said "okay" once quietly, which is an improvement for her. Upon admission to [facility], patient was started on fluids and q2h neuro checks. - Allergies/Adverse Reactions Allergies Allergy/AdvReac Type Severity Reaction Status Date / Time piperacillin [From Zosyn] Allergy Severe Rash Verified 01/14/18 09:38 tazobactam [From Zosyn] Allergy Severe Rash Verified 01/14/18 09:38 codeine Allergy Verified 12/25/17 23:29 - Home Medications Medication Instructions Recorded Confirmed Type Glycopyrrolate [Robinul] 1 mg PER TUBE TID 12/25/17 03/06/18 History Ipratropium/Albuterol Sulfate 3 ml NEB QID 12/25/17 03/06/18 History [DuoNeb] Labetalol HCl [Normodyne] 10 mg SLOW IVP Q6HR PRN 12/25/17 03/06/18 History Scopolamine [Transderm Scop] 1.5 mg TOP Q3D 12/25/17 03/06/18 History levETIRAcetam [Keppra Oral 1,000 mg PER TUBE BID 12/25/17 03/06/18 History Solution] Acetaminophen [Acetaminophen 650 mg WV Q4HR PRN 03/06/18 03/06/18 History Suppository] Bisacodyl [Dulcolax] 10 mg PO DAILY PRN 03/06/18 03/06/18 History Dextrose 50% 12.5 mg IV DAILY PRN 03/06/18 03/06/18 History Enoxaparin Sodium [Lovenox] 60 mg SQ BID 03/06/18 03/06/18 History Glucagon 1 mg IM ONE PRN 03/06/18 03/06/18 History Metoprolol Tartrate [Lopressor] 25 mg PO BID 03/06/18 03/06/18 History Modafinil [Provigil] 100 mg PO BID 03/06/18 03/06/18 History Ondansetron HCl/PF [Ondansetron 4 mg IV Q8HR PRN 03/06/18 03/06/18 History HCl 4 mg/2 ml Syr] Pantoprazole [Protonix] 40 mg PO DAILY 03/06/18 03/06/18 History Scopolamine [Transderm Scop] 1.5 mg TOP Q3D 03/06/18 03/06/18 History diphenhydrAMINE [Benadryl] 50 mg IV Q6HR PRN 03/06/18 03/06/18 History hydrOXYzine [Atarax] 25 mg PO QID PRN 03/06/18 03/06/18 History - History PMHx: intracranial hemorrhage, hydrocephalus, GERD, HTN, depression, DM PSHx: rt decompressive hemicraniectomy, coiling aneurysm rt MCA bifurcation, trach collar, peg tube, rt lateral malleolar fx s/p ORIF, s/p external ventriculostomy that was removed, cholecystectomy FHx: non contributory Social: no t/a/c. In [facility]. - Review of Systems ROS unobtainable: due to mental status (Patient able to squeeze fingers when told to, when asked to shake head yes or no she could not) - Vital signs BP: [147/107] HR: [78] RR: [18] Tmax: [98.4] Pox: [100]% on [RA] Wt: 90 kg - Physical Exam Constitutional: NAD HEENT: MMM, oropharynx clear, other (Swelling rt parietal region of hemicraniectomy; pupils sluggish and do not track together, eom not intact) Neck: supple, no LAD Heart: RRR, normal S1/S2 Lungs: CTAB, no wheezing Abdomen: soft, bowel sounds present, no masses/distention Musculoskeletal: other (right side structure normal, left side upper and lower extremity increased tone) Neurological: other (Patient responds when told to squeeze hand, able to move her right leg. Eyes flutter, unable to open fully. Pt unable to control mouth movement on demand. Patient hears well.) Skin: good turgor, capillary refill <2 seconds, no jaundice, other (rash on right hip from scratching) Psychiatric: other (flat affect, unknown capacity, judgment or insight. Patient smiled appropriately while family talked with her) FMR H&P: Results - Labs Result Diagrams: 03/06/18 00:52 03/06/18 00:52 - Radiology Interpretation CT scan - head Status: pending Additional comment: pending FMR H&P: A/P - Problem List (1) Hydrocephalus Current Visit: No Status: Acute Code(s): G91.9 - HYDROCEPHALUS, UNSPECIFIED Comment: s/p removal of EVD, 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 Had right craniectomy with evacuation of hemorrage and coiling of aneurysm. Had subsequent edema at craniotomy site. Scan revealed hydrocephalus. (2) Status post craniectomy Current Visit: No Status: Chronic Code(s): Z98.890 - OTHER SPECIFIED POSTPROCEDURAL STATES (3) Encephalopathy Current Visit: No Status: Chronic Code(s): G93.40 - ENCEPHALOPATHY, UNSPECIFIED Comment: chronic with worsoning? (4) trach and peg Current Visit: No Status: Chronic (5) GERD (gastroesophageal reflux disease) Current Visit: Yes Status: Chronic Code(s): K21.9 - GASTRO-ESOPHAGEAL REFLUX DISEASE WITHOUT ESOPHAGITIS (6) HTN (hypertension) Current Visit: Yes Status: Chronic Code(s): I10 - ESSENTIAL (PRIMARY) HYPERTENSION (7) DM2 (diabetes mellitus, type 2) Current Visit: Yes Status: Chronic - Plan 48 yo F with hydrocephalus Hydrocephalus - Patient mental status appears to be at baseline, per family; called [facility] facility however no response - CT brain w/o contrast ordered for AM - Neurosurgery consult for ventricular shunt placement - NPO for possible surgery in AM - Pt home med list states she is on heparin AND warfarin, unknown as to reason; both held for possible shunt placement, Coags pending - q2h neuro checks Urinary catheter, [facility] use -UA with culture pending s/p peg tube placement s/p tracheostomy -Trach care GERD -Protonix 40 mg IV HTN - restart home meds DM -not on any medication -A1C pending -accuchecks with meals -Diabetes protocol, mild SSI DVT ppx: held Diet: NPO for possible shunt placement Dispo: IMCU inpatient, LOS >2 midnights Code status: full code FMR H&P: Upper Level - Pertinent history Brigida Norwood is a 48 year old female with a prior history of intracranial hemorrhage s/p craniectomy and aneurysm clipping complicated by acute hydrocephalus who presents as a transfer from [facility] due to concern for recurring hydrocephalus. A CT scan was performed at the [facility] which showed a possible new intracranial fluid collection. The CT scan was performed reportedly due to possible change in baseline however, pt's daughter and sister are present in the room and note no change in baseline level of functioning. - Pertinent findings Vitals: Physical Exam General: in no distress HEENT: well-healing right-sided scalp incision with some bulging underneath; otherwise no erythema or drainage. Heart: RRR, no murmurs, rubs, or gallops Lungs: clear to auscultation bilaterally; no rales, wheezes, or rhonchi. Neuro: GCS 11 ([id number]) Non-contrast head CT scan from outside facility: A CSF density crescenteic shaped fluid collection is noted immediately deep to the reconstruction flap measuring 0.8cm in thickness. The collection extends along the entirety of the plate. External to the plate, a crescentic fluid collection is demonstrated measuring 1.0 cm in thickness. - Plan Date/Time: 03/05/18 9737 IFarzaneh, have evaluated this patient and agree with findings/plan as outlined by music industry intern resident. Pertinent changes/additions are listed here. Acute hydrocephalus - CT demonstrates new fluid collection surrounding reconstruction flap with some lateral displacement of the flap otherwise no midline shift is noted. No new areas of hemorrhage noted. - fluid is unlikely abscess/infectious given lack of systemic symptoms. -Discussed the case with Ravinder Mosqueda PA-C who recommended repeat CT in am. Neuro checks Q2H. Pseudomonas isolated from trach - reportedly. records from outside hospital show sputum GS with many gram negative rods; no cultures available. -likely colonization given no system signs. Will hold off on antibiotics at this time. Urinary tract infection - will treat with rocephin. - culture pending Chronic Hypoxic Respiratory failure with trach - satting 100% on trach collar - suctioning prn. Will add duonebs. Recent history Right upper extremity DVT - upper extremity Doppler US shows high-grade non-occlusive thrombosis of right axillary and right brachial veins - pt on anticoagulation. Will hold anticoagulation in AM in case of possible procedure. History of seizures - will resume Keppra. PEG tube in place - will resume previous tube feed regimen. Addendum - Attending - Attending Attestation Date/Time: 03/06/18 1376 I personally evaluated the patient and discussed the management with Dr. German I agree with the History, Examination, Assessment and Plan documented above with any addition or exceptions noted below.For formal Neurosurgical consult and repeat CT . Note trachoestomy with positive Pseudomonas status unknown last trach change expectant management.
[2018-03-05 23:06] VITALS: BMI 31.1
[2018-03-06] MEDS ORDERED: Acetaminophen 325 MG TAB PO PRN (00:28)
[2018-03-06] MEDS ORDERED: Acetaminophen 650 MG Suppository PR PRN ×2 (00:28→04:18)
[2018-03-06 00:34] LABS: Bilirubin Negative (Negative); Blood, Urine Negative (Negative); Clarity CLOUDY (Clear); Glucose, Urine (Dipstick) Negative (Negative); Leukocyte Large (Negative); Nitrite Positive (Negative); Protein, Urine (Dipstick) Trace mg/dL (Neg-Trace); Specific Gravity, Urine 1.023 (1.002-1.036)
[2018-03-06 00:36] LABS: Bacteria/HPF 2+ HPF (None Seen); Hyaline Casts/LPF 0-3 HYALINE CAST LPF (0-3 Hyaline); Pathc Cast-AUWi Flag 0.72 (0-2.49); Squamous Epithelial None Seen HPF (0-3)
[2018-03-06 00:37] LABS: Urine Culture Reflex Yes Yes
[2018-03-06 01:00] LABS: #Eosinphils 0.3 thou/uL (0.0-0.7); #Lymphocytes 1.3 thou/uL (1.20-3.40); #Monocytes 0.4 thou/uL (0.11-0.59); #Neutrophils 4.1 thou/uL (1.40-6.50); %Basophils 0.7 % (0.0-1.0); %Eosinophils 4.6 % (0.0-10.0); %Lymphocytes 21.1 % (21.0-51.0); %Monocytes 5.9 % (0.0-10.0); %Neutrophils 67.7 % (42.0-75.0); Mean Corpuscular HGB CONC 33.4 g/dL (32.0-36.0); Mean Corpuscular Hemoglobin 30.8 pg (27.0-31.0); Mean Corpuscular Volume 92.3 fL (78.0-98.0); Mean Platelet Volume 7.5 fL (7.4-10.4); Platelet Count 364 thou/uL (130-400); RBC Distribution Width 13.7 % (11.5-14.5); Red Blood Cell (RBC) Count 3.57 mill/uL (4.20-5.40); White Blood Cell (WBC) Count 6.1 thou/uL (4.8-10.8)
--- NOTE | 2018-03-06 01:03 | PDOC.EVN ---
Addendum - Attending - Attending Attestation Date/Time: 03/06/18 0049 I personally evaluated the patient and discussed the management with Drs. Bart German and Jack Marie seen/admitted prior to midnight I agree with the History, Examination, Assessment and Plan documented in resident HX and PE see for specific details. 48 yo female accepted in transfer from Rehab facilty in [place] with abnormal CT finding today and change to mental status. Patient s/p ICH from right sided aneursymal bleed s/p coil and decompression craniotomy and placement external Ventricular shunt. Hospitalized 11/20/2017 -01/12/2018 PEG tube and tracheostomy placed and transferred to rehab. Appr 3 week ago per family history RUE DVT found and patient started on lovenox. Patient with dense left hemiparesis she is non verbal but follow commands and purposefully moves RUE. Residents have spoken with patients Aunt who is MPOA regard Code status and POC. Scalp with marked fluid collection at site of craniotomy will and have CT in AM and formal Neurosurgical consult for further recommendations regard any need shunt placement/revision.
[2018-03-06 01:06] LABS: Prothrombin Time 13.2 SEC (12.0-14.7)
[2018-03-06 01:07] LABS: PTT 32.5 SEC (22.9-36.1)
[2018-03-06 01:23] LABS: ALT (SGPT) 43 U/L (8-55); AST (SGOT) 20 U/L (5-34); Albumin 3.8 g/dL (3.5-5.0); Alkaline Phosphatase 176 U/L (40-150); Anion Gap 17 mmol/L (10-20); BUN (Urea Nitrogen) 13 mg/dL (7.0-18.7); Bilirubin, Total Less than 0.2 mg/dL (0.2-1.2); Calc. Creatinine Clearance 159 mL/min (70-130); Calcium 9.5 mg/dL (7.8-10.44); Carbon Dioxide 23 mmol/L (22-29); Chloride 105 mmol/L (98-107); Estimated GFR-MDRD Greater than 90; Globulin 4.3 g/dL (2.4-3.5); Glucose 106 mg/dL (70-105); Potassium 4.3 mmol/L (3.5-5.1); Protein, Total 8.1 g/dL (6.0-8.3); Sodium 141 mmol/L (136-145)
[2018-03-06] MEDS: Sodium Chloride 0.9% 1,000 ML IV SCH ×3 (01:52→16:50)
[2018-03-06] MEDS ORDERED: Bisacodyl 5 MG TAB PO PRN (04:18)
[2018-03-06] MEDS ORDERED: diphenhydrAMINE 50 MG/ML VIAL IVPB PRN (04:18)
[2018-03-06] MEDS ORDERED: hydrOXYzine 25 MG TAB PO PRN (04:18)
[2018-03-06] MEDS ORDERED: Dextrose 50% Abboject 50 ML SYRINGE SLOW IVP PRN ×2 (04:18→04:39)
[2018-03-06] MEDS ORDERED: Labetalol HCl 100 MG/20 ML VIAL SLOW IVP PRN (04:18)
[2018-03-06] MEDS ORDERED: Ondansetron PF 4 MG/2 ML Vial SLOW IVP PRN (04:18)
[2018-03-06] MEDS ORDERED: Scopolamine 1.5 mg/72 hour Patch TOP SCH (04:30)
[2018-03-06] MEDS ORDERED: HumaLOG 300 UNITS/3 ML VIAL SC PRN (04:39)
[2018-03-06] MEDS ORDERED: Dextrose 5% in Water 1,000 ML IV PRN (04:39)
[2018-03-06] MEDS ORDERED: diphenhydrAMINE 50 MG/ML VIAL IVP PRN (04:45)
[2018-03-06 05:13] LABS: Hemoglobin A1c 4.9 % (4.0-6.0)
[2018-03-06] MEDS: cefTRIAXone\\ROCEPHIN 1 GM in Sodium Chloride 0.9% 100 ML IVPB SCH (06:18)
[2018-03-06] MEDS: Scopolamine 1.5 mg/72 hour Patch TOP SCH (06:18)
--- NOTE | 2018-03-06 06:46 | PDOC.FM ---
- Subjective Subjective: Pt able to smirk and move hands. Pt does not appear to be in any acute distress. Family present in the room. States pt is at baseline at this time. No reported acute events overnight. - Objective MAR Reviewed: Yes Vital Signs & Weight: Vital Signs (12 hours) Temp Pulse Resp BP Pulse Ox 03/06/18 04:28 97.8 F 86 14 166/86 H 96 03/06/18 00:28 98.2 F 83 17 141/98 H 98 03/05/18 22:00 98.4 F 78 18 147/107 H 100 Weight Weight 90.265 kg I&O: 03/04/18 03/05/18 03/06/18 06:59 06:59 06:59 Intake Total 502 Output Total 500 Balance 2 Result Diagrams: 03/06/18 00:52 03/06/18 00:52 EKG Reviewed by me: Yes Radiology Reviewed by me: Yes Radiology: 03/06 CT: No acute intracranial hemorrhage. Persistent extracranial herniation at site of craniotomy flap. Prominent encephalomacia w/ ex vacuo dilatation of vetricular system. Rightward midline shift is present due to the above described extracranial herniation. Interval evolution of prior intracranial hemorrhag, without evidence of interval acute intracranial hemorrhage. Hypodensity of the r. occipital lobe, which has developed. May rleate to edema or evolution of encephalomalacia. Phys Exam - Physical Examination Constitutional: NAD HEENT: PERRLA, moist MMs Neck: no nodes, supple Trach in place, no excessive drainage Some mild rales noted bilaterally Cardiovascular: RRR, no significant murmur, no rub Gastrointestinal: soft, no distention, positive bowel sounds Musculoskeletal: no edema, pulses present Hard to assess neuro status due to pts mentation. Pt did smirk in response Skin: normal turgor Deviation from normal: Has fungal rash in groin Dx/Plan (1) Hydrocephalus Code(s): G91.9 - HYDROCEPHALUS, UNSPECIFIED Status: Acute (2) UTI (urinary tract infection) Status: Acute Qualifiers: Urinary tract infection type: site unspecified Hematuria presence: without hematuria Qualified Code(s): N39.0 - Urinary tract infection, site not specified (3) DM2 (diabetes mellitus, type 2) Status: Chronic Qualifiers: Diabetes mellitus fci insulin use: without fci use Diabetes mellitus complication status: without complication Qualified Code(s): E11.9 - Type 2 diabetes mellitus without complications (4) HTN (hypertension) Code(s): I10 - ESSENTIAL (PRIMARY) HYPERTENSION Status: Chronic (5) Status post craniectomy Code(s): Z98.890 - OTHER SPECIFIED POSTPROCEDURAL STATES Status: Chronic (6) trach and peg Status: Chronic (7) Pseudomonas aeruginosa colonization Code(s): Z22.39 - CARRIER OF OTHER SPECIFIED BACTERIAL DISEASES Status: Acute - Plan Plan: Hydrocephalus - Patient mental status appears to be at baseline, per family - CT brain w/o contrast read above in noted. Shows increase in encephalomalcia. - Neurosurgery consult for ventricular shunt placement. will follow recs - NPO for possible surgery in AM - Pt home med list states she is on heparin AND warfarin, unknown as to reason; both held for possible shunt placement, - q2h neuro checks UTI -UA nitrite +, LE- Large, with WBC and urine bacteria -Tx with rocephin and levaquin abx -Pt had recent P. auerginosa UTI. -Urine cx pending s/p peg tube placement -NPO for now pending surgical assessment. Restart tube feeds once cleared s/p tracheostomy w/ recent P. auerginosa colonization -Zosyn Allergy. On levaquin abx for UTI and to cover. -Pulm consulted- Dr. Ratliff/Garcia- follow recs GERD -Protonix 40 mg IV HTN -Continue home meds DM -A1C 4.9 -No need for medication at this time. -accuchecks with meals -Diabetes protocol, mild SSI Addendum - Attending - Attending Attestation Date/Time: 03/06/181912 I personally evaluated the patient and discussed the management with Dr. Ferraro I agree with the History, Examination, Assessment and Plan documented above with any addition or exceptions noted below.Appreciate recommendation from Critical care and neurosurgery. Levaquin started to cover UTI history previous Pseudomonal UTI and note tracheostomy at LTAC fcaility tested positive for pseudomonas. Patient family at bedside and questions answered regard POC.
--- NOTE | 2018-03-06 08:20 | CT ---
CT OF HEAD: Indication: Intracranial hemorrhage, status post craniotomy. Hydrocephalus. Follow up. FINDINGS: Reference is made to 01-19-18. Re-demonstration of right teratoma craniotomy with overlying synthetic craniotomy flap. Extracranial herniation is re-demonstrated with prominent volume of associated encephalomalacia of the right front al parietal lobe. There is exvacuo dilatation and rightward midline shift. There has been expected in terval temporal evolution of prior parenchymal hemorrhage. No new hemorrhage is seen. Persistent pont ine gliosis is present. Re-demonstration of radiopaque density producing streak artifact at the site of extracranial herniation. There is low attenuation of the right occipital lobe. IMPRESSION: 1. No acute intracranial hemorrhage. 2. Persistent extracranial herniation at site of craniotomy flap. There is prominent encephalomalacia with exvacuo dilatation of the ventricular system. 3. Rightward midline shift is present due to the above described extracranial herniation. 4. Interval temporal evolution of prior intracranial hemorrhage, without evidence of interval acute i ntracranial hemorrhage. 5. Hypodensity of the right occipital lobe, which has developed. This may relate to edema or developi ng encephalomalacia. Continued follow up may be obtained as indicated. POS: RAVIN
[2018-03-06] MEDS: Pantoprazole 40 MG VIAL IVP SCH ×2 (09:40→20:44)
[2018-03-06] MEDS: levETIRAcetam In NaCl (Iso-Os) 1,000 MG in Premix Bag 1 BAG IVPB SCH ×2 (09:40→20:44)
[2018-03-06] MEDS: Glycopyrrolate 1 MG TAB PER TUBE SCH ×3 (09:45→20:44)
[2018-03-06] MEDS ORDERED: Haloperidol Lactate 5 MG/ML VIAL IM PRN (14:30)
[2018-03-06 16:49] VITALS: BP 136/90
[2018-03-06] MEDS: Modafinil 100 MG TAB PO SCH (17:28)
[2018-03-06] MEDS ORDERED: Sodium Bicarbonate Tab 325 MG TAB PER TUBE PRN (21:25)
[2018-03-06] MEDS ORDERED: Pancrelipase DR 12000 1 CAP FS PRN (21:25)
[2018-03-07] MEDS: Modafinil 100 MG TAB PO SCH ×3 (03:58→21:13)
[2018-03-07] MEDS: cefTRIAXone\\ROCEPHIN 1 GM in Sodium Chloride 0.9% 100 ML IVPB SCH (05:51)
[2018-03-07] MEDS: Sodium Chloride 0.9% 1,000 ML IV SCH ×2 (05:51→14:47)
--- NOTE | 2018-03-07 07:10 | PDOC.FM ---
- Subjective Subjective: Pt responds to yes/no questions. Able to partially open eyes to command. Able to squeeze my fingers with her hand on command. Pt denies any pain. Pt denies any distress at this time. No concerns from nursing at this time. - Objective MAR Reviewed: Yes Vital Signs & Weight: Vital Signs (12 hours) Temp Pulse Resp Pulse Ox 03/07/18 04:00 97.4 F L 03/07/18 02:38 98 03/07/18 00:00 97.3 F L 03/06/18 20:00 98.2 F 95 03/06/18 19:39 77 15 96 Weight Admit Weight 90.265 kg Weight 90.265 kg Most Recent Monitor Data Heart Rate from ECG 88 NIBP 146/82 NIBP BP-Mean 103 Respiration from ECG 18 SpO2 97 I&O: 03/06/18 03/07/18 03/08/18 06:59 06:59 06:59 Intake Total 502 1439 Output Total 500 2400 Balance 2 -961 Result Diagrams: 03/06/18 00:52 03/06/18 00:52 EKG Reviewed by me: Yes Radiology Reviewed by me: Yes (No new imagaing to review) Phys Exam - Physical Examination Constitutional: NAD HEENT: PERRLA, moist MMs Respiratory: no wheezing, no rales, clear to auscultation bilateral Cardiovascular: RRR, no significant murmur, no rub Gastrointestinal: soft, non-tender, no distention, positive bowel sounds Musculoskeletal: no edema, pulses present Pt able to follow yes no commands. Strength on hand car worker helper 4/5 Deviation from normal: Pt able to pen eyes and respond to yes no questions by nodding head Skin: normal turgor Dx/Plan (1) Hydrocephalus Code(s): G91.9 - HYDROCEPHALUS, UNSPECIFIED Status: Acute (2) UTI (urinary tract infection) Status: Acute Qualifiers: Urinary tract infection type: site unspecified Hematuria presence: without hematuria Qualified Code(s): N39.0 - Urinary tract infection, site not specified (3) DM2 (diabetes mellitus, type 2) Status: Chronic Qualifiers: 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: without laborer marine terminal use Diabetes mellitus complication status: without complication Qualified Code(s): E11.9 - Type 2 diabetes mellitus without complications (4) HTN (hypertension) Code(s): I10 - ESSENTIAL (PRIMARY) HYPERTENSION Status: Chronic (5) Status post craniectomy Code(s): Z98.890 - OTHER SPECIFIED POSTPROCEDURAL STATES Status: Chronic (6) trach and peg Status: Chronic (7) Pseudomonas aeruginosa colonization Code(s): Z22.39 - CARRIER OF OTHER SPECIFIED BACTERIAL DISEASES Status: Acute - Plan Plan: Hydrocephalus - Patient had some agitation last night. Pt mental status at baseline this morning - CT brain w/o contrast read above in noted. Shows increase in encephalomalcia. - Neurosurgery consult for ventricular shunt placement. will follow recs - Restarted tube feeds and will await neurosurgery recs. - Pt home med list states she is on heparin AND warfarin, unknown as to reason; both held for possible shunt placement, Will want to restart as soon as possible - q2h neuro checks UTI -UA nitrite +, LE- Large, with WBC and urine bacteria -Tx with rocephin and levaquin abx -Pt had recent P. auerginosa UTI. -Urine cx pending s/p peg tube placement -NPO for now pending surgical assessment. Restart tube feeds once cleared s/p tracheostomy w/ recent P. auerginosa colonization -Zosyn Allergy. On levaquin abx for UTI and to cover. -Pulm consulted- Dr. Ratliff/Garcia- follow recs GERD -Protonix 40 mg IV HTN -Continue home meds DM -A1C 4.9 -No need for medication at this time. -accuchecks with meals -Diabetes protocol, mild SSI Addendum - Attending - Attending Attestation Date/Time: 03/07/181956 I personally evaluated the patient and discussed the management with Dr. Ferraro I agree with the History, Examination, Assessment and Plan documented above with any addition or exceptions noted below.Will await Neurosurgery recommendation and hold lovenox for now.
[2018-03-07] MEDS: Pantoprazole 40 MG VIAL IVP SCH ×2 (09:02→21:14)
[2018-03-07] MEDS: Glycopyrrolate 1 MG TAB PER TUBE SCH ×3 (09:02→21:13)
[2018-03-07] MEDS: levETIRAcetam In NaCl (Iso-Os) 1,000 MG in Premix Bag 1 BAG IVPB SCH ×2 (09:02→21:13)
--- NOTE | 2018-03-07 09:49 | PRG ---
DATE OF SERVICE: 03/07/2018 SUBJECTIVE: The patient seems to be doing reasonably well, been no events overnight. OBJECTIVE: VITAL SIGNS: Temperature is 98, pulse 89, respirations 25, O2 saturation 98%, and blood pressure 140/94. HEENT: Has a bulge to her right sabianist or her skull is absent. NECK: No JVD. Trach in good position. LUNGS: Clear. CARDIAC: S1 and S2. Regular. ABDOMEN: Soft. EXTREMITIES: No edema. LABORATORY DATA: White blood cell count 6.1, hematocrit 32, and platelet count 264. ASSESSMENT: Tracheal colonization with Pseudomonas. RECOMMENDATIONS: I would not recommend treating the tracheostomy colonization with antibiotics. Pulmonary status otherwise stable. Job ID: [id number]
[2018-03-07 22:23] LABS: Bilirubin Negative (Negative); Blood, Urine Negative (Negative); Clarity CLEAR (Clear); Glucose, Urine (Dipstick) Negative (Negative); Leukocyte Trace (Negative); Nitrite Negative (Negative); Protein, Urine (Dipstick) Negative (Neg-Trace); Specific Gravity, Urine 1.011 (1.002-1.036); Urobilinogen 0.2 mg/dL (0.2-1.0); pH, Urine 7.5 (5.0-9.0)
[2018-03-07 22:25] LABS: Bacteria/HPF None Seen HPF (None Seen); Hyaline Casts/LPF 4-6 HYALINE CAST LPF (0-3 Hyaline); Pathc Cast-AUWi Flag 1.01 (0-2.49); Squamous Epithelial 0-3 HPF (0-3)
[2018-03-07 22:26] LABS: Urine Culture Reflex Yes Yes
[2018-03-08] MEDS: cefTRIAXone\\ROCEPHIN 1 GM in Sodium Chloride 0.9% 100 ML IVPB SCH (05:09)
[2018-03-08 05:28] LABS: #Eosinphils 0.1 thou/uL (0.0-0.7); #Lymphocytes 1.3 thou/uL (1.20-3.40); #Monocytes 0.3 thou/uL (0.11-0.59); #Neutrophils 2.4 thou/uL (1.40-6.50); %Basophils 0.6 % (0.0-1.0); %Eosinophils 2.6 % (0.0-10.0); %Lymphocytes 30.5 % (21.0-51.0); %Monocytes 6.5 % (0.0-10.0); %Neutrophils 59.8 % (42.0-75.0); Hemoglobin 10.2 g/dL (12.0-16.0); Mean Corpuscular HGB CONC 32.8 g/dL (32.0-36.0); Mean Corpuscular Hemoglobin 30.3 pg (27.0-31.0); Mean Corpuscular Volume 92.3 fL (78.0-98.0); Mean Platelet Volume 7.8 fL (7.4-10.4); Platelet Count 344 thou/uL (130-400); RBC Distribution Width 13.6 % (11.5-14.5); Red Blood Cell (RBC) Count 3.37 mill/uL (4.20-5.40); White Blood Cell (WBC) Count 4.1 thou/uL (4.8-10.8)
[2018-03-08] MEDS: Sodium Chloride 0.9% 1,000 ML IV SCH ×2 (05:32→21:33)
[2018-03-08 06:17] LABS: Anion Gap 15 mmol/L (10-20); BUN (Urea Nitrogen) 7 mg/dL (7.0-18.7); Calc. Creatinine Clearance 176 mL/min (70-130); Calcium 9.2 mg/dL (7.8-10.44); Carbon Dioxide 22 mmol/L (22-29); Chloride 108 mmol/L (98-107); Estimated GFR-MDRD Greater than 90; Glucose 101 mg/dL (70-105); Potassium 4.4 mmol/L (3.5-5.1); Sodium 141 mmol/L (136-145)
--- NOTE | 2018-03-08 06:59 | PDOC.FM ---
- Subjective Subjective: Pt not as responsive compared to the last few days. She did not respond to my voice. Did not wake up to sternal rub. Unable to obtain further ROS from pt this morning due to mental state. Night nurse reports that she thinks head swelling has gotten better. - Objective MAR Reviewed: Yes Vital Signs & Weight: Vital Signs (12 hours) Temp Pulse Resp Pulse Ox 03/08/18 04:00 98.4 F 03/07/18 20:00 96 03/07/18 19:02 81 22 H 98 Weight Admit Weight 90.265 kg Weight 90.265 kg Most Recent Monitor Data Heart Rate from ECG 74 NIBP 140/83 NIBP BP-Mean 102 Respiration from ECG 20 SpO2 99 I&O: 03/06/18 03/07/18 03/08/18 06:59 06:59 06:59 Intake Total 502 1439 474 Output Total 500 2400 Balance 2 -961 474 Result Diagrams: 03/08/18 04:22 03/08/18 04:22 EKG Reviewed by me: Yes Radiology Reviewed by me: Yes (No new imaging to review) Phys Exam - Physical Examination Constitutional: NAD HEENT: PERRLA, moist MMs Neck: no nodes, supple Respiratory: no rales, no rhonchi, clear to auscultation bilateral Cardiovascular: RRR, no significant murmur, no rub Gastrointestinal: soft, no distention, positive bowel sounds Musculoskeletal: no edema, pulses present Unable to fully assess. Not as alert today Skin: no rash, normal turgor Dx/Plan (1) Hydrocephalus Code(s): G91.9 - HYDROCEPHALUS, UNSPECIFIED Status: Acute (2) UTI (urinary tract infection) Status: Acute Qualifiers: Urinary tract infection type: site unspecified Hematuria presence: without hematuria Qualified Code(s): N39.0 - Urinary tract infection, site not specified (3) DM2 (diabetes mellitus, type 2) Status: Chronic Qualifiers: Diabetes mellitus intermodal dispatcher insulin use: without intermodal dispatcher use Diabetes mellitus complication status: without complication Qualified Code(s): E11.9 - Type 2 diabetes mellitus without complications (4) HTN (hypertension) Code(s): I10 - ESSENTIAL (PRIMARY) HYPERTENSION Status: Chronic (5) Status post craniectomy Code(s): Z98.890 - OTHER SPECIFIED POSTPROCEDURAL STATES Status: Chronic (6) trach and peg Status: Chronic (7) Pseudomonas aeruginosa colonization Code(s): Z22.39 - CARRIER OF OTHER SPECIFIED BACTERIAL DISEASES Status: Acute - Plan Plan: Hydrocephalus - Pt less responsive today. - CT brain w/o contrast read above in noted. Shows increase in encephalomalcia. - Neurosurgery consult for ventricular shunt placement. will follow recs- plan for surgery today - Tube feeds being held for surgery. - Pt home med list states she is on heparin AND warfarin, unknown as to reason; both held for possible shunt placement, Will want to restart as soon as possible after surgery - q2h neuro checks UTI -UA nitrite +, LE- Large, with WBC and urine bacteria -Urine Cx prelim shows E.coli and Pseudomonas. Await sens -Tx with rocephin and levaquin abx s/p peg tube placement -NPO for now pending surgical assessment. Restart tube feeds once cleared s/p tracheostomy w/ recent P. auerginosa colonization -Zosyn Allergy. On levaquin abx for UTI and to cover. -Pulm consulted- Dr. Ratliff/Garcia- follow recs GERD -Protonix 40 mg IV HTN -Continue home meds DM -A1C 4.9 -No need for medication at this time. -accuchecks with meals -Diabetes protocol, mild SSI Addendum - Attending - Attending Attestation Date/Time: 03/08/18 [id number] I personally evaluated the patient and discussed the management with Dr. Ferraro I agree with the History, Examination, Assessment and Plan documented above with any addition or exceptions noted below.Anticipating surgery today feeding and lovenox on hold.
[2018-03-08] MEDS ORDERED: CEFAZOLIN 2 GM/50 ML-DEXTROSE 2 GM in Premix Bag 1 BAG IVPB SCH (07:30)
[2018-03-08] MEDS ORDERED: CEFAZOLIN/Water 2 GM/20 ML SYRINGE SLOW IVP SCH (07:30)
--- NOTE | 2018-03-08 07:37 | PRG ---
DATE OF SERVICE: 03/08/2018 SUBJECTIVE: Brigida will actually follow commands with me when I asked her to hold up two fingers with her right hand. She will open her mouth. She will move her right leg. She is hemiparetic on the left. OBJECTIVE: VITAL SIGNS: On exam, her temperature is 98.4, pulse 74, blood pressure 140/83, O2 saturation 99% on trach collar. HEENT: She has a bulging right baptist area, where the skull has been removed. NECK: No JVD. Trach in good position. LUNGS: Clear. CARDIAC: S1, S2. Regular. ABDOMEN: Soft. EXTREMITIES: No edema. LABORATORY DATA: White blood cell count 4.1, hematocrit 31.1, and platelet count 344. Sodium 141, potassium 4.4, chloride 108, CO2 of 22, BUN 7, creatinine 0.6, glucose 101. ASSESSMENT: 1. Hydrocephalus. 2. Status post hemorrhagic stroke. 3. Status post tracheostomy for prolonged mechanical ventilation. 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 RECOMMENDATION: 1. Again, we will not treat the tracheal colonization with antibiotics. 2. Awaiting further input from Neurosurgery regarding BRASS FINISHER shunt placement. Job ID: [id number]
[2018-03-08] MEDS ORDERED: Fentanyl 100 MCG/2 ML VIAL ONE (10:08)
[2018-03-08] MEDS ORDERED: Lidocaine 1% w/Epinephrine 1:100K 20 ML VIAL ONE (10:16)
[2018-03-08] MEDS: levETIRAcetam In NaCl (Iso-Os) 1,000 MG in Premix Bag 1 BAG IVPB SCH ×2 (13:31→21:35)
[2018-03-08] MEDS: Glycopyrrolate 1 MG TAB PER TUBE SCH ×3 (13:31→21:33)
[2018-03-08] MEDS: Modafinil 100 MG TAB PO SCH ×2 (13:32→21:33)
[2018-03-08] MEDS: Pantoprazole 40 MG VIAL IVP SCH ×2 (13:32→21:35)
[2018-03-08] MEDS ORDERED: PROPOFOL 200 MG/20 ML VIAL ONE (14:37)
[2018-03-08] MEDS ORDERED: Rocuronium Bromide 10 MG/ML (10ML VIAL) ONE (14:37)
[2018-03-08] MEDS ORDERED: Ondansetron PF 4 MG/2 ML Vial ONE (14:37)
[2018-03-08] MEDS ORDERED: CEFAZOLIN 1 GM VIAL SLOW IVP SCH (19:25)
[2018-03-08] MEDS: CEFAZOLIN 2 GM/50 ML-DEXTROSE 2 GM in Premix Bag 1 BAG IVPB SCH (21:34)
[2018-03-09] MEDS: CEFAZOLIN 2 GM/50 ML-DEXTROSE 2 GM in Premix Bag 1 BAG IVPB SCH (04:57)
[2018-03-09] MEDS: Scopolamine 1.5 mg/72 hour Patch TOP SCH (05:01)
[2018-03-09] MEDS: Sodium Chloride 0.9% 1,000 ML IV SCH (05:01)
--- NOTE | 2018-03-09 05:54 | PDOC.FM ---
- Subjective Subjective: NAEO. Patient is post-op day #1 s/p STUDIO MODEL shunt placement. Is more responsive on PE this AM. Localizes pain and following commands but no eye opening or verbal responses. GCS score of 8. - Objective MAR Reviewed: Yes Vital Signs & Weight: Vital Signs (12 hours) Temp Pulse Resp Pulse Ox 03/09/18 01:39 98.7 F 03/08/18 20:00 98.6 F 03/08/18 18:23 89 19 96 Weight Admit Weight 90.265 kg Weight 90.265 kg Most Recent Monitor Data Heart Rate from ECG 88 NIBP 143/91 NIBP BP-Mean 108 Respiration from ECG 19 SpO2 96 I&O: 03/07/18 03/08/18 03/09/18 06:59 06:59 06:59 Intake Total 8850 274 8335 Output Total 2400 2050 Balance -961 474 -320 Result Diagrams: 03/08/18 04:22 03/08/18 04:22 Phys Exam - Physical Examination Constitutional: NAD HEENT: moist MMs Neck: supple, full ROM Respiratory: no wheezing, no rales, no rhonchi, clear to auscultation bilateral Cardiovascular: RRR, no significant murmur Gastrointestinal: positive bowel sounds Musculoskeletal: no edema, pulses present no movement in left extremities Skin: no rash, normal turgor, cap refill <2 seconds Dx/Plan (1) Hydrocephalus Code(s): G91.9 - HYDROCEPHALUS, UNSPECIFIED Status: Acute (2) Pseudomonas aeruginosa colonization Code(s): Z22.39 - CARRIER OF OTHER SPECIFIED BACTERIAL DISEASES Status: Acute (3) GERD (gastroesophageal reflux disease) Code(s): K21.9 - GASTRO-ESOPHAGEAL REFLUX DISEASE WITHOUT ESOPHAGITIS Status: Chronic (4) HTN (hypertension) Code(s): I10 - ESSENTIAL (PRIMARY) HYPERTENSION Status: Chronic (5) ICH (intracerebral hemorrhage) Code(s): I61.9 - NONTRAUMATIC INTRACEREBRAL HEMORRHAGE, UNSPECIFIED Status: Chronic Qualifiers: Intracerebral hemorrhage etiology: nontraumatic Laterality: left (6) Seizure disorder Code(s): G40.909 - EPILEPSY, UNSP, NOT INTRACTABLE, WITHOUT STATUS EPILEPTICUS Status: Chronic (7) Status post craniectomy Code(s): Z98.890 - OTHER SPECIFIED POSTPROCEDURAL STATES Status: Chronic (8) trach and peg Status: Chronic - Plan Plan: Hydrocephalus - CT brain w/o contrast on 03/06 showed increased in encephalomalcia w/ exvacuo dilatation of ventricular system & right-sided midline shift. - Post-op day #1 s/p STUDIO MODEL shunt placement by Dr. Jeong. Cleared for d/c back to LTAC today per Dr. Jeong w/ close follow-up with neurosurgery. CM working on this. Recommend continuing IV cephalosporin for 10 days and holding anticoagulation until Sunday, 03/11. - Tube feeds resumed last night after surgery. Will continue. - Will continue q2h neuro checks UTI -UA nitrite +, LE- Large, with WBC and urine bacteria -Urine Cx shows E.coli and Pseudomonas sensitive to levaquin and rocephin. -Will continue to treat with rocephin and levaquin for another 11 days to complete a 14 day course. s/p peg tube placement - Will continue tube feeds. s/p tracheostomy w/ recent P. auerginosa colonization -Zosyn Allergy. On levaquin abx for UTI which will cover this also. -Pulm consulted- Dr. Ratliff/Garcia- appreciate recs. GERD -Will continue Protonix 40 mg IV. HTN -Will continue home meds. DM -A1C 4.9 -No need for medication at this time. -accuchecks with meals -Diabetes protocol, mild SSI Dispo: Patient cleared for d/c back to LTAC per neurosurgery. Will await clearance from CM for d/c. Possibly later today or tomorrow.
[2018-03-09 06:25] VITALS: TEMP 98.9
--- NOTE | 2018-03-09 08:50 | PRG ---
DATE OF SERVICE: 03/09/2018 Ms. Norwood is in the IMCU, recovering from placement of ventriculoperitoneal shunt for hydrocephalus. There were no events overnight. She has already had a substantial reduction in the pseudomeningocele over the right craniotomy defect. From a neurosurgical perspective, she can transition back to residential facility as early as today. Our Case Management is working on that currently. Our plan will be to re-evaluate her in the clinic setting in 2 to 4-week time frame. Given the rather profound improvement in her scalp, we could also entertain replacement of her bone flap within the next 2 to 4 weeks. I have had this discussion with the family. They understand and that will be the plan moving forward. Job ID: [id number]
[2018-03-09] MEDS ORDERED: cefTRIAXone\\ROCEPHIN 1 GM in Sodium Chloride 0.9% 100 ML IVPB SCH (10:00)
[2018-03-09] MEDS: Pantoprazole 40 MG VIAL IVP SCH (10:30)
[2018-03-09] MEDS: Glycopyrrolate 1 MG TAB PER TUBE SCH (10:30)
[2018-03-09] MEDS: levETIRAcetam In NaCl (Iso-Os) 1,000 MG in Premix Bag 1 BAG IVPB SCH (10:31)
[2018-03-09] MEDS: Modafinil 100 MG TAB PO SCH (10:31)
--- NOTE | 2018-03-09 11:24 | PRG ---
DATE OF SERVICE: 03/09/2018 SUBJECTIVE: Ms. Norwood is postop day #1 following COOKER CHIP shunt placement. She has had significant reduction and actually quite a bit of degree of inversion of her skin flap, which appears to be secondary to improvement in her hydrocephalic situation. She from a neurologic standpoint is essentially as same as she has been. The plan will be to get over back to her LTAC today and will follow up 2 to 3 weeks. Job ID: [id number]
--- NOTE | 2018-03-11 10:05 | PRG ---
DATE OF SERVICE: ADDENDUM: Please see note from Dr. Ferraro's, for which I agree. The patient was seen, evaluated, examined, and discussed with the residents by bedside. This is an unfortunate 48-year-old female with history of an aneurysmal bleed that eventually led to a craniotomy and was at an LTAC, eventually came back with hydrocephalus. A MISSION COMMANDER shunt was placed yesterday. Not very responsive. We will grab right hand today. Otherwise, the vital signs are stable. Chest, clear. Cardiovascular, regular rhythm and unclear what baseline was before this current admission. Does have a UTI. Has grown out multiple bacteria and so we are covering that with Rocephin and Levaquin. Neurosurgery put on Ancef yesterday, but the dose is preventative postoperative and we will make sure, we keep her on Rocephin for the UTI coverage. Otherwise, resuming home medicines and we will discuss with Neurosurgery basically postop plan as I am sure, she is probably going back to an LTAC or something similar. Job ID: [id number]
--- NOTE | 2018-03-11 12:15 | OP ---
DATE OF PROCEDURE: 03/09/2018 MARRIAGE COUNSELOR MINISTER: Cleveland Davila PA-C INDICATION: hydrocephalus. DIAGNOSIS: Hydrocephalus. PROCEDURES: Placement of right ventriculoperitoneal shunt. ANESTHESIA: General. DESCRIPTION OF PROCEDURE: The patient was brought into the operating room and placed under general anesthesia. Her head was turned to the left for exposure of the right occiput. A curvilinear incision was planned along the occiput as well as a straight line incision in the subxiphoid region. Both areas were prepped and draped in the usual sterile fashion. Following a preoperative pause, both incisions were created. A peritoneal catheter was passed from the occipital incision into the xiphoid incision through a trocar. We then placed a rod hole in the occiput and a 6 cm shunt catheter was placed into the ventricle. There was immediate egress of spinal fluid. This was connected to the shunt valve assembly and secured with suture. We then redirected our attention to the peritoneal area where access to the peritoneal space was created and the catheter placed within the peritoneum. Both wounds were irrigated. Hemostasis was maintained throughout. The wounds were then closed in anatomic layers and a pressure dressing was applied. There were no known procedural complications. Job ID: [id number]
--- NOTE | 2018-03-11 14:08 | DIS ---
DATE OF ADMISSION: 03/05/2018 DATE OF DISCHARGE: 03/09/2018 RESIDENT: Nichelle Merida MD ADMITTING ATTENDING: Faisal Jarvis MD. DISCHARGE ATTENDING: Preston Leung MD CONSULTS: 1. Pulmonology, Dr. Garcia Shoemaker. 2. Neurosurgery, Dr. Rodríguez Jeong. PROCEDURES: 1. Brain CT on 03/06/2018, significant for no acute intracranial hemorrhage, but persistent extracranial herniation at the site of craniotomy flap with prominent encephalomalacia with ex vacuo dilatation of the ventricular system. Rightward midline shift is present due to the above described extracranial herniation. Interval temporal evolution of prior intracranial hemorrhage, without evidence of interval acute intracranial hemorrhage. Hypodensity of the right occipital lobe , which has developed. This may relate to edema or developing encephalomalacia. 2. VOCATIONAL TRAINING DIRECTOR shunt placement on 03/08/2018. PRIMARY DIAGNOSES: 1. Acute hydrocephalus. 2. Urinary tract infection. 3. Pseudomonas aeruginosa colonization. SECONDARY DIAGNOSES: 1. Chronic encephalopathy. 2. Chronic anemia. 3. Seizure disorder. 4. Gastroesophageal reflux disease. 5. Hypertension. 6. Type 2 diabetes. 7. History of intracranial hemorrhage status post craniectomy. 8. Status post trach and PEG tube placement. DISCHARGE MEDICATIONS: 1. Robinul 1 mg p.o. per tube t.i.d. 2. DuoNeb 3 mL nebulized q.i.d. 3. Keppra 1000 mg per tube b.i.d. 4. Labetalol 10 mg slow IV push every 6 hours p.r.n. 5. Scopolamine 1.5 mg topically every three days. 6. Modafinil 100 mg p.o. b.i.d. 7. Metoprolol 25 mg p.o. b.i.d. or per tube. 8. Atarax 25 mg p.o. q.i.d. p.r.n. 9. Glucagon 1 mg IM one p.r.n. 10. Dulcolax 10 mg p.o. daily p.r.n. 11. Tylenol suppository 650 mg [place] every 4 hours p.r.n. 12. Benadryl 50 mg IV every 6 hours p.r.n. 13. Protonix 40 mg p.o. daily. 14. Zofran 4 mg IV every 8 hours p.r.n. 15. Dextrose 50%, 12.5 mg IV daily p.r.n. 16. Rocephin 1 g IV daily for 11 days. 17. Levofloxacin 750 mg IV every day for 11 days. 18. Lovenox 60 mg subcu b.i.d. to be resumed on 03/11/2018. DISCONTINUED MEDICATIONS: None. HOSPITAL COURSE: The patient is a 48-year-old female with past medical history significant for a recent craniectomy secondary to a severe right-sided intracranial hemorrhage that occurred on 11/20/2017, who presented to the emergency department from a long-term care facility due to reported increased hydrocephalus seen on a follow-up CT. On arrival to the hospital, the patient was admitted to the [facility] and routine lab work was obtained including a CBC, PT, PTT, INR, CMP, and UA, all of which were normal with the exception of the patient's urinalysis which showed cloudy urine that was positive for nitrites, leukocyte esterase, 2+ bacteria and had greater than 50 white blood cells. The patient's vitals were noted to be within normal limits on presentation as well. She was therefore started on IV fluids with every 2 hour neuro checks. Later that evening, a repeat brain CT was obtained, which did note significant hydrocephalus and encephalomalacia causing blockage of the ventricular system. Neurosurgery, Dr. Rodríguez Jeong was therefore consulted to come and evaluate the patient. The following day, Dr. Jeong's PA, Cleveland Davila came to evaluate the patient and recommended VOCATIONAL TRAINING DIRECTOR shunt placement on day four of hospitalization. The patient's Lovenox and tube feeds were therefore held in anticipation of surgery the morning of 03/08/2018. The patient underwent a VOCATIONAL TRAINING DIRECTOR shunt placement on 03/08/2018 and tolerated the procedure well with no complications. Thus, the following morning, Dr. Jeong came and evaluated the patient and cleared her for discharge back to [facility] and recommended close follow-up within 2-4 weeks of discharge for repeat imaging and evaluation in his office. Regarding the patient's urinary tract infection, the patient was started on IV Levaquin and Rocephin pending culture results and sensitivities. The patient's original culture was positive for E coli, Morganella, and Pseudomonas species, so the patient was continued on IV Levaquin and Rocephin to complete a 14-day course upon discharge. Regarding the patient's tracheostomy Pseudomonas colonization, Dr. Garcia Shoemaker evaluated the patient while in IMCU and was not concerned about the trach Pseudomonas colonization and did not recommend treatment. Thus, since her respiratory status remained stable for the entire duration of her hospitalization, she was cleared for discharge back to the LTAC with regular tracheostomy care recommended. DISPOSITION: Stable. DISCHARGE INSTRUCTIONS: 1. Location: [facility] LT[facility] facility in [place], [place]. 2. Diet: Tube feed diet. 3. Activity: Activity as tolerated. 4. Followup: The patient was discharged to follow up with Dr. Rodríguez eJong within 2-4 weeks of discharge as well as her primary care provider. Job ID: [id number] MTDD
== END 2018-03-09 15:27 | DRG 32 ==
LOC: IMCU/EMU 21:45
PROVIDERS: ADMIT Family Medicine; ATTEND Family Medicine
PROC: 00160J6 Bypass Cerebral Ventricle to Peritoneal Cavity with Synthetic Substitute, Open Approach (ICD-10-PCS; principal; 2018-03-09)
DX: G91.9 Hydrocephalus, unspecified (principal); N39.0 Urinary tract infection, site not specified; G93.40 Encephalopathy, unspecified; J96.11 Chronic respiratory failure with hypoxia; K21.9 Gastro-esophageal reflux disease without esophagitis; I10 Essential (primary) hypertension; E11.9 Type 2 diabetes mellitus without complications; F32.9 Major depressive disorder, single episode, unspecified; B96.5 Pseudomonas (aeruginosa) (mallei) (pseudomallei) as the cause of diseases classified elsewhere; G40.909 Epilepsy, unspecified, not intractable, without status epilepticus; G93.89 Other specified disorders of brain; Z93.1 Gastrostomy status; Z93.0 Tracheostomy status
CPT/HCPCS: 36415; 36416; 70450; 80048; 80053; 81001; 83036; 85025; 85610; 85730; 87070; 87077; 87086; 87186; 87205; 94640; C9113; J0696; J1630; J1953; J1956; J2001; J2405; J2704; J3010; J7050; J7620

== ENCOUNTER 2018-03-27 19:31 | Emergency (ER) | payer MEDICARE, MEDICAID ==
--- NOTE | 2018-03-27 21:56 | CT ---
CT OF THE BRAIN WITHOUT CONTRAST: 03/27/18 INDICATION: EMS transfer from the [facility] with left sided facial droop, right head swelling and midline shift. COMPARISON: CT of the brain dated 03/06/18. FINDINGS: There has been interval placement of a right parietal ventriculoperitoneal shunt catheter projecting into the posterior horn of the right lateral ventricle. There is some improvement in the hydrocephalu s involving the right lateral ventricle. There is persistent herniation of brain material outside of the right frontal parietal craniotomy site. The graft material overlying the herniated brain is simil ar appearing. Encephalomalacia involving portions of the right frontal and right temporal lobe are si milar appearing. The rightward midline shift appears similar appearing. Hypodensity within the right occipital region persists, suspicious for chronic occipital lobe infarct. No acute intracranial hemor rhage is evident. There is an air fluid level within the sphenoid sinus which is stable. Mastoid air cells are clear. The endovascular coil seen within the right aspect of the middle cranial fossa is st able. IMPRESSION: 1. Interval placement of a right parietal ventriculoperitoneal shunt catheter with some improvem ent in the ex vacuo dilatation of the right lateral ventricle. Rightward shift due to herniation of b rain material out of the right sided craniotomy is similar appearing. The synthetic craniotomy flap i s stable. Low density is again seen within the right occipital region suspicious for chronic right oc cipital lobe infarct. 2. No new intracranial infarct or hemorrhage demonstrated. 3. Stable air fluid level within the sphenoid sinus. POS: [facility]
--- NOTE | 2018-03-28 01:50 | CON ---
DATE OF CONSULTATION: This is a 30-minute initial patient evaluation of which greater than 50% of the exam was spent in counseling and coordinating the patient's care. Remainder of the exam was spent in review of the patient's medical records and review of appropriate imaging studies. CHIEF COMPLAINT: Increased cranial defect swelling status post right occipital shunt placement on 03/09/2018. HISTORY OF PRESENT ILLNESS: Ms. Norwood is a 48-year-old female who is a patient of our partner, Dr. Ted Jeong. The patient had a ruptured aneurysm and subsequent right decompressive hemicraniectomy in November 2017 and subsequently due to persistent hydrocephalus, underwent a right occipital ASSOCIATE APPLICATION DEVELOPER shunt placement on 03/09/2018. The patient has been residing at an [facility] facility and according to medical records, and as well as the family, there was a question of increased swelling out of the cranial defect as well as a possibility of left facial droop. They also noted some "abnormalities" found on CT scan. The patient was transferred to [facility] for this. Review of her labs showed that she has a normal white blood cell count and sodium level roughly around 146. She has remained on Keppra. Review of patient's head CT obtained today compared to head CT on 03/06/2018 prior to her shunt placement, no significant improvement in ventricular size. There does appear to be some ex vacuo changes in the right frontal region as well as a slight enlargement of the 5th ventricle fluid collection. Review of all patient's medical records does not know what her initial shunt setting is, but when viewed today it is at 1.0. PHYSICAL EXAMINATION: The patient spontaneously opens her eyes. When I say hello to her, she mouths hello and smiles. She is not moving the left arm, however, and I have not seen her move her left leg, although she does have the left leg crossed over the right leg, indicative of some movement of the left leg. She is able to move the right arm and leg to command. She appears to be comfortable. There is significant swelling at the cranial defect site consistent with 5th ventricle fluid collection. Obviously, there is no bone flap on the right side. Her right occipital ASSOCIATE APPLICATION DEVELOPER shunt incision is healing very well. There are some hetal present. There is no redness. There is no drainage and the cranial incision where her bone flap has been removed is very well healed. IMPRESSION AND DIAGNOSIS: Increase fluid collection at 5th ventricle, status post right occipital shunt placement on 03/09/[address] Jeong. PLAN: I have changed the patient's shunt setting from 1.0 to 0.5 to see if this will help with shunting some of her 5th ventricle fluid. It does not appear that there is any infection as the patient appears to be neurologically intact, back to her neurologic baseline. She has a normal white blood cell count around 10 today in review of her labs from her medical records at [facility]. She does have some tachycardia, however, otherwise she appears to be very stable. At this time, there is no need for neurosurgical intervention nor admission. I have asked that the patient be transferred back to her LTAC facility [facility]. Otherwise, we will update Dr. Jeong and Dr. Cleveland Davila as they plan to follow up with the patient to replace her bone flap in the next several weeks. Please call with any changes in patient's neurologic status, I would like her again to remain on her Keppra. Job ID: [id number]
== END 2018-03-27 23:52 ==
LOC: ERS 19:31
DX: T81.89XA Other complications of procedures, not elsewhere classified, initial encounter (principal); R22.0 Localized swelling, mass and lump, head; E11.9 Type 2 diabetes mellitus without complications; K21.9 Gastro-esophageal reflux disease without esophagitis; I10 Essential (primary) hypertension; J45.909 Unspecified asthma, uncomplicated; F41.9 Anxiety disorder, unspecified; F31.9 Bipolar disorder, unspecified
CPT/HCPCS: 70450

== ENCOUNTER 2018-03-30 20:27 | Inpatient (IN) | payer MEDICARE, MEDICAID ==
[2018-03-30 21:47] LABS: #Lymphocytes 0.9 thou/uL (1.20-3.40); #Monocytes 0.4 thou/uL (0.11-0.59); #Neutrophils 5.7 thou/uL (1.40-6.50); %Basophils 0.3 % (0.0-1.0); %Eosinophils 0.3 % (0.0-10.0); %Lymphocytes 12.3 % (21.0-51.0); %Monocytes 6.3 % (0.0-10.0); %Neutrophils 80.9 % (42.0-75.0); Hemoglobin 10.1 g/dL (12.0-16.0); Mean Corpuscular HGB CONC 30.6 g/dL (32.0-36.0); Mean Corpuscular Hemoglobin 28.8 pg (27.0-31.0); Mean Corpuscular Volume 93.9 fL (78.0-98.0); Mean Platelet Volume 7.6 fL (7.4-10.4); Platelet Count 392 thou/uL (130-400); RBC Distribution Width 13.4 % (11.5-14.5); Red Blood Cell (RBC) Count 3.53 mill/uL (4.20-5.40)
[2018-03-30 21:59] LABS: ALT (SGPT) 57 U/L (8-55); AST (SGOT) 33 U/L (5-34); Albumin 3.6 g/dL (3.5-5.0); Alkaline Phosphatase 163 U/L (40-150); Anion Gap 16 mmol/L (10-20); BUN (Urea Nitrogen) 11 mg/dL (7.0-18.7); Bilirubin, Total 0.2 mg/dL (0.2-1.2); CK (CPK) 35 U/L (29-168); Calc. Creatinine Clearance 0 mL/min (70-130); Calcium 9.7 mg/dL (7.8-10.44); Carbon Dioxide 24 mmol/L (22-29); Chloride 106 mmol/L (98-107); Estimated GFR-MDRD Greater than 90; Globulin 4.5 g/dL (2.4-3.5); Glucose 120 mg/dL (70-105); Potassium 3.6 mmol/L (3.5-5.1); Protein, Total 8.1 g/dL (6.0-8.3); Sodium 142 mmol/L (136-145)
--- NOTE | 2018-03-30 22:06 | RAD ---
CHEST ONE VIEW: 03/30/18 HISTORY: Fever. COMPARISON: Chest radiograph 01/19/18. FINDINGS: There is a right lower lobe air space opacity. Shunt catheter projects over the right hemithorax. Tra cheostomy tube appears to be in good position. IMPRESSION: Right lower lobe air space opacity concerning for infection. POS: [facility]
--- NOTE | 2018-03-30 22:17 | PDOC.EVN ---
Addendum - Attending - Attending Attestation Date/Time: 03/30/18 8643 I personally evaluated the patient and discussed the management with Dr. Chamberlain/ Saroj. I agree with the History, Examination, Assessment and Plan documented in their H &P with any addition or exceptions noted below. 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 She was recently discharged from rehab. She has a trach and is apparently chronically colonized with pseudomonas and had recent stay here 3 weeks ago due to concern for UTI. Her labs show a normal WBC but left shift, PCT pending. Her vitals meet SIRS criteria and is currently febrile. Her CXR is consistent with suspected RLL pneumonia. Lactate normal and other labs currently reassuring. Due to her history and trach status, she will be admitted overnight to the IMCU for close monitoring. Broad spectrum abx and cover for suspected multidrug resistant organisms. Fluid hydrate. Continue supportive care as needed, anticipate need for frequent trach suctioning. I would also anticipate a possible aspiration component of her airspace disease. Obtain Flu swab. No acute neurological issues at this time but will keep her NSGY'n Dr. Jeong informed of her clincal status. Continue therapy services while here. Further mgmt per clinical course. Will consult Pulm in AM as they are also very familiar with this patient.
--- NOTE | 2018-03-30 23:27 | PDOC.FPRHP ---
- History of Present Illness Chief Complaint: inc. work of breathing, fever History of Present Illness: 48 yo F who presents as transfer from [facility] for inc. work of breathing , fever and less responsive. She was sent to [facility] where she was febrile with CT chest showing RLL pneumonia. She received cefepime and Vanc. Per report, she started having localized arm redness with Vanc. It was thought she was having an allergic reaction and so it was discontinued. She was transferred to our ED for better continuity of care. 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 Post surgery course was recently complicated by development of acute hydrocephalus with placement of a UNION ORGANIZER shunt by her neurosurgeon, Dr. Jeong. Since discharge aunt noticed she has had increased work of breathing and seems less responsive. She also has a PMH of ED Course: outside ED: vanc, cefepime 2g x1, fluids? unknown what else tylenol 650 mg - Allergies/Adverse Reactions Allergies Allergy/AdvReac Type Severity Reaction Status Date / Time piperacillin [From Zosyn] Allergy Severe Rash Verified 03/31/18 01:57 tazobactam [From Zosyn] Allergy Severe Rash Verified 03/31/18 01:57 codeine Allergy Verified 03/31/18 01:57 - Home Medications Medication Instructions Recorded Confirmed Type Glycopyrrolate [Robinul] 1 mg PER TUBE TID 12/25/17 03/06/18 History Ipratropium/Albuterol Sulfate 3 ml NEB QID 12/25/17 03/06/18 History [DuoNeb] Labetalol HCl [Normodyne] 10 mg SLOW IVP Q6HR PRN 12/25/17 03/06/18 History levETIRAcetam [Keppra Oral 1,000 mg PER TUBE BID 12/25/17 03/06/18 History Solution] Acetaminophen [Acetaminophen 650 mg MI Q4HR PRN 03/06/18 03/06/18 History Suppository] Bisacodyl [Dulcolax] 10 mg PO DAILY PRN 03/06/18 03/06/18 History Dextrose 50% 12.5 mg IV DAILY PRN 03/06/18 03/06/18 History Glucagon 1 mg IM ONE PRN 03/06/18 03/06/18 History Metoprolol Tartrate [Lopressor] 25 mg PO BID 03/06/18 03/06/18 History Modafinil [Provigil] 100 mg PO BID 03/06/18 03/06/18 History Ondansetron HCl/PF [Ondansetron 4 mg IV Q8HR PRN 03/06/18 03/06/18 History HCl 4 mg/2 ml Syr] Pantoprazole [Protonix] 40 mg PO DAILY 03/06/18 03/06/18 History Scopolamine [Transderm Scop] 1.5 mg TOP Q3D 03/06/18 03/06/18 History diphenhydrAMINE [Benadryl] 50 mg IV Q6HR PRN 03/06/18 03/06/18 History hydrOXYzine [Atarax] 25 mg PO QID PRN 03/06/18 03/06/18 History Enoxaparin Sodium [Lovenox] 60 mg SQ BID #60 syringe 03/09/18 03/06/18 Rx Levofloxacin 750 mg/D5W [Levaquin] 750 mg IVPB Q24HR 11 Days bag 03/09/18 Rx cefTRIAXone\ROCEPHIN [Rocephin] 1 gm IVPB Q24HR 11 Days vial 03/09/18 Rx - History PMHx: Hydrocephalus, pseudomonas aeruginosa colonization, chronic encephalopathy , chronic anemia, seizure disorder, GERD, HTN, M2, Hx of ICH s/p craniectomy PSHx: R decompressive hemicraniectomy and coiling aneurysm for R MCA bifurcation for ICH (2018), trach, peg tube, R lateral malleolar fx s/p ORIF, R UNION ORGANIZER shunt ,cholecystectomy FHx:n/c Social:no t/a/c. In long-term acute care [facility] - Review of Systems ROS unobtainable: due to mental status (ROS obtained from aunt) Respiratory: reports: shortness of breath - Vital signs BP: [112/91] HR: [111] RR: [28] Tmax: [102] Pox: [99]% on [RA] Wt: [90kg] - Physical Exam -Constitutional: tachypneic, at baseline HEENT: other -HEENT: swelling on R aspect of head from surgery PERRL unable to assess EOM, did not respond poor dentition mild periorbital swelling with erythema Neck: trachea midline -Neck: trach collar in place, mild erythema, no purulence or abscess Chest: no lesions Heart: pulses present -Heart: tachycardic Lungs: good air movement -Lungs: tachypneic, mild wheezing, labored breathing Abdomen: soft, bowel sounds present -Musculoskeletal: dec tone in lower extremities -Neurological: paralysis in left upper and lower extremity right upper and lower extremity 5/5 GCS 11, [id number] Heme/Lymphatic: no unusual bruising or bleeding Psychiatric: other (cannot assess as patient is non verbal) FMR H&P: Results - Labs Result Diagrams: 03/31/18 05:20 03/31/18 05:20 Lab results: WBC 7.0 thou/uL (4.8-10.8) 03/30/18 21:15 Hgb 10.1 g/dL (12.0-16.0) L 03/30/18 21:15 Hct 33.1 % (36.0-47.0) L 03/30/18 21:15 MCV 93.9 fL (78.0-98.0) 03/30/18 21:15 Plt Count 392 thou/uL (130-400) 03/30/18 21:15 Neutrophils % 80.9 % (42.0-75.0) H 03/30/18 21:15 Sodium 142 mmol/L (136-145) 03/30/18 21:15 Potassium 3.6 mmol/L (3.5-5.1) 03/30/18 21:15 Chloride 106 mmol/L (98-107) 03/30/18 21:15 Carbon Dioxide 24 mmol/L (22-29) 03/30/18 21:15 BUN 11 mg/dL (7.0-18.7) 03/30/18 21:15 Creatinine 0.59 mg/dL (0.6-1.1) L 03/30/18 21:15 Glucose 120 mg/dL (70-105) H 03/30/18 21:15 Lactic Acid 1.5 mmol/L (0.5-2.2) 03/30/18 21:15 Calcium 9.7 mg/dL (7.8-10.44) 03/30/18 21:15 Total Bilirubin 0.2 mg/dL (0.2-1.2) 03/30/18 21:15 AST 33 U/L (5-34) 03/30/18 21:15 ALT 57 U/L (8-55) H 03/30/18 21:15 Alkaline Phosphatase 163 U/L (40-150) H 03/30/18 21:15 Creatine Kinase 35 U/L (29-168) 03/30/18 21:15 Serum Total Protein 8.1 g/dL (6.0-8.3) 03/30/18 21:15 Albumin 3.6 g/dL (3.5-5.0) 03/30/18 21:15 - EKG Interpretation EKG: sinus tachycardia, no ST elevations - Radiology Interpretation Chest x-ray Status: image reviewed by me, report reviewed by me Additional comment: RLL opacity concerning for infection FMR H&P: A/P - Problem List (1) Sepsis due to pneumonia Current Visit: Yes Status: Acute Code(s): J18.9 - PNEUMONIA, UNSPECIFIED ORGANISM; A41.9 - SEPSIS, UNSPECIFIED ORGANISM (2) Contact dermatitis Current Visit: No Status: Acute Code(s): L25.9 - UNSPECIFIED CONTACT DERMATITIS, UNSPECIFIED CAUSE Qualifiers: Contact dermatitis type: allergic Contact dermatitis trigger: other chemical product Qualified Code(s): L23.5 - Allergic contact dermatitis due to other chemical products Comment: Improving. Likely drug eruption. Meds have been changed. Was admitted previously and went to LTAC. Appears that she was admitted her this time with the dermatitis. Could be a large number of potential culprits. Continue benadryl and topical steroids. (3) Pseudomonas aeruginosa colonization Current Visit: No Status: Acute Code(s): Z22.39 - CARRIER OF OTHER SPECIFIED BACTERIAL DISEASES (4) DM2 (diabetes mellitus, type 2) Current Visit: No Status: Chronic Qualifiers: Diabetes mellitus terminal make up operator insulin use: without long-term use Diabetes mellitus complication status: without complication Qualified Code(s): E11.9 - Type 2 diabetes mellitus without complications (5) GERD (gastroesophageal reflux disease) Current Visit: No Status: Chronic Code(s): K21.9 - GASTRO-ESOPHAGEAL REFLUX DISEASE WITHOUT ESOPHAGITIS (6) HTN (hypertension) Current Visit: No Status: Chronic Code(s): I10 - ESSENTIAL (PRIMARY) HYPERTENSION (7) Seizure disorder Current Visit: No Status: Chronic Code(s): G40.909 - EPILEPSY, UNSP, NOT INTRACTABLE, WITHOUT STATUS EPILEPTICUS (8) Status post craniectomy Current Visit: No Status: Chronic Code(s): Z98.890 - OTHER SPECIFIED POSTPROCEDURAL STATES (9) trach and peg Current Visit: No Status: Chronic - Plan 48 yo F with trach collar & peg tube with hx of pseudomnoas colonization admitted for sepsis 2/2 to pneumonia Sepsis 2/2 pneumonia -tachycardic, tachypneic, febrile in ED; CXR shows RLL infiltrate -hospital acquired vs. community acquired vs aspiration pneumonia -s/p 2g cefepime & partial Vanc at outside ED -Procal negative and WBC nml -Due to patient's complicated medical hx and fact that they received IV antibiotics within 90 days, patient is considered high risk for MRSA. Since cannot tolerate vanc will start on linezolid, with consideration for ID consult in AM. Due to hx of pseudomonas colonization, will add cefepime & levaquin for double coverage. -Flu swab, fungal culture, sputum culture pending -PRN O2, duonebs x1 & PRN -Unsure [facility]. Will give 1L, reasses. mIVF after that -Tylenol PRN for fever -Admit to IMCU, pulm consult in AM Hx of craniectomy with UNION ORGANIZER shunt placement -Dr. Jeong is her neurosurgeon -Neurologically at baseline -Will give courtesy call HTN -home metoprolol GERD -home pantoprazole Contact dermatitis -around trach collar -monitor, consult RT to see if can use moisturizing cream and keep area clean & dry Seizure disorder -resume home keppra Hx of RUE DVT -discussed with pharmacy lovenox ppx tx dose 1.5mg/kg -resume lovenox 60mg BID DM2 -A1c -sliding scale Peg Tube -consulted supply tech dvt ppx: lovenox gi ppx: home pantoprazole dispo: stable, long-term prognosis remains guarded; >[address] Kline FMR H&P: Upper Level - Pertinent history Pt is a 48 yo F presented From [facility] ED in [place], [place]. She was taken to ED after her LTAC discovered a fever. She was worked up in the ED there and then transferred to [facility] ED for continuity of care as she has recent extended stays, most notably a ruptured brain aneurysm in Dec with several follow up surgeries. At [facility] today, it is reported she had B/L PNA and was given 2g Cefepime and Vancomycin. The vancomycin was stopped after she developed a local erythema surrounding the IV site. I am unaware of any additional treatments patient may have received. Overall Ms Norwood has a PMH of right decompressive hemicraniectomy with Dr. 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 On permanent trach collar and PEG tube. Aunt and daughter are at bedside; both state that patient appears to be at baseline mental status. In ED pt tachycardic at 113, respirations 28 on O2 maintaining saturations, febrile. - Pertinent findings CT chest from OSH shows b/l upper airway disease as well as RLL lobar consolidation c/w PNA. CT abdomen/pelvis unremarkable for acute pathology. - Plan Date/Time: 03/30/182326 I, Bernardo Kyle, have evaluated this patient and agree with findings/plan as outlined by bakery pastry internship resident. Pertinent changes/additions are listed here. 1.Sepsis 2/2 PNA - Will re-order blood work and trend procal. Obtain painting cultures. Left shift, but normal WBC and procal. Continue Cefepime, and start Linezolid, and Levaquin as she is at high risk for MDR organisms. Hx/o systemic adverse rxn to Pip/Tazo and recent skin rxn to vancomycin today in outside ED. Did receive CT chest/abd/pelvis today with RLL infiltrate and b/l upper lobe airspace disease. Does have a history of trach colonization of pseudomonas and will double cover initially and appreciate pulmonology recommendations. Noted tx not recommended 1 month ago for pseudomonas colonization, however cannot r/o possibility PNA is not pseudomonas. 2.S/p ruptured aneurism and craniotomy pt now at baseline aphasic and responds to commands - without any known acute issues. Will notify Dr Talley neurosurgery team as needed. 3.PEG tube in place will resume her home diet 4.GERD No acute issues 5.HTN Controlled 6.DM2- Will place on SSI. Unsure on home medications 7. Hx/o DVT - was on anticoagulation, but discontinued for shunt placement. Unsure if that was eventually restarted. Will hold tonight. Addendum - Attending - Attending Attestation Date/Time: 03/31/18 8300 I personally evaluated the patient and discussed the management with Dr. Chamberlain/ Saroj. I agree with the History, Examination, Assessment and Plan documented above with any addition or exceptions noted below. See event noted dated on 03/30/18 by me for further details.
[2018-03-31] MEDS ORDERED: Acetaminophen 650 MG Suppository ONE (00:21)
[2018-03-31 00:47] LABS: Bilirubin Negative (Negative); Blood, Urine Negative (Negative); Clarity CLEAR (Clear); Glucose, Urine (Dipstick) Negative (Negative); Leukocyte Negative (Negative); Nitrite Negative (Negative); Protein, Urine (Dipstick) 30 mg/dL (Neg-Trace); Specific Gravity, Urine 1.025 (1.002-1.036); Urobilinogen 0.2 mg/dL (0.2-1.0)
[2018-03-31 00:50] LABS: Bacteria/HPF None Seen HPF (None Seen); Hyaline Casts/LPF 7-10 HYALINE CAST LPF (0-3 Hyaline); Pathc Cast-AUWi Flag 0.87 (0-2.49); RBC/HPF 0-3 HPF (0-3); WBC/HPF 0-3 HPF (0-3)
[2018-03-31] MEDS ORDERED: Ondansetron PF 4 MG/2 ML Vial IVP PRN (01:27)
[2018-03-31] MEDS ORDERED: Sodium Chloride 0.9% 1,000 ML IV SCH ×2 (01:27→02:00)
[2018-03-31] MEDS ORDERED: Ondansetron ODT 4 MG TAB SL PRN (01:27)
[2018-03-31] MEDS ORDERED: Acetaminophen 325 MG TAB PO PRN (01:27)
[2018-03-31] MEDS ORDERED: Acetaminophen 325 MG TAB PO SCH (02:09)
[2018-03-31] MEDS: Lactated Ringer's 1,000 ML IV SCH ×3 (02:17→16:23)
[2018-03-31] MEDS: Cefepime 2 GM in Sodium Chloride 0.9% 100 ML IVPB SCH ×3 (02:26→18:04)
[2018-03-31] MEDS ORDERED: Dextrose 5% in Water 1,000 ML IV PRN ×2 (02:48→02:57)
[2018-03-31] MEDS ORDERED: Insulin Regular 300 UNITS/3 ML VIAL SC PRN (02:48)
[2018-03-31] MEDS ORDERED: Dextrose 50% Abboject 50 ML SYRINGE SLOW IVP PRN ×2 (02:48→02:57)
[2018-03-31] MEDS: Linezolid 600 MG in Premix Bag 1 BAG IVPB SCH ×2 (03:33→16:20)
[2018-03-31 05:41] LABS: #Lymphocytes 1.4 thou/uL (1.20-3.40); #Monocytes 0.7 thou/uL (0.11-0.59); %Basophils 0.1 % (0.0-1.0); %Eosinophils 0.3 % (0.0-10.0); %Lymphocytes 20.2 % (21.0-51.0); %Monocytes 9.4 % (0.0-10.0); %Neutrophils 70.1 % (42.0-75.0); Hemoglobin 9.2 g/dL (12.0-16.0); Mean Corpuscular HGB CONC 31.1 g/dL (32.0-36.0); Mean Corpuscular Volume 93.4 fL (78.0-98.0); Mean Platelet Volume 7.5 fL (7.4-10.4); Platelet Count 364 thou/uL (130-400); RBC Distribution Width 13.4 % (11.5-14.5); Red Blood Cell (RBC) Count 3.18 mill/uL (4.20-5.40); White Blood Cell (WBC) Count 7.1 thou/uL (4.8-10.8)
[2018-03-31 05:46] LABS: Hemoglobin A1c 4.9 % (4.0-6.0)
--- NOTE | 2018-03-31 05:56 | PDOC.FPRHP ---
- Allergies/Adverse Reactions Allergies Allergy/AdvReac Type Severity Reaction Status Date / Time piperacillin [From Zosyn] Allergy Severe Rash Verified 03/31/18 01:57 tazobactam [From Zosyn] Allergy Severe Rash Verified 03/31/18 01:57 codeine Allergy Verified 03/31/18 01:57 - Home Medications Medication Instructions Recorded Confirmed Type Glycopyrrolate [Robinul] 1 mg PER TUBE TID 12/25/17 03/06/18 History Ipratropium/Albuterol Sulfate 3 ml NEB QID 12/25/17 03/06/18 History [DuoNeb] Labetalol HCl [Normodyne] 10 mg SLOW IVP Q6HR PRN 12/25/17 03/06/18 History levETIRAcetam [Keppra Oral 1,000 mg PER TUBE BID 12/25/17 03/06/18 History Solution] Acetaminophen [Acetaminophen 650 mg NC Q4HR PRN 03/06/18 03/06/18 History Suppository] Bisacodyl [Dulcolax] 10 mg PO DAILY PRN 03/06/18 03/06/18 History Dextrose 50% 12.5 mg IV DAILY PRN 03/06/18 03/06/18 History Glucagon 1 mg IM ONE PRN 03/06/18 03/06/18 History Metoprolol Tartrate [Lopressor] 25 mg PO BID 03/06/18 03/06/18 History Modafinil [Provigil] 100 mg PO BID 03/06/18 03/06/18 History Ondansetron HCl/PF [Ondansetron 4 mg IV Q8HR PRN 03/06/18 03/06/18 History HCl 4 mg/2 ml Syr] Pantoprazole [Protonix] 40 mg PO DAILY 03/06/18 03/06/18 History Scopolamine [Transderm Scop] 1.5 mg TOP Q3D 03/06/18 03/06/18 History diphenhydrAMINE [Benadryl] 50 mg IV Q6HR PRN 03/06/18 03/06/18 History hydrOXYzine [Atarax] 25 mg PO QID PRN 03/06/18 03/06/18 History Enoxaparin Sodium [Lovenox] 60 mg SQ BID #60 syringe 03/09/18 03/06/18 Rx Levofloxacin 750 mg/D5W [Levaquin] 750 mg IVPB Q24HR 11 Days bag 03/09/18 Rx cefTRIAXone\ROCEPHIN [Rocephin] 1 gm IVPB Q24HR 11 Days vial 03/09/18 Rx - History PMHx: PSHx: FHx: Social: - Vital signs BP: [] HR: [] RR: [] Tmax: [] Pox: []% on [] Wt: [] FMR H&P: Results - Labs Result Diagrams: 03/31/18 05:20 03/31/18 05:20 Lab results: WBC 7.1 thou/uL (4.8-10.8) 03/31/18 05:20 Hgb 9.2 g/dL (12.0-16.0) L 03/31/18 05:20 Hct 29.7 % (36.0-47.0) L 03/31/18 05:20 MCV 93.4 fL (78.0-98.0) 03/31/18 05:20 Plt Count 364 thou/uL (130-400) 03/31/18 05:20 Neutrophils % 70.1 % (42.0-75.0) 03/31/18 05:20 Sodium 142 mmol/L (136-145) 03/30/18 21:15 Potassium 3.6 mmol/L (3.5-5.1) 03/30/18 21:15 Chloride 106 mmol/L (98-107) 03/30/18 21:15 Carbon Dioxide 24 mmol/L (22-29) 03/30/18 21:15 BUN 11 mg/dL (7.0-18.7) 03/30/18 21:15 Creatinine 0.59 mg/dL (0.6-1.1) L 03/30/18 21:15 Glucose 120 mg/dL (70-105) H 03/30/18 21:15 Lactic Acid 1.5 mmol/L (0.5-2.2) 03/30/18 21:15 Calcium 9.7 mg/dL (7.8-10.44) 03/30/18 21:15 Total Bilirubin 0.2 mg/dL (0.2-1.2) 03/30/18 21:15 AST 33 U/L (5-34) 03/30/18 21:15 ALT 57 U/L (8-55) H 03/30/18 21:15 Alkaline Phosphatase 163 U/L (40-150) H 03/30/18 21:15 Creatine Kinase 35 U/L (29-168) 03/30/18 21:15 Serum Total Protein 8.1 g/dL (6.0-8.3) 03/30/18 21:15 Albumin 3.6 g/dL (3.5-5.0) 03/30/18 21:15 Urine Ketones Negative mg/dL (Negative) 03/31/18 00:38 Urine Blood Negative (Negative) 03/31/18 00:38 Urine Nitrite Negative (Negative) 03/31/18 00:38 Ur Leukocyte Esterase Negative (Negative) 03/31/18 00:38 Urine RBC 0-3 HPF (0-3) 03/31/18 00:38 Urine WBC 0-3 HPF (0-3) 03/31/18 00:38 Ur Squamous Epith Cells 4-6 HPF (0-3) H 03/31/18 00:38 Urine Bacteria None Seen HPF (None Seen) 03/31/18 00:38 FMR H&P: A/P - Plan 48 yo F with trach collar & peg tube with hx of pseudomnoas colonization admitted for sepsis 2/2 to pneumonia Sepsis 2/2 pneumonia -tachycardic, tachypneic, febrile in ED; CXR shows RLL infiltrate -hospital acquired vs. community acquired vs aspiration pneumonia -s/p 2g cefepime & partial Vanc at outside ED -Procal negative and WBC nml -Patient is considered high risk for MRSA. Since cannot tolerate vanc will start on linezolid - Due to hx of pseudomonas colonization, will add cefepime & levaquin for double coverage. -ID consult in AM -Flu swab, fungal culture, sputum culture pending -PRN O2, duonebs x1 & PRN -s/p 1 L, now mIVF -Tylenol PRN for fever -Admitted to IMCU, -pulm consult this AM Hx of craniectomy with CREATIVE PERFUMER shunt placement -Dr. Jeong is her neurosurgeon -Neurologically at baseline -Will give courtesy call HTN -home metoprolol GERD -home pantoprazole Contact dermatitis -around trach collar -monitor, consult RT to see if can use moisturizing cream and keep area clean & dry Seizure disorder -resume home keppra Hx of RUE DVT -discussed with pharmacy lovenox ppx tx dose 1.5mg/kg -resume lovenox 60mg BID DM2 -A1c -sliding scale Peg Tube -consulted dental secretary dvt ppx: lovenox gi ppx: home pantoprazole dispo: stable, half-way prognosis remains guarded; >2 midnights FMR H&P: Upper Level - Plan Date/Time: 03/31/18 0556 I, [], have evaluated this patient and agree with findings/plan as outlined by international account representative resident. Pertinent changes/additions are listed here.
[2018-03-31 05:57] LABS: Anion Gap 14 mmol/L (10-20); BUN (Urea Nitrogen) 10 mg/dL (7.0-18.7); Calc. Creatinine Clearance 190 mL/min (70-130); Calcium 8.9 mg/dL (7.8-10.44); Carbon Dioxide 23 mmol/L (22-29); Chloride 106 mmol/L (98-107); Estimated GFR-MDRD Greater than 90; Glucose 132 mg/dL (70-105); Potassium 3.3 mmol/L (3.5-5.1); Sodium 140 mmol/L (136-145)
--- NOTE | 2018-03-31 06:09 | PDOC.FM ---
- Subjective Subjective: Patient has trach and unable to communicate verbally. Sleeping this AM. - Objective Vital Signs & Weight: Vital Signs (12 hours) Temp Pulse Resp Pulse Ox 03/31/18 04:00 99.6 F 03/31/18 02:09 103 H 20 100 03/31/18 01:30 100 03/31/18 01:05 102.2 F H 22 H Weight Weight 85.757 kg Most Recent Monitor Data Heart Rate from ECG 96 NIBP 113/81 NIBP BP-Mean 91 Respiration from ECG 23 SpO2 100 Result Diagrams: 03/31/18 05:20 03/31/18 05:20 EKG Reviewed by me: No Phys Exam - Physical Examination Constitutional: NAD Sleeping on exam. Able to follow simple commands. HEENT: moist MMs, oral pharynx no lesions trach in place Respiratory: no wheezing, clear to auscultation bilateral difficult exam due to patient's habitus Cardiovascular: RRR, no significant murmur Gastrointestinal: soft, non-tender, no distention, positive bowel sounds Musculoskeletal: no edema, pulses present Able to follow simple commands, wiggles toes of both lower extremities Skin: normal turgor, cap refill <2 seconds Dx/Plan (1) Sepsis due to pneumonia Code(s): J18.9 - PNEUMONIA, UNSPECIFIED ORGANISM; A41.9 - SEPSIS, UNSPECIFIED ORGANISM Status: Acute (2) Contact dermatitis Code(s): L25.9 - UNSPECIFIED CONTACT DERMATITIS, UNSPECIFIED CAUSE Status: Acute Qualifiers: Contact dermatitis type: allergic Contact dermatitis trigger: other chemical product Qualified Code(s): L23.5 - Allergic contact dermatitis due to other chemical products (3) Hydrocephalus Code(s): G91.9 - HYDROCEPHALUS, UNSPECIFIED Status: Acute (4) Pseudomonas aeruginosa colonization Code(s): Z22.39 - CARRIER OF OTHER SPECIFIED BACTERIAL DISEASES Status: Chronic (5) DM2 (diabetes mellitus, type 2) Status: Chronic Qualifiers: Diabetes mellitus longterm insulin use: without longterm use Diabetes mellitus complication status: without complication Qualified Code(s): E11.9 - Type 2 diabetes mellitus without complications (6) Encephalopathy Code(s): G93.40 - ENCEPHALOPATHY, UNSPECIFIED Status: Chronic (7) GERD (gastroesophageal reflux disease) Code(s): K21.9 - GASTRO-ESOPHAGEAL REFLUX DISEASE WITHOUT ESOPHAGITIS Status: Chronic (8) Seizure disorder Code(s): G40.909 - EPILEPSY, UNSP, NOT INTRACTABLE, WITHOUT STATUS EPILEPTICUS Status: Chronic (9) trach and peg Status: Chronic (10) Chronic anemia Code(s): D64.9 - ANEMIA, UNSPECIFIED Status: Chronic - Plan Plan: 48 yo F with trach collar & peg tube with hx of pseudomnoas colonization admitted for sepsis 2/2 to pneumonia Sepsis 2/2 pneumonia Tachycardic, tachypneic, febrile in ED; CXR shows RLL infiltrate; CT outside facility showed possible pneumonia - Hospital acquired vs. community acquired vs aspiration pneumonia - s/p 2g cefepime & partial Vanc at outside ED - Procal negative, and WBC nml - Patient is considered high risk for MRSA. Since cannot tolerate vanc will start on linezolid - Due to hx of pseudomonas colonization, will add cefepime & levaquin for double coverage. - ID consult in AM, appreciate recommendations - Blood cx, Flu swab, fungal culture, sputum culture pending - PRN O2, duonebs x1 & PRN - S/p 1 L, now mIVF - Tylenol PRN for fever - Admitted to IMCU - Pulm consult this AM, appreciate recommendations Hx of craniectomy with SUPERVISOR [employer] shunt placement - Dr. Jeong is her neurosurgeon - Neurologically at baseline - Will give courtesy call Chronic Anemia -9 this AM, continue to monitor HTN - Hold home metoprolol for now as blood pressures low GERD - Home pantoprazole Contact dermatitis - Around trach collar - Monitor, consult RT to see if can use moisturizing cream and keep area clean & dry Seizure disorder -resume home keppra Hx of RUE DVT - Discussed with pharmacy lovenox ppx tx dose 1.5mg/kg - Resume lovenox 60mg BID DM2 -A1c -sliding scale Peg Tube -consulted noodle press operator dvt ppx: lovenox gi ppx: home pantoprazole dispo: stable, longterm prognosis remains guarded; >2 midnights Code status: Full Addendum - Attending - Attending Attestation Date/Time: 03/31/18 2566 I personally evaluated the patient and discussed the management with Dr. German. I agree with the History, Examination, Assessment and Plan documented above with any addition or exceptions noted below. Patient here with fever and increased respiratory effort with concerns for pneumonia. PCT reassuring for not severe bacterial infection in the lower resp tract. She is high risk for MDR organisms and MRSA and so is currently on abx to cover for those. She is also colonized with pseudomonas and has risk for aspiration. ID consult appreciated. Pulm consult made as well. Labs continue to be stable. Work on obtaining Influenza results as this could also cause her presentation. No acute neuro changes. Continue to monitor in IMCU. Vitals stable.
[2018-03-31] MEDS ORDERED: Enoxaparin Sodium 40 MG/0.4 ML SYRINGE SC SCH (09:00)
[2018-03-31] MEDS ORDERED: Prevnar 13-Val Conj/PF 0.5 ML SYRINGE IM ONE (09:00)
[2018-03-31] MEDS: Metoprolol Tartrate 25 MG TAB PO SCH ×2 (10:27→20:17)
[2018-03-31] MEDS: Enoxaparin Sodium 60 MG/0.6 ML SYRINGE SC SCH ×2 (10:27→20:17)
[2018-03-31] MEDS: levETIRAcetam 500 mg/5 ml Oral Solution PER TUBE SCH ×2 (10:27→20:17)
[2018-03-31] MEDS: Pantoprazole 40 MG GRANULES PACKET PER TUBE SCH (10:28)
[2018-03-31] MEDS: Scopolamine 1.5 mg/72 hour Patch TOP SCH (10:29)
--- NOTE | 2018-03-31 11:39 | CON ---
DATE OF CONSULTATION: CONSULTING PHYSICIAN: [facility]. REASON FOR CONSULTATION: Pneumonia. HISTORY OF PRESENT ILLNESS: Brigida's case is well known to me. She is a 48-year-old female, who has been transferred back from the [facility] in the [place]. She was febrile. She has a right lower lobe pneumonia on CT and chest x-ray. She has a history of an intracranial hemorrhage requiring craniectomy several months ago. She has been in and out of the hospital several times since she has an indwelling tracheostomy for failure to wean from mechanical ventilation. PAST MEDICAL HISTORY: 1. Hypertension. 2. Gastroesophageal reflux disease. 3. Asthma. 4. Tracheostomy placement. 5. Cholecystectomy. 6. Craniotomy - still has missing portions in skull. PSYCHIATRIC HISTORY: Bipolar disorder, anxiety, and depression. SOCIAL HISTORY: Nonsmoker. Does not consume alcohol. ALLERGIES: CODEINE. MEDICATIONS: Her medications from group home are listed in the chart include; 1. Keppra. 2. Scopolamine. 3. Atarax. 4. Benadryl. 5. Rocephin. 6. Protonix. 7. Provigil. 8. Lopressor. 9. Levaquin. 10. DuoNeb. 11. Lovenox. 12. Glucagon. 13. Enoxaparin. 14. Acetaminophen. CURRENT INPATIENT MEDICATIONS: Include; 1. Acetaminophen. 2. Cefepime. 3. Levaquin. 4. Linezolid and several others. REVIEW OF SYSTEMS: Cannot be obtained from the patient. PHYSICAL EXAMINATION: VITAL SIGNS: Temperature as high as 102.2 and currently 99.6, pulse 92, blood pressure 113/81, and O2 saturation 100%. HEENT: Remarkable for herniation of brain through the hole in the skull on the right. NECK: Trach in place, appears clean. LUNGS: Coarse rhonchi. CARDIOVASCULAR: S1 and S2. Regular. ABDOMEN: Soft and nontender. EXTREMITIES: Edematous. LABORATORY DATA: White blood cell count 7.1, hematocrit 29.7, and platelet count 364. Sodium 140, potassium 3.3, chloride 106, CO2 of 23, BUN 10, creatinine 0.5, and glucose 132. X-ray shows right lower lobe infiltrate. ASSESSMENT: 1. Right lower lobe healthcare acquired pneumonia. 2. Other medical problems as listed above. PLAN: I have reviewed the orders and agree with current treatment with cefepime, Levaquin, and linezolid. She is not in need of mechanical ventilation at this time. Unfortunately, her continued need for tracheostomy will put her at very high risk for development of pneumonia in the future. Job ID: [id number]
[2018-03-31] MEDS ORDERED: Cefepime 2 GM in Sodium Chloride 0.9% 100 ML IVPB SCH (14:00)
--- NOTE | 2018-03-31 14:24 | PDOC.EVN ---
Event Note - Event Note Event Note: Went to check on Patient. She was resting, satting 100% on 6L by trach collar. On physical exam, lungs had decreased air movement diffusely. Discussed with nurse to give PRN duoneb.
[2018-03-31] MEDS: Acetaminophen 325 MG TAB PO PRN ×2 (14:38→20:18)
--- NOTE | 2018-03-31 15:26 | PDOC.EVN ---
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 Pt currently on 60 mg lovenox BID. Ordered RUE ultrasound, and anti-10a level. If RUE sono shows DVT and anti-10a is not within therapeutic window, will increase dosing to therapeutic range. If sono negative, dose can be decreased to daily prophylactic regimen.
--- NOTE | 2018-03-31 15:38 | CON ---
DATE OF CONSULTATION: 03/31/2018 REASON FOR CONSULTATION: Possible pneumonia. 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 The patient required emergent hemicraniectomy for decompression. When I saw her, she had developed a skin reaction, which was felt to be due to phenytoin hypersensitivity reaction. This time, the patient was brought in from [facility] in the [place] because of fever, tachypnea, decreased responsiveness, and abnormal chest x-ray. She was given cefepime and vancomycin. There was some concern with possible allergic reaction to vancomycin. Initial vital signs with a BP 112/91, heart rate 111, temperature 102, and O2 saturation 99% on room air. She had the cranial defect from the bulging. I believe she still does not have a bone flap or any prosthesis at that site. She has a tracheostomy in the midline and also a gastrostomy tube. She has a HOME CARE MANAGER RN shunt placed and incisions are still in place in the epigastric area for the abdominal end of the HOME CARE MANAGER RN shunt. The neuro exam was as seen upon discharge from this hospital previously with a left hemiplegia, severe receptive and expressive aphasia. Initial lab results included white cell count 7.0, hemoglobin 10, platelets 392 with 80% neutrophils. Sodium 142, creatinine 0.59 with ALT 57, alkaline phosphatase 163 with albumin 3.6 and globulin 4.5. Procalcitonin was 0.19. Urinalysis with 0-3 wbc's. Chest x-ray showed dense consolidation in the right base. This was not present in the last chest x-rays from this hospital in January 2018. The patient has been started on cefepime and linezolid as well as levofloxacin. Currently, she appears to be awake. She does not interact with the examiner. She will move the right side intermittently, but does not follow commands. PAST MEDICAL HISTORY: Aneurysm associated intracranial bleed with intracranial hematoma which required craniectomy, Dilantin-associated hypersensitivity reaction, HOME CARE MANAGER RN shunt placement, seizures, tracheostomy, gastrostomy tube placement, malleolar fracture in the past, cholecystectomy. FAMILY HISTORY: Noncontributory. SOCIAL HISTORY: She is a former smoker. ALLERGIES: DILANTIN WITH HYPERSENSITIVITY REACTION AND DIFFUSE ERYTHRODERMA IN THE RECENT PAST. CURRENT MEDICATIONS: Include: 1. Cefepime. 2. Enoxaparin. 3. Glucagon. 4. Keppra. 5. Levofloxacin. 6. Linezolid. 7. Metoprolol. 8. Pantoprazole. 9. Scopolamine. PHYSICAL EXAMINATION: VITAL SIGNS: T-max 102.2, blood pressure 154/89, pulse 106, respirations 28-30 , O2 saturation 99%. SKIN: Shows the slight amount of erythema in the left gluteal region. The tracheostomy exit site appears normal. The gastrostomy appears normal. The HOME CARE MANAGER RN shunt abdominal and with hetal in place at the incision. No erythema, no drainage, no dehiscence. She is voiding in the diaper. The skull incision appears dry without inflammatory changes. The patient has a peripheral IV access in the right upper extremity. No other skin lesions. HEENT: No lymphadenopathy. There are conjugate eye movements. The pupils are 2 mm and reactive. Sclerae are white. Conjunctivae normal. Oral cavity with quite a few teeth in place in decent shape. Oral mucosa is moist with no thrush. No other lesions. NECK: Stiff neck to all directions. LUNGS: With coarse breath sounds. Diminished breath sounds in the right base. HEART: S1 and S2. Regular rate. No S3 or S4. No murmurs. ABDOMEN: Soft, not distended or tender. No guarding. No bladder distention. NEUROLOGIC: She has a left hemiplegia with hypertonicity. The right side appears with normal movements. No clonus on the right side. The plantar responses are downgoing or flexor in the right side as well. She appears to be awake, but does not interact with the examiner. Does not establish eye contact. Does not follow commands. LABORATORY DATA: Urinalysis with 0-3 WBCs, 30 protein. White cell count now is 7.1, hemoglobin 9.2, MCV 93, platelets 364 with 70% neutrophils. Sodium 140, potassium 3.3, and creatinine 0.5. Microbiology with 2 sets of blood cultures thus far no growth and influenza nucleic acid amplification negative. IMAGING STUDIES: As noted above with a right-sided dense infiltrate in the right base. ASSESSMENT: 1. Prior intracranial hemorrhage due to aneurysm bleed which required a craniectomy and HOME CARE MANAGER RN shunt placement. 2. Tracheostomy and gastrostomy tube feedings. 3. Previous Dilantin hypersensitivity, currently on Keppra. 4. Tachypnea with fever and abnormal chest x-ray suggestive of an infiltrate in the right lung base. DISCUSSION: Differential diagnosis includes aspiration pneumonia. This may be associated or not with mucus plugging and atelectasis, developing right pleural effusion is to be considered, empyema is a possible development going forward, which might have to be worked up depending on clinical response. Typical organisms associated with this include Gram negatives. Anaerobes have been noted to be less and less frequent in this kind of process. MRSA is a possibility. Discontinue levofloxacin and continue the remainder aspects of her therapy. May resume a vancomycin since I believe that what she had was red man syndrome, which is not a true hypersensitivity reaction. Duration of therapy for those processes when they are not complicated, the usually is relatively short, no more than 7 days usually required. She does have an abnormal liver function tests. The other concern is that with thromboembolism and pulmonary embolism, we will go ahead and evaluate a CT angio to rule out a possibility since she is at high risk for such complication. Job ID: [id number] MTDD
--- NOTE | 2018-03-31 16:21 | CT ---
CTA CHEST WITH CONTRAST: History: Hemiaplasia, tachypnea. Abnormal chest x-ray. Comparison: Radiograph prior day. FINDINGS: CT angiogram of the chest performed after the intravenous administration of contrast. 3D rendering is provided. Tracheostomy is in good position. No proximal or pulmonary artery defect. Celiac trunk as well as mesenteric arteries are patent. No aneurysmal dilatation of the aorta. Limited evaluation of the upper abdomen demonstrates some stra nding in the right upper quadrant of the abdomen with skin surgical clips. Mild hepatic changes in the right upper lobe. Mild right basilar consolidation. No acute osseous abnormality. IMPRESSION: 1. No pulmonary embolism. 2. Mild right lower lobe consolidation and mild atelectatic changes right upper lobe. POS: NAVEED
[2018-03-31] MEDS ORDERED: ISOVUE-370 76%-LOCM 1 ML ONE (16:57)
--- NOTE | 2018-03-31 18:20 | ULT ---
RIGHT UPPER EXTREMITY ARTERIAL ULTRASOUND WITH DOPPLER: History: Right upper extremity swelling. Evaluate for DVT. Comparison: None. Technique: Grayscale, color flow, doppler imaging and spectral waveform analysis was performed of the right extremity venous system. FINDINGS: Evaluation is limited by restraint, bandaging and tracheostomy. There is compressibility and flow in the internal jugular vein. Subclavian vein is patent. Compressibility and flow in the axillary vein, basilic vein, cephalic vein, radial vein, ulnar vein a nd brachial vein. IMPRESSION: No evidence of thrombus in the visualized right upper extremity venous system. POS: PPP
[2018-04-01] MEDS: Lactated Ringer's 1,000 ML IV SCH ×3 (02:01→17:18)
[2018-04-01] MEDS: Acetaminophen 325 MG TAB PO PRN (02:01)
[2018-04-01] MEDS: Cefepime 2 GM in Sodium Chloride 0.9% 100 ML IVPB SCH ×3 (02:02→17:18)
[2018-04-01] MEDS: Linezolid 600 MG in Premix Bag 1 BAG IVPB SCH (04:28)
--- NOTE | 2018-04-01 05:00 | PDOC.FM ---
- Subjective Subjective: Nurse reports pt broke a fever overnight. Nurse otherwise reports pt did well overnight. Limited ROS/HPI 2/2 mental status. - Objective MAR Reviewed: Yes Vital Signs & Weight: Vital Signs (12 hours) Temp Pulse Ox 04/01/18 04:10 99.1 F 03/31/18 23:00 100.2 F H 03/31/18 20:00 99.2 F 100 03/31/18 17:00 98.6 F Weight Weight 86.693 kg Most Recent Monitor Data Heart Rate from ECG 89 NIBP 129/73 NIBP BP-Mean 91 Respiration from ECG 21 SpO2 100 I&O: 03/30/18 03/31/18 04/01/18 06:59 06:59 06:59 Intake Total 1469 1200 Balance 1469 1200 Result Diagrams: 04/01/18 06:02 04/01/18 06:02 Phys Exam - Physical Examination Constitutional: NAD HEENT: PERRLA, moist MMs Neck: supple Mild work of breathing, mild crackles on the left Cardiovascular: RRR, no significant murmur Gastrointestinal: soft, no distention, positive bowel sounds Musculoskeletal: pulses present, edema present (trace) follows commands, non verbal Skin: cap refill <2 seconds Dx/Plan (1) Sepsis due to pneumonia Code(s): J18.9 - PNEUMONIA, UNSPECIFIED ORGANISM; A41.9 - SEPSIS, UNSPECIFIED ORGANISM Status: Acute (2) Contact dermatitis Code(s): L25.9 - UNSPECIFIED CONTACT DERMATITIS, UNSPECIFIED CAUSE Status: Acute Qualifiers: Contact dermatitis type: allergic Contact dermatitis trigger: other chemical product Qualified Code(s): L23.5 - Allergic contact dermatitis due to other chemical products (3) DM2 (diabetes mellitus, type 2) Status: Chronic Qualifiers: Diabetes mellitus correction insulin use: without correction use Diabetes mellitus complication status: without complication Qualified Code(s): E11.9 - Type 2 diabetes mellitus without complications (4) Encephalopathy Code(s): G93.40 - ENCEPHALOPATHY, UNSPECIFIED Status: Chronic (5) HTN (hypertension) Code(s): I10 - ESSENTIAL (PRIMARY) HYPERTENSION Status: Chronic (6) Seizure disorder Code(s): G40.909 - EPILEPSY, UNSP, NOT INTRACTABLE, WITHOUT STATUS EPILEPTICUS Status: Chronic (7) Status post craniectomy Code(s): Z98.890 - OTHER SPECIFIED POSTPROCEDURAL STATES Status: Chronic (8) trach and peg Status: Chronic - Plan Plan: This is a 48 yo female with a trach collar and peg tube with pmh of HTN, GERD, recent craniectomy 2/2 ICP Sepsis 2/2 to RLL pneumonia -Sepsis resolved -HAP vs. CAP vs aspiration PNA -May be able to tolerate Vancomycin at a lower infusion rate, however she is currently on linezolid for MRSA coverage -Pt is on cefepine and levaquin due to psuedomonas coverage -Dr. Villegas consulted, appreciate recommendation -Pulmonology consulted, appreciate recommendations -Maintenance IVFs Hx of craniectomy with SUPERINTENDENT PLANT PROTECTION shunt placement -Dr. Jeong is pt's neurosurgeon Chronic Anemia -Slow decrease, 8.6 this AM, will follow HTN -Continue home metoprolol and monitor GERD -Home pantoprazole Contact dermatitis -Effecting skin around trach collar -Moisturizing cream and hygiene Seizure disorder -Resume home keppra Hx of RUE DVT -Team discussed with pharmacy lovenox for lovenox dosing -Currently on 60mg BID DM2 -A1c 4.9 -ACHS accuchecks, SSI Peg tube -Digital Technician consulted Bedbound and concern for developing pressure ulcers -Consulting PT/OT this morning
[2018-04-01 06:28] LABS: #Eosinphils 0.1 thou/uL (0.0-0.7); #Lymphocytes 1.1 thou/uL (1.20-3.40); #Monocytes 0.4 thou/uL (0.11-0.59); #Neutrophils 6.1 thou/uL (1.40-6.50); %Basophils 0.2 % (0.0-1.0); %Eosinophils 1.6 % (0.0-10.0); %Lymphocytes 14.4 % (21.0-51.0); %Monocytes 5.4 % (0.0-10.0); %Neutrophils 78.4 % (42.0-75.0); Hemoglobin 8.6 g/dL (12.0-16.0); Mean Corpuscular HGB CONC 31.3 g/dL (32.0-36.0); Mean Corpuscular Hemoglobin 29.4 pg (27.0-31.0); Mean Platelet Volume 7.3 fL (7.4-10.4); Platelet Count 362 thou/uL (130-400); RBC Distribution Width 13.2 % (11.5-14.5); Red Blood Cell (RBC) Count 2.91 mill/uL (4.20-5.40); White Blood Cell (WBC) Count 7.7 thou/uL (4.8-10.8)
[2018-04-01 06:45] LABS: Anion Gap 14 mmol/L (10-20); BUN (Urea Nitrogen) 7 mg/dL (7.0-18.7); Calc. Creatinine Clearance 182 mL/min (70-130); Calcium 9.2 mg/dL (7.8-10.44); Carbon Dioxide 24 mmol/L (22-29); Chloride 106 mmol/L (98-107); Estimated GFR-MDRD Greater than 90; Glucose 109 mg/dL (70-105); Potassium 3.3 mmol/L (3.5-5.1); Sodium 141 mmol/L (136-145)
[2018-04-01] MEDS: Metoprolol Tartrate 25 MG TAB PO SCH ×2 (08:49→21:12)
[2018-04-01] MEDS: levETIRAcetam 500 mg/5 ml Oral Solution PER TUBE SCH ×2 (08:50→21:12)
[2018-04-01] MEDS: Enoxaparin Sodium 60 MG/0.6 ML SYRINGE SC SCH (08:50)
[2018-04-01] MEDS: Pantoprazole 40 MG GRANULES PACKET PER TUBE SCH (08:50)
[2018-04-01] MEDS ORDERED: Sodium Bicarbonate Tab 325 MG TAB PER TUBE PRN (09:01)
[2018-04-01] MEDS ORDERED: Pancrelipase DR 12000 1 CAP FS PRN (09:01)
--- NOTE | 2018-04-01 09:42 | PRG ---
DATE OF SERVICE: 04/01/2018 SUBJECTIVE: She is doing well. No changes. OBJECTIVE: VITAL SIGNS: Temperature is 97.9, pulse 85, blood pressure 127/74, sat 100%. HEENT: Unremarkable. NECK: Trach in good position. LUNGS: Coarse breath sounds. CARDIAC: S1 and S2 regular. ABDOMEN: Soft. EXTREMITIES: No edema. LABORATORY DATA: White blood cell count 7.7, hematocrit 27.4, and platelet count 362. Sodium 141, potassium 3.3, chloride 106, CO2 of 24, BUN 7, creatinine 0.5, glucose 108. ASSESSMENT: 1. Right lower lobe pneumonia. 2. Status post trach placement. 3. Status post intracranial hemorrhage. PLAN: This patient can be transferred out to the floor at any time. Continue antibiotics per Dr. Villegas. Job ID: [id number]
--- NOTE | 2018-04-01 13:43 | PRG ---
DATE OF SERVICE: 04/01/2018 SUBJECTIVE: Enma is in the IMCU. She is awake, but does not interact with the examiner and does not establish eye contact due to her neurological impairment. OBJECTIVE: VITAL SIGNS: T-max 100.2 yesterday; today, she has been max 99.1, now 97.3; slightly tachycardic; O2 saturations are 100. HEENT: Dysconjugate eye movements, mostly due to the right eye third nerve palsy. Pupils are 3 mm, both are reactive, quite symmetric. NECK: Trach collar. LUNGS: Symmetric air entry. Diminished breath sounds at the right base. HEART: S1 and S2. Regular rate. ABDOMEN: Soft, not distended. NEURO: Unchanged. LABORATORY DATA: White cell count 7.7, hemoglobin 8.6, and platelets 362. Sodium of 141, creatinine 0.53. Procalcitonin 0.15. We have a respiratory virus PCR from nasopharyngeal swab, which was negative. Blood cultures are negative. IMAGING DATA: She had a CT angiogram, which showed no pulmonary embolism and mild right lower lobe consolidation noted. She had a vascular ultrasound with no evidence of thrombus in the right upper extremity venous system. ASSESSMENT AND DISCUSSION: Prior intracranial hemorrhage with severe neurological impairment, trach and gastrostomy tubes and tachypnea, fever, and likely aspiration pneumonia in view of the negative thromboembolism workup. Continue antimicrobial therapy as currently. Typically aspiration pneumonia treatment courses are relatively short, anywhere from 5 to 7 days. Job ID: [id number]
[2018-04-01] MEDS ORDERED: Vancomycin HCl 1 GM in Sodium Chloride 0.9% 250 ML 300 ML IVPB SCH (14:00)
[2018-04-01] MEDS: Vancomycin HCl 1.25 GM in Sodium Chloride 0.9% 250 ML 250 ML IVPB SCH (17:18)
--- NOTE | 2018-04-01 17:26 | PRG ---
DATE OF SERVICE: 04/01/2018 This is an addendum to the note of Dr. Isrrael June. Ms. Norwood is a very unfortunate 48-year-old lady, who had an intracranial bleed secondary to ruptured aneurysm several months ago. She has been cared for at [facility] in [place]. She developed signs and symptoms of pneumonia, was transported to our facility. She has been noted to have aspiration pneumonia and is on antibiotic coverage. We have consulted Dr. Villegas, who agrees with our current management. She is clinically stable enough to transfer to the regular floor. We will continue to follow with and follow the recommendations of Dr. Villegas. Overall, clinically, she seems improved. Job ID: [id number]
--- NOTE | 2018-04-02 05:30 | PDOC.FM ---
- Subjective Subjective: Pt had rash following administration of vancomycin. The vanc was stopped. In addition, pt's trach cannula was found to be removed overnight requiring attention of Dr. Vora, no changes in VS, slight increased WOB during episode. - Objective MAR Reviewed: Yes Vital Signs & Weight: Vital Signs (12 hours) Temp Pulse Ox 04/02/18 03:53 98.4 F 04/01/18 23:37 98.4 F 04/01/18 22:30 100 04/01/18 19:58 100.2 F H 04/01/18 17:57 99 Weight Admit Weight 85.757 kg Weight 86.693 kg Most Recent Monitor Data Heart Rate from ECG 90 NIBP 123/95 NIBP BP-Mean 104 Respiration from ECG 29 SpO2 100 I&O: 03/31/18 04/01/18 04/02/18 06:59 06:59 06:59 Intake Total 1469 3030 500 Balance 1469 3030 500 Result Diagrams: 04/01/18 06:02 04/01/18 06:02 Phys Exam - Physical Examination Resting HEENT: moist MMs Neck: no JVD Respiratory: no wheezing, no rales mild crackles on left lung base Cardiovascular: RRR, no significant murmur, no rub Gastrointestinal: soft, no distention, positive bowel sounds Musculoskeletal: no edema, pulses present moves right side, follows commands Deviation from normal: Follows commands Skin: cap refill <2 seconds Deviation from normal: 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 Dx/Plan (1) Sepsis due to pneumonia Code(s): J18.9 - PNEUMONIA, UNSPECIFIED ORGANISM; A41.9 - SEPSIS, UNSPECIFIED ORGANISM Status: Acute (2) Contact dermatitis Code(s): L25.9 - UNSPECIFIED CONTACT DERMATITIS, UNSPECIFIED CAUSE Status: Acute Qualifiers: Contact dermatitis type: allergic Contact dermatitis trigger: other chemical product Qualified Code(s): L23.5 - Allergic contact dermatitis due to other chemical products (3) DM2 (diabetes mellitus, type 2) Status: Chronic Qualifiers: Diabetes mellitus snf insulin use: without rat exterminator use Diabetes mellitus complication status: without complication Qualified Code(s): E11.9 - Type 2 diabetes mellitus without complications (4) Encephalopathy Code(s): G93.40 - ENCEPHALOPATHY, UNSPECIFIED Status: Chronic (5) HTN (hypertension) Code(s): I10 - ESSENTIAL (PRIMARY) HYPERTENSION Status: Chronic (6) Seizure disorder Code(s): G40.909 - EPILEPSY, UNSP, NOT INTRACTABLE, WITHOUT STATUS EPILEPTICUS Status: Chronic (7) Status post craniectomy Code(s): Z98.890 - OTHER SPECIFIED POSTPROCEDURAL STATES Status: Chronic (8) trach and peg Status: Chronic - Plan Plan: This is a 48 yo female with a trach collar and peg tube with pmh of HTN, GERD, recent craniectomy 2/2 ICP Sepsis 2/2 to RLL pneumonia -Sepsis resolved -HAP vs. CAP vs aspiration PNA -Abx regiment adjusted to vancomycin and cefepine, however pt had adverse reaction to a slower infusion of vancomycin so we are holding this morning. We will likely return to linezolid for MRSA coverage. -Dr. 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 Jeong is pt's neurosurgeon Chronic Anemia -Slow decrease, will follow HTN -Continue home metoprolol and monitor GERD -Home pantoprazole Contact dermatitis -Effecting skin around trach collar -Moisturizing cream and hygiene Seizure disorder -Resume home keppra Hx of RUE DVT -US negative, prophylactic lovenox DM2 -A1c 4.9 -ACHS accuchecks, SSI Peg tube -Remote Sensing Technician consulted Bedbound and concern for developing pressure ulcers -Consulting PT/OT this morning
[2018-04-02] MEDS ORDERED: diphenhydrAMINE 25 MG CAP PO SCH (06:30)
[2018-04-02] MEDS: Vancomycin HCl 1.25 GM in Sodium Chloride 0.9% 250 ML 250 ML IVPB SCH (06:45)
[2018-04-02] MEDS: Cefepime 2 GM in Sodium Chloride 0.9% 100 ML IVPB SCH ×3 (06:46→18:16)
[2018-04-02] MEDS: Lactated Ringer's 1,000 ML IV SCH ×3 (06:56→16:50)
--- NOTE | 2018-04-02 08:29 | PRG ---
DATE OF SERVICE: 04/02/2018 SUBJECTIVE: Ms. Reynolds trach was found to be pulled back yesterday and her ostomy site has closed up to the point where the trach cannot be reinserted. It is not quite clear to me the circumstance how all that happened, but I did try to reinsert the trach this morning and the hole is too small for even the obturator to fit. OBJECTIVE: VITAL SIGNS: Temperature is 99.2, pulse 99, blood pressure 105/76, O2 saturation 100%. HEENT: Unremarkable. NECK: No JVD. CHEST: Clear anteriorly. CARDIAC: S1, S2 regular. ABDOMEN: Soft. EXTREMITIES: No edema. LABORATORY DATA: No new labs were obtained today. ASSESSMENT: 1. Right lower lobe pneumonia. 2. Previous respiratory failure. 3. Previous stroke requiring tracheostomy tube placement and percutaneous endoscopic gastrostomy tube placement. PLAN: It is reasonable to see, if she can tolerate this situation without the tracheostomy. She appears comfortable at this time. She is continuing antibiotics for pneumonia. If she decompensates them, she will need to have the trach reinserted. Job ID: [id number]
[2018-04-02] MEDS: Pantoprazole 40 MG GRANULES PACKET PER TUBE SCH (09:25)
[2018-04-02] MEDS: Metoprolol Tartrate 25 MG TAB PO SCH ×2 (09:27→22:06)
[2018-04-02] MEDS: levETIRAcetam 500 mg/5 ml Oral Solution PER TUBE SCH ×2 (09:27→22:06)
[2018-04-02] MEDS: Enoxaparin Sodium 40 MG/0.4 ML SYRINGE SC SCH (09:29)
[2018-04-02 10:02] LABS: Anion Gap 10 mmol/L (10-20); BUN (Urea Nitrogen) 6 mg/dL (7.0-18.7); Calc. Creatinine Clearance 200 mL/min (70-130); Calcium 8.8 mg/dL (7.8-10.44); Carbon Dioxide 27 mmol/L (22-29); Chloride 107 mmol/L (98-107); Estimated GFR-MDRD Greater than 90; Glucose 96 mg/dL (70-105); Potassium 3.3 mmol/L (3.5-5.1); Sodium 141 mmol/L (136-145)
[2018-04-02 10:17] LABS: #Eosinphils 0.4 thou/uL (0.0-0.7); #Lymphocytes 0.7 thou/uL (1.20-3.40); #Monocytes 0.2 thou/uL (0.11-0.59); #Neutrophils 6.8 thou/uL (1.40-6.50); %Basophils 0.2 % (0.0-1.0); %Eosinophils 4.9 % (0.0-10.0); %Lymphocytes 8.6 % (21.0-51.0); %Monocytes 1.9 % (0.0-10.0); %Neutrophils 84.4 % (42.0-75.0); Hemoglobin 9.8 g/dL (12.0-16.0); Mean Corpuscular HGB CONC 31.2 g/dL (32.0-36.0); Mean Corpuscular Volume 92.9 fL (78.0-98.0); Mean Platelet Volume 7.2 fL (7.4-10.4); Platelet Count 480 thou/uL (130-400); Red Blood Cell (RBC) Count 3.36 mill/uL (4.20-5.40); White Blood Cell (WBC) Count 8.1 thou/uL (4.8-10.8)
--- NOTE | 2018-04-02 12:25 | PRG ---
DATE OF SERVICE: 04/02/2018 ADDENDUM: This is an addendum to the note of Dr. Isrrael June. Ms. Norwood is resting quietly and in no distress. In taking a further history from the mother, she states that in the past when the patient was given vancomycin, she not only broke out her eyes but she also developed wheezing. We will therefore discontinue the vancomycin and switch the patient back to linezolid. In the event, clinically she remains stable. Her white count this morning is 8,100. Her Chem-7 is normal with a sodium of 141, potassium of 3.3, chloride 107, bicarb 27, BUN 6, creatinine 0.48. T-max during the last 24 hours was 100.1. Job ID: [id number]
[2018-04-02] MEDS: Acetaminophen 325 MG TAB PO PRN (12:36)
[2018-04-02 14:56] LABS: Vancomycin, Trough 1.6 ug/mL
[2018-04-02] MEDS: Linezolid 600 MG in Premix Bag 1 BAG IVPB SCH (22:06)
[2018-04-03] MEDS: Lactated Ringer's 1,000 ML IV SCH ×3 (02:04→14:45)
[2018-04-03] MEDS: Cefepime 2 GM in Sodium Chloride 0.9% 100 ML IVPB SCH ×3 (02:04→17:52)
--- NOTE | 2018-04-03 05:12 | PDOC.FM ---
- Subjective Subjective: Nursing reports pt did well overnight, with no respiratory distress, despite trach canula removed. Nursing states that the rash and swelling is about the same. ROS limited by mental status. - Objective MAR Reviewed: Yes Vital Signs & Weight: Vital Signs (12 hours) Temp Resp Pulse Ox 04/03/18 04:00 99.0 F 26 H 04/02/18 23:45 99.3 F 04/02/18 19:38 99.2 F 04/02/18 19:25 100 Weight Admit Weight 85.757 kg Weight 86.693 kg Most Recent Monitor Data Heart Rate from ECG 106 NIBP 122/79 NIBP BP-Mean 93 Respiration from ECG 24 SpO2 100 I&O: 04/01/18 04/02/18 04/03/18 06:59 06:59 06:59 Intake Total 3030 2352 3260 Balance 3030 2352 3260 Result Diagrams: 04/02/18 10:06 04/02/18 09:27 Phys Exam - Physical Examination In bed, responding to contact, currently asleep HEENT: PERRLA, moist MMs Obvious bulge on right skull consistent with previous craniotomy Neck: supple Respiratory: no wheezing, no rales, clear to auscultation bilateral Cardiovascular: RRR Gastrointestinal: soft, no distention, positive bowel sounds Musculoskeletal: no edema, pulses present moves right side, responds to stimulation, let foot responds to stimulation Skin: cap refill <2 seconds Deviation from normal: Rash and swelling improved from yesterday, still present Dx/Plan (1) Sepsis due to pneumonia Code(s): J18.9 - PNEUMONIA, UNSPECIFIED ORGANISM; A41.9 - SEPSIS, UNSPECIFIED ORGANISM Status: Acute (2) Contact dermatitis Code(s): L25.9 - UNSPECIFIED CONTACT DERMATITIS, UNSPECIFIED CAUSE Status: Acute Qualifiers: Contact dermatitis type: allergic Contact dermatitis trigger: other chemical product Qualified Code(s): L23.5 - Allergic contact dermatitis due to other chemical products (3) DM2 (diabetes mellitus, type 2) Status: Chronic Qualifiers: Diabetes mellitus prison insulin use: without prison use Diabetes mellitus complication status: without complication Qualified Code(s): E11.9 - Type 2 diabetes mellitus without complications (4) Encephalopathy Code(s): G93.40 - ENCEPHALOPATHY, UNSPECIFIED Status: Chronic (5) HTN (hypertension) Code(s): I10 - ESSENTIAL (PRIMARY) HYPERTENSION Status: Chronic (6) Seizure disorder Code(s): G40.909 - EPILEPSY, UNSP, NOT INTRACTABLE, WITHOUT STATUS EPILEPTICUS Status: Chronic (7) Status post craniectomy Code(s): Z98.890 - OTHER SPECIFIED POSTPROCEDURAL STATES Status: Chronic (8) trach and peg Status: Chronic - Plan Plan: This is a 48 yo female with a trach collar and peg tube with pmh of HTN, GERD, recent craniectomy 2/2 ICP Sepsis 2/2 to RLL pneumonia -Sepsis resolved -HAP vs. CAP vs aspiration PNA -Abx regimen includes linezolid and cefepime (03/30) Can likely stop in 2 days -Dr. 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 Jeong is pt's neurosurgeon Chronic Anemia -Slow decrease, will follow HTN -Continue home metoprolol and monitor GERD -Home pantoprazole Contact dermatitis -Effecting skin around trach collar -Moisturizing cream and hygiene Seizure disorder -Resume home keppra Hx of RUE DVT -US negative, prophylactic lovenox DM2 -A1c 4.9 -ACHS accuchecks, SSI Peg tube -Hot Die Press Feeder consulted Bedbound and concern for developing pressure ulcers -Consulting PT/OT this morning
[2018-04-03 08:31] LABS: Anion Gap 9 mmol/L (10-20); BUN (Urea Nitrogen) 8 mg/dL (7.0-18.7); Calc. Creatinine Clearance 215 mL/min (70-130); Calcium 8.4 mg/dL (7.8-10.44); Carbon Dioxide 26 mmol/L (22-29); Chloride 106 mmol/L (98-107); Estimated GFR-MDRD Greater than 90; Glucose 95 mg/dL (70-105); Potassium 3.2 mmol/L (3.5-5.1); Sodium 138 mmol/L (136-145)
[2018-04-03 08:47] LABS: #Eosinphils 0.5 thou/uL (0.0-0.7); #Lymphocytes 0.6 thou/uL (1.20-3.40); #Monocytes 0.2 thou/uL (0.11-0.59); #Neutrophils 5.1 thou/uL (1.40-6.50); %Eosinophils 7.7 % (0.0-10.0); %Monocytes 3.8 % (0.0-10.0); %Neutrophils 79.5 % (42.0-75.0); Hemoglobin 9.5 g/dL (12.0-16.0); Mean Corpuscular Hemoglobin 29.4 pg (27.0-31.0); Mean Corpuscular Volume 94.8 fL (78.0-98.0); Mean Platelet Volume 7.3 fL (7.4-10.4); Platelet Count 445 thou/uL (130-400); RBC Distribution Width 13.1 % (11.5-14.5); Red Blood Cell (RBC) Count 3.23 mill/uL (4.20-5.40); White Blood Cell (WBC) Count 6.5 thou/uL (4.8-10.8)
[2018-04-03 09:51] VITALS: BMI 37.5
--- NOTE | 2018-04-03 10:01 | PRG ---
DATE OF SERVICE: 04/03/2018 SUBJECTIVE: Brigida has done well overnight. She is in no respiratory distress. OBJECTIVE: VITAL SIGNS: Temperature is 99.4, pulse 101, and blood pressure 135/81. HEENT: Unremarkable. NECK: Tracheostomy site is closed. CARDIAC: S1 and S2. Regular. LUNGS: Clear. ABDOMEN: Soft. EXTREMITIES: No edema. LABORATORY DATA: White blood cell count 6.5, hematocrit 30.6, and platelet count 445. Sodium 138, potassium 3.2, chloride 106, CO2 of 26, BUN 8, creatinine 0.4, and glucose 90. ASSESSMENT: 1. Pneumonia. 2. Status post inverted tracheostomy decannulation with subsequent closure of tracheostomy site. PLAN: 1. Continue antibiotics. 2. She can probably move out to medical or telemetry floor. 3. She seems to be doing okay without tracheostomy. Job ID: [id number]
[2018-04-03] MEDS: Pantoprazole 40 MG GRANULES PACKET PER TUBE SCH (11:03)
[2018-04-03] MEDS: Scopolamine 1.5 mg/72 hour Patch TOP SCH (11:04)
[2018-04-03] MEDS: Enoxaparin Sodium 40 MG/0.4 ML SYRINGE SC SCH (11:04)
[2018-04-03] MEDS: levETIRAcetam 500 mg/5 ml Oral Solution PER TUBE SCH ×2 (11:05→20:46)
[2018-04-03] MEDS: Linezolid 600 MG in Premix Bag 1 BAG IVPB SCH ×2 (11:05→20:44)
[2018-04-03] MEDS: Metoprolol Tartrate 25 MG TAB PO SCH ×2 (11:06→20:45)
--- NOTE | 2018-04-03 12:37 | PRG ---
DATE OF SERVICE: 04/03/2018 Ms. Norwood is resting quietly, in no respiratory distress. She has pulled her trachea apparatus again having no evidence of stridor or other issues with breathing. She is nearing the end time for using antibiotics for aspiration pneumonia after which we will be awaiting placement. Her white count now dropped to 6500. For the time being, we will continue to follow with the intensive care team in anticipation of either placement or telemetry floor in a day or two. Job ID: [id number]
--- NOTE | 2018-04-03 13:15 | PQF ---
LENIN NOLASCOSHELLEY ALONZO * r [id number] [facility]- B11 [id number] CLINICAL DOCUMENTATION IMPROVEMENT CLARIFICATION FORM: ICD-10 Updated PLEASE DO AN ADDENDUM TO THE PROGRESS NOTE WITH ANY DOCUMENTATION UPDATES OR ADDITIONS AND CARRY THROUGH TO DC SUMMARY. THANK YOU. DATE: 04/03/18 ATTN: DR.L TREVIZO Please exercise your independent, professional judgment in responding to the clarification form. Clinical indicators are provided on the bottom of this form for your review. Conflicting documentation was noted in the Medical Record, please clarify if patient is being treated/monitored for: Please check appropriate box(s): [x ] Aspiration Pneumonia [ ] Empirically treating gram negative pneumonia [ ] Right lower lobe Community Acquired Pneumonia [ ] Other diagnosis [ ] Unable to determine in addition, please specify: Present on Admission (POA): [ x ] Yes [ ] No [ ] Unable to determine For continuity of documentation, please document condition throughout progress notes and discharge summary. Thank You. CLINICAL INDICATORS - SIGNS / SYMPTOMS/ LABS 03/30 H & P (DILLARD) : 1) SEPSIS DUE TO PNEUMONIA 03/31 PN (BUSE) DX/PLAN : 1) SEPSIS DUE TO PNEUMONIA 03/31 PN (REMY) ASSESSMENT: 1) RIGHT LOWER LOBE HEALTHCARE ACQUIRED PNEUMONIA 04/01 PN (CINDY) ASSESSMENT/PLAN : LIKELY ASPIRATION PNEUMONIA IN VIEW OF THE NEGATIVE THROMBOEMBOLISM WORKUP. 04/01 PN (MALCOLM) : SHE HAS BEEN NOTED TO HAVE ASPIRATION PNEUMONIA 04/01 - 04/03 PN (JOSELINE) PLAN: SEPSIS 2/ TO RLL PNEUMONIA; HAP Vs CAP Vs ASPIRATION PNEUMONIA RISK: HX OF TRACH PEG TUBE IN PLACE TREATMENTS: LINEZOLID IV (03/31 -PRESENT) MAXIPIME IV ( 03/31 - PRESENT) LEVAQUIN IV (03/31) THANK YOU ! FARRUKH (This form is maintained as a part of the permanent medical record) 2014 [employer] All Rights Reserved [email or web address] [phone] [email or web address]
[2018-04-04] MEDS: Lactated Ringer's 1,000 ML IV SCH ×3 (01:02→15:07)
[2018-04-04] MEDS: Cefepime 2 GM in Sodium Chloride 0.9% 100 ML IVPB SCH ×2 (02:36→11:38)
--- NOTE | 2018-04-04 05:36 | PDOC.FM ---
- Subjective Subjective: Nursing states that pt's mentation is improving. She is interacting more with family. Nursing report she is having some rash following the cefepine. She maintained her oxygenation overnight. - Objective MAR Reviewed: Yes Vital Signs & Weight: Vital Signs (12 hours) Temp Pulse Resp BP Pulse Ox 04/04/18 04:00 99.2 F 93 18 124/77 100 04/04/18 00:00 99.5 F 90 20 129/79 100 04/03/18 20:00 98.6 F 97 20 125/72 97 04/03/18 18:25 98.5 F 98 20 166/66 H 98 Weight Admit Weight 85.757 kg Weight 87.09 kg Most Recent Monitor Data Heart Rate from ECG 99 NIBP 161/64 NIBP BP-Mean 96 Respiration from ECG 13 SpO2 100 I&O: 04/02/18 04/03/18 04/04/18 06:59 06:59 06:59 Intake Total 2352 4690 2600 Output Total 900 Balance 2352 4690 1700 Result Diagrams: 04/03/18 08:09 04/03/18 08:09 Phys Exam - Physical Examination Laying in bed, some movement HEENT: PERRLA, moist MMs Respiratory: no wheezing, no rales, no rhonchi Cardiovascular: RRR, no significant murmur Gastrointestinal: soft, no distention, positive bowel sounds mild edema in b/l LE and UE Moving right extremities and some left leg movement, follows commands Skin: cap refill <2 seconds Dx/Plan (1) Sepsis due to pneumonia Code(s): J18.9 - PNEUMONIA, UNSPECIFIED ORGANISM; A41.9 - SEPSIS, UNSPECIFIED ORGANISM Status: Acute (2) Contact dermatitis Code(s): L25.9 - UNSPECIFIED CONTACT DERMATITIS, UNSPECIFIED CAUSE Status: Acute Qualifiers: Contact dermatitis type: allergic Contact dermatitis trigger: other chemical product Qualified Code(s): L23.5 - Allergic contact dermatitis due to other chemical products (3) DM2 (diabetes mellitus, type 2) Status: Chronic Qualifiers: Diabetes mellitus longwall foreman insulin use: without custodial use Diabetes mellitus complication status: without complication Qualified Code(s): E11.9 - Type 2 diabetes mellitus without complications (4) Encephalopathy Code(s): G93.40 - ENCEPHALOPATHY, UNSPECIFIED Status: Chronic (5) HTN (hypertension) Code(s): I10 - ESSENTIAL (PRIMARY) HYPERTENSION Status: Chronic (6) Seizure disorder Code(s): G40.909 - EPILEPSY, UNSP, NOT INTRACTABLE, WITHOUT STATUS EPILEPTICUS Status: Chronic (7) Status post craniectomy Code(s): Z98.890 - OTHER SPECIFIED POSTPROCEDURAL STATES Status: Chronic (8) trach and peg Status: Chronic - Plan Plan: This is a 48 yo female with pmh of HTN, GERD, recent craniectomy 2/ ICP Sepsis 03/09 to RLL pneumonia -Sepsis resolved -aspiration PNA -Abx regimen includes linezolid and cefepime (03/30) Can likely stop later today -Dr. Villegas consulted, appreciate recommendation -Pulmonology consulted, appreciate recommendations -Maintenance IVFs -Pt moved to floor after maintaining airway on her own, s/p accidental removal of trach cannula Hx of craniectomy with CASHIER CLERK shunt placement -Dr. Jeong is pt's neurosurgeon Chronic Anemia -Slow decrease, will follow HTN -Continue home metoprolol and monitor GERD -Home pantoprazole Contact dermatitis -Effecting skin around trach collar -Moisturizing cream and hygiene Seizure disorder -Resume home keppra Hx of RUE DVT -US negative, prophylactic lovenox DM2 -A1c 4.9 -ACHS accuchecks, SSI Peg tube -Design Specialist consulted Bedbound and concern for developing pressure ulcers -Consulting PT/OT this morning
[2018-04-04 07:05] LABS: #Basophils 0.1 thou/uL (0.0-0.2); #Eosinphils 0.5 thou/uL (0.0-0.7); #Lymphocytes 0.8 thou/uL (1.20-3.40); #Monocytes 0.2 thou/uL (0.11-0.59); #Neutrophils 4.2 thou/uL (1.40-6.50); %Basophils 1.8 % (0.0-1.0); %Eosinophils 8.2 % (0.0-10.0); %Lymphocytes 13.6 % (21.0-51.0); %Monocytes 3.2 % (0.0-10.0); %Neutrophils 73.2 % (42.0-75.0); Hemoglobin 8.8 g/dL (12.0-16.0); Mean Corpuscular HGB CONC 31.9 g/dL (32.0-36.0); Mean Corpuscular Hemoglobin 29.6 pg (27.0-31.0); Mean Corpuscular Volume 92.8 fL (78.0-98.0); Mean Platelet Volume 6.7 fL (7.4-10.4); Platelet Count 506 thou/uL (130-400); RBC Distribution Width 13.1 % (11.5-14.5); Red Blood Cell (RBC) Count 2.98 mill/uL (4.20-5.40); White Blood Cell (WBC) Count 5.7 thou/uL (4.8-10.8)
[2018-04-04 07:19] LABS: Anion Gap 12 mmol/L (10-20); BUN (Urea Nitrogen) 5 mg/dL (7.0-18.7); Calc. Creatinine Clearance 215 mL/min (70-130); Calcium 8.6 mg/dL (7.8-10.44); Carbon Dioxide 25 mmol/L (22-29); Chloride 106 mmol/L (98-107); Estimated GFR-MDRD Greater than 90; Glucose 110 mg/dL (70-105); Potassium 3.1 mmol/L (3.5-5.1); Sodium 140 mmol/L (136-145)
[2018-04-04] MEDS: Linezolid 600 MG in Premix Bag 1 BAG IVPB SCH (08:59)
[2018-04-04] MEDS: Enoxaparin Sodium 40 MG/0.4 ML SYRINGE SC SCH (09:00)
[2018-04-04] MEDS: levETIRAcetam 500 mg/5 ml Oral Solution PER TUBE SCH ×2 (09:14→20:19)
[2018-04-04] MEDS: Metoprolol Tartrate 25 MG TAB PO SCH ×2 (09:15→20:18)
[2018-04-04] MEDS: Pantoprazole 40 MG GRANULES PACKET PER TUBE SCH (09:17)
--- NOTE | 2018-04-04 09:24 | PRG ---
DATE OF SERVICE: 04/04/2018 SUBJECTIVE: The patient is doing reasonably well. OBJECTIVE: VITAL SIGNS: Temperature 99.3, pulse 97, respirations 18, O2 saturation 100%, and blood pressure 115/77. HEENT: Unremarkable. NECK: No JVD. Trach site almost closed. LUNGS: Clear. CARDIAC: S1 and S2, regular. ABDOMEN: Soft. EXTREMITIES: No edema. LABORATORY DATA: White blood cell count 5.7, hematocrit 27.7, and platelet count 506. Sodium 140, BUN 5, creatinine 0.4, and glucose 110. ASSESSMENT: 1. Pneumonia. 2. Status post trach placement, inadvertent dislodgement. PLAN: Seems to be doing well without a trach. I would finish out antibiotics, probably stable to go back to LT[facility]. Job ID: [id number]
--- NOTE | 2018-04-04 12:35 | PRG ---
DATE OF SERVICE: 04/04/2018 ADDENDUM: This is an addendum to the note of Dr. Isrrael June. Ms. Norwood is resting quietly in bed. She exhibits no respiratory distress. Her white count is normal at 5700. She is afebrile with normal vital signs. She will complete her treatment for aspiration pneumonia today and we are afterwards awaiting placement. Job ID: [id number]
[2018-04-04] MEDS: Acetaminophen 325 MG TAB PO PRN (20:18)
[2018-04-05] MEDS: Acetaminophen 325 MG TAB PO PRN ×3 (01:29→20:55)
--- NOTE | 2018-04-05 06:11 | PDOC.FM ---
- Subjective Subjective: Nursing reports pt did well overnight. She had one episode of fever at 0001 this morning which resolved with tylenol. Pt is tolerating tube feeds. Nursing reports rash and swelling is improving. - Objective MAR Reviewed: Yes Vital Signs & Weight: Vital Signs (12 hours) Temp Pulse Resp BP Pulse Ox 04/05/18 05:12 99.7 F H 98 18 130/85 99 04/05/18 01:25 100.9 F H 99 20 140/93 H 100 04/04/18 21:30 100.2 F H 04/04/18 20:00 99 04/04/18 19:44 100.5 F H 105 H 20 129/83 99 Weight Admit Weight 85.757 kg Weight 87.09 kg Most Recent Monitor Data Heart Rate from ECG 99 NIBP 161/64 NIBP BP-Mean 96 Respiration from ECG 13 SpO2 100 I&O: 04/03/18 04/04/18 04/05/18 06:59 06:59 06:59 Intake Total 4690 4940 1535 Output Total 900 200 Balance 4690 4040 1335 Result Diagrams: 04/04/18 06:41 04/04/18 06:41 Phys Exam - Physical Examination Constitutional: NAD HEENT: moist MMs Neck: supple Respiratory: no wheezing Mild crackles at left lung base Cardiovascular: RRR, no significant murmur, no rub Gastrointestinal: soft, no distention, positive bowel sounds Musculoskeletal: no edema, pulses present Unchanged neuro exam Deviation from normal: Pt is improving in her interactions and movement Skin: cap refill <2 seconds Dx/Plan (1) Sepsis due to pneumonia Code(s): J18.9 - PNEUMONIA, UNSPECIFIED ORGANISM; A41.9 - SEPSIS, UNSPECIFIED ORGANISM Status: Acute (2) Contact dermatitis Code(s): L25.9 - UNSPECIFIED CONTACT DERMATITIS, UNSPECIFIED CAUSE Status: Acute Qualifiers: Contact dermatitis type: allergic Contact dermatitis trigger: other chemical product Qualified Code(s): L23.5 - Allergic contact dermatitis due to other chemical products (3) DM2 (diabetes mellitus, type 2) Status: Chronic Qualifiers: Diabetes mellitus roasterman insulin use: without jail use Diabetes mellitus complication status: without complication Qualified Code(s): E11.9 - Type 2 diabetes mellitus without complications (4) Encephalopathy Code(s): G93.40 - ENCEPHALOPATHY, UNSPECIFIED Status: Chronic (5) HTN (hypertension) Code(s): I10 - ESSENTIAL (PRIMARY) HYPERTENSION Status: Chronic (6) Seizure disorder Code(s): G40.909 - EPILEPSY, UNSP, NOT INTRACTABLE, WITHOUT STATUS EPILEPTICUS Status: Chronic (7) Status post craniectomy Code(s): Z98.890 - OTHER SPECIFIED POSTPROCEDURAL STATES Status: Chronic (8) trach and peg Status: Chronic - Plan Plan: This is a 48 yo female with pmh of HTN, GERD, recent craniectomy 2/2 ICP Sepsis 2/2 to RLL pneumonia -Sepsis resolved -aspiration PNA -Antibiotic regimen completed -Dr. Villegas consulted, appreciate recommendation -Pulmonology consulted, appreciate recommendations -Maintenance IVFs discontinued due to regular peg tube feedings -Pt moved to floor after maintaining airway on her own, s/p accidental removal of trach cannula -Pending local custodial placement Hx of craniectomy with EXPENSE ANALYST shunt placement -Dr. Jeong is pt's neurosurgeon Chronic Anemia -Slow decrease, will follow HTN -Continue home metoprolol and monitor GERD -Home pantoprazole Contact dermatitis -Improving s/p removal of trach cannula Seizure disorder -Resume home keppra Hx of RUE DVT -US negative, prophylactic lovenox DM2 -A1c 4.9 -ACHS accuchecks, SSI Peg tube -Sharepoint Net Developer consulted Bedbound and concern for developing pressure ulcers -Consulting PT/OT
[2018-04-05 07:35] LABS: #Eosinphils 0.4 thou/uL (0.0-0.7); #Lymphocytes 1.1 thou/uL (1.20-3.40); #Monocytes 0.3 thou/uL (0.11-0.59); #Neutrophils 5.2 thou/uL (1.40-6.50); %Eosinophils 5.1 % (0.0-10.0); %Lymphocytes 15.9 % (21.0-51.0); %Monocytes 3.6 % (0.0-10.0); %Neutrophils 75.4 % (42.0-75.0); Mean Corpuscular HGB CONC 31.3 g/dL (32.0-36.0); Mean Corpuscular Hemoglobin 28.6 pg (27.0-31.0); Mean Corpuscular Volume 91.4 fL (78.0-98.0); Platelet Count 604 thou/uL (130-400); RBC Distribution Width 13.3 % (11.5-14.5); Red Blood Cell (RBC) Count 3.14 mill/uL (4.20-5.40); White Blood Cell (WBC) Count 6.9 thou/uL (4.8-10.8)
[2018-04-05 07:55] LABS: Anion Gap 14 mmol/L (10-20); BUN (Urea Nitrogen) 8 mg/dL (7.0-18.7); Calc. Creatinine Clearance 190 mL/min (70-130); Calcium 8.8 mg/dL (7.8-10.44); Carbon Dioxide 22 mmol/L (22-29); Chloride 107 mmol/L (98-107); Estimated GFR-MDRD Greater than 90; Glucose 119 mg/dL (70-105); Potassium 3.6 mmol/L (3.5-5.1); Sodium 139 mmol/L (136-145)
[2018-04-05] MEDS: Enoxaparin Sodium 40 MG/0.4 ML SYRINGE SC SCH (08:20)
[2018-04-05] MEDS: levETIRAcetam 500 mg/5 ml Oral Solution PER TUBE SCH ×2 (08:20→20:57)
[2018-04-05] MEDS: Metoprolol Tartrate 25 MG TAB PO SCH ×2 (08:21→20:55)
[2018-04-05] MEDS: Pantoprazole 40 MG GRANULES PACKET PER TUBE SCH (08:22)
--- NOTE | 2018-04-05 08:58 | PRG ---
DATE OF SERVICE: 04/05/2018 SUBJECTIVE: She looks comfortable, has had no events overnight. OBJECTIVE: VITAL SIGNS: On exam, temperature 100.5 with a T-max of 100.9, pulse 109, respirations 18, O2 sat 99%, and blood pressure 132/85. HEENT: Unremarkable. NECK: Trach is closed up. CARDIAC: S1 and S2, regular. ABDOMEN: Soft. EXTREMITIES: No edema. LABORATORY DATA: White blood cell count 6.9, hematocrit 28.7, and platelet count 604. Sodium 139, potassium 3.6, chloride 107, CO2 of 22, BUN 8, creatinine 0.5, and glucose 119. ASSESSMENT: 1. Pneumonia. 2. Status post tracheostomy placement, subsequently dislodged. RECOMMENDATIONS: Given the low-grade fever, I would leave her on extended antibiotics - Omnicef for perhaps another week. Job ID: [id number]
[2018-04-05] MEDS: Cefdinir 300 MG CAP PER TUBE SCH (09:07)
--- NOTE | 2018-04-05 11:38 | PRG ---
DATE OF SERVICE: 04/05/2018 Ms. Norwood is still running some low-grade fevers. Given her compromised status, Dr. Shoemaker has recommended we continue her on oral antibiotics for another 7 days with Omnicef. Otherwise, no new changes in the patient's clinical status. Job ID: [id number]
--- NOTE | 2018-04-06 06:06 | PDOC.FM ---
- Subjective Subjective: Pt did well over night and is tolerating tube feeds. Pt did scratch her buttocks raw during a diaper change yesterday. - Objective MAR Reviewed: Yes Vital Signs & Weight: Vital Signs (12 hours) Temp Pulse Resp BP Pulse Ox 04/06/18 04:00 99.4 F 108 H 18 136/83 93 L 04/06/18 02:07 98.4 F 04/06/18 00:00 100.2 F H 99 18 128/83 93 L 04/05/18 20:40 93 L 04/05/18 19:00 100.3 F H 99 18 135/87 93 L Weight Admit Weight 85.757 kg Weight 87.09 kg Most Recent Monitor Data Heart Rate from ECG 99 NIBP 161/64 NIBP BP-Mean 96 Respiration from ECG 13 SpO2 100 I&O: 04/04/18 04/05/18 04/06/18 06:59 06:59 06:59 Intake Total 4940 2380 2382 Output Total 900 200 Balance 4040 2180 2382 Result Diagrams: 04/06/18 07:19 04/06/18 07:19 Phys Exam - Physical Examination Constitutional: NAD HEENT: moist MMs Neck: no JVD Respiratory: no wheezing, no rales, clear to auscultation bilateral Cardiovascular: RRR, no significant murmur, no rub Gastrointestinal: soft, no distention, positive bowel sounds Pt moved hand when pressing on RUQ of abdomen Musculoskeletal: no edema, pulses present Neuro exam unchanged, following commands Skin: cap refill <2 seconds Dx/Plan (1) Sepsis due to pneumonia Code(s): J18.9 - PNEUMONIA, UNSPECIFIED ORGANISM; A41.9 - SEPSIS, UNSPECIFIED ORGANISM Status: Acute (2) Contact dermatitis Code(s): L25.9 - UNSPECIFIED CONTACT DERMATITIS, UNSPECIFIED CAUSE Status: Acute Qualifiers: Contact dermatitis type: allergic Contact dermatitis trigger: other chemical product Qualified Code(s): L23.5 - Allergic contact dermatitis due to other chemical products (3) DM2 (diabetes mellitus, type 2) Status: Chronic Qualifiers: Diabetes mellitus termite renewal inspector insulin use: without retirement use Diabetes mellitus complication status: without complication Qualified Code(s): E11.9 - Type 2 diabetes mellitus without complications (4) Encephalopathy Code(s): G93.40 - ENCEPHALOPATHY, UNSPECIFIED Status: Chronic (5) HTN (hypertension) Code(s): I10 - ESSENTIAL (PRIMARY) HYPERTENSION Status: Chronic (6) Seizure disorder Code(s): G40.909 - EPILEPSY, UNSP, NOT INTRACTABLE, WITHOUT STATUS EPILEPTICUS Status: Chronic (7) Status post craniectomy Code(s): Z98.890 - OTHER SPECIFIED POSTPROCEDURAL STATES Status: Chronic (8) trach and peg Status: Chronic - Plan Plan: This is a 48 yo female with pmh of HTN, GERD, recent craniectomy 2/2 ICP Sepsis 2/2 to RLL pneumonia -Sepsis resolved -aspiration PNA - IV Antibiotic regimen completed, continuing cefdinir per peg due to slight fever after stopping IV abx -Dr. Villegas consulted, appreciate recommendation -Pulmonology consulted, appreciate recommendations -Maintenance IVFs discontinued due to regular peg tube feedings -Pt moved to floor after maintaining airway on her own, s/p accidental removal of trach cannula -Pending local fdc placement Hx of craniectomy with CONFLICTS ANALYST shunt placement -Dr. Jeong is pt's neurosurgeon Chronic Anemia -Slow decrease, will follow HTN -Continue home metoprolol and monitor GERD -Home pantoprazole Contact dermatitis -Improving s/p removal of trach cannula Seizure disorder -Resume home keppra Hx of RUE DVT -US negative, prophylactic lovenox DM2 -A1c 4.9 -ACHS accuchecks, SSI Peg tube -Virtualization Engineer consulted Bedbound and concern for developing pressure ulcers -Consulting PT/OT Wound on buttocks from scratching -Consult wound care Addendum - Attending - Attending Attestation Date/Time: 04/06/18 9181 I personally evaluated the patient and discussed the management with Dr. June. I agree with the History, Examination, Assessment and Plan documented above with any addition or exceptions noted below. The patient is resting comfortably this morning. Tolerating tube feeds. Will monitor temperature spikes at night. Waiting on fdc placement.
[2018-04-06 07:52] LABS: Anion Gap 12 mmol/L (10-20); BUN (Urea Nitrogen) 12 mg/dL (7.0-18.7); Calc. Creatinine Clearance 186 mL/min (70-130); Calcium 9.1 mg/dL (7.8-10.44); Carbon Dioxide 24 mmol/L (22-29); Chloride 104 mmol/L (98-107); Estimated GFR-MDRD Greater than 90; Glucose 132 mg/dL (70-105); Potassium 4.3 mmol/L (3.5-5.1); Sodium 136 mmol/L (136-145)
[2018-04-06 10:01] LABS: #Eosinphils 0.4 thou/uL (0.0-0.7); #Lymphocytes 1.7 thou/uL (1.20-3.40); #Monocytes 0.5 thou/uL (0.11-0.59); #Neutrophils 7.1 thou/uL (1.40-6.50); %Basophils 0.5 % (0.0-1.0); %Lymphocytes 17.5 % (21.0-51.0); %Monocytes 4.9 % (0.0-10.0); %Neutrophils 73.2 % (42.0-75.0); Hemoglobin 9.6 g/dL (12.0-16.0); Mean Corpuscular HGB CONC 31.5 g/dL (32.0-36.0); Mean Corpuscular Hemoglobin 29.3 pg (27.0-31.0); Mean Platelet Volume 6.4 fL (7.4-10.4); Platelet Count 720 thou/uL (130-400); RBC Distribution Width 13.5 % (11.5-14.5); Red Blood Cell (RBC) Count 3.27 mill/uL (4.20-5.40); White Blood Cell (WBC) Count 9.7 thou/uL (4.8-10.8)
[2018-04-06] MEDS: Metoprolol Tartrate 25 MG TAB PO SCH ×2 (10:38→21:32)
[2018-04-06] MEDS: Scopolamine 1.5 mg/72 hour Patch TOP SCH (10:38)
[2018-04-06] MEDS: Cefdinir 300 MG CAP PER TUBE SCH (10:38)
[2018-04-06] MEDS: Pantoprazole 40 MG GRANULES PACKET PER TUBE SCH (10:38)
[2018-04-06] MEDS: levETIRAcetam 500 mg/5 ml Oral Solution PER TUBE SCH ×2 (10:39→21:32)
[2018-04-06] MEDS: Enoxaparin Sodium 40 MG/0.4 ML SYRINGE SC SCH (10:39)
[2018-04-06] MEDS: Acetaminophen 325 MG TAB PO PRN ×2 (12:08→21:32)
--- NOTE | 2018-04-06 19:08 | PRG ---
DATE OF SERVICE: 04/06/2018 SUBJECTIVE: Ms. Norwood is not responsive, keeps her eyes closed. OBJECTIVE: VITAL SIGNS: T-max 100.6, BP 130/80, pulse 96 to 108, respirations 19. SKIN: Mild abrasion in the gluteal region noted, seems to be worsened on admission. HEENT: Ocular movements are dysconjugate. LUNGS: Symmetric air entry. HEART: S1 and S2, regular rate. ABDOMEN: Soft. LABORATORY DATA: White cell count 9.7, hemoglobin 9.6, platelets 720. Sodium 136, creatinine 0.52. Procalcitonin 0.04. Respiratory virus PCR panel was negative. ASSESSMENT AND DISCUSSION: Prior intracranial hemorrhage, severe neurological impairment, trach and gastrostomy tubes, tachypnea, fever, likely aspiration pneumonia in view of negative thromboembolism workup, recurrence of low-grade temp elevation. She will continue to be at risk for these types of complications. Infection of the CLINICAL INFORMATICS PHYSICIAN shunt is another consideration, but I do not think it merits evaluation at this point in time just yet. If she continues to have fever, then we will may have to consider evaluation of the CSF to see if she has CLINICAL INFORMATICS PHYSICIAN shunt infection. Job ID: [id number]
--- NOTE | 2018-04-06 20:13 | PRG ---
DATE OF SERVICE: 04/06/2018 SERVICE: Pulmonary Medicine. INTERVAL HISTORY: The patient is doing fine from Respiratory standpoint. She is breathing comfortably. She is sleeping comfortably. I woke her up. She will drift back off to sleep with no stimulation after about a minute. That being said, she does not look to be in any distress. She is following some simple commands. PHYSICAL EXAMINATION: VITAL SIGNS: Afebrile currently. Her T-max has been 100.6, pulse 96, blood pressure 131/82, respirations 19, and saturation is 92% on room air. GENERAL: The patient is awake and alert, in no apparent distress. LUNGS: Decent air entry. No prolonged expiratory phase present. Rhonchi are noted. HEART: Normal rate. Regular. ABDOMEN: Soft, nontender, and nondistended. Bowel sounds are positive. MUSCULOSKELETAL: No cyanosis or clubbing. There is no pitting in the bilateral lower extremities. LABORATORIES: WBC 9.7, hemoglobin 9.6, and platelets 720,000 and increasing. Basic metabolic profile is essentially unremarkable. Procalcitonin is very low. Urinalysis is negative. Respiratory virus panel was previously unremarkable. Blood cultures x2 are negative. ASSESSMENT: 1. Healthcare-associated pneumonia. 2. History of tracheostomy. 3. Static encephalopathy. 4. Secondary to remote intracranial hemorrhage. DISCUSSION AND PLAN: The patient is doing fine from Respiratory standpoint currently. We will give her a laboratory holiday tomorrow morning. We will follow her clinically. Hopefully, she will clear this inflammatory profile. She is at extremely high risk of recurrent aspiration related disease process. Pulmonary will continue to follow. Job ID: [id number]
--- NOTE | 2018-04-07 06:04 | PDOC.FM ---
- Subjective Subjective: Nursing report pt is making mental improvement and is verbally communicating on a basic level. Nurse reports pt is otherwise doing well this morning. She reports fevers on an off. - Objective MAR Reviewed: Yes Vital Signs & Weight: Vital Signs (12 hours) Temp Pulse Resp BP Pulse Ox 04/07/18 05:51 99.6 F 04/07/18 04:21 101.2 F H 117 H 16 112/70 95 04/07/18 00:56 100.1 F H 108 H 20 132/84 94 L 04/06/18 21:27 98.1 F 105 H 20 128/79 93 L 04/06/18 20:00 101.4 F H 117 H 20 123/81 90 L Weight Admit Weight 85.757 kg Weight 87.09 kg Most Recent Monitor Data Heart Rate from ECG 99 NIBP 161/64 NIBP BP-Mean 96 Respiration from ECG 13 SpO2 100 I&O: 04/05/18 04/06/18 04/07/18 06:59 06:59 06:59 Intake Total 2380 3849 1487 Output Total 200 Balance 2180 3849 1487 Result Diagrams: 04/06/18 07:19 04/06/18 07:19 Phys Exam - Physical Examination Laying in bed HEENT: PERRLA, moist MMs There does not seem to be noticable changes in right cranial swelling Neck: supple Respiratory: no wheezing, no rales, clear to auscultation bilateral Coarse lung sounds consistent with upper airway congestion Cardiovascular: RRR, no significant murmur, no rub Gastrointestinal: soft, no distention, positive bowel sounds Musculoskeletal: no edema, pulses present Moves right extremities well, does not move left upper arm Neuro exam otherwise unchanged Skin: cap refill <2 seconds Dx/Plan (1) Sepsis due to pneumonia Code(s): J18.9 - PNEUMONIA, UNSPECIFIED ORGANISM; A41.9 - SEPSIS, UNSPECIFIED ORGANISM Status: Acute (2) Contact dermatitis Code(s): L25.9 - UNSPECIFIED CONTACT DERMATITIS, UNSPECIFIED CAUSE Status: Acute Qualifiers: Contact dermatitis type: allergic Contact dermatitis trigger: other chemical product Qualified Code(s): L23.5 - Allergic contact dermatitis due to other chemical products (3) DM2 (diabetes mellitus, type 2) Status: Chronic Qualifiers: Diabetes mellitus custodial insulin use: without middle or intermediate school principal use Diabetes mellitus complication status: without complication Qualified Code(s): E11.9 - Type 2 diabetes mellitus without complications (4) Encephalopathy Code(s): G93.40 - ENCEPHALOPATHY, UNSPECIFIED Status: Chronic (5) HTN (hypertension) Code(s): I10 - ESSENTIAL (PRIMARY) HYPERTENSION Status: Chronic (6) Seizure disorder Code(s): G40.909 - EPILEPSY, UNSP, NOT INTRACTABLE, WITHOUT STATUS EPILEPTICUS Status: Chronic (7) Status post craniectomy Code(s): Z98.890 - OTHER SPECIFIED POSTPROCEDURAL STATES Status: Chronic (8) trach and peg Status: Chronic - Plan Plan: This is a 48 yo female with pmh of HTN, GERD, recent craniectomy 2/2 ICP Sepsis 2/2 to RLL pneumonia -Sepsis resolved -aspiration PNA, pt at continued risk of aspiration - IV Antibiotic regimen completed, continuing cefdinir per peg due to slight fever after stopping IV abx -Dr. Villegas consulted, appreciate recommendation -Pulmonology consulted, appreciate recommendations -Maintenance IVFs discontinued due to regular peg tube feedings -Pt moved to floor after maintaining airway on her own, s/p accidental removal of trach cannula -Pending local care home placement -Will consider CSF studies and blood cultures if pt's fever continues Hx of craniectomy with COPIER FIELD SERVICE TECHNICIAN shunt placement -Dr. Jeong is pt's neurosurgeon Chronic Anemia -Slow decrease, will follow HTN -Continue home metoprolol and monitor GERD -Home pantoprazole Contact dermatitis -Improving s/p removal of trach cannula Seizure disorder -Resume home keppra Hx of RUE DVT -US negative, prophylactic lovenox DM2 -A1c 4.9 -ACHS accuchecks, SSI Peg tube -Roustabout Head consulted Bedbound and concern for developing pressure ulcers -Consulting PT/OT Wound on buttocks from scratching -Consult wound care Addendum - Attending - Attending Attestation Date/Time: 04/07/18 1300 I personally evaluated the patient and discussed the management with Dr. June. I agree with the History, Examination, Assessment and Plan documented above with any addition or exceptions noted below. The patient is resting comfortably. If she spike another fever will reculture patient. Placement is pending.
[2018-04-07] MEDS: Metoprolol Tartrate 25 MG TAB PO SCH ×2 (08:33→21:17)
[2018-04-07] MEDS: Cefdinir 300 MG CAP PER TUBE SCH (08:33)
[2018-04-07] MEDS: Pantoprazole 40 MG GRANULES PACKET PER TUBE SCH (08:33)
[2018-04-07] MEDS: levETIRAcetam 500 mg/5 ml Oral Solution PER TUBE SCH ×2 (08:35→21:17)
[2018-04-07] MEDS: Enoxaparin Sodium 40 MG/0.4 ML SYRINGE SC SCH (08:38)
[2018-04-07] MEDS: Acetaminophen 325 MG TAB PO PRN (08:39)
[2018-04-07 14:34] LABS: Bilirubin Negative (Negative); Blood, Urine Negative (Negative); Clarity CLEAR (Clear); Glucose, Urine (Dipstick) Negative (Negative); Leukocyte Negative (Negative); Nitrite Negative (Negative); Protein, Urine (Dipstick) Negative (Neg-Trace); Specific Gravity, Urine 1.012 (1.002-1.036); Urobilinogen 0.2 mg/dL (0.2-1.0)
[2018-04-07 14:36] LABS: Bacteria/HPF None Seen HPF (None Seen); Hyaline Casts/LPF 0-3 HYALINE CAST LPF (0-3 Hyaline); Pathc Cast-AUWi Flag 0.14 (0-2.49); Squamous Epithelial 0-3 HPF (0-3); WBC/HPF 0-3 HPF (0-3)
[2018-04-07 14:46] LABS: RBC/HPF None Seen HPF (0-3)
--- NOTE | 2018-04-07 15:11 | RAD ---
PORTABLE AP CHEST: Date: 04/07/18 HISTORY: Fever, aspiration risk. COMPARISON: 03/30/18. FINDINGS: Ventriculoperitoneal shunt catheter again overlies the right neck, as well as chest. Cardiac silhouet te and pulmonary vasculature are within normal limits. Bronchovascular markings are accentuated due t o shallow depth of inspiration and portable technique, but there is no consolidation or pleural fluid seen. The air space opacities within the lungs on the prior study have resolved and may have been re lated to atelectasis. No other findings. IMPRESSION: No acute cardiopulmonary process. POS: [facility]
--- NOTE | 2018-04-07 18:51 | PRG ---
DATE OF SERVICE: 04/07/2018 SERVICE: Pulmonary Medicine. INTERVAL HISTORY: The patient is doing fine from respiratory standpoint. Breathing comfortably. She is sleeping. I woke her up, she was able to follow some simple commands. Otherwise, she is not able to participate in any review of systems. PHYSICAL EXAMINATION: VITAL SIGNS: Afebrile. T-max of 99.7. Pulse 96, blood pressure 135/89, respirations 20, and saturation 94% on room air. GENERAL: The patient is somnolent. No apparent distress. HEENT: Normocephalic and atraumatic. Sclerae white. Conjunctivae pink. Oral mucosa is moist without lesions. LUNGS: Decent air entry. Rhonchi are present. No prolonged expiratory phase or wheezing. HEART: Normal rate and regular. ABDOMEN: Soft, nontender, nondistended, bowel sounds are positive. MUSCULOSKELETAL: No cyanosis or clubbing. There is no pitting in the bilateral lower extremities. LABORATORY DATA: Blood sugars range from 99 to 144. IMAGING: Chest x-ray demonstrates no acute cardiopulmonary abnormality. There is a LAWN CARE TECHNICIAN shunt present. ASSESSMENT: 1. Static encephalopathy. 2. History of tracheostomy, status post decannulation. 3. Healthcare-associated pneumonia. 4. History of intracranial hemorrhage. DISCUSSION AND PLAN: The patient is doing fine from respiratory standpoint. Pulmonary will continue to follow, intermittently during the hospital stay. Please call with additional questions or concerns through time. The patient remains extremely high risk of aspiration related disease. Job ID: [id number]
--- NOTE | 2018-04-08 07:20 | PDOC.FM ---
- Subjective Subjective: Patient remains at baseline w/ GCS score of ~10 on exam. Follows some commands. In NAD on exam. - Objective MAR Reviewed: Yes Vital Signs & Weight: Vital Signs (12 hours) Temp Pulse Resp BP Pulse Ox 04/08/18 05:33 99.5 F 120 H 24 H 125/85 94 L 04/08/18 00:40 99.7 F H 110 H 16 132/90 95 Weight Admit Weight 85.757 kg Weight 87.09 kg Most Recent Monitor Data Heart Rate from ECG 99 NIBP 161/64 NIBP BP-Mean 96 Respiration from ECG 13 SpO2 100 I&O: 04/07/18 04/08/18 04/09/18 06:59 06:59 06:59 Intake Total 2631 3956 Balance 2631 3956 Result Diagrams: 04/06/18 07:19 04/06/18 07:19 Phys Exam - Physical Examination Constitutional: NAD HEENT: moist MMs Neck: supple, full ROM Respiratory: no wheezing, no rales, no rhonchi, clear to auscultation bilateral (in B/L upper lobes) Cardiovascular: no significant murmur tachycardic w/ regular rhythm Gastrointestinal: soft, positive bowel sounds PEG tube in place Musculoskeletal: no edema, pulses present unable to move left extremities Deviation from normal: unable to assess as patient is non-verbal Skin: no rash, normal turgor Deviation from normal: previous trach site healing well/ no concern for infection Dx/Plan (1) Sepsis due to pneumonia Code(s): J18.9 - PNEUMONIA, UNSPECIFIED ORGANISM; A41.9 - SEPSIS, UNSPECIFIED ORGANISM Status: Acute (2) Chronic anemia Code(s): D64.9 - ANEMIA, UNSPECIFIED Status: Chronic (3) DM2 (diabetes mellitus, type 2) Status: Chronic Qualifiers: 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: without roll edge machine operator use Diabetes mellitus complication status: without complication Qualified Code(s): E11.9 - Type 2 diabetes mellitus without complications (4) GERD (gastroesophageal reflux disease) Code(s): K21.9 - GASTRO-ESOPHAGEAL REFLUX DISEASE WITHOUT ESOPHAGITIS Status: Chronic (5) HTN (hypertension) Code(s): I10 - ESSENTIAL (PRIMARY) HYPERTENSION Status: Chronic (6) ICH (intracerebral hemorrhage) Code(s): I61.9 - NONTRAUMATIC INTRACEREBRAL HEMORRHAGE, UNSPECIFIED Status: Chronic Qualifiers: Intracerebral hemorrhage etiology: nontraumatic Laterality: left (7) Seizure disorder Code(s): G40.909 - EPILEPSY, UNSP, NOT INTRACTABLE, WITHOUT STATUS EPILEPTICUS Status: Chronic (8) Status post craniectomy Code(s): Z98.890 - OTHER SPECIFIED POSTPROCEDURAL STATES Status: Chronic (9) trach and peg Status: Chronic - Plan Plan: This is a 48 yo female with pmh of HTN, GERD, recent craniectomy 2/2 ICP Sepsis 2/2 to RLL presumed aspiration pneumonia -Sepsis resolved. -aspiration PNA, pt at continued risk of aspiration. -IV Antibiotic regimen completed, continuing cefdinir per peg due to persistent fevers after stopping IV abx. -Dr. Villegas consulted, appreciate recommendations. -Pulmonology consulted, appreciate recommendations. -Will continue peg tube hydration. -Pt has been stable on the floor for the last several days after maintaining airway on her own, s/p accidental removal of trach cannula. -Pending local fdc placement. -Will consider CSF studies if pt's fever continues. Repeat blood & urine Cxs pending that were drawn yesterday. Hx of craniectomy with TOMBSTONE SETTER shunt placement - Aware, Dr. Jeong is pt's neurosurgeon. Chronic Anemia - Aware, Hgb has remained stable within baseline range since admission. HTN -Continue home metoprolol and monitor. GERD -Home pantoprazole Contact dermatitis -Improving s/p removal of trach cannula Seizure disorder -Resume home keppra Hx of RUE DVT -US negative, prophylactic lovenox DM2 -A1c 4.9 -ACHS accuchecks, SSI PRN. Peg tube - Commodity Director on board. Bedbound and concern for developing pressure ulcers - PT/OT on board. Wound on buttocks from scratching - WC on board. Addendum - Attending - Attending Attestation Date/Time: 04/08/18 1650 I personally evaluated the patient and discussed the management with Dr. Merida. I agree with the History, Examination, Assessment and Plan documented above with any addition or exceptions noted below. Respiratory viral panel positive for adenovirus and rhinovirus. This could be source of fever. Still waiting on placement. will f/u with Dr. Villegas.
--- NOTE | 2018-04-08 08:38 | PRG ---
DATE OF SERVICE: 04/08/2018 SUBJECTIVE: She is noncommunicative, but looks comfortable. OBJECTIVE: VITAL SIGNS: On exam, temperature is 99.5, pulse 105 to 120, O2 sat 94% on room air, and blood pressure 135/85. HEENT: With missing skull flap of right jain area. NECK: Healing tracheostomy site. LUNGS: Clear. CARDIAC: S1 and S2, regular. ABDOMEN: Soft. EXTREMITIES: No edema. ASSESSMENT: 1. Multiple viral infections. 2. Status post trach. 3. Stable pulmonary status. PLAN: Mainly usp issue at this point with stopping antibiotics after full 7 days. Job ID: [id number]
[2018-04-08] MEDS: Pantoprazole 40 MG GRANULES PACKET PER TUBE SCH (09:12)
[2018-04-08] MEDS: levETIRAcetam 500 mg/5 ml Oral Solution PER TUBE SCH ×2 (09:12→20:40)
[2018-04-08] MEDS: Metoprolol Tartrate 25 MG TAB PO SCH ×2 (09:13→20:39)
[2018-04-08] MEDS: Enoxaparin Sodium 40 MG/0.4 ML SYRINGE SC SCH (09:15)
[2018-04-08] MEDS: Cefdinir 300 MG CAP PER TUBE SCH (09:15)
--- NOTE | 2018-04-09 07:30 | PDOC.FM ---
- Subjective Subjective: Patient in NAD on exam. Follows some commands. Afebrile overnight. - Objective MAR Reviewed: Yes Vital Signs & Weight: Vital Signs (12 hours) Temp Pulse Resp BP Pulse Ox 04/09/18 05:18 98 F 105 H 18 142/94 H 92 L 04/09/18 00:18 98.4 F 100 18 138/86 92 L 04/08/18 20:00 98.5 F 111 H 18 142/84 H 96 Weight Admit Weight 85.757 kg Weight 87.09 kg Most Recent Monitor Data Heart Rate from ECG 99 NIBP 161/64 NIBP BP-Mean 96 Respiration from ECG 13 SpO2 100 I&O: 04/08/18 04/09/18 04/10/18 06:59 06:59 06:59 Intake Total 3956 2042 Balance 3956 2041 Result Diagrams: 04/09/18 07:43 04/06/18 07:19 Phys Exam - Physical Examination Constitutional: NAD HEENT: moist MMs Neck: supple, full ROM Respiratory: no wheezing, no rales, no rhonchi, clear to auscultation bilateral course upper airway sounds but B/L Upper lobes CTAB Cardiovascular: RRR, no significant murmur Gastrointestinal: soft, non-tender, positive bowel sounds PEG tube in place Musculoskeletal: no edema unable to move left extremities Deviation from normal: unable to assess as patient in non-verbal Skin: no rash, normal turgor, cap refill <2 seconds Dx/Plan (1) Sepsis due to pneumonia Code(s): J18.9 - PNEUMONIA, UNSPECIFIED ORGANISM; A41.9 - SEPSIS, UNSPECIFIED ORGANISM Status: Acute (2) Chronic anemia Code(s): D64.9 - ANEMIA, UNSPECIFIED Status: Chronic (3) DM2 (diabetes mellitus, type 2) Status: Chronic 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: 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: without senior living use Diabetes mellitus complication status: without complication Qualified Code(s): E11.9 - Type 2 diabetes mellitus without complications (4) GERD (gastroesophageal reflux disease) Code(s): K21.9 - GASTRO-ESOPHAGEAL REFLUX DISEASE WITHOUT ESOPHAGITIS Status: Chronic (5) HTN (hypertension) Code(s): I10 - ESSENTIAL (PRIMARY) HYPERTENSION Status: Chronic (6) ICH (intracerebral hemorrhage) Code(s): I61.9 - NONTRAUMATIC INTRACEREBRAL HEMORRHAGE, UNSPECIFIED Status: Chronic Qualifiers: Intracerebral hemorrhage etiology: nontraumatic Laterality: left (7) Seizure disorder Code(s): G40.909 - EPILEPSY, UNSP, NOT INTRACTABLE, WITHOUT STATUS EPILEPTICUS Status: Chronic (8) Status post craniectomy Code(s): Z98.890 - OTHER SPECIFIED POSTPROCEDURAL STATES Status: Chronic (9) trach and peg Status: Chronic - Plan Plan: This is a 48 yo female with pmh of HTN, GERD, & recent craniectomy 2/2 ICP admitted for sepsis 2/2 suspected aspiration pneumonia. Sepsis 2/2 to RLL presumed aspiration pneumonia -Sepsis resolved. -Aspiration PNA, pt at continued risk of aspiration per ST & pulmonology. -IV Antibiotic regimen completed, continuing cefdinir per peg due to persistent fevers after stopping IV abx for full 7 days per pulm recs. Appreciate recommendations. -Dr. Villegas consulted, appreciate recommendations. -Will continue peg tube hydration & feeds. -Pt has been stable on the floor for the last several days after maintaining airway on her own, s/p accidental removal of trach cannula. -Pending local half-way placement. -Repeat blood & urine Cxs showed only a likely contaminant in 1/2 cultures. Patient actually clinically improving as she has been afebrile since 04/07/18. Hx of craniectomy with INFRASTRUCTURE ENGINEER shunt placement - Aware, Dr. Jeong is pt's neurosurgeon. Chronic Anemia - Aware, Hgb has remained stable within baseline range since admission. HTN -Continue home metoprolol and monitor. GERD -Home pantoprazole Contact dermatitis -Improving s/p removal of trach cannula Seizure disorder -Resume home keppra Hx of RUE DVT -US negative, prophylactic lovenox DM2 -A1c 4.9 -ACHS accuchecks, SSI PRN. Peg tube - M1A1 Tank Crewman on board. Bedbound and concern for developing pressure ulcers - PT/OT on board. Wound on buttocks from scratching - WC on board. Dispo: D/c to NH once accepted. Will f/u w/ CM regarding placement status. Addendum - Attending - Attending Attestation Date/Time: 04/09/18 1030 I personally evaluated the patient and discussed the management with Dr. Mas. I agree with the History, Examination, Assessment and Plan documented above with any addition or exceptions noted below. The patient was afebrile overnight. She is waiting on placement.
[2018-04-09 07:54] LABS: #Eosinphils 0.3 thou/uL (0.0-0.7); #Lymphocytes 2.5 thou/uL (1.20-3.40); #Monocytes 0.5 thou/uL (0.11-0.59); #Neutrophils 4.9 thou/uL (1.40-6.50); %Basophils 0.5 % (0.0-1.0); %Eosinophils 4.2 % (0.0-10.0); %Lymphocytes 30.3 % (21.0-51.0); %Monocytes 6.5 % (0.0-10.0); %Neutrophils 58.5 % (42.0-75.0); Hemoglobin 10.9 g/dL (12.0-16.0); Mean Corpuscular Volume 90.5 fL (78.0-98.0); Mean Platelet Volume 6.4 fL (7.4-10.4); Platelet Count 838 thou/uL (130-400); RBC Distribution Width 13.4 % (11.5-14.5); Red Blood Cell (RBC) Count 3.88 mill/uL (4.20-5.40); White Blood Cell (WBC) Count 8.3 thou/uL (4.8-10.8)
--- NOTE | 2018-04-09 09:22 | PRG ---
DATE OF SERVICE: 04/09/2018 SUBJECTIVE: The patient is doing reasonably well. She is starting to vocalize a little bit, but she is OBJECTIVE: VITAL SIGNS: Temperature 98, pulse 105, respirations HEENT: Unremarkable. NECK: No adenopathy or JVD. CHEST: Clear anteriorly. CARDIAC: S1 and S2, regular. ABDOMEN: Soft. EXTREMITIES: Trace edema. LABORATORY DATA: White blood cell count 8.3, hematocrit 35, and platelet count 838. ASSESSMENT: 1. Status post tracheostomy decannulation. 2. Multiple viral infections. 3. Stable pulmonary status. PLAN: She is probably stable to go to nursing facility. No further recommendations. Job ID: [id number]
[2018-04-09] MEDS: levETIRAcetam 500 mg/5 ml Oral Solution PER TUBE SCH ×2 (09:55→20:10)
[2018-04-09] MEDS: Scopolamine 1.5 mg/72 hour Patch TOP SCH (09:56)
[2018-04-09] MEDS: Cefdinir 300 MG CAP PER TUBE SCH (09:56)
[2018-04-09] MEDS: Enoxaparin Sodium 40 MG/0.4 ML SYRINGE SC SCH (09:56)
[2018-04-09] MEDS: Pantoprazole 40 MG GRANULES PACKET PER TUBE SCH (09:56)
[2018-04-09] MEDS: Metoprolol Tartrate 25 MG TAB PO SCH ×2 (09:56→20:10)
--- NOTE | 2018-04-09 16:11 | PRG ---
DATE OF SERVICE: 04/09/2018 SUBJECTIVE: Ms. Norwood appears awake, but she does not interact with the examiner. She tries to open her eyes, but does not actually do it. Does not appear in distress. OBJECTIVE: VITAL SIGNS: She has had a T-max of 99.7. Temperatures have been going down since. BP 130/87, pulse 93 to 103, and respirations 20. GENERAL: Appears in no distress. HEENT: Dysconjugate eyes. LUNGS: Symmetric air entry. No crackles or wheezing. HEART: S1 and S2 regular rate. ABDOMEN: Soft, not distended. EXTREMITIES: She does not move much her extremities. LABORATORY DATA: White cell count 8.3, hemoglobin 10.9, and platelets 838. Sodium 136, creatinine 0.52. Bilirubin 0.2, AST 33, ALT 57, alkaline phosphatase 163. Microbiology with respiratory virus PCR panel from April 07 with adenovirus and rhinovirus detected. The last chest x-ray is from 2 days ago, shows no acute cardiopulmonary process. The airspace opacities have resolved. ASSESSMENT AND DISCUSSION: Intracranial hemorrhage with severe neurological impairment, trach and gastrostomy tube and either aspiration pneumonia or adenoviral pneumonia. The patient is less likely to have a TECHNOLOGY ANALYST shunt complication. At this point, we would recommend discontinuation of antimicrobial therapy. Job ID: [id number]
[2018-04-09] MEDS: Acetaminophen 325 MG TAB PO PRN (17:00)
--- NOTE | 2018-04-10 06:53 | PDOC.FM ---
- Subjective Subjective: Per nursing staff patient has shown some improvement as tachycardia has been less frequent. NAEO. - Objective Vital Signs & Weight: Vital Signs (12 hours) Temp Pulse Resp BP Pulse Ox 04/10/18 04:00 98.9 F 98 18 124/87 96 04/10/18 00:00 98.3 F 96 18 122/83 92 L 04/09/18 20:00 98.9 F 94 18 134/93 H 93 L Weight Admit Weight 85.757 kg Weight 87.09 kg Most Recent Monitor Data Heart Rate from ECG 99 NIBP 161/64 NIBP BP-Mean 96 Respiration from ECG 13 SpO2 100 I&O: 04/08/18 04/09/18 04/10/18 06:59 06:59 06:59 Intake Total 3955 2041 2103 Balance [id number] Result Diagrams: 04/10/18 07:03 04/06/18 07:19 Phys Exam - Physical Examination Constitutional: NAD HEENT: moist MMs Respiratory: no wheezing, no rales, no rhonchi, clear to auscultation bilateral trace wheezing from trach site; healing well w/ no signs of infection hole nearly completely closed Cardiovascular: RRR, no significant murmur Gastrointestinal: soft, positive bowel sounds PEG tube securely in place Musculoskeletal: no edema left-sided hemiplegia Skin: no rash, normal turgor Dx/Plan (1) Sepsis due to pneumonia Code(s): J18.9 - PNEUMONIA, UNSPECIFIED ORGANISM; A41.9 - SEPSIS, UNSPECIFIED ORGANISM Status: Resolved (2) Chronic anemia Code(s): D64.9 - ANEMIA, UNSPECIFIED Status: Chronic (3) DM2 (diabetes mellitus, type 2) Status: Chronic Qualifiers: 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 insulin use: without halfway use Diabetes mellitus complication status: without complication Qualified Code(s): E11.9 - Type 2 diabetes mellitus without complications (4) GERD (gastroesophageal reflux disease) Code(s): K21.9 - GASTRO-ESOPHAGEAL REFLUX DISEASE WITHOUT ESOPHAGITIS Status: Chronic (5) HTN (hypertension) Code(s): I10 - ESSENTIAL (PRIMARY) HYPERTENSION Status: Chronic (6) ICH (intracerebral hemorrhage) Code(s): I61.9 - NONTRAUMATIC INTRACEREBRAL HEMORRHAGE, UNSPECIFIED Status: Chronic Qualifiers: Intracerebral hemorrhage etiology: nontraumatic Laterality: left (7) Seizure disorder Code(s): G40.909 - EPILEPSY, UNSP, NOT INTRACTABLE, WITHOUT STATUS EPILEPTICUS Status: Chronic (8) Status post craniectomy Code(s): Z98.890 - OTHER SPECIFIED POSTPROCEDURAL STATES Status: Chronic (9) trach and peg Status: Chronic - Plan Plan: Sepsis 2/2 to RLL presumed aspiration pneumonia -Sepsis resolved. Repeat blood & urine Cxs showed only a likely contaminant in 1 /2 cultures. Patient actually clinically improving as she has been afebrile since 04/07/18. -Aspiration PNA, pt at continued risk of aspiration per ST & pulmonology. -IV Antibiotic regimen completed. Will d/c abx per Bakari's recs. Appreciate recommendations. -Will continue peg tube hydration & feeds. -Pt has been stable on the floor & maintaining airway on her own, s/p accidental removal of trach cannula. -Pending local fci placement. Thrombocytosis: - Plts up to 838 yesterday but down to 760 this AM. Likely reactive 2/2 medications vs. acute infection. Will get a peripheral smear today and continue to monitor. Will consider Onc consult vs. outpatient f/u pending results. Hx of craniectomy with QUAD STAYER shunt placement - Aware, Dr. Jeong is pt's neurosurgeon. Chronic Anemia - Aware, Hgb has remained stable within baseline range since admission. HTN -Continue home metoprolol and monitor. GERD -Home pantoprazole Contact dermatitis, resolved -Trach site almost completely closed w/ normal wound healing. Seizure disorder -Resume home keppra Hx of RUE DVT -US negative, prophylactic lovenox DM2 -A1c 4.9 -ACHS accuchecks, SSI PRN. Peg tube - Power Saw Mechanic on board. Bedbound and concern for developing pressure ulcers - PT/OT on board. Wound on buttocks from scratching - WC on board. Dispo: D/c to NH once accepted. Accepted back to previous NH but waiting to hear back from [facility] as well. Will go to [facility] if accepted but otherwise back to previous place likely today. Addendum - Attending - Attending Attestation Date/Time: 04/10/18 6242 I personally evaluated the patient and discussed the management with Dr. Merida. I agree with the History, Examination, Assessment and Plan documented above with any addition or exceptions noted below. The patient remains stable. She has been approved for placement. Ok for d/c
[2018-04-10 07:21] LABS: #Eosinphils 0.2 thou/uL (0.0-0.7); #Lymphocytes 1.7 thou/uL (1.20-3.40); #Monocytes 0.5 thou/uL (0.11-0.59); #Neutrophils 5.3 thou/uL (1.40-6.50); %Basophils 0.6 % (0.0-1.0); %Eosinophils 2.8 % (0.0-10.0); %Lymphocytes 21.8 % (21.0-51.0); %Monocytes 6.4 % (0.0-10.0); %Neutrophils 68.4 % (42.0-75.0); Hemoglobin 11.1 g/dL (12.0-16.0); Mean Corpuscular HGB CONC 31.9 g/dL (32.0-36.0); Mean Corpuscular Hemoglobin 28.9 pg (27.0-31.0); Mean Corpuscular Volume 90.7 fL (78.0-98.0); Mean Platelet Volume 6.5 fL (7.4-10.4); Platelet Count 760 thou/uL (130-400); RBC Distribution Width 13.4 % (11.5-14.5); Red Blood Cell (RBC) Count 3.82 mill/uL (4.20-5.40); White Blood Cell (WBC) Count 7.7 thou/uL (4.8-10.8)
[2018-04-10] MEDS: levETIRAcetam 500 mg/5 ml Oral Solution PER TUBE SCH (07:36)
[2018-04-10] MEDS: Pantoprazole 40 MG GRANULES PACKET PER TUBE SCH (07:37)
[2018-04-10] MEDS: Cefdinir 300 MG CAP PER TUBE SCH (07:37)
[2018-04-10] MEDS: Metoprolol Tartrate 25 MG TAB PO SCH (07:37)
[2018-04-10] MEDS: Enoxaparin Sodium 40 MG/0.4 ML SYRINGE SC SCH (07:38)
--- NOTE | 2018-04-10 08:01 | PQF ---
LENIN NOLASCO MADISON *r [id number] CLINICAL DOCUMENTATION IMPROVEMENT CLARIFICATION FORM: ICD-10 Updated PLEASE DO AN ADDENDUM TO THE PROGRESS NOTE WITH ANY DOCUMENTATION UPDATES OR ADDITIONS AND CARRY THROUGH TO DC SUMMARY. THANK YOU. DATE: 04/10 ATTN: DR. STEFFANY ALAMO/ DR. Maggie JOLLY Please exercise your independent, professional judgment in responding to the clarification form. Clinical indicators are provided on the bottom of this form for your review. Please check appropriate box(s): [ ] Paraplegia Specify: [ ] Non dominant side [ ] Dominant side Status: [ ] Complete [ ] Incomplete [ ] Quadriplegia [ ] Functional Quadriplegia (specify underlying cause) Specify: [ ] Non dominant side [ ] Dominant side [ x ] Other diagnosis __left-sided hemiplegia [ ] Unable to determine In addition, please specify: Present on Admission (POA): [ x ] Yes [ ] No [ ] Unable to determine CLINICAL INDICATORS - SIGNS / SYMPTOMS / LABS PN 03/31 (GILMA): MOSTLY BEDBOUND W/ L UPPER/LOWER PARALYSIS PN 04/03 (JOSELINE): BEDBOUND NURSING ASSESSMENT 03/31: TOTAL ASSISTANCE; CANNOT WALK OR STAND; TRACH COLLAR; INCONTINENT OF URINE & STOOL - DIAPER; SWALLOWING IMPAIRED; VERY LIMITED SENSORY PERCEPTION DIETARY CONSULT 04/01: BOLUS TF JEVITY VIA PEG RISK FACTORS: HX HEMORRHAGIC CVA HX ICH S/P CRANIOTOMY CHRONIC ENCEPHALOPATHY - NONVERBAL TREATMENT: TOTAL ASSISTANCE FOR ALL ADL'S PHYSICAL THERAPY THANK YOU! [place] (This form is maintained as a part of the permanent medical record) 2014 [employer]. All Rights Reserved Juana Cross, RN, BSN [email or web address] Office: [phone] [facility]
[2018-04-10 10:08] LABS: Band 5 % (5-11); Eosinophils 1 % (0-10); Lymphocytes 14 % (21-51); Monocytes 6 % (0-10)
[2018-04-10 10:09] LABS: Large Platelets SLIGHT; Platelet Morphology Comment Appears Increased
[2018-04-10 10:10] LABS: Neutrophil 74 % (42-75); Polychromasia SLIGHT = 2-3 cells (100X) (0-2/hpf)
[2018-04-10 11:42] VITALS: BP 139/94; TEMP 97.7
--- NOTE | 2018-04-10 23:55 | DIS ---
DATE OF ADMISSION: 03/31/2018 DATE OF DISCHARGE: 04/10/2018 RESIDENT: Isrrael June DO ADMITTING ATTENDING: Acosta Kline MD DISCHARGING ATTENDING: Eli Berger MD CONSULTS: 1. Infectious Disease, Dr. Villegas. 2. Pulmonology, Dr. Shoemaker. PROCEDURES: 1. Portable chest x-ray showed right lobe airspace opacity concerning for infection, as well as shunt catheter in place for right hemothorax, tracheostomy tube appears in good position on 03/30. 2. CTA with contrast shows no pulmonary embolism and right lower lobe consolidation atelectasis change. 3. Deep venous thrombosis, right unilateral upper extremity shows no evidence of thrombosis visualized in the right extremities. 4. Portable chest x-ray taken on 04/07/2018 shows similar findings as before, as well as no acute cardiopulmonary process. PRIMARY DIAGNOSIS: Sepsis secondary to right lower lobe pneumonia. SECONDARY DIAGNOSES: History of craniotomy with SHEET ROCK SANDER shunt status post ruptured aneurysm, chronic anemia, hypertension, gastroesophageal reflux disease, contact dermatitis, seizure disorder, history of right upper extremity deep venous thrombosis, diabetes mellitus 2, PEG tube, bed-bound secondary to previous ruptured aneurysm. DISCHARGE MEDICATIONS: 1. Lovenox 40 mg daily subcutaneous. 2. DuoNeb 3 mL q.4 hours p.r.n. wheezing. 3. Keppra 1000 mg per tube b.i.d. 4. Pancrelipase 55215 units per protocol. 5. Scopolamine patch 1.5 mg topical q.3 days. 6. Sodium bicarb 650 mg per tube per protocol. 7. Tylenol suppository 650 mg q.4 hours p.r.n. pain/fever. 8. Dulcolax 10 mg per tube p.r.n. constipation. 9. Dextrose 12.5 mg IV p.r.n. hypoglycemia. 10. Glucagon one vial 1 mg IM. 11. Robinul 1 mg per tube t.i.d. 12. Hydroxyzine 25 mg per tube q.i.d. p.r.n. agitation. 13. Metoprolol 12.5 mg per tube b.i.d. 14. Modafinil 100 mg per tube b.i.d. DISCONTINUED MEDICATIONS: Cefdinir. BRIEF HISTORY OF PRESENT ILLNESS/HOSPITAL COURSE: This is a 48-year-old female, who presented as a transfer from the [facility] for increased work of breathing, fever, altered mental status. In the ER, the patient received vancomycin, cefepime 2 g and fluid boluses of unknown quantity, Tylenol 650 mg. The patient was admitted to the hospital. Pulmonology and Infectious Disease were consulted and their recommendations were appreciated. The patient was treated for aspiration pneumonia with vancomycin and cefepime initially. The patient had poor reaction concerning for red man syndrome despite slower transfusion. The patient was switched from vancomycin to linezolid. The patient was found to have some improvement per family throughout her hospital stay including at the time of discharge, talking and responding appropriately to questions asked, nearing baseline. At the time of discharge, the patient's anemia improved with hemoglobin of 11.1. The patient was taken off oral antibiotics due to concern that the pneumonia was caused by antivirus and the patient's fevers were only low-grade. After discontinuing antibiotics, the patient remained afebrile prior to discharge. During patient's stay, the patient's trach cannula was accidentally removed possibly by patient, however, this was unwitnessed. Pulmonology thought unfit to try to place another one and at that time, the tracheostomy incision was too constricted to allow for simple replacement of the current tube. In addition, PT was consulted due to her lack of movement and worked with her daily. Wound Care was consulted due to patient scratching her buttocks excessively causing an open lesion. The patient was discharged to [facility] and this plan was discussed with the patient's aunt, who was present during her treatment. DISPOSITION: Stable. DISCHARGE INSTRUCTIONS: 1. Location: [place]. 2. Diet: Jevity per tube per protocol. 3. Activity: As tolerated. 4. Followup: Follow up with PCP in 1 to 2 weeks. Job ID: [id number]
== END 2018-04-10 13:46 | DRG 871 ==
LOC: ERS 20:27 → IMCU/EMU 03-31 01:06 → T4-B 04-03 18:10
PROVIDERS: ADMIT Student in an Organized Health Care Education/Training Program; ATTEND Student in an Organized Health Care Education/Training Program
DX: A41.9 Sepsis, unspecified organism (principal); J69.0 Pneumonitis due to inhalation of food and vomit; G93.49 Other encephalopathy; I69.154 Hemiplegia and hemiparesis following nontraumatic intracerebral hemorrhage affecting left non-dominant side; K21.9 Gastro-esophageal reflux disease without esophagitis; I10 Essential (primary) hypertension; L23.5 Allergic contact dermatitis due to other chemical products; G40.909 Epilepsy, unspecified, not intractable, without status epilepticus; E11.9 Type 2 diabetes mellitus without complications; J45.909 Unspecified asthma, uncomplicated; I69.198 Other sequelae of nontraumatic intracerebral hemorrhage; D64.9 Anemia, unspecified; Z93.0 Tracheostomy status; Z93.1 Gastrostomy status; B34.9 Viral infection, unspecified; S30.810A Abrasion of lower back and pelvis, initial encounter; Z22.39 Carrier of other specified bacterial diseases; Z98.2 Presence of cerebrospinal fluid drainage device; Z86.718 Personal history of other venous thrombosis and embolism; Z87.891 Personal history of nicotine dependence; Z88.1 Allergy status to other antibiotic agents; X58.XXXA Exposure to other specified factors, initial encounter
CPT/HCPCS: 36415; 36416; 51701; 71045; 71275; 80048; 80053; 80202; 81001; 81003; 81015; 82550; 83036; 83605; 84145; 84484; 85025; 85520; 87040; 87086; 87149; 87631; 87633; 93005; 94640; A4353; J0692; J1650; J1956; J2020; J3370; J7050; J7620; Q0163; Q9966

== ENCOUNTER 2018-04-11 13:04 | Emergency (ER) | payer MEDICARE, MEDICAID ==
[2018-04-11 13:52] LABS: #Lymphocytes 2.1 thou/uL (1.20-3.40); #Monocytes 0.7 thou/uL (0.11-0.59); #Neutrophils 6.4 thou/uL (1.40-6.50); %Basophils 0.4 % (0.0-1.0); %Eosinophils 0.4 % (0.0-10.0); %Lymphocytes 22.7 % (21.0-51.0); %Monocytes 7.7 % (0.0-10.0); %Neutrophils 68.7 % (42.0-75.0); Hemoglobin 11.5 g/dL (12.0-16.0); Mean Corpuscular HGB CONC 30.9 g/dL (32.0-36.0); Mean Corpuscular Hemoglobin 28.2 pg (27.0-31.0); Mean Corpuscular Volume 91.4 fL (78.0-98.0); Mean Platelet Volume 6.8 fL (7.4-10.4); Platelet Count 799 thou/uL (130-400); RBC Distribution Width 13.6 % (11.5-14.5); Red Blood Cell (RBC) Count 4.07 mill/uL (4.20-5.40); White Blood Cell (WBC) Count 9.3 thou/uL (4.8-10.8)
[2018-04-11 14:07] LABS: ALT (SGPT) 69 U/L (8-55); AST (SGOT) 38 U/L (5-34); Albumin 3.8 g/dL (3.5-5.0); Alkaline Phosphatase 166 U/L (40-150); Anion Gap 17 mmol/L (10-20); BUN (Urea Nitrogen) 18 mg/dL (7.0-18.7); Bilirubin, Total 0.4 mg/dL (0.2-1.2); Calc. Creatinine Clearance 0 mL/min (70-130); Calcium 9.7 mg/dL (7.8-10.44); Carbon Dioxide 21 mmol/L (22-29); Chloride 102 mmol/L (98-107); Estimated GFR-MDRD Greater than 90; Glucose 120 mg/dL (70-105); Potassium 4.3 mmol/L (3.5-5.1); Protein, Total 8.8 g/dL (6.0-8.3); Sodium 136 mmol/L (136-145)
[2018-04-11 14:16] LABS: Bilirubin Negative (Negative); Blood, Urine Negative (Negative); Clarity CLEAR (Clear); Glucose, Urine (Dipstick) Negative (Negative); Leukocyte Negative (Negative); Nitrite Negative (Negative); Protein, Urine (Dipstick) 100 mg/dL (Neg-Trace); Specific Gravity, Urine 1.032 (1.002-1.036); Urobilinogen 0.2 mg/dL (0.2-1.0); pH, Urine 5.5 (5.0-9.0)
[2018-04-11 14:20] LABS: Bacteria/HPF None Seen HPF (None Seen); Hyaline Casts/LPF 7-10 HYALINE CAST LPF (0-3 Hyaline); Pathc Cast-AUWi Flag 1.22 (0-2.49); Squamous Epithelial 0-3 HPF (0-3); WBC/HPF 0-3 HPF (0-3)
--- NOTE | 2018-04-11 15:10 | RAD ---
RADIOGRAPH SHUNTOGRAM: History: Altered mental status. Technique: AP head, cervical spine, chest, abdomen, and pelvis obtained. FINDINGS: There is a right sided ventriculoperitoneal shunt in place. The course of the RESIDENTIAL MORTGAGE MANAGER shunt is unremarkabl e with no evidence of kinks. The distal aspect is in right lower quadrant of the abdomen. A gastrosto my tube is also in place. POS: [facility]
--- NOTE | 2018-04-11 15:18 | CT ---
CT BRAIN: Date: 04-11-18 Comparison: 03-27-18 History: Altered mental status. FINDINGS: Noncontrast enhanced CT images of the brain demonstrate a patient with a previous right sided craniec mirian. The patient has a right sided ventriculoperitoneal shunt in place. There is edema and lateral displacement of the edematous right posterior frontal and portions of the right anterior temporal lobe. The right lateral ventricle is asymmetrically enlarged but not signific antly changed since the previous comparison CT. No acute intracranial lesion seen. No increased devel oping hydrocephalus is seen. IMPRESSION: Patient with right sided craniectomy. Old areas of infarction again seen. No significant interval marita nge seen. POS: [facility]
== END 2018-04-11 15:28 ==
LOC: ERS 13:04
DX: G93.9 Disorder of brain, unspecified (principal); E11.9 Type 2 diabetes mellitus without complications; K21.9 Gastro-esophageal reflux disease without esophagitis; I10 Essential (primary) hypertension; J45.909 Unspecified asthma, uncomplicated; G40.909 Epilepsy, unspecified, not intractable, without status epilepticus; F31.9 Bipolar disorder, unspecified; F41.9 Anxiety disorder, unspecified; Z79.899 Other long term (current) drug therapy
CPT/HCPCS: 51701; 70450; 75809; 80053; 81003; 81015; 83605; 84484; 85025; 87040; 87086; 87804; 93005; A4353

== ENCOUNTER 2018-04-21 18:04 | Inpatient (IN) | payer MEDICARE, MEDICAID ==
[~2018-04-21 18:04] MED LIST: ISOVUE-370 76%-LOCM 1 ML ONE
[2018-04-21] MEDS ORDERED: Acetaminophen 650 MG Suppository ONE (18:20)
[2018-04-21] MEDS ORDERED: Cefepime 2 GM VIAL ONE (18:53)
[2018-04-21 18:54] LABS: Base Excess-Venous 2.7 mmol/L (-2.0 to 3.0); Bicarbonate (HCO3v) 23.2 mmol/L (22.0-28.0); CO2 Tension (PvCO2) 24.3 mmHg (40.0-50.0); Calcium, Ionized 0.96 mmol/L (See Comments:); Chloride 99 mmol/L (98-107); Hemoglobin - Calc 12.5 g/dL (12.0-16.0); O2 Tension (PvO2) 93.2 mmHg (35.0-45.0); Potassium 4.1 mmol/L (3.5-5.1); Sodium 133 mmol/L (138-145); pH (Venous) 7.589 (7.320-7.430); vO2 Saturation-calc 98.5 % (60.0-85.0)
[2018-04-21 18:56] LABS: #Eosinphils 0.1 thou/uL (0.0-0.7); #Lymphocytes 1.8 thou/uL (1.20-3.40); #Monocytes 0.6 thou/uL (0.11-0.59); #Neutrophils 8.4 thou/uL (1.40-6.50); %Basophils 0.1 % (0.0-1.0); %Eosinophils 0.9 % (0.0-10.0); %Lymphocytes 16.2 % (21.0-51.0); %Monocytes 5.8 % (0.0-10.0); %Neutrophils 77.1 % (42.0-75.0); Hemoglobin 10.9 g/dL (12.0-16.0); Mean Corpuscular HGB CONC 31.6 g/dL (32.0-36.0); Mean Corpuscular Hemoglobin 27.9 pg (27.0-31.0); Mean Corpuscular Volume 88.3 fL (78.0-98.0); Mean Platelet Volume 7.3 fL (7.4-10.4); Platelet Count 404 thou/uL (130-400); Red Blood Cell (RBC) Count 3.91 mill/uL (4.20-5.40); White Blood Cell (WBC) Count 10.9 thou/uL (4.8-10.8)
[2018-04-21 18:59] LABS: Bilirubin Negative (Negative); Blood, Urine Negative (Negative); Clarity CLEAR (Clear); Glucose, Urine (Dipstick) Negative (Negative); Leukocyte Negative (Negative); Nitrite Negative (Negative); Protein, Urine (Dipstick) Trace mg/dL (Neg-Trace); Specific Gravity, Urine 1.011 (1.002-1.036)
[2018-04-21] MEDS ORDERED: Linezolid 600 MG in Premix Bag 1 BAG IVPB ONE (19:15)
[2018-04-21 19:18] LABS: ALT (SGPT) 67 U/L (8-55); AST (SGOT) 17 U/L (5-34); Albumin 3.7 g/dL (3.5-5.0); Alkaline Phosphatase 150 U/L (40-150); Anion Gap 15 mmol/L (10-20); BUN (Urea Nitrogen) 8 mg/dL (7.0-18.7); Bilirubin, Total 0.5 mg/dL (0.2-1.2); Calc. Creatinine Clearance 0 mL/min (70-130); Calcium 9.6 mg/dL (7.8-10.44); Carbon Dioxide 23 mmol/L (22-29); Chloride 98 mmol/L (98-107); Estimated GFR-MDRD Greater than 90; Globulin 4.5 g/dL (2.4-3.5); Glucose 130 mg/dL (70-105); Potassium 4.3 mmol/L (3.5-5.1); Protein, Total 8.2 g/dL (6.0-8.3); Sodium 132 mmol/L (136-145)
--- NOTE | 2018-04-21 19:41 | RAD ---
AP CHEST: History: Fever, tachycardia. Date: 04-21-18 Comparison: 04-07-18 FINDINGS: AP chest demonstrates a right sided ventriculoperitoneal shunt in place. There is mild elevation of t he right hemidiaphragm. The lungs are well aerated. No evidence of acute intrathoracic abnormality se en. No evidence of effusions, pneumonia, or pneumothorax seen. IMPRESSION: No evidence of acute intrathoracic abnormality seen. POS: [facility]
--- NOTE | 2018-04-21 19:54 | CT ---
CT BRAIN: History: Patient with brain surgery, rupture of aneurysm. Technique: Noncontrast enhanced CT images of the brain obtained from base of the skull through the ve rtex. Brain and bone windows obtained. Comparison: 04-11-18 FINDINGS: Images demonstrate a ventriculoperitoneal shunt in place. The patient has had a right sided craniecto my. There is extensive encephalomalacic changes seen in much of the right frontal lobe, right tempora l lobe and right anterior parietal lobes. There is continued left to right midline shift. Large aneur ysm coil was seen in the right hemisphere extending through the craniectomy defect. No evidence of acute intracranial hemorrhages or masses seen. IMPRESSION: Stable CT appearance of the brain in a patient with craniectomy and extensive encephalomalacic change s. POS: [facility]
[2018-04-21] MEDS ORDERED: Bacitracin Zinc 1 Packet ONE (22:48)
[2018-04-21] MEDS ORDERED: Acetaminophen 650 MG Suppository PR PRN (23:29)
--- NOTE | 2018-04-21 23:31 | CT ---
CONTRAST ENHANCED CTA CHEST: History: Fever, tachycardia. Technique: Contrast enhanced CTA chest performed. 2D and 3D reconstructed images performed on an [employer] 3D workstation. FINDINGS: Images demonstrate a ventriculoperitoneal shunt in place. Areas of atelectasis seen in the right lower lobe. No evidence of lymphadenopathy seen. No evidence of pleural or pericardial effusion seen. The aorta is unremarkable. No evidence of filling defects seen to suggest pulmonary emboli. There is abnormal soft tissue density in the right adrenal gland. This may represent a right adrenal mass measuring approximately 2.2 x 3.3 cm. IMPRESSION: 1. Right adrenal mass. This lesion was present on previous CT from 01-02-18. 2. No evidence of pulmonary emboli. POS: [facility]
--- NOTE | 2018-04-22 11:38 | CON ---
DATE OF CONSULTATION: 04/22/2018 REASON FOR CONSULTATION: Possible aspiration. 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 Subsequently, she developed a skin reaction, which was felt to be secondary to Dilantin hypersensitivity reaction and on March 31, [facility] with tachypnea, with fever and abnormal chest x-ray. We felt that this was most likely due to aspiration pneumonia and she did have a CT of chest, which demonstrated no evidence of pulmonary embolism and a mild right lower lobe consolidation and some atelectatic changes in the right upper lobe. The patient was given broad-spectrum antimicrobial coverage and the respiratory virus from April 07 demonstrated adenovirus and rhinovirus, and the airspace opacities resolved. So, we felt that either she had aspiration pneumonia or she had adenoviral pneumonia, a PUBLIC SPACE ATTENDANT shunt complication was felt to be less likely. The patient has had readmitted now a few days after discharge with elevated blood pressure, chest congestion, hypertension, and tachycardia. Vital signs with a temperature 101, respiratory rate 22, O2 saturation 100, and BP 130/70. She was responsive, but could not establish eye contact. Lungs with no respiratory distress. Rhonchi in the bilateral upper lobes. She was voiding spontaneously and had a gastrostomy tube in place with normal-appearing exit site. She had a CT of chest again repeated with angiogram and no evidence of pulmonary embolism noted and areas of atelectasis seen in the right lower lobe as previously noted. No evidence of pulmonary emboli. Chest x-ray with no abnormalities identified. Brain CT with stable appearance. Initial labs with a white cell count 10.9, hemoglobin 10.9, and platelets 404 with 77% neutrophils. Sodium 132, creatinine 0.55, ALT 67, alkaline phosphatase and AST within normal limits, and bilirubin normal. Lactic acid was 1.8 and globulin 4.5. Troponin normal. Albumin 3.7. Urinalysis was completely normal. We have 2 sets of blood cultures that are pending at this time. An influenza A and B direct antigen negative. Currently, Ms. Norwood is lying on her right lateral decubitus. She appears to be awake. She will follow some simple commands. For example, she will open her mouth when asked, but there is the extent of her ability to follow commands due to her severe neurological impairment and quadriparesis. She does move her right lower extremity a little bit. There has been no reported diarrhea in the [facility]. PAST MEDICAL HISTORY: Includes intracranial bleed from aneurysm, which required craniectomy; PUBLIC SPACE ATTENDANT shunt placement; aspiration pneumonia; adenoviral pneumonia; swallowing dysfunction requiring PEG feedings; Dilantin associated hypersensitivity reaction; seizure activity; and cholecystectomy. FAMILY HISTORY: Noncontributory. SOCIAL HISTORY: Former smoker. ALLERGIES: ABOVE WITH DILANTIN ASSOCIATED ERYTHRODERMA. MEDICATIONS: Medication list basically, she got 1 dose of cefepime and linezolid, but now she is on acetaminophen only. PHYSICAL EXAMINATION: VITAL SIGNS: T-max 98.6, blood pressure 130/79, and pulse 117. GENERAL: She appears pretty much similar to what her status was when she was ready to be discharged from the hospital last time. SKIN: She has no evidence of areas of skin breakdown. 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 She has a peripheral IV access. No lymphadenopathy. HEENT: Ocular movements are disconjugate. Pupils are reactive about 2 mm. The oral cavity is moist. She opens the mouth on command. Numerous teeth in place with some decay and gum disease. NECK: Stiff to all directions. LUNGS: With quite reduced air excursions. No wheezing. HEART: S1 and S2. Regular rate. ABDOMEN: Soft and not distended. No guarding noted. No bladder distention noted. EXTREMITIES: She is able to move right lower extremity. The upper extremities, she does not move very well and she is completely paralyzed in the left lower extremity. NEUROLOGIC: She is unable to communicate verbally, very limited ability to follow commands. LABORATORY DATA: White cell count is at 10.9, hemoglobin 10.9, and MCV 88. Other labs have been discussed above and the radiology studies noted above. ASSESSMENT: 1. Prior intracerebral hemorrhage associated with aneurysm, status post craniectomy and ventriculoperitoneal shunt placement, severe neurological impairment. 2. Episodes of aspiration. 3. Recent adenoviral pneumonia. 4. Tachypnea and tachycardia. DISCUSSION: The differential diagnosis includes another episode of aspiration, which led to the patient's symptoms. Thromboembolism appears to be less likely. The patient has intertriginous maceration and eruption in the perineal skin, which should be treated with Diflucan, which can be administered via gastrostomy tube. Usually gastrostomy tube feedings are typically not associated with infectious pneumonitis, mostly just a brief chemical pneumonitis, which is usually mild. I agree with withholding antimicrobial therapy at this point in time and monitor her clinical course. Fortunately, she will continue to display these episodes going forward intraabdominal inflammatory process, other bone and joint processes are less likely, PUBLIC SPACE ATTENDANT shunt inflammatory process with meningitis is unlikely. Job ID: [id number]
[2018-04-22] MEDS ORDERED: Bisacodyl 5 MG TAB PO PRN (11:44)
[2018-04-22] MEDS ORDERED: hydrOXYzine 25 MG TAB PER TUBE PRN (12:05)
[2018-04-22] MEDS: Scopolamine 1.5 mg/72 hour Patch TOP SCH (12:27)
[2018-04-22] MEDS ORDERED: Metoprolol Tartrate 25 MG TAB PER TUBE SCH (15:00)
[2018-04-22] MEDS: Glycopyrrolate 1 MG TAB PER TUBE SCH ×2 (16:30→21:04)
[2018-04-22] MEDS: levETIRAcetam 500 mg/5 ml Oral Solution PER TUBE SCH (20:55)
[2018-04-22] MEDS: Metoprolol Tartrate 25 MG TAB PER TUBE SCH (20:55)
[2018-04-23] MEDS: Acetaminophen 325 MG TAB PO SCH ×5 (00:46→23:19)
--- NOTE | 2018-04-23 01:08 | HP ---
CHIEF COMPLAINT: Altered mental status, elevated blood pressure and tachycardia. HISTORY OF PRESENT ILLNESS: Ms. Norwood is a 48-year-old female, who was recently discharged from the hospital after she had a pneumonia, was found in [facility] with change in mental status, she was more lethargic than usual. She was initially nonverbal and she was tachycardic and hypertensive. Also had some chest congestion and coughing. She did not have any fever at the [facility]. Because of change in condition, the patient was sent to the hospital. In the ER, the patient was found to have a fever of 101, but there is no clear source of any infection. Urine was normal. Chest x-ray, no evidence of pneumonia. The patient did receive some cefepime and Zyvox. She was also given IV fluids and admitted for further evaluation and management. The patient was recently treated for adenovirus pneumonia. PAST MEDICAL HISTORY: 1. Intracranial hemorrhage, status post craniotomy. 2. Diabetes. 3. Gastroesophageal reflux disease. 4. Hypertension. 5. History of bronchial asthma. 6. History of seizure disorder. 7. History of adenovirus pneumonia. PAST SURGICAL HISTORY: Status post repair of bifurcation aneurysm, status post cholecystectomy, status post PEG tube placement. CURRENT MEDICATIONS: The patient is on; 1. Dulcolax p.r.n. 2. Lovenox 40 mg daily. 3. Atarax p.r.n. 4. DuoNebs q.i.d. p.r.n. 5. Keppra 500 mg b.i.d. 6. Metoprolol 12.5 b.i.d. 7. Omeprazole 40 mg daily. 8. Scopolamine patch 1.5 mg q.3 days. 9. Sodium bicarbonate 650 per tube per protocol. 10. Tube feeding Jevity 1.2. ALLERGIES: CODEINE, SULFATE, VANCOMYCIN, ZOSYN. FAMILY HISTORY: Nothing contributory. SOCIAL HISTORY: The patient lives at [facility]. No history of smoking. No history of drug abuse. REVIEW OF SYSTEMS: Unable to obtain because of mental status. The patient is nonverbal and not able to give me any history. PHYSICAL EXAMINATION: GENERAL: The patient is awake, not very alert. VITAL SIGNS: Temperature 101, respirations 20, blood pressure 120/70, pulse 107. HEENT: Head is normocephalic and atraumatic. Pupils are equal and reactive. Nasopharynx is pale and dry. Hard and soft palate. No lesions. Skin tags indicated. NECK: Supple. No JVD. LUNGS: Few rhonchi present bilaterally. HEART: S1 and S2. Regular. ABDOMEN: Soft. No distention. No tenderness. Normal bowel sounds. RECTAL: No symptoms. CENTRAL NERVOUS SYSTEM: Nonfocal. No new deficits. LABORATORY DATA: CBC showed WBC 10.9, hemoglobin 10.9, hematocrit 34, platelets 404. Metabolic panel; sodium 130, potassium 4.2, chloride 95, CO2 23, BUN 8, creatinine 0.5, glucose 113. Urinalysis negative. IMAGING STUDIES: Chest x-ray negative. CT angio chest negative for pulmonary embolism. CT of the brain showed stable appearance. EKG shows sinus tachycardia with heart rate of 118. No acute ST-T changes seen. ASSESSMENT: 1. Fever, rule out sepsis, etiology not clear 2. Cough, congestion, possible bronchitis. 3. Encephalopathy, metabolic. 4. Status post craniotomy for intracerebral hemorrhage. 5. Status post aspiration pneumonia, status post adenovirus pneumonia. PLAN: 1. Vital signs q.4. 2. Activity as tolerated. 3. Allergies, vancomycin, Zosyn, codeine. 4. Hep-Lock. 5. Continue tube feeding. 6. Continue [facility] medications. 7. Tylenol p.r.n. 8. Infectious disease consult. 9. We will follow the cultures. 10. Gemini rogers p.r.n. Job ID: [id number] [facility]
[2018-04-23] MEDS: levETIRAcetam 500 mg/5 ml Oral Solution PER TUBE SCH ×2 (08:57→20:55)
[2018-04-23] MEDS: Pantoprazole 40 MG GRANULES PACKET PER TUBE SCH (08:57)
[2018-04-23] MEDS: Enoxaparin Sodium 40 MG/0.4 ML SYRINGE SC SCH (08:57)
[2018-04-23] MEDS: Glycopyrrolate 1 MG TAB PER TUBE SCH ×3 (08:58→20:55)
[2018-04-23] MEDS: Metoprolol Tartrate 25 MG TAB PER TUBE SCH ×2 (08:59→20:55)
[2018-04-23 13:47] LABS: #Eosinphils 0.9 thou/uL (0.0-0.7); #Lymphocytes 0.7 thou/uL (1.20-3.40); #Monocytes 0.4 thou/uL (0.11-0.59); #Neutrophils 5.3 thou/uL (1.40-6.50); %Basophils 0.1 % (0.0-1.0); %Eosinophils 11.8 % (0.0-10.0); %Lymphocytes 9.8 % (21.0-51.0); %Monocytes 4.9 % (0.0-10.0); %Neutrophils 73.3 % (42.0-75.0); Mean Corpuscular HGB CONC 31.2 g/dL (32.0-36.0); Mean Corpuscular Hemoglobin 27.4 pg (27.0-31.0); Mean Corpuscular Volume 87.9 fL (78.0-98.0); Mean Platelet Volume 7.6 fL (7.4-10.4); Platelet Count 366 thou/uL (130-400); RBC Distribution Width 13.7 % (11.5-14.5); Red Blood Cell (RBC) Count 3.66 mill/uL (4.20-5.40); White Blood Cell (WBC) Count 7.2 thou/uL (4.8-10.8)
--- NOTE | 2018-04-23 15:50 | PQF ---
CLINICAL DOCUMENTATION IMPROVEMENT CLARIFICATION FORM: ICD-10 Updated PLEASE DO AN ADDENDUM TO THE PROGRESS NOTE WITH ANY DOCUMENTATION UPDATES OR ADDITIONS AND CARRY THROUGH TO DC SUMMARY. THANK YOU. DATE: 04/23/18 ATTN: DR. DAVIDSON Please exercise your independent, professional judgment in responding to the clarification form. Clinical indicators are provided on the bottom of this form for your review Please check appropriate box(s) to clarify if the following diagnosis has been ruled in or ruled out: SEPSIS [ ] Ruled in diagnosis [ ] Continue to treat [ ] Resolved [ ] Ruled out diagnosis [ ] Other diagnosis [y ] Unable to determine In addition, please specify: Present on Admission (POA): [ y] Yes [ ] No [ ] Unable to determine For continuity of documentation, please document condition throughout progress notes and discharge summary. Thank You. CLINICAL INDICATORS - SIGNS / SYMPTOMS / LABS ER NOTE: "SEPSIS" TEMP 101 PULSE 123 RR 21 WBC 10.9 RISKS: RESIDENT AT RESIDENTIAL RECENT SURGERY FOR BRAIN ANEURYSM RECENT HISTORY OF PNEUMONIA TREATMENT: IV CEFEPIME (ER) IV FLUIDS (ER) CARDIAC MONITORING ID CONSULT (This form is maintained as a part of the permanent medical record) 2014 [employer]. All Rights Reserved [email or web address] Office: [phone] [facility]
[2018-04-24] MEDS: Acetaminophen 325 MG TAB PO SCH ×4 (04:51→23:09)
[2018-04-24] MEDS: Pantoprazole 40 MG GRANULES PACKET PER TUBE SCH (09:12)
[2018-04-24] MEDS: Metoprolol Tartrate 25 MG TAB PER TUBE SCH ×2 (09:12→20:18)
[2018-04-24] MEDS: levETIRAcetam 500 mg/5 ml Oral Solution PER TUBE SCH ×2 (09:12→20:18)
[2018-04-24] MEDS: Glycopyrrolate 1 MG TAB PER TUBE SCH ×3 (09:13→20:18)
[2018-04-24] MEDS: Enoxaparin Sodium 40 MG/0.4 ML SYRINGE SC SCH (09:14)
[2018-04-24] MEDS: Acetaminophen 325 MG TAB PER TUBE PRN ×2 (17:09→23:04)
[2018-04-25] MEDS: Acetaminophen 325 MG TAB PO SCH ×4 (05:44→23:47)
[2018-04-25] MEDS: Pantoprazole 40 MG GRANULES PACKET PER TUBE SCH (08:36)
[2018-04-25] MEDS: Glycopyrrolate 1 MG TAB PER TUBE SCH ×3 (08:36→21:29)
[2018-04-25] MEDS: Acetaminophen 325 MG TAB PER TUBE PRN (08:36)
[2018-04-25] MEDS: Metoprolol Tartrate 25 MG TAB PER TUBE SCH ×2 (08:36→21:29)
[2018-04-25] MEDS: levETIRAcetam 500 mg/5 ml Oral Solution PER TUBE SCH ×2 (08:37→21:29)
[2018-04-25] MEDS: Enoxaparin Sodium 40 MG/0.4 ML SYRINGE SC SCH (08:37)
[2018-04-25] MEDS: Scopolamine 1.5 mg/72 hour Patch TOP SCH (11:21)
[2018-04-25 11:38] VITALS: BMI 31.4
[2018-04-26] MEDS: Acetaminophen 325 MG TAB PO SCH ×2 (05:06→12:44)
[2018-04-26] MEDS ORDERED: Sodium Chloride 0.9% 10 ML ONE (07:57)
[2018-04-26] MEDS: Enoxaparin Sodium 40 MG/0.4 ML SYRINGE SC SCH (09:34)
[2018-04-26] MEDS: Glycopyrrolate 1 MG TAB PER TUBE SCH ×2 (09:35→15:48)
[2018-04-26] MEDS: Pantoprazole 40 MG GRANULES PACKET PER TUBE SCH (09:35)
[2018-04-26] MEDS: Metoprolol Tartrate 25 MG TAB PER TUBE SCH (09:35)
[2018-04-26] MEDS: levETIRAcetam 500 mg/5 ml Oral Solution PER TUBE SCH (09:35)
[2018-04-26 12:43] VITALS: BP 135/75; TEMP 97.7
--- NOTE | 2018-04-26 16:03 | PRG ---
DATE OF SERVICE: 04/26/2018 SUBJECTIVE: Ms. Norwood does not appear in distress. She has her eyes open. Has hard time interacting with the examiner. OBJECTIVE: VITAL SIGNS: T-max 99.5, blood pressure 135/75. NEUROLOGIC: The same neurological status as previously noted quadriparesis. Moves a little better the right lower extremity. Pupils are equal. Gaze preference to the right. LUNGS: Symmetric, clear breath sounds. HEART: S1 and S2. Regular rate. LABORATORY DATA: White cell count 7.2, hemoglobin 10. Creatinine has not been repeated. Microbiology is negative thus far the next 48 hours. ASSESSMENT AND DISCUSSION: Intracerebral hemorrhage with aneurysm, severe neurological impairment after craniectomy, ventriculoperitoneal shunt placement, episodes of aspiration, and recent adenoviral pneumonia and it looks like she had another episode of aspiration. Thromboembolism has been ruled out and it does not look like she is going to require antimicrobial therapy at this point, the patient will be continuing to be at risk for those episodes due to her neurological swallowing dysfunction. Job ID: [id number] [facility]
--- NOTE | 2018-04-29 08:39 | DIS ---
DATE OF ADMISSION: 04/21/2018 DATE OF DISCHARGE: 04/26/2018 ADMITTING DIAGNOSES: 1. Fever rule out sepsis, etiology not clear. 2. Cough, congestion possible bronchitis. 3. Encephalopathy, metabolic. 4. Status post craniotomy for intracerebral hemorrhage. 5. Status post history of aspiration pneumonia. 6. Status post adenovirus pneumonia. FINAL DIAGNOSES: 1. Fever, resolved. No evidence of pneumonia. Cultures negative. 2. Tachypnea and tachycardia, resolved. 3. History of recent adenovirus pneumonia. 4. History of aspiration. 5. Status post craniotomy for cerebral hemorrhage with aneurysm. BRIEF SUMMARY OF HOSPITAL COURSE: Ms. Norwood is a 48-year-old female admitted because of fever. The patient has some cough, congestion, as well as tachycardia and tachypneic, the patient monitored. Cultures showed the patient was recently treated for aspiration pneumonia as well as adenovirus pneumonia, but after admission to the hospital, she was having fever few times. Her temperature is around 99 and the Infectious Disease consult was done, the patient was seen by Dr. Villegas. We suggested no antibiotics for the time being, just to monitor the fever and follow the cultures. Both blood cultures and urine cultures were negative. The patient tolerated diet very well. No fever. In view of that, the [facility] Thromboembolism was ruled out. PHYSICAL EXAMINATION: GENERAL: At the time of discharge, she was stable. VITAL SIGNS: Stable. LUNGS: Clear. HEART: Heart sounds regular. ABDOMEN: Soft, nontender. Bowel sounds present. DISCHARGE MEDICATIONS: Include; 1. Robinul 1 mg t.i.d. via the PEG tube. 2. Keppra solution 500 mg b.i.d. 3. Scopolamine patches 1.5 mg t.i.d. q.3 days. 4. Dulcolax p.r.n. 5. Sodium bicarbonate 650 p.r.n. 6. DuoNebs q.i.d. p.r.n. 7. Metoprolol 12.5 mg b.i.d. 8. Omeprazole 40 mg daily. 9. Tube feeding Jevity 1.2. 10. Atarax p.r.n. 11. Tylenol p.r.n. The [facility]. Job ID: [id number]
== END 2018-04-26 16:35 | DRG 864 ==
LOC: ERS 18:04 → 2NO 21:48
PROVIDERS: ADMIT Internal Medicine; ATTEND Internal Medicine
DX: R50.9 Fever, unspecified (principal); G93.41 Metabolic encephalopathy; G82.50 Quadriplegia, unspecified; E11.9 Type 2 diabetes mellitus without complications; K21.9 Gastro-esophageal reflux disease without esophagitis; I10 Essential (primary) hypertension; J45.909 Unspecified asthma, uncomplicated; G40.909 Epilepsy, unspecified, not intractable, without status epilepticus; L30.4 Erythema intertrigo; Z79.01 Long term (current) use of anticoagulants; Z87.01 Personal history of pneumonia (recurrent); Z79.899 Other long term (current) drug therapy; Z88.2 Allergy status to sulfonamides; Z88.8 Allergy status to other drugs, medicaments and biological substances; Z88.1 Allergy status to other antibiotic agents; Z93.1 Gastrostomy status; Z86.79 Personal history of other diseases of the circulatory system; Z98.2 Presence of cerebrospinal fluid drainage device; Z98.890 Other specified postprocedural states
CPT/HCPCS: 36415; 36416; 51701; 70450; 71045; 71275; 80053; 81003; 82330; 82803; 83605; 84484; 85025; 85379; 87040; 87086; 87804; 93005; 96361; 96365; 96366; 96367; A4353; J0692; J1650; J2020; Q9966

== ENCOUNTER 2018-05-02 07:58 | Emergency (ER) | payer MEDICARE, MEDICAID ==
--- NOTE | 2018-05-02 08:44 | CT ---
CT BRAIN WITHOUT CONTRAST ENHANCEMENT: History: Fall from bed with head injury. Comparison: 04-21-18 FINDINGS: The degree of dilatation of the lateral ventricles, particularly the right lateral ventricle is a sta ble finding. A right sided craniectomy is seen with bulging of the brain through the craniectomy. Thi s is also a stable finding. A ventriculoperitoneal shunt tube passes through the right occipital horn region. The tip of the tube is medial to the horn. A metallic clip is also seen in the region of the craniectomy defect. I do not see any signs of hemorrhage or acute change since the previous exam. IMPRESSION: Stable exam. POS: [facility]
[2018-05-02 09:49] LABS: #Lymphocytes 1.5 thou/uL (1.20-3.40); #Monocytes 0.5 thou/uL (0.11-0.59); #Neutrophils 8.2 thou/uL (1.40-6.50); %Basophils 0.1 % (0.0-1.0); %Eosinophils 0.5 % (0.0-10.0); %Lymphocytes 14.2 % (21.0-51.0); %Monocytes 5.1 % (0.0-10.0); %Neutrophils 80.2 % (42.0-75.0); Hemoglobin 11.8 g/dL (12.0-16.0); Mean Corpuscular HGB CONC 31.3 g/dL (32.0-36.0); Mean Corpuscular Hemoglobin 26.5 pg (27.0-31.0); Mean Corpuscular Volume 84.8 fL (78.0-98.0); Mean Platelet Volume 7.1 fL (7.4-10.4); Platelet Count 619 thou/uL (130-400); RBC Distribution Width 14.2 % (11.5-14.5); Red Blood Cell (RBC) Count 4.45 mill/uL (4.20-5.40); White Blood Cell (WBC) Count 10.2 thou/uL (4.8-10.8)
[2018-05-02 10:07] LABS: Bilirubin Negative (Negative); Blood, Urine Negative (Negative); Clarity CLOUDY (Clear); Glucose, Urine (Dipstick) Negative (Negative); Leukocyte Negative (Negative); Nitrite Negative (Negative); Protein, Urine (Dipstick) Trace mg/dL (Neg-Trace); Specific Gravity, Urine 1.017 (1.002-1.036); Urobilinogen 0.2 mg/dL (0.2-1.0); pH, Urine 6.5 (5.0-9.0)
[2018-05-02 10:10] LABS: ALT (SGPT) 44 U/L (8-55); AST (SGOT) 18 U/L (5-34); Albumin 3.9 g/dL (3.5-5.0); Alkaline Phosphatase 159 U/L (40-150); Anion Gap 19 mmol/L (10-20); BUN (Urea Nitrogen) 12 mg/dL (7.0-18.7); Bilirubin, Total 0.3 mg/dL (0.2-1.2); Calc. Creatinine Clearance 0 mL/min (70-130); Calcium 10.1 mg/dL (7.8-10.44); Carbon Dioxide 25 mmol/L (22-29); Chloride 100 mmol/L (98-107); Estimated GFR-MDRD Greater than 90; Globulin 4.9 g/dL (2.4-3.5); Glucose 116 mg/dL (70-105); Potassium 4.6 mmol/L (3.5-5.1); Protein, Total 8.8 g/dL (6.0-8.3); Sodium 139 mmol/L (136-145)
--- NOTE | 2018-05-07 16:30 | CT ---
EXAM: CT CERVICAL SPINE WITHOUT CONTRAST: 05/07/18 HISTORY: Unwitnessed fall. Posttraumatic pain. COMPARISON: 11/20/17. FINDINGS: This examination was performed on 05/02/18 at 8:29 a.m. Examination is on the taken list and sub mitted for official interpretation on 05/07/18 at 3:01 p.m. There is no craniocervical dissociation. Appropriate alignment of the lateral masses of C1 and C2. In tact odontoid process. Appropriate alignment of the facets. No evidence of soft tissue neck abnormali ty. No epidural hematoma. No evidence of high grade central canal stenosis or high grade foraminal narrowing. Upper mediastinum and lung apices are unremarkable. Cervical spine vertebral body height is maintaine d. There is no fracture. IMPRESSION: No fracture. POS: [facility]
== END 2018-05-02 12:30 ==
LOC: ERS 07:58
DX: Z04.3 Encounter for examination and observation following other accident (principal); E11.9 Type 2 diabetes mellitus without complications; K21.9 Gastro-esophageal reflux disease without esophagitis; I10 Essential (primary) hypertension; J45.909 Unspecified asthma, uncomplicated; G40.909 Epilepsy, unspecified, not intractable, without status epilepticus; F31.9 Bipolar disorder, unspecified; Z79.899 Other long term (current) drug therapy; W19.XXXA Unspecified fall, initial encounter
CPT/HCPCS: 36415; 51701; 70450; 72125; 80053; 81003; 83605; 85025; 87040; 87086; 96360; 96361; A4353

== ENCOUNTER 2018-05-10 12:15 | Inpatient (IN) | payer MEDICARE, MEDICAID ==
[2018-05-10] MEDS ORDERED: Acetaminophen 650 MG Suppository ONE (12:25)
--- NOTE | 2018-05-10 12:38 | RAD ---
SINGLE VIEW OF THE CHEST: COMPARISON: 04/21/2018. HISTORY: Fever. FINDINGS: A single view of the chest shows a normal-size cardiomediastinal silhouette. There is no evidence of consolidation, mass, or pleural effusion. A catheter projecting over the right chest wall likely re presents a SCUBA INSTRUCTOR shunt. IMPRESSION: No evidence of acute cardiopulmonary disease. POS: [facility]
[2018-05-10 12:52] LABS: #Lymphocytes 1.6 thou/uL (1.20-3.40); #Monocytes 0.4 thou/uL (0.11-0.59); #Neutrophils 8.4 thou/uL (1.40-6.50); %Eosinophils 0.2 % (0.0-10.0); %Lymphocytes 15.3 % (21.0-51.0); %Monocytes 3.8 % (0.0-10.0); %Neutrophils 80.6 % (42.0-75.0); Hemoglobin 10.5 g/dL (12.0-16.0); Mean Corpuscular HGB CONC 31.2 g/dL (32.0-36.0); Mean Corpuscular Hemoglobin 26.5 pg (27.0-31.0); Mean Corpuscular Volume 84.8 fL (78.0-98.0); Mean Platelet Volume 6.7 fL (7.4-10.4); Platelet Count 708 thou/uL (130-400); RBC Distribution Width 14.5 % (11.5-14.5); Red Blood Cell (RBC) Count 3.97 mill/uL (4.20-5.40); White Blood Cell (WBC) Count 10.4 thou/uL (4.8-10.8)
[2018-05-10 13:08] LABS: ALT (SGPT) 44 U/L (8-55); AST (SGOT) 25 U/L (5-34); Albumin 3.8 g/dL (3.5-5.0); Alkaline Phosphatase 187 U/L (40-150); Anion Gap 13 mmol/L (10-20); BUN (Urea Nitrogen) 12 mg/dL (7.0-18.7); Bilirubin, Total 0.4 mg/dL (0.2-1.2); Calc. Creatinine Clearance 0 mL/min (70-130); Calcium 9.7 mg/dL (7.8-10.44); Carbon Dioxide 29 mmol/L (22-29); Chloride 99 mmol/L (98-107); Estimated GFR-MDRD Greater than 90; Globulin 5.1 g/dL (2.4-3.5); Glucose 135 mg/dL (70-105); Potassium 4.1 mmol/L (3.5-5.1); Protein, Total 8.9 g/dL (6.0-8.3); Sodium 137 mmol/L (136-145)
[2018-05-10 13:15] LABS: Bilirubin Negative (Negative); Blood, Urine Negative (Negative); Clarity CLOUDY (Clear); Glucose, Urine (Dipstick) Negative (Negative); Leukocyte Small (Negative); Nitrite Negative (Negative); Protein, Urine (Dipstick) 30 mg/dL (Neg-Trace); Specific Gravity, Urine 1.022 (1.002-1.036); pH, Urine 7.5 (5.0-9.0)
[2018-05-10 13:21] LABS: Bacteria/HPF 1+ HPF (None Seen)
[2018-05-10 13:25] LABS: Pathc Cast-AUWi Flag 4.21 (0-2.49)
[2018-05-10] MEDS ORDERED: Sodium Chloride 0.9% 100 ML ONE (13:27)
[2018-05-10] MEDS ORDERED: cefTRIAXone\\ROCEPHIN 2 GM VIAL ONE (13:27)
[2018-05-10 13:33] LABS: Crystals/HPF 1+ AMORPH PHOS HPF (Negative); Hyaline Casts/LPF 0-3 HYALINE CAST LPF (0-3 Hyaline); Other Casts/LPF None Seen LPF (0-3 Hyaline)
[2018-05-10 20:21] VITALS: BMI 30.9
[2018-05-10] MEDS: Sodium Chloride 0.9% 1,000 ML IV SCH (20:21)
[2018-05-10] MEDS ORDERED: Glycopyrrolate 1 MG TAB PER TUBE SCH (23:15)
[2018-05-10] MEDS ORDERED: levETIRAcetam 500 mg/5 ml Oral Solution PER TUBE SCH (23:15)
[2018-05-11] MEDS: Sodium Chloride 0.9% 1,000 ML IV SCH (02:41)
[2018-05-11] MEDS: cefTRIAXone\\ROCEPHIN 2 GM in Sodium Chloride 0.9% 100 ML IVPB SCH (09:03)
[2018-05-11] MEDS: Metoprolol Tartrate 25 MG TAB PER TUBE SCH ×2 (10:00→22:19)
[2018-05-11] MEDS: Pantoprazole 40 MG GRANULES PACKET PER TUBE SCH (10:01)
[2018-05-11] MEDS: levETIRAcetam 500 mg/5 ml Oral Solution PER TUBE SCH ×2 (10:02→22:20)
[2018-05-11] MEDS: Glycopyrrolate 1 MG TAB PER TUBE SCH ×3 (12:04→22:20)
[2018-05-11] MEDS ORDERED: Dextrose 5% in Water 1,000 ML IV PRN (14:18)
[2018-05-11] MEDS ORDERED: Dextrose 50% Abboject 50 ML SYRINGE IVP PRN (14:18)
[2018-05-11] MEDS: Acetaminophen 650 MG/20.3 ML UDCUP PER TUBE PRN (17:10)
--- NOTE | 2018-05-11 21:56 | HP ---
CHIEF COMPLAINT: High fever. HISTORY OF PRESENT ILLNESS: Ms. Norwood is a 48-year-old female with past medical history of status post craniotomy for cerebral hemorrhage with aneurysm, came to the neurosurgery office for cranioplasty and then she was noted to have high fever of 101.9. In view of that, surgery was canceled, and the patient was sent to the emergency room. The patient cannot give any history. She is noncommunicating since the stroke. According to the detention, she did not have any cough, any nausea or vomiting and was not in respiratory distress. So, the patient was evaluated in the ER, found to have a temperature of 103.5, and she was tachycardic with 118 per minute, and she was tachypneic as well around 27 per minute. The patient was found to have urinary tract infection. She was given a dose of Levaquin, cefepime, and ceftriaxone as well as given IV fluids, and admitted for further evaluation and management. Cultures were done. PAST MEDICAL HISTORY: 1. Intracranial hemorrhage, status post craniotomy. 2. Diabetes mellitus. 3. Gastroesophageal reflux disease. 4. Hypertension. 5. History of bronchial asthma. 6. History of seizure disorder. 7. History of adenovirus pneumonia. PAST SURGICAL HISTORY: Status post repair of bifurcation aneurysm, status post cholecystectomy, status post PEG tube placement. CURRENT MEDICATIONS: The patient is on: 1. Dulcolax p.r.n. 2. Atarax p.r.n. 3. DuoNebs q.i.d. p.r.n. 4. Keppra 500 b.i.d. 5. Metoprolol 12.5 b.i.d. 6. Omeprazole 40 mg daily. 7. Scopolamine patch 1.5 mg q.3 days. 8. Sodium bicarbonate 650 per protocol and She is on tube feeding, Jevity 1.2. ALLERGIES: CODEINE, SULFATE, VANCOMYCIN, AND ZOSYN. FAMILY HISTORY: Nothing contributory. SOCIAL HISTORY: The patient lives in [facility] in [place]. No history of smoking. No history of alcohol. REVIEW OF SYSTEMS: Unable to obtain because of mental status of the patient. The patient is not communicative. PHYSICAL EXAMINATION: GENERAL: The patient is awake, not alert. VITAL SIGNS: Temperature 103.5, pulse 107, respirations 20, and blood pressure 140/80. HEENT: Head is normocephalic and atraumatic. Pupils are equal and reactive. Nasopharynx is pale and dry. Hard and soft palate, no lesions. SKIN: Turgor decreased. NECK: Supple. No JVD. LUNGS: Bilateral air entry. No rales. No rhonchi. HEART: S1 and S2, regular. ABDOMEN: Soft. No distention. No tenderness. Normal bowel sounds are present. EXTREMITIES: No edema. LABORATORY DATA: CBC shows WBC 10.4, hemoglobin 10.5, hematocrit 33, and platelets 708. Metabolic panel; sodium 137, potassium 4.9, chloride 99, CO2 . Urinalysis showed wbc's 7 to 10, rbc's 4 to 6, bacteria 1+. Chest x-ray, no evidence of acute cardiopulmonary disease. EKG shows sinus tachycardia with heart rate around 124. No acute ST-T changes seen. ASSESSMENT: 1. High fever, rule out sepsis. 2. Possible urinary tract infection. 3. Diabetes mellitus. 4. Status post craniotomy. 5. History of cerebral hemorrhage. 6. History of adenovirus pneumonia. 7. History of seizure disorder. 8. History of bronchial asthma. 9. Gastroesophageal reflux disease. 10. Hypertension. PLAN: 1. Vitals signs q.4 hours. 2. Activity, as tolerated. 3. Allergies are multiple include codeine, Zosyn, vancomycin, sulfa. 4. Hep-Lock. 5. Rocephin 2 g IV piggyback daily. 6. Levaquin 750 mg IV piggyback daily. 7. Diet, tube feeding. 8. Continue detention medications. 9. Accu-Chek a.c. and h.s. with sliding scale mild with regular insulin. 10. We will follow the cultures. Job ID: [id number] [facility]
[2018-05-12] MEDS: Pantoprazole 40 MG GRANULES PACKET PER TUBE SCH (09:59)
[2018-05-12] MEDS: Glycopyrrolate 1 MG TAB PER TUBE SCH ×3 (10:00→21:41)
[2018-05-12] MEDS: Metoprolol Tartrate 25 MG TAB PER TUBE SCH ×2 (10:00→21:41)
[2018-05-12] MEDS: Acetaminophen 650 MG/20.3 ML UDCUP PER TUBE PRN ×2 (10:01→22:23)
[2018-05-12] MEDS: levETIRAcetam 500 mg/5 ml Oral Solution PER TUBE SCH ×2 (10:01→21:41)
[2018-05-12] MEDS: cefTRIAXone\\ROCEPHIN 2 GM in Sodium Chloride 0.9% 100 ML IVPB SCH (10:05)
[2018-05-12] MEDS: Nitrofurantoin ORAL SUSP. 25 MG/5 ML UDCUP PER TUBE SCH (17:31)
[2018-05-13] MEDS: Acetaminophen 650 MG/20.3 ML UDCUP PER TUBE PRN (05:59)
[2018-05-13] MEDS: Nitrofurantoin ORAL SUSP. 25 MG/5 ML UDCUP PER TUBE SCH ×2 (06:02→19:36)
[2018-05-13] MEDS: Metoprolol Tartrate 25 MG TAB PER TUBE SCH ×2 (09:13→20:46)
[2018-05-13] MEDS: levETIRAcetam 500 mg/5 ml Oral Solution PER TUBE SCH ×2 (09:13→20:46)
[2018-05-13] MEDS: Pantoprazole 40 MG GRANULES PACKET PER TUBE SCH (09:14)
[2018-05-13] MEDS: Glycopyrrolate 1 MG TAB PER TUBE SCH ×3 (09:15→20:46)
[2018-05-13] MEDS: Insulin Regular 300 UNITS/3 ML VIAL SC PRN (11:58)
[2018-05-13] MEDS: Cephalexin 250 MG/5 ML Oral Suspension PER TUBE SCH ×2 (15:35→20:46)
[2018-05-14] MEDS: Nitrofurantoin ORAL SUSP. 25 MG/5 ML UDCUP PER TUBE SCH ×2 (06:31→17:43)
[2018-05-14] MEDS: levETIRAcetam 500 mg/5 ml Oral Solution PER TUBE SCH ×2 (10:28→20:44)
[2018-05-14] MEDS: Pantoprazole 40 MG GRANULES PACKET PER TUBE SCH (10:28)
[2018-05-14] MEDS: Metoprolol Tartrate 25 MG TAB PER TUBE SCH ×2 (10:28→20:44)
[2018-05-14] MEDS: Cephalexin 250 MG/5 ML Oral Suspension PER TUBE SCH (10:29)
[2018-05-14] MEDS: Glycopyrrolate 1 MG TAB PER TUBE SCH ×3 (10:29→20:43)
--- NOTE | 2018-05-14 11:16 | PQF ---
[employer]rigerator Preparer Crystal Reports Winform ViewerMEDINA,LENIN STUART, KINZA [place] [id number] CLINICAL DOCUMENTATION IMPROVEMENT CLARIFICATION FORM: ICD-10 Updated PLEASE DO AN ADDENDUM TO THE PROGRESS NOTE WITH ANY DOCUMENTATION UPDATES OR ADDITIONS AND CARRY THROUGH TO DC SUMMARY. THANK YOU. DATE: 05/14/18 ATTN: Dr. Campbell Please exercise your independent, professional judgment in responding to the clarification form. Clinical indicators are provided on the bottom of this form for your review Please check appropriate box(s) to clarify if the following diagnosis has been ruled in or ruled out: Sepsis (CDI/Coding list diagnosis here) [ ] Ruled in diagnosis [ ] Continue to treat [ ] Resolved [ y] Ruled out diagnosis [ ] Cannot rule out diagnosis [ ] Other diagnosis [ ] Unable to determine In addition, please specify: Present on Admission (POA): [ y ] Yes [ ] No [ ] Unable to determine For continuity of documentation, please document condition throughout progress notes and discharge summary. Thank You. CLINICAL INDICATORS - SIGNS / SYMPTOMS / LABS To support the diagnosis--> 05/10 UA WBC 7-10; Urine culture: Enterococcus faecalis % NEUTROS 80.6 05/10 per lab H&P: high fever, R/O Sepsis, UTI 05/10 VS: Temp 103.5, HR 107 RISK FACTORS s/p craniotomy for cerebral hemorrhage with aneursym per H&P TREATMENTS To support diagnosis--> Rocephin IV, Levaquin IV 05/10-05/12 Per MAR-- Nitrofunrantoin 05/12-05/14, keflex per tube 05/13 to date per MAR IVFs--> NS at 150 05/10 to 05/11 per MAR (This form is maintained as a part of the permanent medical record) 2014 [employer]. All Rights Reserved Wen Ellis, RN, BSN, CCDS [email or web address] [phone] MTDD
[2018-05-14] MEDS: Rifampin 300 MG CAP PO SCH (20:44)
[2018-05-14] MEDS: Doxycycline 100 MG CAP PER TUBE SCH (20:44)
[2018-05-15] MEDS: Nitrofurantoin ORAL SUSP. 25 MG/5 ML UDCUP PER TUBE SCH ×2 (05:31→16:27)
[2018-05-15] MEDS: levETIRAcetam 500 mg/5 ml Oral Solution PER TUBE SCH ×2 (09:37→21:45)
[2018-05-15] MEDS: Metoprolol Tartrate 25 MG TAB PER TUBE SCH ×2 (09:38→21:45)
[2018-05-15] MEDS: Pantoprazole 40 MG GRANULES PACKET PER TUBE SCH (09:38)
[2018-05-15] MEDS: Glycopyrrolate 1 MG TAB PER TUBE SCH ×3 (09:38→21:45)
[2018-05-15] MEDS: Doxycycline 100 MG CAP PER TUBE SCH ×2 (09:38→21:45)
[2018-05-15] MEDS: Rifampin 300 MG CAP PO SCH ×2 (09:38→21:46)
[2018-05-15] MEDS: Acetaminophen 650 MG/20.3 ML UDCUP PER TUBE PRN ×2 (16:32→23:48)
[2018-05-16 03:32] LABS: #Eosinphils 0.2 thou/uL (0.0-0.7); #Lymphocytes 0.7 thou/uL (1.20-3.40); #Monocytes 0.3 thou/uL (0.11-0.59); #Neutrophils 5.6 thou/uL (1.40-6.50); %Basophils 0.4 % (0.0-1.0); %Eosinophils 2.2 % (0.0-10.0); %Lymphocytes 10.4 % (21.0-51.0); %Monocytes 4.2 % (0.0-10.0); %Neutrophils 82.7 % (42.0-75.0); Hemoglobin 10.1 g/dL (12.0-16.0); Mean Corpuscular HGB CONC 32.2 g/dL (32.0-36.0); Mean Corpuscular Hemoglobin 27.2 pg (27.0-31.0); Mean Corpuscular Volume 84.7 fL (78.0-98.0); Mean Platelet Volume 7.3 fL (7.4-10.4); Platelet Count 404 thou/uL (130-400); RBC Distribution Width 15.2 % (11.5-14.5); Red Blood Cell (RBC) Count 3.71 mill/uL (4.20-5.40); White Blood Cell (WBC) Count 6.7 thou/uL (4.8-10.8)
[2018-05-16 03:53] LABS: Anion Gap 13 mmol/L (10-20); BUN (Urea Nitrogen) 11 mg/dL (7.0-18.7); Calc. Creatinine Clearance 175 mL/min (70-130); Calcium 9.2 mg/dL (7.8-10.44); Carbon Dioxide 29 mmol/L (22-29); Chloride 100 mmol/L (98-107); Estimated GFR-MDRD Greater than 90; Glucose 115 mg/dL (70-105); Potassium 3.6 mmol/L (3.5-5.1); Sodium 138 mmol/L (136-145)
[2018-05-16] MEDS: Nitrofurantoin ORAL SUSP. 25 MG/5 ML UDCUP PER TUBE SCH ×2 (06:33→18:17)
[2018-05-16] MEDS: levETIRAcetam 500 mg/5 ml Oral Solution PER TUBE SCH ×2 (10:41→22:44)
[2018-05-16] MEDS: Metoprolol Tartrate 25 MG TAB PER TUBE SCH ×2 (10:41→22:41)
[2018-05-16] MEDS: Doxycycline 100 MG CAP PER TUBE SCH ×2 (10:41→22:41)
[2018-05-16] MEDS: Pantoprazole 40 MG GRANULES PACKET PER TUBE SCH (10:41)
[2018-05-16] MEDS: Rifampin 300 MG CAP PO SCH (10:42)
[2018-05-16] MEDS: Glycopyrrolate 1 MG TAB PER TUBE SCH ×3 (10:43→22:43)
[2018-05-16] MEDS ORDERED: ISOVUE-370 76%-LOCM 1 ML ONE (14:12)
--- NOTE | 2018-05-16 23:51 | CT ---
CT ABDOMEN AND PELVIS WITH ORAL AND IV CONTRAST: 05/16/18 HISTORY: Recurrent fever, vegetative state, UTI. COMPARISON: 01/02/18 There is atelectatic change in the right lung base. The liver, spleen, pancreas, left adrenal gland, and right kidney are normal. A small low dense lesion in the left renal cortex likely a cyst is again seen. There has been interval increase in the size of the right adrenal mass from 3.5 cm on the prev ious exam to 4 cm on the current study. 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 No free air, free fluid, or lymphadenopathy is noted in the abdomen or pelvis. There are vascular calcifications without evidence of aneurysmal dilatation of the abdominal aorta. The uterus and ovaries are present. The small bowel loops are not abnormally dilated. A norm al appearing appendix is seen. There are degenerative changes in the spine. There is a PEG tube in th e stomach. IMPRESSION: 1. No acute process. 2. Interval increase in size of the right adrenal mass since 01/02/18. Possibility of malignancy /metastatic disease should be considered. POS: WINIFRED
--- NOTE | 2018-05-17 00:08 | CON ---
DATE OF CONSULTATION: 05/16/2018 REASON FOR CONSULTATION: Fever. HISTORY OF PRESENT ILLNESS: A 48-year-old whom we had just recently seen for similar problems. She has multiple admissions to this hospital for management of intracerebral hemorrhage, which led to emergent hemicraniectomy and decompression. She had then Dilantin hypersensitivity reaction, and then in March. She came from correction with tachypnea, fever, and abnormal chest x-ray, which was felt to be due to aspiration pneumonia. She was treated with broad-spectrum coverage. In April, she had also adenovirus and rhinovirus demonstrated and the air space opacities resolved. She was readmitted with chest congestion, hypertension, tachycardia, and fever. A few days later, she had a CT of chest, which showed no evidence of pulmonary embolism, and a brain CT with stable appearance. At this time, we felt that an another episode of aspiration was likely. At this time, she has been evaluated for repair of the craniectomy defect and was noted to have temperature 101.9. Surgery was canceled and she was admitted. She had abnormal urinalysis with positive urine cultures and she was given antimicrobial therapy. Currently, she appears to be awake, but does not interact with the examiner. The patient has had no diarrhea according to the nurse. She is fed enteric nutrition through the gastrostomy tube. PAST MEDICAL HISTORY: IC hemorrhage, craniectomy, type 2 diabetes, GERD, hypertension, aspiration pneumonia, gastrostomy tube placement, adenovirus pneumonia. PAST SURGICAL HISTORY: Repair of a brain aneurysm, cholecystectomy, PEG tube placement. ALLERGIES: CODEINE, SULFA DRUGS, VANCOMYCIN, AND ZOSYN. FAMILY HISTORY: Noncontributory. SOCIAL HISTORY: detention resident in [place]. No smoking. MEDICATION LIST: 1. Tylenol. 2. DuoNeb. 3. Dextrose. 4. Vibramycin. 5. Glucagon. 6. Insulin. 7. Keppra. 8. Pantoprazole. 9. Nitrofurantoin. 10. Rifampin. PHYSICAL EXAMINATION: VITAL SIGNS: T-max 101 on arrival, then 100.7 more recently, BP 118/71, pulse 79, respirations 16 to 20, O2 saturation 98%. SKIN: Shows just pressure areas in the presacral region and heel, but no actual skin breakdown. She has no IV access. She has a gastrostomy tube. HEENT: The patient has no lymphadenopathy. Ocular movements are dysconjugate as always. Pupils are 2 mm and reactive. The oral cavity was not able to be examined because she kept her teeth clenched. NECK: Stiff to all directions. LUNGS: Symmetric. Clear breath sounds. HEART: S1 and S2, regular rate. No S3 or S4. ABDOMEN: Soft, not distended. EXTREMITIES: She has quadriparesis, contractures in the upper extremities. Pulses are 1+ in dorsalis pedis. NEUROLOGIC: She is obtunded. She is awake, but does not interact with the examiner. LABORATORY DATA: White cell count 10.4 and 6.7, hemoglobin 10.5, platelets 708 and 404, 80% neutrophils. Sodium 138, creatinine 0.52, bilirubin 0.4, AST 25, ALT 44, alkaline phosphatase 187. Albumin was 3.8. Urine culture with Enterococcus faecalis with the usual susceptibility profile, greater than 100,000 CFUs, was susceptible to ampicillin as well. The PEG tube drainage with MRSA. IMAGING STUDIES: Include a chest x-ray with no evidence of acute cardiopulmonary disease. The last abdomen and pelvis CT was from January 02, 2018, and it showed abnormal density in the anterior abdominal wall with tiny air pockets. ASSESSMENT: 1. Hemorrhagic cerebrovascular accident from aneurysm rupture which required craniectomy. 2. Recurrent fever episodes with previous evidence suggestive of respiratory complications including viral and bacterial associated with aspiration. 3. Abnormal urinalysis with positive urine cultures. DISCUSSION: At this time, it is not clear that the respiratory tract was the culprit. We will evaluate her CT abdomen and pelvis for signs to suggest obstruction of the renal tract, might be associated with pyelonephritis and other inflammatory processes as well. The possibility of complications related to the HOSPITAL SUPERVISOR shunt will be considered as well, but that appears less likely Job ID: [id number] [facility]
[2018-05-17] MEDS: Rifampin 300 MG CAP PO SCH ×3 (00:14→21:55)
[2018-05-17] MEDS: Nitrofurantoin ORAL SUSP. 25 MG/5 ML UDCUP PER TUBE SCH ×2 (05:32→18:32)
[2018-05-17] MEDS: Metoprolol Tartrate 25 MG TAB PER TUBE SCH ×2 (09:03→21:56)
[2018-05-17] MEDS: Pantoprazole 40 MG GRANULES PACKET PER TUBE SCH (09:04)
[2018-05-17] MEDS: Glycopyrrolate 1 MG TAB PER TUBE SCH ×3 (09:04→21:56)
[2018-05-17] MEDS: Doxycycline 100 MG CAP PER TUBE SCH ×2 (09:04→21:56)
[2018-05-17] MEDS: levETIRAcetam 500 mg/5 ml Oral Solution PER TUBE SCH ×2 (09:04→21:55)
[2018-05-17] MEDS: Insulin Regular 300 UNITS/3 ML VIAL SC PRN (11:29)
--- NOTE | 2018-05-17 15:10 | PRG ---
DATE OF SERVICE: 05/17/2018 SUBJECTIVE: Ms. Norwood appears awake, but is not interacting with examiner. OBJECTIVE: VITAL SIGNS: T-max 99.8, blood pressure 110/69, pulse 93, respirations 16, and O2 sat 96%. LUNGS: Symmetric air entry. No obvious crackles. HEART: S1 and S2, regular rate. ABDOMEN: Not distended. NEURO: Unchanged. LABORATORY DATA: White cell count 6.7, hemoglobin 10.1, and platelets 404. Chemistry was not repeated. We have Enterococcus faecalis from urine culture. Repeat abdomen and pelvis CT showed an enlargement of the adrenal mass in the right side to 4 cm, but no other findings of significance. No evidence of hydronephrosis. ASSESSMENT AND DISCUSSION: 1. Hemorrhagic cerebrovascular accident with severe neurological impairment, quadriplegia, recurrent fever episodes sometimes with respiratory complications, now what appears to be urinary tract infection. 2. Enlarging adrenal mass. We will continue current antimicrobial. Eventually, she has a history of piperacillin allergy. Therefore, it would be difficult to administer ampicillin for treatment of the presumptive urinary tract infection and probably have to finish her treatment in the hospital situation. I could also give her IV vancomycin in the detention, but that would require placement of an IV access at least a midline. Regarding the adrenal mass, we will submit metanephrines and cortisol in urine 24 hours to see if the mass is hormonally active or not. This could represent a malignancy or an adenoma. Job ID: [id number]
[2018-05-17] MEDS ORDERED: Clopidogrel Bisulfate 75 MG TAB ONE (18:15)
[2018-05-18] MEDS: Acetaminophen 650 MG/20.3 ML UDCUP PER TUBE PRN ×2 (05:55→19:21)
[2018-05-18] MEDS: Nitrofurantoin ORAL SUSP. 25 MG/5 ML UDCUP PER TUBE SCH ×2 (05:56→18:12)
--- NOTE | 2018-05-18 09:43 | EKG ---
Test Reason : Blood Pressure : / mmHG Vent. Rate : 124 BPM Atrial Rate : 124 BPM P-R Int : 120 ms QRS Dur : 084 ms QT Int : 298 ms P-R-T Axes : 037 -01 016 degrees QTc Int : 428 ms Sinus tachycardia Moderate voltage criteria for LVH, may be normal variant Nonspecific ST abnormality Abnormal ECG Confirmed by YOLANDA MA, JULIA Herrera ([id number]), science editor SIDRA MAKI ([id number]) on 05/18/2018 9:43:07 AM Referred By: Confirmed By:JULIA GUERRERO MD
[2018-05-18] MEDS: levETIRAcetam 500 mg/5 ml Oral Solution PER TUBE SCH ×2 (10:10→21:39)
[2018-05-18] MEDS: Metoprolol Tartrate 25 MG TAB PER TUBE SCH ×2 (10:10→21:39)
[2018-05-18] MEDS: Glycopyrrolate 1 MG TAB PER TUBE SCH ×3 (10:10→21:39)
[2018-05-18] MEDS: Doxycycline 100 MG CAP PER TUBE SCH ×2 (10:10→21:39)
[2018-05-18] MEDS: Pantoprazole 40 MG GRANULES PACKET PER TUBE SCH (10:11)
[2018-05-18] MEDS: Rifampin 300 MG CAP PO SCH ×2 (11:30→21:39)
--- NOTE | 2018-05-18 15:02 | CON ---
DATE OF CONSULTATION: 05/18/2018 HISTORY OF PRESENT ILLNESS: I was asked to see Ms. Norwood by Dr. Campbell, regarding a possible PEG tube infection and possible need for PEG tube change. Ms. Norwood is not able to add any history to the situation and she has had a traumatic brain injury in the past. Apparently, she was here in the hospital in 11/2017, and she had a right intracranial bleed. During that admission, she had a PEG tube placed by Dr. Sagar Marie of General Surgery. It appears that is the initial PEG tube that was placed. The patient was admitted on the of this month for high fevers. She was going to have a cranioplasty, but because of the fever, this was canceled and she was sent to the emergency room and admitted. She has been seen by Dr. Villegas as well. They are not sure if the fever is related to some aspiration or urinary tract infection. Along the way in the workup, it was noted she had a little bit of exudate at her PEG tube site. This was cultured and showed MRSA. All her other cultures showed enterococcus in the urine, coagulase-negative Staph in the blood on 1 of 2 cultures. The patient could add no further history to this. A CAT scan has been performed, which showed no abnormalities to PEG tube site. PAST MEDICAL HISTORY: Intracranial hemorrhage with craniotomy and PEG tube in place, diabetes, history of reflux, history of hypertension, history of asthma, history of seizure disorder, history of adenovirus pneumonia. PAST SURGICAL HISTORY: Repair of bifurcation aneurysm, previous cholecystectomy, previous PEG tube placement in November 2017. ALLERGIES: CODEINE, SULFA, VANCOMYCIN, AND ZOSYN. FAMILY HISTORY: Noncontributory. SOCIAL HISTORY: The patient lives at [facility] in [place]. REVIEW OF SYSTEMS: Unable to be obtained. MEDICATIONS: Medications here, 1. IV Tylenol. 2. DuoNeb. 3. Dextrose. 4. . 5. P.r.n. Robinul. 6. Insulin sliding scale. 7. Oral Keppra. 8. Lopressor b.i.d. 9. Nitrofurantoin. 10. Protonix. 11. Rifampin. PHYSICAL EXAMINATION: GENERAL: The patient is in bed. She is nonresponsive. She is a bit overweight. She is in no distress. VITAL SIGNS: Temperature 99.2 to 98, pulse 114, blood pressure 116/78. HEENT: Oropharynx without lesions. NECK: Supple. LUNGS: Clear. HEART: Regular rate and rhythm. ABDOMEN: There is a PEG tube in place, evaluating this. There is no evidence of cellulitis or erythema of the skin, pushing on the air in the PEG. There is no pus or abscess felt. There is no hard submucosal masses or fullness present. The PEG tube appears to be without leaks and is functional. EXTREMITIES: Show no clubbing, cyanosis, or edema. LABORATORY STUDIES: White count 6.7 on the , hemoglobin was 10.1. She usually runs between 8 and 10. Platelet count 404. INR 1. Glucose 150 today. Last chemistry on 05/16, sodium 138, potassium 3.6, chloride 100, bicarb 28, BUN and creatinine are 11 and 0.52. IMAGING STUDIES: CAT scan images were reviewed. The PEG tube is in place adequately, and there is no evidence of fluid collection, abscess or cellulitis in the PEG tube tract. 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 I suspect her skin is diffusely colonized with this. There is no reason to change the PEG tube at this time as there are no signs of infection at the PEG tube site or abscess. The exudate that is there is normal exudate from the mucosa of the PEG tube tract. If the Infectious Disease and primary service would like to treat the MRSA and de-colonizer, we can change the PEG tube at the same time, but otherwise there is no reason to change the PEG tube presently as it is functioning well and it will just be colonized with MRSA again. Additionally, I suspect that even if it is changed here and she is decontaminated, she probably contracted the MRI say at the long-term and she will likely be reinfected. RECOMMENDATIONS: So, at this time, I would not do anything with the PEG tube. If there are desires in the part of Infectious Disease and Primary Service to treat the MRSA and put her through a decontamination program, it would be reasonable to change the PEG tube. This can be done electively. If that is going to be done over the weekend, I can re-evaluate her, but otherwise her surgeon who placed the PEG tube or the Trauma Service on-call for Dr. Marie would need to do this as they placed the PEG. Job ID: [id number]
[2018-05-19] MEDS: Nitrofurantoin ORAL SUSP. 25 MG/5 ML UDCUP PER TUBE SCH ×2 (06:30→18:07)
[2018-05-19] MEDS: Acetaminophen 650 MG/20.3 ML UDCUP PER TUBE PRN ×2 (06:30→18:07)
[2018-05-19] MEDS: Metoprolol Tartrate 25 MG TAB PER TUBE SCH ×2 (10:20→22:21)
[2018-05-19] MEDS: levETIRAcetam 500 mg/5 ml Oral Solution PER TUBE SCH ×2 (10:20→22:21)
[2018-05-19] MEDS: Glycopyrrolate 1 MG TAB PER TUBE SCH ×3 (10:20→22:21)
[2018-05-19] MEDS: Doxycycline 100 MG CAP PER TUBE SCH ×2 (10:20→22:21)
[2018-05-19] MEDS: Rifampin 300 MG CAP PO SCH ×2 (10:20→22:21)
[2018-05-19] MEDS: Pantoprazole 40 MG GRANULES PACKET PER TUBE SCH (10:20)
[2018-05-19] MEDS: Insulin Regular 300 UNITS/3 ML VIAL SC PRN (18:07)
[2018-05-20] MEDS: Acetaminophen 650 MG/20.3 ML UDCUP PER TUBE PRN (03:32)
[2018-05-20] MEDS: Insulin Regular 300 UNITS/3 ML VIAL SC PRN ×2 (07:11→12:05)
[2018-05-20] MEDS: Nitrofurantoin ORAL SUSP. 25 MG/5 ML UDCUP PER TUBE SCH ×2 (07:11→17:05)
[2018-05-20] MEDS: Metoprolol Tartrate 25 MG TAB PER TUBE SCH ×2 (09:34→20:54)
[2018-05-20] MEDS: Doxycycline 100 MG CAP PER TUBE SCH ×2 (09:34→20:53)
[2018-05-20] MEDS: Glycopyrrolate 1 MG TAB PER TUBE SCH ×3 (09:34→20:53)
[2018-05-20] MEDS: Rifampin 300 MG CAP PO SCH ×2 (09:34→21:12)
[2018-05-20] MEDS: Pantoprazole 40 MG GRANULES PACKET PER TUBE SCH (09:34)
[2018-05-20] MEDS: levETIRAcetam 500 mg/5 ml Oral Solution PER TUBE SCH ×2 (09:34→20:54)
[2018-05-20 09:54] LABS: Hemoglobin 10.3 g/dL (12.0-16.0); Mean Corpuscular Hemoglobin 26.9 pg (27.0-31.0); Mean Corpuscular Volume 86.8 fL (78.0-98.0); Mean Platelet Volume 7.5 fL (7.4-10.4); Platelet Count 398 thou/uL (130-400); RBC Distribution Width 15.6 % (11.5-14.5); Red Blood Cell (RBC) Count 3.82 mill/uL (4.20-5.40); White Blood Cell (WBC) Count 7.5 thou/uL (4.8-10.8)
[2018-05-20 10:05] LABS: Anion Gap 14 mmol/L (10-20); BUN (Urea Nitrogen) 11 mg/dL (7.0-18.7); Calc. Creatinine Clearance 175 mL/min (70-130); Calcium 9.3 mg/dL (7.8-10.44); Carbon Dioxide 29 mmol/L (22-29); Chloride 101 mmol/L (98-107); Estimated GFR-MDRD Greater than 90; Glucose 108 mg/dL (70-105); Sodium 140 mmol/L (136-145)
[2018-05-20 10:36] LABS: Free T4 (Free Thyroxine) 0.85 ng/dL (0.70-1.48); Thyroid Stimulating Hormone 2.273 uIU/mL (0.35-4.94)
[2018-05-20 11:58] LABS: Band 5 % (5-11); Eosinophils 2 % (0-10); Lymphocytes 30 % (21-51); MDiff Complete? YES; Monocytes 8 % (0-10); Neutrophil 55 % (42-75); RBC Morphology Normal
[2018-05-20] MEDS ORDERED: Sodium Bicarbonate Tab 325 MG TAB PER TUBE PRN (16:24)
[2018-05-20] MEDS ORDERED: Pancrelipase DR 12000 1 CAP FS PRN (16:24)
--- NOTE | 2018-05-21 00:11 | CON ---
DATE OF CONSULTATION: 05/20/2018 REASON FOR CONSULTATION: Tachycardia, sinus. HISTORY OF PRESENT ILLNESS: Ms. Brigida Norwood is an unfortunate 48-year-old woman. She has a previous history of traumatic brain injury and intracranial hemorrhage. The patient is admitted on this occasion with probable sepsis. She has been intermittently tachycardic since then. The patient is not communicative. PAST MEDICAL HISTORY: As outlined above from a neurologic standpoint. She is unable to tell me now whether she has chest pain or pressure. She is not communicative. PHYSICAL EXAMINATION: VITAL SIGNS: Her blood pressure is 130/87, pulse is variable between 100 and occasionally up to 120. HEENT: Eyes, sclerae are nonicteric. Mouth, mucous membranes are moist. NECK: Supple. LUNGS: No wheezing, rales, or rhonchi. CARDIAC: She is intermittently tachycardic. She is not tachycardic currently. ABDOMEN: Soft, nontender. EXTREMITIES: Warm and dry. No clubbing, cyanosis, or edema. PERTINENT LABORATORY DATA: Creatinine is 0.52, hemoglobin is 10.3. WBC was initially 10.4, now 7.5. EKG reveals intermittent sinus tachycardia. ASSESSMENT: 1. History of intracranial hemorrhage with traumatic brain injury. 2. Intermittent sinus tachycardia. 3. Intermittent sepsis. Sinus tachycardia earlier was likely related to infection. Now there is some question whether she may have a pheochromocytoma, that is being evaluated. She has an adrenal mass. PLAN: 1. We will do an echocardiogram. 2. Continue beta blockers. If she has more tachycardia, we can increase the metoprolol to 50 mg twice a day. 3. Evaluation of the adrenal mass is in progress. Job ID: [id number]
[2018-05-21] MEDS: Nitrofurantoin ORAL SUSP. 25 MG/5 ML UDCUP PER TUBE SCH ×2 (05:41→16:59)
[2018-05-21] MEDS: Acetaminophen 650 MG/20.3 ML UDCUP PER TUBE PRN (05:52)
[2018-05-21] MEDS: Doxycycline 100 MG CAP PER TUBE SCH (09:31)
[2018-05-21] MEDS: Metoprolol Tartrate 25 MG TAB PER TUBE SCH ×2 (09:31→20:50)
--- NOTE | 2018-05-21 09:31 | PRG ---
DATE OF SERVICE: 05/20/2018 SUBJECTIVE: She does not interact with the examiner. OBJECTIVE: VITAL SIGNS: She has been afebrile, T-max 99. HEENT: Dysconjugate eye movements. NEUROLOGIC: She seems to be aware of things, but due to her severe neurological impairment, cannot communicate very well. LUNGS: Clear to auscultation and percussion. HEART: S1 and S2, regular rate. ABDOMEN: Soft. She has an indwelling Ortega catheter. LABORATORY DATA: White cell count 7.5, hemoglobin 10.3, platelets 398 with normal differential. Cultures revealed enterococcus faecalis susceptibility to ampicillin. CT of the abdomen showed increase in size of right adrenal mass. Thyroid test was normal. Cortisol and metanephrines are pending. ASSESSMENT AND DISCUSSION: Hemorrhagic cerebrovascular accident with severe neurological impairment, quadriplegia, recurrent fever episodes, sometimes respiratory complications, and then urinary tract infection symptoms, enlarging adrenal mass, being evaluated at this time. The patient to continue on IV vancomycin for another few days. Job ID: [id number]
[2018-05-21] MEDS: Rifampin 300 MG CAP PO SCH (09:32)
[2018-05-21] MEDS: levETIRAcetam 500 mg/5 ml Oral Solution PER TUBE SCH ×2 (09:32→20:50)
[2018-05-21] MEDS: Pantoprazole 40 MG GRANULES PACKET PER TUBE SCH (09:32)
[2018-05-21] MEDS: Glycopyrrolate 1 MG TAB PER TUBE SCH ×3 (09:32→20:50)
--- NOTE | 2018-05-21 09:53 | PRG ---
DATE OF SERVICE: 05/21/2018 SUBJECTIVE: Ms. Norwood was started on increased dose beta blockers. Her rate is in the 90s. ASSESSMENT: Sinus tachycardia, responding to beta blockers? Related to previous central nervous system injury. PLAN: Echocardiogram to be pending. Otherwise, no further suggestions. We will sign off. Please re-consult if needed. Job ID: [id number]
[2018-05-22] MEDS: Acetaminophen 650 MG/20.3 ML UDCUP PER TUBE PRN (00:33)
[2018-05-22] MEDS: Glycopyrrolate 1 MG TAB PER TUBE SCH ×3 (09:46→20:54)
[2018-05-22] MEDS: Pantoprazole 40 MG GRANULES PACKET PER TUBE SCH (09:46)
[2018-05-22] MEDS: levETIRAcetam 500 mg/5 ml Oral Solution PER TUBE SCH ×2 (09:46→20:54)
[2018-05-22] MEDS: Metoprolol Tartrate 25 MG TAB PER TUBE SCH ×2 (09:46→20:54)
[2018-05-22] MEDS: Insulin Regular 300 UNITS/3 ML VIAL SC PRN (13:43)
[2018-05-23] MEDS: Glycopyrrolate 1 MG TAB PER TUBE SCH ×3 (09:06→21:42)
[2018-05-23] MEDS: levETIRAcetam 500 mg/5 ml Oral Solution PER TUBE SCH ×2 (09:08→21:42)
[2018-05-23] MEDS: Metoprolol Tartrate 25 MG TAB PER TUBE SCH ×2 (09:08→22:12)
[2018-05-23] MEDS: Pantoprazole 40 MG GRANULES PACKET PER TUBE SCH (09:08)
[2018-05-23 17:09] LABS: Metanephrine,Ur 201 ug/L (Undefined); Metanephrines Total-24H 266 ug/24 hr (45-290); Normetanephrine,Ur 495 ug/L (Undefined); Normetanephrines-24H U 656 ug/24 hr (82-500)
[2018-05-23] MEDS: Insulin Regular 300 UNITS/3 ML VIAL SC PRN (21:43)
[2018-05-23] MEDS ORDERED: Metoprolol Tartrate 25 MG TAB PER TUBE SCH (22:45)
[2018-05-24] MEDS: Pantoprazole 40 MG GRANULES PACKET PER TUBE SCH (09:07)
[2018-05-24] MEDS: Glycopyrrolate 1 MG TAB PER TUBE SCH (09:07)
[2018-05-24] MEDS: Metoprolol Tartrate 25 MG TAB PER TUBE SCH (09:07)
[2018-05-24] MEDS: levETIRAcetam 500 mg/5 ml Oral Solution PER TUBE SCH (09:08)
[2018-05-24 11:52] VITALS: BP 139/75; TEMP 98.5
[2018-05-26 10:08] LABS: Cortisol,Free Ur 89 ug/L (Undefined); Cortisol,Ur Free 24 Hr 118 ug/24 hr (6-42)
--- NOTE | 2018-05-27 10:01 | DIS ---
DATE OF ADMISSION: 05/10/2018 DATE OF DISCHARGE: 05/24/2018 ADMITTING DIAGNOSES: 1. High fever, rule out sepsis. 2. Possible urinary tract infection. 3. Diabetes mellitus. 4. Status post craniectomy. 5. History of cerebral hemorrhage. 6. History of adenovirus pneumonia. 7. History of seizure disorder. 8. History of bronchial asthma. 9. Gastroesophageal reflux disease. 10. Hypertension. FINAL DIAGNOSES: 1. High fever, no evidence of sepsis at this time, fever resolved. 2. Urinary tract infection, treated. 3. Methicillin-resistant Staphylococcus aureus at the PEG tube site, also treated. 4. Status post craniectomy, needs bone flap surgery. 5. History of cerebral hemorrhage, status post craniectomy. 6. History of adenovirus pneumonia. 7. History of seizure disorder. 8. Gastroesophageal reflux disease. 9. History of bronchial asthma. 10. Hypertension. BRIEF SUMMARY OF HOSPITAL COURSE: Ms. Norwood is a 48-year-old female, admitted to the ICU. The patient actually was supposed to have bone flap surgery for her craniectomy area, but the patient was found to have fever of 101, she was admitted to the hospital. She was found to have a urinary tract infection. She was started on IV antibiotics. The next few days, the patient was monitored. Her urine culture revealed a growth of Enterococcus. She was started on nitrofurantoin. The patient was found to have drainage from PEG site area. It was cultured and showed MRSA. The patient was started on rifampin and doxycycline. Blood cultures showed growth of coagulase-negative Staph, which is contaminant. The patient, in the next few days, had a fever completely resolved, did not have anymore fever. She was tolerating tube feeding. The patient became tachycardic and medication with metoprolol dose was increased. After that, the tachycardia improved. The patient was seen by Dr. Villalta for the tachycardia who suggested increase in metoprolol dose. Also an echocardiogram was done The patient was also seen by Dr. Villegas in view of fever who suggested continue antibiotics, so patient was treated for 10 days of antibiotics and discontinued. The patient did not have anymore fever. GI consult in view of PEG tube site MRSA. he advised no need to change PEG tube at this time because it is most likely colonization. The patient was being evaluated for alf placement because previous alf declined to take the patient back. She stayed for a few days, just waiting for the placement. Finally alf agreed to take her and she was discharged. PHYSICAL EXAMINATION: GENERAL: At time of discharge, she was stable. VITAL SIGNS: Stable. DISCHARGE MEDICATIONS: 1. Robinul 1 mg subcu t.i.d. 2. Keppra 500 mg b.i.d. 3. Metoprolol 50 mg b.i.d. 4. Tylenol p.r.n. 5. DuoNeb q.i.d. p.r.n. 6. Pancrelipase 19792 units daily. 7. Protonix 40 mg daily. 8. Sodium bicarb 650. The patient will continue the tube feeding and she will need a followup appointment neurosurgery regarding a bone flap surgery. Job ID: [id number] MTDD
== END 2018-05-24 14:53 | DRG 689 ==
LOC: ERS 12:15 → 2SE 18:05
PROVIDERS: ADMIT Internal Medicine; ATTEND Internal Medicine
DX: N39.0 Urinary tract infection, site not specified (principal); G82.50 Quadriplegia, unspecified; K21.9 Gastro-esophageal reflux disease without esophagitis; I10 Essential (primary) hypertension; J45.909 Unspecified asthma, uncomplicated; G40.909 Epilepsy, unspecified, not intractable, without status epilepticus; F41.9 Anxiety disorder, unspecified; E11.9 Type 2 diabetes mellitus without complications; F31.9 Bipolar disorder, unspecified; Z22.322 Carrier or suspected carrier of Methicillin resistant Staphylococcus aureus; Z88.1 Allergy status to other antibiotic agents; Z88.5 Allergy status to narcotic agent; Z90.49 Acquired absence of other specified parts of digestive tract; Z79.4 Long term (current) use of insulin; Z88.2 Allergy status to sulfonamides; Z79.899 Other long term (current) drug therapy
CPT/HCPCS: 36415; 36416; 51701; 71045; 74177; 80048; 80053; 81003; 81015; 82530; 83605; 83835; 84439; 84443; 85025; 87040; 87070; 87077; 87086; 87149; 87186; 87205; 93005; 93306; 94760; 96361; 96365; 96366; 99292; A4353; J0696; J1815; J1956; J3490; Q9966

== ENCOUNTER 2018-06-13 06:29 | Inpatient (IN) | payer MEDICARE, MEDICAID ==
--- NOTE | 2018-06-13 07:52 | RAD ---
Supine chest: INDICATIONS: Sepsis COMPARISON: 05/10/2018 Lung enciso are clear. Elevated right hemidiaphragm is stable. A RUBBER BOOTS AND SHOES REPAIRER shunt catheter overlies the right chest. Heart and mediastinum unremarkable. IMPRESSION: No acute finding
[2018-06-13 07:55] LABS: #Lymphocytes 2.1 thou/uL (1.20-3.40); #Monocytes 0.6 thou/uL (0.11-0.59); #Neutrophils 11.2 thou/uL (1.40-6.50); %Basophils 0.2 % (0.0-1.0); %Eosinophils 0.2 % (0.0-10.0); %Lymphocytes 14.9 % (21.0-51.0); %Neutrophils 80.7 % (42.0-75.0); Hemoglobin 12.4 g/dL (12.0-16.0); Mean Corpuscular HGB CONC 31.5 g/dL (32.0-36.0); Mean Corpuscular Hemoglobin 27.2 pg (27.0-31.0); Mean Corpuscular Volume 86.4 fL (78.0-98.0); Mean Platelet Volume 8.4 fL (7.4-10.4); Platelet Count 370 thou/uL (130-400); Red Blood Cell (RBC) Count 4.55 mill/uL (4.20-5.40); White Blood Cell (WBC) Count 13.9 thou/uL (4.8-10.8)
[2018-06-13 07:59] LABS: Bilirubin Negative (Negative); Blood, Urine Negative (Negative); Clarity CLEAR (Clear); Glucose, Urine (Dipstick) Negative (Negative); Leukocyte Negative (Negative); Nitrite Negative (Negative); Protein, Urine (Dipstick) 30 mg/dL (Neg-Trace); Specific Gravity, Urine 1.022 (1.002-1.036)
[2018-06-13 08:02] LABS: Bacteria/HPF None Seen HPF (None Seen)
[2018-06-13 08:03] LABS: Pathc Cast-AUWi Flag 3.12 (0-2.49)
[2018-06-13 08:15] LABS: Transitional Epithelial 0-3 HPF (0-3)
[2018-06-13 08:16] LABS: ALT (SGPT) 60 U/L (8-55); AST (SGOT) 37 U/L (5-34); Albumin 3.8 g/dL (3.5-5.0); Alkaline Phosphatase 129 U/L (40-150); Anion Gap 18 mmol/L (10-20); BUN (Urea Nitrogen) 14 mg/dL (7.0-18.7); Bilirubin, Total 0.4 mg/dL (0.2-1.2); Calc. Creatinine Clearance 0 mL/min (70-130); Calcium 9.4 mg/dL (7.8-10.44); Carbon Dioxide 23 mmol/L (22-29); Chloride 98 mmol/L (98-107); Estimated GFR-MDRD Greater than 90; Globulin 4.4 g/dL (2.4-3.5); Glucose 119 mg/dL (70-105); Potassium 3.6 mmol/L (3.5-5.1); Protein, Total 8.2 g/dL (6.0-8.3); Sodium 135 mmol/L (136-145)
[2018-06-13 08:16] LABS: Hyaline Casts/LPF 0-3 HYALINE CAST LPF (0-3 Hyaline); Manual Microscopic Reviewed? No Path Casts Seen; Renal Epithelial 0-3 HPF (0-3)
[2018-06-13] MEDS ORDERED: Acetaminophen 650 MG Suppository ONE (08:36)
[2018-06-13] MEDS ORDERED: Sodium Chloride 0.9% 100 ML ONE (09:12)
[2018-06-13] MEDS ORDERED: cefTRIAXone\\ROCEPHIN 2 GM VIAL ONE (09:12)
--- NOTE | 2018-06-13 09:29 | CT ---
BRAIN CT WITHOUT IV CONTRAST: History: Fever. Urinary tract infection. History of craniotomy and shunt tube. Comparison: 05-02-18 FINDINGS: Again noted is very severe hydrocephalus, much worse on the right side with extensive right sided enc ephalomalacia and/or encephala changes with marked bulging laterally of the right craniotomy defect. Evidence for aneurysm coiling material in the right temporal region. Ventriculostomy tube in place po steriorly on the right side. No new focal mass. No acute hemorrhage. IMPRESSION: Extensive stable chronic changes. No acute hemorrhage. Unchanged from 05-02-18. POS: [facility]
--- NOTE | 2018-06-13 09:34 | CT ---
CT abdomen and pelvis with IV contrast HISTORY: Abdominal pain. Fever. Bleeding from PEG tube. COMPARISON: 05/16/2018. FINDINGS: Linear scarring at the right posterior lung base is unchanged in appearance. Percutaneous f eeding catheter to the stomach remains in place. No extraluminal fluid is apparent. Stomach is decompressed. No fluid collections around the insertion site. Ventriculoperitoneal shunt partially visualized. No evidence of complication. Gallbladder surgically absent. The oval low density 3.9 cm mass centered at the right adrenal gland is unchanged. Small amount of hyperdense material within the left dependent portion of urinary bladder is favored to be r elated to contrast given the absence of stones on recent CT. IMPRESSION: Chronic-type findings are stable. No complication of the PEG is apparent.
[2018-06-13] MEDS ORDERED: ISOVUE-370 76%-LOCM 1 ML ONE (11:42)
[2018-06-13] MEDS ORDERED: Ondansetron PF 4 MG/2 ML Vial IVP PRN (12:41)
[2018-06-13] MEDS: Sodium Chloride 0.9% 1,000 ML IV SCH ×2 (13:30→22:22)
--- NOTE | 2018-06-13 14:44 | PDOC.FPRHP ---
- History of Present Illness Chief Complaint: Blood from peg tube History of Present Illness: This is a 48 yo female with a pmh of hx of hemorrhagic stroke, DM2, GERD, HTN, asthma, who presents to the ED from [facility] with a cc of blood coming from around her peg tube. Two aunts in the room report pt had a recent change in her peg tube by Dr. Marie. They state that before the Peg tube had mold in it. In addition, pt was found to have a fever in the ED of 101.2. Family denies any exposure but report she was being treated for a UTI 2 weeks ago. Pt is minimally responsive which is her baseline. ED Course: Rocephin Tylenol NS 1 L - Allergies/Adverse Reactions Allergies Allergy/AdvReac Type Severity Reaction Status Date / Time piperacillin [From Zosyn] Allergy Severe Rash Verified 05/09/18 15:36 tazobactam [From Zosyn] Allergy Severe Rash Verified 05/09/18 15:36 vancomycin Allergy Severe Short of Verified 05/09/18 15:36 Breath codeine Allergy Verified 05/09/18 15:36 - Home Medications Medication Instructions Recorded Confirmed Type levETIRAcetam [Keppra Oral 500 mg PER TUBE BID 12/25/17 06/13/18 History Solution] Acetaminophen [Tylenol Elixir] 650 mg PER TUBE Q6H PRN udcup 05/24/18 06/13/18 Rx Bisacodyl [Dulcolax] [address] DAILY PRN 06/13/18 06/13/18 History Lactose-Reduced Food/Fiber [Jevity 1,500 ml PER TUBE DAILY 06/13/18 06/13/18 History 1.2 Reilly Liquid] Metoprolol Tartrate [Lopressor] 12.5 mg PER TUBE BID 06/13/18 06/13/18 History hydrOXYzine [Atarax Syrup 10 10 mg PER TUBE TID PRN 06/13/18 06/13/18 History MG/5ML] - History PMHx: hx of hemorrhagic stroke, DM2, GERD, HTN, asthma, epilepsy PSHx: R frontal/R temporal hemicraniectomy, endovascualr repar of R-MCA bifurcated aneurysm, cholecystectomy, trach placed (removed by pt), PEG placement FHx: non contributory Social: Denies YOLANDE - Review of Systems ROS unobtainable: due to mental status - Vital signs BP: 131/94 HR: 115 RR: 22 Tmax: 101.2 Pox: 100% on 2L Wt: 100 kg - Physical Exam Constitutional: other (Minimally resposive, GSC E1V2M5) HEENT: PERRLA, conjunctiva clear, TM's clear and intact, MMM Neck: trachea midline, no JVD Chest: no lesions Heart: RRR, normal S1/S2, pulses present Lungs: good air movement, no wheezing -Lungs: Right sided crackles, likely upper airway radiation Abdomen: soft, bowel sounds present, no masses/distention, other (PEG tube in place, no active bleeding, small amount of dried blood surrounding insertion) Musculoskeletal: normal structure Neurological: other (Unable to assess) Skin: no rash/lesions, capillary refill <2 seconds Heme/Lymphatic: no unusual bruising or bleeding, no purpura FMR H&P: Results - Labs Result Diagrams: 06/16/18 05:07 06/16/18 05:07 Lab results: WBC 13.9 thou/uL (4.8-10.8) H 06/13/18 07:29 Hgb 12.4 g/dL (12.0-16.0) 06/13/18 07:29 Hct 39.3 % (36.0-47.0) 06/13/18 07:29 MCV 86.4 fL (78.0-98.0) 06/13/18 07:29 Plt Count 370 thou/uL (130-400) 06/13/18 07:29 Neutrophils % 80.7 % (42.0-75.0) H 06/13/18 07:29 Sodium 135 mmol/L (136-145) L 06/13/18 07:29 Potassium 3.6 mmol/L (3.5-5.1) 06/13/18 07:29 Chloride 98 mmol/L (98-107) 06/13/18 07:29 Carbon Dioxide 23 mmol/L (22-29) 06/13/18 07:29 BUN 14 mg/dL (7.0-18.7) 06/13/18 07:29 Creatinine 0.57 mg/dL (0.6-1.1) L 06/13/18 07:29 Glucose 119 mg/dL (70-105) H 06/13/18 07:29 Lactic Acid 1.8 mmol/L (0.5-2.2) 06/13/18 07:29 Calcium 9.4 mg/dL (7.8-10.44) 06/13/18 07:29 Total Bilirubin 0.4 mg/dL (0.2-1.2) 06/13/18 07:29 AST 37 U/L (5-34) H 06/13/18 07:29 ALT 60 U/L (8-55) H 06/13/18 07:29 Alkaline Phosphatase 129 U/L (40-150) 06/13/18 07:29 Serum Total Protein 8.2 g/dL (6.0-8.3) 06/13/18 07:29 Albumin 3.8 g/dL (3.5-5.0) 06/13/18 07:29 Urine Ketones Negative mg/dL (Negative) 06/13/18 07:18 Urine Blood Negative (Negative) 06/13/18 07:18 Urine Nitrite Negative (Negative) 06/13/18 07:18 Ur Leukocyte Esterase Negative (Negative) 06/13/18 07:18 Urine RBC 4-6 HPF (0-3) 06/13/18 07:18 Urine WBC 4-6 HPF (0-3) H 06/13/18 07:18 Ur Squamous Epith Cells 4-6 HPF (0-3) H 06/13/18 07:18 Urine Bacteria None Seen HPF (None Seen) 06/13/18 07:18 - Radiology Interpretation CT scan - head Status: report reviewed by me (Extensive stable chronic changes. No acute hemorrhage. Unchanged from 05-02-18.) CT scan - abdomen Status: report reviewed by me (Chronic-type findings are stable. No complication of the PEG is apparent.) Chest x-ray Status: report reviewed by me (No acute findings) FMR H&P: A/P - Problem List (1) Fever Current Visit: Yes Status: Acute Code(s): R50.9 - FEVER, UNSPECIFIED (2) DM2 (diabetes mellitus, type 2) Current Visit: No Status: Chronic Qualifiers: Diabetes mellitus fpc insulin use: without terminal supervisor use Diabetes mellitus complication status: without complication Qualified Code(s): E11.9 - Type 2 diabetes mellitus without complications (3) GERD (gastroesophageal reflux disease) Current Visit: No Status: Chronic Code(s): K21.9 - GASTRO-ESOPHAGEAL REFLUX DISEASE WITHOUT ESOPHAGITIS (4) HTN (hypertension) Current Visit: No Status: Chronic Code(s): I10 - ESSENTIAL (PRIMARY) HYPERTENSION - Plan This is a 48 yo female with a pmh of hemorrhagic stroke, DM2, GERD, HTN, asthma Bleeding from PEG tube -Minimal evidence of bleeding at time of exam -Hgb 12.4, will recheck in AM -Will consult Dr. aMrie if need Fever of unknown source -DDx Neurogenic vs. shunt -Lactic acid 1.8, procal 0.06, WBC 13.9 -On rocephin, Neurology consulted -Plans to tap shunt by neurology -Tylenol for fever HTN -Continue home meds GERD -Continue home meds Hx of aneurysm with repair and shunt placement -Monitor for changes in vs, consider reculturing if fevers again. 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 Presents to ED from [facility] after bleeding from Gtube. In ED pt noted to have a fever of 101.2. Placed on Rocephin. REVIEW OF SYSTEMS: Unable to obtain - Pertinent findings PHYSICAL EXAMINATION: General: not alert Heart/Cardiovascular System: No r/m/g. RRR. Cap refill < 3 seconds, good pulses in all extremities Lungs/Respiratory System: clear to auscultation bilaterally. No increased work of breathing. Room air. Extremities: Warm extremities. No cyanosis or edema. Skin: No lesions, rashes, or ulcers PROBLEM LISTANDPLAN: # G-Tube Bleed- Only evidence of minor hemorrhage present. Will consult surgery as needed. # Fever- Incidental finding in ED. Pt with extensive risk of resistant infections. Will discuss with attending regarding antibiotic options. Will leave on Ceftriaxone now and escalate abx if fever persists. UA/CXR unremarkable now and no source of infection. VSS # Chronic Brain injury with Shunt- Neurosurgery consulted from ED and plan to take sample from shunt for culture. Bone flap surgery on hold for recent fevers. # DM- continue home insulin regimen - Plan Date/Time: 06/13/18 1443 I, Bernardo Kyle, have evaluated this patient and agree with findings/plan as outlined by senior insight manager international resident. Pertinent changes/additions are listed here. PHYSICAL EXAMINATION: General: not alert Heart/Cardiovascular System: No r/m/g. RRR. Cap refill < 3 seconds, good pulses in all extremities Lungs/Respiratory System: clear to auscultation bilaterally. No increased work of breathing. Room air. Extremities: Warm extremities. No cyanosis or edema. Skin: No lesions, rashes, or ulcers PROBLEM LISTANDPLAN: # G-Tube Bleed- Only evidence of minor hemorrhage present. Will consult surgery as needed. # Fever- Incidental finding in ED. Pt with extensive risk of resistant infections. Will discuss with attending regarding antibiotic options. Will leave on Ceftriaxone now and escalate abx if fever persists. UA/CXR unremarkable now and no source of infection. VSS # Chronic Brain injury with Shunt- Neurosurgery consulted from ED and plan to take sample from shunt for culture. Bone flap surgery on hold for recent fevers. # DM- continue home insulin regimen Addendum - Attending - Attending Attestation Date/Time: 06/13/18 1935 I personally evaluated the patient and discussed the management with Dr. June and Dr. Kyle I agree with the History, Examination, Assessment and Plan documented above with any addition or exceptions noted below. 48 yo female sent for evaluation of PEG tube complaints and found to have a fever. Will obs patient overnight. Infection workup pending along with cultures. At present does not appear to be a systemic bacterial infection. Shunt culture to be collected in AM. Has received antibx and will be covered for 24 hours. Will trend labs and vitals. No concerns regarding PEG tube at this time. Add respiratory pathogen panel. Osvaldo
[2018-06-13] MEDS: Famotidine 20 MG TAB PO SCH (21:58)
[2018-06-13 22:40] VITALS: BMI 32.7
[2018-06-14] MEDS: Acetaminophen 650 MG Suppository PR PRN (04:38)
[2018-06-14] MEDS ORDERED: Bisacodyl 10 MG SUPP PR PRN (06:16)
[2018-06-14] MEDS ORDERED: Acetaminophen 650 MG/20.3 ML UDCUP PER TUBE PRN (06:16)
[2018-06-14] MEDS ORDERED: hydrOXYzine 10 MG/5 ML UDCUP PER TUBE PRN (06:16)
--- NOTE | 2018-06-14 06:17 | PDOC.FM ---
- Subjective Subjective: Afebrile overnight. Pt has held tube feeds for potential procedure today. Nursing reports increased swelling of pt hemicraniotomy. - Objective MAR Reviewed: Yes Vital Signs & Weight: Vital Signs (12 hours) Temp Pulse Resp BP Pulse Ox 06/14/18 04:00 99.5 F 90 20 154/95 H 100 06/14/18 00:35 98.6 F 90 18 147/93 H 100 06/13/18 20:40 98.9 F 93 18 128/74 100 Weight Weight 81.148 kg I&O: 06/12/18 06/13/18 06/14/18 06:59 06:59 06:59 Intake Total 240 Balance 240 Result Diagrams: 06/14/18 07:07 06/14/18 07:06 Phys Exam - Physical Examination Constitutional: NAD GCS [id number] HEENT: moist MMs Increased swelling of right craniotomy Neck: no JVD Respiratory: no wheezing, clear to auscultation bilateral Cardiovascular: RRR, no significant murmur Gastrointestinal: soft, no distention, positive bowel sounds Musculoskeletal: pulses present, edema present (trace) Skin: cap refill <2 seconds Dx/Plan (1) Fever Code(s): R50.9 - FEVER, UNSPECIFIED Status: Acute (2) DM2 (diabetes mellitus, type 2) Status: Chronic Qualifiers: Diabetes mellitus rn long term care insulin use: without rn long term care use Diabetes mellitus complication status: without complication Qualified Code(s): E11.9 - Type 2 diabetes mellitus without complications (3) GERD (gastroesophageal reflux disease) Code(s): K21.9 - GASTRO-ESOPHAGEAL REFLUX DISEASE WITHOUT ESOPHAGITIS Status: Chronic (4) HTN (hypertension) Code(s): I10 - ESSENTIAL (PRIMARY) HYPERTENSION Status: Chronic - Plan Plan: This is a 48 yo female with a pmh of hemorrhagic stroke, DM2, GERD, HTN, asthma Bleeding from PEG tube -Minimal evidence of bleeding at time of exam -Hgb 12.4, will recheck in AM -Will consult Dr. Marie if need Fever of unknown source -DDx Neurogenic vs. shunt -Lactic acid 1.8, procal 0.06, WBC 13.9 -On rocephin, Neurology consulted -Plans to tap shunt by neurology -Tylenol for fever -Afebrile overnight HTN -Continue home meds Hypokalemia -2.6 this morning, replacing and recheck BMP at 1600 GERD -Continue home meds Hx of aneurysm with repair and shunt placement -Monitor for changes in vs, consider reculturing if fevers again. Addendum - Attending - Attending Attestation Date/Time: 06/14/18 9328 I personally evaluated the patient and discussed the management with Dr. June. I agree with the History, Examination, Assessment and Plan documented above with any addition or exceptions noted below. Patient overall stable. WBC downtrending and no fever. NSGY consulted who plans for shunt tap to evaluate for infection. Continue Rocephin for now. Cultures pending. Has also had bump in LFTs, consider adenovirus infection if workup negative. Decrease in Hgb, will continue to trend and consult GenSurg if continues to decrease for concern of bleed related to PEG tube though no current bleeding. Replete K.
[2018-06-14 07:41] LABS: Anion Gap 12 mmol/L (10-20); BUN (Urea Nitrogen) 10 mg/dL (7.0-18.7); Calc. Creatinine Clearance 192 mL/min (70-130); Calcium 8.6 mg/dL (7.8-10.44); Carbon Dioxide 25 mmol/L (22-29); Chloride 106 mmol/L (98-107); Estimated GFR-MDRD Greater than 90; Glucose 148 mg/dL (70-105); Sodium 140 mmol/L (136-145)
[2018-06-14 07:41] LABS: #Eosinphils 0.1 thou/uL (0.0-0.7); #Lymphocytes 2.1 thou/uL (1.20-3.40); #Monocytes 0.6 thou/uL (0.11-0.59); #Neutrophils 5.7 thou/uL (1.40-6.50); %Basophils 0.5 % (0.0-1.0); %Lymphocytes 25.1 % (21.0-51.0); %Monocytes 6.6 % (0.0-10.0); %Neutrophils 66.9 % (42.0-75.0); Hemoglobin 9.2 g/dL (12.0-16.0); Mean Corpuscular HGB CONC 30.7 g/dL (32.0-36.0); Mean Corpuscular Hemoglobin 26.8 pg (27.0-31.0); Mean Corpuscular Volume 87.3 fL (78.0-98.0); Mean Platelet Volume 7.6 fL (7.4-10.4); Platelet Count 370 thou/uL (130-400); RBC Distribution Width 16.4 % (11.5-14.5); Red Blood Cell (RBC) Count 3.43 mill/uL (4.20-5.40); White Blood Cell (WBC) Count 8.5 thou/uL (4.8-10.8)
[2018-06-14 07:45] LABS: Potassium 2.6 mmol/L (3.5-5.1)
[2018-06-14 08:49] LABS: Band 3 % (5-11); Eosinophils 1 % (0-10); Hypochromia SLIGHT = 6-15 cells (100X) (0-5/hpf); Lymphocytes 23 % (21-51); MDiff Complete? YES; Monocytes 7 % (0-10); Neutrophil 66 % (42-75); Platelet Morphology Comment Appears Adequate; Polychromasia SLIGHT = 2-3 cells (100X) (0-2/hpf)
[2018-06-14] MEDS ORDERED: [UNRECOGNIZED DRUG - OTHER] PER TUBE SCH (09:00)
[2018-06-14] MEDS ORDERED: FIBER PER TUBE SCH (09:00)
[2018-06-14] MEDS ORDERED: LACTOSE REDUCED FOOD PER TUBE SCH (09:00)
[2018-06-14] MEDS: Potassium Chloride 20 MEQ in Premix Bag 1 BAG IVPB SCH ×3 (09:41→12:38)
[2018-06-14] MEDS: Sodium Chloride 0.9% 1,000 ML IV SCH ×3 (09:41→20:57)
[2018-06-14] MEDS: Famotidine 20 MG TAB PO SCH ×2 (09:42→20:56)
[2018-06-14] MEDS: levETIRAcetam 500 mg/5 ml Oral Solution PER TUBE SCH ×2 (09:42→20:55)
[2018-06-14] MEDS: Metoprolol Tartrate 25 MG TAB PER TUBE SCH ×2 (09:42→20:56)
[2018-06-14] MEDS ORDERED: Potassium Chloride 20 MEQ/100 ML PREMIX BAG IVPB SCH (10:00)
[2018-06-14] MEDS: cefTRIAXone\\ROCEPHIN 2 GM in Sodium Chloride 0.9% 100 ML IVPB SCH (10:48)
[2018-06-14 18:11] LABS: Anion Gap 12 mmol/L (10-20); BUN (Urea Nitrogen) 7 mg/dL (7.0-18.7); Calc. Creatinine Clearance 192 mL/min (70-130); Calcium 8.8 mg/dL (7.8-10.44); Carbon Dioxide 24 mmol/L (22-29); Chloride 105 mmol/L (98-107); Estimated GFR-MDRD Greater than 90; Glucose 108 mg/dL (70-105); Sodium 137 mmol/L (136-145)
[2018-06-14 19:34] LABS: Anisocytosis SLIGHT = 6-15 cells (100X) (0-5/hpf); Band 11 % (5-11); Eosinophils 2 % (0-10); Hypochromia SLIGHT = 6-15 cells (100X) (0-5/hpf); Lymphocytes 3 % (21-51); MDiff Complete? YES; Mean Corpuscular HGB CONC 31.6 g/dL (32.0-36.0); Mean Corpuscular Hemoglobin 26.9 pg (27.0-31.0); Mean Corpuscular Volume 85.3 fL (78.0-98.0); Mean Platelet Volume 8.6 fL (7.4-10.4); Monocytes 2 % (0-10); Neutrophil 81 % (42-75); Platelet Count 305 thou/uL (130-400); Platelet Morphology Comment Appears Adequate; RBC Distribution Width 16.4 % (11.5-14.5); Red Blood Cell (RBC) Count 3.73 mill/uL (4.20-5.40); White Blood Cell (WBC) Count 10.9 thou/uL (4.8-10.8)
[2018-06-14] MEDS: Linezolid 600 MG in Premix Bag 1 BAG IVPB SCH (20:55)
--- NOTE | 2018-06-15 05:19 | PDOC.FM ---
- Subjective Subjective: Patient laying in bed, appears in no acute distress. Follows commands. No acute events overnight. - Objective Vital Signs & Weight: Vital Signs (12 hours) Temp Pulse Resp BP Pulse Ox 06/15/18 00:00 98.7 F 88 20 142/97 H 99 06/14/18 20:35 98.8 F 95 18 144/77 H 99 Weight Admit Weight 81.148 kg Weight 81.148 kg I&O: 06/13/18 06/14/18 06/15/18 06:59 06:59 06:59 Intake Total 0 3067 Output Total 0 Balance 0 3067 Result Diagrams: 06/14/18 17:43 06/14/18 17:43 Phys Exam - Physical Examination Constitutional: NAD Impressive swelling Rt temporal region Neck: supple trach scar present Respiratory: no wheezing, clear to auscultation bilateral Cardiovascular: RRR, no significant murmur Gastrointestinal: soft, non-tender, positive bowel sounds Musculoskeletal: pulses present follows commands, no words, opens eyes spontaneously Deviation from normal: follows commands, no words, opens eyes spontaneously Skin: normal turgor, cap refill <2 seconds Dx/Plan (1) Fever Code(s): R50.9 - FEVER, UNSPECIFIED Status: Acute (2) Hypokalemia Code(s): E87.6 - HYPOKALEMIA Status: Acute (3) Hx of aneurysm Code(s): Z86.79 - PERSONAL HISTORY OF OTHER DISEASES OF THE CIRCULATORY SYSTEM Status: Chronic (4) Asthma Code(s): J45.909 - UNSPECIFIED ASTHMA, UNCOMPLICATED Status: Chronic (5) Hydrocephalus Code(s): G91.9 - HYDROCEPHALUS, UNSPECIFIED Status: Acute (6) DM2 (diabetes mellitus, type 2) Status: Chronic Qualifiers: Diabetes mellitus [facility] insulin use: without [facility] use Diabetes mellitus complication status: without complication Qualified Code(s): E11.9 - Type 2 diabetes mellitus without complications (7) GERD (gastroesophageal reflux disease) Code(s): K21.9 - GASTRO-ESOPHAGEAL REFLUX DISEASE WITHOUT ESOPHAGITIS Status: Chronic (8) HTN (hypertension) Code(s): I10 - ESSENTIAL (PRIMARY) HYPERTENSION Status: Chronic - Plan Plan: This is a 48 yo female with a pmh of hemorrhagic stroke, DM2, GERD, HTN, asthma Bleeding from PEG tube -Minimal evidence of bleeding -Hgb now stable. 12.4-> 9.2-> 10.0 Fever of unknown source, concern for bacteremia -DDx Neurogenic vs. shunt -Lactic acid 1.8, procal 0.06, WBC 13.9 -> 8 -> 10.9 -On rocephin (06/13) and linezolid (06/14) -2/2 blood cultures + for MRSE, which is normal skin josué. True bacteremia vs contaminant -Neurology consulted, Dr. Jeong, appreciate recommendations -Plans to tap shunt by neurology -Tylenol for fever -Afebrile overnight HTN -Continue home meds Hypokalemia, resolved -2.6 -> 4.0 -Monitor and replace as necessary GERD -Continue home meds Hx of aneurysm with repair and shunt placement -Monitor for changes in vs, consider re-culturing if fevers again. Addendum - Attending - Attending Attestation Date/Time: 06/15/18 0370 I personally evaluated the patient and discussed the management with Dr. German. I agree with the History, Examination, Assessment and Plan documented above with any addition or exceptions noted below. Patient overall stable. Here for fever and concern for infection. BCx growing MRSE 2/2 and so Linezolid has been started. Repeat cultures as this is likely contaminant based on her lack of otherwise signs or symptoms of bacteremia. She will undergo another attempt to tap into her shunt today to r/o infection there by NSGY. Await further recs from them. Continue Rocephin. Her H/H is stable and her likely bleeding around PEG tube was minimal and not significant.
[2018-06-15] MEDS: Sodium Chloride 0.9% 1,000 ML IV SCH ×2 (06:41→09:14)
[2018-06-15] MEDS ORDERED: hydrALAZINE 20 MG/ML VIAL SLOW IVP PRN (07:55)
[2018-06-15] MEDS ORDERED: Labetalol HCl 100 MG/20 ML VIAL SLOW IVP PRN (07:55)
[2018-06-15] MEDS: Linezolid 600 MG in Premix Bag 1 BAG IVPB SCH ×2 (09:14→20:19)
[2018-06-15] MEDS: levETIRAcetam 500 mg/5 ml Oral Solution PER TUBE SCH ×2 (09:17→20:20)
[2018-06-15] MEDS: Metoprolol Tartrate 25 MG TAB PER TUBE SCH ×2 (09:17→20:21)
[2018-06-15] MEDS: Bisacodyl 10 MG SUPP PR SCH (09:18)
[2018-06-15] MEDS: Famotidine 20 MG TAB PO SCH ×2 (09:18→20:20)
[2018-06-15] MEDS: cefTRIAXone\\ROCEPHIN 2 GM in Sodium Chloride 0.9% 100 ML IVPB SCH (13:01)
--- NOTE | 2018-06-15 19:39 | EKG ---
Test Reason : Blood Pressure : / mmHG Vent. Rate : 112 BPM Atrial Rate : 112 BPM P-R Int : 120 ms QRS Dur : 082 ms QT Int : 314 ms P-R-T Axes : 047 013 049 degrees QTc Int : 428 ms Sinus tachycardia Nonspecific ST abnormality Abnormal ECG Confirmed by ARIANNA LEDESMA DO ([id number]), graphics editor MAXI DUPREE ([id number]) on 06/15/2018 7:37:29 PM Referred By: Confirmed By:ARIANNA LEDESMA DO
[2018-06-16] MEDS: Sodium Chloride 0.9% 1,000 ML IV SCH ×3 (01:30→21:01)
[2018-06-16 06:03] LABS: #Eosinphils 0.2 thou/uL (0.0-0.7); #Lymphocytes 1.6 thou/uL (1.20-3.40); #Monocytes 0.2 thou/uL (0.11-0.59); #Neutrophils 5.2 thou/uL (1.40-6.50); %Basophils 0.6 % (0.0-1.0); %Eosinophils 2.2 % (0.0-10.0); %Lymphocytes 22.2 % (21.0-51.0); %Monocytes 2.6 % (0.0-10.0); %Neutrophils 72.3 % (42.0-75.0); Mean Corpuscular HGB CONC 31.9 g/dL (32.0-36.0); Mean Corpuscular Hemoglobin 27.6 pg (27.0-31.0); Mean Corpuscular Volume 86.6 fL (78.0-98.0); Mean Platelet Volume 7.6 fL (7.4-10.4); Platelet Count 351 thou/uL (130-400); RBC Distribution Width 16.7 % (11.5-14.5); Red Blood Cell (RBC) Count 3.62 mill/uL (4.20-5.40); White Blood Cell (WBC) Count 7.2 thou/uL (4.8-10.8)
[2018-06-16 06:19] LABS: Anion Gap 12 mmol/L (10-20); BUN (Urea Nitrogen) 5 mg/dL (7.0-18.7); Calc. Creatinine Clearance 214 mL/min (70-130); Carbon Dioxide 24 mmol/L (22-29); Chloride 102 mmol/L (98-107); Estimated GFR-MDRD Greater than 90; Glucose 108 mg/dL (70-105); Potassium 3.5 mmol/L (3.5-5.1); Sodium 134 mmol/L (136-145)
--- NOTE | 2018-06-16 06:45 | PDOC.FM ---
- Subjective Subjective: Patient sleeping peacefully on exam this morning. No acute distress. She has been tolerating her tube feeds. - Objective Vital Signs & Weight: Vital Signs (12 hours) Temp Pulse Resp BP Pulse Ox 06/16/18 03:36 98.4 F 79 20 160/86 H 100 06/16/18 00:41 84 163/95 H 06/16/18 00:00 98.2 F 84 14 168/102 H 96 06/15/18 20:00 99.3 F 98 14 143/94 H 100 Weight Admit Weight 81.148 kg Weight 81.148 kg I&O: 06/14/18 06/15/18 06/16/18 06:59 06:59 06:59 Intake Total 2110 5067 3900 Output Total 0 1250 Balance 2110 5067 2650 Result Diagrams: 06/16/18 05:07 06/16/18 05:07 Phys Exam - Physical Examination Constitutional: NAD sleeping peacefully, no acute distress Respiratory: no wheezing, clear to auscultation bilateral Cardiovascular: RRR, no significant murmur Gastrointestinal: soft, non-tender, no distention Musculoskeletal: no edema, pulses present Skin: normal turgor, cap refill <2 seconds Dx/Plan (1) Fever Code(s): R50.9 - FEVER, UNSPECIFIED Status: Acute (2) Hypokalemia Code(s): E87.6 - HYPOKALEMIA Status: Acute (3) Hx of aneurysm Code(s): Z86.79 - PERSONAL HISTORY OF OTHER DISEASES OF THE CIRCULATORY SYSTEM Status: Chronic (4) Asthma Code(s): J45.909 - UNSPECIFIED ASTHMA, UNCOMPLICATED Status: Chronic (5) Hydrocephalus Code(s): G91.9 - HYDROCEPHALUS, UNSPECIFIED Status: Acute (6) DM2 (diabetes mellitus, type 2) Status: Chronic Qualifiers: Diabetes mellitus custodial insulin use: without custodial use Diabetes mellitus complication status: without complication Qualified Code(s): E11.9 - Type 2 diabetes mellitus without complications (7) GERD (gastroesophageal reflux disease) Code(s): K21.9 - GASTRO-ESOPHAGEAL REFLUX DISEASE WITHOUT ESOPHAGITIS Status: Chronic (8) HTN (hypertension) Code(s): I10 - ESSENTIAL (PRIMARY) HYPERTENSION Status: Chronic - Plan Plan: This is a 48 yo female with a pmh of hemorrhagic stroke, DM2, GERD, HTN, asthma Fever of unknown source, concern for bacteremia -DDx Neurogenic vs. shunt -Lactic acid 1.8, procal 0.06, WBC 13.9 -> 8 -> 10.9 -On rocephin (06/13) and linezolid (06/14) -2/2 blood cultures + for MRSE, which is normal skin josué. True bacteremia vs contaminant -Dr. Villegas consulted ID, appreciate recommendations -Neurology consulted, Dr. Jeong, appreciate recommendations -Plans to tap shunt by neurology -Tylenol for fever -Afebrile overnight Bleeding from PEG tube -Minimal evidence of bleeding -Hgb stable HTN -Continue home meds Hypokalemia, resolved -Monitor and replace as necessary GERD -Continue home meds Hx of aneurysm with repair and shunt placement -Monitor for changes in vs, consider re-culturing if fevers again. Transaminitis -AST/ALT 37/60, follow up outpatient Addendum - Attending - Attending Attestation Date/Time: 06/16/18 0908 I personally evaluated the patient and discussed the management with Dr. German. I agree with the History, Examination, Assessment and Plan documented above with any addition or exceptions noted below. Patient here for fever without a source. Continues on Rocephin for coverage of CSF infection and Lenezolid for possible MRSE though I suspect this is contamination related. WBC stable and afebrile during her stay here. Awaiting NSGY to obtain sample from her shunt. Otherwise, continue current mgmt. Electrolytes improved.
[2018-06-16] MEDS: Linezolid 600 MG in Premix Bag 1 BAG IVPB SCH ×2 (08:26→20:55)
[2018-06-16] MEDS: Metoprolol Tartrate 25 MG TAB PER TUBE SCH ×2 (08:27→20:59)
[2018-06-16] MEDS: levETIRAcetam 500 mg/5 ml Oral Solution PER TUBE SCH ×2 (08:27→20:59)
[2018-06-16] MEDS: Bisacodyl 10 MG SUPP PR SCH (08:27)
[2018-06-16] MEDS: Famotidine 20 MG TAB PO SCH ×2 (08:27→20:58)
--- NOTE | 2018-06-16 09:43 | PRG ---
DATE OF SERVICE: 06/16/2018 Ms. Norwood is known to me for distant treatment of right MCA bifurcation region aneurysm that within the same hospitalization. 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 With past several months, we have been wishing to return the bone flap, but she has been hospitalized on numerous occasions due to various infections, which have prevented us from doing so. She returns a few days ago now again with high-grade fever. We were asked to consider whether or not her shunt, which was placed a couple of months ago, could be a potential source or whether she could have meningitis. She continues to have protuberant skin flap, which has been the case now for several months. My suspicion is quite low at this time for meningitis. I did palpate her shunt and it appears to be functional. Her fevers have improved since her hospitalization. At this time, there are no additional plans to revise her shunt or perform any other neurosurgical procedure upon the time of this admission. We will continue to follow along and make an attempt to return the bone flap once some of her infectious processes subside. This will be done over the next few months. Job ID: [id number]
[2018-06-16] MEDS: cefTRIAXone\\ROCEPHIN 2 GM in Sodium Chloride 0.9% 100 ML IVPB SCH (10:31)
[2018-06-16] MEDS: Acetaminophen 650 MG Suppository PR PRN (14:01)
[2018-06-17] MEDS: Sodium Chloride 0.9% 1,000 ML IV SCH ×2 (05:24→18:23)
[2018-06-17 07:03] LABS: #Eosinphils 0.2 thou/uL (0.0-0.7); #Lymphocytes 1.3 thou/uL (1.20-3.40); #Monocytes 0.2 thou/uL (0.11-0.59); %Basophils 0.2 % (0.0-1.0); %Eosinophils 3.6 % (0.0-10.0); %Lymphocytes 22.9 % (21.0-51.0); %Neutrophils 69.3 % (42.0-75.0); Mean Corpuscular HGB CONC 32.1 g/dL (32.0-36.0); Mean Corpuscular Volume 87.4 fL (78.0-98.0); Mean Platelet Volume 7.5 fL (7.4-10.4); Platelet Count 343 thou/uL (130-400); RBC Distribution Width 16.3 % (11.5-14.5); Red Blood Cell (RBC) Count 3.56 mill/uL (4.20-5.40); White Blood Cell (WBC) Count 5.8 thou/uL (4.8-10.8)
[2018-06-17 07:21] LABS: Anion Gap 12 mmol/L (10-20); BUN (Urea Nitrogen) 6 mg/dL (7.0-18.7); Calc. Creatinine Clearance 188 mL/min (70-130); Calcium 8.7 mg/dL (7.8-10.44); Carbon Dioxide 24 mmol/L (22-29); Chloride 105 mmol/L (98-107); Estimated GFR-MDRD Greater than 90; Glucose 148 mg/dL (70-105); Potassium 3.2 mmol/L (3.5-5.1); Sodium 138 mmol/L (136-145)
--- NOTE | 2018-06-17 08:51 | CON ---
DATE OF CONSULTATION: 06/15/2018 REASON FOR CONSULTATION: Fever. HISTORY OF PRESENT ILLNESS: A 48-year-old patient known to us from multiple prior admissions with a history of intracerebral hemorrhage showed emergent hemicraniectomy for decompression. Subsequently had a Dilantin hypersensitivity reaction, after that, aspiration pneumonia episode. She had an adenovirus and rhinovirus infection and had an another episode of fever and tachycardia and evidence of pulmonary embolism and then an episode of aspiration. During these episodes, the microbiology had been unremarkable. She had a little bit of PEG tube drainage with MRSA probably colonization. She had Enterococcus faecalis in the urine culture and felt to be colonizer and the last imaging studies include an abdomen and pelvis CT from 05/16, which showed atelectasis right lung base. The DRILL RIG OPERATOR HELPER shunt tubing some vascular calcifications, but no other abnormalities. This time, she is admitted because of fever and also blood coming from the PEG tube exit site. Reportedly, she had a PEG tube exchange recently completed in the hospital. Initial vital signs , BP 130/94, heart rate 115, and temperature 101.2. Exam showed reported good air movement. No wheezing. S1 and S2. Regular rate. Abdomen is soft. Normal bowel sounds. Small amount of dried blood around the insertion site of the PEG tube. IMAGING STUDIES: She had an abdomen and pelvis CT on admission which showed chronic findings without any active complication apparent. No complications related to the DRILL RIG OPERATOR HELPER shunt either. Since admission, temperature has remained normal. T-max was 99.5. Right now, she is awake, but does not interact with the examiner as it is usual in her state. She blinks her eyes intermittently. There has been no reported diarrhea. No respiratory symptoms. PAST MEDICAL HISTORY: Includes, 1. Intracranial hemorrhage. 2. Craniectomy. 3. Type 2 diabetes. 4. DRILL RIG OPERATOR HELPER shunt. 5. Aspiration pneumonia. 6. Dilantin associated hypersensitivity reaction. 7. Pulmonary embolism. 8. Adenoviral pneumonia. PAST SURGICAL HISTORY: 1. Cholecystectomy. 2. PEG tube placement. 3. Repair of brain aneurysm. ALLERGIES: CODEINE, SULFA DRUGS, VANCOMYCIN, AND ZOSYN. FAMILY HISTORY: Noncontributory. SOCIAL HISTORY: [facility] Resident. No smoking history. CURRENT MEDICATIONS: Include, 1. Dulcolax. 2. Ceftriaxone. 3. Pepcid. 4. Apresoline. 5. Atarax. 6. Keppra. 7. Linezolid. 8. Lopressor. PHYSICAL EXAMINATION: VITAL SIGNS: T-max 99.4, blood pressure 140/90, pulse 91, respirations 16, and O2 saturation 99%. SKIN: Minor gluteal areas of erythema. No areas of skin breakdown. The gastrostomy tube exit site appears normal. She voids in the diaper. HEENT: Ocular movements are disconjugate. Pupils are reactive. She has a bulging right side of her cranium in the skull. Oral cavity is moist, quite a few teeth in place. Some periodontitis. No jugular vein distention. LUNGS: Symmetric air entry with markedly diminished breath sounds at the bases. HEART: S1 and S2. Regular rate. ABDOMEN: Soft, not distended. Bowel sounds are present. No bladder distention. She has a dense right hemiplegia. She moves a little bit on the left side, but does not have a purpose. No cognitive function. LABORATORY DATA White cell count on arrival 13.9, hemoglobin 12.4, platelets 370, 80% neutrophils, 14% lymphocytes. Now, the white cell count is 10.9, hemoglobin 10, MCV 85, platelets 305 with 81% neutrophils. Chemistry with initial sodium 135, now 137. Creatinine is stable at 0.47. AST of 37, ALT 60, alkaline phosphatase 129, globulin 4.4. Urinalysis with 4-6 wbc's and microbiology with 2 sets of blood cultures with coagulase negative Staphylococcus from admission. The first one was drawn at 8: 48 and the second one was labeled as having been drawn at 7:29. The organism was identified as methicillin-resistant Staphylococcus epidermidis. She had another previous blood cultures with Staphylococcus epidermidis in May 10. Abdomen and pelvis CT just evaluated. She has a chest x-ray from admission, which showed no acute findings. No infiltrates. 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 Those were obtained about 20 minutes apart. DISCUSSION: The possibility of true invasive Staphylococcus epidermidis bacteremia from a not yet disclosed site needs to be considered although contamination of the samples still possible. Echocardiogram will be ordered depending on results and may have to evaluate the DRILL RIG OPERATOR HELPER shunt as well. Aspiration pneumonitis, intra abdominal inflammatory process and thromboembolism may have to be evaluated depending on clinical progress Job ID: [id number] [facility]
[2018-06-17] MEDS: levETIRAcetam 500 mg/5 ml Oral Solution PER TUBE SCH ×2 (08:58→20:37)
[2018-06-17] MEDS: Famotidine 20 MG TAB PO SCH ×2 (08:58→20:37)
[2018-06-17] MEDS: Metoprolol Tartrate 25 MG TAB PER TUBE SCH ×2 (08:59→20:37)
[2018-06-17] MEDS: Bisacodyl 10 MG SUPP PR SCH (08:59)
[2018-06-17] MEDS: Linezolid 600 MG in Premix Bag 1 BAG IVPB SCH (09:03)
--- NOTE | 2018-06-17 09:03 | PDOC.FM ---
- Subjective Subjective: Pt remains nonverbal, but nursing reports she is much more awake and interactive. - Objective MAR Reviewed: Yes Vital Signs & Weight: Vital Signs (12 hours) Temp Pulse Resp BP Pulse Ox 06/17/18 08:00 98.7 F 78 20 143/92 H 100 06/16/18 23:34 98.3 F 93 18 165/94 H 98 Weight Admit Weight 81.148 kg Weight 81.148 kg I&O: 06/16/18 06/17/18 06/18/18 06:59 06:59 06:59 Intake Total 3900 6240 Output Total 1250 3150 Balance 2650 3090 Result Diagrams: 06/17/18 06:45 06/17/18 06:45 Phys Exam - Physical Examination Constitutional: NAD GCS [id number] HEENT: moist MMs Craniotomy swelling, appears improved from previous exam Neck: no JVD Respiratory: no wheezing, clear to auscultation bilateral Cardiovascular: RRR, no significant murmur Gastrointestinal: soft, non-tender, no distention, positive bowel sounds Musculoskeletal: no edema, pulses present Skin: cap refill <2 seconds Dx/Plan (1) Fever Code(s): R50.9 - FEVER, UNSPECIFIED Status: Acute (2) DM2 (diabetes mellitus, type 2) Status: Chronic Qualifiers: Diabetes mellitus pivot end polisher insulin use: without pivot end polisher use Diabetes mellitus complication status: without complication Qualified Code(s): E11.9 - Type 2 diabetes mellitus without complications (3) GERD (gastroesophageal reflux disease) Code(s): K21.9 - GASTRO-ESOPHAGEAL REFLUX DISEASE WITHOUT ESOPHAGITIS Status: Chronic (4) HTN (hypertension) Code(s): I10 - ESSENTIAL (PRIMARY) HYPERTENSION Status: Chronic - Plan Plan: This is a 48 yo female with a pmh of hemorrhagic stroke, DM2, GERD, HTN, asthma Bleeding from PEG tube, resolved -Minimal evidence of bleeding at time of exam -Hgb 12.4, will recheck in AM -Will consult Dr. Marie if need Fever of unknown source -DDx Neurogenic vs. shunt -Initial labs: Lactic acid 1.8, procal 0.06, WBC 13.9 -WBC is wnl today -On rocephin (06/13) and linezolid (06/14), Neurology consulted -Tylenol for fever -Afebrile overnight -Appears improved since the end of the week -First set of blood cultures positive for MRSE, two of two -Second set of blood cultures before starting linezolid was negative HTN -Continue home meds Hypokalemia -Continue monitoring, replacing today GERD -Continue home meds Hx of aneurysm with repair and shunt placement -Monitor for changes in vs, consider reculturing if fevers again. Addendum - Attending - Attending Attestation Date/Time: 06/17/18 2913 I personally evaluated the patient and discussed the management with Dr. June I agree with the History, Examination, Assessment and Plan documented above with any addition or exceptions noted below. Patient on lizenolid. Note patient alert and responds to staff no reproducible purposeful response to voice commands. Note s/p tracheostomy site healed over ,history CORRESPONDENCE ANALYST shunt, echocardiogram no vegetation to valves, two positive blood cultures with staph epi defer to ID to recommend length of treatment assume fever and positive cultures could be related to CORRESPONDENCE ANALYST shunt as potential source. Overall tolerating fluids per g tube and no bleeding CT abdomen and head no acute findings or changes.
[2018-06-17] MEDS: cefTRIAXone\\ROCEPHIN 2 GM in Sodium Chloride 0.9% 100 ML IVPB SCH (12:04)
[2018-06-17] MEDS: Potassium Chloride 20 MEQ/100 ML PREMIX BAG IVPB SCH ×3 (13:45→18:14)
--- NOTE | 2018-06-17 18:04 | PRG ---
DATE OF SERVICE: 06/17/2018 SUBJECTIVE: Ms. Norwood again does not interact with the examiner. She has not had a fever in a while actually since she was admitted, disconjugate eye movements, large protuberance in the right hemicranium/scalp area. OBJECTIVE: LUNGS: Symmetric air entry. A few wheezes. HEART: S1 and S2. Regular rate. A little bit of coughing spells intermittently. ABDOMEN: Soft. LABORATORY DATA: White cell count 5.8, hemoglobin 10, platelets 343. Sodium 138, creatinine 0.48. Microbiology with Staph epidermidis, 2/2 sets of blood cultures, repeat ones are negative. Echocardiogram did not show any vegetations. 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 Still true invasive Staph epidermidis bacteremia is not ruled out, but more likely represent contamination, sent sample in view of the results of the ancillary tests. We will go ahead and discontinue antimicrobials and follow up the repeat blood cultures. The absence of an intravascular device would argue against systemic infection by Staph epidermidis, more likely to represent contamination of the sample, although I cannot decide this with 100% confidence. Job ID: [id number]
[2018-06-18] MEDS: Sodium Chloride 0.9% 1,000 ML IV SCH ×3 (02:36→20:30)
--- NOTE | 2018-06-18 06:44 | PDOC.FM ---
- Subjective Subjective: Afebrile overnight, no acute changes. Pt remains noncommunicative. - Objective MAR Reviewed: Yes Vital Signs & Weight: Vital Signs (12 hours) Temp Pulse Resp BP Pulse Ox 06/17/18 20:00 98.1 F 107 H 22 H 129/71 95 Weight Admit Weight 81.148 kg Weight 81.148 kg I&O: 06/16/18 06/17/18 06/18/18 06:59 06:59 06:59 Intake Total 3900 6240 1480 Output Total 1250 3150 350 Balance 2650 3090 1130 Result Diagrams: 06/18/18 07:26 06/18/18 07:26 Phys Exam - Physical Examination Constitutional: NAD HEENT: moist MMs Neck: no JVD Respiratory: no wheezing, clear to auscultation bilateral Cardiovascular: RRR Systolic murmur, 2/6 Gastrointestinal: soft, no distention Musculoskeletal: no edema, pulses present Skin: normal turgor, cap refill <2 seconds Dx/Plan (1) Fever Code(s): R50.9 - FEVER, UNSPECIFIED Status: Acute (2) DM2 (diabetes mellitus, type 2) Status: Chronic Qualifiers: Diabetes mellitus terminal system operator insulin use: without senior living use Diabetes mellitus complication status: without complication Qualified Code(s): E11.9 - Type 2 diabetes mellitus without complications (3) GERD (gastroesophageal reflux disease) Code(s): K21.9 - GASTRO-ESOPHAGEAL REFLUX DISEASE WITHOUT ESOPHAGITIS Status: Chronic (4) HTN (hypertension) Code(s): I10 - ESSENTIAL (PRIMARY) HYPERTENSION Status: Chronic - Plan Plan: This is a 48 yo female with a pmh of hemorrhagic stroke, DM2, GERD, HTN, asthma Bleeding from PEG tube, resolved -Minimal evidence of bleeding at time of exam -Hgb 12.4, will recheck in AM -Will consult Dr. Marie if need Fever of unknown source -DDx Neurogenic vs. shunt -Initial labs: Lactic acid 1.8, procal 0.06, WBC 13.9 -WBC is wnl today -On rocephin (06/13-06/17) and linezolid (06/14-06/17), Neurosurgery consulted -Tylenol for fever -Afebrile overnight -Appears improved since the end of the week -First set of blood cultures positive for MRSE, two of two -Second set of blood cultures before starting linezolid was negative -Stopping Abx per Dr. Villegas, agree that 2/2 cultures is suspicious for bacteremia, however likely contaminate -Consider DC if afebrile for 24 hrs HTN -Continue home meds Hypokalemia -Continue monitoring, replacing today GERD -Continue home meds Hx of aneurysm with repair and shunt placement -Monitor for changes in vs, consider reculturing if fevers again. Addendum - Attending - Attending Attestation Date/Time: 06/18/18 8448 I personally evaluated the patient and discussed the management with Dr. June I agree with the History, Examination, Assessment and Plan documented above with any addition or exceptions noted below.Patient appears at baseline appreciate ID recommendation observation off ABX and d/c back to [facility] in AM if she continues stable.
[2018-06-18] MEDS: Famotidine 20 MG TAB PO SCH ×2 (07:49→20:29)
[2018-06-18] MEDS: Metoprolol Tartrate 25 MG TAB PER TUBE SCH ×2 (07:49→20:29)
[2018-06-18] MEDS: Bisacodyl 10 MG SUPP PR SCH (07:49)
[2018-06-18] MEDS: levETIRAcetam 500 mg/5 ml Oral Solution PER TUBE SCH ×2 (07:49→20:29)
[2018-06-18 08:04] LABS: #Eosinphils 0.1 thou/uL (0.0-0.7); #Lymphocytes 1.6 thou/uL (1.20-3.40); #Monocytes 0.3 thou/uL (0.11-0.59); #Neutrophils 3.2 thou/uL (1.40-6.50); %Basophils 0.4 % (0.0-1.0); %Eosinophils 2.2 % (0.0-10.0); %Lymphocytes 30.8 % (21.0-51.0); %Monocytes 5.2 % (0.0-10.0); %Neutrophils 61.4 % (42.0-75.0); Hemoglobin 9.8 g/dL (12.0-16.0); Mean Corpuscular HGB CONC 32.4 g/dL (32.0-36.0); Mean Corpuscular Hemoglobin 28.2 pg (27.0-31.0); Mean Platelet Volume 7.7 fL (7.4-10.4); Platelet Count 335 thou/uL (130-400); RBC Distribution Width 16.7 % (11.5-14.5); Red Blood Cell (RBC) Count 3.49 mill/uL (4.20-5.40); White Blood Cell (WBC) Count 5.3 thou/uL (4.8-10.8)
[2018-06-18 08:20] LABS: Anion Gap 10 mmol/L (10-20); BUN (Urea Nitrogen) 6 mg/dL (7.0-18.7); Calc. Creatinine Clearance 192 mL/min (70-130); Carbon Dioxide 25 mmol/L (22-29); Chloride 107 mmol/L (98-107); Estimated GFR-MDRD Greater than 90; Glucose 133 mg/dL (70-105); Potassium 3.7 mmol/L (3.5-5.1); Sodium 138 mmol/L (136-145)
[2018-06-19] MEDS: Bisacodyl 10 MG SUPP PR SCH (07:43)
[2018-06-19] MEDS: Metoprolol Tartrate 25 MG TAB PER TUBE SCH ×2 (07:43→20:41)
[2018-06-19] MEDS: Famotidine 20 MG TAB PO SCH ×2 (07:43→20:41)
--- NOTE | 2018-06-19 07:53 | PDOC.FM ---
- Subjective Subjective: No acute events overnight. Pt remains noncommunicative. - Objective MAR Reviewed: Yes Vital Signs & Weight: Vital Signs (12 hours) Temp Pulse Resp BP Pulse Ox 06/18/18 20:00 98.1 F 99 20 139/92 H 96 Weight Admit Weight 81.148 kg Weight 81.148 kg I&O: 06/18/18 06/19/18 06/20/18 06:59 06:59 06:59 Intake Total 1480 830 Output Total 350 Balance 1130 830 Result Diagrams: 06/19/18 08:06 06/19/18 08:06 Phys Exam - Physical Examination Constitutional: NAD HEENT: moist MMs Neck: no JVD Respiratory: no wheezing, clear to auscultation bilateral Cardiovascular: RRR, no significant murmur Gastrointestinal: soft, no distention, positive bowel sounds Musculoskeletal: no edema, pulses present Skin: cap refill <2 seconds Dx/Plan (1) Fever Code(s): R50.9 - FEVER, UNSPECIFIED Status: Acute (2) DM2 (diabetes mellitus, type 2) Status: Chronic Qualifiers: Diabetes mellitus terminal make up operator insulin use: without fdc use Diabetes mellitus complication status: without complication Qualified Code(s): E11.9 - Type 2 diabetes mellitus without complications (3) GERD (gastroesophageal reflux disease) Code(s): K21.9 - GASTRO-ESOPHAGEAL REFLUX DISEASE WITHOUT ESOPHAGITIS Status: Chronic (4) HTN (hypertension) Code(s): I10 - ESSENTIAL (PRIMARY) HYPERTENSION Status: Chronic - Plan Plan: This is a 48 yo female with a pmh of hemorrhagic stroke, DM2, GERD, HTN, asthma Bleeding from PEG tube, resolved -Minimal evidence of bleeding at time of exam -Appears stable -Will consult Dr. Marie if needed Fever of unknown source -DDx Neurogenic vs. shunt -Initial labs: Lactic acid 1.8, procal 0.06, WBC 13.9 -WBC is wnl today -On rocephin (06/13-06/17) and linezolid (06/14-06/17), Neurosurgery consulted -Tylenol for fever -Afebrile overnight -Appears improved since the end of the week -First set of blood cultures positive for MRSE, two of two -Second set of blood cultures before starting linezolid was negative -Stopping Abx per Dr. Villegas, agree that 2/2 cultures is suspicious for bacteremia, however likely contaminate -Discharge today, consult CM as pt is from [facility] HTN -Continue home meds Hypokalemia -Continue monitoring, replacing today GERD -Continue home meds Hx of aneurysm with repair and shunt placement -Monitor for changes in vs, consider reculturing if fevers again. Addendum - Attending - Attending Attestation Date/Time: 06/19/18 5604 I personally evaluated the patient and discussed the management with Dr. June I agree with the History, Examination, Assessment and Plan documented above with any addition or exceptions noted below. Patient afebrile off ABX stable d/c to [place] follow expectantly history of GUZZLER BUILDER shunt with revision s/p tracheostomy healed site. Neuro exam unchanged. Patient tolerating tube feeding BP slightly elevated this AM rec expectant care left temporal region at shunt site remains swollen.
[2018-06-19] MEDS: levETIRAcetam 500 mg/5 ml Oral Solution PER TUBE SCH ×2 (07:55→20:41)
[2018-06-19 08:43] LABS: #Eosinphils 0.1 thou/uL (0.0-0.7); #Monocytes 0.3 thou/uL (0.11-0.59); #Neutrophils 3.3 thou/uL (1.40-6.50); %Basophils 0.5 % (0.0-1.0); %Eosinophils 2.3 % (0.0-10.0); %Lymphocytes 34.6 % (21.0-51.0); %Monocytes 5.5 % (0.0-10.0); %Neutrophils 57.2 % (42.0-75.0); Mean Corpuscular HGB CONC 31.3 g/dL (32.0-36.0); Mean Corpuscular Hemoglobin 27.5 pg (27.0-31.0); Mean Corpuscular Volume 87.8 fL (78.0-98.0); Mean Platelet Volume 7.9 fL (7.4-10.4); Platelet Count 367 thou/uL (130-400); RBC Distribution Width 16.8 % (11.5-14.5); Red Blood Cell (RBC) Count 3.63 mill/uL (4.20-5.40); White Blood Cell (WBC) Count 5.8 thou/uL (4.8-10.8)
[2018-06-19 08:56] LABS: Anion Gap 13 mmol/L (10-20); BUN (Urea Nitrogen) 6 mg/dL (7.0-18.7); Calc. Creatinine Clearance 196 mL/min (70-130); Calcium 9.4 mg/dL (7.8-10.44); Carbon Dioxide 25 mmol/L (22-29); Chloride 105 mmol/L (98-107); Estimated GFR-MDRD Greater than 90; Glucose 111 mg/dL (70-105); Potassium 3.5 mmol/L (3.5-5.1); Sodium 139 mmol/L (136-145)
--- NOTE | 2018-06-20 06:20 | PDOC.FM ---
- Subjective Subjective: No acute events overnight. - Objective MAR Reviewed: Yes Vital Signs & Weight: Vital Signs (12 hours) Temp Pulse Resp BP Pulse Ox 06/19/18 20:00 99.0 F 102 H 21 H 148/90 H 95 Weight Admit Weight 81.148 kg Weight 81.148 kg I&O: 06/18/18 06/19/18 06/20/18 06:59 06:59 06:59 Intake Total 5343 780 6478 Output Total 350 Balance 9958 174 0780 Result Diagrams: 06/20/18 05:57 06/20/18 05:57 Phys Exam - Physical Examination Constitutional: NAD HEENT: moist MMs Neck: no JVD Respiratory: no wheezing, clear to auscultation bilateral Cardiovascular: RRR, no significant murmur Gastrointestinal: soft, no distention, positive bowel sounds Musculoskeletal: no edema, pulses present Skin: cap refill <2 seconds Dx/Plan (1) Fever Code(s): R50.9 - FEVER, UNSPECIFIED Status: Acute (2) DM2 (diabetes mellitus, type 2) Status: Chronic Qualifiers: Diabetes mellitus long term acute care registered nurse insulin use: without care home use Diabetes mellitus complication status: without complication Qualified Code(s): E11.9 - Type 2 diabetes mellitus without complications (3) GERD (gastroesophageal reflux disease) Code(s): K21.9 - GASTRO-ESOPHAGEAL REFLUX DISEASE WITHOUT ESOPHAGITIS Status: Chronic (4) HTN (hypertension) Code(s): I10 - ESSENTIAL (PRIMARY) HYPERTENSION Status: Chronic - Plan Plan: This is a 48 yo female with a pmh of hemorrhagic stroke, DM2, GERD, HTN, asthma Bleeding from PEG tube, resolved -Minimal evidence of bleeding at time of exam -Appears stable -Will consult Dr. Marie if needed Fever of unknown source -DDx Neurogenic vs. shunt -Initial labs: Lactic acid 1.8, procal 0.06, WBC 13.9 -WBC is wnl today -On rocephin (06/13-06/17) and linezolid (06/14-06/17), Neurosurgery consulted -Tylenol for fever -Afebrile overnight -Appears improved since the end of the week -First set of blood cultures positive for MRSE, two of two -Second set of blood cultures before starting linezolid was negative -Stopping Abx per Dr. Villegas, agree that 2/2 cultures is suspicious for bacteremia, however likely contaminate -Blood cultures finalized today, negative -Discharge today HTN -Continue home meds Hypokalemia -Continue monitoring, replacing today GERD -Continue home meds Hx of aneurysm with repair and shunt placement -Monitor for changes in vs, consider reculturing if fevers again. Addendum - Attending - Attending Attestation Date/Time: 06/20/18 1311 I personally evaluated the patient and discussed the management with Dr. June I agree with the History, Examination, Assessment and Plan documented above with any addition or exceptions noted below. Patient at her baseline note low grade temp elevation stable to dismiss swelling to right parietal hindu region stable see for future attempt advance bone plate over defect prn. Continue expectant management return to rehab bed and f/u CT and see Neurosurgery as scheduled.
[2018-06-20 07:00] LABS: #Lymphocytes 2.4 thou/uL (1.20-3.40); #Monocytes 0.4 thou/uL (0.11-0.59); #Neutrophils 5.1 thou/uL (1.40-6.50); %Basophils 0.4 % (0.0-1.0); %Eosinophils 0.4 % (0.0-10.0); %Lymphocytes 30.4 % (21.0-51.0); %Monocytes 4.6 % (0.0-10.0); %Neutrophils 64.2 % (42.0-75.0); Hemoglobin 11.1 g/dL (12.0-16.0); Mean Corpuscular HGB CONC 32.4 g/dL (32.0-36.0); Mean Corpuscular Hemoglobin 27.9 pg (27.0-31.0); Mean Corpuscular Volume 86.3 fL (78.0-98.0); Mean Platelet Volume 7.8 fL (7.4-10.4); Platelet Count 431 thou/uL (130-400); RBC Distribution Width 16.8 % (11.5-14.5); Red Blood Cell (RBC) Count 3.97 mill/uL (4.20-5.40)
[2018-06-20 07:20] LABS: Anion Gap 16 mmol/L (10-20); BUN (Urea Nitrogen) 11 mg/dL (7.0-18.7); Calc. Creatinine Clearance 173 mL/min (70-130); Calcium 9.9 mg/dL (7.8-10.44); Carbon Dioxide 23 mmol/L (22-29); Chloride 101 mmol/L (98-107); Estimated GFR-MDRD Greater than 90; Glucose 114 mg/dL (70-105); Potassium 4.2 mmol/L (3.5-5.1); Sodium 136 mmol/L (136-145)
[2018-06-20] MEDS: Famotidine 20 MG TAB PO SCH (09:16)
[2018-06-20] MEDS: levETIRAcetam 500 mg/5 ml Oral Solution PER TUBE SCH (09:16)
[2018-06-20] MEDS: Metoprolol Tartrate 25 MG TAB PER TUBE SCH (09:16)
[2018-06-20] MEDS: Bisacodyl 10 MG SUPP PR SCH (09:17)
[2018-06-20] MEDS: Acetaminophen 650 MG Suppository PR PRN (13:27)
[2018-06-20 15:25] LABS: Bilirubin Negative (Negative); Blood, Urine Negative (Negative); Clarity CLOUDY (Clear); Glucose, Urine (Dipstick) Negative (Negative); Leukocyte Trace (Negative); Nitrite Negative (Negative); Protein, Urine (Dipstick) Negative (Neg-Trace); Urobilinogen 0.2 mg/dL (0.2-1.0)
[2018-06-20 15:29] LABS: Specific Gravity, Urine 1.002 (1.002-1.036)
[2018-06-20 15:40] LABS: Bacteria/HPF None Seen HPF (None Seen); Crystals/HPF 1+ AMORPH PHOS HPF (Negative); Hyaline Casts/LPF NONE SEEN LPF (0-3 Hyaline); RBC/HPF None Seen HPF (0-3); Squamous Epithelial None Seen HPF (0-3); WBC/HPF None Seen HPF (0-3)
[2018-06-20 15:41] LABS: Urine Culture Reflex Yes Yes
[2018-06-20 16:19] VITALS: BP 141/103; TEMP 99.2
[2018-06-21] MEDS ORDERED: Hydrochlorothiazide 25 MG TAB PO SCH (09:00)
--- NOTE | 2018-06-21 13:56 | DIS ---
DATE OF ADMISSION: 06/13/2018 DATE OF DISCHARGE: 06/20/2018 ADMITTING ATTENDING: Isatu Rob MD. DISCHARGING ATTENDING: Dr. Faisal Jarvis. RESIDENT: Isrrael June DO CONSULT: Neurosurgery Dr. Rodríguez Jeong and Infectious Disease, Dr. El Villegas. PROCEDURES: 1. CT abdomen and pelvis showing chronic type stable findings with no complications with PEG tube. 2. Chest x-ray, one view, no acute findings. 3. Brain CT without IV contrast showing extensive stable chronic changes. No acute hemorrhage, unchanged from 05/02/2018. LABORATORY DATA AND VITAL SIGNS: On admission, the patient had temperature of 102.1 and white count of 13.9. UA was negative for signs of infection. First set of blood cultures grew Staphylococcus epidermidis, second set of blood cultures done before no growth in 5 days. PRIMARY DIAGNOSES: Recently placed PEG tube with minimal blood, isolated fever with no source, likely secondary to hypothalamus. SECONDARY DIAGNOSES: Hypertension, gastroesophageal reflux disease, history of aneurysm with repair and shunt placement as well as right hemicraniectomy with significant functional impairment following that incident. DISCONTINUED MEDICATIONS: None. DISCHARGE MEDICATIONS: 1. Tylenol 650 per PEG tube q.6 hours. 2. Dulcolax 10 mg p.r. daily p.r.n. constipation. 3. Hydroxyzine 10 mg per tube t.i.d. p.r.n. agitation. 4. Jevity 1.2 per tube per day. 5. Keppra 500 mg per tube b.i.d. 6. Metoprolol 12.5 mg per tube b.i.d. BRIEF: HISTORY OF PRESENT ILLNESS/HOSPITAL COURSE: This is a 48-year-old female known to our service with a past medical history of hemorrhagic stroke, type 2 diabetes, GERD, hypertension, asthma, who presented to the ER from [facility] with a chief complaint of blood coming from around her PEG tube. The patient had at present change of the PEG tube by Dr. Marie one week ago. In the ER, the patient also found to have a fever of 101.2. Family denies any recent exposure, but reports was treated for UTI two weeks ago. The patient is nearly responsive on admission, which is her baseline. The patient was given Rocephin, Tylenol 1 g and 1 L of normal saline. The patient was admitted to the hospital and monitored for signs of bacteremia and sepsis. As stated above, two of two blood cultures grew back Staphylococcus epidermidis concerning for bacteremia, however procalcitonin was negative and after consulting Dr. Villegas and having second set of negative blood cultures prior to the initiation of linezolid, we felt confident that, however, not 100%, the patient did not have bacteremia sepsis. Echocardiogram was done as well to rule out any vegetations on the valvular structures of the heart. This report showed the following; EF of 50% to 55%, mild mitral regurg and mild tricuspid regurg. No evidence of vegetations. The patient was continued to be monitored and never had a fever after the initial admission. The patient was discharged with a Ortega due to approximately 500 mL of retained urine postvoid. The patient instructed as well as assisted to follow up with Urology for further workup as outpatient. At the time of discharge, urine sample was collected. UA did not show any concerning signs for infection. Urine culture did not grow adequate colonies to support antibiotic use. DISPOSITION: Stable. DISCHARGE INSTRUCTIONS: 1. Location: [facility]. 2. Diet: Jevity 1.2 as stated above per PEG tube. 3. Activity: Strict bed rest with PT as tolerated and regular position change. 4. Follow up with Dr. Naun Solorzano, PCP in 7 days, Dr. El Villegas, and the PA, Cleveland Davila as instructed. Job ID: [id number]
--- NOTE | 2018-06-25 10:55 | PQF ---
LENIN NOLASCO, [place] *r [id number] CLINICAL DOCUMENTATION CLARIFICATION FORM: POST DISCHARGE DATE: 06/25/2018 ATTN: Dr. June/Dr. Jarvis Please exercise your independent, professional judgment in responding to the clarification form. Clinical indicators are provided on the bottom of this form for your review Please check appropriate box(s): Please fill in the blank for the primary diagnosis on discharge summary: Primary Diagnoses: Recently placed PEG tube with minimal blood, isolated fever with no source, likely secondary to (please fill in the blank) Neurogenic fever s/p brain injury. Present on Admission (POA): [x ] Yes [ ] No [ ] Unable to determine For continuity of documentation, please document condition throughout progress notes and discharge summary. Thank You. CLINICAL INDICATORS - SIGNS / SYMPTOMS / LABS: Per discharge summary: Presented to ER with complaint of blood coming from around PEG tube. Was also found to have a fever of 101.2. RISK FACTORS: Per discharge summary: "Isolated fever with no source, likely secondary to neurogenic fever secondary brain injury". TREATMENTS: Per discharge summary: "The patient was given Rocephin, Tylenol 1 g and 1 L of normal saline." (This form is maintained as a part of the permanent medical record) 2014 [employer]. All Rights Reserved Amira [email or web address] [phone] MTDD
== END 2018-06-20 17:53 | DRG 57 ==
LOC: ERS 06:29 → ERHOLD 11:41 → OBSVTOIN 11:41 → T4-A 11:49
PROVIDERS: ADMIT Student in an Organized Health Care Education/Training Program; ATTEND Student in an Organized Health Care Education/Training Program
DX: I69.198 Other sequelae of nontraumatic intracerebral hemorrhage (principal); I69.151 Hemiplegia and hemiparesis following nontraumatic intracerebral hemorrhage affecting right dominant side; R50.81 Fever presenting with conditions classified elsewhere; E11.9 Type 2 diabetes mellitus without complications; K21.9 Gastro-esophageal reflux disease without esophagitis; I10 Essential (primary) hypertension; J45.909 Unspecified asthma, uncomplicated; G40.909 Epilepsy, unspecified, not intractable, without status epilepticus; E87.6 Hypokalemia; K94.21 Gastrostomy hemorrhage; Z86.711 Personal history of pulmonary embolism; Z88.1 Allergy status to other antibiotic agents; Z88.5 Allergy status to narcotic agent; Z79.899 Other long term (current) drug therapy; Z98.2 Presence of cerebrospinal fluid drainage device; Y83.3 Surgical operation with formation of external stoma as the cause of abnormal reaction of the patient, or of later complication, without mention of misadventure at the time of the procedure
CPT/HCPCS: 36415; 36416; 51701; 70450; 71045; 74177; 80048; 80053; 81001; 81003; 81015; 83605; 84145; 85025; 87040; 87077; 87086; 87149; 87186; 93005; 93306; 94760; 96361; 96365; 99212; A4353; G0463; J0360; J0696; J2020; J3480; J3490; Q9966

== ENCOUNTER 2018-07-23 14:07 | Inpatient (IN) | payer MEDICARE, MEDICAID ==
[2018-07-23 15:26] LABS: #Eosinphils 0.1 thou/uL (0.0-0.7); #Lymphocytes 1.6 thou/uL (1.20-3.40); #Monocytes 0.4 thou/uL (0.11-0.59); #Neutrophils 7.1 thou/uL (1.40-6.50); %Basophils 0.5 % (0.0-1.0); %Eosinophils 1.6 % (0.0-10.0); %Lymphocytes 17.2 % (21.0-51.0); %Monocytes 4.5 % (0.0-10.0); %Neutrophils 76.3 % (42.0-75.0); Hemoglobin 12.4 g/dL (12.0-16.0); Mean Corpuscular Hemoglobin 27.6 pg (27.0-31.0); Mean Corpuscular Volume 86.4 fL (78.0-98.0); Mean Platelet Volume 7.5 fL (7.4-10.4); Platelet Count 466 thou/uL (130-400); RBC Distribution Width 14.4 % (11.5-14.5); Red Blood Cell (RBC) Count 4.48 mill/uL (4.20-5.40); White Blood Cell (WBC) Count 9.4 thou/uL (4.8-10.8)
[2018-07-23] MEDS ORDERED: Cefepime 2 GM VIAL ONE (15:38)
[2018-07-23 15:49] LABS: ALT (SGPT) 24 U/L (8-55); AST (SGOT) 15 U/L (5-34); Albumin 4.1 g/dL (3.5-5.0); Alkaline Phosphatase 141 U/L (40-150); Anion Gap 14 mmol/L (10-20); BUN (Urea Nitrogen) 11 mg/dL (7.0-18.7); Bilirubin, Total 0.3 mg/dL (0.2-1.2); Calc. Creatinine Clearance 0 mL/min (70-130); Calcium 10.1 mg/dL (7.8-10.44); Carbon Dioxide 24 mmol/L (22-29); Chloride 101 mmol/L (98-107); Estimated GFR-MDRD Greater than 90; Globulin 4.3 g/dL (2.4-3.5); Glucose 121 mg/dL (70-105); Potassium 4.2 mmol/L (3.5-5.1); Protein, Total 8.4 g/dL (6.0-8.3); Sodium 135 mmol/L (136-145)
[2018-07-23 15:53] LABS: Bilirubin Negative (Negative); Blood, Urine Negative (Negative); Clarity TURBID (Clear); Glucose, Urine (Dipstick) Negative (Negative); Leukocyte Moderate (Negative); Nitrite Positive (Negative); Protein, Urine (Dipstick) Negative (Neg-Trace); Specific Gravity, Urine 1.013 (1.002-1.036); Urobilinogen 0.2 mg/dL (0.2-1.0); pH, Urine 7.5 (5.0-9.0)
[2018-07-23 15:55] LABS: Bacteria/HPF None Seen HPF (None Seen); Hyaline Casts/LPF 0-3 HYALINE CAST LPF (0-3 Hyaline); Pathc Cast-AUWi Flag 0.54 (0-2.49); RBC/HPF 0-3 HPF (0-3); Squamous Epithelial 0-3 HPF (0-3)
[2018-07-23 16:11] LABS: Crystals/HPF 2+ AMORPH PHOS HPF (Negative)
--- NOTE | 2018-07-23 16:12 | RAD ---
PORTABLE CHEST: 07/23/2018 PROVIDED CLINICAL HISTORY: Cough. COMPARISON: 06/13/2018 FINDINGS: The cardiac and mediastinal silhouette is unchanged in appearance. The lungs are hypoinflated withou t definite evidence for focal air space disease. No pleural fluid or pneumothorax apparent. Presume d BEHAVIORAL SCIENCES INSTRUCTOR shunt tubing overlies the right neck and right chest, as well as the upper left quadrant. IMPRESSION: No evidence for an acute cardiopulmonary process. POS: C
[2018-07-23] MEDS ORDERED: Gentamicin Sulfate 300 MG in Sodium Chloride 0.9% 100 ML IVPB SCH (16:45)
--- NOTE | 2018-07-23 17:56 | PDOC.FPRHP ---
- History of Present Illness Chief Complaint: fever History of Present Illness: 48 yo F with hx of craniectomy in 2018 with subsequent trach & PEG tube placement came to ER per recommendation by infectious disease doctor to replace PEG tube. Per report there was no acute concern for infection but it was rx to replace it to prevent infection since it was last changed 6 mos ago. In the ER she apparently felt warm so they checked her temperature rectally which was 100.5 and she was tachycardic. Work up was done due to concern for sepsis. She was found ot have a UTI. ER provider wanting to admit for sepsis. Started on cefepime and gentamicin. 1L bolus & given tylenol. - Allergies/Adverse Reactions Allergies Allergy/AdvReac Type Severity Reaction Status Date / Time piperacillin [From Zosyn] Allergy Severe Rash Verified 05/09/18 15:36 tazobactam [From Zosyn] Allergy Severe Rash Verified 05/09/18 15:36 vancomycin Allergy Severe Short of Verified 05/09/18 15:36 Breath codeine Allergy Verified 05/09/18 15:36 - Home Medications Medication Instructions Recorded Confirmed Type levETIRAcetam [Keppra Oral 500 mg PER TUBE BID 12/25/17 07/23/18 History Solution] Acetaminophen [Tylenol Elixir] 650 mg PER TUBE Q6H PRN udcup 05/24/18 07/23/18 Rx Bisacodyl [Dulcolax] 10 mg AK DAILY PRN 06/13/18 07/23/18 History Metoprolol Tartrate [Lopressor] 12.5 mg PER TUBE BID 06/13/18 07/23/18 History hydrOXYzine [Atarax Syrup] 10 mg PER TUBE TID PRN 06/13/18 07/23/18 History Lactose-Reduced Food/Fiber [Jevity 1,500 ml PER TUBE DAILY 07/23/18 07/23/18 History 1.2 Reilly Liquid] Omeprazole 1 cap PER TUBE DAILY 07/23/18 07/23/18 History - History PMHx:hx of hemorrhagic stroke, DM2, GERD, HTN, asthma, epilepsy PSHx: right frontal/temporal hemicraniectomy, 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, cholecystectomy, trach placed & then removed by patient, PEG tube FHx:n/c Social:denies YOLANDE - Review of Systems ROS unobtainable: due to mental status - Vital signs BP: 123/91, Pulse: 117, Resp: 21, Pain: UTR, O2 sat: 95 on Room Air, Time: 2018 15:20 - Physical Exam Constitutional: NAD -Constitutional: A&O x0, lethargic but motor responsive GCS9 - E1V2M6) HEENT: conjunctiva clear, TM's clear and intact, MMM, oropharynx clear Neck: supple, FROM Heart: RRR, normal S1/S2, no murmurs/rubs/gallops Lungs: CTAB, no respiratory distress, no wheezing, no retractions Abdomen: soft, non-tender, bowel sounds present -Abdomen: Peg tube in place, dried blood but no leakage or purulence, -Musculoskeletal: dec tone likely from being bedbound -Neurological: unable to assess Heme/Lymphatic: no unusual bruising or bleeding, no purpura, no petechia FMR H&P: Results - Labs Result Diagrams: 07/23/18 14:59 07/23/18 14:59 Lab results: WBC 9.4 thou/uL (4.8-10.8) 07/23/18 14:59 Hgb 12.4 g/dL (12.0-16.0) 07/23/18 14:59 Hct 38.7 % (36.0-47.0) 07/23/18 14:59 MCV 86.4 fL (78.0-98.0) 07/23/18 14:59 Plt Count 466 thou/uL (130-400) H 07/23/18 14:59 Neutrophils % 76.3 % (42.0-75.0) H 07/23/18 14:59 Sodium 135 mmol/L (136-145) L 07/23/18 14:59 Potassium 4.2 mmol/L (3.5-5.1) 07/23/18 14:59 Chloride 101 mmol/L (98-107) 07/23/18 14:59 Carbon Dioxide 24 mmol/L (22-29) 07/23/18 14:59 BUN 11 mg/dL (7.0-18.7) 07/23/18 14:59 Creatinine 0.58 mg/dL (0.6-1.1) L 07/23/18 14:59 Glucose 121 mg/dL (70-105) H 07/23/18 14:59 Lactic Acid 1.7 mmol/L (0.5-2.2) 07/23/18 15:00 Calcium 10.1 mg/dL (7.8-10.44) 07/23/18 14:59 Total Bilirubin 0.3 mg/dL (0.2-1.2) 07/23/18 14:59 AST 15 U/L (5-34) 07/23/18 14:59 ALT 24 U/L (8-55) 07/23/18 14:59 Alkaline Phosphatase 141 U/L (40-150) 07/23/18 14:59 Serum Total Protein 8.4 g/dL (6.0-8.3) H 07/23/18 14:59 Albumin 4.1 g/dL (3.5-5.0) 07/23/18 14:59 Urine Ketones Negative mg/dL (Negative) 07/23/18 15:32 Urine Blood Negative (Negative) 07/23/18 15:32 Urine Nitrite Positive (Negative) H 07/23/18 15:32 Ur Leukocyte Esterase Moderate (Negative) H 07/23/18 15:32 Urine RBC 0-3 HPF (0-3) 07/23/18 15:32 Urine WBC 11-20 HPF (0-3) H 07/23/18 15:32 Ur Squamous Epith Cells 0-3 HPF (0-3) 07/23/18 15:32 Urine Bacteria None Seen HPF (None Seen) 07/23/18 15:32 - Radiology Interpretation Chest x-ray Status: image reviewed by me, report reviewed by me Additional comment: no acute cardiopulm processes FMR H&P: A/P - Problem List (1) Sepsis Current Visit: Yes Status: Acute Code(s): A41.9 - SEPSIS, UNSPECIFIED ORGANISM (2) Presence of externally removable percutaneous endoscopic gastrostomy (PEG) tube Current Visit: Yes Status: Acute Code(s): Z93.1 - GASTROSTOMY STATUS (3) UTI (urinary tract infection) Current Visit: No Status: Acute Qualifiers: Urinary tract infection type: site unspecified Hematuria presence: without hematuria Qualified Code(s): N39.0 - Urinary tract infection, site not specified Comment: growing Pseudomonas on 2 separate cultures. Also some yeast. Febrile again. ID following. On Linezolid, cefepime and micafungin. Ortega exchanged. (4) Encephalopathy Current Visit: No Status: Chronic Code(s): G93.40 - ENCEPHALOPATHY, UNSPECIFIED Comment: chronic with worsoning? (5) GERD (gastroesophageal reflux disease) Current Visit: No Status: Chronic Code(s): K21.9 - GASTRO-ESOPHAGEAL REFLUX DISEASE WITHOUT ESOPHAGITIS (6) HTN (hypertension) Current Visit: No Status: Chronic Code(s): I10 - ESSENTIAL (PRIMARY) HYPERTENSION (7) Seizure disorder Current Visit: No Status: Chronic Code(s): G40.909 - EPILEPSY, UNSP, NOT INTRACTABLE, WITHOUT STATUS EPILEPTICUS (8) Status post craniectomy Current Visit: No Status: Chronic Code(s): Z98.890 - OTHER SPECIFIED POSTPROCEDURAL STATES - Plan 48 yo [facility] F, bedbound with hx of craniectomy with sepsis 2/2 UTI Sepsis 2/2 UTI -tachycardic, febrile, s/p 1L bolus in ER, no WBC -UA with LE, nitrites, WBCs -s/p gentamicin & cefepime in ER due to multiple allergies, will continue double coverage due to history of recurrent UTI with different sensitivities. -Pending urine & blood culture -Obtain procal -will bolus one more liter LR -admit to medical/obs PEG tube -replaced on 07/23, continue with care -family would like to consider speech re-swallow, will place consult for AM -continue PEG tube feeds, cement boat and barge loader consulted HTN -continue home meds GERD -continue home meds Hx of cerebral aneurysm with repair & shunt placement -MD aware, followed by neurosurgeon outpatient Seizure disorder -continue home Keppra dvt ppx: lovenox gi ppx: pantoprazole dispo: <[address] Rob FMFelix H&P: Upper Level - Plan Date/Time: 07/23/18 [id number] Bernardo Salas, have evaluated this patient and agree with findings/plan as outlined by music industry internship resident. Pertinent changes/additions are listed here. HPI Pt is a 46 y/o F with hx/o hemicraniotomy 2/2 ruptured aneurism. Presents to ED for PEG tube replacement and reportedly felt warm and then was worked up after fever of 100.5 was found. Aunts in room state she was pointing to groin today when asked if she had pain and where. They also state she has marla doing well the past several days and even better than baseline. S/p 1u IVF. Pt unable to speak or provide history. PROBLEM LISTANDPLAN: # Sepsis 2/2 UTI - Pt with a hx of allergy to vanc and zosyn. Was started on broad spectrum abx In ED. Will continue IVF as she has been tachycardic up to 110, but does have a history of tachycardia. Continue Cefepime and Gentamycin and likely de-escalate tomorrow or when cultures return. # Hx/o Ruptured Aneurism and Craniotomy- At baseline mental status as this is a known patient to me. Actually improved this morning per her Aunts, but sleepy on exam. # DM Continue home Insulin regimen
[2018-07-23 18:33] VITALS: BMI 29.8
[2018-07-23] MEDS ORDERED: Ondansetron ODT 4 MG TAB SL PRN (18:35)
[2018-07-23] MEDS ORDERED: Sodium Chloride 0.9% 1,000 ML IV SCH (18:35)
[2018-07-23] MEDS ORDERED: Acetaminophen 325 MG TAB PO PRN (18:35)
[2018-07-23] MEDS ORDERED: Ondansetron PF 4 MG/2 ML Vial IVP PRN (18:35)
[2018-07-23] MEDS ORDERED: Acetaminophen 325 MG TAB PER TUBE PRN (18:45)
[2018-07-23] MEDS ORDERED: Lactated Ringer's 1,000 ML IV SCH (18:45)
[2018-07-23] MEDS ORDERED: Acetaminophen 650 MG Suppository PR PRN (19:04)
[2018-07-23] MEDS ORDERED: Bisacodyl 10 MG SUPP PR PRN (21:20)
[2018-07-23] MEDS ORDERED: Acetaminophen 650 MG/20.3 ML UDCUP PER TUBE PRN (21:20)
[2018-07-23] MEDS ORDERED: hydrOXYzine 10 MG/5 ML UDCUP PER TUBE PRN (21:20)
[2018-07-23] MEDS ORDERED: Insulin Regular 300 UNITS/3 ML VIAL SC PRN ×2 (23:02)
[2018-07-23] MEDS ORDERED: Dextrose 50% Abboject 50 ML SYRINGE SLOW IVP PRN (23:02)
[2018-07-23] MEDS ORDERED: Dextrose 5% in Water 1,000 ML IV PRN (23:02)
[2018-07-24] MEDS ORDERED: Metoprolol Tartrate 25 MG TAB PER TUBE SCH (00:15)
[2018-07-24 01:50] LABS: Hemoglobin A1c 5.3 % (4.0-6.0)
[2018-07-24] MEDS: Cefepime 2 GM in Sodium Chloride 0.9% 100 ML IVPB SCH ×2 (02:55→15:13)
[2018-07-24 04:22] LABS: #Eosinphils 0.3 thou/uL (0.0-0.7); #Lymphocytes 1.1 thou/uL (1.20-3.40); #Monocytes 0.3 thou/uL (0.11-0.59); #Neutrophils 6.3 thou/uL (1.40-6.50); %Basophils 0.3 % (0.0-1.0); %Eosinophils 3.7 % (0.0-10.0); %Lymphocytes 14.1 % (21.0-51.0); %Monocytes 3.1 % (0.0-10.0); %Neutrophils 78.9 % (42.0-75.0); Hemoglobin 12.2 g/dL (12.0-16.0); Mean Corpuscular HGB CONC 31.7 g/dL (32.0-36.0); Mean Corpuscular Hemoglobin 27.6 pg (27.0-31.0); Mean Corpuscular Volume 87.2 fL (78.0-98.0); Mean Platelet Volume 7.3 fL (7.4-10.4); Platelet Count 428 thou/uL (130-400); RBC Distribution Width 14.6 % (11.5-14.5); Red Blood Cell (RBC) Count 4.43 mill/uL (4.20-5.40)
[2018-07-24 04:46] LABS: Anion Gap 12 mmol/L (10-20); BUN (Urea Nitrogen) 10 mg/dL (7.0-18.7); Calc. Creatinine Clearance 152 mL/min (70-130); Carbon Dioxide 21 mmol/L (22-29); Chloride 111 mmol/L (98-107); Estimated GFR-MDRD Greater than 90; Glucose 106 mg/dL (70-105); Sodium 140 mmol/L (136-145)
--- NOTE | 2018-07-24 07:02 | PDOC.FM ---
- Subjective Subjective: NAEO. Patient resting comfortably in bed. At baseline per nursing. Unable to answer questions for further ROS. Patient follows some commands. - Objective MAR Reviewed: Yes Vital Signs & Weight: Vital Signs (12 hours) Temp Pulse Resp BP Pulse Ox 07/24/18 04:05 98.3 F 94 20 118/83 94 L 07/24/18 02:13 104 H 07/24/18 02:09 98.3 F 07/24/18 01:01 103 H 07/23/18 23:04 99 F 136 H 22 H 111/81 94 L 07/23/18 22:37 99.2 F Weight Weight 73.992 kg I&O: 07/22/18 07/23/18 07/24/18 06:59 06:59 06:59 Intake Total 1890 Balance 1890 Result Diagrams: 07/24/18 04:13 07/24/18 04:13 Phys Exam - Physical Examination Constitutional: NAD axox0, non communicative HEENT: moist MMs, sclera anicteric swelling to right side of head, compressible, non erythematous or warm Neck: supple limited ROM Respiratory: no wheezing, no rales, no rhonchi, clear to auscultation bilateral Cardiovascular: RRR, no significant murmur Gastrointestinal: soft, non-tender unable to fully assess, follows some commands such as opening mouth Psychiatric: normal affect Skin: no rash, normal turgor, cap refill <2 seconds Deviation from normal: skin breakdown on left lateral foot and coccyx Dx/Plan (1) Sepsis Code(s): A41.9 - SEPSIS, UNSPECIFIED ORGANISM Status: Acute (2) Fever Code(s): R50.9 - FEVER, UNSPECIFIED Status: Acute (3) Hydrocephalus Code(s): G91.9 - HYDROCEPHALUS, UNSPECIFIED Status: Acute (4) UTI (urinary tract infection) Status: Acute Qualifiers: Urinary tract infection type: site unspecified Hematuria presence: without hematuria Qualified Code(s): N39.0 - Urinary tract infection, site not specified (5) Chronic anemia Code(s): D64.9 - ANEMIA, UNSPECIFIED Status: Chronic (6) DM2 (diabetes mellitus, type 2) Status: Chronic Qualifiers: Diabetes mellitus assisted insulin use: without assisted use Diabetes mellitus complication status: without complication Qualified Code(s): E11.9 - Type 2 diabetes mellitus without complications (7) GERD (gastroesophageal reflux disease) Code(s): K21.9 - GASTRO-ESOPHAGEAL REFLUX DISEASE WITHOUT ESOPHAGITIS Status: Chronic (8) HTN (hypertension) Code(s): I10 - ESSENTIAL (PRIMARY) HYPERTENSION Status: Chronic - Plan Plan: 48 yo [place] F, bedbound with hx of craniectomy with sepsis 2/2 UTI. Sepsis 2/2 UTI On admission: tachycardic, febrile, s/p 1L bolus in ER, no WBC. - UA with LE, nitrites, WBCs. Urine cx pending. - s/p gentamicin & cefepime in ER due to multiple allergies, will continue double coverage due to history of recurrent UTI with different sensitivities. Patient w/ redness on LE - benadryl given. Will continue to monitor for possible reaction. - Blood cx pending - Procal 0.04 PEG tube - Replaced on 07/23, continue with care - Speech consulted as family would like to re-assess - Continue PEG tube feeds, sustainability engineer consulted HTN - Continue home meds GERD - Continue home meds Hx of cerebral aneurysm with repair & shunt placement - MD aware, followed by neurosurgeon outpatient. No concern for infection at this time. Seizure disorder - Continue home Keppra Skin changes - Skin breakdown on left lateral foot and coccyx - Wound care consulted dvt ppx: lovenox gi ppx: pantoprazole dispo: >2 midnights, palliative care consulted Addendum - Attending - Attending Attestation Date/Time: 07/24/18 1120 I personally evaluated the patient and discussed the management with Dr. Castellon I agree with the History, Examination, Assessment and Plan documented above with any addition or exceptions noted below. Unfortunate 48 yo admitted with urosepsis after evaluation in ER for change out of PEG tube. 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 Aunt feels patient responsive and localizing pain to bladder when questioned I cannot appreciate her responding to my commands during rounds this am. Continue palliative care broad spectrum ABX pending culture results may need to involve I.D. Shunt evaluation if not done recently as well.
[2018-07-24] MEDS: Metoprolol Tartrate 25 MG TAB PER TUBE SCH (08:00)
[2018-07-24] MEDS: levETIRAcetam 500 mg/5 ml Oral Solution PER TUBE SCH (08:00)
[2018-07-24] MEDS: Enoxaparin Sodium 40 MG/0.4 ML SYRINGE SC SCH (08:01)
[2018-07-24] MEDS: Pantoprazole 40 MG GRANULES PACKET PER TUBE SCH (08:01)
[2018-07-24] MEDS ORDERED: [UNRECOGNIZED DRUG - OTHER] PER TUBE SCH (09:00)
[2018-07-24] MEDS ORDERED: LACTOSE REDUCED FOOD PER TUBE SCH (09:00)
[2018-07-24] MEDS ORDERED: FIBER PER TUBE SCH (09:00)
[2018-07-24] MEDS ORDERED: diphenhydrAMINE 50 MG/ML VIAL IVP PRN (09:30)
[2018-07-24] MEDS ORDERED: Ibuprofen 800 MG TAB PO PRN (10:56)
[2018-07-24] MEDS: Gentamicin Sulfate 300 MG in Sodium Chloride 0.9% 100 ML IVPB SCH (18:06)
[2018-07-25] MEDS ORDERED: Cefepime 2 GM VIAL ONE (03:52)
[2018-07-25 09:58] LABS: Chloride 108 mmol/L (98-107); Potassium 3.9 mmol/L (3.5-5.1); Sodium 139 mmol/L (136-145)
[2018-07-25 09:59] LABS: Calcium 9.5 mg/dL (7.8-10.44); Glucose 79 mg/dL (70-105)
[2018-07-25 10:00] LABS: Anion Gap 16 mmol/L (10-20); Carbon Dioxide 19 mmol/L (22-29)
[2018-07-25 10:02] LABS: Calc. Creatinine Clearance 158 mL/min (70-130); Estimated GFR-MDRD Greater than 90
[2018-07-25 10:03] LABS: BUN (Urea Nitrogen) 15 mg/dL (7.0-18.7)
[2018-07-25 10:43] LABS: Hemoglobin 11.6 g/dL (12.0-16.0); Mean Corpuscular HGB CONC 31.2 g/dL (32.0-36.0); Mean Corpuscular Hemoglobin 27.6 pg (27.0-31.0); Mean Corpuscular Volume 88.5 fL (78.0-98.0); Mean Platelet Volume 8.2 fL (7.4-10.4); Platelet Count 409 thou/uL (130-400); RBC Distribution Width 14.7 % (11.5-14.5); White Blood Cell (WBC) Count 7.9 thou/uL (4.8-10.8)
[2018-07-25 10:57] LABS: Band 4 % (5-11); Eosinophils 5 % (0-10); Lymphocytes 16 % (21-51); MDiff Complete? YES; Monocytes 5 % (0-10); Neutrophil 69 % (42-75); Platelet Morphology Comment Appears Increased; Polychromasia SLIGHT = 2-3 cells (100X) (0-2/hpf); Reactive Lymphocytes 1 % (0-10)
[2018-07-25] MEDS: levETIRAcetam 500 mg/5 ml Oral Solution PER TUBE SCH ×3 (11:13→21:10)
[2018-07-25] MEDS: Enoxaparin Sodium 40 MG/0.4 ML SYRINGE SC SCH (11:14)
[2018-07-25] MEDS: Metoprolol Tartrate 25 MG TAB PER TUBE SCH ×3 (11:14→21:10)
[2018-07-25] MEDS: Pantoprazole 40 MG GRANULES PACKET PER TUBE SCH (11:14)
[2018-07-25] MEDS: Cefepime 2 GM in Sodium Chloride 0.9% 100 ML IVPB SCH ×2 (12:17→15:03)
[2018-07-25] MEDS: Gentamicin Sulfate 300 MG in Sodium Chloride 0.9% 100 ML IVPB SCH (18:03)
[2018-07-26] MEDS: Cefepime 2 GM in Sodium Chloride 0.9% 100 ML IVPB SCH ×2 (02:53→14:51)
[2018-07-26 05:23] LABS: #Eosinphils 0.2 thou/uL (0.0-0.7); #Monocytes 0.3 thou/uL (0.11-0.59); #Neutrophils 7.1 thou/uL (1.40-6.50); %Eosinophils 1.9 % (0.0-10.0); %Lymphocytes 11.9 % (21.0-51.0); %Monocytes 3.9 % (0.0-10.0); %Neutrophils 82.3 % (42.0-75.0); Hemoglobin 11.6 g/dL (12.0-16.0); Mean Corpuscular HGB CONC 31.9 g/dL (32.0-36.0); Mean Corpuscular Volume 87.8 fL (78.0-98.0); Mean Platelet Volume 7.5 fL (7.4-10.4); Platelet Count 365 thou/uL (130-400); RBC Distribution Width 14.5 % (11.5-14.5); Red Blood Cell (RBC) Count 4.15 mill/uL (4.20-5.40); White Blood Cell (WBC) Count 8.7 thou/uL (4.8-10.8)
[2018-07-26 05:47] LABS: Anion Gap 13 mmol/L (10-20); BUN (Urea Nitrogen) 12 mg/dL (7.0-18.7); Calc. Creatinine Clearance 161 mL/min (70-130); Calcium 9.2 mg/dL (7.8-10.44); Carbon Dioxide 23 mmol/L (22-29); Chloride 107 mmol/L (98-107); Estimated GFR-MDRD Greater than 90; Glucose 119 mg/dL (70-105); Potassium 3.5 mmol/L (3.5-5.1); Sodium 139 mmol/L (136-145)
--- NOTE | 2018-07-26 07:10 | PDOC.FM ---
- Subjective Subjective: NAEO. Patient resting in bed, at baseline per nursing and family. Non communicative. Will follow some commands. Aunt at the bedside who states she feels patient can go back to the NH. She has been unsatisfied with the care at the NH and is thinking about going somewhere else or taking patient home. - Objective MAR Reviewed: Yes Vital Signs & Weight: Vital Signs (12 hours) Temp Pulse Resp BP Pulse Ox 07/25/18 19:57 98.5 F 120 H 20 139/83 100 Weight Admit Weight 73.992 kg Weight 73.992 kg I&O: 07/25/18 07/26/18 07/27/18 06:59 06:59 06:59 Intake Total 692 2121 Balance 692 2121 Result Diagrams: 07/26/18 05:03 07/26/18 05:03 Phys Exam - Physical Examination Constitutional: NAD HEENT: moist MMs, sclera anicteric Neck: supple Respiratory: clear to auscultation bilateral Cardiovascular: RRR Gastrointestinal: soft, non-tender, no distention, positive bowel sounds at baseline, LUE strength 0/5; right sided temporal swelling Psychiatric: normal affect Skin: no rash, normal turgor, cap refill <2 seconds Dx/Plan (1) Sepsis Code(s): A41.9 - SEPSIS, UNSPECIFIED ORGANISM Status: Acute (2) Fever Code(s): R50.9 - FEVER, UNSPECIFIED Status: Acute (3) Hydrocephalus Code(s): G91.9 - HYDROCEPHALUS, UNSPECIFIED Status: Acute (4) UTI (urinary tract infection) Status: Acute Qualifiers: Urinary tract infection type: site unspecified Hematuria presence: without hematuria Qualified Code(s): N39.0 - Urinary tract infection, site not specified (5) Chronic anemia Code(s): D64.9 - ANEMIA, UNSPECIFIED Status: Chronic (6) DM2 (diabetes mellitus, type 2) Status: Chronic Qualifiers: Diabetes mellitus fci insulin use: without painter decorator use Diabetes mellitus complication status: without complication Qualified Code(s): E11.9 - Type 2 diabetes mellitus without complications (7) GERD (gastroesophageal reflux disease) Code(s): K21.9 - GASTRO-ESOPHAGEAL REFLUX DISEASE WITHOUT ESOPHAGITIS Status: Chronic (8) HTN (hypertension) Code(s): I10 - ESSENTIAL (PRIMARY) HYPERTENSION Status: Chronic - Plan Plan: 48 yo [place] F, bedbound with hx of craniectomy with sepsis 2/2 UTI. Sepsis 2/2 UTI On admission: tachycardic, febrile, s/p 1L bolus in ER, no WBC. - UA with LE, nitrites, WBCs. - s/p gentamicin & cefepime for 3 days. Ucx grew gram neg rods < 10,000 - Blood cx NGTD - Procal 0.04 -> 0.06 Tachycardia - hx of tachycardia, possibly neurogenic - on metoprolol, increased home dosage PEG tube - Replaced on 07/23, continue with care - Speech consulted as family would like to re-assess - Continue PEG tube feeds, production worker consulted HTN - Continue home meds GERD - Continue home meds Hx of cerebral aneurysm with repair & shunt placement - MD aware, followed by neurosurgeon outpatient. No concern for infection at this time. Seizure disorder - Continue home Keppra Skin changes - Skin breakdown on left lateral foot and coccyx - Wound care consulted dvt ppx: lovenox gi ppx: pantoprazole dispo: discharge today as Ucx <[id number], no abx on discharge Addendum - Attending - Attending Attestation Date/Time: 07/27/18 6932 I personally evaluated the patient and discussed the management with Dr. Casteloln I agree with the History, Examination, Assessment and Plan documented above with any addition or exceptions noted below. Stable to dismiss back to NH family contemplating home care.
[2018-07-26] MEDS: levETIRAcetam 500 mg/5 ml Oral Solution PER TUBE SCH (09:29)
[2018-07-26] MEDS: Metoprolol Tartrate 25 MG TAB PER TUBE SCH (09:29)
[2018-07-26] MEDS: Pantoprazole 40 MG GRANULES PACKET PER TUBE SCH (09:29)
[2018-07-26] MEDS: Enoxaparin Sodium 40 MG/0.4 ML SYRINGE SC SCH (09:29)
[2018-07-26 14:37] VITALS: BP 129/73; TEMP 98.4
== END 2018-07-26 15:49 | DRG 871 ==
LOC: ERS 14:07 → T4-B 18:31 → OBSVTOIN 07-24 07:02
PROVIDERS: ADMIT Student in an Organized Health Care Education/Training Program; ATTEND Student in an Organized Health Care Education/Training Program
DX: A41.9 Sepsis, unspecified organism (principal); R40.2222 Coma scale, best verbal response, incomprehensible words, at arrival to emergency department; R40.2112 Coma scale, eyes open, never, at arrival to emergency department; N39.0 Urinary tract infection, site not specified; G91.9 Hydrocephalus, unspecified; G93.49 Other encephalopathy; R40.2362 Coma scale, best motor response, obeys commands, at arrival to emergency department; E11.9 Type 2 diabetes mellitus without complications; K21.9 Gastro-esophageal reflux disease without esophagitis; J45.909 Unspecified asthma, uncomplicated; B96.5 Pseudomonas (aeruginosa) (mallei) (pseudomallei) as the cause of diseases classified elsewhere; G40.909 Epilepsy, unspecified, not intractable, without status epilepticus; D64.9 Anemia, unspecified; Z79.899 Other long term (current) drug therapy; Z93.1 Gastrostomy status; Z88.1 Allergy status to other antibiotic agents; Z88.5 Allergy status to narcotic agent; Z86.73 Personal history of transient ischemic attack (TIA), and cerebral infarction without residual deficits; Z90.49 Acquired absence of other specified parts of digestive tract; Z87.440 Personal history of urinary (tract) infections; Z98.890 Other specified postprocedural states
CPT/HCPCS: 36415; 36416; 71045; 80048; 80053; 80170; 81003; 81015; 83036; 83605; 84145; 85025; 87040; 87086; A4353; J0692; J1200; J1580; J1650; J3490

== ENCOUNTER 2018-08-05 06:13 | Inpatient (IN) | payer MEDICARE, MEDICAID ==
--- NOTE | 2018-08-04 23:41 | HP ---
HISTORY OF PRESENT ILLNESS: Ms. Norwood is a 48-year-old woman known to us for previous history of aneurysmal rupture, intracerebral hemorrhage with right hemicraniectomy and aneurysmal coiling. She has had repeated hospitalizations for urosepsis and pneumosepsis. She is also known to us for shunt placement for hydrocephalus. She reports now having been roughly stable for the last several months and is ready for cranioplasty. PAST MEDICAL HISTORY: Significant for hemorrhagic stroke, type 2 diabetes, gastroesophageal reflux disease, hypertension, asthma, and epilepsy. PAST SURGICAL HISTORY: Right frontotemporal hemicraniectomy, cholecystectomy, and PEG tube. PHYSICAL EXAMINATION: GENERAL: The patient is alert and oriented x0. She is lethargic and minimally motor responsive. HEENT: Pupils are reactive to light, though sluggish. She has soft tissue protuberance over the right frontotemporal scalp where her bone flap has been resected. ALLERGIES: NO KNOWN DRUG ALLERGIES. ASSESSMENT: Hemicraniectomy defect, history of severe cerebrovascular accident. PLAN: Dr. Jeong reviewed the imaging, patient's history, and advocated and is ready for right frontotemporal cranioplasty. He explained to the family the risks, benefits, and alternatives to the procedure. The family expressed understanding and would like to proceed. I do believe they are medically competent and capable of making medical decisions for Ms. Norwood and we will move forward with surgery as planned. Job ID: [id number]
[2018-08-05] MEDS ORDERED: Fentanyl 100 MCG/2 ML VIAL ONE (06:30)
[2018-08-05] MEDS ORDERED: Sodium Chloride 0.9% 10 ML ONE (07:20)
[2018-08-05] MEDS ORDERED: Thrombin 5000 UNITS/5 ML VIAL ONE (09:07)
[2018-08-05] MEDS ORDERED: Ondansetron HCl/PF 4 MG/2 ML Vial IVP PRN (09:47)
[2018-08-05] MEDS ORDERED: Promethazine HCl 25 MG/ML VIAL SLOW IVP PRN (09:47)
[2018-08-05] MEDS ORDERED: Promethazine HCl 25 MG/ML VIAL IM PRN (09:47)
[2018-08-05] MEDS ORDERED: Bacitracin Zinc Ointment 30 gm TUBE ONE (09:59)
[2018-08-05] MEDS ORDERED: Labetalol HCl 100 MG/20 ML VIAL SLOW IVP PRN (10:14)
[2018-08-05] MEDS ORDERED: Ondansetron PF 4 MG/2 ML Vial IVP PRN (10:14)
[2018-08-05] MEDS ORDERED: diphenhydrAMINE 50 MG/ML VIAL IVP PRN (10:14)
[2018-08-05] MEDS ORDERED: Morphine 2 MG/ML SYRINGE SLOW IVP PRN (10:14)
[2018-08-05] MEDS ORDERED: hydrOXYzine 10 MG/5 ML UDCUP PER TUBE PRN (10:16)
[2018-08-05] MEDS ORDERED: Bisacodyl 10 MG SUPP PR PRN (10:16)
[2018-08-05] MEDS ORDERED: Metoprolol Tartrate 5 MG/5 ML VIAL ONE ×2 (10:47→10:48)
--- NOTE | 2018-08-05 11:56 | OP ---
DATE OF PROCEDURE: 08/05/2018 LINE THERAPIST: Cleveland Davila PA-C. INDICATION: History of prior CVA with hemicraniectomy. DIAGNOSIS: Prior hemicraniectomy. PROCEDURE PERFORMED: Replacement of bone flap. ANESTHESIA: General. DESCRIPTION OF PROCEDURE: The patient was brought into the operating room and placed under general anesthesia. She was placed on the table in the supine position. Her right scalp area was shaved. The previous incision site was identified and prepped and draped. Following an appropriate pause, the incision was created. The skin was reflected anteriorly and superiorly. A piece of Silastic sheeting, which was placed at the time of last surgical procedure was identified and carefully removed. The bone margins were identified. The bone flap was then replaced using three-point fixation. The wound was irrigated. Hemostasis was maintained throughout. A subgaleal drain was placed and brought out through a separate puncture site. The wound was then closed in anatomic layers and a pressure dressing was applied. There were no known procedural complications. Job ID: [id number]
--- NOTE | 2018-08-05 13:50 | PDOC.FPRHP ---
- Allergies/Adverse Reactions Allergies Allergy/AdvReac Type Severity Reaction Status Date / Time piperacillin [From Zosyn] Allergy Severe Rash Verified 08/02/18 12:28 tazobactam [From Zosyn] Allergy Severe Rash Verified 08/02/18 12:28 vancomycin Allergy Severe Short of Verified 08/02/18 12:28 Breath codeine Allergy Verified 08/02/18 12:28 - Home Medications Medication Instructions Recorded Confirmed Type levETIRAcetam [Keppra Oral 500 mg PER TUBE BID 12/25/17 08/02/18 History Solution] Acetaminophen [Tylenol Elixir] 650 mg PER TUBE Q6H PRN udcup 05/24/18 08/02/18 Rx Bisacodyl [Dulcolax] 10 mg DC DAILY PRN 06/13/18 08/02/18 History hydrOXYzine [Atarax Syrup] 10 mg PER TUBE TID PRN 06/13/18 08/02/18 History Lactose-Reduced Food/Fiber [Jevity 1,500 ml PER TUBE DAILY 07/23/18 08/02/18 History 1.2 Reilly Liquid] Metoprolol Tartrate [Lopressor] 25 mg PER TUBE BID #30 tab 07/26/18 08/02/18 Rx Humulin R units SC ASDIR 08/02/18 History Pantoprazole [Protonix] 40 mg PER TUBE DAILY 08/02/18 08/02/18 History - History PMHx: PSHx: FHx: Social: - Vital signs BP: [] HR: [] RR: [] Tmax: [] Pox: []% on [] Wt: [] FMR H&P: Upper Level - Plan Date/Time: 08/05/18 1342 I, [], have evaluated this patient and agree with findings/plan as outlined by data analysis intern resident. Pertinent changes/additions are listed here.
--- NOTE | 2018-08-05 14:59 | CON ---
DATE OF CONSULTATION: 08/05/18 ATTENDING PHYSICIAN: Dr. 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 Of note, the history was obtained from the patient's family as the patient is nonverbal at baseline. Per the family, the patient's neurosurgeon, Dr. Jeong, recommended that the patient undergo a revision cranioplasty procedure, which was the sole purpose of her hospitalization today. They report that the patient's neurologic status has been at baseline over the last several weeks at the correction and their only new concerns are a rash that has reportedly developed under her bilateral breasts. PAST MEDICAL HISTORY: History of hemorrhagic CVA secondary to a ruptured aneurysm status post right frontotemporal hemicraniectomy and aneurysm repair, history of hydrocephalus status post BALLROOM DANCER shunt placement, GERD, hypertension, epilepsy, type 2 diabetes, and asthma. PAST SURGICAL HISTORY: Right frontotemporal hemicraniectomy, endovascular repair of right MCA bifurcated aneurysm, cholecystectomy, trach placement status post self removal, PEG tube placement, and right frontotemporal cranioplasty. FAMILY HISTORY: Non-contributory. SOCIAL HISTORY: No reported drug, alcohol, or tobacco use per the patient's family. REVIEW OF SYSTEMS: Unobtainable secondary to the patient's mental status. PHYSICAL EXAMINATION: VITAL SIGNS: Blood pressure 144/91, pulse 101, respirations 17, O2 saturations 99% on 2 L nasal cannula, and temperature 97.3 Fahrenheit. GENERAL: The patient is A and O x0 and nonverbal. GCS score of 9 which is the patient's baseline with minimal motor responsiveness noted. HEENT: Pupils are equally round and reactive to light, but sluggish. Clean, dry, and intact dressing covering the right frontotemporal scalp with a RAIZA drain in place draining minimal serosanguineous fluid. NECK: Healing tracheostomy site noted on the anterior neck with no signs of infection or drainage noted. HEART: Tachycardic with a regular rhythm. No murmurs, rubs, or gallops noted. LUNGS: Clear to auscultation on inspiration bilaterally with no respiratory distress, wheezing or retractions noted. Diffusely coarse breath sounds on expiration noted to be secondary to slightly patent trach tube site. ABDOMEN: Soft, nontender, and nondistended with PEG tube in place. MUSCULOSKELETAL: Right upper extremity contracture noted. NEUROLOGIC: Unable to adequately assess due to the patient's mental status. Bedbound. Able to follow some commands such as movement of the right toes when asked to do so. HEME/LYMPHATIC: Two healing bruises noted on right upper extremity. SKIN: Slight erythema/trace maceration noted beneath the right breast and scaling noted beneath the left breast with no overt signs of infection noted. PSYCHIATRIC: Unable to assess secondary to mental status. LABORATORY DATA: Point of care glucose at approximately 0707 hours of 113. ASSESSMENT AND PLAN: 48-year-old female with the past medical history significant for a hemorrhagic cerebrovascular accident from a ruptured aneurysm status post repair and right frontotemporal hemicraniectomy, who is postop day # 0 status post right frontotemporal cranioplasty, for which we were consulted for medical management. Postop day #0 status post right frontotemporal cranioplasty: Aware, being followed by Neurosurgery, Dr. Jeong. We will continue prophylactic clindamycin and continue to monitor drain output and neurologic status closely for any acute changes. Hypertension: We will resume home medications. Gastroesophageal reflux disease: Will resume home medications. Percutaneous endoscopic gastrostomy tube: Physician Allergist Immunologist consulted for any postoperative supplementation recommendations. We will also consult Speech for another evaluation per the request of the family. We will resume tube feeds per dietitian recommendations. History of cerebral aneurysm with repair: Aware, the patient follows closely with Neurosurgery, Dr. Jeong. h/o hydrocephalus s/p BALLROOM DANCER shunt placement: Aware, the patient follows closely with Neurosurgery, Dr. Jeong. Seizure disorder: Will resume home Keppra dosing. Physical deconditioning: We will consult Physical Therapy and Occupational Therapy to have them evaluate and treat the patient for the duration of her hospital stay. Intertrigo: Will order topical nystatin to be applied daily to the bottom section. DVT PPx: SCDs GI PPx: Pantoprazole. Disposition: Anticipated length of stay > 2 midnights, pending postoperative and clinical course. Case discussed with attending physician, Dr. Ritesh Noriega. Job ID: [id number] JUAN
[2018-08-05] MEDS: Sodium Chloride 0.9% 1,000 ML IV SCH (15:07)
[2018-08-05] MEDS: Clindamycin/D5W 900 MG in Premix Bag 1 BAG IVPB SCH ×3 (15:11→21:56)
[2018-08-05] MEDS ORDERED: Ondansetron PF 4 MG/2 ML Vial ONE (16:27)
[2018-08-05] MEDS ORDERED: Esmolol 100 MG/10 ML VIAL ONE (16:27)
[2018-08-05] MEDS ORDERED: Rocuronium Bromide 10 MG/ML (10ML VIAL) ONE (16:27)
[2018-08-05] MEDS ORDERED: Lidocaine 1% PF 5 ML VIAL ONE (16:27)
[2018-08-05] MEDS ORDERED: Glycopyrrolate 0.2 MG/ML 5 ML SYRINGE ONE (16:27)
[2018-08-05] MEDS ORDERED: PROPOFOL 200 MG/20 ML VIAL ONE (16:27)
[2018-08-05] MEDS ORDERED: HumaLOG 300 UNITS/3 ML VIAL SC PRN ×2 (17:05)
[2018-08-05] MEDS ORDERED: Dextrose 50% Abboject 50 ML SYRINGE SLOW IVP PRN (17:05)
[2018-08-05] MEDS ORDERED: Dextrose 5% in Water 1,000 ML IV PRN (17:05)
[2018-08-05] MEDS: levETIRAcetam 500 mg/5 ml Oral Solution PER TUBE SCH (21:56)
[2018-08-05] MEDS: Metoprolol Tartrate 25 MG TAB PER TUBE SCH (21:57)
[2018-08-05] MEDS: Nystatin Powder 15 GM BOT TOP SCH (21:58)
[2018-08-06] MEDS: Clindamycin/D5W 900 MG in Premix Bag 1 BAG IVPB SCH (04:07)
[2018-08-06] MEDS: Sodium Chloride 0.9% 1,000 ML IV SCH (04:13)
[2018-08-06 05:20] LABS: #Eosinphils 0.1 thou/uL (0.0-0.7); #Lymphocytes 1.7 thou/uL (1.20-3.40); #Monocytes 0.5 thou/uL (0.11-0.59); #Neutrophils 6.6 thou/uL (1.40-6.50); %Basophils 0.2 % (0.0-1.0); %Eosinophils 1.1 % (0.0-10.0); %Lymphocytes 18.9 % (21.0-51.0); %Monocytes 5.8 % (0.0-10.0); %Neutrophils 73.9 % (42.0-75.0); Hemoglobin 9.6 g/dL (12.0-16.0); Mean Corpuscular HGB CONC 31.6 g/dL (32.0-36.0); Mean Corpuscular Hemoglobin 27.5 pg (27.0-31.0); Mean Corpuscular Volume 87.3 fL (78.0-98.0); Platelet Count 528 thou/uL (130-400); RBC Distribution Width 14.1 % (11.5-14.5); Red Blood Cell (RBC) Count 3.49 mill/uL (4.20-5.40); White Blood Cell (WBC) Count 8.9 thou/uL (4.8-10.8)
[2018-08-06 05:21] LABS: Hemoglobin A1c 5.6 % (4.0-6.0)
[2018-08-06 05:37] LABS: Anion Gap 15 mmol/L (10-20); BUN (Urea Nitrogen) 8 mg/dL (7.0-18.7); Calc. Creatinine Clearance 179 mL/min (70-130); Calcium 8.8 mg/dL (7.8-10.44); Carbon Dioxide 20 mmol/L (22-29); Chloride 104 mmol/L (98-107); Estimated GFR-MDRD Greater than 90; Glucose 93 mg/dL (70-105); Potassium 3.8 mmol/L (3.5-5.1); Sodium 135 mmol/L (136-145)
--- NOTE | 2018-08-06 07:39 | HP ---
I have examined the patient. I have discussed the case with Dr. Nichelle Merida and agree with her assessment and plan. Ms. Norwood is a very unfortunate 48-year-old female, who had a hemorrhagic CVA from ruptured aneurysm previously, status post repair and a right frontotemporal hemicraniectomy. We were asked to see her because she was admitted for a right frontotemporal cranioplasty and we have been asked to manage her other medical issues. PHYSICAL EXAMINATION: VITAL SIGNS: On exam, her blood pressure is 140/90, her pulse rate is 100, respirations 17, and O2 saturation on 2 L is 99%. GENERAL: The patient is A and O x0, nonverbal with a GSS score of 9. This appears to be her baseline. EAR, NOSE, AND THROAT: No erythema or exudate. NECK: Reveals a healing tracheostomy site. Otherwise, supple. CARDIAC: Heart rhythm is regular. No gallop or murmur noted. LUNGS: Clear without rales or wheezes. ABDOMEN: Flat, soft, and nondistended. LABORATORY DATA: CBC; WBC 8900, hemoglobin 9.6, and hematocrit 30.5. Chemistries; sodium 135, potassium 3.8, chloride 104, bicarb 20, BUN 8, and creatinine 0.46. ASSESSMENT AND PLAN: A 48-year-old female, status post hemorrhagic cerebrovascular accident from ruptured aneurysm, status post repaired. Currently with a status post right frontotemporal cranioplasty. We will continue to manage her hypertension and gastroesophageal reflux disease and follow along with the Neurosurgery Service. Job ID: [id number]
--- NOTE | 2018-08-06 08:37 | PDOC.FM ---
- Subjective Subjective: NAEO. Patient not following commands on exam this AM but more aware of physician 's present in the room. VS have remained stable with exception of slightly worsening tachycardia. - Objective MAR Reviewed: Yes Vital Signs & Weight: Vital Signs (12 hours) Temp 08/06/18 07:12 99.0 F 08/06/18 03:50 99.0 F 08/05/18 23:59 98.5 F Weight Weight 79.061 kg Most Recent Monitor Data Heart Rate from ECG 113 NIBP 128/79 NIBP BP-Mean 95 Respiration from ECG 21 SpO2 95 I&O: 08/05/18 08/06/18 08/07/18 06:59 06:59 06:59 Intake Total 1290 Output Total 690 Balance 600 Result Diagrams: 08/06/18 04:58 08/06/18 04:58 Phys Exam - Physical Examination Constitutional: NAD HEENT: moist MMs Respiratory: no wheezing Cardiovascular: no significant murmur tachycardic with regular rhythm Gastrointestinal: soft, no distention, positive bowel sounds PEG tube securely in place with no surrounding erythema or drainage noted Musculoskeletal: no edema, pulses present Skin: normal turgor, cap refill <2 seconds Deviation from normal: intertrigo noted beneath B/L breasts Dx/Plan (1) Presence of externally removable percutaneous endoscopic gastrostomy (PEG) tube Code(s): Z93.1 - GASTROSTOMY STATUS Status: Chronic (2) Rash Code(s): R21 - RASH AND OTHER NONSPECIFIC SKIN ERUPTION Status: Acute (3) Asthma Code(s): J45.909 - UNSPECIFIED ASTHMA, UNCOMPLICATED Status: Chronic (4) Chronic anemia Code(s): D64.9 - ANEMIA, UNSPECIFIED Status: Chronic (5) GERD (gastroesophageal reflux disease) Code(s): K21.9 - GASTRO-ESOPHAGEAL REFLUX DISEASE WITHOUT ESOPHAGITIS Status: Chronic (6) HTN (hypertension) Code(s): I10 - ESSENTIAL (PRIMARY) HYPERTENSION Status: Chronic (7) Hx of aneurysm Code(s): Z86.79 - PERSONAL HISTORY OF OTHER DISEASES OF THE CIRCULATORY SYSTEM Status: Chronic (8) Seizure disorder Code(s): G40.909 - EPILEPSY, UNSP, NOT INTRACTABLE, WITHOUT STATUS EPILEPTICUS Status: Chronic (9) Status post craniectomy Code(s): Z98.890 - OTHER SPECIFIED POSTPROCEDURAL STATES Status: Chronic - Plan Plan: 48YOF admitted for a R frontotemporal cranioplasty s/p R hemicraniectomy 2/2 a hemorrhagic CVA due to an aneurysm rupture for which we were consulted for medical management. Post-op day #1 s/p R frontotemporal hemicraniectomy: - Aware, patient being followed by neurosurgery. - Will continue post-op infection PPx with IV clinda and IS with assistance to prevents PNA per their recs. - PT & OT on board. - Will continue to monitor neurologic status closely. Chronic tachycardia: - Patient has a documented hx of tachycardia at baseline that was previously well-controlled on current metoprolol dose. HR has been slightly higher in the 110s/120s overnight. Could be slightly exacerbated 2/2 stress of surgery but will monitor closely for signs of infection as Tmax also increased to 99F overnight. - Will consider increasing mIVFs as patient's UO was inadequate over the last 24 hours so may be also be a slight degree of volume depletion contributing to increased HR. - Will continue strict I&Os. HTN: - Will continue home meds. GERD: - Will continue home meds. DMII: - A1c this admission 5.6. Patient therefore no longer considered diabetic. Will d/c accuchecks and SSI. Normocytic anemia: - Hgb down to 9.6 this morning which is slightly below baseline but slight decline expected as patient is post-op day #1. - Will continue to monitor. Seizure disorder: - Will continue home meds. PEG tube: - Aware, peg tube feeds resumes yesterday. Dieticians on board for further recs and management. Appreciate recs. h/o cerebral aneurysm s/p repair: - Aware, patient followed closely by neurosurgery. h/o hydrocephalus s/p FREIGHT DISPATCHER shunt placement. - Aware, patient followed closely by neurosurgery. physical deconditioning: - PT and OT consulted yesterday for treatment while in hospital. Will likely need to continue as outpatient 2/2 bedbound status. intertrigo: - Will continue topical nystatin powder. Diet: tube feeds Abx: Clindamycin (08/05) IVFs: NS @ 75mL/hr DVT PPx: SCDs GI PPx: pantoprazole Dispo: LOS > 2 midnight pending post-operative recovery and course. Addendum - Attending - Attending Attestation Date/Time: 08/06/18 3391 I personally evaluated the patient and discussed the management with Dr. Merida. I agree with the History, Examination, Assessment and Plan documented above with any addition or exceptions noted below. Speech therapy was working with the patient at the time of the visit. She is still not safe to swallow. Pt's is tachycardic, more so than baseline, will increase fluid intake.
[2018-08-06] MEDS ORDERED: LACTOSE REDUCED FOOD PER TUBE SCH (09:00)
[2018-08-06] MEDS ORDERED: FIBER PER TUBE SCH (09:00)
[2018-08-06] MEDS ORDERED: [UNRECOGNIZED DRUG - OTHER] PER TUBE SCH (09:00)
[2018-08-06] MEDS ORDERED: Lactated Ringer's 1,000 ML IV SCH (09:30)
[2018-08-06] MEDS: Pantoprazole 40 MG GRANULES PACKET PER TUBE SCH (09:39)
[2018-08-06] MEDS: Metoprolol Tartrate 25 MG TAB PER TUBE SCH ×2 (09:39→20:44)
[2018-08-06] MEDS: levETIRAcetam 500 mg/5 ml Oral Solution PER TUBE SCH ×2 (09:39→20:44)
[2018-08-06] MEDS: Nystatin Powder 15 GM BOT TOP SCH ×2 (09:40→20:44)
[2018-08-06 09:56] VITALS: BMI 31.8
--- NOTE | 2018-08-06 13:29 | PRG ---
DATE OF SERVICE: 08/06/2018 Ms. Norwood is postoperative day 1 following a right frontotemporal cranioplasty. She is doing well from a neurological standpoint and appears to essentially be at her baseline. There has been minimal drainage from the incision, and the RAIZA drain has stopped draining, so we will go ahead and remove that this morning. Plan will be to move from the ICU to the floor and hopefully get her back to the [facility] either later today or tomorrow at the latest. We will follow up with disease case manager later today. Job ID: [id number]
--- NOTE | 2018-08-07 07:28 | PDOC.FM ---
- Subjective Subjective: Patient transferred to surgical floor overnight. Remains at baseline neurologically & medically stable. - Objective MAR Reviewed: Yes Vital Signs & Weight: Vital Signs (12 hours) Temp Pulse Resp BP Pulse Ox 08/07/18 03:34 98.1 F 109 H 18 151/90 H 98 08/07/18 00:00 98.8 F 96 20 127/80 97 08/06/18 20:05 96 Weight Admit Weight 80.739 kg Weight 79.061 kg Most Recent Monitor Data Heart Rate from ECG 109 NIBP 109/81 NIBP BP-Mean 90 Respiration from ECG 31 SpO2 95 I&O: 08/06/18 08/07/18 08/08/18 06:59 06:59 06:59 Intake Total 1290 1987 Output Total 690 1650 Balance 600 337 Result Diagrams: 08/06/18 04:58 08/06/18 04:58 Phys Exam - Physical Examination Constitutional: NAD Respiratory: no wheezing, no rales, no rhonchi Cardiovascular: no significant murmur tachycardic with regular rhythm Gastrointestinal: soft, non-tender, no distention, positive bowel sounds PEG tube in place Musculoskeletal: no edema, pulses present unable to assess 2/2 mental status; GCS score of 9 at baseline Skin: normal turgor, cap refill <2 seconds Deviation from normal: intertrigo beneath B/L breasts and stage II decub overlying sacrum Dx/Plan (1) Presence of externally removable percutaneous endoscopic gastrostomy (PEG) tube Code(s): Z93.1 - GASTROSTOMY STATUS Status: Chronic (2) Rash Code(s): R21 - RASH AND OTHER NONSPECIFIC SKIN ERUPTION Status: Acute (3) Asthma Code(s): J45.909 - UNSPECIFIED ASTHMA, UNCOMPLICATED Status: Chronic (4) Chronic anemia Code(s): D64.9 - ANEMIA, UNSPECIFIED Status: Chronic (5) GERD (gastroesophageal reflux disease) Code(s): K21.9 - GASTRO-ESOPHAGEAL REFLUX DISEASE WITHOUT ESOPHAGITIS Status: Chronic (6) HTN (hypertension) Code(s): I10 - ESSENTIAL (PRIMARY) HYPERTENSION Status: Chronic (7) Hx of aneurysm Code(s): Z86.79 - PERSONAL HISTORY OF OTHER DISEASES OF THE CIRCULATORY SYSTEM Status: Chronic (8) Seizure disorder Code(s): G40.909 - EPILEPSY, UNSP, NOT INTRACTABLE, WITHOUT STATUS EPILEPTICUS Status: Chronic (9) Status post craniectomy Code(s): Z98.890 - OTHER SPECIFIED POSTPROCEDURAL STATES Status: Chronic - Plan Plan: 48YOF admitted for a R frontotemporal cranioplasty s/p R hemicraniectomy 2/2 a hemorrhagic CVA due to an aneurysm rupture for which we were consulted for medical management. Post-op day #2 s/p R frontotemporal hemicraniectomy: - Aware, patient being followed by neurosurgery. Chronic tachycardia: - Patient has a documented hx of tachycardia at baseline that was previously well-controlled on current metoprolol dose. HR has improved overnight between the 100s to 110s. - Will continue strict I&Os & tube feeds only now that UO is adequate. HTN: - Stable. Will continue home meds. GERD: - Stable. Will continue home meds. DMII: - A1c this admission 5.6. Patient therefore no longer considered diabetic. Will d/c accuchecks and SSI. Normocytic anemia: - Hgb down to 9.6 yesterday which is slightly below baseline but slight decline expected with patient being post-op Seizure disorder: - Will continue home meds. PEG tube: - Aware, will continue PEG tube feeds per Fabrication Technician 7 speech recs. Appreciate recs. h/o cerebral aneurysm s/p repair: - Aware, patient followed closely by neurosurgery. h/o hydrocephalus s/p TECHNICAL SALES ADVISOR shunt placement. - Aware, patient followed closely by neurosurgery. intertrigo: - Will continue topical nystatin powder. Diet: tube feeds Abx: none IVFs: none DVT PPx: SCDs GI PPx: pantoprazole Dispo: Cleared for discharge from medical standpoint pending placement. Medical team will sign off as patient has been medically stable for >24 hours now. Thank you for allowing us to participate in the care of this patient. Please do not hesitate to contact again with any additional medical concerns. Addendum - Attending - Attending Attestation Date/Time: 08/07/18 7010 I personally evaluated the patient and discussed the management with Dr. Merida. I agree with the History, Examination, Assessment and Plan documented above with any addition or exceptions noted below. The patient's A1c is back to normal range. Labs are stable. She is tolerating tube feeds, urine output is stable.
--- NOTE | 2018-08-07 07:57 | PRG ---
DATE OF SERVICE: 08/06/2018 Ms. Norwood is one day status post replacement of her bone flap following hemicraniectomy, status post malignant edema from a large intracerebral hemorrhage secondary to aneurysm several months ago. Her surgery was uneventful. Her postoperative course in the first 24 hours has also been uneventful. Her RAIZA drain has been removed. The plan now will be movement toward disposition. Once a [facility]dc facility has been identified, she can be discharged there at any point in time. Our plan will be to follow up with her in approximately 2-week time frame for the purposes of staple removal. Job ID: [id number]
[2018-08-07] MEDS: Pantoprazole 40 MG GRANULES PACKET PER TUBE SCH (08:48)
[2018-08-07] MEDS: Nystatin Powder 15 GM BOT TOP SCH ×2 (08:48→20:31)
[2018-08-07] MEDS: levETIRAcetam 500 mg/5 ml Oral Solution PER TUBE SCH ×2 (08:48→20:31)
[2018-08-07] MEDS: Metoprolol Tartrate 25 MG TAB PER TUBE SCH ×2 (08:48→20:31)
--- NOTE | 2018-08-07 09:08 | PRG ---
DATE OF SERVICE: 08/07/2018 Ms. Norwood is postoperative day #2 following cranioplasty of the right frontal convexity, well from a Neurologic standpoint. She appears to be at her baseline. Had 2 tips to the floor yesterday afternoon, and I am seeing her this morning at bedside there. Her incision looks to be very well approximated. There is no additional drainage and minimal tension there. She does have some edema in the skin flap, which is nonfluctuant. I do not believe this necessarily represents any persistent fluid collection as it did previously. Plan yesterday and continues to be today to disposition [facility] back [facility]. It appears that it is preliminarily approved to get her to [place], so will follow that today, and hopefully, we will have her out this afternoon. Job ID: [id number]
[2018-08-08] MEDS: Pantoprazole 40 MG GRANULES PACKET PER TUBE SCH (08:59)
[2018-08-08] MEDS: Nystatin Powder 15 GM BOT TOP SCH ×2 (08:59→20:06)
[2018-08-08] MEDS: Metoprolol Tartrate 25 MG TAB PER TUBE SCH ×2 (08:59→20:05)
[2018-08-08] MEDS: levETIRAcetam 500 mg/5 ml Oral Solution PER TUBE SCH ×2 (08:59→20:05)
[2018-08-09] MEDS: levETIRAcetam 500 mg/5 ml Oral Solution PER TUBE SCH ×2 (09:23→21:48)
[2018-08-09] MEDS: Metoprolol Tartrate 25 MG TAB PER TUBE SCH ×2 (09:23→21:48)
[2018-08-09] MEDS: Pantoprazole 40 MG GRANULES PACKET PER TUBE SCH (09:23)
[2018-08-09] MEDS: Nystatin Powder 15 GM BOT TOP SCH ×2 (09:33→21:49)
[2018-08-10] MEDS: levETIRAcetam 500 mg/5 ml Oral Solution PER TUBE SCH ×2 (09:28→20:59)
[2018-08-10] MEDS: Metoprolol Tartrate 25 MG TAB PER TUBE SCH ×2 (09:28→21:00)
[2018-08-10] MEDS: Pantoprazole 40 MG GRANULES PACKET PER TUBE SCH (09:28)
[2018-08-10] MEDS: Nystatin Powder 15 GM BOT TOP SCH ×2 (09:29→20:59)
--- NOTE | 2018-08-10 10:31 | PRG ---
DATE OF SERVICE: 08/10/2018 Ms. Norwood is postop day 5 following cranioplasty and again is stable. She has been cleared for discharge as of three days ago, but unfortunately, has had continued placement issues most recently at [facility] declining to take her after initially accepting her. She is no longer needing hospital requirements for admission and we will need to be discharged preferably to her home facility and then they can arrange transfer from their. Job ID: [id number]
[2018-08-10] MEDS: Acetaminophen 650 MG/20.3 ML UDCUP PER TUBE PRN (17:45)
--- NOTE | 2018-08-10 22:13 | PRG ---
DATE OF SERVICE: I reviewed the note as dictated by Cleveland Davila. Ms. Norwood continues to recover from placement of her bone flap. She is back at her neurologic baseline. We are awaiting disposition planning. Job ID: [id number]
[2018-08-11] MEDS: Acetaminophen 650 MG/20.3 ML UDCUP PER TUBE PRN (10:03)
[2018-08-11] MEDS: Metoprolol Tartrate 25 MG TAB PER TUBE SCH ×2 (10:03→20:47)
[2018-08-11] MEDS: Pantoprazole 40 MG GRANULES PACKET PER TUBE SCH (10:03)
[2018-08-11] MEDS: Nystatin Powder 15 GM BOT TOP SCH ×2 (10:04→20:47)
[2018-08-11] MEDS: levETIRAcetam 500 mg/5 ml Oral Solution PER TUBE SCH ×2 (10:07→20:47)
--- NOTE | 2018-08-11 10:51 | PRG ---
DATE OF SERVICE: 08/11/2018 Ms. Norwood is sitting up in her bed. She is awake. Her incision remained clean, dry, and intact. She has some upper respiratory congestion based on her breathing activity. Neurologically, she is at her baseline. We continue to await for final disposition. Job ID: [id number]
--- NOTE | 2018-08-11 11:55 | PRG ---
DATE OF SERVICE: 08/11/2018 SUBJECTIVE: Ms. Norwood is postop day 6 following cranioplasty . She continues to be stable from neurologic standpoint and she does not seem to be requirements. However, she has a placement issue trying to find an appropriate [facility] to get her back at present. She is unfortunately still in the hospital. We will work hard tomorrow with Case Management and see if later discharged to a facility. Job ID: [id number]
[2018-08-12] MEDS: Pantoprazole 40 MG GRANULES PACKET PER TUBE SCH (09:14)
[2018-08-12] MEDS: Metoprolol Tartrate 25 MG TAB PER TUBE SCH ×2 (09:14→20:37)
[2018-08-12] MEDS: levETIRAcetam 500 mg/5 ml Oral Solution PER TUBE SCH ×2 (09:14→20:36)
[2018-08-12] MEDS: Nystatin Powder 15 GM BOT TOP SCH ×2 (09:15→20:37)
--- NOTE | 2018-08-13 09:16 | PRG ---
DATE OF SERVICE: 08/13/2018 SUBJECTIVE: Ms. Norwood is now 1 week status post right frontotemporal cranioplasty. The edema that was in the skin flap overlying her bone looks excellent now, that has reduced significantly. She is opening her eyes some for me this morning and adjusted her head a little, but is not following commands at present. The continued focus for her at this moment is to attempt to get her discharged to some facility. We unfortunately had no luck to date. We will follow up with Case Management today to see if we can get her somewhere potentially today or tomorrow. Job ID: [id number]
[2018-08-13] MEDS: Pantoprazole 40 MG GRANULES PACKET PER TUBE SCH (09:45)
[2018-08-13] MEDS: Nystatin Powder 15 GM BOT TOP SCH (09:45)
[2018-08-13] MEDS: levETIRAcetam 500 mg/5 ml Oral Solution PER TUBE SCH (09:45)
[2018-08-13] MEDS: Metoprolol Tartrate 25 MG TAB PER TUBE SCH (09:45)
[2018-08-13 11:25] VITALS: BP 112/74; TEMP 98.4
== END 2018-08-13 15:15 | DRG 24 ==
LOC: SURG A 06:13 → IMCU/EMU 11:28 → SJJU 08-06 18:59
PROVIDERS: ADMIT Neurological Surgery; ATTEND Neurological Surgery
PROC: 0NR10JZ Replacement of Frontal Bone with Synthetic Substitute, Open Approach (ICD-10-PCS; principal; 2018-08-05)
PROC: 0NR50JZ Replacement of Right Temporal Bone with Synthetic Substitute, Open Approach (ICD-10-PCS; 2018-08-05)
DX: I60.11 Nontraumatic subarachnoid hemorrhage from right middle cerebral artery (principal); I10 Essential (primary) hypertension; K21.9 Gastro-esophageal reflux disease without esophagitis; E11.9 Type 2 diabetes mellitus without complications; J45.909 Unspecified asthma, uncomplicated; G40.909 Epilepsy, unspecified, not intractable, without status epilepticus; L30.4 Erythema intertrigo; R53.81 Other malaise; D64.9 Anemia, unspecified; R00.0 Tachycardia, unspecified; R21 Rash and other nonspecific skin eruption; Z86.73 Personal history of transient ischemic attack (TIA), and cerebral infarction without residual deficits; Z90.49 Acquired absence of other specified parts of digestive tract; Z93.1 Gastrostomy status
CPT/HCPCS: 36415; 36416; 80048; 83036; 85025; C1713; J0690; J2001; J2270; J2405; J2704; J3010; J3490

== ENCOUNTER 2018-08-23 20:59 | Inpatient (IN) | payer MEDICARE, MEDICAID ==
--- NOTE | 2018-08-23 21:44 | RAD ---
Portable frontal chest radiograph: 08/23/2018 COMPARISON: 07/23/2018 HISTORY: Fever FINDINGS: Shunt tubing overlies the right hemithorax and upper abdomen. Heart and mediastinal contour s are stable. No pneumothorax or pleural fluid. No focal consolidation or alveolar edema. IMPRESSION: No acute findings.
[2018-08-23 21:46] LABS: #Eosinphils 0.1 thou/uL (0.0-0.7); #Lymphocytes 2.2 thou/uL (1.20-3.40); #Monocytes 0.4 thou/uL (0.11-0.59); #Neutrophils 5.1 thou/uL (1.40-6.50); %Basophils 0.4 % (0.0-1.0); %Eosinophils 1.1 % (0.0-10.0); %Lymphocytes 27.8 % (21.0-51.0); %Monocytes 5.1 % (0.0-10.0); %Neutrophils 65.6 % (42.0-75.0); Hemoglobin 9.4 g/dL (12.0-16.0); Mean Corpuscular HGB CONC 30.5 g/dL (32.0-36.0); Mean Corpuscular Hemoglobin 26.1 pg (27.0-31.0); Mean Corpuscular Volume 85.6 fL (78.0-98.0); Mean Platelet Volume 6.7 fL (7.4-10.4); Platelet Count 683 thou/uL (130-400); RBC Distribution Width 15.3 % (11.5-14.5); White Blood Cell (WBC) Count 7.8 thou/uL (4.8-10.8)
[2018-08-23 21:47] LABS: Bicarbonate (HCO3v) 29.8 mmol/L (22.0-28.0); CO2 Tension (PvCO2) 44.3 mmHg (40.0-50.0); Calcium, Ionized 1.06 mmol/L (See Comments:); Chloride 100 mmol/L (98-107); Hemoglobin - Calc 11.1 g/dL (12.0-16.0); Potassium 3.8 mmol/L (3.5-5.1); Sodium 136 mmol/L (138-145); T. Carbon Dioxide 31.2 mmol/L (22.0-28.0); vO2 Saturation-calc 85.3 % (60.0-85.0)
[2018-08-23 21:51] LABS: INR-International Normal Ratio 1.1; PTT 31.3 SEC (22.9-36.1); Prothrombin Time 13.8 SEC (12.0-14.7)
[2018-08-23 22:06] LABS: Bilirubin Negative (Negative); Blood, Urine Large (Negative); Glucose, Urine (Dipstick) Negative (Negative); Leukocyte Large (Negative); Nitrite Positive (Negative); Protein, Urine (Dipstick) 100 mg/dL (Neg-Trace)
[2018-08-23 22:10] LABS: ALT (SGPT) 19 U/L (8-55); AST (SGOT) 11 U/L (5-34); Albumin 3.5 g/dL (3.5-5.0); Alkaline Phosphatase 121 U/L (40-150); Anion Gap 14 mmol/L (10-20); BUN (Urea Nitrogen) 11 mg/dL (7.0-18.7); Bilirubin, Total 0.3 mg/dL (0.2-1.2); CK (CPK) 39 U/L (29-168); Calc. Creatinine Clearance 0 mL/min (70-130); Calcium 9.2 mg/dL (7.8-10.44); Carbon Dioxide 29 mmol/L (22-29); Chloride 98 mmol/L (98-107); Estimated GFR-MDRD Greater than 90; Globulin 4.2 g/dL (2.4-3.5); Glucose 94 mg/dL (70-105); Potassium 4.4 mmol/L (3.5-5.1); Protein, Total 7.7 g/dL (6.0-8.3); Sodium 137 mmol/L (136-145)
[2018-08-23 22:11] LABS: Clarity Turbid (Clear)
[2018-08-23 22:12] LABS: WBC/HPF 21-50 HPF (0-3)
[2018-08-23 22:13] LABS: Bacteria/HPF 1+ HPF (None Seen); Calcium Oxalate Crystals 1+ HPF (None Seen); RBC/HPF 21-50 HPF (0-3); Squamous Epithelial 0-3 HPF (0-3); Yeast-Budding None Seen HPF (None Seen)
--- NOTE | 2018-08-23 22:42 | CT ---
Head CT without contrast 08/23/2018: COMPARISON: 06/13/2018 HISTORY: Fever, possible fall TECHNIQUE: Axial CT imaging at 5 mm intervals from vertex through skull base without contrast FINDINGS: The visualized paranasal sinuses/mastoid air cells appear well aerated. Stable ventriculope ritoneal shunt tubing present, inserted via a right parietal approach. The third ventricle and the lateral ventricles are dilated, similar when compared to be 06/13/2018 examination. The lateral ventric les are markedly dilated, particularly the right lateral ventricle. There is evidence of prior right-sided craniotomy and extensive prior infarction within the right cerebral hemisphere. The elsy rial flap associated with the right-sided craniotomy is displaced laterally to the right, less severe than on the prior examination. There is an aneurysm clip in the right temporal region. No intracranial hemorrhage. IMPRESSION: Ventriculomegaly and postoperative change with evidence of prior MCA infarction on the ri ght. Stable right sided aneurysm clip. No significant interval change.
[2018-08-23] MEDS ORDERED: Famotidine/PF 20 mg/2ml Vial ONE (23:39)
[2018-08-23] MEDS ORDERED: methylPREDNISolone Sod Succ/PF 125 MG/2 ML VIAL ONE (23:39)
[2018-08-23] MEDS ORDERED: diphenhydrAMINE 50 MG/ML VIAL ONE (23:39)
[2018-08-24] MEDS: Sodium Chloride 0.9% 1,000 ML IV SCH ×3 (02:37→12:33)
[2018-08-24] MEDS ORDERED: Acetaminophen 325 MG TAB PO PRN (02:49)
[2018-08-24 03:55] VITALS: BMI 29.1
[2018-08-24] MEDS ORDERED: Acetaminophen 650 MG/20.3 ML UDCUP PO PRN (10:52)
[2018-08-24] MEDS ORDERED: Ondansetron ODT 4 MG TAB PO PRN (10:53)
[2018-08-24] MEDS ORDERED: Calcium Carbonate 500 MG ChewTAB PO PRN (10:53)
[2018-08-24] MEDS ORDERED: Dextrose 5% in Water 1,000 ML IV PRN (10:53)
[2018-08-24] MEDS ORDERED: Ondansetron PF 4 MG/2 ML Vial IVP PRN (10:53)
[2018-08-24] MEDS ORDERED: Insulin Regular 300 UNITS/3 ML VIAL SC PRN ×2 (10:53)
[2018-08-24] MEDS ORDERED: Senokot S 8.6-50 MG TAB PO PRN (10:53)
[2018-08-24] MEDS ORDERED: Dextrose 50% Abboject 50 ML SYRINGE SLOW IVP PRN (10:53)
[2018-08-24] MEDS ORDERED: Meropenem 1 GM in Sodium Chloride 0.9% 100 ML IVPB SCH (11:00)
[2018-08-24] MEDS ORDERED: levETIRAcetam 500 mg/5 ml Oral Solution PER TUBE SCH (11:15)
[2018-08-24] MEDS ORDERED: MEROPENEM 1 GM/50 ML 1 GM in Premix Bag 1 BAG IVPB SCH (11:45)
[2018-08-24] MEDS: MEROPENEM 1 GM/50 ML 1 GM in Premix Bag 1 BAG IVPB SCH ×2 (12:34→21:15)
--- NOTE | 2018-08-24 16:54 | EKG ---
Test Reason : Blood Pressure : / mmHG Vent. Rate : 115 BPM Atrial Rate : 115 BPM P-R Int : 126 ms QRS Dur : 072 ms QT Int : 314 ms P-R-T Axes : 059 003 -01 degrees QTc Int : 434 ms Sinus tachycardia Minimal voltage criteria for LVH, may be normal variant Borderline ECG Confirmed by GINA MUNGUIA D.O. ([id number]), commissioning editor SIDRA MAKI ([id number]) on 08/24/2018 4:53:46 PM Referred By: Confirmed By:GINA MUNGUIA D.O.
[2018-08-24] MEDS: Linezolid 600 MG in Premix Bag 1 BAG IVPB SCH (21:15)
[2018-08-24] MEDS: Enoxaparin Sodium 40 MG/0.4 ML SYRINGE SC SCH (21:15)
[2018-08-24] MEDS: levETIRAcetam 500 mg/5 ml Oral Solution PER TUBE SCH (21:16)
[2018-08-24] MEDS: Metoprolol Tartrate 25 MG TAB PER TUBE SCH (21:16)
[2018-08-25] MEDS: Sodium Chloride 0.9% 1,000 ML IV SCH ×2 (03:19→12:44)
[2018-08-25] MEDS: MEROPENEM 1 GM/50 ML 1 GM in Premix Bag 1 BAG IVPB SCH ×3 (05:03→21:15)
[2018-08-25 05:27] LABS: #Basophils 0.1 thou/uL (0.0-0.2); #Eosinphils 0.1 thou/uL (0.0-0.7); #Monocytes 0.5 thou/uL (0.11-0.59); #Neutrophils 4.6 thou/uL (1.40-6.50); %Basophils 0.9 % (0.0-1.0); %Eosinophils 0.8 % (0.0-10.0); %Lymphocytes 36.3 % (21.0-51.0); %Monocytes 5.8 % (0.0-10.0); %Neutrophils 56.1 % (42.0-75.0); Hemoglobin 8.7 g/dL (12.0-16.0); Mean Corpuscular HGB CONC 30.9 g/dL (32.0-36.0); Mean Corpuscular Hemoglobin 26.2 pg (27.0-31.0); Mean Platelet Volume 6.8 fL (7.4-10.4); Platelet Count 540 thou/uL (130-400); RBC Distribution Width 14.7 % (11.5-14.5); Red Blood Cell (RBC) Count 3.33 mill/uL (4.20-5.40); White Blood Cell (WBC) Count 8.2 thou/uL (4.8-10.8)
[2018-08-25 05:47] LABS: Phosphorus 2.1 mg/dL (2.3-4.7)
[2018-08-25 05:49] LABS: ALT (SGPT) 17 U/L (8-55); AST (SGOT) 13 U/L (5-34); Alkaline Phosphatase 96 U/L (40-150); Anion Gap 11 mmol/L (10-20); BUN (Urea Nitrogen) 6 mg/dL (7.0-18.7); Bilirubin, Total 0.3 mg/dL (0.2-1.2); Calc. Creatinine Clearance 164 mL/min (70-130); Calcium 8.5 mg/dL (7.8-10.44); Carbon Dioxide 24 mmol/L (22-29); Chloride 98 mmol/L (98-107); Estimated GFR-MDRD Greater than 90; Globulin 4.3 g/dL (2.4-3.5); Glucose 119 mg/dL (70-105); Potassium 3.1 mmol/L (3.5-5.1); Protein, Total 7.3 g/dL (6.0-8.3); Sodium 130 mmol/L (136-145)
--- NOTE | 2018-08-25 08:07 | PDOC.EVN ---
Event Note - Event Note Event Note: H&P dictated on 08/24 around 10 am
[2018-08-25] MEDS: levETIRAcetam 500 mg/5 ml Oral Solution PER TUBE SCH ×2 (08:36→21:16)
[2018-08-25] MEDS: Linezolid 600 MG in Premix Bag 1 BAG IVPB SCH ×2 (08:36→21:15)
[2018-08-25] MEDS: Metoprolol Tartrate 25 MG TAB PER TUBE SCH ×2 (08:37→21:16)
[2018-08-25] MEDS: Saccharomyces boulardii 250 MG CAP PER TUBE SCH (08:37)
[2018-08-25] MEDS: Pantoprazole 40 MG GRANULES PACKET PER TUBE SCH (08:37)
--- NOTE | 2018-08-25 13:28 | PDOC.FM ---
- Subjective Subjective: Patient is seen early this morning sleeping. She was originally admitted to [facility], but this morning is turned over to the [facility] Residency Service. She was initially seen for fever with unstable vitals and met sepsis criteria. [facility] a [facility] resident. She has a history of intracranial hemorrhage and is non-verbal and non-ambulating at baseline. She is unable to voice complaints or answer questions. No family members in room. Nurse states no major events overnight but did note she documented several pressure wounds on the patient in her sacral, inguinal, and feet body areas. Patient's pugh cath was replaced yesterday. RN reports fever yesterday afternoon of 101F that self-resolved with no medication manager. ROS: Unobtainable due to non-verbal patient. Allergies: Levaquin (severe hives), Vancomycin (rash), Zosyn, Codeine sulfate - Objective MAR Reviewed: Yes Vital Signs & Weight: Vital Signs (12 hours) Temp Pulse Resp BP Pulse Ox 08/25/18 11:18 98.7 F 90 20 133/87 95 08/25/18 08:35 96 08/25/18 07:18 98.1 F 95 20 127/87 96 08/25/18 04:00 98.3 F 95 18 126/72 97 Weight Admit Weight 72.235 kg Weight 72.235 kg I&O: 08/24/18 08/25/18 08/26/18 06:59 06:59 06:59 Intake Total 489 5370 674 Output Total 650 1775 Balance -161 6205 674 Result Diagrams: 08/25/18 04:59 08/25/18 04:59 EKG Reviewed by me: Yes (Sinus tachycardia) Radiology Reviewed by me: Yes Radiology: CXR: No acute pathology Head CT: No acute pathology. Ventriculomegaly and postoperative change with evidence of prior MCA infarction on right. Stable right sided aneurysm clip. No significant interval change. Phys Exam - Physical Examination Constitutional: NAD HEENT: moist MMs POOL LIFEGUARD tubing & shunt palpable on right side of skull, clean & dry Neck: no JVD, supple Trach hole healing/closed with no apparent breakdown Respiratory: no wheezing, clear to auscultation bilateral Cardiovascular: RRR, no significant murmur Gastrointestinal: soft, no distention, positive bowel sounds Musculoskeletal: no edema, pulses present Deviation from normal: Patient not alert on exam. Not oriented at baseline. Skin: normal turgor Deviation from normal: Multiple dependent pressure ulcers present on sacrum, inguinal areas, foot Dx/Plan (1) Pressure ulcer of sacral region, stage 2 Code(s): L89.152 - PRESSURE ULCER OF SACRAL REGION, STAGE 2 Status: Acute (2) Pressure ulcer of right foot, stage 1 Code(s): L89.891 - PRESSURE ULCER OF OTHER SITE, STAGE 1 Status: Acute (3) Hypokalemia Code(s): E87.6 - HYPOKALEMIA Status: Acute (4) Sepsis Code(s): A41.9 - SEPSIS, UNSPECIFIED ORGANISM Status: Acute Qualifiers: Sepsis type: Streptococcus, other Qualified Code(s): A40.8 - Other streptococcal sepsis (5) UTI (urinary tract infection) Status: Acute Qualifiers: Urinary tract infection type: acute cystitis Hematuria presence: without hematuria Qualified Code(s): N30.00 - Acute cystitis without hematuria (6) Chronic anemia Code(s): D64.9 - ANEMIA, UNSPECIFIED Status: Chronic (7) GERD (gastroesophageal reflux disease) Code(s): K21.9 - GASTRO-ESOPHAGEAL REFLUX DISEASE WITHOUT ESOPHAGITIS Status: Chronic Qualifiers: Esophagitis presence: esophagitis presence not specified Qualified Code(s) : K21.9 - Gastro-esophageal reflux disease without esophagitis (8) HTN (hypertension) Code(s): I10 - ESSENTIAL (PRIMARY) HYPERTENSION Status: Chronic Qualifiers: Hypertension type: essential hypertension Qualified Code(s): I10 - Essential (primary) hypertension (9) Seizure disorder Code(s): G40.909 - EPILEPSY, UNSP, NOT INTRACTABLE, WITHOUT STATUS EPILEPTICUS Status: Chronic (10) Status post craniectomy Code(s): Z98.890 - OTHER SPECIFIED POSTPROCEDURAL STATES Status: Chronic (11) Noninfected skin tear of right leg Code(s): S81.811A - LACERATION W/O FOREIGN BODY, RIGHT LOWER LEG, INIT ENCNTR Status: Acute Qualifiers: Encounter type: initial encounter Qualified Code(s): S81.811A - Laceration without foreign body, right lower leg, initial encounter - Plan Plan: 48 yo female admitted for Fever 1. Sepsis, secondary to UTI -admission vitals: max temp 102.3 on 08/23 with down to 98.8 on 08/24, tachycardic HR 113, resp. rate 26 -Lactic acid 1.6 , Platelets 683, WBC 7.8 -CT Head & CXR: No acute pathology -ID ConsultDrfrank Mercado recs. -Blood cultures- in right arm positive in 1 of 2 for methicillin-resistant Staph. Epidermidis, in left arm 2 of 2 positive for gram-positive cocci in clusters -Urine cultures- preliminary results showed possible mixed culture at 12 hours -daily CBC, CMP -Mag 2.0, Phos 2.1, TSH -Tylenol 650mg ordered prn for fever/pain -Meropenem 1g q8hr, Linezolid 600 mg q12hr 2. UTI, Acute Cystitis -UA positive: large leukocyte, positive nitrite, 100 Protein, large blood, 21- 50 RBCs, 21-50 WBCs, 1+ calcium oxalate crystals 1+, Amorphous crystals 3+ -Zofran 4mg q6hr prn for nausea/vomiting 3. Pressure ulcer to sacrum, stage II -3 small 0.5cm x 0.5cm superficial wounds in gluteal fold, also non-blanchable redness to left posterior thigh -Pressure ulcer precautions in place. Will instruct to lay patient on side to relieve pressure to gluteal fold. -will order Wound care consult 4. Pressure ulcer to right foot, stage I -will order Wound care consult 5. Skin tear to right leg, inguinal region -Wound care ordered 6. Anemia -08/24 Hgb: 9.4, Hct 30.8, MCV 85.6 -08/25 Hgb: 8.7, Hct 28.3 7. Diabetes mellitus, type 2 -Mild SSI ordered -Diabetes & Hypoglycemia protocols ordered -Dietary consult for tube feeds ordered 8. GERD -Protonix 40 mg daily 9. Hypertension -home med Metoprolol 25 mg BID continued 10. History of Right Cerebral Hemorrhage with involvement of globus pallidus, putamen, & rancho -history of right fronto-temporal hemicraniectomy with duraplasty -nonverbal and non-ambulating at baseline -CT Head: POOL LIFEGUARD shunt present. Ventriculomegaly and post-op change with evidence of prior MCA infarction on right. Stable right sided aneurysm clip. No significant interval change. -Pugh catheter in place -PT/OT Consult -Senna BID prn for constipation -Fall precaution ordered 11. History of Epilepsy -home med Keppra 500mg continued -Seizure & Aspiration precautions ordered Code Status: Full Diet: Tube feeding VTE: SCDs, Lovenox Dispo: Patient stable, admitted to medicine floor with expected LOS >48 hrs. Addendum - Attending - Attending Attestation Date/Time: 08/25/18 8169 I personally evaluated the patient and discussed the management with Dr. Armstrong I agree with the History, Examination, Assessment and Plan documented above with any addition or exceptions noted below. Patient well known to [facility] admitted with sepsis to hospitalist service. History recent revision cranioplasty s/p ICH with intraventricular shunt placement. Continue current antibiotic regimen pending culture and sensitivity results. Patient decreased responsiveness but appears to be at her baseline mental functioning I appreciate no purposeful response to commands. palliative and wound care continue tube feeding and supportive care.
[2018-08-25] MEDS ORDERED: Potassium Chloride 20 MEQ TAB PO SCH (15:30)
[2018-08-25] MEDS ORDERED: PHOS-NAK 1 PKT PACK PO SCH (15:30)
--- NOTE | 2018-08-25 16:12 | CON ---
DATE OF CONSULTATION: 08/25/2018 REASON FOR CONSULTATION: Fever. 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 Has had various complications in the past related to drug hypersensitivity and then aspiration, and in June, she was admitted with fever. At that time, the patient had a white cell count of 13.9, and 80% neutrophils. Urinalysis had 4 to 6 wbc's, and 2 sets of blood cultures with Staphylococcus epidermidis. An echocardiogram performed without evidence of any vegetations. Abdomen and pelvis demonstrated linear scarring at the right posterior lung base, a percutaneous gastrostomy tube in place, and there is some hyperdense material within the left side of the urinary bladder favored to be contrast. At that time, I felt that the Staphylococcus epidermidis was more likely nutrition representative of contamination of sample rather than true bacteremia. This was mainly because of the lack of an intravascular device or of catheter. She was readmitted on August 04, and this time was for an elective cranioplasty procedure. The flap was repaired and the piece of silastic sheeting was removed. Bone margins identified. The bone flap was then replaced with 3-point fixation. Wound irrigated. The patient was readmitted on August 23 with new onset of fever according to the nursing staff at the shelter. I spoke with the nurse who took care of her at the shelter, and there had been no evidence of respiratory complications, no diarrhea, and no skin inflammatory changes. She has had no seizure activity and always carries an indwelling Ortega catheter. Initial findings included temperature 99 here in the emergency room and BP 115/74. In the shelter, the temperature max was 102.9, pulse 113. The scalp and incision appeared healed and without inflammatory changes. Gastrostomy tube appeared normal. The lungs were clear to auscultation and percussion. Initial laboratory data; white cell count 7.8, hemoglobin 9.4, platelets 683 with 65% neutrophils. Creatinine 0.49. Liver profile normal. Albumin 3.0. Urinalysis with 21 to 50 wbc's. Currently, Ms. Norwood is unresponsive, it is her usual state as in previous examinations in this hospital. PAST MEDICAL HISTORY: Intracranial hemorrhage, craniectomy, diabetes type 2, CRANE ASSEMBLER shunt, aspiration pneumonia, UTIs, Dilantin-associated hypersensitivity reaction, pulmonary embolism, adenoviral pneumonia, chronic indwelling Ortega catheter. PAST SURGICAL HISTORY: Cholecystectomy, PEG tube placement, CRANE ASSEMBLER shunt placement, repair of brain aneurysm, craniectomy site bone flap repair and replacement. ALLERGIES: CODEINE, SULFA DRUGS, VANCOMYCIN, AND ZOSYN. FAMILY HISTORY: Noncontributory. SOCIAL HISTORY: [facility] resident. Never smoker. CURRENT MEDICATIONS: 1. Tylenol. 2. Tums. 3. Dextrose. 4. Lovenox. 5. Glucagon. 6. Humulin insulin. 7. Linezolid. 8. Meropenem. 9. Metoprolol. 10. Protonix. 11. Florastor. PHYSICAL EXAMINATION: VITAL SIGNS: T-max 101. She has been afebrile since yesterday. BP 130/87, pulse 90, respirations 20, O2 saturation 95. SKIN: With linear markings from the left groin, probably Ortega catheter markings. There is some perianal/perineal stage II ulcerations with area of maceration and erythema. There is a left first MPJ area of erythema, probably pressure-induced, which has improved since this picture was taken. The patient has a peripheral IV access. Gastrostomy tube appears normal, the exit site. HEENT: Disconjugate eye movements with nystagmus with a rapid beat segment to the right. Sclerae are white. Pupils are equal, about 2 mm. Could not evaluate oral cavity. The patient would not open the area for exam. LUNGS: With symmetric clear breath sounds. HEART: S1 and S2, regular rate without murmurs. ABDOMEN: Not distended and soft. No guarding. No ascites or organomegaly. No bladder distention. Ortega catheter. EXTREMITIES: She has contractures of upper extremities. She is starting to develop contractures in the lower extremities. Plantar responses are flexor without clonus. Pulses are 2+ in dorsalis pedis. She is unresponsive, in a vegetative state. LABORATORY DATA: Labs have been reviewed above with followup CBC with a white cell count 8.2, hemoglobin 8.7, MCV 85, platelets 540 with a normal differential. PH of 7.43, pCO2 of 44, pO2 of 99, this is a venous sample. Cultures with E. faecalis in the urine greater than 100,000 CFUs and E. coli greater than 100,000 CFUs, pending susceptibility profile. Two out of two sets of blood cultures from the obtained about 10 minutes apart with Staphylococcus epidermidis. ASSESSMENT: 1. Intracranial hemorrhage with severe neurological impairment, vegetative state. 2. Recent cranioplasty. 3. Recurrent episodes of various complications including respiratory with aspiration as well as urinary tract infection among other complications. 4. Recurrence of fever. 5. Abnormal urinalysis. 6. Bacteremia. DISCUSSION: Differential diagnosis includes an invasive UTI associated with chronic indwelling Ortega catheter versus Staphylococcus epidermidis endovascular infection versus thromboembolism. Complication of the recent surgical procedure is not apparent at this time. We will repeat the CT stone protocol to evaluate her area. May add contrast to the study and treat the organisms isolated in the urinary tract. Waiting on the susceptibility results for final disposition. The Staphylococcus epidermidis is more likely to represent a contamination of sample at this point in time. Job ID: [id number]
[2018-08-25] MEDS: Enoxaparin Sodium 40 MG/0.4 ML SYRINGE SC SCH (21:16)
[2018-08-26] MEDS: Sodium Chloride 0.9% 1,000 ML IV SCH ×2 (04:15→16:27)
[2018-08-26] MEDS: MEROPENEM 1 GM/50 ML 1 GM in Premix Bag 1 BAG IVPB SCH ×3 (04:48→21:13)
[2018-08-26 05:09] LABS: #Eosinphils 0.1 thou/uL (0.0-0.7); #Lymphocytes 1.7 thou/uL (1.20-3.40); #Monocytes 0.4 thou/uL (0.11-0.59); #Neutrophils 3.7 thou/uL (1.40-6.50); %Basophils 0.5 % (0.0-1.0); %Eosinophils 2.4 % (0.0-10.0); %Lymphocytes 28.7 % (21.0-51.0); %Monocytes 6.4 % (0.0-10.0); %Neutrophils 62.1 % (42.0-75.0); Hemoglobin 9.4 g/dL (12.0-16.0); Mean Corpuscular HGB CONC 30.4 g/dL (32.0-36.0); Mean Corpuscular Hemoglobin 25.8 pg (27.0-31.0); Mean Corpuscular Volume 84.9 fL (78.0-98.0); Mean Platelet Volume 6.7 fL (7.4-10.4); Platelet Count 567 thou/uL (130-400); RBC Distribution Width 15.1 % (11.5-14.5); Red Blood Cell (RBC) Count 3.65 mill/uL (4.20-5.40)
[2018-08-26 05:25] LABS: Phosphorus 2.3 mg/dL (2.3-4.7)
[2018-08-26 05:27] LABS: ALT (SGPT) 26 U/L (8-55); AST (SGOT) 18 U/L (5-34); Albumin 3.2 g/dL (3.5-5.0); Alkaline Phosphatase 101 U/L (40-150); Anion Gap 12 mmol/L (10-20); BUN (Urea Nitrogen) 6 mg/dL (7.0-18.7); Bilirubin, Total 0.3 mg/dL (0.2-1.2); Calc. Creatinine Clearance 160 mL/min (70-130); Carbon Dioxide 25 mmol/L (22-29); Chloride 100 mmol/L (98-107); Estimated GFR-MDRD Greater than 90; Globulin 4.3 g/dL (2.4-3.5); Glucose 132 mg/dL (70-105); Potassium 3.6 mmol/L (3.5-5.1); Protein, Total 7.5 g/dL (6.0-8.3); Sodium 133 mmol/L (136-145)
--- NOTE | 2018-08-26 06:05 | PDOC.FM ---
- Subjective Subjective: VSS. Tmax 100.2 F at 1558 on 08/25. Patient is nonverbal at baseline. GCS 5 (1E- 1V-M3). No family present to speak with this AM. - Objective MAR Reviewed: Yes Vital Signs & Weight: Vital Signs (12 hours) Temp Pulse Resp BP Pulse Ox 08/26/18 00:00 99.3 F 08/25/18 20:00 96 08/25/18 19:07 99.1 F 95 20 117/79 95 08/25/18 18:20 99.2 F Weight Admit Weight 72.235 kg Weight 72.235 kg I&O: 08/24/18 08/25/18 08/26/18 06:59 06:59 06:59 Intake Total 489 5370 4308 Output Total 650 1775 3350 Balance -161 3595 958 Result Diagrams: 08/26/18 04:47 08/26/18 04:47 Phys Exam - Physical Examination Respiratory: clear to auscultation bilateral Cardiovascular: RRR, no significant murmur Gastrointestinal: soft, no distention, positive bowel sounds (PEG tube in place. Appears clean, dry, and nonerythematous.) Dx/Plan (1) UTI (urinary tract infection) Status: Acute Qualifiers: Urinary tract infection type: acute cystitis Hematuria presence: without hematuria Qualified Code(s): N30.00 - Acute cystitis without hematuria (2) Hydrocephalus Code(s): G91.9 - HYDROCEPHALUS, UNSPECIFIED Status: Acute (3) Chronic anemia Code(s): D64.9 - ANEMIA, UNSPECIFIED Status: Chronic (4) Seizure disorder Code(s): G40.909 - EPILEPSY, UNSP, NOT INTRACTABLE, WITHOUT STATUS EPILEPTICUS Status: Chronic (5) GERD (gastroesophageal reflux disease) Code(s): K21.9 - GASTRO-ESOPHAGEAL REFLUX DISEASE WITHOUT ESOPHAGITIS Status: Chronic Qualifiers: Esophagitis presence: esophagitis presence not specified Qualified Code(s) : K21.9 - Gastro-esophageal reflux disease without esophagitis (6) HTN (hypertension) Code(s): I10 - ESSENTIAL (PRIMARY) HYPERTENSION Status: Chronic Qualifiers: Hypertension type: essential hypertension Qualified Code(s): I10 - Essential (primary) hypertension (7) DM2 (diabetes mellitus, type 2) Status: Resolved Qualifiers: Diabetes mellitus terminal operations manager insulin use: without fpc use Diabetes mellitus complication status: without complication Qualified Code(s): E11.9 - Type 2 diabetes mellitus without complications (8) Pressure ulcer of sacral region, stage 2 Code(s): L89.152 - PRESSURE ULCER OF SACRAL REGION, STAGE 2 Status: Acute (9) Pressure ulcer of right foot, stage 1 Code(s): L89.891 - PRESSURE ULCER OF OTHER SITE, STAGE 1 Status: Acute (10) Hypokalemia Code(s): E87.6 - HYPOKALEMIA Status: Acute (11) Presence of externally removable percutaneous endoscopic gastrostomy (PEG) tube Code(s): Z93.1 - GASTROSTOMY STATUS Status: Acute - Plan Plan: 48 yo female admitted for Fever on 08/23: 1. Sepsis, secondary to UTI - Tmax 100.2 on 08/25 at 1558 - ID ConsultDr. Villegas, appreciate recs. - Blood cultures: 2/2 positive, MRSE. [place] to be contaminant per Dr. Villegas. - Urine culture: positive for E. Faecalis, presumed E. coli. * Sensitive to Nitrofurantoin, imipenem, vancomycin, ampicillin. - Daily CBC, CMP - Mag 2.0, Phos 2.3 (repleted yesterday), Potassium 3.6 (repleted yesterday) - Tylenol 650mg ordered prn for fever/pain - Continue abx: Meropenem 1g q8hr. Day 3 (received 2 full days). Linezolid 600 mg q12hr Day 2 (has received 3 doses) - CT stone protocol today. - Zofran 4mg q6hr prn for nausea/vomiting - Ortega catheter in place. Changed yesterday after administration of abx had begun. 2. Pressure ulcer to sacrum, stage II 3. Pressure ulcer to right foot, stage I 4. Skin tear to right leg, inguinal region - 3 small 0.5cm x 0.5cm superficial wounds in gluteal fold, also non-blanchable redness to left posterior thigh - Pressure ulcer precautions in place. - Wound care consult 5. Anemia - Monitor w/ CBC daily. - Hgb: 9.4--> 8.7--> 9.4 6. Diabetes mellitus, type 2 - Mild SSI ordered - Diabetes & Hypoglycemia protocols - Dietary consult for tube feeds 7. GERD - Protonix 40 mg daily 8. Hypertension - home med Metoprolol 25 mg BID continued 9. History of Right Cerebral Hemorrhage with involvement of globus pallidus, putamen, & rancho - History of right fronto-temporal hemicraniectomy with duraplasty - Nonverbal and non-ambulating at baseline - CT Head: SLD EDUCATIONAL AIDE shunt present. - PT/OT Eval/treat - Senna BID prn for constipation - Fall precautions 10. History of Epilepsy - Continue home Keppra 500mg BID - Seizure & Aspiration precautions Code Status: Full Diet: Tube feeds VTE: SCDs, Lovenox Mai Graham MD PGY-1 Addendum - Attending - Attending Attestation Date/Time: 08/26/18 7651 I personally evaluated the patient and discussed the management with Dr. Graham. I agree with the History, Examination, Assessment and Plan documented above with any addition or exceptions noted below. Continue antibiotics, await CT and any additional recs from Dr. Villegas. PT/OT.
--- NOTE | 2018-08-26 08:03 | HP ---
PRIMARY CARE DOCTOR: Dr. Jacobson. Please note the patient is currently at correction facility under the care of Dr. Forbes. CHIEF COMPLAINT: Fever. HISTORY OF PRESENT ILLNESS: The patient is a 48-year-old female with hemorrhagic CVA from ruptured aneurysm with subsequent trach and PEG tube placement in the past, was sent to the emergency room from [facility] with above complaints. Please note, the patient was sent to [facility] for correction. The patient was admitted to this facility from 24 July 2018 to 26 July 2018 with a diagnosis of sepsis secondary to UTI by marriage and family teacher team. She was placed on IV cefepime and gentamicin during the hospital stay. History obtained from the nursing staff from [facility]. The patient's baseline is, she does not respond most of the time to any stimulus. At times, she may open her eyes. She has been having low-grade fever that is responding to Tylenol. While patient was working with physical therapy, she lost balance and gradually slid to the floor. She was also evaluated by Neurology as outpatient per correction staff. She was found to have a fever of 102 to 102.9 degree Fahrenheit at the correction that started yesterday. She has a chronic indwelling Ortega catheter. She also underwent replacement of the bone flap three weeks ago at this facility. No other information is available from the patient. In the emergency room, her initial vital signs showed rectal temperature of 99, respirations of 22, pulse rate of 113, with a blood pressure of 115/74 with O2 saturation 96% on room air. She received 125 Solu-Medrol, 20 mg Pepcid, 50 mg Benadryl, 1 L IV fluid, 750 Levaquin with a repeat 1 L IV fluid and was transferred to room 4402. She is not following any commands at this time. PAST MEDICAL HISTORY: 1. Hemorrhagic CVA from her ruptured aneurysm. 2. Diabetes mellitus type 2. 3. Gastroesophageal reflux disease. 4. Hypertension. 5. Asthma. 6. Seizure disorder. 7. Chronic indwelling Ortega catheter. 8. Swallow dysfunction, currently has PEG tube. 9. Hydrocephalus. 10. Chronic constipation. PAST SURGICAL HISTORY: 1. Right frontal/temporal hemicraniectomy. 2. Endovascular repair of right MCA aneurysm. 3. Cholecystectomy. 4. Tracheostomy placement with subsequent removal. 5. PEG tube placement. 6. Recent replacement of bone flap. ALLERGIES: THE PATIENT IS ALLERGIC TO ZOSYN, VANCOMYCIN, CODEINE, AND LEVAQUIN. CURRENT MEDICATION: At the correction, (per correction record), 1. Keppra 500 mg twice a day. 2. Tylenol as needed. 3. Tube feeding Jevity 1.2, 1 can 4 times a day. 4. Metoprolol 25 mg twice a day. 5. Protonix 40 mg daily. 6. Pro-Stat 30 mL daily. SOCIAL HISTORY: As discussed above. I attempted to call the surrogate decision maker Zoila Aguilar at [phone] with no answer. The patient has medical power of defense attorney paperwork in the chart. We will try to discuss with the family when they arrive. FAMILY HISTORY: Cannot be obtained from the patient due to current cognitive status. REVIEW OF SYSTEMS: Cannot be obtained due to current cognitive status. PHYSICAL EXAMINATION: VITAL SIGNS: As discussed above. GENERAL: 48-year-old female, in no apparent distress. HEENT: Head, atraumatic, normocephalic. Sclerae anicteric. No oral lesion appreciated on limited examination, large healing scar over the right frontal scalp. NECK: Supple. No JVD. No carotid bruit. Trachea in midline. There is torticollis unchanged from baseline per ER report. LUNGS: Showed diminished air entry at bilateral bases. Scattered rhonchi. No wheezing or rales. HEART: S1, S2 present. Tachycardic. No heaves or pulsation. ABDOMEN: Soft. PEG tube site without any erythema, purulence, or induration. Bowel sounds present. No guarding, rebound. EXTREMITIES: No edema. NEUROLOGY: There is hypertonia with contractures in the right upper and right lower extremity. Left upper and left lower extremity with normal tone. The patient is not following any commands. Rest of the neurological examination could not be done due to current mentation. PSYCHIATRY: As discussed above. SKIN: Warm and dry. LYMPH NODES: No palpable lymph nodes in the neck. PERIPHERAL VASCULAR: Radial pulses palpable bilaterally. MUSCULOSKELETAL: No joint swelling or tenderness. LABORATORY FINDINGS: WBC count 7.8 with 65.6% neutrophils, hemoglobin 9.4, hematocrit 30.8. PT/INR, PTT normal range. ABGs showed pH 7.43 with pCO2 of 44.3, PO2 of 49.1, bicarbonate 29.8. Sodium 137, potassium 4.4, chloride 98, bicarb 29, BUN 11, creatinine 0.51. LFTs in normal range. Troponin was negative. Urinalysis showed turbid urine with nitrite positive, 21-50 rbc, 21-50 wbc's, large amount of leukocyte esterase with 1+ bacteria. Blood cultures so far have been negative. Urine culture from last admission showed gram-negative jin less than 10,000. Urine culture from 16 July 2018 showed enterobacter sensitive to quinolones and Bactrim. IMAGING STUDIES: Chest x-ray by my review was negative for infiltrate. CT scan of the brain by my review was negative for acute findings. EKG by my review showed sinus tachycardia with left ventricular hypertrophy. IMPRESSION: 1. Sepsis secondary to catheter associated urinary tract infection. 2. History of hemorrhagic cerebrovascular accident from ruptured aneurysm. 3. Chronic indwelling Ortega catheter. 4. Swallow dysfunction, status post PEG tube. 5. Hypertension. 6. Gastroesophageal reflux disease. 7. Diabetes mellitus type 2. 8. Mild intermittent asthma. 9. Epilepsy. 10. Physical deconditioning. 11. History of hydrocephalus. 12. Chronic anemia. 13. Vancomycin, Zosyn, Levaquin, and codeine allergy. PLAN: 1. The patient will be monitored on the medical floor. We will start her on IV meropenem due to penicillin allergy. Urine cultures have been sent and pending at this time. We will consult Infectious Disease, Dr. Villegas. Seizure precautions. Resume tube feeding. We will replace the Ortega catheter. Neuro checks. Resume Keppra as well as metoprolol and Protonix. 2. Fall and aspiration precautions. 3. DVT prophylaxis with Lovenox. 4. We will discuss the plan of care with the family when they arrive. Job ID: [id number]
--- NOTE | 2018-08-26 10:06 | CT ---
CT OF ABDOMEN AND PELVIS: DATE: 08/26/2018. COMPARISON: 06/13/2018. HISTORY: Sepsis, urinary tract infection. TECHNIQUE: Axial CT imaging at 5 mm intervals from lung bases through pubic symphysis without contrast. Coronal reformatted imaging obtained. FINDINGS: Lack of contrast media limits assessment of the viscera, bowel, vascular structures, and for lymphade nopathy. Ventriculoperitoneal shunt tubing is seen, terminating in the left upper quadrant. There are increase d linear densities noted in both lung bases, right greater than left, progressed since the prior examination. Findings may signify infectious pneumonitis within the lung bases and/or atelectatic marita nge. Cholecystectomy clips are present. No free intraperitoneal air noted. There is a Ortega catheter withi n the urinary bladder. Gastrostomy tube present. Limited assessment of the liver and spleen appear unremarkable. There is a complex heterogeneous mass in the right adrenal gland measuring 4.4 cm AP dimension and 3. 6 cm craniocaudal dimension. This has grown when compared to 01/02/2018 examination at which time it measured approximately 3.1 cm in AP dimension. It has also developed internal hyperdense component s demonstrating Hounsfield units of 70. Findings are suspicious for internal hemorrhage within this nonspecific right adrenal mass lesion. Left adrenal gland grossly unremarkable. Pancreas appears grossly unremarkable. There are numerous punctate intrarenal calculi noted bilaterally. There is no evidence for obstructive uropathy on either side. Limited assessment of the bowel without oral contrast media demonstrates no inflammatory change or ev idence of obstruction. The appendix is visualized and appears within normal limits.. There is multilevel lower lumbar spine facet hypertrophy. There is no worrisome lytic or blastic bone lesion seen. There is sclerosis of bilateral femoral heads suggesting probable avascular necrosis IMPRESSION: 1. Enlarging right adrenal mass with internal hyperdense component suggesting internal hemorrhage. Th is may represent interval hemorrhage within an adrenal adenoma. Short-term follow-up imaging advised to document resolution of this hemorrhage and thus exclude a more aggressive adrenal mass req uired. 2. No evidence for obstructive uropathy. Numerous punctate intrarenal calculi. 3. Increased density in both lung bases suggesting volume loss and/or infectious pneumonitis. Transcribed Date/Time: 08/26/2018 10:32 AM
[2018-08-26] MEDS: Metoprolol Tartrate 25 MG TAB PER TUBE SCH ×2 (10:14→21:14)
[2018-08-26] MEDS: Saccharomyces boulardii 250 MG CAP PER TUBE SCH (10:14)
[2018-08-26] MEDS: Pantoprazole 40 MG GRANULES PACKET PER TUBE SCH (10:14)
[2018-08-26] MEDS: Linezolid 600 MG in Premix Bag 1 BAG IVPB SCH ×2 (10:14→21:14)
[2018-08-26] MEDS: levETIRAcetam 500 mg/5 ml Oral Solution PER TUBE SCH ×2 (10:15→21:14)
[2018-08-26] MEDS: Enoxaparin Sodium 40 MG/0.4 ML SYRINGE SC SCH (21:14)
[2018-08-27] MEDS: MEROPENEM 1 GM/50 ML 1 GM in Premix Bag 1 BAG IVPB SCH ×3 (04:25→22:00)
[2018-08-27 06:40] LABS: #Eosinphils 0.2 thou/uL (0.0-0.7); #Lymphocytes 1.6 thou/uL (1.20-3.40); #Monocytes 0.3 thou/uL (0.11-0.59); #Neutrophils 4.6 thou/uL (1.40-6.50); %Basophils 0.5 % (0.0-1.0); %Eosinophils 3.5 % (0.0-10.0); %Lymphocytes 24.3 % (21.0-51.0); %Monocytes 4.5 % (0.0-10.0); %Neutrophils 67.3 % (42.0-75.0); Hemoglobin 10.2 g/dL (12.0-16.0); Mean Corpuscular Hemoglobin 25.6 pg (27.0-31.0); Mean Corpuscular Volume 85.4 fL (78.0-98.0); Mean Platelet Volume 6.9 fL (7.4-10.4); Platelet Count 527 thou/uL (130-400); Platelet Morphology Comment Appears Increased; RBC Distribution Width 15.3 % (11.5-14.5); White Blood Cell (WBC) Count 6.8 thou/uL (4.8-10.8)
[2018-08-27 06:57] LABS: ALT (SGPT) 32 U/L (8-55); AST (SGOT) 21 U/L (5-34); Albumin 3.3 g/dL (3.5-5.0); Alkaline Phosphatase 114 U/L (40-150); Anion Gap 12 mmol/L (10-20); BUN (Urea Nitrogen) 5 mg/dL (7.0-18.7); Bilirubin, Total 0.4 mg/dL (0.2-1.2); Calc. Creatinine Clearance 164 mL/min (70-130); Calcium 9.1 mg/dL (7.8-10.44); Carbon Dioxide 25 mmol/L (22-29); Chloride 101 mmol/L (98-107); Estimated GFR-MDRD Greater than 90; Globulin 4.2 g/dL (2.4-3.5); Glucose 118 mg/dL (70-105); Potassium 3.4 mmol/L (3.5-5.1); Protein, Total 7.5 g/dL (6.0-8.3); Sodium 135 mmol/L (136-145)
[2018-08-27] MEDS: Saccharomyces boulardii 250 MG CAP PER TUBE SCH (07:39)
[2018-08-27] MEDS: Pantoprazole 40 MG GRANULES PACKET PER TUBE SCH (07:39)
[2018-08-27] MEDS: Metoprolol Tartrate 25 MG TAB PER TUBE SCH ×2 (07:39→22:00)
[2018-08-27] MEDS: levETIRAcetam 500 mg/5 ml Oral Solution PER TUBE SCH ×2 (07:39→22:00)
[2018-08-27] MEDS: Sodium Chloride 0.9% 1,000 ML IV SCH ×2 (07:42→17:02)
--- NOTE | 2018-08-27 08:14 | PDOC.FM ---
- Subjective Subjective: VSS. Afebrile. No acute events overnight. Per nurse, patient has had some cough and drooling. Clear lungs to auscultation, however, nurse hears some gurgling over the throat. Set up suction and wondered if scopolamine patch might help. Otherwise, nurse reports family in room yesterday stated patient is usually more alert at baseline than she has been here and will obey commands usually. - Objective MAR Reviewed: Yes Vital Signs & Weight: Vital Signs (12 hours) Temp Pulse Resp BP Pulse Ox 08/27/18 07:55 98.1 F 103 H 20 124/87 96 Weight Admit Weight 72.235 kg Weight 72.235 kg I&O: 08/26/18 08/27/18 08/28/18 06:59 06:59 06:59 Intake Total 4308 3150 Output Total 3350 1650 1600 Balance 958 1500 -1600 Result Diagrams: 08/27/18 05:21 08/27/18 05:21 Phys Exam - Physical Examination Constitutional: NAD Respiratory: clear to auscultation bilateral Cardiovascular: RRR, no significant murmur Gastrointestinal: soft, non-tender, positive bowel sounds Musculoskeletal: no edema, pulses present Patient did not open eyes to voice or pain. Constantly flexed. Dx/Plan (1) UTI (urinary tract infection) Status: Acute Qualifiers: Urinary tract infection type: acute cystitis Hematuria presence: without hematuria Qualified Code(s): N30.00 - Acute cystitis without hematuria (2) Hydrocephalus Code(s): G91.9 - HYDROCEPHALUS, UNSPECIFIED Status: Acute (3) Chronic anemia Code(s): D64.9 - ANEMIA, UNSPECIFIED Status: Chronic (4) Seizure disorder Code(s): G40.909 - EPILEPSY, UNSP, NOT INTRACTABLE, WITHOUT STATUS EPILEPTICUS Status: Chronic (5) GERD (gastroesophageal reflux disease) Code(s): K21.9 - GASTRO-ESOPHAGEAL REFLUX DISEASE WITHOUT ESOPHAGITIS Status: Chronic Qualifiers: Esophagitis presence: esophagitis presence not specified Qualified Code(s) : K21.9 - Gastro-esophageal reflux disease without esophagitis (6) HTN (hypertension) Code(s): I10 - ESSENTIAL (PRIMARY) HYPERTENSION Status: Chronic Qualifiers: Hypertension type: essential hypertension Qualified Code(s): I10 - Essential (primary) hypertension (7) DM2 (diabetes mellitus, type 2) Status: Resolved Qualifiers: Diabetes mellitus [facility] insulin use: without [facility] use Diabetes mellitus complication status: without complication Qualified Code(s): E11.9 - Type 2 diabetes mellitus without complications (8) Pressure ulcer of sacral region, stage 2 Code(s): L89.152 - PRESSURE ULCER OF SACRAL REGION, STAGE 2 Status: Acute (9) Pressure ulcer of right foot, stage 1 Code(s): L89.891 - PRESSURE ULCER OF OTHER SITE, STAGE 1 Status: Acute (10) Hypokalemia Code(s): E87.6 - HYPOKALEMIA Status: Acute (11) Presence of externally removable percutaneous endoscopic gastrostomy (PEG) tube Code(s): Z93.1 - GASTROSTOMY STATUS Status: Acute - Plan Plan: 48 yo female admitted for Fever on 08/23: 1. Sepsis, secondary to UTI - ID ConsultDr. Villegas, appreciate recs. - Blood cultures: 2/2 positive, MRSE. [place] to be contaminant per Dr. Villegas. - Urine culture: positive for E. Faecalis, presumed E. coli. Sensitive to Nitrofurantoin, imipenem, vancomycin, ampicillin. - Daily CBC, CMP - Tylenol 650mg prn: fever, pain - Continue abx: Meropenem 1g q8hr- Day 4. Linezolid 600 mg q12hr Day 3 - CT stone protocol: R adrenal mass w/ intra-adrenal hemorrhage, numerous intrarenal calculi seen, no obstructive uropathy - Zofran 4mg q6hr prn for nausea/vomiting - Ortega catheter in place. 2. Pressure ulcer to sacrum, stage II 3. Pressure ulcer to right foot, stage I 4. Skin tear to right leg, inguinal region - 3 small 0.5cm x 0.5cm superficial wounds in gluteal fold, also non-blanchable redness to left posterior thigh - Pressure ulcer precautions in place. - Wound care consult 5. Anemia - Monitor w/ CBC daily. - Hgb improved 6. Diabetes mellitus, type 2 - Mild SSI ordered - Diabetes & Hypoglycemia protocols - Dietary consult for tube feeds. Appreciate recs 7. GERD - Protonix 40 mg daily 8. Hypertension - home med Metoprolol 25 mg BID continued 9. 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 - PT/OT Eval/treat - Senna BID prn for constipation - Fall precautions 10. History of Epilepsy - Continue home Keppra 500mg BID - Seizure & Aspiration precautions 11. Hypokalemia - Lab: 3.4 this AM. Repleted. - Magnesium, Phosphorus labs pending. Code Status: Full Diet: Tube feeds VTE: SCDs, Lovenox Mai Graham MD PGY-1
[2018-08-27] MEDS ORDERED: Scopolamine 1.5 mg/72 hour Patch TD PRN (08:21)
[2018-08-27] MEDS: Linezolid 600 MG in Premix Bag 1 BAG IVPB SCH ×2 (09:23→22:23)
[2018-08-27 09:55] LABS: Phosphorus 2.8 mg/dL (2.3-4.7)
[2018-08-27] MEDS ORDERED: Potassium Chloride 40 MEQ in Sodium Chloride 0.9% 250 ML 250 ML IVPB SCH (11:00)
--- NOTE | 2018-08-27 11:32 | PQF ---
CLINICAL DOCUMENTATION IMPROVEMENT CLARIFICATION FORM: ICD-10 Updated PLEASE DO AN ADDENDUM TO THE PROGRESS NOTE WITH ANY DOCUMENTATION UPDATES OR ADDITIONS AND CARRY THROUGH TO DC SUMMARY. THANK YOU. DATE: 08/27/2018 ATTN: Dr. Graham/ Attending Dr. Sutton Please exercise your independent, professional judgment in responding to the clarification form. Clinical indicators are provided on the bottom of this form for your review Please check appropriate box(s): [X] Sepsis secondary to catheter associated urinary tract infection. [ ] Sepsis, secondary to UTI [ ] Other diagnosis [ ] Unable to determine In addition, please specify: Present on Admission (POA): [X] Yes [ ] No [ ] Unable to determine For continuity of documentation, please document condition throughout progress notes and discharge summary. Thank You. CLINICAL INDICATORS - SIGNS / SYMPTOMS / LABS H&P(Ladha) 08/23: Sepsis secondary to catheter associated urinary tract infection. Chronic indwelling Ortega Catheter. PN 08/26-08/27: Sepsis, secondary to UTI. Urine culture: positive for E. Faecalis, presumed E. coli. RISKS: H&P: HX of hemorrhagic CVA with ruptured aneurysm. Chronic indwelling Ortega catheter. Swallow dysfunction, s/p PEG tube. HTN. DM 2. TREATMENT: Order 08/24: ID Consult MAR: Order 08/24: Meropenem 1 gm MAR: Order 08/24: Zyvox 600 mg IV PN 08/26: Ortega catheter in place. Changed yesterday after administration of abx had begun. Thank you, Tiffany (This form is maintained as a part of the permanent medical record) 2015 [id number] All Rights Reserved Tiffany Torres RN, BSN [email or web address] Office: [phone] [facility]
--- NOTE | 2018-08-27 13:30 | PRG ---
DATE OF SERVICE: 08/27/2018 Ms. Norwood is a very unfortunate 48-year-old lady with a history of a hemorrhagic stroke. She is in a mostly chronic vegetative state. She was admitted with urinary tract infection and is currently on broad-spectrum antibiotics recommended by ID. She is clinically stable with a blood pressure of 124/87 and pulse rate of 84, and she is afebrile. Job ID: [id number]
--- NOTE | 2018-08-27 17:35 | PRG ---
DATE OF SERVICE: 08/27/2018 SUBJECTIVE: Unresponsive as usual, has not had any diarrhea. OBJECTIVE: VITAL SIGNS: T-max 100.2 day before yesterday, she has been afebrile since. Blood pressure 120/80. GENERAL: She appears awake, but is not communicative as usual. LUNGS: Clear. HEENT: Craniectomy site appears normal. ABDOMEN: Soft and not distended. NEUROLOGIC: Unchanged. LABORATORY DATA: White cell count 6.8, hemoglobin 10, and platelets are 527. Sodium 135 and creatinine 0.49. Liver profile, normal. Albumin 3.3. Microbiology with the findings that we discussed before. The E coli is susceptible to quite a few antimicrobials except for Bactrim, levofloxacin, and Cipro. The Enterococcus faecalis is susceptible to ampicillin as expected. Abdomen and pelvis CT with enlarging right adrenal mass with internal hyperdense component suggesting internal hemorrhage, probably an adenoma. Again, no evidence of obstructive uropathy. ASSESSMENT AND DISCUSSION: Intracerebral hemorrhage, which required craniectomy and vegetative state, recent cranioplasty, recurrent episodes of various complications including respiratory infection, urinary tract infections, and now what appears to be another episode of invasive urinary tract infection in the face of indwelling Ortega catheter. One may consider a voiding trial to see if she would be able to make it without having to have an indwelling catheter. Otherwise, she will continue to have those invasive urinary tract infection episodes. Consider a voiding trial therefore, prior to discharge planning checking her bladder scans. She would be eligible for discharge planning on oral amoxicillin to treat this urinary tract infection for another few days. Job ID: [id number]
[2018-08-27] MEDS: Enoxaparin Sodium 40 MG/0.4 ML SYRINGE SC SCH (22:02)
[2018-08-28] MEDS: MEROPENEM 1 GM/50 ML 1 GM in Premix Bag 1 BAG IVPB SCH (04:45)
--- NOTE | 2018-08-28 06:20 | PDOC.FM ---
- Subjective Subjective: VSS. Afebrile. No acute events overnight. This morning patient had eyes open as she was being changed by nursing staff. Per nurse she had 3-4 heavy, wet diapers overnight after pugh was removed. No issues w/ secretions overnight. Asked nurse if patient was getting tube feeds since her total fluid balance documented was negative 1.9 L. Reported she was getting feeds. - Objective MAR Reviewed: Yes Vital Signs & Weight: Vital Signs (12 hours) Temp Pulse Resp BP Pulse Ox 08/27/18 20:00 97.5 F L 101 H 18 123/84 98 Weight Admit Weight 72.235 kg Weight 72.235 kg I&O: 08/26/18 08/27/18 08/28/18 06:59 06:59 06:59 Intake Total 4308 3150 624 Output Total 3350 1650 2600 Balance 958 1499 -1975 Result Diagrams: 08/28/18 05:47 08/28/18 05:47 Phys Exam - Physical Examination Constitutional: NAD HEENT: moist MMs Respiratory: no wheezing, clear to auscultation bilateral Cardiovascular: RRR, no significant murmur Gastrointestinal: soft, non-tender, positive bowel sounds Musculoskeletal: no edema, pulses present Dx/Plan (1) UTI (urinary tract infection) Status: Acute Qualifiers: Urinary tract infection type: acute cystitis Hematuria presence: without hematuria Qualified Code(s): N30.00 - Acute cystitis without hematuria (2) Hydrocephalus Code(s): G91.9 - HYDROCEPHALUS, UNSPECIFIED Status: Acute (3) Chronic anemia Code(s): D64.9 - ANEMIA, UNSPECIFIED Status: Chronic (4) Seizure disorder Code(s): G40.909 - EPILEPSY, UNSP, NOT INTRACTABLE, WITHOUT STATUS EPILEPTICUS Status: Chronic (5) GERD (gastroesophageal reflux disease) Code(s): K21.9 - GASTRO-ESOPHAGEAL REFLUX DISEASE WITHOUT ESOPHAGITIS Status: Chronic Qualifiers: Esophagitis presence: esophagitis presence not specified Qualified Code(s) : K21.9 - Gastro-esophageal reflux disease without esophagitis (6) HTN (hypertension) Code(s): I10 - ESSENTIAL (PRIMARY) HYPERTENSION Status: Chronic Qualifiers: Hypertension type: essential hypertension Qualified Code(s): I10 - Essential (primary) hypertension (7) DM2 (diabetes mellitus, type 2) Status: Resolved Qualifiers: Diabetes mellitus ferry terminal supervisor insulin use: without ferry terminal supervisor use Diabetes mellitus complication status: without complication Qualified Code(s): E11.9 - Type 2 diabetes mellitus without complications (8) Pressure ulcer of sacral region, stage 2 Code(s): L89.152 - PRESSURE ULCER OF SACRAL REGION, STAGE 2 Status: Acute (9) Pressure ulcer of right foot, stage 1 Code(s): L89.891 - PRESSURE ULCER OF OTHER SITE, STAGE 1 Status: Acute (10) Hypokalemia Code(s): E87.6 - HYPOKALEMIA Status: Acute (11) Presence of externally removable percutaneous endoscopic gastrostomy (PEG) tube Code(s): Z93.1 - GASTROSTOMY STATUS Status: Acute - Plan Plan: 48 yo female admitted for Fever on 08/23: 1. Sepsis, secondary to UTI - ID Consultfrank Finch recs. - D/C Meropenem - Continue abx: Linezolid 600 mg q12hr Day 4. - Consider transition to oral antibiotics. Will discuss w/ family patient's allergy to zosyn and see if amoxicillin can be given, per Dr. Villegas recs. - Will ask pharmacy for antibiotic recs as well. - Patient voiding adequately on her own. She may be eligible for discharge today to her group home. 2. Pressure ulcer to sacrum, stage II 3. Pressure ulcer to right foot, stage I 4. Skin tear to right leg, inguinal region - 3 small 0.5cm x 0.5cm superficial wounds in gluteal fold, also non-blanchable redness to left posterior thigh - Pressure ulcer precautions in place. - Wound care consult 5. Anemia - Hgb improved and stable. 6. Diabetes mellitus, type 2 - Mild SSI ordered - Diabetes & Hypoglycemia protocols - Dietary consult for tube feeds. Appreciate recs. 7. GERD - Protonix 40 mg daily 8. Hypertension - home med Metoprolol 25 mg BID continued 9. 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 - PT/OT Eval/treat - Senna BID prn for constipation - Fall precautions 10. History of Epilepsy - Continue home Keppra 500mg BID - Seizure & Aspiration precautions 11. Hypokalemia - Lab: 3.4 this AM. Repleted. Code Status: Full Diet: Tube feeds VTE: SCDs, Lovenox Mai Graham MD PGY-1 Addendum - Attending - Attending Attestation Date/Time: 08/28/18 4077 I personally evaluated the patient and discussed the management with Dr. Graham. I agree with the History, Examination, Assessment and Plan documented above with any addition or exceptions noted below.
[2018-08-28 06:37] LABS: #Eosinphils 0.2 thou/uL (0.0-0.7); #Lymphocytes 1.4 thou/uL (1.20-3.40); #Monocytes 0.2 thou/uL (0.11-0.59); #Neutrophils 4.2 thou/uL (1.40-6.50); %Basophils 0.6 % (0.0-1.0); %Eosinophils 2.9 % (0.0-10.0); %Lymphocytes 23.7 % (21.0-51.0); %Monocytes 3.8 % (0.0-10.0); Hemoglobin 9.6 g/dL (12.0-16.0); Mean Corpuscular HGB CONC 30.3 g/dL (32.0-36.0); Mean Corpuscular Hemoglobin 26.1 pg (27.0-31.0); Mean Corpuscular Volume 86.3 fL (78.0-98.0); Mean Platelet Volume 6.9 fL (7.4-10.4); Platelet Count 525 thou/uL (130-400); RBC Distribution Width 15.8 % (11.5-14.5); Red Blood Cell (RBC) Count 3.66 mill/uL (4.20-5.40)
[2018-08-28 06:55] LABS: ALT (SGPT) 26 U/L (8-55); AST (SGOT) 15 U/L (5-34); Albumin 3.1 g/dL (3.5-5.0); Alkaline Phosphatase 116 U/L (40-150); Anion Gap 11 mmol/L (10-20); BUN (Urea Nitrogen) 5 mg/dL (7.0-18.7); Bilirubin, Total 0.3 mg/dL (0.2-1.2); Calc. Creatinine Clearance 182 mL/min (70-130); Calcium 9.1 mg/dL (7.8-10.44); Carbon Dioxide 26 mmol/L (22-29); Chloride 104 mmol/L (98-107); Estimated GFR-MDRD Greater than 90; Globulin 4.1 g/dL (2.4-3.5); Glucose 93 mg/dL (70-105); Potassium 3.9 mmol/L (3.5-5.1); Protein, Total 7.2 g/dL (6.0-8.3); Sodium 137 mmol/L (136-145)
[2018-08-28] MEDS: levETIRAcetam 500 mg/5 ml Oral Solution PER TUBE SCH ×2 (08:14→22:11)
[2018-08-28] MEDS: Saccharomyces boulardii 250 MG CAP PER TUBE SCH (08:14)
[2018-08-28] MEDS: Pantoprazole 40 MG GRANULES PACKET PER TUBE SCH (08:15)
[2018-08-28] MEDS: Metoprolol Tartrate 25 MG TAB PER TUBE SCH ×2 (08:15→22:12)
[2018-08-28] MEDS: Linezolid 600 MG in Premix Bag 1 BAG IVPB SCH (09:00)
[2018-08-28] MEDS: Sodium Chloride 0.9% 1,000 ML IV SCH ×2 (11:12→22:50)
[2018-08-28] MEDS ORDERED: Fosfomycin 3 GM/Packet PO SCH ×2 (12:00→14:00)
[2018-08-28] MEDS: Enoxaparin Sodium 40 MG/0.4 ML SYRINGE SC SCH (22:11)
[2018-08-29] MEDS: Metoprolol Tartrate 25 MG TAB PER TUBE SCH ×2 (00:08→08:59)
--- NOTE | 2018-08-29 05:36 | PDOC.FM ---
- Subjective Subjective: Afebrile. Metoprolol was given later in the evening than usual. Overnight patient had episode of low BP to 85/59 and tachycardia to 120 bpm. Fluid bolus attempted; but rate of infusion was limited due to IV dysfunction. Vital signs stabilized w/ fluid rate of 75 mL/hr. Otherwise, patient had no problems and continues to void adequately. Patient was ready to be discharged yesterday, but [facility] said it was too late in the evening last night. Plan to d/c today. - Objective MAR Reviewed: Yes Vital Signs & Weight: Vital Signs (12 hours) Temp Pulse Resp BP BP Pulse Ox 08/29/18 00:00 97.8 F 18 101/69 100 08/28/18 20:50 104 H 102/60 08/28/18 20:00 97.6 F 108 H 18 97/66 100 Weight Admit Weight 72.235 kg Weight 72.235 kg I&O: 08/27/18 08/28/18 08/29/18 06:59 06:59 06:59 Intake Total 3150 624 624 Output Total 1650 2600 Balance 1500 -1975 624 Result Diagrams: 08/29/18 04:51 08/29/18 04:51 Phys Exam - Physical Examination Constitutional: NAD Respiratory: clear to auscultation bilateral Cardiovascular: RRR, no significant murmur Gastrointestinal: soft, non-tender, positive bowel sounds Dx/Plan (1) UTI (urinary tract infection) Status: Acute Qualifiers: Urinary tract infection type: acute cystitis Hematuria presence: without hematuria Qualified Code(s): N30.00 - Acute cystitis without hematuria (2) Hydrocephalus Code(s): G91.9 - HYDROCEPHALUS, UNSPECIFIED Status: Acute (3) Chronic anemia Code(s): D64.9 - ANEMIA, UNSPECIFIED Status: Chronic (4) Seizure disorder Code(s): G40.909 - EPILEPSY, UNSP, NOT INTRACTABLE, WITHOUT STATUS EPILEPTICUS Status: Chronic (5) GERD (gastroesophageal reflux disease) Code(s): K21.9 - GASTRO-ESOPHAGEAL REFLUX DISEASE WITHOUT ESOPHAGITIS Status: Chronic Qualifiers: Esophagitis presence: esophagitis presence not specified Qualified Code(s) : K21.9 - Gastro-esophageal reflux disease without esophagitis (6) HTN (hypertension) Code(s): I10 - ESSENTIAL (PRIMARY) HYPERTENSION Status: Chronic Qualifiers: Hypertension type: essential hypertension Qualified Code(s): I10 - Essential (primary) hypertension (7) DM2 (diabetes mellitus, type 2) Status: Resolved Qualifiers: Diabetes mellitus jail insulin use: without diagnostics sales developer use Diabetes mellitus complication status: without complication Qualified Code(s): E11.9 - Type 2 diabetes mellitus without complications (8) Pressure ulcer of sacral region, stage 2 Code(s): L89.152 - PRESSURE ULCER OF SACRAL REGION, STAGE 2 Status: Acute (9) Pressure ulcer of right foot, stage 1 Code(s): L89.891 - PRESSURE ULCER OF OTHER SITE, STAGE 1 Status: Acute (10) Hypokalemia Code(s): E87.6 - HYPOKALEMIA Status: Acute (11) Presence of externally removable percutaneous endoscopic gastrostomy (PEG) tube Code(s): Z93.1 - GASTROSTOMY STATUS Status: Acute - Plan Plan: Plan: 48 yo female admitted for Fever on 08/23: 1. Sepsis, secondary to UTI - ID ConsultDr. Bakari appreciate recs. - Discharge on fosfomycin 1 packet q2days for 5 days (3 doses) 2. Pressure ulcer to sacrum, stage II 3. Pressure ulcer to right foot, stage I 4. Skin tear to right leg, inguinal region - 3 small 0.5cm x 0.5cm superficial wounds in gluteal fold, also non-blanchable redness to left posterior thigh - Wound care and ulcer precautions at jail 5. Anemia - Stable 6. Diabetes mellitus, type 2 - Dietary consult for tube feeds. Appreciate recs. 7. GERD - Protonix 40 mg daily 8. Hypertension - home med Metoprolol 25 mg BID continued 9. 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 - PT/OT Eval/treat - Fall precautions 10. History of Epilepsy - Continue home Keppra 500mg BID - Seizure & Aspiration precautions 11. Hypokalemia - Resolved. Code Status: Full Diet: Tube feeds VTE: SCDs, Lovenox Mai Graham MD PGY-1 Dispo: plan to [facility]c to [facility] today Addendum - Attending - Attending Attestation Date/Time: 08/29/18 3333 I personally evaluated the patient and discussed the management with Dr. Graham. I agree with the History, Examination, Assessment and Plan documented above with any addition or exceptions noted below. D/c today, antimicrobials per Dr. Villegas, appreciate his expertise.
[2018-08-29 05:37] LABS: #Eosinphils 0.2 thou/uL (0.0-0.7); #Lymphocytes 1.3 thou/uL (1.20-3.40); #Monocytes 0.3 thou/uL (0.11-0.59); #Neutrophils 5.4 thou/uL (1.40-6.50); %Basophils 0.5 % (0.0-1.0); %Eosinophils 2.5 % (0.0-10.0); %Lymphocytes 17.8 % (21.0-51.0); %Monocytes 4.6 % (0.0-10.0); %Neutrophils 74.6 % (42.0-75.0); Hemoglobin 10.1 g/dL (12.0-16.0); Mean Corpuscular HGB CONC 31.4 g/dL (32.0-36.0); Mean Corpuscular Volume 85.9 fL (78.0-98.0); Platelet Count 484 thou/uL (130-400); RBC Distribution Width 16.2 % (11.5-14.5); Red Blood Cell (RBC) Count 3.75 mill/uL (4.20-5.40); White Blood Cell (WBC) Count 7.3 thou/uL (4.8-10.8)
[2018-08-29 05:58] LABS: ALT (SGPT) 24 U/L (8-55); AST (SGOT) 17 U/L (5-34); Albumin 3.1 g/dL (3.5-5.0); Alkaline Phosphatase 125 U/L (40-150); Anion Gap 12 mmol/L (10-20); BUN (Urea Nitrogen) 9 mg/dL (7.0-18.7); Bilirubin, Total 0.2 mg/dL (0.2-1.2); Calc. Creatinine Clearance 167 mL/min (70-130); Calcium 9.4 mg/dL (7.8-10.44); Carbon Dioxide 24 mmol/L (22-29); Chloride 104 mmol/L (98-107); Estimated GFR-MDRD Greater than 90; Globulin 4.1 g/dL (2.4-3.5); Glucose 162 mg/dL (70-105); Protein, Total 7.2 g/dL (6.0-8.3); Sodium 136 mmol/L (136-145)
[2018-08-29] MEDS: Saccharomyces boulardii 250 MG CAP PER TUBE SCH (08:56)
[2018-08-29] MEDS: Sodium Chloride 0.9% 1,000 ML IV SCH (08:56)
[2018-08-29] MEDS: Pantoprazole 40 MG GRANULES PACKET PER TUBE SCH (08:56)
[2018-08-29] MEDS: levETIRAcetam 500 mg/5 ml Oral Solution PER TUBE SCH (08:56)
[2018-08-29 15:23] VITALS: BP 129/75; TEMP 98.1
--- NOTE | 2018-08-30 13:34 | DIS ---
DATE OF ADMISSION: 08/23/2018 DATE OF DISCHARGE: 08/29/2018 RESIDENT: Mai Graham MD ADMITTING ATTENDING: [facility] physician, Dr. Lancaster DISCHARGE ATTENDING: Jac Sutton MD CONSULTS: Infectious Disease, OT, Wound Care, Dietitian PROCEDURES: 1. CT stone protocol 2. Brain CT. PRIMARY DIAGNOSIS: Sepsis secondary to catheter associated urinary tract infection. SECONDARY DIAGNOSES: 1. Pressure ulcer to sacrum stage II, 2. pressure ulcer to right foot stage I, 3. skin tearing to right leg inguinal region, 4. anemia, 5. diabetes mellitus type 2, 6. gastroesophageal reflux disease, 7. hypertension, 8. history of right cerebral hemorrhage, 9. history of epilepsy 10. hypokalemia. DISCHARGE MEDICATIONS: Fosfomycin one packet every 2 days for 3 doses. DISCONTINUED MEDICATIONS: None. HISTORY OF PRESENT ILLNESS AND HOSPITAL COURSE: This patient is a 48-year-old female with past medical history of hemorrhagic cardiovascular accident from ruptured aneurysm and PEG tube, who presented to the emergency room after having a fever at [facility] of 102.0 F. She arrived tachycardic in the 110s with a chronic indwelling Ortega catheter. The patient met sepsis criteria, so she was admitted under the [facility] physician, However, after realizing that the patient did not want the [place] [facility] physicians, the patient was transferred to our service. The patient was then cared for under us. The patient received IV antibiotics of meropenem and linezolid, so she may have antibiotic allergies. She was eventually transitioned to fosfomycin at the recommendation of Dr. Villegas from Infectious Disease. She was also noted to have many sacral wound; therefore, wound care was consulted. The patient did show an anemia on admission, but this was stable. For her diabetes, we consulted dietary to help manage her tube feeds through the PEG tube. For her GERD, hypertension, and epilepsy, we continue home medications. She initially presented with hypokalemia, but this was repleted. The patient recovered well, remained afebrile, and was discharged home. DISPOSITION: Stable. DISCHARGE INSTRUCTIONS: 1. Location: Home. 2. Diet: Carbohydrate consistent tube feeds. 3. Activity: As tolerated. 4. Followup: With PCP within 1 week. PT and OT to evaluate and treat. Mai Graham MD PGY-1 Job ID: [id number] JUAN
== END 2018-08-29 16:50 | DRG 698 ==
LOC: ERS 20:59 → T4-A 22:47
PROVIDERS: ADMIT Hospitalist; ATTEND Hospitalist
PROC: 0T2BX0Z Change Drainage Device in Bladder, External Approach (ICD-10-PCS; principal; 2018-08-26)
DX: T83.511A Infection and inflammatory reaction due to indwelling urethral catheter, initial encounter (principal); A40.8 Other streptococcal sepsis; N30.00 Acute cystitis without hematuria; G91.9 Hydrocephalus, unspecified; E11.9 Type 2 diabetes mellitus without complications; K21.9 Gastro-esophageal reflux disease without esophagitis; I10 Essential (primary) hypertension; G40.909 Epilepsy, unspecified, not intractable, without status epilepticus; F41.9 Anxiety disorder, unspecified; F31.9 Bipolar disorder, unspecified; L89.152 Pressure ulcer of sacral region, stage 2; E87.6 Hypokalemia; K59.09 Other constipation; J45.20 Mild intermittent asthma, uncomplicated; L89.891 Pressure ulcer of other site, stage 1; D64.9 Anemia, unspecified; L98.8 Other specified disorders of the skin and subcutaneous tissue; Y84.6 Urinary catheterization as the cause of abnormal reaction of the patient, or of later complication, without mention of misadventure at the time of the procedure; Z88.1 Allergy status to other antibiotic agents; Z86.73 Personal history of transient ischemic attack (TIA), and cerebral infarction without residual deficits; Z90.49 Acquired absence of other specified parts of digestive tract; Z93.1 Gastrostomy status; Z88.8 Allergy status to other drugs, medicaments and biological substances; Z88.0 Allergy status to penicillin; Z86.711 Personal history of pulmonary embolism; Z79.899 Other long term (current) drug therapy; Z98.890 Other specified postprocedural states
CPT/HCPCS: 36415; 36416; 70450; 71045; 74176; 80053; 81003; 81015; 82330; 82550; 82803; 83605; 83735; 84100; 84443; 84484; 85025; 85610; 85730; 87040; 87077; 87086; 87149; 87186; 93005; 96361; 96365; 96366; 96375; J1200; J1650; J1815; J1956; J2020; J2185; J2930; J3480; J3490; J7050; S0028

== ENCOUNTER 2018-08-30 05:18 | Emergency (ER) | payer MEDICARE, MEDICAID ==
--- NOTE | 2018-08-30 07:20 | RAD ---
KUB: DATE: 08/30/18 INDICATION: T-Tube check. FINDINGS: There is a gastrostomy tube within the left upper quadrant. There is contrast administered through th e gastrostomy tube with contrast filling the lumen of the stomach. No extraluminal extravasation is e vident. Ventriculoperitoneal shunt catheter tubing is seen coiled within the upper abdomen with the t ip in the left upper quadrant. Bowel gas pattern is unobstructed. No acute osseous abnormality is gilda dent. IMPRESSION: 1. Gastrostomy tube within the left upper quadrant with intraluminal contrast demonstrated within th e stomach. No extraluminal extravasation noted. 2. Ventriculoperitoneal shunt catheter. 3. Nonobstructed bowel gas pattern. POS: BH
[2018-08-30] MEDS ORDERED: GASTROGRAFIN 30 ML BOT ONE (11:52)
== END 2018-08-30 08:11 ==
LOC: ERS 05:18
DX: Z43.1 Encounter for attention to gastrostomy (principal); E11.9 Type 2 diabetes mellitus without complications; K21.9 Gastro-esophageal reflux disease without esophagitis; J45.909 Unspecified asthma, uncomplicated; G40.909 Epilepsy, unspecified, not intractable, without status epilepticus; F41.9 Anxiety disorder, unspecified; F31.9 Bipolar disorder, unspecified; Z86.73 Personal history of transient ischemic attack (TIA), and cerebral infarction without residual deficits; Z79.899 Other long term (current) drug therapy
CPT/HCPCS: 43762; 74018; B4087; Q9963

== ENCOUNTER 2018-12-04 08:42 | Inpatient (IN) | payer MEDICARE, MEDICAID ==
--- NOTE | 2018-12-03 14:12 | HP ---
HISTORY OF PRESENT ILLNESS: Ms. Norwood is a 48-year-old woman known to us for multiple intracranial interventions for ruptured aneurysm and subsequent hydrocephalus with shunting, craniectomy, and cranioplasty. She returns today with some worsening of her mental status from her baseline, which is already poor to begin with, as well as protuberance of the bone flap from the skull. Repeat CT scan reveals melania hydrocephalus and likely shunt failure with extraordinary large bilateral lateral ventricles, right much more so than left. Shunt is probably set at 0.5. Flap is visibly protuberant from her scalp. PAST MEDICAL HISTORY: Hemorrhagic stroke, type 2 diabetes, gastroesophageal reflux disease, hypertension, asthma, epilepsy, and hydrocephalus. PAST SURGICAL HISTORY: Right frontotemporal hemicraniectomy, cranioplasty, cholecystectomy, PEG tube, and PLATER HOT DIP shunt. PHYSICAL EXAMINATION: GENERAL: The patient is somnolent and minimally responsive. EXTREMITIES: She does not move any extremities except to extremely deep pain. She moves some. HEENT: Pupils are reactive to light, though sluggish. She has a bony protuberance over the right frontotemporal scalp, where her bone flap was replaced. ALLERGIES: NO KNOWN DRUG ALLERGIES. ASSESSMENT: Melania hydrocephalus and shunt failure. PLAN: Dr. Jeong reviewed her imaging that with the family and then ultimately advocated for left-sided PLATER HOT DIP shunt placement. He explained the risks, benefits, and alternatives to the procedure. The patient expressed understanding and elected to move forward with surgery as discussed. I do believe the patient is mentally competent and capable of making medical decisions for herself. We will move forward with surgery as planned. Job ID: [id number]
[2018-12-04] MEDS ORDERED: Clindamycin/D5W 900 mg/50 ml Premix Bag ONE (11:08)
[2018-12-04] MEDS ORDERED: Fentanyl 100 MCG/2 ML VIAL ONE ×2 (11:16→14:05)
[2018-12-04] MEDS ORDERED: Lidocaine 2% Jelly 5 ML TUBE ONE (11:16)
[2018-12-04] MEDS ORDERED: Sodium Chloride 0.9% 10 ML ONE (12:12)
[2018-12-04] MEDS ORDERED: Lidocaine 0.5%/Epinephrine 1:200,000 50 ml Vial ONE (12:12)
[2018-12-04] MEDS ORDERED: Bacitracin Zinc Ointment 30 gm TUBE ONE (14:03)
[2018-12-04] MEDS ORDERED: Morphine 2 MG/ML SYRINGE SLOW IVP PRN (14:59)
[2018-12-04] MEDS ORDERED: Docusate 100 MG CAP PO PRN (14:59)
[2018-12-04] MEDS ORDERED: Ondansetron PF 4 MG/2 ML Vial IVP PRN (14:59)
[2018-12-04] MEDS ORDERED: Labetalol HCl 100 MG/20 ML VIAL SLOW IVP PRN (14:59)
[2018-12-04] MEDS ORDERED: hydrALAZINE 20 MG/ML VIAL SLOW IVP PRN (14:59)
[2018-12-04] MEDS ORDERED: diphenhydrAMINE 50 MG/ML VIAL IVP PRN (14:59)
[2018-12-04] MEDS ORDERED: Acetaminophen 650 MG Suppository PR PRN (14:59)
[2018-12-04] MEDS ORDERED: hydrOXYzine 10 MG/5 ML UDCUP PER TUBE PRN (15:03)
[2018-12-04] MEDS ORDERED: INSULIN REGULAR SQ PRN (15:03)
[2018-12-04] MEDS ORDERED: cloNIDine 0.1 MG TAB PER TUBE PRN (15:03)
[2018-12-04] MEDS ORDERED: Bisacodyl 10 MG SUPP PR PRN (15:03)
[2018-12-04] MEDS ORDERED: Acetaminophen 650 MG/20.3 ML UDCUP PER TUBE PRN (15:03)
[2018-12-04] MEDS: Sodium Chloride 0.9% 1,000 ML IV SCH (18:54)
[2018-12-04] MEDS: Clindamycin/D5W 900 MG in Premix Bag 1 BAG IVPB SCH ×2 (18:55→23:53)
--- NOTE | 2018-12-04 19:41 | OP ---
DATE OF PROCEDURE: 12/04/2018 PREOPERATIVE DIAGNOSES: Hydrocephalus with placement of new ventriculoperitoneal shunt by Dr. Ted Jeong, status post history of subarachnoid bleed and previous ventriculoperitoneal shunt was malfunctioned. POSTOPERATIVE DIAGNOSIS: Hydrocephalus with placement of new ventriculoperitoneal shunt by Dr. Ted Jeong, status post history of subarachnoid bleed and previous ventriculoperitoneal shunt was malfunctioned. PROCEDURE PERFORMED: Laparoscopic placement of peritoneal portion of the ventriculoperitoneal shunt (Dr. Ted Jeong placed a new ventriculoperitoneal shunt catheter and brought out the catheter through the right subxiphoid area where I assume care and placement). ANESTHESIA: General anesthesia, local of 0.5% Marcaine with epinephrine 30 mL. DESCRIPTION OF PROCEDURE: The patient was taken to the operating room, where Dr. Ted Jeong first established a new SILK OPENER shunt, tunneled it, and the abdomen had been prepared with ChloraPrep and draped in routine fashion. Ioban was used. SILK OPENER shunt exited the subcutaneous tissue in the right subxiphoid incision and infraumbilical incision. The patient had a feeding gastrostomy tube in the left upper quadrant, which was sequestered during the prep. Infraumbilical incision made, pneumoperitoneum to 15 mmHg obtained with a Veress needle, replaced with a 5 port. I then placed a videolaparoscope in, and she did have some adhesions in the right upper quadrant. These were negotiated with the laparoscope, and adhesion free area was appreciated in the right lateral mid abdomen, where a 5-mm port was placed. Laparoscopic cold scissors used to take down filmy adhesions in the right upper quadrant. We identified the old SILK OPENER shunt which was encased in omentum, and this was freed and placed in the pelvis. #5 port was placed through the subxiphoid incision and visualized laparoscopically, and a grasping instrument placed through the right lower quadrant port in and directed up into the subxiphoid port where the port was removed, and the catheter grasped with a grasper and brought into the abdominal cavity and positioned into the pelvis. Good hemostasis noted. Pneumoperitoneum reduced. All instruments were removed. All skin incisions were approximated with interrupted subdermal 4-0 Monocryl and [place] glue applied. Job ID: [id number]
--- NOTE | 2018-12-04 19:48 | OP ---
DATE OF PROCEDURE: 12/04/2018 VEGETABLE II FARMWORKER: Cleveland Davila PA-C INDICATION: Hydrocephalus. PROCEDURE PERFORMED: Placement of ventriculoperitoneal shunt. ANESTHESIA: General. DESCRIPTION OF PROCEDURE: The patient was brought into the operating room and placed under general anesthesia. She was placed on table in a supine position, and her head was turned to the right. A curvilinear incision was planned along the right occiput as well as a single incision along the subxiphoid area. After an appropriate operative pause and prepping and draping, the curvilinear incision along the left occiput was performed. Hemostasis was maintained. A rod hole was placed in the occipital bone. A shunt passer was placed from the occipital incision to a subxiphoid area and brought out through a separate puncture site. A peritoneal tube was passed. A ventricular catheter was then passed into the ventricular system via the occipital rod hole where there was immediate egress of clear spinal fluid. This was connected to the shunt snap assembly, which was programed to 1.0. The cranial incision was irrigated. Hemostasis was maintained. There was closed in anatomic layers, and a pressure dressing was applied. Dr. Caleb Robledo was responsible for peritoneal placement of the catheter via laparoscopic approach. This will be dictated in a separate note by him. Job ID: [id number]
[2018-12-04] MEDS ORDERED: Amlodipine 5 MG TAB PER TUBE SCH (21:00)
[2018-12-04] MEDS: Metoprolol Tartrate 25 MG TAB PER TUBE SCH (21:05)
[2018-12-04] MEDS: Glycopyrrolate 1 MG TAB PER TUBE SCH (21:05)
[2018-12-04] MEDS: Nystatin Powder 15 GM BOT TOP SCH (21:06)
[2018-12-05] MEDS: Clindamycin/D5W 900 MG in Premix Bag 1 BAG IVPB SCH ×2 (05:29→13:16)
[2018-12-05] MEDS: Sodium Chloride 0.9% 1,000 ML IV SCH (05:31)
[2018-12-05] MEDS ORDERED: Dextrose 5% in Water 1,000 ML IV PRN (05:35)
[2018-12-05] MEDS ORDERED: Dextrose 50% Abboject 50 ML SYRINGE SLOW IVP PRN (05:35)
[2018-12-05] MEDS ORDERED: HumaLOG 300 UNITS/3 ML VIAL SC PRN ×2 (05:35)
--- NOTE | 2018-12-05 05:38 | PDOC.HOSPP ---
- Subjective Encounter Date: 12/05/18 Encounter Time: 05:00 non-verbal Subjective: awakens to touch, is non verbal not in distress - Objective Vital Signs & Weight: Vital Signs (12 hours) Temp Pulse Resp BP BP Pulse Ox 12/05/18 04:00 98.4 F 100 16 120/84 96 12/05/18 00:00 97.6 F 102 H 16 121/83 99 12/04/18 21:05 120 H 138/84 12/04/18 20:15 98 12/04/18 18:55 120 H 20 138/88 12/04/18 18:25 120 H 20 125/86 12/04/18 17:55 97.6 F 117 H 16 137/84 96 Weight Weight 178 lb Hospitalist ROS - Medication Medications: Active Medications Generic Name Dose Route Start Last Admin Trade Name Freq PRN Reason Stop Dose Admin Amlodipine Besylate 5 mg 12/04/18 21:00 12/04/18 21:05 Norvasc PER TUBE 5 mg HS ALAN Administration Glycopyrrolate 1 mg 12/04/18 21:00 12/04/18 21:05 Robinul PER TUBE 1 mg BID ALAN Administration Clindamycin Phosphate/Dextrose 50 mls @ 100 mls/hr 12/04/18 18:00 12/05/18 05 :29 900 mg/ Device IVPB 12/05/18 18:29 50 mls Q6HR ALAN Administration Sodium Chloride 1,000 mls @ 75 mls/hr 12/04/18 15:00 12/05/18 05:31 Normal Saline 0.9% IV Not Given .[id number] ALAN Metoprolol Tartrate 25 mg 12/04/18 21:00 12/04/18 21:05 Lopressor PER TUBE 25 mg BID ALAN Administration Nystatin 0 gm 12/04/18 21:00 12/04/18 21:06 Mycostatin Powder TOP 1 applic BID ALAN Administration - Exam Eye: PERRL, anicteric sclera ENT: no oropharyngeal lesions, moist mucosa Neck: supple, no JVD Heart: no murmur, no gallops Respiratory: no wheezes, no rales Gastrointestinal: soft, non-distended, normal bowel sounds Gastrointestinal - other findings: peg+ Extremities: no cyanosis, no edema Neurological: hemiplegia Neurological - other findings: left Hosp A/P (1) Hydrocephalus Code(s): G91.9 - HYDROCEPHALUS, UNSPECIFIED Status: Acute Qualifiers: Hydrocephalus type: obstructive Qualified Code(s): G91.1 - Obstructive hydrocephalus (2) Asthma Code(s): J45.909 - UNSPECIFIED ASTHMA, UNCOMPLICATED Status: Chronic Qualifiers: Asthma severity: mild Asthma persistence: intermittent Asthma complication type: uncomplicated Qualified Code(s): J45.20 - Mild intermittent asthma, uncomplicated (3) Chronic anemia Code(s): D64.9 - ANEMIA, UNSPECIFIED Status: Chronic (4) GERD (gastroesophageal reflux disease) Code(s): K21.9 - GASTRO-ESOPHAGEAL REFLUX DISEASE WITHOUT ESOPHAGITIS Status: Chronic Qualifiers: (5) HTN (hypertension) Code(s): I10 - ESSENTIAL (PRIMARY) HYPERTENSION Status: Chronic Qualifiers: Hypertension type: essential hypertension Qualified Code(s): I10 - Essential (primary) hypertension (6) ICH (intracerebral hemorrhage) Code(s): I61.9 - NONTRAUMATIC INTRACEREBRAL HEMORRHAGE, UNSPECIFIED Status: Chronic Qualifiers: Encounter type: sequela Laterality: right (7) Seizure disorder Code(s): G40.909 - EPILEPSY, UNSP, NOT INTRACTABLE, WITHOUT STATUS EPILEPTICUS Status: Chronic (8) DM2 (diabetes mellitus, type 2) Status: Chronic Qualifiers: Diabetes mellitus group home insulin use: with 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 post op on clindamycin, morphine prn, gentle iv hydration continue lopressor, norvasc, protonix via peg is npo per surg adv h/o hemorrhagic cva with intracranial bleed in right frontal and temporal area, left hemiplegia, prior craniectomy to relieve pressure and evacuation of clot and peg. will f/u
[2018-12-05] MEDS ORDERED: FLU VACC QS2019-20(6MOS UP)/PF 60 MCG/0.5 ML SYRINGE IM ONE (09:00)
[2018-12-05] MEDS ORDERED: Multivitamin W/ Minerals 1 TAB PER TUBE SCH (09:00)
[2018-12-05] MEDS ORDERED: LACTOSE REDUCED FOOD PO SCH (09:00)
[2018-12-05] MEDS ORDERED: Pantoprazole 40 MG GRANULES PACKET PER TUBE SCH (09:00)
[2018-12-05] MEDS ORDERED: FIBER PO SCH (09:00)
[2018-12-05] MEDS ORDERED: [UNRECOGNIZED DRUG - OTHER] PO SCH (09:00)
[2018-12-05] MEDS: Metoprolol Tartrate 25 MG TAB PER TUBE SCH (09:17)
[2018-12-05] MEDS: Glycopyrrolate 1 MG TAB PER TUBE SCH (09:18)
[2018-12-05] MEDS: Nystatin Powder 15 GM BOT TOP SCH (09:22)
[2018-12-05 12:23] VITALS: TEMP 97.6
[2018-12-05 15:31] VITALS: BMI 32.5
[2018-12-05 17:27] VITALS: BP 115/79
== END 2018-12-05 18:35 | DRG 32 ==
LOC: SURG A 08:42 → SURG B 18:04
PROVIDERS: ADMIT Neurological Surgery; ATTEND Neurological Surgery
PROC: 00164J6 Bypass Cerebral Ventricle to Peritoneal Cavity with Synthetic Substitute, Percutaneous Endoscopic Approach (ICD-10-PCS; principal; 2018-12-04)
DX: G91.1 Obstructive hydrocephalus (principal); I69.154 Hemiplegia and hemiparesis following nontraumatic intracerebral hemorrhage affecting left non-dominant side; G91.9 Hydrocephalus, unspecified; E11.9 Type 2 diabetes mellitus without complications; J45.909 Unspecified asthma, uncomplicated; D64.9 Anemia, unspecified; K21.9 Gastro-esophageal reflux disease without esophagitis; I10 Essential (primary) hypertension; G40.909 Epilepsy, unspecified, not intractable, without status epilepticus; E66.9 Obesity, unspecified; Z88.5 Allergy status to narcotic agent; Z88.0 Allergy status to penicillin; Z88.8 Allergy status to other drugs, medicaments and biological substances; Z68.32 Body mass index [BMI] 32.0-32.9, adult
CPT/HCPCS: 36416; 90471; 90686; G0008; J2001; J3010; J3490

== ENCOUNTER 2018-12-17 02:07 | Inpatient (IN) | payer MEDICARE, MEDICAID ==
[2018-12-17 03:11] LABS: #Basophils 0.1 thou/uL (0.0-0.2); #Eosinphils 0.1 thou/uL (0.0-0.7); #Lymphocytes 2.8 thou/uL (1.20-3.40); #Monocytes 0.6 thou/uL (0.11-0.59); #Neutrophils 7.9 thou/uL (1.40-6.50); %Basophils 0.5 % (0.0-1.0); %Eosinophils 1.1 % (0.0-10.0); %Lymphocytes 24.7 % (21.0-51.0); %Monocytes 4.9 % (0.0-10.0); %Neutrophils 68.8 % (42.0-75.0); Hemoglobin 11.9 g/dL (12.0-16.0); Mean Corpuscular HGB CONC 32.4 g/dL (32.0-36.0); Mean Corpuscular Hemoglobin 28.6 pg (27.0-31.0); Mean Corpuscular Volume 88.5 fL (78.0-98.0); Mean Platelet Volume 7.5 fL (7.4-10.4); Platelet Count 390 thou/uL (130-400); RBC Distribution Width 13.2 % (11.5-14.5); Red Blood Cell (RBC) Count 4.15 mill/uL (4.20-5.40); White Blood Cell (WBC) Count 11.5 thou/uL (4.8-10.8)
[2018-12-17 03:32] LABS: ALT (SGPT) 22 U/L (8-55); AST (SGOT) 15 U/L (5-34); Albumin 3.6 g/dL (3.5-5.0); Alkaline Phosphatase 132 U/L (40-110); Anion Gap 14 mmol/L (10-20); BUN (Urea Nitrogen) 10 mg/dL (7.0-18.7); Bilirubin, Total 0.3 mg/dL (0.2-1.2); Calc. Creatinine Clearance 0 mL/min (70-130); Calcium 9.6 mg/dL (7.8-10.44); Carbon Dioxide 26 mmol/L (22-29); Chloride 100 mmol/L (98-107); Estimated GFR-MDRD Greater than 90; Globulin 4.4 g/dL (2.4-3.5); Glucose 120 mg/dL (70-105); Potassium 4.5 mmol/L (3.5-5.1); Sodium 135 mmol/L (136-145)
[2018-12-17] MEDS: Linezolid 600 MG in Premix Bag 1 BAG IVPB SCH ×2 (09:53→16:31)
[2018-12-17] MEDS ORDERED: FLU VACC QS2019-20(6MOS UP)/PF 60 MCG/0.5 ML SYRINGE IM ONE (10:30)
[2018-12-17] MEDS ORDERED: Bisacodyl 10 MG SUPP PR PRN (11:40)
[2018-12-17] MEDS ORDERED: cloNIDine 0.1 MG TAB PER TUBE PRN (11:40)
[2018-12-17] MEDS ORDERED: hydrOXYzine 10 MG/5 ML UDCUP PER TUBE PRN (11:40)
[2018-12-17] MEDS ORDERED: Acetaminophen 650 MG/20.3 ML UDCUP PER TUBE PRN (11:40)
[2018-12-17] MEDS ORDERED: Insulin Regular 300 UNITS/3 ML VIAL SC PRN (11:40)
[2018-12-17] MEDS ORDERED: Acetaminophen 325 MG TAB PO PRN (11:46)
[2018-12-17] MEDS ORDERED: Loperamide HCl 2 MG CAP PO PRN (11:46)
[2018-12-17] MEDS ORDERED: HYDROcodone/Acetaminophen 5/325 mg Tablet PO PRN (11:46)
[2018-12-17] MEDS ORDERED: Bisacodyl 5 MG TAB PO PRN (11:46)
[2018-12-17] MEDS ORDERED: Ondansetron ODT 4 MG TAB PO PRN (11:46)
[2018-12-17] MEDS ORDERED: Ondansetron PF 4 MG/2 ML Vial IVP PRN (11:46)
[2018-12-17] MEDS: Erythromycin Base 0.5% Oint 1 GM TUBE R EYE SCH ×3 (14:44→20:32)
--- NOTE | 2018-12-17 16:32 | HP ---
CHIEF COMPLAINT: Blood cultures positive with gram-positive cocci. HISTORY OF PRESENTING ILLNESS: The patient is nonverbal. History is by evaluating the chart and also speaking to the ER physician. This is a 48-year-old female with a history of hemorrhagic CVA status post craniectomy and HIGH ENERGY FORMING EQUIPMENT OPERATOR shunt placement for hydrocephalus, was sent to the ER by [facility] due to positive blood cultures with 2 out of 4 blood cultures being positive for gram-positive cocci. These cultures were drawn at [facility] earlier yesterday. As per the care home note, the patient was acting more agitated than usual and was sent to the ED for evaluation. She was diagnosed with a UTI and was given IV Rocephin and was discharged with oral meds. Later AL was called with results of blood culture, 2 out of 4 was positive with Gram Positive Cocci. The patient was then sent to [facility] ED for further evaluation and admission for treatment of bacteremia. PAST MEDICAL HISTORY: 1. History of hemorrhagic stroke in the right globus pallidus/right putamen and right rancho. 2. History of diabetes. 3. Reflux disease. 4. Hypertension. 5. Asthma. 6. Epilepsy. SURGICAL HISTORY: Significant for; 1. Right temporal hemicraniectomy with duraplasty. 2. Endovascular repair of right MCA bifurcation aneurysm. 3. ORIF of right ankle. 4. Cholecystectomy. 5. Trach placement, which was removed by the patient. 6. PEG placement. PSYCHIATRIC HISTORY: 1. Anxiety. 2. Bipolar disorder. 3. Depression. SOCIAL HISTORY: There is no history of alcohol or drug use. ALLERGIES: THE PATIENT IS ALLERGIC TO CODEINE, SULFATE, LEVAQUIN, VANCOMYCIN, AND ZOSYN. REVIEW OF SYSTEMS: Cannot be obtained as the patient is nonverbal and not responding to any verbal stimuli. PHYSICAL EXAMINATION: VITAL SIGNS: Blood pressure 132/92, pulse 98, respiratory rate 20, temperature 100, and O2 saturation on room air is 99%. CONSTITUTIONAL: The patient is awake, but not alert, nonverbal, and does not look like she has any discomfort. HEAD: Adelia are still intact on the left skull with mild edema over the right skull. EYES: Eyelids are normal to inspection. Pupils are equal, round, and reactive to light. Conjunctivae are normal. ENT: Ear examination is within normal limits. External ears are normal. Nose examination is normal. Mucous membranes are dry. NECK: Finding of normal range of motion, scar in the neck due to the previous trach placement. RESPIRATORY: No respiratory distress. Breathing normally. CARDIOVASCULAR: Within normal limit with regular rate and rhythm. No murmurs, no gallops. ABDOMEN: Soft, nontender, plus PEG tube in the left upper quadrant. EXTREMITIES: Upper extremities; contracture of right upper extremity. Lower extremities; inspection is within normal limits, no edema. LABORATORY DATA: Please follow up with the urine culture results, that was obtained outside of this hospital. ASSESSMENT AND PLAN: 1. Urinary tract infection with bacteremia with gram-positive cocci. Final culture result needs to be followed up with medical facility outside of this hospital. 2. Continue the percutaneous endoscopic gastrostomy feeds. 3. Continue all her home medications. 4. Consult NS and ID Job ID: [id number] [facility]
[2018-12-17] MEDS: Glycopyrrolate 1 MG TAB PER TUBE SCH (20:31)
[2018-12-17] MEDS: Heparin 5,000 UNITS/ML VIAL SC SCH (20:31)
[2018-12-17] MEDS: Metoprolol Tartrate 25 MG TAB PER TUBE SCH (20:31)
[2018-12-17] MEDS: Amlodipine 5 MG TAB PER TUBE SCH (20:31)
[2018-12-17] MEDS: Nystatin Powder 15 GM BOT TOP SCH (20:32)
[2018-12-18] MEDS: Linezolid 600 MG in Premix Bag 1 BAG IVPB SCH ×2 (04:24→15:28)
[2018-12-18 07:05] LABS: #Eosinphils 0.1 thou/uL (0.0-0.7); #Lymphocytes 2.1 thou/uL (1.20-3.40); #Monocytes 0.5 thou/uL (0.11-0.59); #Neutrophils 5.7 thou/uL (1.40-6.50); %Basophils 0.5 % (0.0-1.0); %Eosinophils 1.6 % (0.0-10.0); %Lymphocytes 24.9 % (21.0-51.0); %Monocytes 6.1 % (0.0-10.0); %Neutrophils 66.9 % (42.0-75.0); Hemoglobin 10.6 g/dL (12.0-16.0); Mean Corpuscular HGB CONC 32.7 g/dL (32.0-36.0); Mean Corpuscular Hemoglobin 28.9 pg (27.0-31.0); Mean Corpuscular Volume 88.3 fL (78.0-98.0); Mean Platelet Volume 7.7 fL (7.4-10.4); Platelet Count 429 thou/uL (130-400); Red Blood Cell (RBC) Count 3.67 mill/uL (4.20-5.40); White Blood Cell (WBC) Count 8.5 thou/uL (4.8-10.8)
[2018-12-18 07:33] LABS: Anion Gap 13 mmol/L (10-20); BUN (Urea Nitrogen) 10 mg/dL (7.0-18.7); Calc. Creatinine Clearance 136 mL/min (70-130); Calcium 9.3 mg/dL (7.8-10.44); Carbon Dioxide 26 mmol/L (22-29); Chloride 101 mmol/L (98-107); Estimated GFR-MDRD Greater than 90; Glucose 186 mg/dL (70-105); Potassium 3.8 mmol/L (3.5-5.1); Sodium 136 mmol/L (136-145)
[2018-12-18] MEDS: Glycopyrrolate 1 MG TAB PER TUBE SCH ×2 (08:15→21:20)
[2018-12-18] MEDS: Pantoprazole 40 MG GRANULES PACKET PER TUBE SCH (08:15)
[2018-12-18] MEDS: Nystatin Powder 15 GM BOT TOP SCH ×2 (08:15→21:21)
[2018-12-18] MEDS: Heparin 5,000 UNITS/ML VIAL SC SCH ×2 (08:15→21:21)
[2018-12-18] MEDS: Metoprolol Tartrate 25 MG TAB PER TUBE SCH ×2 (08:15→21:20)
[2018-12-18] MEDS: Erythromycin Base 0.5% Oint 1 GM TUBE R EYE SCH ×4 (08:16→21:21)
[2018-12-18] MEDS: Terbinafine 1% 30 GM TUBE TOP SCH (08:16)
[2018-12-18] MEDS ORDERED: Multivitamin W/ Minerals 1 TAB PER TUBE SCH (09:00)
[2018-12-18 16:50] VITALS: BMI 27.1
[2018-12-18 17:10] LABS: Bacteria/HPF 2+ HPF (None Seen); Bilirubin Negative (Negative); Blood, Urine Trace (Negative); Clarity Turbid (Clear); Glucose, Urine (Dipstick) Normal (Negative); Leukocyte 500 Leu/uL (Negative); Nitrite Negative (Negative); Protein, Urine (Dipstick) Negative (Neg-Trace); RBC/HPF 0-3 HPF (0-3); Squamous Epithelial 0-3 HPF (0-3); Urobilinogen 3 mg/dL (Less than 2); WBC/HPF 0-3 HPF (0-3)
[2018-12-18 17:16] LABS: Urine Culture Reflex Yes Yes
--- NOTE | 2018-12-18 17:24 | PRG ---
DATE OF SERVICE: 12/18/2018 Ms. Norwood is now 2 weeks postop left-sided APPLICATIONS PROCESSOR shunt placement and revision, and is admitted for bacteremia with unknown source. This does not appear related to the surgery and her left occipital wound looks excellent. It is well-approximated, is non-erythematous, non-edematous, and there is no drainage. She does have hetal . We will go ahead and remove these. From neurosurgery standpoint, she is safe to be discharged back to the shelter whenever the primary team deems appropriate and will need to follow up with her in a month. Job ID: [id number]
--- NOTE | 2018-12-18 18:11 | PDOC.HOSPP ---
- Subjective Encounter Date: 12/18/18 Encounter Time: 07:25 Subjective: non verbal, does not follow verbal stimuli, eyes closed, not in distress, right lat neck flexion contracture - Objective Vital Signs & Weight: Vital Signs (12 hours) Temp Pulse Resp BP Pulse Ox 12/18/18 08:00 100 12/18/18 07:28 97.9 F 99 20 119/83 100 Weight Admit Weight 153 lb 9 oz Weight 153 lb 9 oz Result Diagrams: 12/18/18 06:20 12/18/18 06:20 Additional Labs: Accuchecks 12/18/18 12/18/18 12/18/18 16:11 11:12 05:32 POC Glucose 135 H 99 193 H 12/17/18 12/17/18 12/17/18 19:37 18:20 15:48 POC Glucose 123 H 145 H 110 12/17/18 12:02 POC Glucose 109 Hospitalist ROS - Medication Medications: Active Medications Generic Name Dose Route Start Last Admin Trade Name Freq PRN Reason Stop Dose Admin Amlodipine Besylate 5 mg 12/17/18 21:00 12/17/18 20:31 Norvasc PER TUBE 5 mg HS ALNA Administration Erythromycin 0 gm 12/17/18 13:00 12/18/18 16:13 Erythromycin Base 0.5% Oint R EYE 1 applic QID ALAN Administration Glycopyrrolate 1 mg 12/17/18 21:00 12/18/18 08:15 Robinul PER TUBE 1 mg BID ALAN Administration Heparin Sodium (Porcine) 5,000 units 12/17/18 21:00 12/18/18 08:15 Heparin SC 5,000 units BID ALAN Administration Iron/Minerals/Multivitamins 100 tab 12/18/18 09:00 12/18/18 08:21 Theragran M PER TUBE 100 tab DAILY ALAN Administration Metoprolol Tartrate 25 mg 12/17/18 21:00 12/18/18 08:15 Lopressor PER TUBE 25 mg BID ALAN Administration Nystatin 0 gm 12/17/18 21:00 12/18/18 08:15 Mycostatin Powder TOP 1 applic BID ALAN Administration Pantoprazole Sodium 40 mg 12/18/18 09:00 12/18/18 08:15 Protonix PER TUBE 40 mg DAILY ALAN Administration Sodium Chloride 10 ml 12/17/18 21:00 12/18/18 08:17 Flush - Normal Saline IVF 10 ml Q12HR ALAN Administration Terbinafine HCl 0 gm 12/18/18 09:00 12/18/18 08:16 Lamisil 1% Cream TOP 1 applic DAILY ALAN Administration - Exam Eye: anicteric sclera ENT: no oropharyngeal lesions, dry oral mucosa Neck: no JVD, no lymphadenopathy Heart: RRR, no murmur Respiratory: no wheezes, no rales Gastrointestinal: soft, non-tender, non-distended, normal bowel sounds Gastrointestinal - other findings: peg+ Extremities: no edema Neurological: hemiplegia Psychiatric: not oriented Hosp A/P (1) Bacteremia Code(s): R78.81 - BACTEREMIA Status: Acute (2) Asthma Code(s): J45.909 - UNSPECIFIED ASTHMA, UNCOMPLICATED Status: Chronic Qualifiers: Asthma severity: mild Asthma persistence: intermittent Asthma complication type: uncomplicated Qualified Code(s): J45.20 - Mild intermittent asthma, uncomplicated (3) Chronic anemia Code(s): D64.9 - ANEMIA, UNSPECIFIED Status: Chronic (4) DM2 (diabetes mellitus, type 2) Status: Chronic Qualifiers: Diabetes mellitus mcfp insulin use: 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 (5) Encephalopathy Code(s): G93.40 - ENCEPHALOPATHY, UNSPECIFIED Status: Chronic (6) GERD (gastroesophageal reflux disease) Code(s): K21.9 - GASTRO-ESOPHAGEAL REFLUX DISEASE WITHOUT ESOPHAGITIS Status: Chronic Qualifiers: (7) HTN (hypertension) Code(s): I10 - ESSENTIAL (PRIMARY) HYPERTENSION Status: Chronic Qualifiers: Hypertension type: essential hypertension Qualified Code(s): I10 - Essential (primary) hypertension (8) ICH (intracerebral hemorrhage) Code(s): I61.9 - NONTRAUMATIC INTRACEREBRAL HEMORRHAGE, UNSPECIFIED Status: Chronic Qualifiers: Encounter type: sequela Laterality: right (9) Seizure disorder Code(s): G40.909 - EPILEPSY, UNSP, NOT INTRACTABLE, WITHOUT STATUS EPILEPTICUS Status: Chronic - Plan pt has static chronic encephalopathy, nonverbal, not oriented at baseline, is bed bound was tx from [facility] for bacteremia with gm +ve cocci, await culture results from [facility]? consult Dr.Lemos saldana has been dc'd continue peg feeding, norvasc, lopressor, protonix, iron, mild humalog coverage q6h Palliative care consultation for goals of care, poor prognosis.
--- NOTE | 2018-12-18 18:28 | CON ---
DATE OF CONSULTATION: 12/18/2018 REASON FOR CONSULTATION: Positive blood cultures. 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 I guess there was another piece of evidence that was of concern with the nursing staff, which was the character of her urine, which was a kind of milky. She was then sent for admission and the initial findings included a BP 130/92, pulse 98, respirations 20, temperature 100, O2 saturations 99. The exam showed no evidence of skin breakdown. She recently had a MENDER HAND shunt placed in the left side and the surgical area had healed without any problems. Her GCS was 9, which is her baseline. Initial laboratory results included white cell count 11.5 and then 8.5, hemoglobin 11.9, platelets 390 and then 429, with a normal differential. Sodium 135, creatinine 0.51. Lactic acid 1.5. Transaminases normal. Alkaline phosphatase 132, albumin 3.6, globulin 4.4. We do not have a urinalysis from this admission yet, and cultures with alpha-hemolytic Streptococcus in 1 out of 2 sets of blood cultures. This appears to have been a phlebotomy stick in one of the upper extremities. Currently, Ms. Norwood opens her eyes spontaneously, but does not interact with the examiner. The surgical site for the MENDER HAND shunt has healed. She has a peripheral IV access. No skin areas of breakdown noted, and voiding in the diaper. No lymphadenopathy. She has a right-sided gaze preference, but no nystagmus. Her mouth deviates to the left. She does not have enough cognitive function to follow commands. Lungs are symmetric with clear breath sounds. S1 and S2, regular rate. Abdomen is not distended and there is no evidence of guarding. She has contractures in all 4 extremities. She is flaccid in the lower extremities. She seems to be awake, but does not interact with the examiner. She keeps her eyes open. The white cell count now is 8.5, hemoglobin 10.6, platelets are 429. PAST MEDICAL HISTORY: Intracranial hemorrhage; craniectomy; diabetes type 2; MENDER HAND shunt; aspiration pneumonia; UTIs; Dilantin associated hypersensitivity reaction; pulmonary embolism; adenoviral pneumonia; chronic indwelling Ortega catheter, which has been removed since recently; and a second MENDER HAND shunt placed on the left side. PAST SURGICAL HISTORY: Includes cholecystectomy, PEG tube placement, repair of brain aneurysm, craniectomy site bone flap repair and replacement. ALLERGIES: SULFA DRUGS, CODEINE, VANCOMYCIN, ZOSYN. FAMILY HISTORY: Noncontributory. SOCIAL HISTORY: longterm resident. Never smoker. CURRENT MEDICATIONS: 1. Tylenol. 2. [place]. 3. Norvasc. 4. Dulcolax. 5. Catapres. 6. Erythromycin. 7. Glycopyrrolate. 8. Hydroxyzine. 9. Linezolid. PHYSICAL EXAMINATION: VITAL SIGNS: She had a T-max of 98.4, BP 119/83, pulse 99, respirations 20, O2 saturation 100. SKIN: Without areas of skin breakdown. The remainder of the exam as noted above and the laboratory data as well. ASSESSMENT: Intracranial hemorrhage with MENDER HAND shunts placed, and abnormal urine appearance, recently removed Ortega catheter, bacteremia. DISCUSSION: The Streptococcus bacteremia is in only one set out of 2 and this more likely represents contamination of the sample rather than true bacteremia in view of the findings and the clinical exam. I would advise withholding antimicrobial therapy at this point in time, monitoring the blood culture sets until final results. If the 2nd continues to remain negative, then I would call it a contaminant and not treat it. We will request a sample of urine for testing and we will check a postvoid residual and obtain a chest x-ray for completeness sake. It does not appear that has been done just yet. Job ID: [id number]
[2018-12-18] MEDS: Amlodipine 5 MG TAB PER TUBE SCH (21:20)
[2018-12-19] MEDS: Glycopyrrolate 1 MG TAB PER TUBE SCH ×2 (09:02→21:10)
[2018-12-19] MEDS: Erythromycin Base 0.5% Oint 1 GM TUBE R EYE SCH ×4 (09:02→21:10)
[2018-12-19] MEDS: Pantoprazole 40 MG GRANULES PACKET PER TUBE SCH (09:02)
[2018-12-19] MEDS: Metoprolol Tartrate 25 MG TAB PER TUBE SCH ×2 (09:02→21:10)
[2018-12-19] MEDS: Nystatin Powder 15 GM BOT TOP SCH ×2 (09:02→21:09)
[2018-12-19] MEDS: Heparin 5,000 UNITS/ML VIAL SC SCH ×2 (09:02→21:10)
[2018-12-19] MEDS: Terbinafine 1% 30 GM TUBE TOP SCH (09:03)
[2018-12-19] MEDS: Multivitamin W/ Minerals 1 TAB PER TUBE SCH (09:12)
--- NOTE | 2018-12-19 09:24 | RAD ---
SINGLE VIEW CHEST: Date: 12/19/18 COMPARISON: 08/23/18. HISTORY: Pulmonary infiltrates. FINDINGS: Single view of the chest shows normal sized cardiomediastinal silhouette. There is no evidence of con solidation, mass, or pleural effusion. Catheters projecting over the chest wall may represent SUPERVISOR LONG GOODS shun ts. IMPRESSION: No evidence of acute cardiopulmonary disease. POS: CET
--- NOTE | 2018-12-19 12:04 | PDOC.HOSPP ---
- Subjective Encounter Date: 12/19/18 Encounter Time: 10:00 Subjective: awakens but not oriented or follows verbal stimuli is not in distress moves right extremities - Objective Vital Signs & Weight: Vital Signs (12 hours) Temp Pulse Resp BP Pulse Ox 12/19/18 08:00 96 12/19/18 07:26 98.6 F 98 20 126/83 96 Weight Admit Weight 153 lb 9 oz Weight 153 lb 9 oz I&O: 12/18/18 12/19/18 12/20/18 06:59 06:59 06:59 Intake Total 340 Balance 340 Result Diagrams: 12/18/18 06:20 12/18/18 06:20 Additional Labs: Accuchecks 12/19/18 12/18/18 12/18/18 04:26 20:06 16:11 POC Glucose 94 114 H 135 H 12/18/18 11:12 POC Glucose 99 Hospitalist ROS - Medication Medications: Active Medications Generic Name Dose Route Start Last Admin Trade Name Freq PRN Reason Stop Dose Admin Amlodipine Besylate 5 mg 12/17/18 21:00 12/18/18 21:20 Norvasc PER TUBE 5 mg HS ALAN Administration Erythromycin 0 gm 12/17/18 13:00 12/19/18 09:02 Erythromycin Base 0.5% Oint R EYE 1 applic QID ALAN Administration Glycopyrrolate 1 mg 12/17/18 21:00 12/19/18 09:02 Robinul PER TUBE 1 mg BID ALAN Administration Heparin Sodium (Porcine) 5,000 units 12/17/18 21:00 12/19/18 09:02 Heparin SC 5,000 units BID ALAN Administration Iron/Minerals/Multivitamins 1 tab 12/19/18 09:00 12/19/18 09:12 Theragran M PER TUBE 1 tab DAILY ALAN Administration Metoprolol Tartrate 25 mg 12/17/18 21:00 12/19/18 09:02 Lopressor PER TUBE 25 mg BID ALAN Administration Nystatin 0 gm 12/17/18 21:00 12/19/18 09:02 Mycostatin Powder TOP 1 applic BID ALAN Administration Pantoprazole Sodium 40 mg 12/18/18 09:00 12/19/18 09:02 Protonix PER TUBE 40 mg DAILY ALAN Administration Sodium Chloride 10 ml 12/17/18 21:00 12/19/18 09:12 Flush - Normal Saline IVF 10 ml Q12HR ALAN Administration Terbinafine HCl 0 gm 12/18/18 09:00 12/19/18 09:03 Lamisil 1% Cream TOP 1 applic DAILY ALAN Administration - Exam Eye: anicteric sclera ENT: no oropharyngeal lesions, dry oral mucosa Neck: supple, no JVD Heart: RRR, no murmur Respiratory: no wheezes, no rales Gastrointestinal: soft, non-tender, non-distended, normal bowel sounds Extremities: no cyanosis, no edema Neurological: hemiplegia Neurological - other findings: left foot drop Hosp A/P (1) Bacteremia Code(s): R78.81 - BACTEREMIA Status: Suspected (2) Asthma Code(s): J45.909 - UNSPECIFIED ASTHMA, UNCOMPLICATED Status: Chronic Qualifiers: Asthma severity: mild Asthma persistence: intermittent Asthma complication type: uncomplicated Qualified Code(s): J45.20 - Mild intermittent asthma, uncomplicated (3) Chronic anemia Code(s): D64.9 - ANEMIA, UNSPECIFIED Status: Chronic (4) DM2 (diabetes mellitus, type 2) Status: Chronic Qualifiers: Diabetes mellitus retirement insulin use: with chemist inorganic use (5) Encephalopathy Code(s): G93.40 - ENCEPHALOPATHY, UNSPECIFIED Status: Chronic (6) GERD (gastroesophageal reflux disease) Code(s): K21.9 - GASTRO-ESOPHAGEAL REFLUX DISEASE WITHOUT ESOPHAGITIS Status: Chronic Qualifiers: (7) HTN (hypertension) Code(s): I10 - ESSENTIAL (PRIMARY) HYPERTENSION Status: Chronic Qualifiers: Hypertension type: essential hypertension Qualified Code(s): I10 - Essential (primary) hypertension (8) ICH (intracerebral hemorrhage) Code(s): I61.9 - NONTRAUMATIC INTRACEREBRAL HEMORRHAGE, UNSPECIFIED Status: Chronic Qualifiers: Encounter type: sequela Laterality: right (9) Seizure disorder Code(s): G40.909 - EPILEPSY, UNSP, NOT INTRACTABLE, WITHOUT STATUS EPILEPTICUS Status: Chronic - Plan pt has static chronic encephalopathy, nonverbal, not oriented at baseline, is bed bound was tx from [facility] for bacteremia with gm +ve cocci, [facility]? off zyvox, repeat cultures are pending, cxr shows no infiltrate continue peg feeding, norvasc, lopressor, protonix, iron, mild humalog coverage q6h Palliative care consultation for goals of care, poor prognosis. If cultures are -ve may dc back to snf, echo to r/o vegetations if any.
[2018-12-19] MEDS ORDERED: Dextrose 5% in Water 1,000 ML IV PRN (15:27)
[2018-12-19] MEDS ORDERED: Dextrose 50% Abboject 50 ML SYRINGE IVP PRN (15:27)
[2018-12-19] MEDS ORDERED: HumaLOG 300 UNITS/3 ML VIAL SC PRN (15:27)
[2018-12-19] MEDS: [UNRECOGNIZED DRUG - OTHER] PO SCH ×2 (16:13→16:14)
[2018-12-19] MEDS: FIBER PO SCH ×2 (16:13→16:14)
[2018-12-19] MEDS: LACTOSE REDUCED FOOD PO SCH ×2 (16:13→16:14)
[2018-12-19] MEDS: Amlodipine 5 MG TAB PER TUBE SCH (21:10)
[2018-12-20 05:47] VITALS: TEMP 98.3
[2018-12-20 07:28] VITALS: BP 137/74
[2018-12-20] MEDS: Multivitamin W/ Minerals 1 TAB PER TUBE SCH (08:14)
[2018-12-20] MEDS: Nystatin Powder 15 GM BOT TOP SCH (08:14)
[2018-12-20] MEDS: Glycopyrrolate 1 MG TAB PER TUBE SCH (08:14)
[2018-12-20] MEDS: Metoprolol Tartrate 25 MG TAB PER TUBE SCH (08:14)
[2018-12-20] MEDS: Erythromycin Base 0.5% Oint 1 GM TUBE R EYE SCH ×2 (08:14→13:37)
[2018-12-20] MEDS: Terbinafine 1% 30 GM TUBE TOP SCH (08:15)
[2018-12-20] MEDS: Pantoprazole 40 MG GRANULES PACKET PER TUBE SCH (08:15)
[2018-12-20] MEDS: Heparin 5,000 UNITS/ML VIAL SC SCH (08:15)
--- NOTE | 2018-12-20 12:00 | PDOC.PALCO ---
Palliative Care Consult - Consult Details Requesting Physician: Dr Rehman Reason for Consult: goals of care, advance directives assistance, family support , complex decision-making Family Members Present: Patient aunts, her mothers sisters. One is Zoila ZUNIGA and Lesa - Pertinent HPI 48 year old female who [facility], total max assist for all ADL's. Bed/ZGeri chair bound. non verbal, PEG for nutrition secondary to dysphasia and aspiration risk. Patient had a hemorrhagic CVA and is currently S/ P craniotomy and PROCESS SAFETY ENGINEER shunt placement for hydrocephaly. Patient recently had febrile episode where blood cultures were obtained due to increase in agitation. Patient continued to have increase in agitation, patient was sent to [facility] emergency room where she was diagnosed with a UTI. Admitted for IV abx and medical management. 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, history of diabetes, reflux, HTN, Asthma, Epilepsy, anxiety, bi-polar, depression - Social History Smoking Status: Unknown if ever smoked Smoking: no tobacco exposure Alcohol Use: none Drug Use History: none Living Situation: [facility] - Medications MAR Reviewed: Yes - Allergies Allergies/Adverse Reactions: Allergies Allergy/AdvReac Type Severity Reaction Status Date / Time piperacillin [From Zosyn] Allergy Severe Rash Verified 08/05/18 18:46 tazobactam [From Zosyn] Allergy Severe Rash Verified 08/05/18 18:46 vancomycin Allergy Severe Short of Verified 08/05/18 18:46 Breath codeine Allergy Verified 08/05/18 18:46 levofloxacin [From Levaquin] Allergy Verified 08/24/18 02:20 - Subjective listing to right, muscle wasting. Withdraws right foot with stimulation. Does not open eyes with stimulation or request. Non verbal. Unable to perform ROS secondary to altered mental state. - Objective Vital Signs: Vital Signs - Most Recent Temp Pulse Resp BP Pulse Ox 98.3 F 99 17 137/74 100 12/20/18 07:23 12/20/18 07:23 12/20/18 07:23 12/20/18 07:23 12/20/18 08:00 Palliative Performance Scale: 20 - Physical Exam Constitutional: NAD Deviation from normal: Chronically ill appearing, HEENT: sclera anicteric Deviation from normal: Poor dentition, Respiratory: clear to auscultation bilateral Deviation from normal: Diminsihed to bases Cardiovascular: irregular Gastrointestinal: soft, non-tender, positive bowel sounds Deviation from normal: PEG Musculoskeletal: pulses present Deviation from normal: Contrctures to hands, foot drop. muscle atrophy Deviation from normal: No purposeful movement, withdraws right foot with stimulation Deviation from normal: Non responsive Skin: cap refill <2 seconds Deviation from normal: Pallor - Problem List (1) Palliative care encounter Code(s): Z51.5 - ENCOUNTER FOR PALLIATIVE CARE Current Visit: Yes Status: Acute (2) Physical deconditioning Code(s): R53.81 - OTHER MALAISE Current Visit: Yes Status: Acute (3) Presence of externally removable percutaneous endoscopic gastrostomy (PEG) tube Code(s): Z93.1 - GASTROSTOMY STATUS Current Visit: No Status: Acute (4) UTI (urinary tract infection) Current Visit: No Status: Acute Qualifiers: Urinary tract infection type: acute cystitis Hematuria presence: without hematuria Qualified Code(s): N30.00 - Acute cystitis without hematuria (5) DM2 (diabetes mellitus, type 2) Current Visit: No Status: Chronic Qualifiers: Diabetes mellitus senior living insulin use: with buttermaker continuous churn use (6) GERD (gastroesophageal reflux disease) Code(s): K21.9 - GASTRO-ESOPHAGEAL REFLUX DISEASE WITHOUT ESOPHAGITIS Current Visit: No Status: Chronic Qualifiers: (7) Hx of aneurysm Code(s): Z86.79 - PERSONAL HISTORY OF OTHER DISEASES OF THE CIRCULATORY SYSTEM Current Visit: No Status: Chronic - Plan/Recommendations Plan: Patient aunts gave history of Brigida Norwood prior to CVA. Discussed at length debilitating event and course of events for Ms Norwood over past year. Frustrated at care at facilities. *Discussed Trajectory of current health status and possibility of recurrent infections and decline *Discussed resuscitation status, presented option of chemical resuscitation measures only. Aunt asked that it be presented to patient daughter *Discussed creating a list of questions and desired care for facilities to give insight of family expectations of care and is that in line with what facilities can offer. *Discussed possible hospice care to give an extra layer of support for patient and family. Family open to this and [facility] gave list to patient aunt who is going to call Hospice agencies. Should at any point during the hospital stay they desire to seek an hospice evaluation they will communicate those wishes. *Biotene added to med list to be utilized with oral care bid to improve integrity of oral membranes [90] minutes spent on this encounter with >50% of the time in counseling and coordination of care. Thank you for this very appropriate consult.
[2018-12-20] MEDS ORDERED: BIOTENE MOUTH SPRAY 44.3 ML PO SCH (21:00)
--- NOTE | 2018-12-22 16:25 | DIS ---
DATE OF ADMISSION: 12/17/2018 DATE OF DISCHARGE: 12/20/2018 DISCHARGE DISPOSITION: [facility]. PRIMARY DISCHARGE DIAGNOSIS: Initial suspicion for bacteremia, is ruled out. SECONDARY DISCHARGE DIAGNOSES: Static chronic encephalopathy, history of intracranial hemorrhage with hemiplegia, seizure disorder secondary to above, hypertension, chronic anemia, diabetes mellitus type 2, poor functional status with the patient being bed-bound, gastroesophageal reflux disease, history of asthma. PROCEDURES DONE DURING HOSPITALIZATION: The patient has had chest x-ray done, showed no evidence of acute cardiopulmonary abnormality. One of two blood cultures drawn on the grew alpha-hemolytic Strep and coag-negative Staph, this is assumed to be contaminant. Urine culture grew E coli, Pseudomonas, and nonhemolytic Strep and yeast species, likely contaminant. Blood cultures again obtained on the were negative. White count of 8, hemoglobin and hematocrit are 10 and 32, platelet count 429, MCV 88, with 66% neutrophils. BUN 10, creatinine 0.5, albumin 3.6. INPATIENT CONSULT: Dr. Villegas for Infectious Disease. DISCHARGE MEDICATIONS: 1. Norvasc 5 mg p.o. daily. 2. Clonidine 0.1 mg p.o. q.6 hourly p.r.n. 3. Protonix 40 mg daily. 4. Lopressor 25 mg twice daily. 5. Humalog sliding scale. 6. Multivitamin one tablet daily. ALLERGIES: TO ZOSYN, VANCOMYCIN, CODEINE, AND LEVAQUIN. DISCHARGE PLAN: The patient to follow up with her primary care physician at the [facility], Dr. Montalvo in 1 week BRIEF COURSE DURING HOSPITALIZATION: The patient initially was sent from [facility] for suspected bacteremia. Her cultures from [facility] were obtained from Microbiology Department here, which apparently grew two different varieties of alpha-hemolytic Strep and coag-negative Staph in 1 of 2 bottles. This was presumed to be contaminant. She has had consultation with Dr. Villegas. She remained afebrile and had normal blood work during her stay here. There were no signs or symptoms of sepsis during her stay here. The patient was closely monitored for 72 hours prior to discharge. All her antibiotics were discontinued within 24 hours. The patient has static encephalopathy with history of intracranial hemorrhage and prior neurosurgery with evacuation. She has also had a JEWELRY RACKER shunt, which was revised recently. She has a PEG tube and is getting fed Glucerna through the PEG. She is otherwise hemodynamically stable and will be discharged back to [facility]. A total of 35 minutes was spent on discharge plan. Please note I have seen and examined the patient on the day of discharge. Job ID: [id number] MTDD
== END 2018-12-20 14:47 | DRG 951 ==
LOC: ERS 02:07 → T4-A 03:26
PROVIDERS: ADMIT Family Medicine; ATTEND Family Medicine
DX: Z03.89 Encounter for observation for other suspected diseases and conditions ruled out (principal); G93.49 Other encephalopathy; G81.90 Hemiplegia, unspecified affecting unspecified side; G40.909 Epilepsy, unspecified, not intractable, without status epilepticus; I10 Essential (primary) hypertension; D64.9 Anemia, unspecified; E11.9 Type 2 diabetes mellitus without complications; K21.9 Gastro-esophageal reflux disease without esophagitis; J45.909 Unspecified asthma, uncomplicated; Z51.5 Encounter for palliative care; F31.9 Bipolar disorder, unspecified; Z74.01 Bed confinement status; Z88.1 Allergy status to other antibiotic agents; Z88.8 Allergy status to other drugs, medicaments and biological substances; Z93.1 Gastrostomy status; Z90.49 Acquired absence of other specified parts of digestive tract
CPT/HCPCS: 36415; 36416; 71045; 80048; 80053; 81001; 83605; 85025; 87040; 87086; 93306; 96361; 96365; 96366; J1644; J2020

== ENCOUNTER 2019-01-08 21:14 | Inpatient (IN) | payer MEDICARE, MEDICAID ==
[2019-01-08] MEDS ORDERED: CEFAZOLIN 2 GM in Premix Bag 1 BAG IVPB SCH ×2 (21:45→23:45)
[2019-01-08] MEDS: Sodium Chloride 0.9% 1,000 ML IV SCH (21:45)
[2019-01-08] MEDS ORDERED: Fentanyl 100 MCG/2 ML VIAL SLOW IVP SCH (21:45)
[2019-01-08] MEDS ORDERED: Fentanyl 100 MCG/2 ML VIAL ONE (22:12)
[2019-01-08] MEDS ORDERED: Sodium Chloride 0.9% 10 ML ONE (22:25)
[2019-01-08] MEDS ORDERED: Sodium Chloride 0.9% 30 ML ONE (22:28)
[2019-01-08] MEDS ORDERED: Labetalol HCl 100 MG/20 ML VIAL ONE (22:48)
[2019-01-08 23:32] LABS: #Lymphocytes 1.4 thou/uL (1.20-3.40); #Monocytes 0.4 thou/uL (0.11-0.59); %Basophils 0.1 % (0.0-1.0); %Eosinophils 0.5 % (0.0-10.0); %Lymphocytes 16.3 % (21.0-51.0); %Monocytes 4.4 % (0.0-10.0); %Neutrophils 78.7 % (42.0-75.0); Hemoglobin 11.4 g/dL (12.0-16.0); Mean Corpuscular Hemoglobin 27.7 pg (27.0-31.0); Mean Corpuscular Volume 86.6 fL (78.0-98.0); Mean Platelet Volume 7.3 fL (7.4-10.4); Platelet Count 445 thou/uL (130-400); RBC Distribution Width 13.4 % (11.5-14.5); Red Blood Cell (RBC) Count 4.11 mill/uL (4.20-5.40); White Blood Cell (WBC) Count 8.9 thou/uL (4.8-10.8)
[2019-01-08] MEDS ORDERED: Acetaminophen 650 MG Suppository PR PRN (23:33)
[2019-01-08] MEDS ORDERED: Ondansetron PF 4 MG/2 ML Vial IVP PRN (23:33)
[2019-01-08] MEDS ORDERED: Acetaminophen 650 MG/20.3 ML UDCUP PER TUBE PRN (23:49)
[2019-01-08 23:51] LABS: Anion Gap 14 mmol/L (10-20); BUN (Urea Nitrogen) 11 mg/dL (7.0-18.7); CRP (Inflammatory) 1.52 mg/dL (= or < 0.5); Calc. Creatinine Clearance 0 mL/min (70-130); Calcium 9.8 mg/dL (7.8-10.44); Carbon Dioxide 27 mmol/L (22-29); Chloride 100 mmol/L (98-107); Estimated GFR-MDRD Greater than 90; Glucose 135 mg/dL (70-105); Potassium 4.2 mmol/L (3.5-5.1); Sodium 137 mmol/L (136-145)
[2019-01-08] MEDS ORDERED: hydrOXYzine 10 MG/5 ML UDCUP PER TUBE PRN (23:51)
[2019-01-08] MEDS ORDERED: Bisacodyl 10 MG SUPP PR PRN (23:51)
[2019-01-08] MEDS ORDERED: INSULIN REGULAR SQ PRN (23:51)
[2019-01-08] MEDS ORDERED: cloNIDine 0.1 MG TAB PER TUBE PRN (23:51)
[2019-01-09 00:03] LABS: CSF Source CSF; Clarity Cloudy/Turbid (Clear); Tube # CUP
[2019-01-09 00:08] LABS: Cell Count Non Hematic 14 %; Lymphocytes 55 %; Segmented Neutrophils 31 %
[2019-01-09] MEDS ORDERED: Sodium Chloride 0.9% 10 ML ONE (00:29)
[2019-01-09] MEDS ORDERED: levETIRAcetam In NaCl (Iso-Os) 1,000 MG in Premix Bag 1 BAG IVPB SCH (00:45)
[2019-01-09] MEDS: Acetaminophen 1,000 MG in Premix Bag 1 BAG IVPB SCH ×4 (01:37→20:37)
[2019-01-09 02:34] LABS: Bacteria/HPF None Seen HPF (None Seen); Bilirubin Negative (Negative); Blood, Urine Negative (Negative); Clarity Turbid (Clear); Glucose, Urine (Dipstick) Normal (Negative); Leukocyte 250 Leu/uL (Negative); Nitrite Negative (Negative); Protein, Urine (Dipstick) 30 mg/dL (Neg-Trace); RBC/HPF 0-3 HPF (0-3); Squamous Epithelial None Seen HPF (0-3); Urobilinogen Normal mg/dL (Less than 2); WBC/HPF 21-50 HPF (0-3)
[2019-01-09 02:35] LABS: Urine Culture Reflex Yes Yes
--- NOTE | 2019-01-09 05:14 | HP ---
This is a 50-minute initial patient evaluation of which greater than 50% of the exam was spent counseling and coordinating the patient's care. Remainder of the exam was spent in review of the patient's medical records and formulation of appropriate treatment plan as well as review of appropriate imaging studies. CHIEF COMPLAINT: Right facial swelling. HISTORY OF PRESENT ILLNESS: Ms. Norwood is a 48-year-old female with a very complicated medical history. The patient apparently sustaining a large right intraparenchymal hemorrhage extending into the right frontal and temporal lobes with significant midline shift. She underwent a decompressive hemicraniectomy on 11/20/2017 and then subsequently had her bone flap replaced in August 2018. She also had a shunt placed. Most recently, she was found to have shunt failure and subsequent shunt revision on 12/04/2018. According to the operative notes, the shunt valve setting was placed at 1.0. The patient resides at a long-term facility and was taken to [facility]. Head CT was performed, showed increase in extra-axial CSF fluid collection especially along the right zygomatic area. The ventricles appear to be enlarged, though stable from a previous head CT on December 16. There has been no drainage from her wound. The patient is unable to provide any of her history. She apparently is not on any type of blood thinners including aspirin. She also has history of urinary tract infections most recently seen at [facility] in early December 2018. There was questionable bacteremia, though this was thought to be a contaminant as only one culture grew out. Given that the extra-axial fluid has enlarged and her ventricles have remained stable, it was decided to proceed with a left frontal EVD placement as there was possible concern for shunt malfunction versus shunt infection. PHYSICAL EXAMINATION: The patient is nonverbal. She has significant contracture of the right upper extremity. She is flaccid in the left upper extremity. She is also flaccid in the left lower extremity, though is able to spontaneously move the right lower extremity. She does not follow any type of commands. She has significant horizontal nystagmus on exam. It is worse on the right eye than the left. Her pupils are equal. She has irritation of the conjunctive and according to the patient's family, has been dealing with an eye infection. Her cranial incisions are well healed. IMPRESSION DIAGNOSES: 1. Status post shunt revision, 12/04/[address] Jeong secondary to a large right intraparenchymal hemorrhage, originally November 2017. 2. Hydrocephalus. 3. Possible shunt malfunction. PLAN: At this time, left frontal EVD will be placed and the procedure including risks and benefits were discussed with the patient's healthcare power of attorneys including her aunts and they wished to proceed with the procedure. We will admit the patient to ICU for close neurologic monitoring and send CSF for sampling. After the EVD has been placed and sampling has occurred, we will start the patient on Ancef. I would like her systolic blood pressure to be less than 150. I should also note that the patient does have some facial twitching as well as right arm and leg twitching, so we will load her with a 1000 mg of Keppra with a maintenance dose of 500 mg b.i.d. Apparently, the patient was on this, although dosage is unconfirmed, but she was taken off this over the past 4 to 6 weeks secondary to decrease in her neurologic status in a facility and the family were concerned that this was causing decreased neurologic function. The EVD will be set at 0 cm of water and our nursing staff will attempt to monitor her ICPs. She is febrile at 100.1 degrees Fahrenheit, but review of her labs notes that she has a normal white count. Her sedimentation rate and CRP are significantly elevated. We will obtain a urinalysis. We will also appreciate our medical colleagues helping to manage the patient's multiple medical issues including diabetes mellitus type 2 and hypertension. We will continue to closely monitor the patient with hourly neuro checks and head of bed will be elevated at 30 degrees. We will plan for repeat head CT on 01/09/2019 to further evaluate the patient's ventricles and extra-axial fluid collection. Please call with any changes in patient's neurologic status. Otherwise, we will continue to monitor the patient. Again, the patient's family has been updated and we will proceed with placement of left frontal EVD. Job ID: [id number]
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
--- NOTE | 2019-01-09 09:03 | PRG ---
DATE OF SERVICE: 01/09/2019 SUBJECTIVE: Ms. Norwood was admitted overnight for what appeared to be increased facial swelling and perhaps increased protuberance of the bone flap overlying her prior craniectomy bed. There was no obvious change in mental status. performed late this morning around 5 o'clock showing persistent ventriculomegaly, bilateral RANCH HAND shunt catheters as well as a new EVD catheter placed into the right lateral ventricle from a leftward approach. This was placed by Ravinder Mosqueda overnight upon presentation. On speaking with the nurse this morning, initial output through the EVD was 60 mL at a pressure setting of 0 cm of water. Thereafter it sat around zero, had a few hours where it was 5 and then 6 and then most recently it was at 26. This is the hour where she actually went down again and was lying flat, so it is perceivable that it would turned off for that matter, and she overdrained. There is clear CSF in the tubing with pulsatile , so our drain is patent. On examination, her neurologic status is roughly the same as I have always seen it. Her blood pressure has been sitting in the 130s to 140s systolic . I will discuss this patient's plan with Dr. Jeong later this morning but I feel that the EVD will only be a temporary placement. Ravinder Mosqueda did tell me that her RANCH HAND shunt was set at 1.5, so perhaps we can drop this to 0.5 or perhaps just 1 to see if we obtain better drainage. However, again, she has a rather low pressure hydrocephalus that she but again we will discuss with Dr. Jeong later. Job ID: [id number]
--- NOTE | 2019-01-09 09:43 | OP ---
DATE OF PROCEDURE: 01/09/2019 This is Ravinder Mosqueda PA-C dictating a report for Acosta Tracey MD. PROCEDURE PERFORMED: External ventricular drain placement. PREPROCEDURE DIAGNOSIS: Hydrocephalus. POSTPROCEDURE DIAGNOSIS: Hydrocephalus. DESCRIPTION OF PROCEDURE: Proper patient identification and time-out were performed after getting consent to proceed with left frontal EVD placement and all indicated procedures. The patient again was correctly identified. Appropriate Santa's point was identified. A small stab incision was made. A small opening was made through the skull and a ventricular catheter was placed in the left frontal area. There was moderate release of CSF and this initially was slightly bloody, but then quickly turned to colorless fluid. It appeared to be slightly cloudy in the collection cup as we send CSF sampling prior to adding antibiotics. The incision was then closed with hetal and the EVD catheter was secured with suture and hetal. A clean fresh dressing was applied. The EVD was connected to the external ventricular drainage system and set at 0 cm of water. The patient tolerated the procedure well. The family was updated postprocedure. Blood loss was minimal. Job ID: [id number]
[2019-01-09] MEDS: Pantoprazole 40 MG GRANULES PACKET PER TUBE SCH (10:03)
[2019-01-09] MEDS: Metoprolol Tartrate 25 MG TAB PER TUBE SCH ×2 (10:03→20:43)
[2019-01-09] MEDS: Glycopyrrolate 1 MG TAB PER TUBE SCH ×2 (10:04→20:46)
--- NOTE | 2019-01-09 10:05 | CON ---
DATE OF CONSULTATION: 01/09/2019 CONSULTING PHYSICIAN: Neurosurgery Service. REASON FOR CONSULTATION: Medical management. HISTORY OF THE PRESENT ILLNESS: Brigida Norwood's case is well known to me. She is a 48-year-old female, who I originally saw in the hospital in November of 2017. She has been in and out of the hospital with multiple issues regarding a shunt for obstructive hydrocephalus. She previously had a tracheostomy for prolonged mechanical ventilation that was removed some time ago. PAST MEDICAL HISTORY: 1. Hypertension. 2. Gastroesophageal reflux. 3. Asthma. 4. Tracheostomy placement. 5. Cholecystectomy. 6. Craniotomy. 7. Shunt placement. SOCIAL HISTORY: Nonsmoker. Does not consume alcohol. PSYCHIATRIC HISTORY: Remarkable for bipolar disorder, anxiety, depression. ALLERGIES: PIPERACILLIN AND TAZOBACTAM, VANCOMYCIN, CODEINE, LEVOFLOXACIN. MEDICATIONS PRIOR TO ADMISSION: 1. Hydroxyzine. 2. Clonidine. 3. Protonix. 4. Nystatin. 5. Glycopyrrolate. 6. Erythromycin ointment. 7. Amlodipine. 8. Acetaminophen. REVIEW OF SYSTEMS: Cannot be obtained secondary to her altered mental status. PHYSICAL EXAMINATION: VITAL SIGNS: Temperature 99.1, pulse 104, blood pressure 138/85, O2 saturations 100%. GENERAL: She is resting quietly, in no distress. She has an EVD placed in the left parietal region. HEENT: Otherwise, unremarkable. NECK: Old tracheostomy scar noted. LUNGS: Clear. CARDIAC: S1 and S2. Regular. ABDOMEN: PEG tube noted. EXTREMITIES: No clubbing, cyanosis, or edema. LABORATORY DATA: White blood cell count 8.9, hematocrit 35.6, and platelet count 445. Sodium 137, potassium 4.2, chloride 100, CO2 of 27, BUN 11, creatinine 0.6, glucose 135. C-reactive protein 1.5. Urinalysis shows 21 to 50 white blood cells. IMAGING STUDIES: Head CT showed a ventriculostomy with continued hydrocephalus. ASSESSMENT: 1. MEN'S SWIM COACH shunt malfunction versus infection. 2. Stable pulmonary status. PLAN: Currently on IV fluids and has an EVD in place. Follow up culture results. Nothing to add at this time, but we will follow with you. Job ID: [id number]
[2019-01-09] MEDS: Erythromycin Base 0.5% Oint 1 GM TUBE R EYE SCH ×4 (10:09→20:46)
[2019-01-09] MEDS ORDERED: Dextrose 5% in Water 1,000 ML IV PRN (11:08)
[2019-01-09] MEDS ORDERED: Dextrose 50% Abboject 50 ML SYRINGE SLOW IVP PRN (11:08)
[2019-01-09] MEDS: Clindamycin/D5W 900 MG in Premix Bag 1 BAG IVPB SCH ×2 (13:41→22:50)
[2019-01-09] MEDS: Sodium Chloride 0.9% 1,000 ML IV SCH (13:42)
--- NOTE | 2019-01-09 14:32 | CON ---
DATE OF CONSULTATION: 01/09/2019 PRIMARY CARE PROVIDER: Dr. Montalvo. REASON FOR CONSULTATION: General medical management. HISTORY OF PRESENT ILLNESS: This is a 48-year-old female, who presented to [facility] Emergency Department in transfer from [facility], where the patient is a current resident after longterm staff noted swelling to the right face. The patient's history significant for previous intraparenchymal hemorrhage involving the right frontal and temporal lobes, status post decompressive hemicraniectomy in 2018. The patient underwent subsequent shunt placement with revision in November 2018. The patient underwent CT imaging of the brain showing evidence of increased CSF fluid collection in the right zygomatic region. Ventriculomegaly was noted and Neurosurgery evaluated the patient in the emergency room. The patient proceeded with external ventricular drain placement and transferred to the Critical Care Unit for further monitoring. The history is obtained after review of electronic medical records as well as discussions with the patient's aunt at the bedside. The patient is nonverbal and unable for to provide any significant history. PAST MEDICAL HISTORY: 1. 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 2. Diabetes mellitus, type 2, mild. 3. Gastroesophageal reflux disease. 4. Hypertension. 5. History of asthma. 6. Epilepsy. 7. Bedbound status. PAST SURGICAL HISTORY: 1. Status post right temporal hemicraniectomy with duraplasty. 2. 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 3. Status post open reduction and internal fixation of right ankle fracture. 4. Status post cholecystectomy. 5. Status post ventriculoperitoneal shunt revision. 6. Status post tracheostomy placement with subsequent removal. 7. Status post PEG tube placement. CURRENT MEDICATIONS: 1. Amlodipine 5 mg per PEG tube daily. 2. Dulcolax 10 mg per rectum daily p.r.n. 3. Clonidine 0.1 mg per PEG tube q.6 hours p.r.n. for systolic blood pressure greater than or equal to 160. 4. Erythromycin base ointment 0.5% one application to the right eye q.i.d. 5. Glycopyrrolate 1 mg per PEG tube b.i.d. 6. Multivitamin 100 mcg per PEG tube daily. 7. Protonix 40 mg per PEG tube daily. 8. Metoprolol tartrate 25 mg per PEG tube b.i.d. ALLERGIES: ZOSYN, VANCOMYCIN, CODEINE, AND LEVAQUIN. FAMILY HISTORY: Positive for diabetes and hypertension. SOCIAL HISTORY: Resident of [facility]. Bedbound status. Nonverbal. No current alcohol, tobacco, or illicit drug use. Accompanied by her aunt in the hospital. REVIEW OF SYSTEMS: Unobtainable due to nonverbal state and chronic encephalopathy. PHYSICAL EXAMINATION: VITAL SIGNS: Currently, blood pressure 111/74, pulse 94, respiratory rate 21, temperature 99.1 with a T-max of 100.1 degrees Fahrenheit, and O2 saturation 100% on room air. GENERAL APPEARANCE: This is a 48-year-old female, somnolent, nonverbal, in no acute distress. HEENT: Horizontal nystagmus noted. Extraocular muscles intact. Mild conjunctival injection. Scalp with external ventricular drain in place in the left frontal distribution. Nares patent. OP is clear with dry oral mucosa. NECK: Supple. No cervical adenopathy. No thyromegaly. No carotid bruits. No JVD appreciated. Cervical spine with full passive range of motion. No cervical adenopathy. No carotid bruits. CHEST: Diminished breath sounds in the bases bilaterally. CARDIOVASCULAR: S1 and S2 without noted murmur, rub, or gallop. ABDOMEN: Rounded, soft, and nontender. PEG tube in place. Bowel sounds are positive in all 4 quadrants. EXTREMITIES: Warm and dry with fair turgor. Minimal edema to the lower extremities. Contractures noted of the right upper and lower extremity. Pulses are palpable distally at the dorsalis pedis, posterior tibial, and popliteal arteries bilaterally. Capillary refill less than 2 seconds. NEUROLOGIC: Nonverbal, minimally responsive. Horizontal nystagmus noted. Flaccid paralysis of the right upper and lower extremity. Bedbound state. PERTINENT LABORATORY AND X-RAY FINDINGS: Sodium 137, potassium 4.2, chloride 100, CO2 of 27, BUN 11, creatinine 0.58, estimated GFR greater than 90, glucose 135, and calcium 9.8. CRP 1.52. CBC showed a white blood cell count of 8.9, hemoglobin 11.4, hematocrit 36, and platelet count 445 with 79% neutrophils. ESR 130. Urinalysis dated 01/09/2019, positive leukocyte esterase with 21 to 50 wbc's per high-power field. CSF fluid culture dated 01/08/2019, showed no growth at [address] of the brain dated 01/09/2019, shows interval placement of 2 ventriculostomy tubes on the left. No significant interval change in prominent hydrocephalus. No acute hemorrhage noted. Telemetry monitoring showed sinus mechanism with heart rates in the 80s to 90s. ASSESSMENT AND PLAN: 1. Hydrocephalus with progressive encephalopathy. The patient admitted under the Neurosurgical Service, status post external ventricular drain placement. Continue serial monitoring of intracranial pressure as directed by the Neurosurgical Team. 2. Diabetes mellitus, type 2. Insulin sliding scale for reflexive coverage. Serial Accu-Cheks q.6 hours. 3. Dysphagia, status post percutaneous endoscopic gastrostomy tube placement. Continue tube feeds with Jevity 1.2 six cans per 24 hours with water flushes of 40 mL pre and post tube feeds. Monitor residuals. 4. Expressive aphasia with right hemiparesis, chronic. Continue general supportive management. PT and OT for range of motion exercises. 5. Hypertension. Resume outpatient blood pressure regimen and monitor clinical response. 6. Prophylaxis. SCDs while in bed. Protonix 40 mg per percutaneous endoscopic gastrostomy tube daily. General aspiration precautions. 7. Code status is full. Surrogate medical decision maker is the patient's mother. Thank you for the consultation. We will continue to follow with Primary Service. Job ID: [id number]
--- NOTE | 2019-01-09 17:46 | PRG ---
DATE OF SERVICE: 01/09/2019 I reviewed the notes of my colleague, Ravinder Mosqueda PA-C, and agreed with its content. Ms. Norwood is well known to our Neurosurgical Service. She is a 48-year-old woman with history of hemorrhagic right hemispheric stroke with subsequent cranioplasty and complex hydrocephalus, requiring bilateral parietal ventriculoperitoneal shunts. She presented yesterday to the ER with increased facial swelling in the right congregational region consistent with increasing pseudomeningocele. Head CT demonstrated enlargement of ventricular system to a degree with more of an impressive enlargement in her pseudomeningocele and external hydrocephalus. We ordered labs. Her white blood cell count was normal, and she was reportedly afebrile. Her ESR profoundly elevated at over 130, and her CRP is elevated at 1.52. We did sample cerebrospinal fluid as I was concerned of potential shunt malfunction, shunt infection, or infection elsewhere such as the urine. The CSF does demonstrate elevated protein at 314 and elevated neutrophil percentage in the CSF. Finally, she does have a low glucose again a bit concerning for potential central nervous system infection. Nevertheless, again she does not have an elevated white blood cell count, but again, the consideration of elevated intracranial pressure with internal and external hydrocephalus warranted, in my opinion placement of external ventricular drain, and we set this at 0 cm of water. Head CT this morning is satisfactory with some decompression of her internal and certainly decompression of her external hydrocephalus. We are turning her care over to Dr. Jeong as the patient is well known to his service. DIAGNOSIS: Worsening hydrocephalus with complex hydrocephalus. Job ID: [id number]
[2019-01-09] MEDS: Amlodipine 5 MG TAB PER TUBE SCH (20:45)
[2019-01-10] MEDS: Clindamycin/D5W 900 MG in Premix Bag 1 BAG IVPB SCH ×3 (05:45→21:59)
[2019-01-10] MEDS: Sodium Chloride 0.9% 1,000 ML IV SCH ×2 (05:45→17:07)
[2019-01-10] MEDS: Pantoprazole 40 MG GRANULES PACKET PER TUBE SCH (07:36)
[2019-01-10] MEDS: Glycopyrrolate 1 MG TAB PER TUBE SCH ×2 (07:36→21:13)
[2019-01-10] MEDS: Metoprolol Tartrate 25 MG TAB PER TUBE SCH ×2 (07:36→21:13)
[2019-01-10] MEDS: Erythromycin Base 0.5% Oint 1 GM TUBE R EYE SCH ×4 (07:37→21:13)
--- NOTE | 2019-01-10 08:20 | PRG ---
DATE OF SERVICE: 01/10/2019 SUBJECTIVE: Brigida is in the ICU for EVD monitoring. She will follow commands by moving her right foot when asked to. OBJECTIVE: HEENT: Exam is otherwise unchanged. NECK: Old tracheostomy scar. LUNGS: Clear. CARDIAC: S1 and S2. Regular. ABDOMEN: Soft. Currently being given bolus feeds. EXTREMITIES: Trace edema throughout. LABORATORY DATA: No new labs were obtained today. So far, spinal fluid cultures have a negative Gram-stain and no growth. ASSESSMENT: Possible shunt malfunction. PLAN: From a critical care perspective, she is stable. She will remain in the ICU as long as the neurosurgeons need the EVD in. She is on empiric clindamycin, which I assume is for shunt prophylaxis. Job ID: [id number]
--- NOTE | 2019-01-10 09:05 | PRG ---
DATE OF SERVICE: 01/10/2019 Ms. Norwood has a complex neurological history consist of aneurysmal subarachnoid hemorrhage with history of hemicraniectomy and replacement of bone flap. She has had subsequent development of hydrocephalus, where she has had not one, but two ventriculoperitoneal shunts placed. She has had multiple admissions for urosepsis and other medical comorbidities associated with her aneurysmal subarachnoid hemorrhage. Her most recent surgical procedure by our service was placement of a second ventriculoperitoneal shunt as her bone flap started to migrate away from the craniectomy defect from what we believe it was hydrocephalus at the time. Despite placement of the second shunt, she has continued to have a substantial buildup of spinal fluid. She presented yesterday due to concerns over a pseudomeningocele formation and a ventriculostomy was placed. She appears to be at baseline this morning, although that is somewhat difficult to ascertain as her baseline neurologic status is very poor. She does open her eyes, but she is not interactive with me. She is intermittently interactive with family and according to them that has been her state for several months. Her drain has been set at 0. She has had minimal output. I believe it is very likely that she has a low-pressure hydrocephalus phenomenon and that her shunts may be functional, but are not being triggered due to the low pressure. This morning, I have lowered the drain to negative pressure and drained off 25 mL. We will repeat the scan to see if there has been any change in the interventricular volume, and if we need to, we will continue to force drainage until her ventricular size normalizes. Hopefully at that point, we will see some output and some performance from her shunts. I discussed with her family today that the plan be to keep her in the ICU over the weekend with ongoing EVD drainage. I also discussed with them that I do not foresee a need for surgical intervention as she has had many and her neurologic state is so poor that I had hard time in visioning any additional surgical procedure that would offer any substantial benefit. They understand this and are in agreement with it. Job ID: [id number]
[2019-01-10 12:07] VITALS: BMI 30.3
--- NOTE | 2019-01-10 12:50 | CT ---
CT HEAD WITHOUT CONTRAST: 01/10/2019 INDICATIONS: Follow up hydrocephalus. COMPARISON: Yesterday's CT of 01/09/2019. FINDINGS: Postop craniotomy changes on the right. Ventriculostomy tubes have been previously described and are unchanged. There has been a decrease in the size of the right lateral ventricle since yesterday. It now measures approximately 4 cm in width in the axial plane whereas yesterday's measurement was 5 to 6 cm in widt h. The left lateral ventricle size does not appear significantly changed. No hemorrhage or other acute change. IMPRESSION: Decrease in the size of the right lateral ventricle when compared to yesterday. POS: [facility]
--- NOTE | 2019-01-10 14:28 | PDOC.HOSPP ---
- Subjective Encounter Date: 01/10/19 Encounter Time: 14:25 Subjective: f/u for hydrocephalus with AMS with L frontal EVD placement 01/09/19. CT brain imaging showing reduced R lateral ventriculomegaly. - Objective Vital Signs & Weight: Vital Signs (12 hours) Temp Pulse Ox 01/10/19 12:00 98.8 F 01/10/19 07:25 100 01/10/19 07:00 98.9 F 01/10/19 04:00 98.2 F Weight Admit Weight 146 lb 2.664 oz Weight 145 lb 1.027 oz Most Recent Monitor Data Heart Rate from ECG 97 NIBP 134/78 NIBP BP-Mean 97 Respiration from ECG 24 SpO2 100 I&O: 01/09/19 01/10/19 01/11/19 06:59 06:59 06:59 Intake Total 597 4205 927 Output Total 645 2636 884 Balance -48 1569 43 Result Diagrams: 01/08/19 23:17 01/08/19 23:17 Additional Labs: Accuchecks 01/10/19 01/10/19 01/10/19 13:03 06:28 03:50 POC Glucose 98 155 H 96 01/10/19 01/09/19 00:09 18:10 POC Glucose 176 H 121 H Microbiology 01/09/19 02:05 Venous blood - Right Hand Blood Culture - Preliminary Specimen has been received and culture in progress. No Growth to date. 01/09/19 01:59 Venous blood - Left Hand Blood Culture - Preliminary Specimen has been received and culture in progress. No Growth to date. 01/08/19 22:42 Spinal Fluid Body Fluid Culture - Preliminary Radiology Reviewed by me: Yes (CT brain - decreased R lateral ventriculomegaly) Hospitalist ROS - Medication Medications: Active Medications Generic Name Dose Route Start Last Admin Trade Name Freq PRN Reason Stop Dose Admin Amlodipine Besylate 5 mg 01/09/19 21:00 01/09/19 20:45 Norvasc PER TUBE 5 mg HS ALAN Administration Erythromycin 0 gm 01/09/19 09:00 01/10/19 13:43 Erythromycin Base 0.5% Oint R EYE 1 drop QID ALAN Administration Glycopyrrolate 1 mg 01/09/19 09:00 01/10/19 07:36 Robinul PER TUBE 1 mg BID ALAN Administration Sodium Chloride 1,000 mls @ 75 mls/hr 01/08/19 23:45 01/10/19 05:45 Normal Saline 0.9% IV 1,000 mls .[id number] ALAN Administration Levetiracetam 500 mg/ Device 100 mls @ 200 mls/hr 01/09/19 09:00 01/10/19 07: 40 IVPB 100 mls BID ALAN Administration Clindamycin Phosphate/Dextrose 50 mls @ 100 mls/hr 01/09/19 14:00 01/10/19 13 :47 900 mg/ Device IVPB 50 mls Q8HR ALAN Administration Metoprolol Tartrate 25 mg 01/09/19 09:00 01/10/19 07:36 Lopressor PER TUBE 25 mg BID ALAN Administration Pantoprazole Sodium 40 mg 01/09/19 09:00 01/10/19 07:36 Protonix PER TUBE 40 mg DAILY ALAN Administration - Exam General Appearance: awake alert Eye: PERRL, anicteric sclera ENT: normocephalic atraumatic, no oropharyngeal lesions ENT - other findings: L frontal EVD in place Neck: supple, symmetric, no JVD, no thyromegaly Heart: RRR, no gallops, no rubs, normal peripheral pulses Respiratory: no wheezes Respiratory - other findings: diminished in bases Gastrointestinal: soft, non-tender, non-distended, normal bowel sounds, no palpable masses Gastrointestinal - other findings: PEG tube in place Extremities: no cyanosis, no clubbing Skin: normal turgor, no lesions Neurological - other findings: non-verbal, bedbound, flaccid R hemiplegia Musculoskeletal: generalized weakness Hosp A/P (1) Hydrocephalus Code(s): G91.9 - HYDROCEPHALUS, UNSPECIFIED Status: Acute Qualifiers: Hydrocephalus type: obstructive Qualified Code(s): G91.1 - Obstructive hydrocephalus Plan: s/p L frontal EVD, continue serial monitoring with Neurosurgery (2) Acute metabolic encephalopathy Code(s): G93.41 - METABOLIC ENCEPHALOPATHY Status: Acute Plan: Multifactorial, continue to supportive mgmt (3) DM2 (diabetes mellitus, type 2) Status: Chronic Qualifiers: Diabetes mellitus residential insulin use: with repairer shoe sticks use Plan: ISS, serial accuchecks (4) Expressive aphasia Code(s): R47.01 - APHASIA Status: Chronic Plan: chronic, supportive mgmt, family for support (5) Dysphagia Code(s): R13.10 - DYSPHAGIA, UNSPECIFIED Status: Chronic Qualifiers: Dysphagia type: oropharyngeal phase Qualified Code(s): R13.12 - Dysphagia, oropharyngeal phase Plan: Continue TF's, monitor residuals - Plan continue antibiotics, director social service, speech therapy, respiratory therapy, DVT proph w/SCDs Continue supportive mgmt Continue ISS Continue Keppra IV Continue Norvasc/Metoprolol Nutritional support with TF's
[2019-01-10] MEDS: Amlodipine 5 MG TAB PER TUBE SCH (21:13)
[2019-01-11] MEDS: Sodium Chloride 0.9% 1,000 ML IV SCH ×2 (06:02→21:06)
[2019-01-11] MEDS: Clindamycin/D5W 900 MG in Premix Bag 1 BAG IVPB SCH ×3 (06:02→21:10)
[2019-01-11] MEDS: Erythromycin Base 0.5% Oint 1 GM TUBE R EYE SCH ×4 (09:05→21:09)
[2019-01-11] MEDS: Pantoprazole 40 MG GRANULES PACKET PER TUBE SCH (09:57)
[2019-01-11] MEDS: Glycopyrrolate 1 MG TAB PER TUBE SCH ×2 (09:58→21:09)
[2019-01-11] MEDS: Metoprolol Tartrate 25 MG TAB PER TUBE SCH ×2 (09:58→21:09)
--- NOTE | 2019-01-11 10:19 | PRG ---
DATE OF SERVICE: 01/11/2019 The patient was seen and examined, I agree with Addie Campos's evaluation on 01/11/2019. The patient's neuro exam seems to be as described per baseline. There is some discussion of some waxing and waning. The pseudomeningocele remains soft and the EVD remains draining at 0 cm. We will continue with the current course of action. Job ID: [id number]
--- NOTE | 2019-01-11 13:07 | PRG ---
DATE OF SERVICE: 01/11/2019 SUBJECTIVE: The patient had no overnight events. Her EVD is currently set at 0 cm of water, but has had no output overnight. OBJECTIVE: NEUROLOGIC: On exam this morning, the patient does not open her eyes, but she is noted to have some rapid alternating eye movements. Her pupils are equal and sluggish. She will withdraw briskly over bilateral lower extremities and then over the left upper extremity. ASSESSMENT AND PLAN: Discussed the case with Dr. Londono and he recommends leaving the EVD at its current setting. We will continue to monitor closely. Job ID: [id number]
--- NOTE | 2019-01-11 14:05 | PDOC.HOSPP ---
- Subjective Encounter Date: 01/11/19 Encounter Time: 11:15 Subjective: not oriented, non verbal, does not interact with examiner - Objective Vital Signs & Weight: Vital Signs (12 hours) Temp Pulse Ox 01/11/19 12:00 98.1 F 01/11/19 08:00 98 F 100 01/11/19 04:00 98.9 F Weight Admit Weight 146 lb 2.664 oz Weight 145 lb 1.027 oz Most Recent Monitor Data Heart Rate from ECG 80 NIBP 122/83 NIBP BP-Mean 96 Respiration from ECG 21 SpO2 100 I&O: 01/10/19 01/11/19 01/12/19 06:59 06:59 06:59 Intake Total 4205 3801 900 Output Total 2636 2269 860 Balance 1569 1532 40 Result Diagrams: 01/08/19 23:17 01/08/19 23:17 Additional Labs: Accuchecks 01/11/19 01/11/19 01/11/19 11:09 05:59 00:03 POC Glucose 122 H 150 H 116 H 01/10/19 18:34 POC Glucose 154 H Hospitalist ROS - Medication Medications: Active Medications Generic Name Dose Route Start Last Admin Trade Name Freq PRN Reason Stop Dose Admin Amlodipine Besylate 5 mg 01/09/19 21:00 01/10/19 21:13 Norvasc PER TUBE 5 mg HS ALAN Administration Erythromycin 0 gm 01/09/19 09:00 01/11/19 09:05 Erythromycin Base 0.5% Oint R EYE 1 applic QID ALAN Administration Glycopyrrolate 1 mg 01/09/19 09:00 01/11/19 09:58 Robinul PER TUBE 1 mg BID ALAN Administration Sodium Chloride 1,000 mls @ 75 mls/hr 01/08/19 23:45 01/11/19 06:02 Normal Saline 0.9% IV 1,000 mls .[id number] ALAN Administration Levetiracetam 500 mg/ Device 100 mls @ 200 mls/hr 01/09/19 09:00 01/11/19 09: 58 IVPB 100 mls BID ALAN Administration Clindamycin Phosphate/Dextrose 50 mls @ 100 mls/hr 01/09/19 14:00 01/11/19 06 :02 900 mg/ Device IVPB 50 mls Q8HR ALAN Administration Dextrose/Water 1,000 mls @ 0 mls/hr 01/09/19 11:08 01/10/19 17:02 D5w IV 1,000 mls .Q0M PRN Administration Hypoglycemia As Directed Metoprolol Tartrate 25 mg 01/09/19 09:00 01/11/19 09:58 Lopressor PER TUBE 25 mg BID ALAN Administration Pantoprazole Sodium 40 mg 01/09/19 09:00 01/11/19 09:57 Protonix PER TUBE 40 mg DAILY ALAN Administration - Exam Eye: anicteric sclera ENT: no oropharyngeal lesions, dry oral mucosa Neck: supple, no JVD Heart: RRR, no murmur Respiratory: no wheezes, no rales Gastrointestinal: soft, non-tender, non-distended, normal bowel sounds Gastrointestinal - other findings: peg+ Extremities: no clubbing, no edema Neurological: hemiplegia Hosp A/P (1) Hydrocephalus Code(s): G91.9 - HYDROCEPHALUS, UNSPECIFIED Status: Acute Qualifiers: Hydrocephalus type: obstructive Qualified Code(s): G91.1 - Obstructive hydrocephalus (2) Chronic static encephalopathy Code(s): G93.49 - OTHER ENCEPHALOPATHY Status: Chronic (3) Dysphagia Code(s): R13.10 - DYSPHAGIA, UNSPECIFIED Status: Chronic Qualifiers: Dysphagia type: oropharyngeal phase Qualified Code(s): R13.12 - Dysphagia, oropharyngeal phase (4) Expressive aphasia Code(s): R47.01 - APHASIA Status: Chronic (5) Chronic anemia Code(s): D64.9 - ANEMIA, UNSPECIFIED Status: Chronic (6) DM2 (diabetes mellitus, type 2) Status: Chronic Qualifiers: Diabetes mellitus termite treater helper insulin use: without shelter use (7) GERD (gastroesophageal reflux disease) Code(s): K21.9 - GASTRO-ESOPHAGEAL REFLUX DISEASE WITHOUT ESOPHAGITIS Status: Chronic Qualifiers: (8) HTN (hypertension) Code(s): I10 - ESSENTIAL (PRIMARY) HYPERTENSION Status: Chronic Qualifiers: Hypertension type: essential hypertension Qualified Code(s): I10 - Essential (primary) hypertension (9) Obesity (BMI 30.0-34.9) Code(s): E66.9 - OBESITY, UNSPECIFIED Status: Chronic (10) Seizure disorder Code(s): G40.909 - EPILEPSY, UNSP, NOT INTRACTABLE, WITHOUT STATUS EPILEPTICUS Status: Chronic - Plan is on zyvox q12h, has staph epidermidis in spinal fluid, await opinion has chronic encephalopathy, left hemiplegia, contractures, fft, peg feeds, snf resident, will get palliative care consultation continue keppra, clonidine, clindamycin, norvasc, lopressor, protonix, iv fluids and jevity bolus peg feeds hemostable still has evd drain+
--- NOTE | 2019-01-11 15:43 | PRG ---
DATE OF SERVICE: 01/11/2019 SERVICE: Pulmonary Medicine. INTERVAL HISTORY: The patient is doing poorly from a neurologic standpoint. That being said, there has been no change from her baseline. She cannot provide any additional elements of the history. Otherwise, there has been no interval change. PHYSICAL EXAMINATION: VITAL SIGNS: Afebrile, pulse 88, blood pressure 131/83, respirations 22, saturation 100% on room air. GENERAL: The patient is awake and alert, in no apparent distress. LUNGS: Good air entry. No rhonchi, wheezing, or crackles are appreciated. HEART: Normal rate, regular. ABDOMEN: Soft, nontender, and nondistended. Bowel sounds are positive. MUSCULOSKELETAL: No cyanosis or clubbing. There is no pitting in the bilateral lower extremities. NEUROLOGIC: Grossly nonfocal. LABORATORIES: CSF fluid is growing Staph epidermidis. Blood cultures x2 and urine culture are negative to date. ASSESSMENT: 1. Hydrocephalus. 2. Static encephalopathy. 3. Seizure disorder. 4. 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 DISCUSSION AND PLAN: The patient will remain in the ICU as long as she has an EVD in place. Currently, she is at baseline. I will repeat a CBC, basic metabolic profile, magnesium, phosphorus, ESR, and CRP. Linezolid will be continued. Truth be told, there are not much requirements for the clindamycin. I leave that to Neurosurgery however. Pulmonary/Critical Care will continue to follow along in this location. Job ID: [id number]
[2019-01-11] MEDS: Amlodipine 5 MG TAB PER TUBE SCH (21:08)
[2019-01-11] MEDS: Linezolid 600 MG in Premix Bag 1 BAG IVPB SCH (21:10)
[2019-01-12 04:51] LABS: #Eosinphils 0.1 thou/uL (0.0-0.7); #Lymphocytes 1.5 thou/uL (1.20-3.40); #Monocytes 0.3 thou/uL (0.11-0.59); #Neutrophils 6.8 thou/uL (1.40-6.50); %Basophils 0.1 % (0.0-1.0); %Eosinophils 1.2 % (0.0-10.0); %Lymphocytes 17.2 % (21.0-51.0); %Monocytes 3.9 % (0.0-10.0); %Neutrophils 77.6 % (42.0-75.0); Hemoglobin 10.2 g/dL (12.0-16.0); Mean Corpuscular HGB CONC 31.8 g/dL (32.0-36.0); Mean Corpuscular Hemoglobin 27.4 pg (27.0-31.0); Mean Platelet Volume 7.7 fL (7.4-10.4); Platelet Count 407 thou/uL (130-400); RBC Distribution Width 13.6 % (11.5-14.5); Red Blood Cell (RBC) Count 3.72 mill/uL (4.20-5.40); White Blood Cell (WBC) Count 8.7 thou/uL (4.8-10.8)
[2019-01-12 05:11] LABS: Phosphorus 3.3 mg/dL (2.3-4.7)
[2019-01-12 05:16] LABS: Anion Gap 13 mmol/L (10-20); BUN (Urea Nitrogen) 9 mg/dL (7.0-18.7); Calc. Creatinine Clearance 146 mL/min (70-130); Calcium 8.7 mg/dL (7.8-10.44); Carbon Dioxide 26 mmol/L (22-29); Chloride 103 mmol/L (98-107); Estimated GFR-MDRD Greater than 90; Glucose 106 mg/dL (70-105); Magnesium 1.9 mg/dL (1.6-2.6); Potassium 3.8 mmol/L (3.5-5.1); Sodium 138 mmol/L (136-145)
[2019-01-12] MEDS: Clindamycin/D5W 900 MG in Premix Bag 1 BAG IVPB SCH ×2 (05:43→19:26)
[2019-01-12] MEDS: Metoprolol Tartrate 25 MG TAB PER TUBE SCH ×2 (08:55→20:56)
[2019-01-12] MEDS: Linezolid 600 MG in Premix Bag 1 BAG IVPB SCH ×2 (08:55→20:57)
[2019-01-12] MEDS: Glycopyrrolate 1 MG TAB PER TUBE SCH ×2 (08:55→20:56)
[2019-01-12] MEDS: Pantoprazole 40 MG GRANULES PACKET PER TUBE SCH (08:55)
[2019-01-12] MEDS ORDERED: levETIRAcetam In NaCl (Iso-Os) 750 MG in Premix Bag 1 BAG IVPB SCH (09:08)
[2019-01-12] MEDS: Sodium Chloride 0.9% 1,000 ML IV SCH (09:18)
[2019-01-12] MEDS: Erythromycin Base 0.5% Oint 1 GM TUBE R EYE SCH ×4 (09:18→20:57)
--- NOTE | 2019-01-12 09:24 | PRG ---
DATE OF SERVICE: 01/12/2019 SUBJECTIVE: The patient continues to have EVD status 0 cm of water. There has been no output overnight. The patient's neuro exam is unchanged. She will intermittently open her eyes and move the right upper extremity. She does have some persistent rapid alternating eye movements, which could suggest seizure activity. She is currently on Keppra 500 b.i.d. Opens eyes, rapid eye movements this morning. Moving RUE spontaneously. This pseudomeningocele remains soft. We will continue with the EVD set at 0 cm of water. However, increased her Keppra to 750 mg b.i.d. We will continue the current course of care. Job ID: [id number] [facility]
--- NOTE | 2019-01-12 11:35 | PDOC.HOSPP ---
- Subjective Encounter Date: 01/12/19 Encounter Time: 09:00 Subjective: not in distress, nonverbal, does not follow verbal stimuli - Objective Vital Signs & Weight: Vital Signs (12 hours) Temp 01/12/19 08:00 99.1 F 01/12/19 04:00 98.4 F 01/12/19 00:00 98.8 F Weight Admit Weight 146 lb 2.664 oz Weight 145 lb 1.027 oz Most Recent Monitor Data Heart Rate from ECG 90 NIBP 136/84 NIBP BP-Mean 101 Respiration from ECG 24 SpO2 97 I&O: 01/11/19 01/12/19 01/13/19 06:59 06:59 06:59 Intake Total 3801 3900 990 Output Total 2269 3490 355 Balance 1532 410 635 Result Diagrams: 01/12/19 03:54 01/12/19 03:54 Additional Labs: Accuchecks 01/12/19 00:17 POC Glucose 126 H Hospitalist ROS - Medication Medications: Active Medications Generic Name Dose Route Start Last Admin Trade Name Freq PRN Reason Stop Dose Admin Amlodipine Besylate 5 mg 01/09/19 21:00 01/11/19 21:08 Norvasc PER TUBE 5 mg HS ALAN Administration Erythromycin 0 gm 01/09/19 09:00 01/12/19 09:18 Erythromycin Base 0.5% Oint R EYE 1 applic QID ALAN Administration Glycopyrrolate 1 mg 01/09/19 09:00 01/12/19 08:55 Robinul PER TUBE 1 mg BID ALAN Administration Sodium Chloride 1,000 mls @ 75 mls/hr 01/08/19 23:45 01/12/19 09:18 Normal Saline 0.9% IV Not Given .[id number] ALAN Clindamycin Phosphate/Dextrose 50 mls @ 100 mls/hr 01/09/19 14:00 01/12/19 05 :43 900 mg/ Device IVPB 50 mls Q8HR ALAN Administration Dextrose/Water 1,000 mls @ 0 mls/hr 01/09/19 11:08 01/10/19 17:02 D5w IV 1,000 mls .Q0M PRN Administration Hypoglycemia As Directed Linezolid 600 mg/ Device 300 mls @ 150 mls/hr 01/11/19 21:00 01/12/19 08:55 IVPB 300 mls Q12HR ALAN Administration Levetiracetam 750 mg/ Sodium 107.5 mls @ 215 mls/hr 01/12/19 10:00 01/12/19 10:21 Chloride IVPB 107.5 mls Q12H ALAN Administration Metoprolol Tartrate 25 mg 01/09/19 09:00 01/12/19 08:55 Lopressor PER TUBE 25 mg BID ALAN Administration Pantoprazole Sodium 40 mg 01/09/19 09:00 01/12/19 08:55 Protonix PER TUBE 40 mg DAILY ALAN Administration - Exam Eye: anicteric sclera ENT: no oropharyngeal lesions, moist mucosa Neck: supple, no JVD Heart: no murmur, no gallops Respiratory: no wheezes, no rales Gastrointestinal: soft, non-tender, non-distended, normal bowel sounds Gastrointestinal - other findings: peg+ Extremities: no cyanosis, no edema Neurological: hemiplegia Hosp A/P (1) Hydrocephalus Code(s): G91.9 - HYDROCEPHALUS, UNSPECIFIED Status: Acute Qualifiers: Hydrocephalus type: obstructive Qualified Code(s): G91.1 - Obstructive hydrocephalus (2) Chronic static encephalopathy Code(s): G93.49 - OTHER ENCEPHALOPATHY Status: Chronic (3) Dysphagia Code(s): R13.10 - DYSPHAGIA, UNSPECIFIED Status: Chronic Qualifiers: Dysphagia type: oropharyngeal phase Qualified Code(s): R13.12 - Dysphagia, oropharyngeal phase (4) Expressive aphasia Code(s): R47.01 - APHASIA Status: Chronic (5) Chronic anemia Code(s): D64.9 - ANEMIA, UNSPECIFIED Status: Chronic (6) DM2 (diabetes mellitus, type 2) Status: Chronic Qualifiers: Diabetes mellitus custodial insulin use: without custodial use (7) GERD (gastroesophageal reflux disease) Code(s): K21.9 - GASTRO-ESOPHAGEAL REFLUX DISEASE WITHOUT ESOPHAGITIS Status: Chronic Qualifiers: (8) HTN (hypertension) Code(s): I10 - ESSENTIAL (PRIMARY) HYPERTENSION Status: Chronic Qualifiers: Hypertension type: essential hypertension Qualified Code(s): I10 - Essential (primary) hypertension (9) Obesity (BMI 30.0-34.9) Code(s): E66.9 - OBESITY, UNSPECIFIED Status: Chronic (10) Seizure disorder Code(s): G40.909 - EPILEPSY, UNSP, NOT INTRACTABLE, WITHOUT STATUS EPILEPTICUS Status: Chronic - Plan is on zyvox q12h, has staph epidermidis in spinal fluid, await opinion has chronic static encephalopathy, left hemiplegia, contractures, fft, peg feeds , snf resident, poor prognosis, palliative care consultation On increased dose of keppra, continue clonidine, clindamycin, norvasc, lopressor , protonix, iv fluids and jevity bolus peg feeds hemostable still has evd drain+
--- NOTE | 2019-01-12 13:44 | PRG ---
DATE OF SERVICE: 01/12/2019 INTERVAL HISTORY: The patient is basically stable from a neurologic standpoint. There has been no change to her condition otherwise. She cannot provide any additional elements of the history. Nursing reports no overnight events. OBJECTIVE: VITAL SIGNS: Afebrile, pulse 91, blood pressure 121/81, respirations 14, saturation 97%, currently on room air. GENERAL: The patient is statically encephalopathic. HEENT: Normocephalic and atraumatic. Sclerae white. Conjunctivae pink. Oral mucosa is moist without lesions. LUNGS: Decent air entry. No prolonged expiratory phase or wheezing is appreciated. HEART: Normal rate, regular. ABDOMEN: Soft, nontender, and nondistended. Bowel sounds are positive. MUSCULOSKELETAL: No cyanosis or clubbing. No pitting in the bilateral lower extremities. LABORATORY DATA: WBC 8.7, hemoglobin 10.2, platelets 407,000. ESR is dropped to 89. CRP is going up to 1.73. Basic metabolic profile is otherwise unremarkable. Magnesium and phosphorous fall within the normal limits. Urinalysis is unremarkable. Staph epidermidis is growing in the original CSF culture. Blood cultures x2, urine culture are both unremarkable. ASSESSMENT: 1. Hydrocephalus. 2. Static encephalopathy. 3. Seizure disorder. 4. 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 DISCUSSION AND PLAN: The patient remains in the ICU as long as the EVD is in place. She is clearly moving in the right direction. Inflammatory profile seems to be improving slightly. Pulmonary will follow along in this location. Antibiotics per ID. It is not clear to me that Linezolid has good CSF penetration. Job ID: [id number] [facility]
--- NOTE | 2019-01-12 16:34 | CON ---
DATE OF CONSULTATION: 01/09/2019 REASON FOR CONSULTATION: Altered mental status and abnormal CSF findings. HISTORY OF PRESENT ILLNESS: A 48-year-old patient, familiar to me from prior visits, history of intracerebral hemorrhage, decompressive craniectomy, pretty much in a vegetative state since various complications including aspiration pneumonia, hypersensitivity reaction to antimicrobial therapy, episodes of recurrent fever, and hydrocephalus requiring CONE MARKER shunt drainage x2. She has also had an episode of pulmonary embolism in the past and adenoviral pneumonia. She has had two CONE MARKER shunts placed, but no complication of the CONE MARKER shunts in terms of infection in the past. This time, she comes in with reported a change in her responsiveness. The CT of head performed showed increase in extra-axial CSF fluid collection along the right zygomatic area. The ventricles appeared enlarged but not changed from prior CT. No drainage from the craniotomy wound was noted and a possibility of shunt malfunction was considered and therefore an EVD was placed. The CSF is abnormal as noted below and currently the patient is not responsive. I usually see her in this condition every time she is admitted. That is not changed in my opinion. She has not had any respiratory symptoms. No vomiting. No diarrhea. She has a Ortega catheter inserted, which I believe was inserted upon admission. She has a G-tube for nutritional input. PAST MEDICAL HISTORY: Includes intracranial hemorrhage, craniectomy, type 2 diabetes, CONE MARKER shunt placement x2, aspiration pneumonia, Dilantin associated hypersensitivity reaction, pulmonary embolism, adenoviral pneumonia. Chronic indwelling Ortega catheter, removed with successful voiding trial recently. PAST SURGICAL HISTORY: As above. Also cholecystectomy, gastrostomy tube placement, brain aneurysm repair, and bone flap replacement due to complications. ALLERGIES: SULFA DRUGS, CODEINE, VANCOMYCIN, ZOSYN. FAMILY HISTORY: Noncontributory. SOCIAL HISTORY: [facility] resident. Never smoker. CURRENT MEDICATIONS: 1. P.r.n. medications. 2. Clindamycin. 3. Catapres. 4. Erythromycin. 5. Keppra. 6. Linezolid. 7. Zofran. PHYSICAL EXAMINATION: VITAL SIGNS: T-max 100.1, she has been afebrile since. Other vital signs are not particularly remarkable. SKIN: Shows the EVD in place. G tube and Ortega catheter. Peripheral IV access. HEENT: Ocular movements are disconjugate. She does not establish eye contact. Pupils are reactive about 2 mm. Oral cavity is moist. No drainage at the previous craniectomy sites. Cranial deformity from prior surgeries. LUNGS: Symmetric, clear breath sounds. HEART: S1 and S2, regular rate. ABDOMEN: Soft and not distended. Gastrostomy exit site appears normal. : Ortega catheter in place. NEUROLOGIC: Quadriparesis. No areas of skin breakdown otherwise. LABORATORY DATA: White cell count 8.9, hemoglobin 11.4, platelets 445. Chemistry with a creatinine 0.5. CSF with total nucleated cells of 139 with 31% neutrophils, 55% lymphocytes, RBCs were 24,531, protein was 314, and glucose was 37 with a concomitant serum glucose of 120. Cultures from the CSF which yielded Staphylococcus epidermidis. The organism is methicillin-resistant and quantitation is few. ASSESSMENT: 1. Prior intracranial hemorrhage from aneurysm, status post craniectomy with subsequent cranial flap revision. 2. CONE MARKER shunt placement x2 with persistent hydrocephalus. 3. Change in mental status. 4. CONE MARKER shunt malfunction on the right side. 5. CSF abnormalities consistent with meningitis, probably CONE MARKER shunt associated. The patient has reported history of vancomycin allergy and we will continue with the Zyvox treatment. The definitive management would be removal of the devices and then replacement, but I do not know if that has been entertained. The EVD was placed, the usual approach is to repeat CSF cultures until they are negative for few days and then after removal of the other devices, then replacement with a permanent device, either that or palliative care which I think in my opinion would be the more reasonable approach since she is going to continue having problems with those devices in the future and her functional status is very limited. For the time being, continue Zyvox and discontinue clindamycin. Job ID: [id number]
[2019-01-12] MEDS: Amlodipine 5 MG TAB PER TUBE SCH (20:56)
[2019-01-13 03:53] LABS: #Eosinphils 0.1 thou/uL (0.0-0.7); #Lymphocytes 1.4 thou/uL (1.20-3.40); #Monocytes 0.3 thou/uL (0.11-0.59); #Neutrophils 6.5 thou/uL (1.40-6.50); %Basophils 0.1 % (0.0-1.0); %Monocytes 3.3 % (0.0-10.0); %Neutrophils 78.7 % (42.0-75.0); Hemoglobin 9.9 g/dL (12.0-16.0); Mean Corpuscular HGB CONC 31.9 g/dL (32.0-36.0); Mean Corpuscular Hemoglobin 27.4 pg (27.0-31.0); Mean Corpuscular Volume 85.9 fL (78.0-98.0); Mean Platelet Volume 7.5 fL (7.4-10.4); Platelet Count 395 thou/uL (130-400); RBC Distribution Width 13.7 % (11.5-14.5); Red Blood Cell (RBC) Count 3.62 mill/uL (4.20-5.40); White Blood Cell (WBC) Count 8.2 thou/uL (4.8-10.8)
[2019-01-13 04:05] LABS: Phosphorus 3.5 mg/dL (2.3-4.7)
[2019-01-13 04:06] LABS: Anion Gap 12 mmol/L (10-20); BUN (Urea Nitrogen) 9 mg/dL (7.0-18.7); Calc. Creatinine Clearance 149 mL/min (70-130); Carbon Dioxide 27 mmol/L (22-29); Chloride 106 mmol/L (98-107); Estimated GFR-MDRD Greater than 90; Glucose 95 mg/dL (70-105); Magnesium 1.9 mg/dL (1.6-2.6); Potassium 3.8 mmol/L (3.5-5.1); Sodium 141 mmol/L (136-145)
[2019-01-13] MEDS: Sodium Chloride 0.9% 1,000 ML IV SCH ×2 (05:42→10:28)
--- NOTE | 2019-01-13 08:00 | PRG ---
DATE OF SERVICE: 01/13/2019 SUBJECTIVE: Brigida is about the same. There has been no acute changes overnight. OBJECTIVE: VITAL SIGNS: On exam, temperature is 98.1, pulse 92, blood pressure 123/83, and O2 saturation 97%. NEUROLOGICAL: She will move her right foot when asked. HEENT: She has a left parietal EVD in place. NECK: Old tracheostomy scar. LUNGS: Clear. CARDIAC: S1 and S2. Regular. ABDOMEN: Soft and nontender. PEG tube noted. EXTREMITIES: No edema. LABORATORY DATA: White blood cell count 8.2, hematocrit 31.1, and platelet count 395. Sodium 141, potassium 3.8, chloride 106, CO2 of 27, BUN 9, creatinine 0.5, and glucose 95. She is growing Staph epidermidis of her spinal fluid. ASSESSMENT: 1. Central nervous system shunt infection. 2. History of aneurysmal clipping. 3. Recurrent episodes of hydrocephalus. PLAN: She is on Zyvox for coverage. She is being fed with bolus feeds. Her medical status is stable, awaiting further disposition from Neurosurgical Team. Job ID: [id number]
--- NOTE | 2019-01-13 09:10 | PDOC.PALCO ---
Palliative Care Consult - Consult Details Requesting Physician: Dr Rehman Reason for Consult: goals of care, family support, complex decision-making Family Members Present: None, called Lesa - Pertinent HPI 48 year old female who resides at a retirement secondary to vegetative state post intracerebral hemorrhage with decompressive craniotomy. 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 Right facial swelling was noted and patient was taken to the hospital for evaluation. It was decided to place a left frontal EVD, admitted for procedure and monitoring to ICU. - Social History Smoking Status: Never smoker Living Situation: retirement resident - Medications MAR Reviewed: Yes - Allergies Allergies/Adverse Reactions: Allergies Allergy/AdvReac Type Severity Reaction Status Date / Time piperacillin [From Zosyn] Allergy Severe Rash Verified 01/09/19 08:06 tazobactam [From Zosyn] Allergy Severe Rash Verified 01/09/19 08:06 vancomycin Allergy Severe Short of Verified 01/09/19 08:06 Breath codeine Allergy Verified 01/09/19 08:06 levofloxacin [From Levaquin] Allergy Verified 01/09/19 08:06 - Subjective non responsive. - ROS Non Response: due to mental status - Objective Vital Signs: Vital Signs - Most Recent Temp Pulse Resp BP Pulse Ox 98.1 F 94 117/86 98 01/13/19 04:00 01/12/19 20:56 01/12/19 20:56 01/12/19 19:10 Palliative Performance Scale: 20 - Physical Exam Constitutional: encephalitic, ill appearing HEENT: moist MMs, sclera anicteric Respiratory: unlabored breathing Cardiovascular: RRR Gastrointestinal: non-tender, positive bowel sounds Musculoskeletal: pulses present, diffuse muscle atrophy Deviation from normal: contracture right upper Deviation from normal: lests to left, no purposeful movement at time of assessment Skin: cap refill <2 seconds Deviation from normal: Pallor - Problem List (1) Shunt malfunction Code(s): T85.618A - BREAKDOWN (MECHANICAL) OF INTERNAL PROSTH DEV/GRFT, INIT Current Visit: Yes Status: Acute (2) Chronic static encephalopathy Code(s): G93.49 - OTHER ENCEPHALOPATHY Current Visit: Yes Status: Chronic (3) Palliative care encounter Code(s): Z51.5 - ENCOUNTER FOR PALLIATIVE CARE Current Visit: No Status: Acute (4) Physical deconditioning Code(s): R53.81 - OTHER MALAISE Current Visit: No Status: Acute (5) Encephalopathy Code(s): G93.40 - ENCEPHALOPATHY, UNSPECIFIED Current Visit: No Status: Chronic - Plan/Recommendations Plan: Patient is familiar with Palliative Care Team. Attempted to contact patient Aunt to arrange a family meeting to discuss complex situation, disease trajectory, and goal of care. Note left in room as well for family to contact PC. We will continue to follow. [30] minutes spent on this encounter with >50% of the time in counseling and coordination of care. Thank you for this very appropriate consult.
[2019-01-13] MEDS: Metoprolol Tartrate 25 MG TAB PER TUBE SCH ×2 (10:08→20:08)
[2019-01-13] MEDS: Glycopyrrolate 1 MG TAB PER TUBE SCH ×2 (10:08→20:08)
[2019-01-13] MEDS: Pantoprazole 40 MG GRANULES PACKET PER TUBE SCH (10:11)
[2019-01-13] MEDS: Erythromycin Base 0.5% Oint 1 GM TUBE R EYE SCH ×4 (10:12→20:10)
[2019-01-13] MEDS: Linezolid 600 MG in Premix Bag 1 BAG IVPB SCH ×2 (10:27→20:08)
--- NOTE | 2019-01-13 16:40 | PDOC.HOSPP ---
- Subjective Encounter Date: 01/13/19 Encounter Time: 13:00 Subjective: opens eyes, nonverbal, does not communicate - Objective Vital Signs & Weight: Vital Signs (12 hours) Temp Pulse Ox 01/13/19 12:00 97.8 F 01/13/19 08:00 98.4 F 97 Weight Admit Weight 146 lb 2.664 oz Weight 145 lb 1.027 oz Most Recent Monitor Data Heart Rate from ECG 88 NIBP 115/77 NIBP BP-Mean 89 Respiration from ECG 19 SpO2 98 I&O: 01/12/19 01/13/19 01/14/19 06:59 06:59 06:59 Intake Total 3900 5051 1016 Output Total 3490 3015 520 Balance 410 2036 496 Result Diagrams: 01/13/19 03:21 01/13/19 03:21 Additional Labs: Accuchecks 01/13/19 01/13/19 01/12/19 14:04 00:10 17:43 POC Glucose 149 H 88 105 Hospitalist ROS - Medication Medications: Active Medications Generic Name Dose Route Start Last Admin Trade Name Freq PRN Reason Stop Dose Admin Amlodipine Besylate 5 mg 01/09/19 21:00 01/12/19 20:56 Norvasc PER TUBE 5 mg HS ALAN Administration Erythromycin 0 gm 01/09/19 09:00 01/13/19 13:46 Erythromycin Base 0.5% Oint R EYE 1 applic QID ALAN Administration Glycopyrrolate 1 mg 01/09/19 09:00 01/13/19 10:08 Robinul PER TUBE 1 mg BID ALAN Administration Sodium Chloride 1,000 mls @ 75 mls/hr 01/08/19 23:45 01/13/19 10:28 Normal Saline 0.9% IV 1,000 mls .[id number] ALAN Administration Dextrose/Water 1,000 mls @ 0 mls/hr 01/09/19 11:08 01/10/19 17:02 D5w IV 1,000 mls .Q0M PRN Administration Hypoglycemia As Directed Linezolid 600 mg/ Device 300 mls @ 150 mls/hr 01/11/19 21:00 01/13/19 10:27 IVPB 300 mls Q12HR ALAN Administration Levetiracetam 750 mg/ Sodium 107.5 mls @ 215 mls/hr 01/12/19 10:00 01/13/19 10:20 Chloride IVPB 107.5 mls Q12H ALAN Administration Metoprolol Tartrate 25 mg 01/09/19 09:00 01/13/19 10:08 Lopressor PER TUBE 25 mg BID ALAN Administration Pantoprazole Sodium 40 mg 01/09/19 09:00 01/13/19 10:11 Protonix PER TUBE 40 mg DAILY ALAN Administration - Exam General Appearance: ill appearing General - other findings: evd+ Eye: anicteric sclera ENT: no oropharyngeal lesions, moist mucosa Neck: supple, no JVD Heart: RRR, no murmur Respiratory: no wheezes, no rales Gastrointestinal: soft, non-tender, non-distended, normal bowel sounds Gastrointestinal - other findings: peg+ Extremities: no cyanosis, no edema Neurological: hemiplegia, speech deficit Hosp A/P (1) Hydrocephalus Code(s): G91.9 - HYDROCEPHALUS, UNSPECIFIED Status: Acute Qualifiers: Hydrocephalus type: obstructive Qualified Code(s): G91.1 - Obstructive hydrocephalus (2) Chronic static encephalopathy Code(s): G93.49 - OTHER ENCEPHALOPATHY Status: Chronic (3) Dysphagia Code(s): R13.10 - DYSPHAGIA, UNSPECIFIED Status: Chronic Qualifiers: Dysphagia type: oropharyngeal phase Qualified Code(s): R13.12 - Dysphagia, oropharyngeal phase (4) Expressive aphasia Code(s): R47.01 - APHASIA Status: Chronic (5) Chronic anemia Code(s): D64.9 - ANEMIA, UNSPECIFIED Status: Chronic (6) DM2 (diabetes mellitus, type 2) Status: Chronic Qualifiers: Diabetes mellitus tank terminal gauger insulin use: without tank terminal gauger use (7) GERD (gastroesophageal reflux disease) Code(s): K21.9 - GASTRO-ESOPHAGEAL REFLUX DISEASE WITHOUT ESOPHAGITIS Status: Chronic Qualifiers: (8) HTN (hypertension) Code(s): I10 - ESSENTIAL (PRIMARY) HYPERTENSION Status: Chronic Qualifiers: Hypertension type: essential hypertension Qualified Code(s): I10 - Essential (primary) hypertension (9) Obesity (BMI 30.0-34.9) Code(s): E66.9 - OBESITY, UNSPECIFIED Status: Chronic (10) Seizure disorder Code(s): G40.909 - EPILEPSY, UNSP, NOT INTRACTABLE, WITHOUT STATUS EPILEPTICUS Status: Chronic - Plan is on zyvox q12h, has staph epidermidis in spinal fluid, needs repeat csf analysis and culture prior to removal of evd per . has chronic static encephalopathy, left hemiplegia, contractures, fft, peg feeds , snf resident, poor prognosis, palliative care consultation On increased dose of keppra, continue clonidine, norvasc, lopressor, protonix, iv fluids and jevity bolus peg feeds hemostable still has evd drain+
[2019-01-13] MEDS: Amlodipine 5 MG TAB PER TUBE SCH (20:08)
[2019-01-14] MEDS: Sodium Chloride 0.9% 1,000 ML IV SCH ×2 (00:57→08:13)
[2019-01-14 05:50] LABS: Phosphorus 3.2 mg/dL (2.3-4.7)
[2019-01-14 06:30] LABS: #Eosinphils 0.1 thou/uL (0.0-0.7); #Lymphocytes 1.3 thou/uL (1.20-3.40); #Monocytes 0.4 thou/uL (0.11-0.59); #Neutrophils 5.8 thou/uL (1.40-6.50); %Basophils 0.1 % (0.0-1.0); %Eosinophils 1.3 % (0.0-10.0); %Lymphocytes 17.6 % (21.0-51.0); %Monocytes 4.6 % (0.0-10.0); %Neutrophils 76.5 % (42.0-75.0); Mean Corpuscular HGB CONC 31.6 g/dL (32.0-36.0); Mean Corpuscular Hemoglobin 27.2 pg (27.0-31.0); Mean Platelet Volume 7.6 fL (7.4-10.4); Platelet Count 389 thou/uL (130-400); RBC Distribution Width 13.8 % (11.5-14.5); Red Blood Cell (RBC) Count 3.67 mill/uL (4.20-5.40); White Blood Cell (WBC) Count 7.6 thou/uL (4.8-10.8)
[2019-01-14 06:57] LABS: Chloride 109 mmol/L (98-107); Potassium 4.5 mmol/L (3.5-5.1); Sodium 142 mmol/L (136-145)
[2019-01-14 06:58] LABS: Calcium 8.9 mg/dL (7.8-10.44); Glucose 95 mg/dL (70-105)
[2019-01-14 06:59] LABS: Carbon Dioxide 21 mmol/L (22-29)
[2019-01-14 07:01] LABS: Calc. Creatinine Clearance 146 mL/min (70-130); Estimated GFR-MDRD Greater than 90
[2019-01-14 07:02] LABS: BUN (Urea Nitrogen) 9 mg/dL (7.0-18.7)
[2019-01-14 07:03] LABS: Magnesium 2.1 mg/dL (1.6-2.6)
[2019-01-14 07:17] LABS: Anion Gap 17 mmol/L (10-20)
[2019-01-14] MEDS ORDERED: Morphine 2 MG/ML SYRINGE SLOW IVP PRN ×2 (07:52→08:00)
[2019-01-14] MEDS ORDERED: Morphine 2 MG/ML SYRINGE SLOW IVP SCH (08:00)
--- NOTE | 2019-01-14 08:23 | PRG ---
DATE OF SERVICE: 01/14/2019 SUBJECTIVE: Ms. Norwood is about the same. Apparently, her EVD is clotted off and will be changed this morning. OBJECTIVE: VITAL SIGNS: Temperature 98.6, pulse 98, blood pressure 138/89, and O2 saturation 96%. Intake for 24 hours 4100, output 2675. HEENT: She has a left parietal EVD in place. NECK: No adenopathy or JVD. LUNGS: Clear anteriorly. CARDIAC: S1 and S2. Regular. ABDOMEN: Soft. EXTREMITIES: No edema. LABORATORY DATA: White blood cell count 7.6, hematocrit 31.5, and platelet count 389. Sodium 142, potassium 4.5, chloride 109, CO2 of 21, BUN 9, creatinine 0.5, and glucose 95. ASSESSMENT: 1. Hydrocephalus. 2. Altered mental status. 3. Central nervous system shunt infection. PLAN: The EVD will be changed. She is continuing antibiotics. She will stay in the ICU as long as the EVD is needed. Job ID: [id number]
[2019-01-14] MEDS: Glycopyrrolate 1 MG TAB PER TUBE SCH ×2 (10:13→21:00)
[2019-01-14] MEDS: Metoprolol Tartrate 25 MG TAB PER TUBE SCH ×2 (10:13→21:00)
[2019-01-14] MEDS: Pantoprazole 40 MG GRANULES PACKET PER TUBE SCH (10:13)
[2019-01-14] MEDS: Erythromycin Base 0.5% Oint 1 GM TUBE R EYE SCH ×4 (10:14→21:01)
[2019-01-14] MEDS: Linezolid 600 MG in Premix Bag 1 BAG IVPB SCH ×2 (10:14→21:28)
--- NOTE | 2019-01-14 16:17 | PDOC.HOSPP ---
- Subjective Encounter Date: 01/14/19 Encounter Time: 12:00 Subjective: had evd changed this am per staff awakens to touch, non verbal and does not follow verbal stimuli - Objective Vital Signs & Weight: Vital Signs (12 hours) Temp Pulse Ox 01/14/19 12:00 98.4 F 01/14/19 08:00 95 01/14/19 07:00 98.4 F 01/14/19 05:00 98.6 F Weight Admit Weight 146 lb 2.664 oz Weight 145 lb 1.027 oz Most Recent Monitor Data Heart Rate from ECG 91 NIBP 129/89 NIBP BP-Mean 102 Respiration from ECG 21 SpO2 97 I&O: 01/13/19 01/14/19 01/15/19 06:59 06:59 06:59 Intake Total 5051 4100 650 Output Total 3018 2675 1130 Balance 2037 2701 -231 Result Diagrams: 01/14/19 06:16 01/14/19 04:40 Additional Labs: Accuchecks 01/14/19 01/14/19 01/14/19 10:54 05:27 00:00 POC Glucose 164 H 104 120 H 01/13/19 18:10 POC Glucose 88 Hospitalist ROS - Medication Medications: Active Medications Generic Name Dose Route Start Last Admin Trade Name Freq PRN Reason Stop Dose Admin Amlodipine Besylate 5 mg 01/09/19 21:00 01/13/19 20:08 Norvasc PER TUBE 5 mg HS ALAN Administration Erythromycin 0 gm 01/09/19 09:00 01/14/19 14:08 Erythromycin Base 0.5% Oint R EYE 1 applic QID ALAN Administration Glycopyrrolate 1 mg 01/09/19 09:00 01/14/19 10:13 Robinul PER TUBE 1 mg BID ALAN Administration Sodium Chloride 1,000 mls @ 75 mls/hr 01/08/19 23:45 01/14/19 08:13 Normal Saline 0.9% IV 1,000 mls .[id number] ALAN Administration Dextrose/Water 1,000 mls @ 0 mls/hr 01/09/19 11:08 01/10/19 17:02 D5w IV 1,000 mls .Q0M PRN Administration Hypoglycemia As Directed Linezolid 600 mg/ Device 300 mls @ 150 mls/hr 01/11/19 21:00 01/14/19 10:14 IVPB 300 mls Q12HR ALAN Administration Levetiracetam 750 mg/ Sodium 107.5 mls @ 215 mls/hr 01/12/19 10:00 01/14/19 11:33 Chloride IVPB 107.5 mls Q12H ALAN Administration Metoprolol Tartrate 25 mg 01/09/19 09:00 01/14/19 10:13 Lopressor PER TUBE 25 mg BID ALAN Administration Pantoprazole Sodium 40 mg 01/09/19 09:00 01/14/19 10:13 Protonix PER TUBE 40 mg DAILY ALAN Administration - Exam Eye: anicteric sclera ENT: no oropharyngeal lesions, dry oral mucosa Neck: supple, no JVD Heart: RRR, no murmur Respiratory: no wheezes, no rales Gastrointestinal: soft, non-tender, non-distended, normal bowel sounds Gastrointestinal - other findings: peg+ Extremities: no cyanosis, no edema Neurological: hemiplegia, speech deficit, vision deficit Hosp A/P (1) Hydrocephalus Code(s): G91.9 - HYDROCEPHALUS, UNSPECIFIED Status: Acute Qualifiers: Hydrocephalus type: obstructive Qualified Code(s): G91.1 - Obstructive hydrocephalus (2) Chronic static encephalopathy Code(s): G93.49 - OTHER ENCEPHALOPATHY Status: Chronic (3) Dysphagia Code(s): R13.10 - DYSPHAGIA, UNSPECIFIED Status: Chronic Qualifiers: Dysphagia type: oropharyngeal phase Qualified Code(s): R13.12 - Dysphagia, oropharyngeal phase (4) Expressive aphasia Code(s): R47.01 - APHASIA Status: Chronic (5) Chronic anemia Code(s): D64.9 - ANEMIA, UNSPECIFIED Status: Chronic (6) DM2 (diabetes mellitus, type 2) Status: Chronic Qualifiers: Diabetes mellitus accounts receivable 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 insulin use: without long-term use (7) GERD (gastroesophageal reflux disease) Code(s): K21.9 - GASTRO-ESOPHAGEAL REFLUX DISEASE WITHOUT ESOPHAGITIS Status: Chronic Qualifiers: (8) HTN (hypertension) Code(s): I10 - ESSENTIAL (PRIMARY) HYPERTENSION Status: Chronic Qualifiers: Hypertension type: essential hypertension Qualified Code(s): I10 - Essential (primary) hypertension (9) Obesity (BMI 30.0-34.9) Code(s): E66.9 - OBESITY, UNSPECIFIED Status: Chronic (10) Seizure disorder Code(s): G40.909 - EPILEPSY, UNSP, NOT INTRACTABLE, WITHOUT STATUS EPILEPTICUS Status: Chronic - Plan Had change of EVD 01/14/2019 is on zyvox q12h, has staph epidermidis in spinal fluid, needs repeat csf analysis and culture prior to removal of evd per . has chronic static encephalopathy, left hemiplegia, contractures, fft, peg feeds , snf resident, poor prognosis, palliative care to discuss goals of care/code status. On increased dose of keppra, continue clonidine, norvasc, lopressor, protonix, iv fluids and jevity bolus peg feeds hemostable
[2019-01-14] MEDS: Amlodipine 5 MG TAB PER TUBE SCH (21:00)
[2019-01-15] MEDS: Sodium Chloride 0.9% 1,000 ML IV SCH ×2 (01:30→14:33)
[2019-01-15 05:46] LABS: Phosphorus 3.4 mg/dL (2.3-4.7)
[2019-01-15 05:56] LABS: Anion Gap 15 mmol/L (10-20); BUN (Urea Nitrogen) 9 mg/dL (7.0-18.7); Calc. Creatinine Clearance 152 mL/min (70-130); Calcium 8.8 mg/dL (7.8-10.44); Carbon Dioxide 24 mmol/L (22-29); Chloride 107 mmol/L (98-107); Estimated GFR-MDRD Greater than 90; Glucose 94 mg/dL (70-105); Potassium 4.1 mmol/L (3.5-5.1); Sodium 142 mmol/L (136-145)
[2019-01-15] MEDS: Metoprolol Tartrate 25 MG TAB PER TUBE SCH ×2 (07:59→20:52)
[2019-01-15] MEDS: Linezolid 600 MG in Premix Bag 1 BAG IVPB SCH ×2 (07:59→20:50)
[2019-01-15] MEDS: Pantoprazole 40 MG GRANULES PACKET PER TUBE SCH (07:59)
[2019-01-15] MEDS: Glycopyrrolate 1 MG TAB PER TUBE SCH ×2 (07:59→20:52)
[2019-01-15] MEDS: Erythromycin Base 0.5% Oint 1 GM TUBE R EYE SCH ×4 (08:02→20:52)
[2019-01-15 08:34] LABS: #Eosinphils 0.1 thou/uL (0.0-0.7); #Lymphocytes 1.9 thou/uL (1.20-3.40); #Monocytes 0.3 thou/uL (0.11-0.59); #Neutrophils 4.3 thou/uL (1.40-6.50); %Basophils 0.1 % (0.0-1.0); %Eosinophils 1.9 % (0.0-10.0); %Lymphocytes 29.1 % (21.0-51.0); %Monocytes 5.1 % (0.0-10.0); %Neutrophils 63.8 % (42.0-75.0); Hemoglobin 9.9 g/dL (12.0-16.0); Mean Corpuscular HGB CONC 31.2 g/dL (32.0-36.0); Mean Corpuscular Hemoglobin 27.2 pg (27.0-31.0); Mean Corpuscular Volume 87.1 fL (78.0-98.0); Mean Platelet Volume 7.6 fL (7.4-10.4); Platelet Count 396 thou/uL (130-400); RBC Distribution Width 13.8 % (11.5-14.5); Red Blood Cell (RBC) Count 3.65 mill/uL (4.20-5.40); White Blood Cell (WBC) Count 6.7 thou/uL (4.8-10.8)
--- NOTE | 2019-01-15 09:06 | PRG ---
DATE OF SERVICE: 01/15/2019 SUBJECTIVE: She remains in the ICU with EVD in place. She is noncommunicative, does not appear to be any gross changes overnight. OBJECTIVE: VITAL SIGNS: Temperature 97.9, pulse 93, blood pressure 134/92, O2 saturation 99%. HEENT: Left parietal EVD in place. NECK: No JVD. Old tracheostomy scar noted. LUNGS: Clear. CARDIAC: S1, S2. Regular. ABDOMEN: Soft. EXTREMITIES: No edema. LABORATORY DATA: White blood cell count 6.7, hematocrit 31.8, and platelet count 396. Sodium 142, potassium 4.1, chloride 107, CO2 of 24, BUN 9, creatinine 0.4, and glucose 94. ASSESSMENT: 1. Shunt infection. 2. Previous history of aneurysmal bleed with clipping. PLAN: Continue antibiotics and supportive care. She will need to remain in the ICU as long as the EVD is in place. Job ID: [id number]
--- NOTE | 2019-01-15 09:12 | CT ---
PRELIMINARY REPORT/[facility]/EMERGENCY AFTER HOURS PROCEDURE: Addendum: 1. Small amount of right-sided pneumocephalus was not present on the examinations of 01/10/2019 and 1 03/12/2018. This could still be related to recent shunt revision; however, close monitoring is recomme nded. 2. Correction of typographical error: Findings: Unchanged hydrocephalus involving at least the lateral and third ventricles. Unchanged pos ition of ventriculostomy tubes with a left-sided tube terminating in the right lateral ventricle and a posteriorly placed catheter terminating in the region of the left lateral ventricle, one on each si de. Addendum electronically signed by Lubna Patel MD on January 15, 2019 7:45:28 AM HE[employer] INSURANCE SALES AGENT CT BRAIN WO CON History: F/U HYDROCEPHALUS Comparison: CT\[place] - CT BRAIN WO CON - 01/10/2019 11:49 AM HEALTH INSURANCE SALES AGENT Technique: Multiple axial sections were obtained from the brain without administration of intravenous contrast. Coronal and sagittal reconstruction images were obtained as well. Findings: Unchanged hydrocephalus involving at least the lateral and third ventricles. Unchanged pos ition of ventriculostomy tubes with a left-sided tube terminating in the right lateral ventricle and to posterior replaced catheter is terminating in the left lateral ventricle, one from each side. No intracranial hemorrhage or mass. No CT evidence for acute territorial infarct appreciated. No midline shift or extra-axial collections. Visualized orbits are normal. Visualized paranasal sinuses and ma stoid air cells are clear. Evidence of previous craniotomy. Small amount of pneumocephalus is now s een in the right lateral ventricle. Impression: Unchanged hydrocephalus. ELECTRONICALLY SIGNED BY: Lubna Patel MD Jan 15, 2019 4:23:12 AM HEALTH INSURANCE SALES AGENT This report is intended for review by the ordering physician only, in accordance of law. If you recei ve this report in error, please call [facility] at [phone]. EMERGENCY AFTER HOURS BRAIN CT WITHOUT IV CONTRAST: Date: 01/15/19 Time: 0333 hours COMPARISON: 01/10/19. IMPRESSION: Persistent, severe, primarily right-sided lateral ventricular dilatation with numerous shunt tubes in place. Minimal air in the right lateral ventricle. Right craniotomy changes. Stable appearance from 01/10/19. Report in agreement with preliminary report. POS: [facility]
[2019-01-15] MEDS ORDERED: Dextrose 5% in Water 1,000 ML IV PRN (09:59)
[2019-01-15] MEDS ORDERED: Dextrose 50% Abboject 50 ML SYRINGE IVP PRN (09:59)
[2019-01-15] MEDS ORDERED: HumaLOG 300 UNITS/3 ML VIAL SC PRN (09:59)
--- NOTE | 2019-01-15 13:50 | PDOC.HOSPP ---
- Subjective Encounter Date: 01/15/19 Encounter Time: 12:00 Subjective: non verbal, does not follow verbal stimuli, is closing her eyes - Objective Vital Signs & Weight: Vital Signs (12 hours) Temp Pulse Ox 01/15/19 12:00 97.9 F 01/15/19 08:00 97 01/15/19 07:00 97.9 F 01/15/19 04:00 97.9 F Weight Admit Weight 146 lb 2.664 oz Weight 145 lb 1.027 oz Most Recent Monitor Data Heart Rate from ECG 84 NIBP 114/70 NIBP BP-Mean 84 Respiration from ECG 19 SpO2 97 I&O: 01/14/19 01/15/19 01/16/19 06:59 06:59 06:59 Intake Total 4100 3958 814 Output Total 2145 2516 1415 Balance 1425 722 601 Result Diagrams: 01/15/19 07:53 01/15/19 05:30 Additional Labs: Accuchecks 01/15/19 01/14/19 01/14/19 04:32 22:31 17:02 POC Glucose 113 H 157 H 106 Hospitalist ROS - Medication Medications: Active Medications Generic Name Dose Route Start Last Admin Trade Name Freq PRN Reason Stop Dose Admin Amlodipine Besylate 5 mg 01/09/19 21:00 01/14/19 21:00 Norvasc PER TUBE 5 mg HS ALAN Administration Erythromycin 0 gm 01/09/19 09:00 01/15/19 12:58 Erythromycin Base 0.5% Oint R EYE 1 applic QID ALAN Administration Glycopyrrolate 1 mg 01/09/19 09:00 01/15/19 07:59 Robinul PER TUBE 1 mg BID ALAN Administration Sodium Chloride 1,000 mls @ 75 mls/hr 01/08/19 23:45 01/15/19 01:30 Normal Saline 0.9% IV 1,000 mls .[id number] ALAN Administration Linezolid 600 mg/ Device 300 mls @ 150 mls/hr 01/11/19 21:00 01/15/19 07:59 IVPB 300 mls Q12HR ALAN Administration Levetiracetam 750 mg/ Sodium 107.5 mls @ 215 mls/hr 01/12/19 10:00 01/15/19 09:20 Chloride IVPB 107.5 mls Q12H ALAN Administration Metoprolol Tartrate 25 mg 01/09/19 09:00 01/15/19 07:59 Lopressor PER TUBE 25 mg BID ALAN Administration Pantoprazole Sodium 40 mg 01/09/19 09:00 01/15/19 07:59 Protonix PER TUBE 40 mg DAILY ALAN Administration - Exam Eye: anicteric sclera ENT: no oropharyngeal lesions, dry oral mucosa Neck: supple, no JVD Heart: RRR, no murmur Respiratory: no wheezes, no rales Gastrointestinal: soft, non-tender, non-distended, normal bowel sounds Gastrointestinal - other findings: peg+ Extremities: no cyanosis, no edema Neurological: hemiplegia, speech deficit, vision deficit Hosp A/P (1) Hydrocephalus Code(s): G91.9 - HYDROCEPHALUS, UNSPECIFIED Status: Acute Qualifiers: Hydrocephalus type: obstructive Qualified Code(s): G91.1 - Obstructive hydrocephalus (2) Chronic static encephalopathy Code(s): G93.49 - OTHER ENCEPHALOPATHY Status: Chronic (3) Dysphagia Code(s): R13.10 - DYSPHAGIA, UNSPECIFIED Status: Chronic Qualifiers: Dysphagia type: oropharyngeal phase Qualified Code(s): R13.12 - Dysphagia, oropharyngeal phase (4) Expressive aphasia Code(s): R47.01 - APHASIA Status: Chronic (5) Chronic anemia Code(s): D64.9 - ANEMIA, UNSPECIFIED Status: Chronic (6) DM2 (diabetes mellitus, type 2) Status: Chronic Qualifiers: Diabetes mellitus correction insulin use: without terminal block assembler use (7) GERD (gastroesophageal reflux disease) Code(s): K21.9 - GASTRO-ESOPHAGEAL REFLUX DISEASE WITHOUT ESOPHAGITIS Status: Chronic Qualifiers: (8) HTN (hypertension) Code(s): I10 - ESSENTIAL (PRIMARY) HYPERTENSION Status: Chronic Qualifiers: Hypertension type: essential hypertension Qualified Code(s): I10 - Essential (primary) hypertension (9) Obesity (BMI 30.0-34.9) Code(s): E66.9 - OBESITY, UNSPECIFIED Status: Chronic (10) Seizure disorder Code(s): G40.909 - EPILEPSY, UNSP, NOT INTRACTABLE, WITHOUT STATUS EPILEPTICUS Status: Chronic - Plan Had change of EVD on 01/14/2019 is on zyvox q12h, has staph epidermidis in spinal fluid, needs repeat csf analysis and culture prior to removal of evd per . has chronic static encephalopathy, left hemiplegia, contractures, fft, peg feeds , snf resident, poor prognosis, palliative care to discuss goals of care/code status. On increased dose of keppra, continue clonidine, norvasc, lopressor, protonix, iv fluids and glucerna bolus peg feeds, sliding scale for dm hemostable
--- NOTE | 2019-01-15 14:48 | PQF ---
CLINICAL DOCUMENTATION IMPROVEMENT CLARIFICATION FORM: ICD-10 Updated PLEASE DO AN ADDENDUM TO THE PROGRESS NOTE WITH ANY DOCUMENTATION UPDATES OR ADDITIONS AND CARRY THROUGH TO DC SUMMARY. THANK YOU. DATE: 01/15/19 ATTN: DR. PEREIRA Please exercise your independent, professional judgment in responding to the clarification form. Clinical indicators are provided on the bottom of this form for your review Please check appropriate box(s): [x ] Hemiplegia left Specify: [ x ] Non dominant side [ ] Dominant side Status: [x ] Complete [ ] Incomplete [ ] Paraplegia Specify: [ ] Non dominant side [ ] Dominant side Status: [ ] Complete [ ] Incomplete [ ] Quadriplegia [ ] Functional Quadriplegia (specify underlying cause) [ ] Weakness (please specify anatomical area) Specify: [ ] Non dominant side [ ] Dominant side [ ] Other diagnosis [ ] Unable to determine In addition, please specify: Present on Admission (POA): [ x ] Yes [ ] No [ ] Unable to determine CLINICAL INDICATORS - SIGNS / SYMPTOMS / LABS/ RESULTS AND LOCATION IN MR NURSING ASSESSMENT 01/14: "MAXIMUM ASSISTANCE" "CONTRACTED ON LEFT SIDE" "SHE DOES NOT FOLLOW ANY TYPE OF COMMANDS " (H&P 01/09) "BEDBOUND STATUS" (CONSULTATION REPORT 01/09) RISKS: H/O LARGE RIGHT INTRAPARENCHYMAL HEMORRHAGE (H&P 01/14) HYDROCEPHALUS (PROGRESS NOTE 01/15) CHRONIC STATIC ENCEPHALOPATHY (PROGRESS NOTE 01/15) TREATMENT: TURN Q 2 HOURS PER NURSING STAFF (NURSING ASSESSMENT 01/14) PT/OT FOR RANGE OF MOTION EXERCISES (CONSULTATION REPORT 01/15) FEEDING PER G TUBE PER NURSING STAFF (CONSULTATION REPORT 01/15) (This form is maintained as a part of the permanent medical record) SAP Clinical Systems Analyst [employer] Winform Viewer 2015 [employer]. All Rights Reserved JACQUELINE [email or web address] Office: [phone] [facility]
--- NOTE | 2019-01-15 16:54 | PRG ---
DATE OF SERVICE: 01/14/2019 SUBJECTIVE: Ms. Norwood this morning has unfortunately had persistent what appears to be occlusion ventricular drain. I tried to flush multiple times as well as move the Phan drain to the floor to attempt to try to encourage her and do some form of drainage, but this does not happen. Her pseudomeningocele skull flap tissue underlying, remains soft and is not under any significant tension. However, the skull flap continues to be rather protuberant. Last week, we drained on two occasions, 50 mL and 30 mL and was able to reduce some of the intracerebral fluid volume and decrease some of this protuberance. Unfortunately, according to the nurse, this occlusion has been persistent since over the weekend. It appears that more or less back to square one in terms of the amount of spinal CSF within the ventricles. We will plan to revise EVD this morning and try to restart drainage again. Job ID: [id number]
--- NOTE | 2019-01-15 17:03 | PRG ---
DATE OF SERVICE: 01/15/2019 Ms. Norwood this morning has had significant CSF drainage since overnight. We made adjustments to -5 and then ultimately to -10 around 10:30 last night This resulted in sudden rapid drainage of CSF totaling 70 mL. This was readjusted back to 0, and CSF over the remainder of the night remained below 15 mL. This morning, her skull flap is very well decompressed and near normal in terms of anatomic position. Swelling on her cheek and face has also dramatically reduced. She continues to have some rapid alternating eye movements and eyelid twitches, which she has had in the past, and so this certainly may represent seizure activity, but it also may be part of her normal neurologic state. CSF continues to be normal in appearance, clear, and nonturbid. I will discuss plan with Dr. Jeong later today. Job ID: [id number]
[2019-01-15] MEDS: Amlodipine 5 MG TAB PER TUBE SCH (20:50)
--- NOTE | 2019-01-15 22:56 | PRG ---
DATE OF SERVICE: 01/15/2019 SUBJECTIVE: Ms. Norwood remains in the ICU in her baseline state of her neurologic exam. She has a ventriculostomy in place, which drains clear fluid when at negative pressures. We have had it at -5 and - 10 at various times over the course of last 24 hours. She has had a repeat CT examination, which shows improvement overall in the spinal fluid volume. I had discussions today with both Dr. Villegas and with palliative care. The plan is to withdraw spinal fluid for sampling tomorrow morning. My plan is then to clamp the EVD and likely remove it. I have had discussions with the family and they are in agreement that there will be no additional surgical procedures performed on Ms. Norwood. Palliative Care Service is also working closely with her family, which for the most part has been 2 aunts who have been present off and on over the last couple of years. Ms. Norwood's neurologic state is poor as is her long-term prognosis. This has been unchanged as compared to the last many months. I believe she would be best suited in the hospice environment. I do not believe any additional surgical procedures are likely to add any incremental benefit to her well-being. Job ID: [id number]
[2019-01-16] MEDS: Sodium Chloride 0.9% 1,000 ML IV SCH ×2 (04:45→17:04)
[2019-01-16 05:26] LABS: #Eosinphils 0.2 thou/uL (0.0-0.7); #Lymphocytes 1.9 thou/uL (1.20-3.40); #Monocytes 0.3 thou/uL (0.11-0.59); #Neutrophils 5.4 thou/uL (1.40-6.50); %Lymphocytes 24.7 % (21.0-51.0); %Monocytes 3.9 % (0.0-10.0); %Neutrophils 69.4 % (42.0-75.0); Hemoglobin 10.3 g/dL (12.0-16.0); Mean Corpuscular HGB CONC 32.2 g/dL (32.0-36.0); Mean Corpuscular Volume 86.8 fL (78.0-98.0); Mean Platelet Volume 7.4 fL (7.4-10.4); Platelet Count 414 thou/uL (130-400); RBC Distribution Width 13.9 % (11.5-14.5); Red Blood Cell (RBC) Count 3.68 mill/uL (4.20-5.40); White Blood Cell (WBC) Count 7.8 thou/uL (4.8-10.8)
[2019-01-16 05:34] LABS: Phosphorus 3.9 mg/dL (2.3-4.7)
[2019-01-16 05:36] LABS: Anion Gap 10 mmol/L (10-20); BUN (Urea Nitrogen) 9 mg/dL (7.0-18.7); Calc. Creatinine Clearance 149 mL/min (70-130); Calcium 9.3 mg/dL (7.8-10.44); Carbon Dioxide 31 mmol/L (22-29); Chloride 106 mmol/L (98-107); Estimated GFR-MDRD Greater than 90; Glucose 94 mg/dL (70-105); Magnesium 2.1 mg/dL (1.6-2.6); Potassium 3.9 mmol/L (3.5-5.1); Sodium 143 mmol/L (136-145)
--- NOTE | 2019-01-16 08:17 | PRG ---
DATE OF SERVICE: 01/16/2019 Ms. Norwodo this morning is stable neurologically. Her skull flap continues to remain in better anatomic position than previously. She has had continued drainage with the EVD open and set at 0, although quite variable. There have been a few hours where it is in 14-15 range, and a few hours where it did not drain, and then more recently there was an hour where it was 4 and 9. We will continue to leave it open. Plans today are to discuss further with family and Palliative Care about further end of life recommendations given that the patient's prognosis continues to be rather poor with no additional interventions indicated. Job ID: [id number]
--- NOTE | 2019-01-16 08:28 | PRG ---
DATE OF SERVICE: 01/16/2019 SUBJECTIVE: Brigida remains in the ICU with an EVD in place. There have been no acute changes, otherwise. OBJECTIVE: VITAL SIGNS: On exam, temperature is 98.5, pulse 96, blood pressure 122/87, and O2 saturation 96%. HEENT: She still has the EVD in place in the left parietal area. NECK: No JVD. CHEST: Clear. CARDIAC: S1 and S2. Regular. ABDOMEN: Soft. EXTREMITIES: No edema. LABORATORY DATA: White blood cell count 7.8, hematocrit 31.9, and platelet count 414. Sodium 143, potassium 3.9, BUN 9, creatinine 0.5, and glucose 94. ASSESSMENT: 1. Hydrocephalus. 2. Infected ventriculoperitoneal shunt. PLAN: 1. She is continuing antibiotic therapy. 2. She will remain in the ICU until the EVD has been removed. I will go ahead and stop her continuous labs. Job ID: [id number]
[2019-01-16] MEDS: Metoprolol Tartrate 25 MG TAB PER TUBE SCH ×2 (09:20→21:04)
[2019-01-16] MEDS: Glycopyrrolate 1 MG TAB PER TUBE SCH ×2 (09:21→21:05)
[2019-01-16] MEDS: Pantoprazole 40 MG GRANULES PACKET PER TUBE SCH (09:21)
[2019-01-16] MEDS: Linezolid 600 MG in Premix Bag 1 BAG IVPB SCH ×2 (09:21→21:09)
[2019-01-16] MEDS: Erythromycin Base 0.5% Oint 1 GM TUBE R EYE SCH ×4 (09:21→21:04)
--- NOTE | 2019-01-16 11:35 | PDOC.PALPN ---
Palliative Progress Note - Subjective non responsive - Objective Vital Signs: Vital Signs - Most Recent Temp Pulse Resp BP Pulse Ox 98.6 F 92 117/81 96 01/16/19 08:00 01/15/19 20:50 01/15/19 20:50 01/16/19 08:00 - Physical Exam Constitutional: encephalitic, ill appearing HEENT: moist MMs Respiratory: no wheezing, unlabored breathing Cardiovascular: RRR Gastrointestinal: incontinent Deviation from normal: nerological deficits Skin: cap refill <2 seconds, normal turgor Deviation from normal: non responsive - Assessment (1) Shunt malfunction Code(s): T85.618A - BREAKDOWN (MECHANICAL) OF INTERNAL PROSTH DEV/GRFT, INIT Current Visit: Yes Status: Acute (2) Chronic static encephalopathy Code(s): G93.49 - OTHER ENCEPHALOPATHY Current Visit: Yes Status: Chronic (3) Palliative care encounter Code(s): Z51.5 - ENCOUNTER FOR PALLIATIVE CARE Current Visit: No Status: Acute (4) Physical deconditioning Code(s): R53.81 - OTHER MALAISE Current Visit: No Status: Acute (5) Encephalopathy Code(s): G93.40 - ENCEPHALOPATHY, UNSPECIFIED Current Visit: No Status: Chronic - Plan Plan: Spoke with Lesa Carbone via phone and patient other aunt Zoila. Patients children have deferred decisions to Lesa. Revisited prognosis and longterm outcome being grave. Discussed care and optimal end of life for patient. Lesa is in agreement for patient to transition to hospice at this time. They have [facility]. Neuro/Hospitalist/Pulmonary physicians notified. CM Notified. [40] minutes spent on this encounter with >50% of the time in counseling and coordination of care. - ROS Non Response: due to mental status
--- NOTE | 2019-01-16 12:31 | PDOC.HOSPP ---
- Subjective Encounter Date: 01/16/19 Encounter Time: 11:45 non-verbal Subjective: not in distress - Objective Vital Signs & Weight: Vital Signs (12 hours) Temp Pulse Ox 01/16/19 08:00 98.6 F 96 01/16/19 05:00 98.5 F 01/16/19 01:45 97 Weight Admit Weight 146 lb 2.664 oz Weight 145 lb 1.027 oz Most Recent Monitor Data Heart Rate from ECG 94 NIBP 134/83 NIBP BP-Mean 100 Respiration from ECG 21 SpO2 98 I&O: 01/15/19 01/16/19 01/17/19 06:59 06:59 06:59 Intake Total 3959 410 715 Output Total 5357 0873 369 Balance 722 -827 346 Result Diagrams: 01/16/19 04:53 01/16/19 04:52 Additional Labs: Accuchecks 01/16/19 01/16/19 01/15/19 10:42 04:46 22:14 POC Glucose 160 H 102 136 H 01/15/19 01/15/19 15:42 09:44 POC Glucose 98 202 H Hospitalist ROS - Medication Medications: Active Medications Generic Name Dose Route Start Last Admin Trade Name Freq PRN Reason Stop Dose Admin Amlodipine Besylate 5 mg 01/09/19 21:00 01/15/19 20:50 Norvasc PER TUBE 5 mg HS ALAN Administration Erythromycin 0 gm 01/09/19 09:00 01/16/19 09:21 Erythromycin Base 0.5% Oint R EYE 1 applic QID ALAN Administration Glycopyrrolate 1 mg 01/09/19 09:00 01/16/19 09:21 Robinul PER TUBE 1 mg BID ALAN Administration Sodium Chloride 1,000 mls @ 75 mls/hr 01/08/19 23:45 01/16/19 04:45 Normal Saline 0.9% IV 1,000 mls .[id number] ALAN Administration Linezolid 600 mg/ Device 300 mls @ 150 mls/hr 01/11/19 21:00 01/16/19 09:21 IVPB 300 mls Q12HR ALAN Administration Levetiracetam 750 mg/ Sodium 107.5 mls @ 215 mls/hr 01/12/19 10:00 01/16/19 09:53 Chloride IVPB 107.5 mls Q12H ALAN Administration Insulin Human Lispro 0 units 01/15/19 09:59 01/16/19 10:43 Humalog SC 2 unit .MILD SLIDING SCALE PRN Administration MILD SLIDING SCALE Protocol Metoprolol Tartrate 25 mg 01/09/19 09:00 01/16/19 09:20 Lopressor PER TUBE 25 mg BID ALAN Administration Pantoprazole Sodium 40 mg 01/09/19 09:00 01/16/19 09:21 Protonix PER TUBE 40 mg DAILY ALAN Administration - Exam Eye: anicteric sclera ENT: no oropharyngeal lesions, dry oral mucosa Neck: supple, no JVD Heart: RRR, no murmur Respiratory: no wheezes, no rales Gastrointestinal: soft, non-distended, normal bowel sounds Gastrointestinal - other findings: peg+ Extremities: no clubbing, no edema Neurological: hemiplegia, speech deficit, vision deficit Hosp A/P (1) Hydrocephalus Code(s): G91.9 - HYDROCEPHALUS, UNSPECIFIED Status: Acute Qualifiers: Hydrocephalus type: obstructive Qualified Code(s): G91.1 - Obstructive hydrocephalus (2) Chronic static encephalopathy Code(s): G93.49 - OTHER ENCEPHALOPATHY Status: Chronic (3) Dysphagia Code(s): R13.10 - DYSPHAGIA, UNSPECIFIED Status: Chronic Qualifiers: Dysphagia type: oropharyngeal phase Qualified Code(s): R13.12 - Dysphagia, oropharyngeal phase (4) Expressive aphasia Code(s): R47.01 - APHASIA Status: Chronic (5) Chronic anemia Code(s): D64.9 - ANEMIA, UNSPECIFIED Status: Chronic (6) DM2 (diabetes mellitus, type 2) Status: Chronic Qualifiers: Diabetes mellitus intermediate project manager insulin use: without long-term use (7) GERD (gastroesophageal reflux disease) Code(s): K21.9 - GASTRO-ESOPHAGEAL REFLUX DISEASE WITHOUT ESOPHAGITIS Status: Chronic Qualifiers: (8) HTN (hypertension) Code(s): I10 - ESSENTIAL (PRIMARY) HYPERTENSION Status: Chronic Qualifiers: Hypertension type: essential hypertension Qualified Code(s): I10 - Essential (primary) hypertension (9) Obesity (BMI 30.0-34.9) Code(s): E66.9 - OBESITY, UNSPECIFIED Status: Chronic (10) Seizure disorder Code(s): G40.909 - EPILEPSY, UNSP, NOT INTRACTABLE, WITHOUT STATUS EPILEPTICUS Status: Chronic - Plan Had change of EVD on 01/14/2019 is on zyvox q12h, has staph epidermidis in spinal fluid, needs repeat csf analysis and culture prior to removal of evd per . has chronic static encephalopathy, left hemiplegia, contractures, fft, peg feeds , snf resident, poor prognosis, palliative care. Is for hospice per palliative care conversation with family. On increased dose of keppra, continue clonidine, norvasc, lopressor, protonix, iv fluids and glucerna bolus peg feeds, sliding scale for dm hemostable
[2019-01-16] MEDS: Amlodipine 5 MG TAB PER TUBE SCH (21:04)
[2019-01-16 21:06] VITALS: BP 121/80
[2019-01-17] MEDS: Sodium Chloride 0.9% 1,000 ML IV SCH (08:04)
--- NOTE | 2019-01-17 08:33 | PRG ---
DATE OF SERVICE: 01/17/2019 SUBJECTIVE: Her EVD was removed today. She is about the same. OBJECTIVE: VITAL SIGNS: Temperature is 98.5, pulse 93, blood pressure 127/84, and O2 saturation is 96%. HEENT: Unchanged. NECK: Supple. Tracheostomy scar noted. LUNGS: Clear. CARDIAC: S1 and S2. Regular. ABDOMEN: Soft. EXTREMITIES: No edema. ASSESSMENT: Obstructive hydrocephalus with infected shunt. PLAN: The family has opted to enter the patient into hospice care. I agree with that. I have no further recommendations, and we will sign off. Job ID: [id number]
[2019-01-17] MEDS: Metoprolol Tartrate 25 MG TAB PER TUBE SCH (09:30)
[2019-01-17] MEDS: Glycopyrrolate 1 MG TAB PER TUBE SCH (09:30)
[2019-01-17] MEDS: Linezolid 600 MG in Premix Bag 1 BAG IVPB SCH (09:31)
[2019-01-17] MEDS: Erythromycin Base 0.5% Oint 1 GM TUBE R EYE SCH ×2 (09:34→11:43)
[2019-01-17] MEDS: Pantoprazole 40 MG GRANULES PACKET PER TUBE SCH (09:34)
--- NOTE | 2019-01-17 10:56 | PRG ---
DATE OF SERVICE: 01/17/2019 Ms. Norwood remains in the ICU. The family has made a decision to move towards [facility]. She will be discharged today back to [facility], where they will resume hospice care. The ventricular drain has been removed. There is no sign of leakage upon my examination this morning. Ms. Norwood neurologically has been stable throughout her hospitalization. Any followup arrangements with our service will be made after she leaves the hospital. I have talked to both Dr. Rehman as well as the Palliative Care nurse practitioner. I will also reach out her aunts today as well. Job ID: [id number]
--- NOTE | 2019-01-17 14:33 | PDOC.PALFU ---
Palliative Care Follow-up Note Met with patient aunt "Zoila". Discussed plan to go to [facility] and have hospice assume care of patient. Teaching in relation to symptom management of chronic condition. Discussed DNAR status. Call placed x 2 to Lesa the aunt who is MPOA. Left messages for her to return call to discuss resuscitation and OOHDNAR.
[2019-01-17 15:04] VITALS: TEMP 98.4
--- NOTE | 2019-01-17 15:19 | PDOC.HOSPP ---
- Subjective Encounter Date: 01/17/19 Encounter Time: 10:00 Subjective: not in distress, non verbal - Objective Vital Signs & Weight: Vital Signs (12 hours) Temp Pulse Ox 01/17/19 15:00 98.4 F 01/17/19 11:00 97.9 F 01/17/19 08:00 98 01/17/19 07:00 98.4 F Weight Admit Weight 146 lb 2.664 oz Weight 145 lb 1.027 oz Most Recent Monitor Data Heart Rate from ECG 90 NIBP 123/82 NIBP BP-Mean 95 Respiration from ECG 19 SpO2 98 I&O: 01/16/19 01/17/19 01/18/19 06:59 06:59 06:59 Intake Total 4105 3833 1690 Output Total 4932 2940 905 Balance -827 893 785 Result Diagrams: 01/16/19 04:53 01/16/19 04:52 Additional Labs: Accuchecks 01/17/19 01/17/19 01/16/19 12:41 05:26 22:18 POC Glucose 116 H 98 131 H 01/16/19 16:16 POC Glucose 98 - Exam General Appearance: ill appearing Eye: anicteric sclera ENT: no oropharyngeal lesions, moist mucosa Neck: supple, no JVD Heart: RRR, no murmur Respiratory: no wheezes, no rales Gastrointestinal: soft, non-tender, non-distended, normal bowel sounds Gastrointestinal - other findings: peg+ Extremities: no cyanosis, no edema Neurological: hemiplegia, speech deficit, vision deficit Hosp A/P (1) Hydrocephalus Code(s): G91.9 - HYDROCEPHALUS, UNSPECIFIED Status: Acute Qualifiers: Hydrocephalus type: obstructive Qualified Code(s): G91.1 - Obstructive hydrocephalus (2) Chronic static encephalopathy Code(s): G93.49 - OTHER ENCEPHALOPATHY Status: Chronic (3) Dysphagia Code(s): R13.10 - DYSPHAGIA, UNSPECIFIED Status: Chronic Qualifiers: Dysphagia type: oropharyngeal phase Qualified Code(s): R13.12 - Dysphagia, oropharyngeal phase (4) Expressive aphasia Code(s): R47.01 - APHASIA Status: Chronic (5) Chronic anemia Code(s): D64.9 - ANEMIA, UNSPECIFIED Status: Chronic (6) DM2 (diabetes mellitus, type 2) Status: Chronic Qualifiers: Diabetes mellitus penitentiary insulin use: without extermination inspector use (7) GERD (gastroesophageal reflux disease) Code(s): K21.9 - GASTRO-ESOPHAGEAL REFLUX DISEASE WITHOUT ESOPHAGITIS Status: Chronic Qualifiers: (8) HTN (hypertension) Code(s): I10 - ESSENTIAL (PRIMARY) HYPERTENSION Status: Chronic Qualifiers: Hypertension type: essential hypertension Qualified Code(s): I10 - Essential (primary) hypertension (9) Obesity (BMI 30.0-34.9) Code(s): E66.9 - OBESITY, UNSPECIFIED Status: Chronic (10) Seizure disorder Code(s): G40.909 - EPILEPSY, UNSP, NOT INTRACTABLE, WITHOUT STATUS EPILEPTICUS Status: Chronic - Plan DC pt to [facility], is cleared for dc by NSX and pulmology. Had change of EVD on 01/14/2019, removed 01/17/2019 is on zyvox q12h, has staph epidermidis in spinal fluid has chronic static encephalopathy, left hemiplegia, contractures, fft, peg feeds , snf resident, poor prognosis, palliative care. Is for hospice per palliative care conversation with family. On increased dose of keppra, continue clonidine, norvasc, lopressor, protonix, iv fluids and glucerna bolus peg feeds, sliding scale for dm hemostable
--- NOTE | 2019-01-18 05:35 | DIS ---
DATE OF ADMISSION: 01/08/2019 DATE OF DISCHARGE: 01/17/2019 DISCHARGE DISPOSITION: [facility]. PRIMARY DISCHARGE DIAGNOSES: 1. Hydrocephalus, resolved. 2. Chronic static encephalopathy. 3. Dysphagia. 4. History of left hemiplegia. 5. Severe deconditioning and functional quadriplegia. 6. The patient is nonverbal, has percutaneous endoscopic gastrostomy feeding. 7. Diabetes mellitus type 2. 8. Gastroesophageal reflux disease. 9. Hypertension. 10. Obesity. 11. Seizure disorder. PROCEDURES DONE DURING HOSPITALIZATION: The patient had external ventricular drain placement on 01/09/[address] Tracey for hydrocephalus. CT brain showed placement of 2 ventriculostomy tubes on the left and continued hydrocephalus. No other acute change seen. She has had serial CAT scans as part of external ventricular drain in-situ. Spinal fluid cultures grew staphylococcus epidermidis sensitive to Zyvox and vancomycin resistant to other antibiotics. Blood cultures x2, no growth. Urine culture, no growth. H and H 10 and 31, platelet count 414. Sedimentation rate 89, white count of 7.8, MCV 86. CRP 1.73. CSF analysis sent on 01/08/2019 was cloudy with 31% neutrophils, 55% lymphocytes, 24,531 RBCs, glucose of 37, total protein of 314. INPATIENT CONSULT: Dr. Jeong for Neurosurgery, Dr. Shoemaker for Pulmonology, Dr. Villegas for Infectious Disease. DISCHARGE MEDICATION: 1. Zyvox 600 mg twice daily for 10 days. 2. Keppra 750 mg twice daily. 3. Tylenol p.r.n. 4. Protonix 40 mg daily. 5. Multivitamin 1 tablet daily. 6. Clonidine p.r.n. 7. Norvasc 5 mg p.o. at bedtime. ALLERGIES: TO ZOSYN, VANCOMYCIN, CODEINE, AND LEVAQUIN. DISCHARGE PLAN: The patient to follow up with Dr. Montalvo in 1 week. BRIEF COURSE DURING HOSPITALIZATION: The patient initially was admitted by Neurosurgery for hydrocephalus and right facial swelling. She was initially suspected for possible shunt malfunction. She has had a left frontal EVD placed and the patient was admitted to ICU. The patient had a fever of 100 degrees. CSF analysis and cultures were consistent with Staph epidermidis infection. The organism was sensitive to vancomycin and Zyvox. The patient was on Zyvox all through her stay here. Her external ventricular drain was removed on the 12th morning. The patient has remained hemodynamically and neurologically stable. She has chronic static encephalopathy, is nonverbal, PEG fed, functional quadriparesis with history of left hemiplegia and right-sided diffuse atrophy with minimal movement in the right upper extremity. She has had consultation with palliative care as well. The family have opted for hospice at the half-way. This is being set with help from [facility] at [facility]. The hospice agency will talk to family regarding code status and further goals of care while being in hospice at the half-way. A total of 35 minutes was spent on discharge plan. Please see a [id number] documentation for the day of discharge on [employer]. Job ID: [id number] MTDD
--- NOTE | 2019-01-20 07:45 | PQF ---
LENIN NOLASCO VINAYA KUMAR MD [id number] CLINICAL DOCUMENTATION CLARIFICATION FORM: POST DISCHARGE Addendum to original discharge summary date: ____ Late entry note date: __ DATE: 01/20/2019 ATTN: JENNIE PEREIRA MD Please exercise your independent, professional judgment in responding to the clarification form. Clinical indicators are provided on the bottom of this form for your review Please check appropriate box(s) to clarify if the following diagnosis has been ruled in or ruled out: FITNESS PLAN COORDINATOR shunt infection [x ] Ruled in diagnosis [ x ] Continue to treat [ ] Resolved [ ] Ruled out diagnosis [ ] Cannot rule out diagnosis [ ] Other diagnosis [ ] Unable to determine For continuity of documentation, please document condition throughout progress notes and discharge summary. Thank You. CLINICAL INDICATORS - SIGNS / SYMPTOMS / LABS - Initially suspected for possible shunt malfunction- , 01/18, JENNIE PEREIRA MD - CSF analysis and cultures were consistent with staph epidermidis infection- , 01/18, JENNIE PEREIRA MD - Hydrocephalus and facial swelling- , 01/18, JENNIE PEREIRA MD - she was found to have shunt failure and subsequent shunt revision on 12/04- H& P, 01/08, Jos Gross MD - Possible concern for shunt malnutrition versus shunt infection- H&P, 01/08, Jos Gross MD RISK FACTORS -Functional quadriparesis with history of left hemiplegia and right side diffuse atrophy-, 01/18, JENNIE PEREIRA MD -Shunt revision 12/04- H&P, 01/08, Jos Ty TREATMENTS -EVD -01/09 -Ancef-MAR, 01/08 (This form is maintained as a part of the permanent medical record) 2014 [employer], [employer]. All Rights Reserved Dez Wilde [not provided] [not provided] JUAN
== END 2019-01-17 15:05 | DRG 25 ==
LOC: CCU 21:14
PROVIDERS: ADMIT Surgery; ATTEND Surgery
PROC: 009600Z Drainage of Cerebral Ventricle with Drainage Device, Open Approach (ICD-10-PCS; principal; 2019-01-09)
PROC: 00P6X0Z Removal of Drainage Device from Cerebral Ventricle, External Approach (ICD-10-PCS; 2019-01-16)
DX: T85.730A Infection and inflammatory reaction due to ventricular intracranial (communicating) shunt, initial encounter (principal); R53.2 Functional quadriplegia; G93.41 Metabolic encephalopathy; G00.3 Staphylococcal meningitis; G91.1 Obstructive hydrocephalus; R47.01 Aphasia; E11.9 Type 2 diabetes mellitus without complications; R13.10 Dysphagia, unspecified; K21.9 Gastro-esophageal reflux disease without esophagitis; I10 Essential (primary) hypertension; E66.9 Obesity, unspecified; B95.7 Other staphylococcus as the cause of diseases classified elsewhere; G40.909 Epilepsy, unspecified, not intractable, without status epilepticus; F31.9 Bipolar disorder, unspecified; F41.9 Anxiety disorder, unspecified; D64.9 Anemia, unspecified; J45.909 Unspecified asthma, uncomplicated; F03.90 Unspecified dementia, unspecified severity, without behavioral disturbance, psychotic disturbance, mood disturbance, and anxiety; Z51.5 Encounter for palliative care; Y83.9 Surgical procedure, unspecified as the cause of abnormal reaction of the patient, or of later complication, without mention of misadventure at the time of the procedure; Z88.1 Allergy status to other antibiotic agents; Z93.1 Gastrostomy status; Z88.8 Allergy status to other drugs, medicaments and biological substances; Z90.49 Acquired absence of other specified parts of digestive tract; Z93.0 Tracheostomy status; Z74.01 Bed confinement status
CPT/HCPCS: 36415; 36416; 70450; 80048; 81001; 82945; 83735; 84100; 84157; 85025; 85060; 85652; 86140; 87040; 87070; 87077; 87086; 87186; 87205; 89051; J0131; J0690; J1953; J2020; J2270; J3010; J3490

== ENCOUNTER 2019-06-30 17:13 | Inpatient (IN) | payer MEDICARE, MEDICAID, OTHER ==
[2019-06-30 17:57] LABS: Bacteria/HPF 4+ HPF (None Seen); Bilirubin Negative (Negative); Blood, Urine Trace (Negative); Clarity Turbid (Clear); Glucose, Urine (Dipstick) Normal (Negative); Leukocyte 500 Leu/uL (Negative); Nitrite Negative (Negative); Protein, Urine (Dipstick) Negative (Neg-Trace); RBC/HPF 0-3 HPF (0-3); Urobilinogen Normal mg/dL (Less than 2); WBC/HPF 21-50 HPF (0-3)
--- NOTE | 2019-06-30 18:13 | RAD ---
CHEST ONE VIEW: History: Apnea Comparison: 2019 FINDINGS: Exam is limited due to patient's chin over the field of view. There are catheters over the right and left hemithoraces. Lungs are hypoinflated. There are atelectatic changes in the right middle lobe. IMPRESSION: Limited exam. No acute intrathoracic abnormality. POS: HOME
[2019-06-30 18:20] LABS: Calcium 9.1 mg/dL (7.8-10.44); Chloride 97 mmol/L (98-107); Potassium 4.5 mmol/L (3.5-5.1); Sodium 136 mmol/L (136-145)
[2019-06-30 18:30] LABS: ALT (SGPT) 31 U/L (8-55); AST (SGOT) 28 U/L (5-34); Albumin 3.8 g/dL (3.5-5.0); Alkaline Phosphatase 128 U/L (40-110); Anion Gap 15 mmol/L (10-20); BUN (Urea Nitrogen) 12 mg/dL (7.0-18.7); Bilirubin, Total 0.4 mg/dL (0.2-1.2); Calc. Creatinine Clearance 0 mL/min (70-130); Carbon Dioxide 28 mmol/L (22-29); Estimated GFR-MDRD Greater than 90; Glucose 99 mg/dL (70-105); Protein, Total 7.8 g/dL (6.0-8.3)
[2019-06-30] MEDS ORDERED: cefTRIAXone\\ROCEPHIN 2 GM VIAL ONE (18:30)
[2019-06-30 18:35] LABS: #Monocytes 0.6 thou/uL (0.11-0.59); #Neutrophils 7.2 thou/uL (1.40-6.50); %Basophils 0.2 % (0.0-1.0); %Eosinophils 0.4 % (0.0-10.0); %Monocytes 6.1 % (0.0-10.0); %Neutrophils 73.4 % (42.0-75.0); Hemoglobin 12.9 g/dL (12.0-16.0); Mean Corpuscular HGB CONC 31.5 g/dL (32.0-36.0); Mean Corpuscular Hemoglobin 29.5 pg (27.0-31.0); Mean Corpuscular Volume 93.5 fL (78.0-98.0); Mean Platelet Volume 8.3 fL (7.4-10.4); Platelet Count 356 thou/uL (130-400); RBC Distribution Width 13.1 % (11.5-14.5); Red Blood Cell (RBC) Count 4.37 mill/uL (4.20-5.40); White Blood Cell (WBC) Count 9.8 thou/uL (4.8-10.8)
--- NOTE | 2019-06-30 23:07 | HP ---
CHIEF COMPLAINT: Sent from the halfway with apneic spells. HISTORY OF PRESENT ILLNESS: Ms. Norwood is a 49-year-old female, who suffered an intracranial hemorrhage and has had severe neurological deficits ever sent. She resides in a nursing facility. She is essentially bed bound and nonverbal. Therefore, I am unable to get any history and all of the history is relied upon from information from the emergency room records. The patient was sent over from the halfway due to concerns for apneic episodes lasting anywhere from 10 to 15 seconds. She also had "wet sounding lungs." There was no fever reported. The halfway had tested her for the COVID virus, but the results were not back yet. When she was evaluated in the ER, she was found to have findings consistent with urinary tract infection. Chest x-ray was not very revealing, it was extremely hypoinflated, but there was concern for possible early sepsis as she was tachycardic and she is being admitted for UTI and rule out COVID. Otherwise, no other history is obtainable. REVIEW OF SYSTEMS: Unobtainable. 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 She has a history of bipolar disorder, depression and anxiety in her psychiatric history. SOCIAL HISTORY: No history of any alcohol or drug use. She currently resides in a nursing facility. ALLERGIES: INCLUDE CODEINE, SULFA, LEVAQUIN, VANCOMYCIN, AND ZOSYN. THE REACTIONS ARE UNKNOWN. FAMILY HISTORY: Unobtainable. CURRENT MEDICATIONS: Taken from the emergency room records and includes: 1. Amlodipine 5 mg daily. 2. Glycopyrrolate 1 mg per G-tube daily. 3. Keppra 500 mg twice daily. 4. Clonidine transdermal. 5. Levsin 0.125 mg p.r.n. 6. Morphine sulfate every hour. PHYSICAL EXAMINATION: GENERAL: She appears chronically ill. She will not open her eyes and she has numerous contractures in the hands and lower extremities. Her essentially clenched tight. VITAL SIGNS: Blood pressure was 146/101, heart rate 101, respiratory rate of 24, temperature is 98.9, and O2 saturation was 97% on room air. HEENT: Her pupils are reactive. Throat, there is no erythema. NECK: No adenopathy. No bruits. LUNGS: She had quite a bit of upper airway noise as well as some rhonchi, but no rales. CARDIOVASCULAR: Heart rate was tachycardic, but regular. No murmurs, clicks, or rubs. ABDOMEN: PEG tube site is clean in place. There was no skin breakdown. No drainage. Positive for bowel sounds. There is no rebound or guarding. EXTREMITIES: There was no edema. No calf tenderness. No joint effusions, although she has significant muscle wasting and atrophy in the lower extremities and deformities in both feet. LABORATORY RESULTS: White blood cell count 9.8, hemoglobin 12.9, hematocrit is 40.9, and platelet count is 356. Sodium 136, potassium 4.5, chloride is 97, CO2 is 28, BUN of 12, creatinine 0.53, glucose is 99. Urinalysis shows 4+ bacteria, positive leukocyte esterase, and chest x-ray again by my reading shows very poor inspiratory effort as well as hypoinflation. She may have some pleural thickening. ASSESSMENT: This is a 49-year-old female with severe brain injury following a hemorrhagic stroke, which has left her with severe disability. She has been found to have apneic spells, which are of unclear etiology and also findings of urinary tract infection. Due to her being in a nursing facility, a COVID screen has also been obtained. 1. For the urinary tract infection, we will continue Rocephin. She has multiple antibiotic allergies. We will await culture results in order to tailor antibiotic coverage. We will continue IV fluid resuscitation. 2. Apneic spells. This is unclear at this time the etiology. She does appear to have slightly labored breathing, but appears to be more due to difficulty clearing secretions than an actual pneumoniae. We will consider adding azithromycin to her regimen to cover for community-acquired infection. 3. Hypertension. We will continue Catapres patch and p.r.n. medicines for blood pressure. 4. History of sequelae from brain hemorrhage. Continue Marsha. Job ID: [id number]
[2019-06-30] MEDS ORDERED: hydrALAZINE 20 MG/ML VIAL SLOW IVP PRN (23:39)
[2019-06-30] MEDS ORDERED: Guaifenesin DM 100-10/5 ML UDCUP PER TUBE PRN (23:39)
[2019-06-30] MEDS ORDERED: Acetaminophen 325 MG TAB PER TUBE PRN (23:39)
[2019-06-30 23:42] VITALS: BMI 26.2
[2019-06-30] MEDS ORDERED: levETIRAcetam 500 mg/5 ml Oral Solution PER TUBE SCH (23:45)
[2019-06-30] MEDS ORDERED: Famotidine 20 MG TAB PER TUBE SCH (23:45)
[2019-07-01] MEDS: Azithromycin 500 MG in Sodium Chloride 0.9% 250 ML 250 ML IVPB SCH (00:10)
[2019-07-01] MEDS: Sodium Chloride 0.9% 1,000 ML IV SCH ×2 (00:12→14:57)
[2019-07-01 05:38] LABS: #Lymphocytes 1.5 thou/uL (1.20-3.40); #Monocytes 0.5 thou/uL (0.11-0.59); #Neutrophils 9.7 thou/uL (1.40-6.50); %Basophils 0.3 % (0.0-1.0); %Eosinophils 0.3 % (0.0-10.0); %Lymphocytes 12.6 % (21.0-51.0); %Monocytes 4.3 % (0.0-10.0); %Neutrophils 82.6 % (42.0-75.0); Hemoglobin 12.3 g/dL (12.0-16.0); Mean Corpuscular HGB CONC 32.3 g/dL (32.0-36.0); Mean Corpuscular Hemoglobin 29.9 pg (27.0-31.0); Mean Corpuscular Volume 92.5 fL (78.0-98.0); Mean Platelet Volume 8.1 fL (7.4-10.4); Platelet Count 302 thou/uL (130-400); RBC Distribution Width 12.7 % (11.5-14.5); Red Blood Cell (RBC) Count 4.13 mill/uL (4.20-5.40); White Blood Cell (WBC) Count 11.7 thou/uL (4.8-10.8)
[2019-07-01 06:15] LABS: Anion Gap 12 mmol/L (10-20); BUN (Urea Nitrogen) 6 mg/dL (7.0-18.7); Calc. Creatinine Clearance 152 mL/min (70-130); Calcium 8.8 mg/dL (7.8-10.44); Carbon Dioxide 27 mmol/L (22-29); Chloride 101 mmol/L (98-107); Estimated GFR-MDRD Greater than 90; Glucose 104 mg/dL (70-105); Potassium 3.9 mmol/L (3.5-5.1); Sodium 136 mmol/L (136-145)
[2019-07-01] MEDS: levETIRAcetam 500 mg/5 ml Oral Solution PER TUBE SCH ×2 (08:30→21:02)
[2019-07-01] MEDS: Enoxaparin Sodium 40 MG/0.4 ML SYRINGE SC SCH (08:31)
[2019-07-01] MEDS: Famotidine 20 MG TAB PER TUBE SCH ×2 (08:31→21:01)
[2019-07-01] MEDS ORDERED: levETIRAcetam 500 MG TAB PER TUBE SCH (09:00)
[2019-07-01 10:21] LABS: SARS-CoV-2 MS2 Positive; SARS-CoV-2 N Gene Negative; SARS-CoV-2 S Gene Negative; SARS-CoV-2 orf1ab Negative
--- NOTE | 2019-07-01 12:51 | PDOC.HOSPP ---
- Subjective Encounter Date: 07/01/19 Encounter Time: 12:49 Subjective: Ms. Norwood was seen today in follow-up of UTI. She is non-verbal. She appears comfortable. - Objective Vital Signs & Weight: Vital Signs (12 hours) Temp Pulse Resp BP Pulse Ox 07/01/19 11:31 98.7 F 104 H 18 120/79 98 07/01/19 08:45 98.9 F 102 H 20 128/89 96 07/01/19 02:26 98.1 F 105 H 20 147/87 H 96 Weight Weight 143 lb 4.8 oz I&O: 06/30/19 07/01/19 07/02/19 06:59 06:59 06:59 Intake Total 390 40 Output Total 450 Balance -60 40 Result Diagrams: 07/01/19 05:20 07/01/19 05:21 Hospitalist ROS - Medication Medications: Active Medications Generic Name Dose Route Start Last Admin Trade Name Freq PRN Reason Stop Dose Admin Enoxaparin Sodium 40 mg 07/01/19 09:00 07/01/19 08:31 Lovenox SC 40 mg 0900 ALAN Administration Famotidine 20 mg 07/01/19 09:00 07/01/19 08:31 Pepcid PER TUBE 20 mg BID ALAN Administration Sodium Chloride 1,000 mls @ 70 mls/hr 06/30/19 23:39 07/01/19 00:12 Normal Saline 0.9% IV 1,000 mls .[id number] ALAN Administration Azithromycin 500 mg/ Sodium 250 mls @ 250 mls/hr 06/30/19 23:59 07/01/19 00: 10 Chloride IVPB 250 mls 2359 ALAN Administration Levetiracetam 500 mg 07/01/19 09:00 07/01/19 08:30 Keppra Oral Solution PER TUBE 500 mg BID ALAN Administration - Exam Eye: PERRL, anicteric sclera Heart: RRR, no murmur, no gallops, no rubs, normal peripheral pulses Respiratory: CTAB (+ coarse breath sounds, and upper airway noise) Gastrointestinal: soft, non-distended, normal bowel sounds Extremities: no edema Musculoskeletal: diffuse muscle atrophy (+ contractures) Hosp A/P (1) Acute metabolic encephalopathy Code(s): G93.41 - METABOLIC ENCEPHALOPATHY Status: Acute (2) UTI (urinary tract infection) Status: Acute Qualifiers: Urinary tract infection type: acute cystitis Hematuria presence: without hematuria Qualified Code(s): N30.00 - Acute cystitis without hematuria (3) DM2 (diabetes mellitus, type 2) Status: Chronic Qualifiers: Diabetes mellitus terminal clerk insulin use: without terminal clerk use (4) HTN (hypertension) Code(s): I10 - ESSENTIAL (PRIMARY) HYPERTENSION Status: Chronic Qualifiers: Hypertension type: essential hypertension Qualified Code(s): I10 - Essential (primary) hypertension (5) ICH (intracerebral hemorrhage) Code(s): I61.9 - NONTRAUMATIC INTRACEREBRAL HEMORRHAGE, UNSPECIFIED Status: Chronic Qualifiers: Encounter type: sequela Laterality: right - Plan * UTI- continue Rocephin, and await cultures * Encephalopathy- I suspect she is at her baseline * COVID screen was negative * HTN- blood pressure is stable * DM-blood glucose is stable * ICH- she has severe physical and cognitive deficits
[2019-07-01] MEDS ORDERED: Dextrose 50% Abboject 50 ML SYRINGE SLOW IVP PRN (12:56)
[2019-07-01] MEDS ORDERED: Dextrose 5% in Water 1,000 ML IV PRN (12:56)
[2019-07-01] MEDS ORDERED: HumaLOG 300 UNITS/3 ML VIAL SC PRN ×2 (12:56)
[2019-07-01] MEDS: cefTRIAXone\\ROCEPHIN 1 GM in Sodium Chloride 0.9% 100 ML IVPB SCH (17:44)
[2019-07-01] MEDS ORDERED: Azithromycin 500 MG in Sodium Chloride 0.9% 250 ML 250 ML IVPB SCH (18:00)
[2019-07-01] MEDS: Lorazepam 0.5 MG TAB PER TUBE PRN (23:49)
[2019-07-02] MEDS: Azithromycin 500 MG in Sodium Chloride 0.9% 250 ML 250 ML IVPB SCH ×2 (00:16→23:32)
[2019-07-02] MEDS: Sodium Chloride 0.9% 1,000 ML IV SCH ×2 (05:35→17:27)
[2019-07-02 06:46] LABS: #Lymphocytes 1.1 thou/uL (1.20-3.40); #Monocytes 0.3 thou/uL (0.11-0.59); %Basophils 0.2 % (0.0-1.0); %Eosinophils 0.6 % (0.0-10.0); %Monocytes 3.5 % (0.0-10.0); %Neutrophils 80.7 % (42.0-75.0); Mean Corpuscular HGB CONC 30.7 g/dL (32.0-36.0); Mean Corpuscular Hemoglobin 28.6 pg (27.0-31.0); Mean Corpuscular Volume 93.4 fL (78.0-98.0); Mean Platelet Volume 8.3 fL (7.4-10.4); Platelet Count 307 thou/uL (130-400); Red Blood Cell (RBC) Count 4.19 mill/uL (4.20-5.40); White Blood Cell (WBC) Count 7.4 thou/uL (4.8-10.8)
[2019-07-02 06:58] LABS: Anion Gap 11 mmol/L (10-20); BUN (Urea Nitrogen) 5 mg/dL (7.0-18.7); Calc. Creatinine Clearance 149 mL/min (70-130); Calcium 8.6 mg/dL (7.8-10.44); Carbon Dioxide 24 mmol/L (22-29); Chloride 104 mmol/L (98-107); Estimated GFR-MDRD Greater than 90; Glucose 118 mg/dL (70-105); Potassium 3.3 mmol/L (3.5-5.1); Sodium 136 mmol/L (136-145)
[2019-07-02] MEDS: levETIRAcetam 500 mg/5 ml Oral Solution PER TUBE SCH ×2 (08:50→20:11)
[2019-07-02] MEDS: Enoxaparin Sodium 40 MG/0.4 ML SYRINGE SC SCH (08:51)
[2019-07-02] MEDS: Famotidine 20 MG TAB PER TUBE SCH ×2 (08:51→20:11)
[2019-07-02] MEDS: Lorazepam 0.5 MG TAB PER TUBE PRN ×2 (12:16→20:11)
--- NOTE | 2019-07-02 14:39 | PDOC.HOSPP ---
- Subjective Encounter Date: 07/02/19 Encounter Time: 14:37 Subjective: Ms. Norwood was seen today in follow-up of UTI and sepsis. She is non-verbal. No complaints voiced by staff. - Objective Vital Signs & Weight: Vital Signs (12 hours) Temp Pulse Resp BP BP Pulse Ox 07/02/19 12:21 116 H 07/02/19 11:00 99.2 F 15 144/80 H 82 L 07/02/19 08:50 133/85 07/02/19 08:00 97 07/02/19 07:00 98.3 F 106 H 18 149/92 H 97 07/02/19 03:52 97 07/02/19 03:00 98.3 F 103 H 18 120/80 97 Weight Admit Weight 143 lb 4.8 oz Weight 143 lb 4.8 oz I&O: 07/01/19 07/02/19 07/03/19 06:59 06:59 06:59 Intake Total 390 1470 Output Total 450 1250 Balance -60 220 Result Diagrams: 07/02/19 06:23 07/02/19 06:23 Additional Labs: Accuchecks 07/02/19 07/02/19 07/01/19 12:01 04:59 20:17 POC Glucose 182 H 86 148 H 07/01/19 16:24 POC Glucose 184 H Hospitalist ROS - Medication Medications: Active Medications Generic Name Dose Route Start Last Admin Trade Name Freq PRN Reason Stop Dose Admin Acetaminophen 650 mg 06/30/19 23:39 07/02/19 12:16 Tylenol PER TUBE 650 mg Q4H PRN Administration Headache/Fever/Mild Pain (1-3) Enoxaparin Sodium 40 mg 07/01/19 09:00 07/02/19 08:51 Lovenox SC 40 mg 0900 ALAN Administration Famotidine 20 mg 07/01/19 09:00 07/02/19 08:51 Pepcid PER TUBE 20 mg BID ALAN Administration Ceftriaxone Sodium 1 gm/ 100 mls @ 200 mls/hr 07/01/19 18:00 07/01/19 17:44 Sodium Chloride IVPB 100 mls 1800 ALAN Administration Sodium Chloride 1,000 mls @ 70 mls/hr 06/30/19 23:39 07/02/19 05:35 Normal Saline 0.9% IV 1,000 mls .[id number] ALAN Administration Azithromycin 500 mg/ Sodium 250 mls @ 250 mls/hr 06/30/19 23:59 07/02/19 00: 16 Chloride IVPB 250 mls 2359 ALAN Administration Levetiracetam 500 mg 07/01/19 09:00 07/02/19 08:50 Keppra Oral Solution PER TUBE 500 mg BID ALAN Administration Lorazepam 0.25 mg 06/30/19 23:39 07/02/19 12:16 Ativan PER TUBE 0.25 mg Q4H PRN Administration Anxiety - Exam Eye: PERRL, anicteric sclera Heart: RRR, no murmur, no gallops, no rubs Respiratory: CTAB (+ upper airway noise) Gastrointestinal: soft, non-tender, non-distended, normal bowel sounds, no palpable masses Extremities: no cyanosis, no edema (+ contractures of the lower extremities, and ) Musculoskeletal: diffuse muscle atrophy Hosp A/P (1) Acute metabolic encephalopathy Code(s): G93.41 - METABOLIC ENCEPHALOPATHY Status: Acute (2) UTI (urinary tract infection) Status: Acute Qualifiers: Urinary tract infection type: acute cystitis Hematuria presence: without hematuria Qualified Code(s): N30.00 - Acute cystitis without hematuria (3) DM2 (diabetes mellitus, type 2) Status: Chronic Qualifiers: Diabetes mellitus mcfp insulin use: without buttermilk drier operator use (4) HTN (hypertension) Code(s): I10 - ESSENTIAL (PRIMARY) HYPERTENSION Status: Chronic Qualifiers: Hypertension type: essential hypertension Qualified Code(s): I10 - Essential (primary) hypertension (5) ICH (intracerebral hemorrhage) Code(s): I61.9 - NONTRAUMATIC INTRACEREBRAL HEMORRHAGE, UNSPECIFIED Status: Chronic Qualifiers: Encounter type: sequela Laterality: right - Plan * UTI- continue Rocephin, cultures are growing E. coli which is sensitive to Rocephin * with sepsis- as above- and will continue IV antibiotics due to positive blood cultures for 1-2 more days * HTN- blood pressure is stable * DM-blood glucose is stable * ICH- with severe physical and cognitive deficits
[2019-07-02] MEDS: cefTRIAXone\\ROCEPHIN 1 GM in Sodium Chloride 0.9% 100 ML IVPB SCH (17:27)
[2019-07-03] MEDS: Sodium Chloride 0.9% 1,000 ML IV SCH (09:22)
[2019-07-03] MEDS: Enoxaparin Sodium 40 MG/0.4 ML SYRINGE SC SCH (09:22)
[2019-07-03] MEDS: levETIRAcetam 500 mg/5 ml Oral Solution PER TUBE SCH ×2 (09:22→22:35)
[2019-07-03] MEDS: Famotidine 20 MG TAB PER TUBE SCH ×2 (09:22→22:34)
--- NOTE | 2019-07-03 11:04 | PDOC.HOSPP ---
- Subjective Encounter Date: 07/03/19 Encounter Time: 11:03 Subjective: Ms. Norwood was seen today in follow-up of UTI. Her Aunt is at the bedside and tells me she " looks good". She appears to have less upper airway congestion. No complaints voived by staff. - Objective Vital Signs & Weight: Vital Signs (12 hours) Temp Pulse Resp BP Pulse Ox 07/03/19 09:00 95 07/03/19 07:23 98.5 F 101 H 19 131/85 95 07/03/19 03:28 98 Weight Admit Weight 143 lb 4.8 oz Weight 143 lb 4.8 oz I&O: 07/02/19 07/03/19 07/04/19 06:59 06:59 06:59 Intake Total 1470 1840 Output Total 1250 1200 Balance 220 640 Result Diagrams: 07/02/19 06:23 07/02/19 06:23 Additional Labs: Accuchecks 07/03/19 07/02/19 07/02/19 04:37 19:45 16:32 POC Glucose 136 H 112 H 142 H 07/02/19 12:01 POC Glucose 182 H Hospitalist ROS - Medication Medications: Active Medications Generic Name Dose Route Start Last Admin Trade Name Freq PRN Reason Stop Dose Admin Acetaminophen 650 mg 06/30/19 23:39 07/02/19 12:16 Tylenol PER TUBE 650 mg Q4H PRN Administration Headache/Fever/Mild Pain (1-3) Enoxaparin Sodium 40 mg 07/01/19 09:00 07/03/19 09:22 Lovenox SC 40 mg 0900 ALAN Administration Famotidine 20 mg 07/01/19 09:00 07/03/19 09:22 Pepcid PER TUBE 20 mg BID ALAN Administration Ceftriaxone Sodium 1 gm/ 100 mls @ 200 mls/hr 07/01/19 18:00 07/02/19 17:27 Sodium Chloride IVPB 100 mls 1800 ALAN Administration Sodium Chloride 1,000 mls @ 70 mls/hr 06/30/19 23:39 07/03/19 09:22 Normal Saline 0.9% IV 1,000 mls .[id number] ALAN Administration Azithromycin 500 mg/ Sodium 250 mls @ 250 mls/hr 06/30/19 23:59 07/02/19 23: 32 Chloride IVPB 250 mls 2359 ALAN Administration Levetiracetam 500 mg 07/01/19 09:00 07/03/19 09:22 Keppra Oral Solution PER TUBE 500 mg BID ALAN Administration Lorazepam 0.25 mg 06/30/19 23:39 07/02/19 20:11 Ativan PER TUBE 0.25 mg Q4H PRN Administration Anxiety - Exam Eye: PERRL Heart: RRR, no murmur, no gallops, no rubs, normal peripheral pulses Respiratory: CTAB (with coarse breath sounds and some upper airway noise), no rales, no ronchi Gastrointestinal: soft (PEG tube site is looks good, no skin break down, no drainage, or erythema), non-tender, non-distended, normal bowel sounds Extremities: no cyanosis, no edema Hosp A/P (1) Acute metabolic encephalopathy Code(s): G93.41 - METABOLIC ENCEPHALOPATHY Status: Acute (2) UTI (urinary tract infection) Status: Acute Qualifiers: Urinary tract infection type: acute cystitis Hematuria presence: without hematuria Qualified Code(s): N30.00 - Acute cystitis without hematuria (3) DM2 (diabetes mellitus, type 2) Status: Chronic Qualifiers: Diabetes mellitus senior living insulin use: without terminal supervisor use (4) HTN (hypertension) Code(s): I10 - ESSENTIAL (PRIMARY) HYPERTENSION Status: Chronic Qualifiers: Hypertension type: essential hypertension Qualified Code(s): I10 - Essential (primary) hypertension (5) ICH (intracerebral hemorrhage) Code(s): I61.9 - NONTRAUMATIC INTRACEREBRAL HEMORRHAGE, UNSPECIFIED Status: Chronic Qualifiers: Encounter type: sequela Laterality: right - Plan * UTI-with sepsis, due to E. Coli- continue Rocephin IV one more day, then transition to an oral cephalosporin via the PEG tube * HTN- blood pressure is stable * DM-blood glucose is stable * ICH- with severe physical and cognitive deficits
[2019-07-03 11:16] LABS: Anion Gap 15 mmol/L (10-20); BUN (Urea Nitrogen) 8 mg/dL (7.0-18.7); Calc. Creatinine Clearance 143 mL/min (70-130); Calcium 8.9 mg/dL (7.8-10.44); Carbon Dioxide 22 mmol/L (22-29); Chloride 106 mmol/L (98-107); Estimated GFR-MDRD Greater than 90; Glucose 142 mg/dL (70-105); Potassium 4.2 mmol/L (3.5-5.1); Sodium 139 mmol/L (136-145)
[2019-07-03] MEDS: cefTRIAXone\\ROCEPHIN 1 GM in Sodium Chloride 0.9% 100 ML IVPB SCH (17:53)
[2019-07-04] MEDS: Azithromycin 500 MG in Sodium Chloride 0.9% 250 ML 250 ML IVPB SCH (00:39)
[2019-07-04] MEDS: Sodium Chloride 0.9% 1,000 ML IV SCH ×2 (00:39→12:54)
[2019-07-04 08:10] VITALS: BP 129/84; TEMP 98.4
[2019-07-04] MEDS: levETIRAcetam 500 mg/5 ml Oral Solution PER TUBE SCH (09:07)
[2019-07-04] MEDS: Enoxaparin Sodium 40 MG/0.4 ML SYRINGE SC SCH (09:07)
[2019-07-04] MEDS: Famotidine 20 MG TAB PER TUBE SCH (09:07)
[2019-07-04] MEDS: Lorazepam 0.5 MG TAB PER TUBE PRN (10:46)
--- NOTE | 2019-07-04 13:07 | PDOC.HOSPP ---
- Subjective Encounter Date: 07/04/19 Encounter Time: 13:06 Subjective: Ms. Norwood was seen today in follow-up of UTI. She is more active today. She appears she may be at baseline. - Objective Vital Signs & Weight: Vital Signs (12 hours) Temp Pulse Resp BP BP Pulse Ox 07/04/19 08:00 98.4 F 87 20 129/84 97 07/04/19 04:00 98.2 F 91 18 134/81 97 Weight Admit Weight 143 lb 4.8 oz Weight 143 lb 4.8 oz I&O: 07/03/19 07/04/19 07/05/19 06:59 06:59 06:59 Intake Total 1840 2275 480 Output Total 1200 700 550 Balance 640 1575 -70 Result Diagrams: 07/02/19 06:23 07/03/19 10:18 Additional Labs: Accuchecks 07/04/19 07/04/19 07/03/19 10:50 04:58 19:57 POC Glucose 107 98 126 H 07/03/19 07/03/19 16:25 11:22 POC Glucose 143 H 176 H Hospitalist ROS - Medication Medications: Active Medications Generic Name Dose Route Start Last Admin Trade Name Freq PRN Reason Stop Dose Admin Acetaminophen 650 mg 06/30/19 23:39 07/02/19 12:16 Tylenol PER TUBE 650 mg Q4H PRN Administration Headache/Fever/Mild Pain (1-3) Enoxaparin Sodium 40 mg 07/01/19 09:00 07/04/19 09:07 Lovenox SC 40 mg 0900 ALAN Administration Famotidine 20 mg 07/01/19 09:00 07/04/19 09:07 Pepcid PER TUBE 20 mg BID ALAN Administration Ceftriaxone Sodium 1 gm/ 100 mls @ 200 mls/hr 07/01/19 18:00 07/03/19 17:53 Sodium Chloride IVPB 100 mls 1800 ALAN Administration Sodium Chloride 1,000 mls @ 70 mls/hr 06/30/19 23:39 07/04/19 12:54 Normal Saline 0.9% IV Not Given .[id number] ALAN Azithromycin 500 mg/ Sodium 250 mls @ 250 mls/hr 06/30/19 23:59 07/04/19 00: 39 Chloride IVPB 250 mls 2359 ALAN Administration Insulin Human Lispro 0 units 07/01/19 12:56 07/03/19 13:19 Humalog SC 2 unit .MILD SLIDING SCALE PRN Administration Mild Correctional Scale Levetiracetam 500 mg 07/01/19 09:00 07/04/19 09:07 Keppra Oral Solution PER TUBE 500 mg BID ALAN Administration Lorazepam 0.25 mg 06/30/19 23:39 07/04/19 10:46 Ativan PER TUBE 0.25 mg Q4H PRN Administration Anxiety - Exam Eye: PERRL, anicteric sclera Heart: RRR, no murmur, no gallops, no rubs, normal peripheral pulses Respiratory: CTAB (+ some upper airway noise) Gastrointestinal: soft, non-distended (PEG site ok), normal bowel sounds Extremities: no cyanosis, no edema Musculoskeletal: diffuse muscle atrophy Hosp A/P (1) Acute metabolic encephalopathy Code(s): G93.41 - METABOLIC ENCEPHALOPATHY Status: Acute (2) UTI (urinary tract infection) Status: Acute Qualifiers: Urinary tract infection type: acute cystitis Hematuria presence: without hematuria Qualified Code(s): N30.00 - Acute cystitis without hematuria (3) DM2 (diabetes mellitus, type 2) Status: Chronic Qualifiers: Diabetes mellitus prison insulin use: without prison use (4) HTN (hypertension) Code(s): I10 - ESSENTIAL (PRIMARY) HYPERTENSION Status: Chronic Qualifiers: Hypertension type: essential hypertension Qualified Code(s): I10 - Essential (primary) hypertension (5) ICH (intracerebral hemorrhage) Code(s): I61.9 - NONTRAUMATIC INTRACEREBRAL HEMORRHAGE, UNSPECIFIED Status: Chronic Qualifiers: Encounter type: sequela Laterality: right - Plan * UTI-with sepsis, due to E. Coli- she has remained stable * Will transition her to antibiotics via the PEG * HTN- blood pressure is stable * DM-blood glucose is stable * ICH- with severe physical and cognitive deficits * Stable for discharge back to the Nursing facility
--- NOTE | 2019-07-04 23:46 | DIS ---
DATE OF ADMISSION: 06/30/2019 DATE OF DISCHARGE: 07/04/2019 DISCHARGE DISPOSITION: Back to the nursing facility. DISCHARGE DIAGNOSES: 1. Urinary tract infection with sepsis. 2. Metabolic encephalopathy. 3. 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 4. Hypertension. 5. Diabetes mellitus. 6. Gastroesophageal reflux disease. DISCHARGE MEDICATIONS: Include: 1. Keppra 750 mg p.o. b.i.d. 2. Omnicef 300 mg per tube twice a day for five days. 3. Multivitamin plus iron daily. 4. Lorazepam 0.5 mg per tube p.r.n. 5. Morphine sulfate 5 mg q.1 hour as needed. 6. Glycopyrrolate 1 mg daily. 7. Nexium 40 mg daily. 8. Clonidine 0.1 per tube p.r.n. 9. Norvasc 5 mg per tube daily. CODE STATUS: Full code. ALLERGIES: TO PENICILLIN, TAZOBACTAM, VANCOMYCIN, CODEINE AND LEVOFLOXACIN. HOSPITAL COURSE: Ms. Norwood is a pleasant 49-year-old female, who was sent to the emergency room due to concerns for apneic spell and fever. The patient was evaluated in the ER and found to have lab results consistent with urinary tract infection. She was tested for COVID-19 due to her m[facility] status, this was negative. Her urine culture eventually grew E coli, which was sensitive to Omnicef and enterococcus which was sensitive to penicillins. She had been treated with Rocephin since her admission and had improved and once that she was now clinically stable and afebrile, she is being discharged back to the nursing facility on Omnicef via the PEG tube. Job ID: [id number]
== END 2019-07-04 15:04 | DRG 871 ==
LOC: ERS 17:13 → 2SW 20:08 → T4-B 07-01 14:01
PROVIDERS: ADMIT Internal Medicine; ATTEND Internal Medicine
DX: A41.51 Sepsis due to Escherichia coli [E. coli] (principal); G93.41 Metabolic encephalopathy; N30.00 Acute cystitis without hematuria; Z20.828 Contact with and (suspected) exposure to other viral communicable diseases; E11.9 Type 2 diabetes mellitus without complications; K21.9 Gastro-esophageal reflux disease without esophagitis; I10 Essential (primary) hypertension; G40.909 Epilepsy, unspecified, not intractable, without status epilepticus; F31.9 Bipolar disorder, unspecified; F41.9 Anxiety disorder, unspecified; J45.909 Unspecified asthma, uncomplicated; Z88.5 Allergy status to narcotic agent; Z88.1 Allergy status to other antibiotic agents; Z79.899 Other long term (current) drug therapy; I69.198 Other sequelae of nontraumatic intracerebral hemorrhage
CPT/HCPCS: 36415; 36416; 51701; 71045; 80048; 80053; 81003; 81015; 83605; 83880; 84484; 85025; 87040; 87077; 87086; 87186; 87635; 93005; 96365; 96366; A4353; J0456; J0696; J1650; J3490; J7050; U0003

== ENCOUNTER 2019-08-17 21:01 | Inpatient (IN) | payer MEDICARE, MEDICAID ==
[2019-08-18] MEDS ORDERED: Propofol BOLUS 1,000 MG/100 ML VIAL IV PRN (02:05)
[2019-08-18] MEDS ORDERED: Lorazepam 2 MG/ML VIAL SLOW IVP PRN (02:05)
[2019-08-18] MEDS ORDERED: fentaNYL Citrate/PF 2,000 MCG in Sodium Chloride 0.9% 60 ML IV SCH (02:05)
[2019-08-18] MEDS ORDERED: Propofol 1,000 MG/100 ML VIAL IV PRN (02:05)
[2019-08-18] MEDS ORDERED: DISCONTINUE PREVIOUS NARCOTIC PAIN MEDICATIONS AND BENZODIAZEPINES FS SCH (02:05)
[2019-08-18] MEDS ORDERED: Fentanyl BOLUS 250 ML IVPB PRN (02:05)
[2019-08-18] MEDS ORDERED: Morphine 2 MG/ML VIAL SLOW IVP PRN (02:05)
[2019-08-18] MEDS ORDERED: Ondansetron PF 4 MG/2 ML Vial IVP PRN (02:55)
[2019-08-18] MEDS ORDERED: Ondansetron ODT 4 MG TAB PO PRN (02:55)
[2019-08-18] MEDS ORDERED: Acetaminophen 325 MG TAB PO PRN (02:55)
[2019-08-18] MEDS ORDERED: Acetaminophen 650 MG Suppository PR PRN (02:55)
--- NOTE | 2019-08-18 03:09 | PDOC.HHP ---
Hospitalist HPI - History of Present Illness respiratory distress History of Present Illness: most of the history was obtain from transfer and emr records. at arrival patient was intubated and sedated, no family members present, comes from a [place] [facility]. Case of an 49y/o female with pmhx of Htn, dm, bipolar disorder and hx of ich with seziures who comes transfer from [facility] due to respiratory failure on mechanical ventilation. patient recently discharge 2 days ago after been hospitalize for aspiration pneumonia, seem she was taken to [facility] yesterday for similar symptoms of respiratory distress but was discharge back [place] [facility]. arrived today at [facility] in respiratory failure where they had to intubate to improve oxygenation. 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 PEG tube in place) - Exam Eye: PERRL, anicteric sclera ENT: normocephalic atraumatic, no oropharyngeal lesions Neck: supple, symmetric, no JVD Heart: RRR, no murmur, no gallops Respiratory: CTAB, no wheezes, no rales Gastrointestinal: soft, non-tender, non-distended Extremities: no cyanosis, no clubbing, no edema Skin: normal turgor, no lesions, no rashes Neurological - other findings: sedated Musculoskeletal: normal tone, normal strength Psychiatric - other findings: sedated Hospitalist Results - Radiology Interpretation Chest x-ray Additional Comment: cxr density in meal lung CT scan - chest Additional Comment: cta - no pe, b/l lower lobe consolidation, R adrenal lesion Hospitalist H&P A/P - Problem (1) Acute respiratory failure with hypoxia Code(s): J96.01 - ACUTE RESPIRATORY FAILURE WITH HYPOXIA Status: Acute (2) Pneumonia Code(s): J18.9 - PNEUMONIA, UNSPECIFIED ORGANISM Status: Acute (3) DM2 (diabetes mellitus, type 2) Status: Chronic Qualifiers: Diabetes mellitus halfway insulin use: without halfway use Diabetes mellitus complication status: with hyperglycemia Qualified Code(s): E11.65 - Type 2 diabetes mellitus with hyperglycemia (4) Seizure disorder Code(s): G40.909 - EPILEPSY, UNSP, NOT INTRACTABLE, WITHOUT STATUS EPILEPTICUS Status: Chronic (5) trach and peg Status: Chronic (6) HTN (hypertension) Code(s): I10 - ESSENTIAL (PRIMARY) HYPERTENSION Status: Chronic Qualifiers: Hypertension type: essential hypertension Qualified Code(s): I10 - Essential (primary) hypertension - Plan Plan: 49 y/o fem with the stated pmxh who comes transfered from due to respitory failure hypoxic, recent hospitalization, discharge 08/14 due to aspiration pnuemonia. respiratory failure - on MV - pulmo / crit consulted - wean as tolerated - family wants full code pnuemonia - recent hospitalization - cefe + zyvox - f/u blood sputum cultures - ivfs - msrsa screen seizures continue home meds dm accu checks and ss htn patient w systolic in the 90s, will hold for now
[2019-08-18] MEDS: Sodium Chloride 0.9% 1,000 ML IV SCH ×2 (03:23→23:07)
[2019-08-18] MEDS ORDERED: Dextrose 5% in Water 1,000 ML IV PRN (03:47)
[2019-08-18] MEDS ORDERED: Dextrose 50% Abboject 50 ML SYRINGE SLOW IVP PRN (03:47)
[2019-08-18 06:49] LABS: Band 13 % (5-11); Hemoglobin 12.1 g/dL (12.0-16.0); Lymphocytes 5 % (21-51); MDiff Complete? YES; Mean Corpuscular HGB CONC 32.3 g/dL (32.0-36.0); Mean Corpuscular Hemoglobin 29.3 pg (27.0-31.0); Mean Corpuscular Volume 90.6 fL (78.0-98.0); Mean Platelet Volume 8.6 fL (7.4-10.4); Monocytes 4 % (0-10); Neutrophil 78 % (42-75); Platelet Count 182 thou/uL (130-400); Platelet Morphology Comment Appears Adequate; RBC Distribution Width 13.3 % (11.5-14.5); Red Blood Cell (RBC) Count 4.13 mill/uL (4.20-5.40); White Blood Cell (WBC) Count 13.3 thou/uL (4.8-10.8)
[2019-08-18 07:50] LABS: Actual Bicarbonate (HCO3a) 28.1 mEq/L (22-28); Base Excess (BEa) 5.8 mEq/L (-2.0 to +3.0); Calcium, Ionized (arterial) 1.19 mmol/L (1.12-1.30); Carboxyhemoglobin (COHb) 0.2 gm% (0.0-3.0); Hemoglobin (Hb) 11.9 g/dL (12.0-16.0); O2 Tension (PaO2), arterial 63.8 mmHg (80.0-100.0); Potassium - ABG Lab 3.15 mmol/L (3.70-5.30)
[2019-08-18] MEDS: Cefepime 2 GM in Sodium Chloride 0.9% 100 ML IVPB SCH ×3 (07:52→23:07)
--- NOTE | 2019-08-18 07:59 | RAD ---
EXAM: Single view of the chest HISTORY: Sepsis COMPARISON: 08/17/2019 FINDINGS: Single view of the chest shows a normal sized cardiomediastinal silhouette. An endotrachea l tube is seen with its tip between the clavicles. Tubes overlying both sides of the chest may represent RADIOLOGY PRACTITIONER ASSISTANT shunts.. There may be a small left pleural effusion. The bones are unremarkable. IMPRESSION: Possible small left pleural effusion.
[2019-08-18] MEDS: levETIRAcetam 500 mg/5 ml Oral Solution PO SCH ×2 (08:10→20:17)
[2019-08-18] MEDS: Enoxaparin Sodium 40 MG/0.4 ML SYRINGE SC SCH (08:10)
[2019-08-18] MEDS: Linezolid 600 MG in Premix Bag 1 BAG IVPB SCH ×2 (08:11→20:17)
[2019-08-18 09:41] LABS: pH, Arterial 7.55 (7.35-7.45)
[2019-08-18 09:42] LABS: Puncture Site L.R.
--- NOTE | 2019-08-18 13:35 | CON ---
DATE OF CONSULTATION: 08/18/2019 HISTORY OF PRESENT ILLNESS: Brigida Norwood is a 49-year-old female from the skilled nursing, presented with respiratory failure. She is intubated on the vent. CT of chest showed bilateral bronchopneumonia. She has had longstanding history of recurrent respiratory failure; in fact, she was just recently discharged from this institute. PAST MEDICAL HISTORY: Pertinent for hemorrhagic stroke with a shunt in place, reflux, PEG in place, hypertension, asthma, epilepsy, previous pneumonia. PAST SURGICAL HISTORY: Right temporal hemicraniectomy, aneurysm of the RMCA surgery orifice, ankle, gallbladder, trach, PEG. SOCIAL HISTORY: No history of alcohol or tobacco abuse. She apparently has a history of bipolar disorder. HOME MEDICINES: 1. Norvasc 5. 2. DuoNeb. 3. Ativan. 4. Flagyl. 5. Morphine. 6. Keppra 750 twice a day. She is now started on Zyvox and Maxipime. Cultures are pending. DISCHARGE DIAGNOSES: On 08/14, two days ago, revealed diagnoses of pneumonia, hypoxemia, encephalopathy. ALLERGIES: PENICILLIN, VANCOMYCIN, CODEINE, LEVAQUIN. PHYSICAL EXAMINATION: GENERAL: She is sedated. VITAL SIGNS: Pulse is 80, blood pressure , respirations 20. Afebrile. CHEST: No wheezing. No crackles. CARDIAC: Normal S1, S2. No gallops. ABDOMEN: No masses. DIAGNOSTIC DATA: White count 13,000, H and H of 12 and 37, platelet count 182. Urine shows WBCs. Chemistry profile shows normal BUN and creatinine, reactive protein was 3. BNP was normal. She had a chest x-ray, which was not very remarkable on admission, but the CT scan did show more pronounced infiltrates so it is possible some of this may be chronic versus atelectatic changes rather than true superimposed aspiration pneumonia. PLAN: I will continue antibiotics for the time being. Minimize sedation. Hopefully, we can try to wean and extubate in several days. Continue nutrition, PT. TIME SPENT: This is a 45-minute critical care time. Job ID: [id number]
[2019-08-19 03:52] LABS: #Eosinphils 0.2 thou/uL (0.0-0.7); #Lymphocytes 1.2 thou/uL (1.20-3.40); #Monocytes 0.3 thou/uL (0.11-0.59); #Neutrophils 8.3 thou/uL (1.40-6.50); %Basophils 0.1 % (0.0-1.0); %Eosinophils 1.8 % (0.0-10.0); %Lymphocytes 11.8 % (21.0-51.0); %Monocytes 3.4 % (0.0-10.0); %Neutrophils 82.9 % (42.0-75.0); Hemoglobin 10.9 g/dL (12.0-16.0); Mean Corpuscular HGB CONC 32.3 g/dL (32.0-36.0); Mean Corpuscular Hemoglobin 29.3 pg (27.0-31.0); Mean Corpuscular Volume 90.9 fL (78.0-98.0); Mean Platelet Volume 8.5 fL (7.4-10.4); Platelet Count 245 thou/uL (130-400); RBC Distribution Width 13.3 % (11.5-14.5)
[2019-08-19 04:12] LABS: Anion Gap 9 mmol/L (10-20); BUN (Urea Nitrogen) 11 mg/dL (7.0-18.7); Calc. Creatinine Clearance 152 mL/min (70-130); Calcium 8.2 mg/dL (7.8-10.44); Carbon Dioxide 27 mmol/L (22-29); Chloride 101 mmol/L (98-107); Estimated GFR-MDRD Greater than 90; Glucose 103 mg/dL (70-105); Potassium 3.2 mmol/L (3.5-5.1); Sodium 134 mmol/L (136-145)
[2019-08-19 06:49] LABS: Actual Bicarbonate (HCO3a) 29.6 mEq/L (22-28); Base Excess (BEa) 5.6 mEq/L (-2.0 to +3.0); CO2 Tension 40.7 mmHg (35.0-45.0); Calcium, Ionized (arterial) 1.14 mmol/L (1.12-1.30); Carboxyhemoglobin (COHb) 0.3 gm% (0.0-3.0); Hemoglobin (Hb) 11.4 g/dL (12.0-16.0); O2 Tension (PaO2), arterial 100.5 mmHg (80.0-100.0); Potassium - ABG Lab 3.07 mmol/L (3.70-5.30); pH, Arterial 7.48 (7.35-7.45)
[2019-08-19] MEDS ORDERED: Electrolyte Replacement Protoc 1 EACH EACH FS PRN (06:49)
--- NOTE | 2019-08-19 07:12 | PRG ---
DATE OF SERVICE: 08/19/2019 TIME SPENT: 35 minutes of critical care time. SUBJECTIVE: The patient remains intubated on mechanical ventilation. It does not look like she is receiving anything in the way of sedation. She will fold her eyes when stimulated and move her extremities reflexively. OBJECTIVE: VITAL SIGNS: On exam, temperature 97.5 with a T-max of 100.0, pulse 78, blood pressure 113/72, and O2 saturation 100%. HEENT: Remarkable for encephalomalacia. NECK: No adenopathy or JVD. LUNGS: Clear. CARDIAC: S1 and S2 regular. ABDOMEN: Soft and nontender. EXTREMITIES: Mild generalized edema throughout. LABORATORY DATA: White blood cell count 10, hematocrit 33.7, and platelet count 245. ABG pending. Sodium 134, potassium 3.2, chloride 101, CO2 of 27, BUN 11, creatinine 0.4, and glucose 103. ASSESSMENT: 1. Pneumonia versus bilateral atelectasis. 2. History of previous hemorrhagic stroke with a long and complicated history afterwards including tracheostomy placement, PEG tube placement, C WEB DEVELOPER shunt placement, and multiple complications from the brain bleed. PLAN: 1. Await today's ABG. 2. Replace potassium for hypokalemia. 3. Continue IV antibiotics. 4. Continue enteral tube feeds. 5. I believe in the past. The patient's family had gone more a palliative route. I am not sure what the status of that is now. Given her severe debilitation, she would probably be easier to manage with a tracheostomy, but I need to meet with the family and get their feedback. Job ID: [id number]
[2019-08-19 07:22] LABS: Puncture Site L.R.
[2019-08-19 07:23] LABS: ALV-art Gradient 133.825 (0-20)
[2019-08-19] MEDS: Cefepime 2 GM in Sodium Chloride 0.9% 100 ML IVPB SCH ×2 (07:53→15:42)
--- NOTE | 2019-08-19 07:54 | RAD ---
XR Chest 1 View Portable History: Ventilated patient Comparison: Radiograph prior day Findings: Endotracheal tube is similar. Catheter projects over the left hemithorax. Suture material o rigoberto the left lung. No new confluent airspace consolidation. Impression: Similar examination of the chest.
[2019-08-19] MEDS: Enoxaparin Sodium 40 MG/0.4 ML SYRINGE SC SCH (08:03)
[2019-08-19] MEDS: Linezolid 600 MG in Premix Bag 1 BAG IVPB SCH ×2 (08:03→20:41)
[2019-08-19] MEDS: levETIRAcetam 500 mg/5 ml Oral Solution PO SCH ×2 (08:04→20:41)
[2019-08-19] MEDS ORDERED: Pantoprazole 40 MG VIAL IVP SCH (09:45)
[2019-08-19] MEDS: Sodium Chloride 0.9% 1,000 ML IV SCH (17:19)
--- NOTE | 2019-08-19 19:43 | PDOC.HOSPP ---
- Subjective Encounter Date: 08/19/19 Encounter Time: 15:30 Subjective: Pt seen for followup re: acute hypoxic respiratory failure. Pt is intubated. - Objective Vital Signs & Weight: Vital Signs (12 hours) Temp Pulse Resp BP Pulse Ox 08/19/19 18:00 11 L 08/19/19 16:00 98.8 F 32 H 08/19/19 15:21 85 131/79 08/19/19 14:00 17 08/19/19 12:00 98.2 F 12 08/19/19 10:28 74 142/88 H 08/19/19 10:00 11 L 08/19/19 08:00 98.5 F 12 100 Weight Admit Weight 137 lb Weight 137 lb 12.623 oz Most Recent Monitor Data Heart Rate from ECG 83 NIBP 141/88 NIBP BP-Mean 105 Respiration from ECG 17 SpO2 100 I&O: 08/18/19 08/19/19 08/20/19 06:59 06:59 06:59 Intake Total 127 2330 1640 Output Total 440 546 6858 Balance -203 1693 450 Result Diagrams: 08/19/19 03:26 08/19/19 03:26 Additional Labs: Accuchecks 08/19/19 08/19/19 08/18/19 17:16 11:32 23:39 POC Glucose 93 117 H 119 H labs and MARs reviewed by me EKG Reviewed by me: Yes (Tele: NSR) Hospitalist ROS - Review of Systems ROS unobtainable: due to endotracheal tube - Medication Medications: Active Medications Generic Name Dose Route Start Last Admin Trade Name Freq PRN Reason Stop Dose Admin Enoxaparin Sodium 40 mg 08/18/19 09:00 08/19/19 08:03 Lovenox SC 40 mg 0900 ALAN Administration Cefepime HCl 2 gm/ Sodium 100 mls @ 200 mls/hr 08/18/19 08:00 08/19/19 15:42 Chloride IVPB 100 mls 0800,1600,2359 ALAN Administration Linezolid 600 mg/ Device 300 mls @ 150 mls/hr 08/18/19 09:00 08/19/19 08:03 IVPB 300 mls Q12HR ALAN Administration Sodium Chloride 1,000 mls @ 50 mls/hr 08/18/19 03:00 08/19/19 17:19 Normal Saline 0.9% IV 1,000 mls .Q20H ALAN Administration Levetiracetam 750 mg 08/18/19 09:00 08/19/19 08:04 Keppra Oral Solution PO 750 mg BID ALAN Administration Sodium Chloride 10 ml 08/18/19 09:00 08/19/19 08:04 Flush - Normal Saline IVF 10 ml Q12HR ALAN Administration - Exam General - other findings: Intubated Eye: anicteric sclera ENT: moist mucosa ENT - other findings: ETT Neck: no thyromegaly Heart: RRR Respiratory: CTAB Gastrointestinal: soft, normal bowel sounds Gastrointestinal - other findings: G-tube Extremities: no cyanosis Neurological - other findings: Unable to assess Psychiatric - other findings: Unable to assess Hosp A/P - Plan - Problem (1) Acute respiratory failure with hypoxia Code(s): J96.01 - ACUTE RESPIRATORY FAILURE WITH HYPOXIA Status: Acute (2) Pneumonia Code(s): J18.9 - PNEUMONIA, UNSPECIFIED ORGANISM Status: Acute (3) DM2 (diabetes mellitus, type 2) Status: Chronic Qualifiers: Diabetes mellitus intermediate accountant insulin use: without intermediate accountant use Diabetes mellitus complication status: with hyperglycemia Qualified Code(s): E11.65 - Type 2 diabetes mellitus with hyperglycemia (4) Seizure disorder Code(s): G40.909 - EPILEPSY, UNSP, NOT INTRACTABLE, WITHOUT STATUS EPILEPTICUS Status: Chronic (5) trach and peg Status: Chronic (6) HTN (hypertension) Code(s): I10 - ESSENTIAL (PRIMARY) HYPERTENSION Status: Chronic Qualifiers: Hypertension type: essential hypertension Qualified Code(s): I10 - Essential (primary) hypertension - Plan Plan: respiratory failure - Intubated and mechanically ventilated, in CCU pnuemonia - on cefepime and Zyvox - f/u blood sputum cultures seizures -continue home meds dm -continue aqccuchecks and insulin sliding scale -blood sugars controlled htn -controlled
[2019-08-20] MEDS: Cefepime 2 GM in Sodium Chloride 0.9% 100 ML IVPB SCH ×4 (00:15→23:26)
[2019-08-20 03:38] LABS: #Eosinphils 0.1 thou/uL (0.0-0.7); #Lymphocytes 0.9 thou/uL (1.20-3.40); #Monocytes 0.3 thou/uL (0.11-0.59); #Neutrophils 6.2 thou/uL (1.40-6.50); %Basophils 0.4 % (0.0-1.0); %Eosinophils 1.7 % (0.0-10.0); %Lymphocytes 11.5 % (21.0-51.0); %Monocytes 4.3 % (0.0-10.0); %Neutrophils 82.2 % (42.0-75.0); Hemoglobin 10.7 g/dL (12.0-16.0); Mean Corpuscular HGB CONC 32.9 g/dL (32.0-36.0); Mean Corpuscular Volume 91.3 fL (78.0-98.0); Mean Platelet Volume 8.5 fL (7.4-10.4); Platelet Count 265 thou/uL (130-400); RBC Distribution Width 13.4 % (11.5-14.5); Red Blood Cell (RBC) Count 3.58 mill/uL (4.20-5.40); White Blood Cell (WBC) Count 7.5 thou/uL (4.8-10.8)
[2019-08-20 03:58] LABS: Anion Gap 10 mmol/L (10-20); BUN (Urea Nitrogen) 7 mg/dL (7.0-18.7); Calc. Creatinine Clearance 143 mL/min (70-130); Calcium 8.1 mg/dL (7.8-10.44); Carbon Dioxide 25 mmol/L (22-29); Chloride 106 mmol/L (98-107); Estimated GFR-MDRD Greater than 90; Glucose 104 mg/dL (70-105); Potassium 3.5 mmol/L (3.5-5.1); Sodium 137 mmol/L (136-145)
[2019-08-20] MEDS ORDERED: Potassium Chloride 40 MEQ in Sodium Chloride 0.9% 250 ML 250 ML IV SCH (06:30)
[2019-08-20 06:48] LABS: Base Excess (BEa) 1.7 mEq/L (-2.0 to +3.0); CO2 Tension 45.5 mmHg (35.0-45.0); Calcium, Ionized (arterial) 1.17 mmol/L (1.12-1.30); Carboxyhemoglobin (COHb) 0.3 gm% (0.0-3.0); Hemoglobin (Hb) 11.3 g/dL (12.0-16.0); Potassium - ABG Lab 3.54 mmol/L (3.70-5.30); pH, Arterial 7.39 (7.35-7.45)
[2019-08-20 07:41] LABS: Puncture Site LRA
[2019-08-20 07:42] LABS: ALV-art Gradient 106.325 (0-20)
[2019-08-20] MEDS: levETIRAcetam 500 mg/5 ml Oral Solution PO SCH ×2 (08:21→20:43)
[2019-08-20] MEDS: Scopolamine 1.5 mg/72 hour Patch TD SCH (08:21)
--- NOTE | 2019-08-20 08:21 | PRG ---
DATE OF SERVICE: 08/20/2019 35 minutes of critical care time. SUBJECTIVE: The patient remains intubated on mechanical ventilation. OBJECTIVE: VITAL SIGNS: Temperature 99, pulse 98, blood pressure 131/85, O2 saturation 100%. NEUROLOGIC: She is poorly responsive. She will gag when suctioned, does not open her eyes to commands. She does clench her right fist. HEENT: Encephalomalacia. Oropharynx is intubated. NECK: No adenopathy. Old trach scar well healed. LUNGS: Fairly clear. CARDIOVASCULAR: S1 and S2. Regular. ABDOMEN: Soft. EXTREMITIES: No edema except in the arms. LABORATORY DATA: Sodium 137, potassium 3.5, chloride 106, CO2 of 25, BUN 7, creatinine 0.5, and glucose 104. ABG pending. White blood cell count 7.5, hematocrit 32.6, and platelet count 265. Chest x-ray shows no significant change. ASSESSMENT: 1. [id number] respiratory failure requiring mechanical ventilation. 2. History of hemorrhagic stroke with a long and complicated medical course afterwards including tracheostomy placement, percutaneous endoscopic gastrostomy tube placement, ventriculoperitoneal shunt placement, and multiple complications from the brain bleed. DISCUSSION: We are essentially left with a moribund patient who probably cannot control her airway. I believe in the past the patient was hospiced, but the family rescinded this. I think they are left with the choice of re-doing the tracheostomy versus extubation and palliative care. She is at the point where she can probably be extubated as she does not really have much in the way of respiratory requirements. However, I have no confidence that she will be able to keep her airway clear. I have added a scopolamine patch to help control her secretions. Job ID: [id number]
[2019-08-20] MEDS: Pantoprazole 40 MG VIAL IVP SCH (08:22)
[2019-08-20] MEDS: Enoxaparin Sodium 40 MG/0.4 ML SYRINGE SC SCH (08:22)
[2019-08-20] MEDS: Linezolid 600 MG in Premix Bag 1 BAG IVPB SCH ×2 (08:29→20:43)
--- NOTE | 2019-08-20 09:39 | RAD ---
PORTABLE CHEST 1 VIEW: DATE: 08/20/2019. TIME: 3:32 AM. HISTORY: Respiratory failure. COMPARISON: Previous day. FINDINGS/IMPRESSION: No significant interval change is seen since the previous day's exam. POS: [facility]
[2019-08-20] MEDS: Sodium Chloride 0.9% 1,000 ML IV SCH ×2 (15:00→21:13)
--- NOTE | 2019-08-20 18:51 | PDOC.HOSPP ---
- Subjective Encounter Date: 08/20/19 Encounter Time: 12:00 Subjective: Pt seen for followup for acute hypoxic respiratory failure. Pt is intubated. - Objective Vital Signs & Weight: Vital Signs (12 hours) Temp Pulse Resp BP Pulse Ox 08/20/19 18:00 8 L 08/20/19 16:00 12 08/20/19 15:00 99.0 F 08/20/19 14:02 87 146/96 H 08/20/19 14:00 12 08/20/19 12:15 11 L 08/20/19 12:00 8 L 08/20/19 11:00 99.6 F 08/20/19 10:20 107 H 155/93 H 08/20/19 10:00 12 08/20/19 08:00 12 100 08/20/19 07:00 99.2 F Weight Admit Weight 137 lb Weight 137 lb 12.623 oz Most Recent Monitor Data Heart Rate from ECG 82 NIBP 145/91 NIBP BP-Mean 109 Respiration from ECG 14 SpO2 100 I&O: 08/19/19 08/20/19 08/21/19 06:59 06:59 06:59 Intake Total 2330 3027 1748 Output Total 637 2340 1795 Balance 1693 687 -47 Result Diagrams: 08/20/19 03:23 08/20/19 03:23 Additional Labs: Accuchecks 08/20/19 08/20/19 08/20/19 16:35 12:19 00:23 POC Glucose 102 105 121 H Labs and MARs reviewed by me EKG Reviewed by me: Yes (Tele: NSR) Hospitalist ROS - Review of Systems ROS unobtainable: due to endotracheal tube - Medication Medications: Active Medications Generic Name Dose Route Start Last Admin Trade Name Freq PRN Reason Stop Dose Admin Enoxaparin Sodium 40 mg 08/18/19 09:00 08/20/19 08:22 Lovenox SC 40 mg 0900 ALAN Administration Cefepime HCl 2 gm/ Sodium 100 mls @ 200 mls/hr 08/18/19 08:00 08/20/19 14:59 Chloride IVPB 100 mls 0800,1600,2359 ALAN Administration Linezolid 600 mg/ Device 300 mls @ 150 mls/hr 08/18/19 09:00 07/15/20 08:29 IVPB 300 mls Q12HR ALAN Administration Sodium Chloride 1,000 mls @ 50 mls/hr 08/18/19 03:00 08/20/19 15:00 Normal Saline 0.9% IV 1,000 mls .Q20H ALAN Administration Levetiracetam 750 mg 08/18/19 09:00 08/20/19 08:21 Keppra Oral Solution PO 750 mg BID ALAN Administration Pantoprazole Sodium 40 mg 08/20/19 09:00 08/20/19 08:22 Protonix IVP 40 mg DAILY ALAN Administration Scopolamine 1.5 mg 08/20/19 07:45 08/20/19 08:21 Transderm Scop TD 1.5 mg Q3D ALAN Administration Sodium Chloride 10 ml 08/18/19 09:00 08/20/19 08:30 Flush - Normal Saline IVF 10 ml Q12HR ALAN Administration - Exam General - other findings: s/p intubation ENT - other findings: ETT Neck: no thyromegaly Heart: RRR Respiratory: CTAB Gastrointestinal: soft, non-tender Gastrointestinal - other findings: G-tube Extremities: no cyanosis Psychiatric - other findings: Unable to assess Hosp A/P - Plan - Problem (1) Acute respiratory failure with hypoxia Code(s): J96.01 - ACUTE RESPIRATORY FAILURE WITH HYPOXIA Status: Acute (2) Pneumonia Code(s): J18.9 - PNEUMONIA, UNSPECIFIED ORGANISM Status: Acute (3) DM2 (diabetes mellitus, type 2) Status: Chronic Qualifiers: Diabetes mellitus fpc insulin use: without exterminator use Diabetes mellitus complication status: with hyperglycemia Qualified Code(s): E11.65 - Type 2 diabetes mellitus with hyperglycemia (4) Seizure disorder Code(s): G40.909 - EPILEPSY, UNSP, NOT INTRACTABLE, WITHOUT STATUS EPILEPTICUS Status: Chronic (5) trach and peg Status: Chronic (6) HTN (hypertension) Code(s): I10 - ESSENTIAL (PRIMARY) HYPERTENSION Status: Chronic Qualifiers: Hypertension type: essential hypertension Qualified Code(s): I10 - Essential (primary) hypertension - Plan Plan: respiratory failure - Intubated and mechanically ventilated pnuemonia - continue cefepime and Zyvox seizures -continue home meds dm -continue aqccuchecks and insulin sliding scale htn -controlled
[2019-08-21 04:22] LABS: #Eosinphils 0.3 thou/uL (0.0-0.7); #Lymphocytes 1.1 thou/uL (1.20-3.40); #Monocytes 0.4 thou/uL (0.11-0.59); #Neutrophils 3.4 thou/uL (1.40-6.50); %Basophils 0.1 % (0.0-1.0); %Eosinophils 5.1 % (0.0-10.0); %Lymphocytes 20.8 % (21.0-51.0); %Monocytes 7.4 % (0.0-10.0); %Neutrophils 66.7 % (42.0-75.0); Hemoglobin 11.3 g/dL (12.0-16.0); Mean Corpuscular HGB CONC 30.8 g/dL (32.0-36.0); Mean Corpuscular Hemoglobin 28.3 pg (27.0-31.0); Mean Platelet Volume 8.5 fL (7.4-10.4); Platelet Count 283 thou/uL (130-400); RBC Distribution Width 13.3 % (11.5-14.5); Red Blood Cell (RBC) Count 3.99 mill/uL (4.20-5.40)
[2019-08-21 04:43] LABS: Anion Gap 11 mmol/L (10-20); BUN (Urea Nitrogen) 7 mg/dL (7.0-18.7); Calc. Creatinine Clearance 160 mL/min (70-130); Calcium 8.5 mg/dL (7.8-10.44); Carbon Dioxide 25 mmol/L (22-29); Chloride 106 mmol/L (98-107); Estimated GFR-MDRD Greater than 90; Glucose 86 mg/dL (70-105); Potassium 3.9 mmol/L (3.5-5.1); Sodium 138 mmol/L (136-145)
[2019-08-21 04:49] VITALS: BMI 25.3
[2019-08-21 07:00] LABS: Actual Bicarbonate (HCO3a) 29.9 mEq/L (22-28); Base Excess (BEa) 4.2 mEq/L (-2.0 to +3.0); CO2 Tension 49.1 mmHg (35.0-45.0); Carboxyhemoglobin (COHb) 0.2 gm% (0.0-3.0); Hemoglobin (Hb) 13.5 g/dL (12.0-16.0); O2 Tension (PaO2), arterial 100.9 mmHg (80.0-100.0); Potassium - ABG Lab 3.44 mmol/L (3.70-5.30)
[2019-08-21 07:14] LABS: Puncture Site RRAD
[2019-08-21 07:15] LABS: ALV-art Gradient 51.625 (0-20)
--- NOTE | 2019-08-21 07:48 | RAD ---
XR Chest 1 View Portable History: Ventilated patient Comparison: Radiograph prior day Findings: Endotracheal tube tip above the cecy approximately 1 cm. Shunt catheters are similar. No pneumothorax. No definite effusion. Continued lower lobe atelectasis. Impression: No significant interval improvement in lung aeration.
--- NOTE | 2019-08-21 08:03 | PRG ---
DATE OF SERVICE: 35 minutes of critical care time. SUBJECTIVE: The patient remains intubated on mechanical ventilation. She was tried on pressure support ventilation yesterday, but apparently became tachypneic and be placed back on . OBJECTIVE: VITAL SIGNS: Temperature 98.7, pulse 80, and blood pressure 127/91. 24-hour intake , output 3610. HEENT: Pupils sluggishly reactive. Oropharynx and intubated. NECK: No adenopathy or JVD. LUNGS: Clear. CARDIAC: S1 and S2. Regular. ABDOMEN: Soft. EXTREMITIES: Generalized mild edema with poor muscle tone throughout. IMAGING: Her chest x-ray shows no acute changes. LABORATORIES: White blood cell count 5, hematocrit 36.7, and platelet count 283. PH 7.4, pCO2 of 49, pO2 of 100 on SIMV rate 6, tidal volume 400, PEEP 5, pressure 10, and FiO2 of 30%. Sodium 138, potassium 3.9, chloride 106, CO2 of 25, BUN 7, creatinine 0.5, and glucose 86. ASSESSMENT: 1. Acute on chronic respiratory failure requiring mechanical ventilation. 2. History of hemorrhagic stroke with a long and complicated medical course afterwards. PLAN: I really think the family needs to decide firmly whether they wanted to have a repeat tracheostomy placed back in the snf or go the palliative route. Personally, I would favor the palliative route given the patient's poor prognosis. I will try on pressure support ventilation again today. She is currently being treated for MRSA in her sputum with linezolid. She is also on cefepime. She is getting enteral tube feeds. Job ID: [id number]
[2019-08-21] MEDS: Linezolid 600 MG in Premix Bag 1 BAG IVPB SCH ×2 (09:29→22:22)
[2019-08-21] MEDS: Cefepime 2 GM in Sodium Chloride 0.9% 100 ML IVPB SCH (09:30)
[2019-08-21] MEDS: levETIRAcetam 500 mg/5 ml Oral Solution PO SCH ×2 (09:31→22:23)
[2019-08-21] MEDS: Enoxaparin Sodium 40 MG/0.4 ML SYRINGE SC SCH (09:31)
[2019-08-21] MEDS: Pantoprazole 40 MG VIAL IVP SCH (09:35)
[2019-08-21 10:48] VITALS: BP 141/93
[2019-08-21] MEDS ORDERED: Norepinephrine 8 MG/0.9% NS 250 ML IVPB SCH (12:47)
[2019-08-21] MEDS: HumaLOG 300 UNITS/3 ML VIAL SC PRN (14:19)
--- NOTE | 2019-08-21 19:46 | PDOC.HOSPP ---
- Subjective Encounter Date: 08/21/19 Encounter Time: 16:10 Subjective: Pt sen for followup for acute respiratory failure. Intubated. - Objective Vital Signs & Weight: Vital Signs (12 hours) Temp Pulse Resp BP 08/21/19 18:00 6 L 08/21/19 16:00 13 08/21/19 14:00 82 6 L 08/21/19 13:00 97.8 F 08/21/19 12:00 6 L 08/21/19 10:47 89 141/93 H 08/21/19 10:00 12 08/21/19 08:00 97.6 F 08/21/19 07:53 11 L Weight Admit Weight 137 lb Weight 137 lb 12.623 oz Most Recent Monitor Data Heart Rate from ECG 68 NIBP 96/68 NIBP BP-Mean 77 Respiration from ECG 13 SpO2 100 I&O: 08/20/19 08/21/19 08/22/19 06:59 06:59 06:59 Intake Total 3027 3099 667 Output Total 4420 0820 1380 Balance 792 -621 -749 Result Diagrams: 08/21/19 03:52 08/21/19 03:52 Additional Labs: Accuchecks 08/21/19 08/21/19 08/21/19 17:51 14:21 03:07 POC Glucose 118 H 169 H 84 08/20/19 20:42 POC Glucose 110 Labs and MARs reviewed by me EKG Reviewed by me: Yes (Tele: NSR) Hospitalist ROS - Review of Systems ROS unobtainable: due to endotracheal tube - Medication Medications: Active Medications Generic Name Dose Route Start Last Admin Trade Name Teofilo PRN Reason Stop Dose Admin Enoxaparin Sodium 40 mg 08/18/19 09:00 08/21/19 09:31 Lovenox SC 40 mg 0900 ALAN Administration Linezolid 600 mg/ Device 300 mls @ 150 mls/hr 08/18/19 09:00 08/21/19 09:29 IVPB 300 mls Q12HR ALAN Administration Sodium Chloride 1,000 mls @ 50 mls/hr 08/18/19 03:00 08/20/19 21:13 Normal Saline 0.9% IV 1,000 mls .Q20H ALAN Administration Norepinephrine Bitartrate 250 mls @ 0 mls/hr 08/21/19 12:47 07/16/20 13:00 Levophed IVPB 250 mls INF ALAN Administration Protocol Titrate Insulin Human Lispro 0 units 08/18/19 03:47 08/21/19 14:19 Humalog SC 2 unit .MILD SLIDING SCALE PRN Administration Mild Correctional Scale Levetiracetam 750 mg 08/18/19 09:00 08/21/19 09:31 Keppra Oral Solution PO 750 mg BID ALAN Administration Pantoprazole Sodium 40 mg 08/20/19 09:00 08/21/19 09:35 Protonix IVP 40 mg DAILY ALAN Administration Scopolamine 1.5 mg 08/20/19 07:45 08/20/19 08:21 Transderm Scop TD 1.5 mg Q3D ALAN Administration Sodium Chloride 10 ml 08/18/19 09:00 08/21/19 09:52 Flush - Normal Saline IVF 10 ml Q12HR ALAN Administration - Exam General - other findings: Intubated, mechanically ventilated ENT: normocephalic atraumatic Neck: symmetric, no thyromegaly, no lymphadenopathy Heart: RRR, no rubs Respiratory: CTAB Gastrointestinal: soft, non-tender Gastrointestinal - other findings: PEG tube Skin: no rashes Psychiatric - other findings: Could not assess Hosp A/P - Plan - Problem (1) Acute respiratory failure with hypoxia Code(s): J96.01 - ACUTE RESPIRATORY FAILURE WITH HYPOXIA Status: Acute (2) Pneumonia Code(s): J18.9 - PNEUMONIA, UNSPECIFIED ORGANISM Status: Acute (3) DM2 (diabetes mellitus, type 2) Status: Chronic Qualifiers: Diabetes mellitus halfway insulin use: without halfway use Diabetes mellitus complication status: with hyperglycemia Qualified Code(s): E11.65 - Type 2 diabetes mellitus with hyperglycemia (4) Seizure disorder Code(s): G40.909 - EPILEPSY, UNSP, NOT INTRACTABLE, WITHOUT STATUS EPILEPTICUS Status: Chronic (5) trach and peg Status: Chronic (6) HTN (hypertension) Code(s): I10 - ESSENTIAL (PRIMARY) HYPERTENSION Status: Chronic Qualifiers: Hypertension type: essential hypertension Qualified Code(s): I10 - Essential (primary) hypertension - Plan Plan: respiratory failure - Intubated and mechanically ventilated, in CCU pnuemonia - Pt is on linezolid seizures -continue home meds dm -aqccuchecks and insulin sliding scale htn -controlled PC team had meeting with family today. Pt is now DNAR. Plan is for extubation tomorrow.
[2019-08-22 03:55] LABS: #Eosinphils 0.1 thou/uL (0.0-0.7); #Lymphocytes 0.8 thou/uL (1.20-3.40); #Monocytes 0.4 thou/uL (0.11-0.59); #Neutrophils 8.8 thou/uL (1.40-6.50); %Basophils 0.2 % (0.0-1.0); %Eosinophils 0.7 % (0.0-10.0); %Lymphocytes 7.5 % (21.0-51.0); %Monocytes 3.9 % (0.0-10.0); %Neutrophils 87.7 % (42.0-75.0); Hemoglobin 11.1 g/dL (12.0-16.0); Mean Corpuscular HGB CONC 31.1 g/dL (32.0-36.0); Mean Corpuscular Volume 93.1 fL (78.0-98.0); Mean Platelet Volume 8.4 fL (7.4-10.4); Platelet Count 330 thou/uL (130-400); RBC Distribution Width 13.3 % (11.5-14.5); Red Blood Cell (RBC) Count 3.84 mill/uL (4.20-5.40)
[2019-08-22 04:14] LABS: Anion Gap 11 mmol/L (10-20); BUN (Urea Nitrogen) 10 mg/dL (7.0-18.7); Calc. Creatinine Clearance 135 mL/min (70-130); Calcium 8.7 mg/dL (7.8-10.44); Carbon Dioxide 27 mmol/L (22-29); Chloride 110 mmol/L (98-107); Estimated GFR-MDRD Greater than 90; Glucose 128 mg/dL (70-105); Potassium 3.8 mmol/L (3.5-5.1); Sodium 144 mmol/L (136-145)
[2019-08-22 07:03] LABS: Actual Bicarbonate (HCO3a) 27.1 mEq/L (22-28); Base Excess (BEa) -0.8 mEq/L (-2.0 to +3.0); Calcium, Ionized (arterial) 1.26 mmol/L (1.12-1.30); Carboxyhemoglobin (COHb) 0.6 gm% (0.0-3.0); Hemoglobin (Hb) 11.3 g/dL (12.0-16.0); Potassium - ABG Lab 3.74 mmol/L (3.70-5.30); pH, Arterial 7.27 (7.35-7.45)
[2019-08-22 08:08] LABS: CO2 Tension 60.7 mmHg (35.0-45.0); Puncture Site RRAD
[2019-08-22 08:09] LABS: ALV-art Gradient 40.025 (0-20)
--- NOTE | 2019-08-22 08:13 | PRG ---
DATE OF SERVICE: 08/22/2019 TIME SPENT: 35 minutes of critical care time. SUBJECTIVE: The patient remains intubated, on mechanical ventilation. It sounds like the family is leaning towards the compassionate extubation later today. She has been made a DNAR. OBJECTIVE: VITAL SIGNS: Today, her temperature is 97, pulse 73, blood pressure 117/77, but she is requiring Levophed 5 mcg/minute, O2 saturation 100%. HEENT: Shows encephalomalacia coming from the right catholic region. NECK: Old trach scar. LUNGS: Clear. CARDIAC: S1, S2. Regular. ABDOMEN: Soft. EXTREMITIES: Contracted. LABORATORY DATA: White blood cell count 10, hematocrit 35.8, and platelet count 330. Sodium 144, potassium 3.8, chloride 110, CO2 of 27, BUN 10, creatinine 0.5, and glucose 128. ASSESSMENT: 1. Convoluted history of a hemorrhagic stroke with multiple complications thereafter. 2. Respiratory failure requiring mechanical ventilation. 3. Sepsis syndrome. PLAN: I would agree with extubation and comfort care as I see no hope for reasonable recovery as this has been the case now for quite some time. Job ID: [id number]
[2019-08-22] MEDS: Enoxaparin Sodium 40 MG/0.4 ML SYRINGE SC SCH (08:51)
[2019-08-22] MEDS: Pantoprazole 40 MG VIAL IVP SCH (08:51)
[2019-08-22] MEDS: levETIRAcetam 500 mg/5 ml Oral Solution PO SCH ×2 (08:51→20:11)
[2019-08-22] MEDS: Linezolid 600 MG in Premix Bag 1 BAG IVPB SCH ×2 (08:52→20:10)
[2019-08-22] MEDS: Sodium Chloride 0.9% 1,000 ML IV SCH (08:55)
--- NOTE | 2019-08-22 14:57 | PQF ---
CLINICAL DOCUMENTATION CLARIFICATION FORM: Patient Name: LENIN NOLASCO Date of : 1970 Account: [id number] Admit Date: 08/17/2019 Facility: [facility] Dear Dr. Vaibhav Christianson Date / Time: 08/22/2019 Please exercise your independent, professional judgment in responding to the clarification form. Clinical indicators are provided on the bottom of this form for your review. Please check appropriate box(es): [ ] Sepsis due to: [ x ] Severe sepsis with associated acute organ dysfunction: [ x ] Acute Respiratory Failure [ ] Additional/Other: please specify: [ ] Localized infection without sepsis [ ] Other diagnosis __septic shock [ ] Unable to determine In addition, please specify: Present on Admission (POA): [ x ] Yes [ ] No [ ] Unable to determine For continuity of documentation, please document condition throughout progress notes and discharge summary. Thank You. To be completed by CDI/Coding staff for physician review: CLINICAL INDICATORS - SIGNS / SYMPTOMS / LABS / RESULTS AND LOCATION IN MR H&P 08/16: (Francisco) transfer from [facility]. due to resp. failure on mech. vent. A/P: respiratory failure pneumonia Nursing VS: 08/17 BP 112/76 HR 92 08/17 (Looney) WBC 13 08/21 (Navid) Sepsis syndrome RISK FACTORS / RESULTS AND LOCATION IN MR H&P 08/16 (Francisco) pt recently discharge 2 days ago after been hospitalize for aspiration pneumonia. PMHx of HTN, DM, ICH with sz's A/P: Acute respiratory failure with hypoxia. Pneumonia. TREATMENT / RESULTS AND LOCATION IN MR Order Resp: 08/17 Vent continuous Order 08/17-08/20: Cefepime 2 gm IV MAR: Order 08/17: IV Zyvox q 12hr MAR: Order 08/20: Levophed 250ml IV titration goal parameter: MAP > 65Edit Comment Thank you, Tiffany Torres RN, BSN [email or web address] This is a permanent part of the Medical Record [facility]
--- NOTE | 2019-08-22 19:54 | PDOC.HOSPP ---
- Subjective Encounter Date: 08/22/19 Encounter Time: 10:00 Subjective: Pt seen for followup for acute hypoxic respiratory failure. Intubated, could not complete ROS. - Objective Vital Signs & Weight: Vital Signs (12 hours) Temp Pulse Resp Pulse Ox 08/22/19 18:00 6 L 08/22/19 16:00 96.4 F L 6 L 08/22/19 15:46 70 08/22/19 14:00 6 L 08/22/19 12:00 97.5 F L 6 L 08/22/19 10:42 68 08/22/19 10:00 6 L 08/22/19 08:09 65 08/22/19 08:00 98.0 F 6 L 100 Weight Admit Weight 137 lb Weight 137 lb 12.623 oz Most Recent Monitor Data Heart Rate from ECG 67 NIBP 126/86 NIBP BP-Mean 99 Respiration from ECG 18 SpO2 100 I&O: 08/21/19 08/22/19 08/23/19 06:59 06:59 06:59 Intake Total 3099 2130 1703.0 Output Total 3610 1660 680 Balance -527 647 1521.0 Result Diagrams: 08/22/19 03:23 08/22/19 03:23 Additional Labs: Accuchecks 08/22/19 08/22/19 18:13 12:29 POC Glucose 112 H 125 H Labs and MARs reviewed by me EKG Reviewed by me: Yes (Tele; NSR) Hospitalist ROS - Review of Systems ROS unobtainable: due to endotracheal tube - Medication Medications: Active Medications Generic Name Dose Route Start Last Admin Trade Name Teofilo PRN Reason Stop Dose Admin Enoxaparin Sodium 40 mg 08/18/19 09:00 08/22/19 08:51 Lovenox SC 40 mg 0900 ALAN Administration Linezolid 600 mg/ Device 300 mls @ 150 mls/hr 08/18/19 09:00 08/22/19 08:52 IVPB 300 mls Q12HR ALAN Administration Sodium Chloride 1,000 mls @ 50 mls/hr 08/18/19 03:00 08/22/19 08:55 Normal Saline 0.9% IV 1,000 mls .Q20H ALAN Administration Norepinephrine Bitartrate 250 mls @ 0 mls/hr 08/21/19 12:47 08/21/19 13:00 Levophed IVPB 250 mls INF ALAN Administration Protocol Titrate Insulin Human Lispro 0 units 08/18/19 03:47 08/21/19 14:19 Humalog SC 2 unit .MILD SLIDING SCALE PRN Administration Mild Correctional Scale Levetiracetam 750 mg 08/18/19 09:00 08/22/19 08:51 Keppra Oral Solution PO 750 mg BID ALAN Administration Pantoprazole Sodium 40 mg 08/20/19 09:00 08/22/19 08:51 Protonix IVP 40 mg DAILY ALAN Administration Scopolamine 1.5 mg 08/20/19 07:45 08/20/19 08:21 Transderm Scop TD 1.5 mg Q3D ALAN Administration Sodium Chloride 10 ml 08/18/19 09:00 08/22/19 08:52 Flush - Normal Saline IVF 10 ml Q12HR ALAN Administration - Exam General - other findings: Intubated ENT: moist mucosa Neck - other findings: ETT Heart: RRR Respiratory: CTAB Gastrointestinal: soft Gastrointestinal - other findings: G-tube Psychiatric - other findings: Unable to assess Hosp A/P - Plan - Problem (1) Acute respiratory failure with hypoxia Code(s): J96.01 - ACUTE RESPIRATORY FAILURE WITH HYPOXIA Status: Acute (2) Pneumonia Code(s): J18.9 - PNEUMONIA, UNSPECIFIED ORGANISM Status: Acute (3) DM2 (diabetes mellitus, type 2) Status: Chronic Qualifiers: Diabetes mellitus rn long term care insulin use: without fci use Diabetes mellitus complication status: with hyperglycemia Qualified Code(s): E11.65 - Type 2 diabetes mellitus with hyperglycemia (4) Seizure disorder Code(s): G40.909 - EPILEPSY, UNSP, NOT INTRACTABLE, WITHOUT STATUS EPILEPTICUS Status: Chronic (5) trach and peg Status: Chronic (6) HTN (hypertension) Code(s): I10 - ESSENTIAL (PRIMARY) HYPERTENSION Status: Chronic Qualifiers: Hypertension type: essential hypertension Qualified Code(s): I10 - Essential (primary) hypertension - Plan Plan: respiratory failure - Intubated and mechanically ventilated, in CCU -Plan is for terminal extubation tomorrow pnuemonia - Continue linezolid seizures -continue Keppra dm -reasonable control of blood sugars htn -controlled
[2019-08-23 03:49] LABS: #Eosinphils 0.1 thou/uL (0.0-0.7); #Lymphocytes 1.1 thou/uL (1.20-3.40); #Monocytes 0.6 thou/uL (0.11-0.59); #Neutrophils 10.8 thou/uL (1.40-6.50); %Basophils 0.2 % (0.0-1.0); %Eosinophils 0.7 % (0.0-10.0); %Monocytes 4.7 % (0.0-10.0); %Neutrophils 85.5 % (42.0-75.0); Hemoglobin 11.1 g/dL (12.0-16.0); Mean Corpuscular HGB CONC 31.4 g/dL (32.0-36.0); Mean Corpuscular Hemoglobin 29.2 pg (27.0-31.0); Mean Platelet Volume 8.2 fL (7.4-10.4); Platelet Count 320 thou/uL (130-400); RBC Distribution Width 13.2 % (11.5-14.5); White Blood Cell (WBC) Count 12.6 thou/uL (4.8-10.8)
[2019-08-23 04:10] LABS: Anion Gap 10 mmol/L (10-20); BUN (Urea Nitrogen) 10 mg/dL (7.0-18.7); Calc. Creatinine Clearance 163 mL/min (70-130); Calcium 8.7 mg/dL (7.8-10.44); Carbon Dioxide 31 mmol/L (22-29); Chloride 107 mmol/L (98-107); Estimated GFR-MDRD Greater than 90; Glucose 115 mg/dL (70-105); Potassium 3.7 mmol/L (3.5-5.1); Sodium 144 mmol/L (136-145)
[2019-08-23 07:36] LABS: Actual Bicarbonate (HCO3a) 28.8 mEq/L (22-28); Base Excess (BEa) 2.3 mEq/L (-2.0 to +3.0); CO2 Tension 53.6 mmHg (35.0-45.0); Carboxyhemoglobin (COHb) 0.3 gm% (0.0-3.0); Hemoglobin (Hb) 11.7 g/dL (12.0-16.0); O2 Tension (PaO2), arterial 98.8 mmHg (80.0-100.0); Potassium - ABG Lab 3.57 mmol/L (3.70-5.30); pH, Arterial 7.35 (7.35-7.45)
[2019-08-23 07:53] LABS: Puncture Site RRAD
[2019-08-23] MEDS: Scopolamine 1.5 mg/72 hour Patch TD SCH (08:14)
[2019-08-23] MEDS ORDERED: Morphine 2 MG/ML VIAL SLOW IVP PRN (08:22)
[2019-08-23] MEDS ORDERED: Haloperidol Lactate 5 MG/ML VIAL SLOW IVP PRN (08:23)
[2019-08-23] MEDS: HumaLOG 300 UNITS/3 ML VIAL SC PRN (09:14)
[2019-08-23 10:01] VITALS: TEMP 97.5
--- NOTE | 2019-08-23 20:06 | DIS ---
DATE OF ADMISSION: 08/17/2019 DATE OF DISCHARGE: 08/23/2019 HOSPITAL COURSE: Ms. Norwood is a 49-year-old female with a medical history of hemorrhagic stroke, seizures, and dysphagia requiring PEG tube feeding, who presented with acute respiratory failure. She was discharged 2 days prior to presentation after being treated for aspiration pneumonia. On the day prior to presentation, she presented to [facility] with respiratory distress, but was discharged back to her correction. She then presented again to the [place] ED and required intubation, after which, she was transferred to the [facility]. She was diagnosed with septic shock due to hospital-acquired pneumonia and was started on broad-spectrum antibiotics and pressors, but did not exhibit significant recovery few days after presentation. After discussion with the family, it was decided not to replace her trach to perform terminal extubation. The patient shortly after extubation with the family present at the patient's bedside. Job ID: [id number]
--- NOTE | 2019-08-24 09:15 | PRG ---
DATE OF SERVICE: 08/23/2019 The patient was made DNR this morning. She was extubated by the nurses as per the family's wishes. She was extubated at 0825. She shortly thereafter. Family at the bedside. ASSESSMENT: 1. Respiratory failure. 2. Baseline cerebrovascular accident. 3. Sepsis syndrome. Job ID: [id number]
== END 2019-08-23 10:04 | disposition expired | DRG 870 ==
LOC: CCU 21:04
PROVIDERS: ADMIT Internal Medicine; ATTEND Internal Medicine
PROC: 0BH17EZ Insertion of Endotracheal Airway into Trachea, Via Natural or Artificial Opening (ICD-10-PCS; principal; 2019-08-18)
PROC: 5A1955Z Respiratory Ventilation, Greater than 96 Consecutive Hours (ICD-10-PCS; 2019-08-18)
DX: A41.9 Sepsis, unspecified organism (principal); J96.21 Acute and chronic respiratory failure with hypoxia; R65.21 Severe sepsis with septic shock; J69.0 Pneumonitis due to inhalation of food and vomit; Z66 Do not resuscitate; R13.10 Dysphagia, unspecified; G40.909 Epilepsy, unspecified, not intractable, without status epilepticus; I10 Essential (primary) hypertension; F31.9 Bipolar disorder, unspecified; F41.9 Anxiety disorder, unspecified; E11.65 Type 2 diabetes mellitus with hyperglycemia; Z90.49 Acquired absence of other specified parts of digestive tract; Z93.1 Gastrostomy status; Z93.0 Tracheostomy status; Z79.4 Long term (current) use of insulin; Z88.1 Allergy status to other antibiotic agents; Z88.0 Allergy status to penicillin; Z88.8 Allergy status to other drugs, medicaments and biological substances
CPT/HCPCS: 36415; 36416; 71045; 80048; 82805; 84145; 85007; 85025; 85027; 87040; 87070; 87077; 87081; 87186; 87205; 94002; 94003; C9113; J0692; J1650; J2020; J3490; J7050